=== PATIENT | male | born 1940 | race Caucasian/White ===

== ENCOUNTER 2016-09-21 15:46 | Inpatient (IN) | payer MEDICARE ==
[~2016-09-21] VITALS: Ht 172.7 cm; Wt 122.1 kg
[2016-09-21] MEDS: 0.9% Sodium Chloride 1,000 ML IV SCH ×4 (01:15→23:10)
[2016-09-21 19:00] VITALS: BP 98/54; O2SAT 86
[2016-09-21] MEDS ORDERED: Norepinephrine 8,000 mCg/250 mL NS Premix IV ONE (19:24)
[2016-09-21] MEDS ORDERED: Vasopressin 20 Units/100 mL NS IV PRN ×2 (19:30)
[2016-09-21] MEDS ORDERED: Propofol Inj 1,000,000 MCG in IV Premix 1 EACH IV SCH (19:34)
[2016-09-21] MEDS ORDERED: Lactated Ringer's 1,000 ML IV SCH (19:34)
[2016-09-21] MEDS ORDERED: Lactated Ringer's 1,000 ML IV PRN (19:34)
[2016-09-21] MEDS ORDERED: Acetaminophen IV 1,000 MG in IV Premix 1 EACH IV PRN (19:35)
[2016-09-21] MEDS ORDERED: Ondansetron 2 mg/mL 2 mL Inj IVPUSH PRN (19:35)
[2016-09-21] MEDS ORDERED: Midazolam Inj 100 MG in IV Premix 1 EACH IV SCH (19:38)
[2016-09-21] MEDS: Sodium Bicarb(50 mEq) 8.4% Inj 150 MEQ in Dextrose 5% 1,000 ML IV SCH (19:38)
[2016-09-21] MEDS ORDERED: Cisatracurium 200,000 mCg/100 mL NS IV SCH ×2 (19:40)
[2016-09-21] MEDS ORDERED: Phenylephrine/NS-PF 100 mCg/mL 5 mL Syringe IVPUSH PRN (19:40)
[2016-09-21] MEDS ORDERED: Cisatracurium 2,000 mCg/mL 10 mL Inj ONE (19:43)
[2016-09-21 20:00] VITALS: BP 112/82; PULSE 110; RESP 35
[2016-09-21] MEDS: Vasopressin Inj 20 UNIT in 0.9% Sodium Chloride 100 ML IV SCH (20:00)
[2016-09-21] MEDS: Cisatracurium Inj 200,000 MCG in 0.9% Sodium Chloride-Pha MIX 100 ML IV SCH (20:00)
[2016-09-21] MEDS: Phenylephrine 20 mg/250 mL D5W IV SCH ×2 (20:20)
[2016-09-21 20:28] LABS: BASOPHILS % (AUTO) 0.3 % (0-3); EOSINOPHILS % (AUTO) 0 % (0-5); MONOCYTES % (AUTO) 6.4 % (4-12); Mean Corpuscular Hemoglobin 29.4 pg (27.0-35.0); Mean Corpuscular Volume 90.3 fL (81-100); NEUTROPHILS % (AUTO) 18.7 % (40-74); Platelet Count 231 bil/L (150-400)
[2016-09-21 20:35] LABS: INR 1.1 ratio
[2016-09-21 20:59] LABS: Magnesium 2.2 mg/dL (1.6-2.6); Phosphorus 4.9 mg/dL (2.5-4.9); TROPONIN T 0.034 ug/L (0.0-0.011)
[2016-09-21 22:00] VITALS: BP 106/62; O2SAT 93
[2016-09-21] MEDS ORDERED: 0.9% Sodium Chloride 1,000 ML IV ONE (22:00)
[2016-09-21] MEDS ORDERED: Cefepime Inj 2,000 MG in Dextrose 5% Minibag Plus 100 ML IV SCH (22:30)
--- NOTE | 2016-09-21 23:06 | ABG ---
DateTimeAnalyzed 22:58:00 -_ pH ____7.250 - pCO2 ___41.4__ -mmHg pO2 ___45.0__ -mmHg HCO3- ___17.5__ -mmol/L ABE ___-8.7__ -mmol/L tHb ___10.8__ -g/dL O2Hb ___76.6__ -% COHb ____1.0__ -% MetHb ____1.2__ -% sO2 ___78.3__ -% FIO2 __100.0__ -% PRVC 35 - PEEP ___12.0__ -cmH2O Set_RR ___35.0__ -b/min Vt __470.0__ -L Drawn By RN - Date/Time Notified____ 23:06:00 -_ Oxygen Device 1 NASAL CPAP - Notified Whom RN - B 754 -mmHg tO2 ___11.6__ -Vol% Jeevan test N/A -
[2016-09-21] MEDS: Vancomycin Dose per Pharmacist XX SCH (23:10)
[2016-09-21] MEDS: fentaNYL 2,500 mCg/250 mL 2,500 MCG in IV Premix 1 EACH IV PRN (23:20)
[2016-09-21] MEDS: Norepineph 8,000 mCg/250 mL NS 8,000 MCG in IV Premix 1 EACH IV PRN (23:34)
[2016-09-21 23:45] VITALS: BP 114/61; O2SAT 95
--- NOTE | 2016-09-21 23:49 | PROCED ---
[address] [address] PROCEDURE NOTE PATIENT: BRITTNEY CASILLAS : 1940 MR#: [id number] ADMIT: 09/21/2016 JOB ID: [id number] DATE OF SERVICE: 09/21/2016 POSTOPERATIVE DIAGNOSIS(ES): PREOPERATIVE DIAGNOSIS(ES): SURGEON: PROCEDURE: Right internal jugular central venous line. INDICATIONS: The patient is a 76-year-old male transferred this evening from [facility] with sepsis. The patient is intubated and has very poor IV access. He has also been on several different pressors and has a need for a central venous line. He has no obvious contraindications. PROCEDURE: The right neck was shaved up to the jaw and the area was prepped and draped in the usual manner using a full barrier technique with gown, gloves, mask, head cover, handwashing and sterile drapes. ChloraPrep prep was used prior to placing the drape. Ultrasound was used sterile sheath identifying the right internal jugular vein superior and lateral to the right internal carotid artery. An initial puncture was made into the internal jugular vein with aspiration of venous blood, but the wire would not thread. A second puncture was successful with easy threading of the wire and placement of a triple-lumen minocycline-impregnated Cook central line into 20 cm without problems. At no time was there aspiration of arterial blood or air. Of note, a prior attempt had been done on the same side somewhat lateral to this site. The line was secured in a sterile fashion. An x-ray was obtained that showed the central line in the superior vena cava. There is no evidence of pneumothorax.
[2016-09-22] VITALS (11 sets, daily range): BP systolic 82–131; BP diastolic 46–86; PULSE 111–124; RESP 21–35; O2SAT 94–100
--- NOTE | 2016-09-22 00:26 | PCM.HPMED ---
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 Patient was not initially admitted at [facility] due to ongoing weakness, confusion, nosebleed, chest pain, and continuing shingles. The family checked in on the patient at [facility] where the patient was found to be less conversive, mildly confused, and had ongoing nosebleed. Family denies any recent fevers or chills, cough, or respiratory distress. Patient was treated at [facility] and was getting progressively better from a cognition standpoint before developing hypotension and acute respiratory distress early this morning at 0100. By 10 AM the patient was requiring BiPAP and was soon intubated thereafter. Hypotension seems to been refractory to fluid resuscitation, although there is some confusion over whether the patient only received 1 L normal saline, or if he received more. In any case, the patient was then placed on 3 pressors, norepinephrine, phenylephrine, and vasopressin. Once stabilized the patient was transferred to [facility] and arrived here around 1999. Recent visit to [facility] on 09/15/2016 was due to ongoing shingles, blurry vision, and acute worsening cognition/confusion. At that time the patient had a high blood pressure in the 180s or above and MRI CT were suggestive of ongoing progressive reversible encephalopathic syndrome. Patient was placed on acyclovir orally, and cream, and sent home with reassurance. By Wednesday the patient presented to [facility] for the reasons noted above. Patient has no sick contacts at assisted living. Initial sign out from [facility] is that the patient likely has aspiration pneumonia. On chest x-ray there is a progressive right lower lobe infiltrate, and increasing left pleural effusion with some suggestion of consolidation. Patient was started on Zosyn this morning at [facility], and again, we are unsure of the amount of fluid that the patient was given at this time. On arrival to [facility] , the patient was on 100% FiO2, 12 of PEEP, respiratory rate of 35, and tidal volumes of 600ml. Initial blood gas at [facility] showed the patient's pH to be 7.35, however initial blood gas here appears to show a pH of 7.1. Patient's arterial line soon became inaccessible and anesthesia was consulted without being able to reestablish that line; blood pressure cuff currently showing blood pressures above 130/80. Venous blood gases are ordered and pending. Patient was also transferred with a double lumen PICC line in the left arm, and an additional central line was placed by anesthesia in the right IJ. Pressors were reduced after patient was stabilized, including stopping phenylephrine and vasopressin, but leaving Levophed. Patient was initially fluid resuscitated with 1-2 L normal saline, with plans for additional bolus. Nimbex, fentanyl, propofol/ Versed were continued or started upon arrival. The Nimbex due to the patient fighting the vent and high peak pressures. Discussion was had with respiratory therapy about decreasing the tidal volume of the patient to 6 mL/kg and reducing RR after blood gas was obtained. Labs from the [facility] are currently in the chart with selective review here: White count 6.0, hemoglobin 11.8, hematocrit of 34.4, platelets of 164 Sodium 132, potassium 4.3, chloride 100, bicarbonate 21, BUN 40, creatinine is 2.4 to glucose is 121, calcium 7.8, lactic acid 1.4, last troponin was 0.02 on September 17 Influenza A and B rapid screens are negative Review of Systems: All systems reviewed, with pertinent positives and negatives per history of present illness. All other systems reviewed and found negative per discussion with family and with review of records from [facility]. Allergies Coded Allergies: No Known Allergies (Unverified , 09/22/16) Home Medications Acyclovir Losartan 50 mg once daily Omeprazole 20 mg once daily Paroxetine 30 mg daily PMH Taken from last urgent care note dated 06/17/2016 CLL Hypertension Hyperopia Hypercholesterolemia GERD [place] depression Cataracts Surgical History None listed Family History Father had high blood pressure Social History Hx Substance Use: No Hx Tobacco Use: Yes Smoking Status: Former Smoker (20-30 pack year) Living Arrangement: Assisted Living Exam Vital Signs Vital Sign - Last Date Time Temp Pulse Resp B/P Pulse Ox O2 Delivery O2 Flow Rate FiO2 09/21/16 19:00 112 98/54 86 100 Exam Gen: Patient sedated, intubated, well-nourished HEENT: PERRL, membranes dry, large neck Cardio: Regular rhythm, tachycardia, no murmurs noted Respiratory: Anteriorly crackles in the right base, decreased breath sounds in the right and left base, rhonchus in the right middle lobe Abdomen: Mildly distended, soft, no noticeable hepatomegaly, no pulsatile masses : [place] in place Skin: Shingles on the left shoulder anteriorly and superiorly, late healing stage Extremities: Pulses are mild to moderately difficult to palpate, no edema noted , no cyanosis Neurologic: Patient sedated unable to perform motor functions or to converse in any manner Psych: patient sedated Lab and Diagnostics Result Diagram: 09/21/16200909/21/162009 X-Rays, CTs and MRIs Chest x-ray; portable Impression: #1. New endotracheal tube is present, with tip in expected position. #2 increasing bibasilar opacities on the right, consistent with atelectasis versus evolving bronchopneumonia. Persistent small left basal pleural effusion. Dictated by: Pool Carl M.D. on 09/21/2016 at 3:42 PM 12-lead ECG Normal sinus rhythm at 116 bpm, left axis deviation present, QTC 478, mild widening of QRS complex (104 ms) Assessment & Plan Problem list #1 acute hypoxic respiratory failure #2 septic shock #3 presumed aspiration pneumonia #4 left pleural effusion #5 acute kidney injury #6 acute lactic acidosis #7 CLL #8 prior smoker with suspected COPD #9 shingles #10 encephalopathy of unknown cause #11 decubitus ulcer Neurological: Patient has a recent history of acute confusion with hospital admission and resolution of confusion during those stays. It is of note that he is also had recent shingles infection that began around the same time as confusion. He has been treated with acyclovir physical exam appears that the lesions are well into the healing stage. Still, there is some concern that this patient has herpetic encephalopathy versus hypertensive encephalopathy as diagnosed by [facility] by MRI. This MRI scan is not available but presumably showed PRES syndrome. For now will continue to sedate the patient with Versed and fentanyl. The patient has propofol on order but this is being withheld as the patient is already hypotensive and we are trying to decrease his pressor requirements due to no organ dysfunction. Currently stable on versed. Consider lumbar puncture after patient stabilized. Cardiac: Per the family the patient has no history of CHF or atrial fibrillation and we have no records indicate such. The patient was hypotensive down into the 70s over 40s while at [facility] without presumed response to fluid resuscitation prior to transfer. The patient was placed on norepinephrine , phenylephrine, and vasopressin prior to transfer and on arrival his blood pressure was 130s over 80s. On labs the patient had new acute kidney injury and pressors were quickly weaned down over the course of 2 hours. He was given up to 4 L of normal saline for fluid resuscitation and maintained on norepinephrine with discontinuation of phenylephrine and vasopressin. We will continue to monitor at this time and use additional fluids as needed. Of note, the patient's arterial line is no longer usable for blood draws or to track blood pressure and new arterial line will need to be placed in the a.m. Respiratory: Patient presented with severe hypoxia and was requiring 100% FiO2, 12 of PEEP, respiratory rate of 35, and tidal volumes were initially 600 mL but was quickly taken down to 470 mL. With this reduction tidal volume the patient still maintained peak pressures over 40 and with subsequent VGB (ABG was unavailable) showing improvement in patient's acidosis, tidal volumes were again reduced to 6 mL/kg. Patient still remains on 100% FiO2 12 of PEEP and respiratory of 35 however we will continue to try to wean these down as appropriate. Chest x-ray reveals right lower lobe consolidation and left pleural effusion. Patient also has suspected underlying COPD which will complicate his pulmonary course. He also has new presumed aspiration pneumonia and is being treated currently with meropenem and vancomycin until MRSA swab returns. Renal: Patient presented to [facility] with a creatinine of 0.8, however over the subsequent days prior to his transfer here he was having a slow increase in his creatinine up to 1.6 and after pressure support his creatinine on arrival here was 2.21. This acute kidney injury is likely due to hypoperfusion/prerenal secondary to dehydration and excessive pressure support with 2 peripheral vasoconstrictors and Levophed. At this time we have bolused the patient 4 L of normal saline and we will continue him on normal saline 125 mL an hour. We will consider changing her resuscitation fluids to LR should the patient need additional boluses since he already has a metabolic acidosis. Also continue to trend labs. Infection: Patient presents in septic shock requiring pressure support likely due to aspiration pneumonia versus decubitus ulcer on his buttocks. Patient also had a recent bout of shingles and has CLL for which she has undergone chemotherapy. Is uncertain at this time what chemotherapy and one this chemotherapy was stopped the patient's continues to have mild to moderate thrombocytopenia and neutropenia at this time. Patient's vitals show a fever over 38, tachycardia, hypotensive, pro-calcitonin over 21, and a lactic acid of 4.8 which is new as the patient's labs at [facility] showed a lactic acid level I.4. We have boluses patient numerous liters of fluid and started the patient on meropenem to cover both the aspiration pneumonia and possibility of neutropenic fever, as well as start the patient on vancomycin as he has two recent stays at [facility] and [facility]. MRSA swab is been ordered along with 3 sets of blood cultures, sputum culture, and fungal blood cultures. Patient is also on acyclovir due to concern of herpetic encephalopathy. Influenza swab was sent to the lab. Viral PCR per day team. Recommend ID consultation. We will trend out his lactic acidosis. Skin: Patient has healing shingles over the left anterior and superior shoulder , as well as a decubitus ulcer. Wound care to be consult and for care of the ulcer which seems to be acute since being admitted to [facility]. Currently nursing is clean and the wound and cultures obtained from that wound. Heme/onc: Unsure of current course. There is nothing available in [employer] to suggest that it is being treated by our oncologists. More information is needed. Disposition: Is a very sick 76-year-old male who has been admitted to the CCU, intubated and sedated, with expected length of stay greater than 2 minutes due to severity of presenting illness, duration of treatment, risks of adverse events. Pain Evaluation: Adequate Pain Control GI Prophylaxis: H2 germaine Resuscitation Status: CPR: Attempt Resuscitation Time spent 1 hour of critical care time spend Attending Statement The patient was seen and examined together with Dr. Garcia on 09/21/16 and I agree with the history, exam and plan as outlined in the note above. Shine Garcia DO Sep 22, 2016 00:26 Shaka Nayak MD Sep 22, 2016 00:47
[2016-09-22 00:27] LABS: APPEARANCE,URINE CLOUDY (CLEAR,HAZY); COLOR,URINE YELLOW (YELLOW); OCCULT BLOOD,URINE LARGE (NEGATIVE); PH,URINE 5.5 (5.0-8.0)
[2016-09-22] MEDS ORDERED: 0.9% Sodium Chloride 250 ML ONE (00:33)
[2016-09-22] MEDS: SODIUM CHLORIDE 0.9% IV SCH ×2 (01:14→11:33)
[2016-09-22] MEDS: ACYCLOVIR IV SCH ×2 (01:14→11:33)
[2016-09-22] MEDS: Phenylephrine 20 mg/250 mL D5W IV SCH ×4 (02:05→07:44)
[2016-09-22] MEDS: Norepineph 8,000 mCg/250 mL NS 8,000 MCG in IV Premix 1 EACH IV PRN ×5 (02:23→20:47)
[2016-09-22] MEDS: Meropenem Inj 2,000 MG in 0.9% Sodium Chloride 100 ML IV SCH ×2 (02:24→11:32)
[2016-09-22] MEDS: 0.9% Sodium Chloride 1,000 ML IV SCH ×5 (02:27→20:46)
[2016-09-22] MEDS: Sodium Bicarb(50 mEq) 8.4% Inj 150 MEQ in Dextrose 5% 1,000 ML IV SCH ×2 (02:55→11:33)
--- NOTE | 2016-09-22 05:29 | ABG ---
DateTimeAnalyzed 05:24:00 -_ pH ____7.240 - pCO2 ___45.6__ -mmHg pO2 ___42.8__ -mmHg HCO3- ___18.8__ -mmol/L ABE ___-7.8__ -mmol/L tHb ___11.0__ -g/dL O2Hb ___74.2__ -% COHb ____0.8__ -% MetHb ____1.3__ -% sO2 ___75.8__ -% FIO2 ___90.0__ -% PRVC 35 - PEEP ___14.0__ -cmH2O Vt __410.0__ -L Drawn By RN - Date/Time Notified____ 05:29:00 -_ Spontaneous_RR ___35.0__ -b/min Oxygen Device 1 VENTILATOR - Notified By BLF - Notified Whom COUNT INCLUDES [facility] -_ B 751 -mmHg tO2 ___11.5__ -Vol% Jeevan test N/A -
[2016-09-22 05:51] LABS: BASOPHILS % (AUTO) 0 % (0-3); EOSINOPHILS % (AUTO) 0 % (0-5); NEUTROPHILS % (AUTO) 22.5 % (40-74); Platelet Count 157 bil/L (150-400)
[2016-09-22] MEDS: Chlorhexidine 0.12% 15 mL Oral Solution MT SCH ×5 (05:57→20:46)
[2016-09-22] MEDS: Vasopressin Inj 20 UNIT in 0.9% Sodium Chloride 100 ML IV SCH (05:58)
[2016-09-22] MEDS: Cisatracurium Inj 200,000 MCG in 0.9% Sodium Chloride-Pha MIX 100 ML IV SCH ×2 (05:58→11:33)
[2016-09-22 06:05] LABS: INR 1.29 ratio
[2016-09-22 06:33] LABS: Magnesium 1.8 mg/dL (1.6-2.6); Phosphorus 5.4 mg/dL (2.5-4.9)
--- NOTE | 2016-09-22 06:36 | NUR ---
admit/shift note admit done per info given from pt's family, see admit info and assessment, pt received from [facility] to ccu room 2010 per ousmane, left radial a line stopped working soon after arrival, anesthesiologist in to fix, unable, difficult candidate for another a line, resident attempted right ij cvl-unsuccessful, anesthesiologist in and right ij cvl placed, cxr done, cvl ok to use and ett in good position per anesthesiologist reading, cvp=14-15-un corrected, ivf per orders, lactic acid followed t/o shift, pt with minimal uop until approx 0300, 850ml uop this shift per f/c, smear bm, bc's and fungal cultures sent per orders, sputum spec sent to lab, urine spec sent to lab, mrsa swab sent to lab, flu swab sent to lab, buttock pressure ulcer swab sent to lab, aida gtt and vasopressin weaned off within couple hours of pt's arrival, norepi gtt down to 0.2mcg/kg/min, map >65, bicarb gtt per orders, ns 4 liters ivf boluses given, ns now at 125ml/hr, pt sedated on versed at 2mg/hr, fentanyl gtt at 25mcg/hr, propofol gtt on hold with md silveira, bis=40's, nimbex gtt on at 1mcg/kg/min, weaned down, tof 1/4, on for resp status, ls - course, see ccu flow sheet for vent settings, see ccu flow sheet, plan:bp and vent support, wound care consult ordered for pressure ulcer, abrasion to left shoulder area noted and md aware, md aware of vbg's t/o shift, rt unable to get abg, am cxr done, fio2 decreased from 100% to 90%, peep at 14 per orders, Addendum: 09/22/16 at 0701 by BALJINDER FISCHER RN am labs back at 0645, reported to day shift rn,
[2016-09-22] MEDS: Vancomycin Dose per Pharmacist XX SCH (07:44)
[2016-09-22] MEDS ORDERED: Heparin 5,000 Unit/mL Inj SUBQ SCH (08:30)
--- NOTE | 2016-09-22 09:13 | DRSVH ---
PROCEDURE: X-RAY CHEST ONE VIEW, PORTABLE ([id number]) INDICATIONS: line placement TECHNIQUE: One view of the chest was acquired. COMPARISON: Outside Film, CR, XR CHEST 1V PORTABLE, 09/21/2016, 14:59. [facility], CR, XR CHEST 1V PORTABLE, 09/21/2016, 4:36 PM. FINDINGS: Surgical changes and devices: ETT present it projected 5.5 cm above the eh. Nasogastric tube tip traverses the GE junction. Right IJ CVL is been placed tip projected over the mid to lower SVC. Le ft PICC present with tip projected over the mid superior vena cava. Lungs and pleura: Diffuse, interstitial and airspace opacity present throughout the right lung and th ere is bibasilar consolidation. No pneumothorax. The lung bases are not completely imaged and small effusions cannot be excluded. Mediastinum: Mediastinal contours appear normal. Heart size is normal. Bones and chest wall: No suspicious bony lesions. Overlying soft tissues appear unremarkable. IMPRESSION: 1. Support lines and tubes as above. 2. Abnormal opacity within the right lung and the lung bases consistent with pulmonary edema and/or d iffuse bilateral inflammatory process. Recommend clinical correlation and followup. Dictated by: Francisco Javier BASSETT Interpreted: Jammie Drake MD on 09/22/2016 at 9:13 Transcribed by: MANI on 09/22/2016 at 9:13 Approved by: Jammie Drake M.D. on 09/22/2016 at 16:10
--- NOTE | 2016-09-22 09:59 | DRSVH ---
PROCEDURE: X-RAY CHEST ONE VIEW, PORTABLE ([id number]) INDICATIONS: intubated/pneu TECHNIQUE: One view of the chest was acquired. COMPARISON: [facility], CR, XR CHEST 1VW (PORTABLE), 09/21/2016, 22:45. FINDINGS: Surgical changes and devices: Stable position of ETT, nasogastric tube, left PICC and right IJ CVL. Lungs and pleura: Aside from technique differences, no significant interval change in interstitial an d air space opacities throughout the right lung and the lung bases were visualized. No pneumothorax. Mediastinum: Mediastinal contours appear normal. Heart size is normal. Bones and chest wall: No suspicious bony lesions. Overlying soft tissues appear unremarkable. IMPRESSION: 1. Stable support lines and tubes. 2. Pulmonary edema and/or bilateral pneumonia not significantly changed. Dictated by: Francisco Javier Antonio [facility] Interpreted: Jammie Drake MD on 09/22/2016 at 9:58 Transcribed by: MANI on 09/22/2016 at 9:58 Approved by: Jammie Drake M.D. on 09/22/2016 at 16:15
--- NOTE | 2016-09-22 10:45 | NUR ---
Wound Care Wound evaluation received, pt seen at bedside. The patient is a 76-year-old gentleman who lives at a local assisted living facility.Transferred to [facility] from [facility] with sepsis late on 09/21/16. Pt is intubated and sedated on a bariatric bed. While patient is suffering from some sort of skin rash perhaps viral that our ID physician is looking into, his other issue is a nonstageable pressure ulcer on his left ischium that is 5 cm L x 3 cm W and flush. Patient is also noted to have dark tarry stool which has fouled the patients wound. I don't believe a dressing will be able to stay in place under these continence conditions so we will need to keep pt clean and offloaded, may require a surgical consult once patient has stabilized. Pt on an appropriate bed at this time. Wound to follow as needed.
--- NOTE | 2016-09-22 10:55 | NUR ---
NUTRITION ASSESSMENT: ASSESS: Pt is a 76yo M admitted to CCU for sepsis and respiratory distress. Pt is currently intubated and NPO. There is concern for aspiration pneumonia. Pt is currently on chemotherapy for CLL. He was recently treated for shingles. PMHX: CLL, HTN, hypercholesterolemia, GERD, cataracts, COPD LABS: Reviewed. Na 133, Bun 43, Instrument Lens Generator 2.25, Glu 225, Lactic acid 3.5, Ca 6.4, phos 5.4, T. bili 1.4, AST 444, AT 291, Alb 2.4 MEDS: Reviewed. Fentanyl, norepinephrine GI: BMx1 09/22 SKIN: Mario 10, shingles CURRENT WTS: 123.7kg, BMI 41.5kg, admit wt 116kg, IBW 70kg DIET: NPO EST. NEEDS: BMI, VENT (based of admit wt) Kcals: 2320-2550kcal/day (20-22kcal/kg) Pro: 105-120g/day (1.5-1.8g/kg IBW) Fluid: ~2900ml/day (25cc/kg) NUTRITION DIAGNOSIS: 1.) Inadequate oral intake related to decreased ability to consume sufficient energy as evidenced by current NPO status. NUTRITION INTERVENTION: 1.) Will continue to monitor NPO status and possible need for nutrition support. If TF is to start, recommend start Jevity 1.5 @ 10ml/hr. If tolerated, advance by 10ml q 4 hrs until reach goal rate of 75ml/hr to provide 2475kcal and 105g pro (100% estimated needs). Fluid flush 40ml q 4 hrs. MONITOR / EVAL: NPO/vent, wt, labs, GI, POC, nutrition status. Will continue to monitor per high nutrition risk guidelines Addendum: 09/24/16 at [address] Per discussion during CCU rounds, will continue to hold off on enteral nutrition d/t pt's continued high need for pressors.
[2016-09-22] MEDS ORDERED: Insulin Human REGular Inj 100 UNIT in 0.9% Sodium Chloride-Pha MIX 100 ML IV SCH (11:04)
--- NOTE | 2016-09-22 11:53 | CONS ---
[address] [address] CONSULTATION REPORT PATIENT: BRITTNEY CASILLAS : 1940 MR#: [id number] ADMIT: 09/21/2016 JOB ID: [id number] DATE OF SERVICE: 09/22/2016 PULMONARY CRITICAL CARE CONSULTATION NOTE: REASON FOR CONSULTATION: Shock and respiratory failure. 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 He normally resides in an assisted living facility. For the last several months, family members described subtle changes in his mentation, orientation, cognition. Approximately one week ago, he was found quite confused by family at his care facility and admitted to [facility] emergency department. There, he was found to have evidence for varicella zoster eruption involving the left pectoral region and shoulder. It does not appear that he had a lumbar puncture. He remained at that hospital overnight but then was returned to his nursing facility. Imaging done in [place] reportedly yielded a diagnosis of PRES but we do not have those images currently for personal review. Upon return to his care facility, he again became confused and was then admitted to [facility] where he remained until yesterday when he was transferred to our facility. He initially did quite well at [facility], appearing ready for discharge to rehabilitation over the weekend. However, yesterday he became suddenly more confused, tachypneic and hypoxic. There was concern that he had an aspiration event. He was intubated and afterwards became quite hypotensive. He was transferred to our critical care unit on three pressors, intubated and requiring an FiO2 of 1.0. Overnight his hemodynamics have improved and both the vasopressin and phenylephrine have been discontinued. His O2 saturation has improved as well and he now has an O2 saturation of 98% on an FiO2 of 0.9. He was intubated during the night due to his hypoxemia and asynchrony with the ventilator. The patient's adult sons are at his bedside. Report that the patient has no history of chronic cardiac disease. He is a former smoker who quit approximately 30 years ago. His CLL was diagnosed in 1994 and has most recently been managed with ibrutinib from an oncologist at the [facility]. PAST MEDICAL HISTORY: 1. Hypertension. 2. CLL. 3. Gastroesophageal reflux disease. 4. Hypercholesterolemia. OUTPATIENT MEDICATIONS: Ibrutinib, acyclovir, losartan, omeprazole, Paroxetine. DRUG ALLERGIES: None known. SOCIAL HISTORY: He is retired and unmarried. He lives in an extended care facility. He is a former smoker. REVIEW OF SYSTEMS: Not obtainable as the patient is intubated and sedated. PHYSICAL EXAM: This is an obese elderly man who is orally intubated and pharmacologically paralyzed and sedated. Head is normocephalic and atraumatic. Conjunctivae not injected. Pupils equal at 4 mm. Conjunctivae anicteric. He is orally intubated. Visible oral mucosa free of exudate. He has a right internal jugular catheter in place without any associated crepitus, erythema. The trachea is midline. There is no lymphadenopathy in the neck or supraclavicular regions. Chest shows symmetric expansion on inspection. On auscultation he has decreased air movement in all ruiz with scattered coarse crackles. No wheezing is heard. Cardiac examination shows a distant regular rhythm without murmur, gallop or rub. Abdomen is soft, distended. No bowel tones are present. Organomegaly is absent. There are no bruits or masses. Extremities show pallor of the upper nail beds. He has 1+ lower extremity edema. Extremities themselves are warm although pulses are trace palpable at both wrists and ankles. Skin shows crusting lesions in a dermatomal distribution of the left pectoral region and shoulder. There is no extension to the neck or facial regions. In addition, there are numerous raised reddish papules without umbilication or ulceration scattered throughout the trunk and proximal extremities. Neurologic: Intubated, sedated and paralyzed. DATABASE: Is per the electronic medical record. CBC shows a hemoglobin of 10.7, hematocrit of 33, WBC of 3.0 and 157,000 platelets. Chemistry showed sodium of 133, potassium 5.0, chloride of 98, total CO2 of 18, BUN of 43, creatinine of 2.25 with a random glucose of 255. Procalcitonin was 30.8. AST is elevated at 444 and ALT is 291. Magnesium is low at 1.8. Phosphorus elevated at 5.4. Most recent lactate level is 3.5, as of 5:40 a.m. IMAGING: Chest x-ray is personally reviewed. This shows an endotracheal tube in good position with a right IJ tip that lies in the proximal superior vena cava. He has cardiomegaly, bilateral pleural effusions and ground-glass infiltrate involving the right lower lobe. IMPRESSIONS: 1. Hypoxemic respiratory failure. There is history of an aspiration event that preceded his intubation. There is no evidence on his x-ray today for an obstructing process from an aspirated foreign body or food particle, so for now I think we can simply support him. The primary process here appears to be sepsis. He may have either a bacterial pneumonia or dissemination of his varicella infection. 2. Sepsis. Cause for this is unclear at this time. He has indwelling intravascular devices, which could be a source for bacteremia. On the other hand, his chest x-ray has evidence for consolidation in the right lower lobe and the left retrocardiac region. Finally, his skin shows multiple raised reddish papules which are concerning for dissemination, perhaps of his zoster. 3. Acute kidney injury. His prolonged shock state and volume depletion both contributed. Not clear that he received any recent contrast loads or other known nephrotoxic agents. He is not currently receiving any. All current medications have been dose adjusted for his decreased renal function. 4. Altered mental status. With his sedation and paralysis, I am unable to examine him. Altered mental status was the presenting symptom with this illness last week and we need to review his MRI from [place] and consider further neuro imaging as we are able to based on his need for ventilator support. 5. CLL. He is tyrosine kinase inhibitor is currently held. 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 RECOMMEND: 1. Broad-spectrum antibiotics as you are with coverage for gram-negative organisms and Staph aureus. 2. Ventilator support with cautious weaning of airway pressures and FiO2. 3. Routine ICU prophylaxis. 4. Repeat neuro imaging with CT and possibly MRI once extubated. 5. Obtain outside records from [facility]. 6. Serial laboratories. 7. Continued fluid resuscitation. 8. Formal echocardiography to assess LV function, which appears significantly decreased on limited bedside examination. 9. Insulin infusion targeting blood glucose of less than 180. 10. Ongoing discussion with family members regarding plan and goals of care, considering early involvement of palliative care. Thank you for requesting pulmonary critical care consultation on this complex critically ill gentleman. We will continue to follow with you. As of this dictation, a total of 50 minutes critical care time has been expended exclusive of procedures and shared time.
--- NOTE | 2016-09-22 12:14 | CONS ---
[address] [address] CONSULTATION REPORT PATIENT: BRITTNEY CASILLAS : 1940 MR#: [id number] ADMIT: 09/21/2016 JOB ID: [id number] DATE OF SERVICE: 09/22/2016 INFECTIOUS DISEASE CONSULTATION: I thank Dr. Borwn for this timely consult. REASON FOR CONSULTATION: Possible disseminated zoster with septic shock in a patient with underlying CLL. HISTORY OF PRESENT ILLNESS: The patient is a 76-year-old gentleman who lives at a local assisted living facility. He was diagnosed with CLL 20 years ago and has been receiving chemotherapy through an oncology physician in [facility] until very recently. He has planned to switch his care to [facility] to lessen the commute back and forth and as far as we know, he has been receiving chemo up until the recent past, though we are not certain as to the drug, as he really has no records available here whatsoever. On September 15, the patient developed what was described as confusion and a possible rash over his left shoulder. He was taken to the emergency department at [facility] in [place]. There, he was diagnosed with zoster and sent out on oral acyclovir. Because of his confusion, some scans were done, and a diagnosis of posterior reversible encephalopathy was made. Apparently, there was a plan to admit the patient but he had to wait for a sustained period due to a lack of beds or something and eventually, the patient had just decided to go home. He was at home taking acyclovir when he got worse and was admitted to [facility] in [place] on September 17. That admission was for weakness and confusion, basically. They were initially unclear as to what was going on but he was treated with broad-spectrum antibiotics including Zosyn and additional oral acyclovir. He seemed to improve greatly, and I have carefully reviewed the notes from the physician. By September 20, they said the patient looked great and was basically ready for discharge the next morning. 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 Here, he was found to be profoundly acidotic with elevated lactate, elevated procalcitonin and obtundation. He required intubation and is now in the ICU requiring 80% FiO2, as well as high levels of PEEP, to maintain his oxygenation. There are continued concerns about the possibility of zoster playing a role in some of this, as well as underlying bacterial sepsis and/or pneumonia and for this reason, Infectious Disease was consulted. We discussed the case in great detail with the patient's son and granddaughter who accompanied him to the hospital. They report that prior to September 15 he was doing quite well and even driving his own car. He then developed the zoster with confusion, which is unusual for him, and went to [facility] ED as mentioned. He worsened after his ED visit and was therefore admitted for the 3-1/2 or 4 days to [facility], where he initially seemed to dramatically improve with IV antibiotics and then unfortunately, very abruptly declined, necessitating his transfer here and intubation. No additional history is available from the patient. This case discussed in detail with the ICU team, as well as the nursing staff. This case was carefully reviewed with the Wound Management team and in fact, we rolled the patient over and carefully examined all of his wounds. PAST MEDICAL HISTORY: 1. CLL. 2. COPD. 3. GERD. 4. Hypertension. SOCIAL HISTORY: The patient was born to a [place] mother and an [place] father. Notes from the [facility] indicate that he has been 16 years of his early life in [place] and speaks Latvian but with a bit of a Pashto accent. He is said to be an ex-smoker, and we do not have any details about his alcohol use. He worked as a computer application developer in the past. FAMILY HISTORY: Unknown at this point, as the patient is intubated, though it is worth noting that he did spend a lot of his early life in [place]. We probably should make some effort to look for latent tuberculosis. REVIEW OF SYSTEMS: Not possible, as the patient is critically ill, intubated and sedated. PHYSICAL EXAMINATION: Reveals an elderly gentleman lying supine, intubated, in the ICU. Temp 37.4. He has been afebrile since he has arrived but he has only had a couple of measurements of temperature. He is currently with pulse 110, blood pressure 122/58, and is requiring norepinephrine for support of blood pressure at this point. He is currently on 80% and 14 of PEEP with O2 sats in the 90s. Examination of the eyes reveals bilateral arcus senilis with some mild conjunctivitis. His oral cavity is notable for the presence of the endotracheal tube and orogastric tube. There are no herpetic lesions on the lips. The nose appears normal. There are two lesions on his right forehead which are erythematous macular lesions and may be part of the otherwise disseminated exanthem he has. His left shoulder is covered in a confluent, crusting erythematous rash, which does not have any blisters or typical lesions of zoster but could be compatible with a resolving zoster form eruption. Across his lower abdomen there are scattered lesions on both sides which are erythematous, macular and sometimes crusted which could be late zoster or herpes simplex lesions but there are no classic dew drops on a erin pedal seen in early zoster. There are scattered lesions across the upper torso as well. The patient was rolled over and his back is free of lesions but he has a very significant and unstageable left buttock ulcer almost to the anal verge. This lesion was covered in stool when we first rolled him over. He does not have cervical adenopathy. His lungs are relatively clear, except a few crackles in the right base. Cardiac tones tachycardic and difficult to auscultate but no overt murmurs or rubs are heard. Abdomen is slightly distended and hard to examine but I do not appreciate hepatosplenomegaly or ascites. Penis and scrotum were normal, though there are some of the flat, macular, erythematous lesions there which may represent late stages of zoster. The penis and testes themselves are normal; however, a Prado catheter is present. The lower extremities are spared from the erythematous rash. There is no significant edema or skin breakdown present on the lower extremities. There is fair perfusion despite his ongoing vasopressor agents. Neurologic exam cannot be tested. LABORATORIES: Include a white count of 3000, hematocrit 33, platelet count 157. His creatinine is 2.25. Note that it was 0.9 a few days ago in [place]. His ALT and AST have likewise gone way up compared to [place]. His AST is 444 and ALT 291. Total bilirubin 1.4, albumin 2.4. A procalcitonin is 31, up from 22 in the ED last night. Urinalysis, 0-5 white cells. Fungitell has been sent. Multiple cultures are pending including blood and sputum. A rapid influenza screen was negative. More formal multiplex PCR respiratory viral panel is pending. A MRSA screen of the nares is pending. A Gram stain from the decubitus ulcer on the buttock is showing some mixed george. IMAGING: We carefully reviewed the chest x-rays on the screen. They show bilateral interstitial changes, which could be CHF or interstitial pneumonia. IMPRESSION: This is an extremely difficult case, and we lack a lot of details for what happened to his patient prior to this year. He has longstanding chronic lymphocytic leukemia though and has been receiving chemotherapy and is therefore, of course, quite immunosuppressed. He developed zoster of the left shoulder with some confusion about a week ago. It was thought that he had a posterior reversible encephalopathy, and he actually left the [place] emergency department only to be admitted to [place] for three or four days. There, he received antibiotics and good care and improved to the point that he was within hours of discharge when he suddenly deteriorated with hypotension, hypoxia and development of a lactic acidosis. One possibility here is that the patient truly has disseminated zoster. This is fairly rare and mainly seen in transplant patients but can occur in chronic lymphocytic leukemia patients receiving chemotherapy. It typically involves the skin and obviously is present in multiple dermatomes which would appear his zoster formed lesions are. It can cause an encephalitis, hepatitis or a pneumonitis and, indeed, this patient has some evidence of all three of those. This would be a parsimonious explanation for the multiple things that have gone wrong with this patient this week. What might argue against it is the extraordinarily elevated procalcitonin, which is now greater than 30. This brings into it consideration of a secondary bacterial process such as a severe infection arising from his buttock wound, pneumonia, bacterial meningitis conceivably, or an intra-abdominal process. Overall, this is an extraordinarily difficult situation, and the patient is certainly in a high mortality situation. RECOMMENDATIONS: 1. We scraped some of the shoulder lesions and sent them for VZV PCR. This would help to definitively establish the diagnosis of zoster which so far is only a clinical diagnosis. 2. If safe, I would proceed with a lumbar puncture and send it for the BioFire CSF complex of studies, as well as routine cultures and cryptococcal antigen. 3. Serum cryptococcal antigen should be checked. 4. Urine pneumococcal and legionella antigen should be checked. 5. QuantiFERON Gold should be checked, given the fact that the patient grew up in [place]. 6. We await the MRSA screen, as well as blood cultures and other studies. 7. I would proceed to treat the patient aggressively with acyclovir because he may indeed have disseminated zoster. 8. I would continue with meropenem, as it will provide coverage for meningitis pneumonia and the decubitus ulcer. I have discussed dosing of the acyclovir and meropenem with the ICU pharmacist. 9. The patient has already received one dose of vancomycin and his trough is quite high. I doubt that this is all a MRSA process or significantly a MRSA process and would not give any more vancomycin unless we have cultures that would indicate otherwise. 10. Sputum Gram stain and culture should be ordered. 11. Will continue to follow this very complex patient closely with you.
[2016-09-22] MEDS: Famotidine Inj 20 MG in IV Premix 1 EACH IV SCH (12:29)
--- NOTE | 2016-09-22 12:38 | PCM.CHPMED ---
Subjective Date of Service: Sep 22, 2016 Provider requesting consult: Emma Brown MD Primary Physician: Admitting Physician: Biju Landry DO Primary Care Physician: Stephen Attending Physician: Biju Landry DO Chief Complaint: Chief Complaint: Reason for pulmonary consultation: Acute hypoxemic respiratory failure requiring mechanical ventilation secondary to severe sepsis due to suspected aspiration PNA History of Present Illness: PULMONARY CONSULTATION Mr. Villegas is a 76 year old gentleman with history of CLL currently receiving chemotherapy agents, tobacco use history, suspected COPD, and HTN, that presented to [facility] as a transfer from [facility] for management of severe sepsis likely secondary to aspiration PNA. At [facility], reported 1L NS was provided, in addition to levophed, vasopressin, and phenylephrine. He was promptly intubated, and transferred. On arrival, right IJ was placed by anesthesia, the arterial line was removed secondary to poor function, and additional fluid boluses were provided. Vasopressin and phenylephrine were DC'd; fentanyl, nimbex, propofol, and versed were continued. Initial antibiotics included cefepime and vancomycin , currently receiving meropenem. Patient also provided acyclovir IV to treat shingles outbreak of left shoulder. It is pertinent to note that the patient has been admitted to three hospitals within a very short time frame of days. He was previously seen at [facility] for confusion, acute vision changes, and shingles outbreak. Details of this hospitalization have been requested, preliminary chart review implies he had hypertension and received MR studies that presumably revealed posterior reversible encephalopathy syndrome. He was later admitted to [facility] for AMS and ongoing nosebleed, as he was found by family to be not at baseline. He is a resident of [facility], and family reports he was fully functional prior to these unfortunate sequence of events. It is also reported that he is currently receiving chemotherapy for CLL. CLL has been a diagnosis > 20 years. At [facility], he was reported to have been improving and preparing for DC, when he suddenly developed worsening AMS, hypotension, and SOB that ultimately required ventilatory support. Initial ventilatory support recorded as FiO2 100, PEEP 12, RR35, Vt 600mL. Vt was decreased to 470mL shortly after admission. LA has remained elevated, 4.8 on admission. Pulmonary was consulted for ventilator management and optimization. Review of Systems: Unable to obtain secondary to sedation and intubation H Past Medical History Obtained from admission note, as pt was intubated and sedated: CLL Hypertension Hyperopia Hypercholesterolemia GERD Adams depression Cataracts Bedside Blood Glucose: 218 Surgical History Unknown; patient is intubated and sedated Allergies: Coded Allergies: No Known Allergies (Unverified , 09/22/16) Family History Family History Unknown, pt is intubated and sedated Chart review shows: Father had high blood pressure Social History Occupation: UnemployedHx Alcohol Use: NoHx Substance Use: NoHx Tobacco Use: Yes Smoking Status: Former Smoker (20-30 pack year) Living Arrangement: Assisted Living Exam Vital Signs Vital Sign - Last Date Time Temp Pulse Resp B/P Pulse Ox O2 Delivery O2 Flow Rate FiO2 09/22/16 04:24 111 122/58 99 100 09/22/16 04:00 37.4 35 Mechanical Ventilator Intake and Output 09/21/16 09/21/16 09/22/16 Cumulative From/Thru 15:00 23:00 07:00 09/21/16 19:30 - 09/22/16 06:13 Intake Total 6754 ml 6754 ml Output Total 860 ml 860 ml Balance 5894 ml 5894 ml Intake IV Total 6754 ml 6754 ml Output Urine Total 850 ml 850 ml Gastric Drainage Total 10 ml 10 ml # Bowel Movements 1 1 Additional Information: General: Intubated and sedated; no acute distress HENT: Sclera anicteric; ETT in place, mucus membranes dry Neck: Soft, obese, trachea midline Cardiac: Regular rate and rhythm; no murmurs appreciated Respiratory: Adequate air flow all ruiz; no crackles or wheeze appreciated Abdomen: Soft, nontender, nondistended; obese Extremities: BLLE without edema; BLUE trace pitting edema noted distal extremities to forearm; soft restraints BLUE in place : Prado in place; urine yellow Skin: Multiple scabbed circular lesions noted over lower abdomen and groin that appear erythematous without pustule or umbilication formation measuring approx 1.5cm in diameter of erythematous borders, no active bleeding or exudate noted. Additional vesicular and scabbed lesions noted diffusely over left shoulder anteriorly without active bleeding or exudate Neuro: Unable to fully assess secondary to intubation and sedation Psych: Unable to assess at this time secondary to intubation and sedation Lab and Diagnostics Result Diagram: 09/22/1640 09/22/16539 Assessment & Plan Assessment The patient was seen and examined together with Dr. Alfreda Allred on 09/22/16 and I agree with the history, exam and plan as outlined in the note above. PULMONARY CONSULT NOTE Mr. Villegas was emergently transferred from [facility] with severe sepsis likely secondary to aspiration PNA. He required intubation and sedation, fluid resuscitation, use of pressor agents, and paralytics. He was stabilized in the CCU, with pressor weaning, and continued ventilatory support. Infectious disease has been consulted to evaluate the source of infection, including the possibility of disseminated VZV. Chart review reveals multiple recent hospitalizations at [place] and [facility] within recent days for reported AMS. Imaging was performed at these facilities, and requests have been placed to push images to our system. Assessments - Acute hypoxemic respiratory failure - Severe sepsis likely secondary to aspiration PNA - Suspected aspiration PNA Plan: - Continue mechanical ventilation - Insulin gtt to maintain BG < 180 - Recommend repeat neuro-imaging when stable - Appreciate ID input for possibility of disseminated zoster, and possibility for indication and usefulness of LP - Echo complete to evaluate for cardiac component of shock - Continue to wean pressors as tolerated - Additional fluids not indicated at this time - Records request placed to [place] and [facility] - ABGs in am - CXR in am - DVT: Hep q8 - GI: H2B Thank you for this consult, we will happily follow along with you at this time. Total time: 60 minutes Problems: Pain Evaluation: Adequate Pain Control GI Prophylaxis: H2 germaine Resuscitation Status: CPR: Attempt Resuscitation Alfreda Allred DO Sep 22, 2016 12:05 Duc Gerardo MD Sep 22, 2016 14:45
[2016-09-22] MEDS: Midazolam 100 mg/100 mL Premix IV PRN (14:13)
--- NOTE | 2016-09-22 14:44 | ABG ---
DateTimeAnalyzed 14:37:00 -_ pH ____7.369 - pCO2 ___35.1__ -mmHg pO2 ___42.0__ -mmHg HCO3- ___19.8__ -mmol/L ABE ___-4.4__ -mmol/L tHb ___10.8__ -g/dL O2Hb ___77.6__ -% COHb ____0.8__ -% MetHb ____1.4__ -% sO2 ___79.3__ -% FIO2 ___80.0__ -% Pressure_Support ___22.0__ -cmH2O PEEP ___14.0__ -cmH2O Set_RR ___30.0__ -b/min Vt __629.0__ -L Drawn By gj - Date/Time Notified____ 14:44:00 -_ Spontaneous_RR ___30.0__ -b/min Oxygen Device 1 VENTILATOR - Notified Whom __MCBRIDE - B 746 -mmHg tO2 ___11.8__ -Vol% Jeevan test N/A -
[2016-09-22] MEDS: Heparin 5,000 Unit/mL Inj SUBQ SCH (16:43)
--- NOTE | 2016-09-22 17:00 | DRSVH ---
[facility] [address] [place] [address] Echocardiogram Report Name: BRITTNEY CASILLAS MStudy Date: 09/22/2016 Height: 68 in Hospital Exam Location: [facility] Weight: 273 lb Gender: Male BSA: 2.3 m2 : 1940 Age: 76 yrs BP: 122/58 m mHg Reason For Study: SHOCK Ordering Physician: [facility] Performed By: Jake Morgan Referring Physician: SANKET SUN Interpretation Summary The study quality was technically difficult. A contrast injection of Definity was performed to improve assessment of LV function. The left ventricular ejection fraction is grossly normal. The right ventricle is mildly dilated. Right ventricular systolic function is borderline reduced. No meaningful valvular data was obtained. The IVC has a measurement of 24 mm. Procedure: A two-dimensional transthoracic echocardiogram with color flow and Doppler was performed. The study quality was technically difficult. A contrast injection of Definity was performed to improve assessment of LV function. Left Ventricle: The left ventricle is normal in size. The left ventricular ejection fraction is grossly normal. Regional wall motion abnormalities cannot be excluded due to limited visualization. Right Ventricle: The right ventricle is mildly dilated. Right ventricular systolic function is borderline reduced. Mitral Valve: The mitral valve is not well visualized. There is no mitral regurgitation noted. Aortic Valve: The aortic valve is grossly normal. No aortic regurgitation is present. Tricuspid Valve: The tricuspid valve is not well visualized. Pulmonary artery pressures cannot be estimated because of the lack of a measurable TR jet velocity. Pulmonic Valve: The pulmonic valve is not well visualized. Great Vessels: The IVC has a measurement of 24 mm. Pericardium/ Pleura There is no pericardial effusion. There is no pleural effusion. MMode/2D Measurements & Calculations IVC diam: 2.4 cm AoV Openin.6 cm Doppler Measurements & Calculations Ao V2 max MV E max randy MV E/A: 0.69 PA V2 max : 151.9 cm/sec : 74.8 cm/sec : 43.3 cm/sec Ao max P.2 mmHg MV A max randy PA mean PG Ao mean P.1 mmHg : 108.3 cm/sec : 0.32 mmHg LVOT Max Randy : 118.5 cm/sec sev ratio: 0.82 MV dec time Ao V2 mean LV V1 max PG PA V2 mean : 0.14 sec : 96.3 cm/sec : 26.4 cm/sec Ao V2 VTI: 16.7 cm LV V1 VTI PA pr(Accel) : 13.7 cm : 51.0 mmHg Electronically signed by: Álvaro Thomas on Reading Physician:09/22/2016 04:59 PM
[2016-09-22] MEDS ORDERED: 0.9% Sodium Chloride 500 ML IV ONE (17:20)
--- NOTE | 2016-09-22 17:21 | NUR ---
P: Hypotension I: pt on norepinephrine gtt at 0.3mcqs/kg/min. Tried decreasing by small amount and SBP dropped from 130 to 80. Sedated with versed 3 mg/hr and fentanyl 100mcqs/hr. Pt will open his eyes with oral care. Pt does try to resist care. Insulin gtt at Algo 1 infusing. Left arterial line clotted and dc'd with catheter intact. Right calf IO dc'd with catheter intact. Temp max 39.4 and MD notified. cultures already done. Prado patent and draining 700cc. OGT patent and draining minimal amount of green/brown fluid. Family here at bedside and updated on pt's condition and plan of care. With HOB down pt Bp drops momentarily. CVP 10 and 500cc NS bolus given this am. E: Stable. S:Restraints on for pt safety Frequent rounding. Pt in airborne/contact isolation. Awaiting DC of current pt in 2018 and pt will be moved to that room after a head CT.
--- NOTE | 2016-09-22 17:46 | PCM.PNMED ---
Subjective Date of Service Sep 22, 2016 Amy Villegas is a 76-year-old male with CLL currently on chemotherapy with past medical history significant for likely COPD, recent visit to [facility] in [place], and ongoing hypertension directly transferred to [facility] from [facility] due to acute septic shock secondary to presumed aspiration pneumonia. Hospital day 2. Overnight: The patient was titrated off his vasopressin and phenylephrine and was titrated down. No acute events. Today: The patient's arterial line was pulled as it was not working. The patient was taken off his Nimbex due to improved ventilation. He is in the CCU sedated and intubated. ROS is not obtainable. Exam Vital Signs Vital Sign - Last Date Time Temp Pulse Resp B/P Pulse Ox O2 Delivery O2 Flow Rate FiO2 09/22/16 12:30 39.4 124 29 124/60 97 Mechanical Ventilator 80 Intake and Output 09/21/16 09/21/16 09/22/16 Cumulative From/Thru 15:00 23:00 07:00 09/21/16 19:30 - 09/22/16 06:13 Intake Total 6754 ml 6754 ml Output Total 860 ml 860 ml Balance 5894 ml 5894 ml Intake IV Total 6754 ml 6754 ml Output Urine Total 850 ml 850 ml Gastric Drainage Total 10 ml 10 ml # Bowel Movements 1 1 Exam Gen: Patient sedated, intubated, on two point restraints in the CCU, well- nourished HEENT: PERRLA, membranes dry, large neck, R IJ in place Cardio: Regular rate and rhythm, no murmurs noted. Respiratory: Anteriorly crackles in the right base, decreased breath sounds in the right and left base, rhonchus in the right middle lobe. Mechanically ventilated. Abdomen: Obese, soft, no noticeable hepatomegaly, no pulsatile masses : Prado in place Skin: Shingles on the left shoulder anteriorly and superiorly, some healing, other blisters still open Extremities: Pulses are mild to moderately difficult to palpate, no edema noted , no cyanosis. R IO in place Neurologic: Patient sedated Psych: patient sedated IVs and Medications Medications Reviewed: Medications were reviewed in detail Lab and Diagnostics Result Diagram: 09/22/16 0540 09/22/16 0540 X-Rays, CTs and MRIs X-RAY CHEST ONE VIEW, PORTABLE IMPRESSION: 1. Support lines and tubes as above. 2. Abnormal opacity within the right lung and the lung bases consistent with pulmonary edema and/or diffuse bilateral inflammatory process. Recommend clinical correlation and followup. Dictated by: Francisco Javier Antonio RRA Interpreted: Jammie Drake MD on 09/22/2016 at 9:13 12-lead ECG Normal sinus rhythm at 116 bpm, left axis deviation present, QTC 478, mild widening of QRS complex (104 ms) Assessment & Plan Magdaleno Villegas is a 76-year-old male with CLL currently on chemotherapy with past medical history significant for likely COPD, recent visit to [facility] in [place], and ongoing hypertension directly transferred to [facility] from [facility] due to acute septic shock secondary to presumed aspiration pneumonia. Hospital day 2. 1 Acute hypoxic respiratory failure -Secondary to #3 -Patient presented with severe hypoxia and was requiring 100% FiO2, 12 of PEEP, respiratory rate of 35, and tidal volumes were initially 600 mL but was quickly taken down to 470 mL. -Chest x-ray reveals right lower lobe consolidation and left pleural effusion. -Patient also has suspected underlying COPD which will complicate his pulmonary course -Ventilator management per ICU team, appreciate the expertise 2 Septic shock -Vitals on presentation showed fever over 38, tachycardia, hypotension, pro- calcitonin over 21, and a lactic acid of 4.8 which is new as the patient's labs at [facility] showed a lactic acid level I.4 -Etiology likely due to aspiration pneumonia versus decubitus ulcer on his buttocks or disseminated shingles. There is overall concern about the severity of illness of this patient as he is immunocompromised, on current chemotherapy -The patient was hypotensive down into the 70s over 40s while at [facility] without presumed response to fluid resuscitation prior to transfer. -The patient was placed on norepinephrine, phenylephrine, and vasopressin prior to transfer and on arrival his blood pressure was 130s over 80s. -Patient has been aggressively resuscitated with fluid and is off phenylephrine and vasopressin and titrating off norepinephrine -He also has new presumed aspiration pneumonia and was being treated currently with meropenem and vancomycin. Vancomycin was stopped 09/22/16 -MRSA swab is been ordered along with 3 sets of blood cultures, sputum culture, and fungal blood cultures. -Patient is also on acyclovir due to concern of herpetic encephalopathy. -Viral PCR negative. -Dr. Ritter consulted, appreciate the expertise. 3 Presumed aspiration pneumonia - Urine pneumococcal and legionella antigen should be checked. 4 Left pleural effusion -Management per pulmonology team 5 Acute kidney injury -Patient presented to [facility] with a creatinine of 0.8, however over the subsequent days prior to his transfer here he was having a slow increase in his creatinine up to 1.6 and after pressure support his creatinine on arrival here was 2.21. -This acute kidney injury is likely due to hypoperfusion/prerenal secondary to dehydration and excessive pressure support with 2 peripheral vasoconstrictors and Levophed. -Likely has a degree of ATN as well -Ongoing fluid resuscitation -Continue to monitor I and O and daily BMP -Will consider a nephrology consultation if does not continues to improve 6 CLL -No records available thus far but patient appears to be on current chemotherapy per family. 7 Prior smoker with suspected COPD 8 Probable disseminated zoster -Evidence of multiple lesions in multiple dermatomes -Patient has encephalitis, hepatitis and pneumonitis suggesting possible disseminated zoster -Continue on IV acyclovir -Dr. Ritter consulted, appreciate the expertise. 9 Acute encephalopathy -Patient has a recent history of acute confusion with hospital admission and resolution of confusion during those stays. -It is of note that he is also had recent shingles infection that began around the same time as confusion. -At [facility] MRI scan presumably showed PRES syndrome. Records are requested. -Continue to sedate the patient with Propofol and fentanyl. -Serum cryptococcal antigen pending -CT head ordered and pending -Will proceed with LP tomorrow provided patient remains stable 10 Decubitus ulcer, present on admission -Wound care Disposition: Patient remains critically ill and in the CCU. GI Prophylaxis: H2 germaine VTE Mechanical Devices: Intermittant Pneumatic CD Resuscitation Status: CPR: Attempt Resuscitation Attending Statement The patient was seen and examined together with Dr. Khan on 09-22-16 and I agree with the history, exam and plan as outlined in the note above. Patient is on IV insulin drip for glycemic control Aisha Khan DO Sep 22, 2016 17:46 Emma Brown MD Sep 23, 2016 08:08
--- NOTE | 2016-09-22 20:46 | DRSVH ---
PROCEDURE: CT BRAIN WITHOUT CONTRAST ([id number]) INDICATIONS: Preparation for lumbar puncture, encephalopathy. TECHNIQUE: Noncontrast 4.5 mm thick angled axial sections acquired from the foramen magnum to the vertex, with c oronal reformats. COMPARISON: None. FINDINGS: Image quality: Excellent. CSF spaces: Basal cisterns are patent. No extra-axial fluid collections. The ventricles are symmet paxton in size and shape. Brain: No intracranial bleeds or masses. There is cerebral volume loss for age, with resultant vent ricular and sulcal prominence. There are periventricular and deep white matter chronic small vessel ischemic changes. There is intracranial internal carotid artery atherosclerosis. Skull and face: Calvarium and visualized facial bones appear intact, without suspicious lesions. Sinuses: Mastoids are clear. There is severe bilateral ethmoid air cell mucosal thickening. Moderate bilateral frontal sinus mucosal thickening. Moderate right and mild left maxillary sinus mucosal thic kening. Small amount of left maxillary sinus fluid. Moderate to severe bilateral sphenoid sinus mucos al thickening. IMPRESSION: 1. No acute intracranial abnormality. 2. Zapata sinus disease. Dictated by: Adalberto Barker M.D. on 09/22/2016 at 20:44 Approved by: Adalberto Barker M.D. on 09/22/2016 at 20:44
[2016-09-22] MEDS ORDERED: Calcium GLUCO 10% (Gm) 1 Gm/10 mL 50 mL Inj IV ONE (22:10)
[2016-09-22] MEDS ORDERED: 0.9% Sodium Chloride 500 ML ONE (22:12)
[2016-09-22] MEDS ORDERED: Calcium GLUCO 10% (Gm) Inj 2 GM in 0.9% Sodium Chloride 50 ML IV ONE (22:15)
[2016-09-22] MEDS: 0.9% Sodium Chloride 500 ML IV PRN (22:19)
[2016-09-23] VITALS (11 sets, daily range): BP systolic 89–130; BP diastolic 3–65; PULSE 110–130; RESP 16–31; O2SAT 90–100
[2016-09-23] MEDS: ACYCLOVIR IV SCH ×2 (00:04→13:02)
[2016-09-23] MEDS: SODIUM CHLORIDE 0.9% IV SCH ×2 (00:04→13:02)
[2016-09-23] MEDS: 0.9% Sodium Chloride 500 ML IV PRN ×2 (00:05→08:31)
[2016-09-23] MEDS: fentaNYL 2,500 mCg/250 mL 2,500 MCG in IV Premix 1 EACH IV PRN (00:06)
[2016-09-23] MEDS: Heparin 5,000 Unit/mL Inj SUBQ SCH ×3 (00:08→17:03)
[2016-09-23] MEDS: Norepineph 8,000 mCg/250 mL NS 8,000 MCG in IV Premix 1 EACH IV PRN ×5 (00:12→18:02)
[2016-09-23] MEDS: Chlorhexidine 0.12% 15 mL Oral Solution MT SCH ×6 (00:20→22:14)
[2016-09-23] MEDS: Meropenem Inj 2,000 MG in 0.9% Sodium Chloride 100 ML IV SCH ×2 (00:21→13:02)
[2016-09-23] MEDS: Cisatracurium Inj 200,000 MCG in 0.9% Sodium Chloride-Pha MIX 100 ML IV SCH (00:21)
[2016-09-23] MEDS: 0.9% Sodium Chloride 1,000 ML IV SCH ×3 (03:07→17:58)
--- NOTE | 2016-09-23 05:14 | NUR ---
Hypotension/Respiratory/Febrile P: low BP, map>60, levo gtt @ 0.33 mcg/kg/min, corrected cvp 10, NS @ 125 cc/hr, tachycardic HR 120's ST, on PCV mode on vent, fio2 0.80, peep 14+, PC 22, sp02 >92%, Tmax 39.2 C; on propofol and fentanyl gtt sedation, corrected CA 7.52 I: tapered levo gtt, NS 500 cc x 2, given CA gluconate 2gm IV, applied cooling measures. E: low dose levo gtt, uo at least 30-35 ml/hr, cvp 14, temp down to 37.6 C S: bilateral soft restraints on.
--- NOTE | 2016-09-23 05:57 | ABG ---
DateTimeAnalyzed 05:51:00 -_ pH ____7.365 - pCO2 ___33.1__ -mmHg pO2 ___37.9__ -mmHg HCO3- ___18.5__ -mmol/L ABE ___-5.7__ -mmol/L tHb ____9.3__ -g/dL O2Hb ___68.4__ -% COHb ____0.9__ -% MetHb ____1.3__ -% sO2 ___69.9__ -% FIO2 ___80.0__ -% Pressure_Support ___22.0__ -cmH2O PEEP ___14.0__ -cmH2O Set_RR ___30.0__ -b/min Drawn By RN - Oxygen Device 2 PC - Date/Time Notified____ 05:57:00 -_ Spontaneous_RR ___30.0__ -b/min Oxygen Device 1 VENTILATOR - Notified Whom GARCIA ANGELA, RN - B 741 -mmHg tO2 ____9.0__ -Vol% OrderingPhysicianInitials mf - Jeevan test N/A -
[2016-09-23 06:04] LABS: BASOPHILS % (AUTO) 0 % (0-3); EOSINOPHILS % (AUTO) 0 % (0-5); Mean Corpuscular Hemoglobin 29.6 pg (27.0-35.0); Mean Corpuscular Volume 87.8 fL (81-100); Platelet Count 126 bil/L (150-400)
[2016-09-23 08:15] LABS: MONOCYTES % (AUTO) 8 % (4-12); NEUTROPHILS % (AUTO) 25 % (40-74)
[2016-09-23] MEDS: Famotidine Inj 20 MG in IV Premix 1 EACH IV SCH (08:32)
[2016-09-23] MEDS ORDERED: Albumin 25% 50 GM in IV Premix 1 EACH IV ONE (08:45)
--- NOTE | 2016-09-23 08:51 | PROG NOTE ---
[address] [address] PROGRESS NOTE PATIENT: BRITTNEY CASILLAS : 1940 MR#: [id number] ADMIT: 09/21/2016 JOB ID: [id number] DATE: 09/23/2016 INFECTIOUS DISEASE FOLLOWUP NOTE: REASON FOR FOLLOWUP: Probable disseminated zoster with superimposed septic shock secondary to bacterial superinfection. INTERVAL HISTORY: Overnight, the patient has remained critically ill in the ICU. He continues to be on high levels of ventilatory support with 70% FiO2 and 14% PEEP. Additionally, he required large doses of vasopressor agents to maintain a physiologic blood pressure. I discussed the case at the bedside with the nurse, as well as the respiratory therapist. There are still heavy and bloody secretions from the endotracheal tube. He is not having diarrhea. His urine output is low. The patient remains intubated, sedated and obviously cannot supply additional history. PHYSICAL EXAMINATION: Reveals a gentleman who spiked at midnight to 39.2 degrees, pulse 114, blood pressure 92/56. He is on 70% and 14 of PEEP and saturating at 97%. The eyes are with conjunctival pallor but without obvious zoster involvement, though there is some apparent zoster-formed lesions on the right forehead. Oral cavity has the endotracheal tube and orogastric tube. Neck without obvious adenopathy. The upper torso and especially left shoulder probable herpetic/zoster lesions continue to crust, and there is no weeping or blistering lesions noted. The patient's lungs are notable for coarse breath sounds bilaterally. Cardiac tones are somewhat distant but regular. The abdomen soft and without apparent organomegaly. The penis and scrotum normal. Prado catheter in place. There are scattered zoster form lesions across the lower abdomen and pelvis but none on the legs. His feet are surprisingly warm, as are his hands, despite his very high doses of ongoing vasopressor agent. LABORATORIES: Included a white count yesterday of 3000. Today's, for some reason, still pending. Note that yesterday his platelet count was 157. His creatinine is 2.54. Note that fairly recently his creatinine was 0.9. His AST has improved. It was 444 yesterday. It is down to 214 today. ALT is also a bit better from 290 to 250 today. Albumin 1.9. Procalcitonin was 30 yesterday and not repeated today. Cryptococcal antigen is pending. Fungitell pending. QuantiFERON Gold pending, and the VZV PCR we did yesterday during rounds is pending. Cultures include a single blood culture, now 09/09, which just came positive for gram-positive cocci resembling staph. We have no additional information about this blood culture. Sputum shows a few gram-positive cocci, without any polys, and the culture is pending. Urine culture negative. Culture of the decubitus ulcer that was seen yesterday when we rolled the patient over shortly after he was admitted shows a few mixed geogre with no polys. That culture is pending. Respiratory viral PCR is negative. IMPRESSION: This is an extremely complex case of a gentleman with underlying chronic lymphocytic leukemia who has had what appears to be zoster for about 10 days now. This has been associated with periods of confusion and a variety of other symptoms. He was admitted to the [facility] for several days and seemed to dramatically improve with respect to his overall level of energy and alertness and functionality. When he was just about to be discharged from the [facility] three days ago, however, he abruptly decompensated with hypotension, hypoxia, lactic acidosis and overt septic shock. This led to his transfer to this facility. Yesterday, when I first evaluated the patient, I thought it was likely he had disseminated zoster based on the extra dermatomal lesions seen on the skin, as well as possible encephalopathy, definite hepatitis, possible pneumonitis and his overall clinical picture. In addition, obviously, to the disseminated zoster though the patient appears to be in septic shock with hypotension, lactic acidosis and ventilatory-dependent respiratory failure. This likely arose from either the skin and could have arisen from either two sources. One potential source would be the skin lesions of his zoster which has classically been associated with streptococcal or staphylococcal toxic shock. Another possibility would be the decubitus ulcer, which we saw yesterday on his buttocks. At this point, we now have a single positive blood culture, and we do not know yet if this is Staphylococcus aureus or Staphylococcus epidermidis but we are going to have to treat as if it is Staphylococcus aureus and, in fact, potentially methicillin-resistant Staphylococcus aureus. RECOMMENDATIONS: 1. At this point, I would add ceftaroline to the meropenem he is receiving. This would be nonstandard therapy but I think it is potentially unwise to treat the patient with vancomycin, given his diminished renal function and likewise think it would be unwise to add linezolid at this point, given his history of CLL and intermittent thrombocytopenia. Ceftaroline will offer a nontoxic alternative to these antibiotics as we await the identification of the organism seen in blood cultures earlier today. 2. I would continue with acyclovir with strict monitoring of his renal function, as excessive acyclovir can cause crystaluria and further worsen his acute renal failure. 3. I would continue meropenem until we have some idea as to cause of this septic shock.
--- NOTE | 2016-09-23 09:46 | DRSVH ---
PROCEDURE: X-RAY CHEST ONE VIEW, PORTABLE ([id number]) INDICATIONS: intubation TECHNIQUE: One view of the chest was acquired. COMPARISON: [facility], CR, XR CHEST 1VW (PORTABLE), 09/22/2016, 5:17. FINDINGS: Surgical changes and devices: Endotracheal tube tip projected 4.0 cm above the eh. Nasogastric t ube tip traverses the GE junction. Stable position right IJ CVL. Lungs and pleura: Bilateral pleural effusions present, right greater than left. Interval increase in consolidation within the mid right lung and right lung base. Persistent consolidation within the le ft lung base with no significant change. No definite pneumothorax. Mediastinum: Mediastinal contours appear normal. Heart size is normal. Bones and chest wall: No suspicious bony lesions. Overlying soft tissues appear unremarkable. IMPRESSION: 1. Support lines and tubes as above. 2. Bilateral pleural effusions, right greater than left. 3. Bilateral lower lung consolidation, increasing involving the right lung base and similar involving the left. Dictated by: Francisco Javier Antonio [facility] Interpreted: Merry Robison MD on 09/23/2016 at 9:45 Transcribed by: JIM on 09/23/2016 at 9:45 Approved by: Merry Robison MD, PhD on 09/23/2016 at 16:56
--- NOTE | 2016-09-23 09:56 | PCM.PNMED ---
Subjective Date of Service Sep 23, 2016 Subjective PULMONARY PROGRESS NOTE Overnight: Reported decrease in BP, MAP > 60; NS 500 bolus x2 with adequate response in addition to increase in levophed. Stable, no acute events Today: levophed decreased to 0.25, fentanyl and versed gtt continue. Stable, no apparent distress. No insulin requirements. Vent: Pressure control ventilation; FiO2 decreased to 70 with 100 saturation. RR30, PEEP 14; plan to adjust as day progresses Exam Vital Signs Vital Sign - Last Date Time Temp Pulse Resp B/P Pulse Ox O2 Delivery O2 Flow Rate FiO2 09/23/16 05:15 114 92/56 97 80 09/23/16 04:28 Ventilator 09/23/16 04:28 37.8 31 Intake and Output 09/22/16 09/22/16 09/23/16 Cumulative From/Thru 15:00 23:00 07:00 09/21/16 19:30 - 09/23/16 05:47 Intake Total 3483 ml 3746 ml 25084 ml Output Total 700 ml 490 ml 2050 ml Balance 2783 ml 3256 ml 58018 ml Intake IV Total 3483 ml 3746 ml 89140 ml Tube Irrigant 0 ml 0 ml Output Urine Total 700 ml 340 ml 1890 ml Gastric Drainage Total 0 ml 150 ml 160 ml # Bowel Movements 1 Exam General: Intubated and sedated; no acute distress HENT: Sclera anicteric; ETT in place, mucus membranes dry Neck: Soft, obese, trachea midline Cardiac: Regular rate and rhythm; no murmurs appreciated Respiratory: Adequate air flow all ruiz; faint crackles at bases bilaterally; wheeze appreciated Abdomen: Soft, nontender, nondistended; obese Extremities: BLLE trace to mild pitting edema from ankles to mid-calf; BLUE trace pitting edema noted distal extremities to forearm; soft restraints BLUE in place : Prado in place; urine yellow Skin: Multiple scabbed circular lesions noted over lower abdomen and groin that appear erythematous without pustule or umbilication formation measuring approx 1.5cm in diameter of erythematous borders, no active bleeding or exudate noted. Additional vesicular and scabbed lesions noted diffusely over left shoulder anteriorly without active bleeding or exudate, appear dry and healing Neuro: Unable to fully assess secondary to intubation and sedation Psych: Unable to assess at this time secondary to intubation and sedation Lab and Diagnostics Result Diagram: 09/22/16 0540 09/23/16 0540 X-Rays, CTs and MRIs X-RAY CHEST ONE VIEW, PORTABLE IMPRESSION: 1. Support lines and tubes as above. 2. Abnormal opacity within the right lung and the lung bases consistent with pulmonary edema and/or diffuse bilateral inflammatory process. Recommend clinical correlation and followup. Dictated by: Francisco Javier Antonio RRA Interpreted: Jammie Drake MD on 09/22/2016 at 9:13 12-lead ECG Normal sinus rhythm at 116 bpm, left axis deviation present, QTC 478, mild widening of QRS complex (104 ms) Assessment & Plan PULMONARY CONSULT NOTE Mr. Villegas was emergently transferred from [facility] with severe sepsis likely secondary to aspiration PNA. He required intubation and sedation, fluid resuscitation, use of pressor agents, and paralytics. He was stabilized in the CCU, with pressor weaning, and continued ventilatory support. Infectious disease has been consulted to evaluate the source of infection, including the possibility of disseminated VZV. Chart review reveals multiple recent hospitalizations at [place] and [facility] within recent days for reported AMS. Imaging was performed at these facilities, and requests have been placed to push images to our system. He currently remains stable in the CCU intubated and sedated receiving fluids, pressors, and antibiotics. Repeat CT 09/22 did not reveal any acute pathologies. Echo completed 09/22, was a difficult study, but LV was grossly unremarkable with function, and RV was mildly dilated, but unremarkable in function. Assessments - Acute hypoxemic respiratory failure - Severe sepsis likely secondary to aspiration PNA - Suspected aspiration PNA Plan: - Continue mechanical ventilation; plans to wean FiO2 as day progresses - Decrease sedation as tolerated as day progresses - Insulin gtt on standby to maintain BG < 180 - Appreciate ID input for possibility of disseminated zoster, and possibility for indication and usefulness of LP - Continue to wean pressors as tolerated - Records request placed to [place] and [facility], including imaging to be pushed - ABGs in am - CXR in am - DVT: Hep q8 - GI: H2B Thank you for this consult, we will happily follow along with you at this time. Total time: 60 minutes Pain Evaluation: Adequate Pain Control GI Prophylaxis: H2 germaine VTE Mechanical Devices: Intermittant Pneumatic CD Resuscitation Status: CPR: Attempt Resuscitation Alfreda Allred DO Sep 23, 2016 07:54
[2016-09-23] MEDS: Ceftaroline Inj 400 MG in Dextrose 5% 250 ML IV SCH ×2 (10:47→22:45)
[2016-09-23 12:08] LABS: Cryptococcal Ag Negative (Negative)
[2016-09-23 13:14] LABS: APPEARANCE,CSF CLEAR (CLEAR); COLOR,CSF COLORLESS (COLORLESS)
[2016-09-23 13:15] LABS: WHITE BLOOD CELL,CSF 19 /mm3 (0-5)
[2016-09-23] MEDS ORDERED: Alteplase (Cathflo) 1 mg/mL 2 mL Inj IVPUSH ONE ×3 (15:00)
[2016-09-23 15:42] LABS: INR 1.26 ratio
--- NOTE | 2016-09-23 17:42 | PCM.PROC ---
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 The patient was placed in the left lateral decubitus position in a semi- position with help from the nursing staff. The area was cleansed and draped in usual sterile fashion. 1% lidocaine was used anesthetize the surrounding skin area. A 20-gauge 3.5-inch spinal needle was placed in the L3-L4 interspace. Clear cerebral spinal fluid was obtained and the opening pressure was noted to be 53 cm. Four tubes were filled with 4 mL of CSF. These were sent for the usual tests, including 1 tube to be held for further analysis if needed. Dr. Brown was present for the entire procedure Estimated Blood Loss: 1 cc The patient tolerated the procedure well and there were no complications. Post Procedure Plan: CSF PCR, CS, culture, cell count, cytology Attending Statement The patient was seen and examined together with Dr. Khan on 09-23-16 and I agree with the history, exam and plan as outlined in the note above. I was present for the whole procedure, patient tolerated this procedure well, no complications or problem,s notes. Resident did a good job in all regards. Aisha Khan DO Sep 23, 2016 17:42 Emma Brown MD Sep 24, 2016 13:38
--- NOTE | 2016-09-23 18:36 | NUR ---
Ventilation/Hemodynamics/ LP.. Pt has been able to wean on FIO2 and no desats or resp distress noted. Has had intermittent hypotension requiring increase in Levophed. UOP remains marginal, MD's aware. Received one 500 cc bolus for low CVP which improved after fluid. Pt rated a RASS of -4 this am. Over the morning Versed and Fentanyl gtts were weaned down. Pt will slowly open eyes when turned, but is not following commands yet. Noted to have converted to Afib with rates up 125-130. MD updated. Had LP performed at bedside at 1100. Pt marixa well. Fluid sent to lab. Isolation maintained and family is compliant with gowning and masks.
--- NOTE | 2016-09-23 18:45 | PCM.PNMED ---
Subjective Date of Service Sep 23, 2016 Amy Villegas is a 76-year-old male with CLL currently on chemotherapy with past medical history significant for likely COPD, recent visit to [place] in [place], and ongoing hypertension directly transferred to [facility] from [facility] due to acute septic shock secondary to presumed aspiration pneumonia. Hospital day 3. Overnight: Overnight MAPs dropped and patient was bolused 1L of normal saline and continued on 125 ml/hr. Norepinephrine was increased as well. Today: Norepinephrine decreased to 0.25. Fentanyl and versed gtt decreased. Lumbar puncture completed. Stable, no apparent distress. ROS is not obtainable. Exam Vital Signs Vital Sign - Last Date Time Temp Pulse Resp B/P Pulse Ox O2 Delivery O2 Flow Rate FiO2 09/23/16 11:00 109 95/58 97 65 09/23/16 08:00 38.0 31 Mechanical Ventilator Intake and Output 09/22/16 09/22/16 09/23/16 Cumulative From/Thru 15:00 23:00 07:00 09/21/16 19:30 - 09/23/16 05:47 Intake Total 3483 ml 3746 ml 66597 ml Output Total 700 ml 490 ml 2050 ml Balance 2783 ml 3256 ml 28217 ml Intake IV Total 3483 ml 3746 ml 87116 ml Tube Irrigant 0 ml 0 ml Output Urine Total 700 ml 340 ml 1890 ml Gastric Drainage Total 0 ml 150 ml 160 ml # Bowel Movements 1 Exam Gen: Patient sedated, intubated, on two point restraints in the CCU, well- nourished. HEENT: PERRLA, membranes dry, large neck, R IJ in place. Cardio: Regular rate and rhythm, no murmurs noted. Respiratory: Anteriorly crackles in the right base, decreased breath sounds in the right and left base, rhonchus in the right middle lobe. Mechanically ventilated. Abdomen: Obese, soft, no noticeable hepatomegaly, no pulsatile masses. : Prado in place. Skin: Shingles on the left shoulder anteriorly and superiorly, some healing, other blisters still open. Extremities: Pulses are mild to moderately difficult to palpate, no edema noted , no cyanosis. Neurologic: Patient sedated. Psych: Patient sedated. Lab and Diagnostics Result Diagram: 09/23/16 0540 09/23/16 0540 Microbiology CSF positive for VZV MRSA negative Buttock culture positive for staphylococcus aureus Blood cultures 2 out of 4 positive for gram positive cocci Sputum positive for staphylococcus aureus X-Rays, CTs and MRIs X-RAY CHEST ONE VIEW, PORTABLE IMPRESSION: 1. Support lines and tubes as above. 2. Bilateral pleural effusions, right greater than left. 3. Bilateral lower lung consolidation, increasing involving the right lung base and similar involving the left. Dictated by: Francisco Javier BASSETT Interpreted: Merry Robison MD on 09/23/2016 at 9:45 Transcribed by: JIM on 09/23/2016 at 9:45 Approved by: Merry Robison MD, PhD on 09/23/2016 at 16:56 X-RAY CHEST ONE VIEW, PORTABLE IMPRESSION: 1. Support lines and tubes as above. 2. Abnormal opacity within the right lung and the lung bases consistent with pulmonary edema and/or diffuse bilateral inflammatory process. Recommend clinical correlation and followup. Dictated by: Francisco Javier BASSETT Interpreted: Jammie Drake MD on 09/22/2016 at 9:13 12-lead ECG Normal sinus rhythm at 116 bpm, left axis deviation present, QTC 478, mild widening of QRS complex (104 ms) Assessment & Plan Magdaleno Villegas is a 76-year-old male with CLL currently on chemotherapy with past medical history significant for likely COPD, recent visit to [place] in [place], and ongoing hypertension directly transferred to [facility] from [facility] due to acute septic shock secondary to presumed aspiration pneumonia. Hospital day 3. 1. Acute hypoxic respiratory failure, present on admission, active. -Secondary to #3. -Patient presented with severe hypoxia and was requiring 100% FiO2, 12 of PEEP, respiratory rate of 35, and tidal volumes were initially 600 mL but was quickly taken down to 470 mL. -Chest x-ray reveals right lower lobe consolidation and left pleural effusion. -Patient also has suspected underlying COPD which will complicate his pulmonary course. -Ventilator management per ICU team, appreciate the expertise 2. Severe sepsis with shock, present on admission, active. -Etiology likely due to aspiration pneumonia versus decubitus ulcer on his buttocks or disseminated shingles. There is overall concern about the severity of illness of this patient as he is immunocompromised, on current chemotherapy for CLL. -At [facility] patient became hypotensive and unresponsive to fluids and was started on three pressors and transferred to [facility]. -On admission here patient tachycardic, pro-calcitonin 21.82, lactic acid of 4.8 (lactic acid at [facility] was 1.4). -Titrated off phenylephrine and vasopressin. Continues on norepinephrine at 0.25. -Normal saline at 125 ml/hr. -Blood cultures 2 out of 3 positive for gram positive cocci. -Lumbar puncture completed results in #8. -MRSA screen negative. Viral PCR negative. Cryptococcus antigen negative. Legionella and strep pneumonia antigen negative. -Dr. Ritter consulted, appreciate the expertise. 3. Suspected aspiration pneumonia, present on admission, active. -Urine pneumococcal and legionella antigen negative. -Antibiotics: Meropenem and ceftaroline. Vancomycin discontinued 09/22. 4. Lactic acidosis, present on admission, active. -Etiology is likely infectious but patient's CLL likely a contributing factor. -Lactic acid 4.8 on admission. Trending down. -Fluids as above. -Will repeat in the morning. 5. Acute kidney injury, present on admission, active. -Patient presented to [facility] with a creatinine of 0.8, however over the subsequent days prior to his transfer here he was having a slow increase in his creatinine up to 1.6 and after pressure support his creatinine on arrival here was 2.21. -This acute kidney injury is likely due to hypoperfusion/prerenal secondary to dehydration and excessive pressure support with 2 peripheral vasoconstrictors and Levophed. Likely has a degree of ATN. -Fluids at 125 ml/hr. -Continue to monitor I and O and daily BMP -Will consider a nephrology consultation. 6. Chronic lymphocytic leukemia, present on admission, currently undergoing chemotherapy. -No records available thus far but patient appears to be on current chemotherapy per family. 7. Elevated liver enzymes, present on admission, improving. - Etiology likely multifactorial including disseminated zoster and shock liver. - On admission AST and ALT 37 and 40. Currently 214 and 251. - Continue treatment as for #2 and #8. 8. Disseminated zoster, present on admission, active. -Evidence of multiple lesions in multiple dermatomes -Patient has encephalitis, hepatitis, and pneumonitis suggesting disseminated zoster -Continue on IV acyclovir. -Lumbar puncture with high opening pressure. CSF clear, WBC 19, RBC 2, Mononuclear WBCs 100, Polynuclear WBCs 0, Glucose 75, Protein 58. -Dr. Ritter consulted, appreciate the expertise. 9. Acute encephalopathy, present on admission, active. -Patient has a recent history of acute confusion with hospital admission and resolution of confusion during those stays. 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 -It is of note that he is also had recent shingles infection that began around the same time as confusion. -At [place] MRI scan presumably showed PRES syndrome. Records are requested. -Sedation titrated down but continues on Propofol and fentanyl. -Serum cryptococcal antigen negative. -CT head showed no acute intracranial process. -Lumbar puncture with high opening pressure. CSF clear, WBC 19, RBC 2, Mononuclear WBCs 100, Polynuclear WBCs 0, Glucose 75, Protein 58. 10 Decubitus ulcer, present on admission -Wound care consulted. High Risk Medications: IV Insulin, IV Fentanyl Disposition: Patient remains critically ill and in the CCU. GI Prophylaxis: H2 germaine VTE Prophylaxis: Sub-Q Heparin (Unfractionated) VTE Mechanical Devices: Intermittant Pneumatic CD Resuscitation Status: CPR: Attempt Resuscitation Attending Statement The patient was seen and examined together with Dr. Lama on 09-23-16 and I agree with the history, exam and plan as outlined in the note above. MATTHEW LAMA DO Sep 23, 2016 18:45 Emma Brown MD Sep 24, 2016 13:33
[2016-09-23] MEDS: Senna Leaf Extract 528 mg/15 mL Syrup PO SCH (22:37)
[2016-09-24] VITALS (12 sets, daily range): BP systolic 93–135; BP diastolic 53–79; PULSE 96–145; RESP 24–26; O2SAT 96–100
[2016-09-24] MEDS: Meropenem Inj 2,000 MG in 0.9% Sodium Chloride 100 ML IV SCH ×2 (01:03→13:07)
[2016-09-24] MEDS: SODIUM CHLORIDE 0.9% IV SCH ×2 (01:04→13:07)
[2016-09-24] MEDS: Chlorhexidine 0.12% 15 mL Oral Solution MT SCH ×6 (01:04→21:10)
[2016-09-24] MEDS: ACYCLOVIR IV SCH ×2 (01:04→13:07)
[2016-09-24] MEDS: Heparin 5,000 Unit/mL Inj SUBQ SCH ×3 (01:05→15:55)
--- NOTE | 2016-09-24 05:35 | ABG ---
DateTimeAnalyzed 05:29:00 -_ pH ____7.319 - pCO2 ___33.5__ -mmHg pO2 ___43.6__ -mmHg HCO3- ___16.7__ -mmol/L ABE ___-8.1__ -mmol/L tHb ____8.8__ -g/dL O2Hb ___75.5__ -% COHb ____0.8__ -% MetHb ____1.1__ -% sO2 ___77.0__ -% FIO2 ___55.0__ -% Pressure_Support ___22.0__ -cmH2O PEEP ___14.0__ -cmH2O Set_RR ___26.0__ -b/min Drawn By MM - Oxygen Device 2 PC - Date/Time Notified____ 05:34:00 -_ Oxygen Device 1 VENTILATOR - Notified Whom rn - B 743 -mmHg tO2 ____9.4__ -Vol% Jeevan test N/A -
[2016-09-24 05:42] LABS: Mean Corpuscular Hemoglobin 29.2 pg (27.0-35.0); Mean Corpuscular Volume 87.6 fL (81-100); Platelet Count 126 bil/L (150-400)
[2016-09-24 06:19] LABS: BASOPHILS % (AUTO) 0 % (0-3); EOSINOPHILS % (AUTO) 0 % (0-5); MONOCYTES % (AUTO) 5 % (4-12); NEUTROPHILS % (AUTO) 20 % (40-74)
[2016-09-24 06:21] LABS: Phosphorus 4.3 mg/dL (2.5-4.9)
[2016-09-24] MEDS: 0.9% Sodium Chloride 1,000 ML IV SCH ×3 (06:45→21:11)
--- NOTE | 2016-09-24 08:28 | PROG NOTE ---
[address] [address] PROGRESS NOTE PATIENT: BRITTNEY CASILLAS : 1940 MR#: [id number] ADMIT: 09/21/2016 JOB ID: [id number] DATE: 09/24/2016 INFECTIOUS DISEASE FOLLOW UP NOTE: REASON FOR FOLLOW UP: Disseminated zoster including encephalitis, hepatitis, possible pneumonitis and multi dermatomal zoster plus Staph aureus septic shock. INTERVAL HISTORY: Overnight, the patient has remained stable though critically ill in the ICU. Efforts to decrease his ventilatory requirements have been slightly successful as his FiO2 has dropped from 70 to 55 but he remains on 14 of PEEP. His blood pressure has remained extremely fragile and he still requires high doses of norepinephrine at 0.25 mcg/kg per minute which is little change from yesterday. His urine output continues to be lethargic as well though he is managing to keep his creatinine more or less stable. This case was discussed at the bedside with the ICU team. The patient is obviously intubated, heavily sedated and unable to provide any history. Vital signs include temperatures 38.1 axillary during the night. Pulse 101, respiratory rate is ventilator dependent. Blood pressure currently 140/80 on 0.25 of norepinephrine as mentioned. FiO2 55%. The multiple zoster form lesions are starting to fade. These lesions are present on the forehead, the upper torso, intensely confluent over the left shoulder and spread across the lower abdomen. All these lesions are fading or crusting and there are no new vesicular lesions developing. The patient's eyes are notable for chemosis. The oral cavity has the endotracheal tube and orogastric tube in place. Neck is reasonably supple. The lungs with scattered rales at the bases. Cardiac tones: No change. Abdomen: Soft and without apparent organomegaly. The scrotum has increased greatly in size over the past 24 hours as the patient has started to develop anasarca. There is also a very significant edema of the lower extremities bilaterally. The feet are pink and reasonably warm despite his high doses of vasopressor agents. LABORATORIES: Include a white count which has dropped to 2200, hematocrit 25, platelet count has dropped to 126,000. The differential white count includes nucleated red cells and 1% metamyelocytes. Creatinine is 2.62 which has been stable over the three days he has been here, somewhat surprisingly in view of his poor urine output. Liver function tests continue to improve with ALT dropping to 166, albumin is 2.1. Procalcitonin has been very elevated, was 30 two days ago and a repeat is pending though in view of the fact he has Staph sepsis, I am not sure that the procalcitonin has helped as much as our antibiotic duration will be determined by things other than procalcitonin. Micro includes the spinal fluid which was obtained yesterday. There were 19 white cells and a protein of 58 consistent with meningitis or encephalitis. 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 His initial blood cultures are now growing Staph aureus. Susceptibilities are pending. Sputum is also growing Staph aureus and preliminary susceptibilities say this is an MSSA. A culture of the buttock decubitus is growing Staph aureus and sensitivities are pending. MRSA screen of the nares is back and negative. IMAGING: Includes a chest x-ray from yesterday which shows bilateral lower lung consolidation. Today's chest x-ray was just done and I have not had the opportunity to see it yet as it is not yet available. 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 Recall that he presented with zoster involving the left shoulder and some confusion at the onset of these symptoms. He clearly, at this point, has zoster encephalitis, zoster hepatitis, disseminated multi dermatomal skin zoster and possible zoster pneumonitis. Coupled with this has been the development of Staph sepsis which likely arose from defects in the skin caused by the zoster. He now clearly has Staph aureus septic shock with positive blood cultures but also may have Staph aureus pneumonia and certainly has Staph aureus infection of his decubitus ulcer. At this point, we are continuing with IV acyclovir course for his disseminated zoster. He has been treated very broadly with antibiotics including ceftaroline and meropenem while we attempted to sort this case out but I think starting tomorrow will dramatically narrow these antibiotics and tailor them towards just the Staph aureus. For today will continue though with these antibiotics while we make certain that nothing else arises in the cultures from the decubitus or elsewhere. RECOMMENDATIONS: 1. Will continue with acyclovir intravenously. 2. Will continue with ceftaroline and meropenem pending final susceptibilities and culture results. 3. Will continue to closely follow this patient with you. 4. In view of his slight decrease in FiO2, I think there is a bit of room for optimism but the patient remains on very high vasopressor agents and the combination of disseminated zoster plus secondary bacterial sepsis is certainly a high mortality situation.
[2016-09-24] MEDS: Midazolam 100 mg/100 mL Premix IV PRN (08:41)
[2016-09-24] MEDS: fentaNYL 2,500 mCg/250 mL 2,500 MCG in IV Premix 1 EACH IV PRN (08:42)
[2016-09-24] MEDS: Senna Leaf Extract 528 mg/15 mL Syrup PO SCH ×2 (09:00→21:11)
[2016-09-24] MEDS: Ceftaroline Inj 400 MG in Dextrose 5% 250 ML IV SCH ×2 (09:01→21:11)
[2016-09-24] MEDS: Famotidine Inj 20 MG in IV Premix 1 EACH IV SCH (09:01)
[2016-09-24] MEDS ORDERED: Albumin 25% 50 GM in IV Premix 1 EACH IV ONE (09:25)
--- NOTE | 2016-09-24 09:38 | PCM.PNMED ---
Subjective Date of Service Sep 24, 2016 Subjective PULMONARY PROGRESS NOTE Overnight: Nursing reports that patient became agitated and tachycardic with positional turns and routine care. Today: Remains intubated and sedated. BP improved to 147/56 at time of examination, levophed 0.25, midazolam 3mg, fentanyl 100mcg. Labs: Cr 2.62, WBC 2.2; LFTs downward trending Exam Vital Signs Vital Sign - Last Date Time Temp Pulse Resp B/P Pulse Ox O2 Delivery O2 Flow Rate FiO2 09/24/16 05:25 101 105/55 99 55 09/24/16 04:30 37.8 26 Mechanical Ventilator Intake and Output 09/23/16 09/23/16 09/24/16 Cumulative From/Thru 15:00 23:00 07:00 09/21/16 19:30 - 09/23/16 18:34 Intake Total 3089 ml 69037 ml Output Total 400 ml 2450 ml Balance 2689 ml 65710 ml Intake IV Total 3089 ml 59368 ml Tube Irrigant 0 ml Output Urine Total 300 ml 2190 ml Gastric Drainage Total 100 ml 260 ml # Bowel Movements 0 1 Exam General: Intubated and sedated; no acute distress HENT: Sclera anicteric; ETT in place, mucus membranes dry; left corneal edema present Neck: Soft, obese, trachea midline Cardiac: Tachycardic rate and rhythm; no murmurs appreciated Respiratory: Adequate air flow all ruiz; faint crackles at bases bilaterally; no wheeze appreciated Abdomen: Soft, nontender, nondistended; obese Extremities: BLLE mild to moderate pitting edema from ankles to mid-calf; BLUE mild to moderate pitting edema noted distal extremities to forearm; soft restraints BLUE in place : Prado in place; urine yellow; scrotal edema present Skin: Multiple scabbed circular lesions noted over lower abdomen and groin that appear erythematous and resolving; no active bleeding or exudate noted. Additional vesicular and scabbed lesions noted diffusely over left shoulder anteriorly without active bleeding or exudate, continue to appear dry and healing Neuro: Unable to fully assess secondary to intubation and sedation Psych: Unable to assess at this time secondary to intubation and sedation Lab and Diagnostics Result Diagram: 09/24/16 0530 09/24/16 0530 Microbiology CSF positive for VZV MRSA negative Buttock culture positive for staphylococcus aureus Blood cultures 2 out of 4 positive for gram positive cocci Sputum positive for staphylococcus aureus X-Rays, CTs and MRIs X-RAY CHEST ONE VIEW, PORTABLE IMPRESSION: 1. Support lines and tubes as above. 2. Bilateral pleural effusions, right greater than left. 3. Bilateral lower lung consolidation, increasing involving the right lung base and similar involving the left. Dictated by: Francisco Javier BASSETT Interpreted: Merry Robison MD on 09/23/2016 at 9:45 Transcribed by: JIM on 09/23/2016 at 9:45 Approved by: Merry Robison MD, PhD on 09/23/2016 at 16:56 X-RAY CHEST ONE VIEW, PORTABLE IMPRESSION: 1. Support lines and tubes as above. 2. Abnormal opacity within the right lung and the lung bases consistent with pulmonary edema and/or diffuse bilateral inflammatory process. Recommend clinical correlation and followup. Dictated by: Francisco Javier BASSETT Interpreted: Jammie Drake MD on 09/22/2016 at 9:13 12-lead ECG Normal sinus rhythm at 116 bpm, left axis deviation present, QTC 478, mild widening of QRS complex (104 ms) Assessment & Plan PULMONARY CONSULT NOTE Mr. Villegas was emergently transferred [place] [facility] [place] severe sepsis likely secondary to aspiration PNA. He required intubation and sedation, fluid resuscitation, use of pressor agents, and paralytics. He was stabilized in the CCU, with pressor weaning, and continued ventilatory support. Infectious disease has been consulted to evaluate the source of infection, including the possibility of disseminated VZV. Chart review reveals multiple recent hospitalizations at [place] and [facility] within recent days for reported AMS. Imaging was performed at these facilities, and requests have been placed to push images to our system. He currently remains stable in the CCU intubated and sedated receiving fluids, pressors, and antibiotics. Repeat CT 09/22 did not reveal any acute pathologies. Echo completed 09/22, was a difficult study, but LV was grossly unremarkable with function, and RV was mildly dilated, but unremarkable in function. CSF PCR confirmed the presence of zoster. S. aureus has been detected in sputum, blood, and buttock lesion, indicating a staph bacteremia. Infectious disease consulted and following. Assessments - Acute hypoxemic respiratory failure - Severe sepsis likely secondary to aspiration PNA - Suspected aspiration PNA Plan: - Continue mechanical ventilation; plans to wean FiO2 as day progresses - Decrease sedation as tolerated as day progresses - Insulin gtt on standby to maintain BG < 180 - Continue to wean pressors as tolerated - Records request placed to [place] and [facility], including imaging to be pushed; [facility] records sent, awaiting [place] - ABGs in am - CXR in am - DVT: Hep q8 - GI: H2B Thank you for this consult, we will happily follow along with you at this time. Total time: 60 minutes GI Prophylaxis: H2 germaine VTE Prophylaxis: Sub-Q Heparin (Unfractionated) VTE Mechanical Devices: Intermittant Pneumatic CD Resuscitation Status: CPR: Attempt Resuscitation Alfreda Allred DO Sep 24, 2016 09:10
--- NOTE | 2016-09-24 10:16 | NUR ---
GREGORY: Patient unable to receive GREGORY, asked CHINCHILLA FARMER to follow up with family vis phone.
--- NOTE | 2016-09-24 10:36 | PCM.PNMED ---
Subjective Date of Service Sep 24, 2016 Subjective 76 yo man with long h/o CLL [place] [facility] [place] failure and sepsis. He had developed AMS and a zoster eruption involving the Lt. shoulder and had been seen at [facility] last week but returned home before being admitted [place] [facility] [place] he acutely decompensated on 09/22 and was urgently transferred here on triple pressors and mechanical ventilation. He has evidence for disseminated zoster and his CSF is + by PCR for VZV. In addition, sputum, blood and urine have grown S. aureus. No new critical events over noc. FiO2 down to 0.45 and norepi down to 0.22 mcg/ kg/min with BP 122/62. Was reportedly agitated last noc and sedation was increased. Today there is no response to loud voice, nox stim or passive eye opening. Dtr in law at bedside updated as to condition. Exam Vital Signs Vital Sign - Last Date Time Temp Pulse Resp B/P Pulse Ox O2 Delivery O2 Flow Rate FiO2 09/24/16 09:32 45 09/24/16 09:21 96 135/55 99 09/24/16 08:15 37.2 26 Mechanical Ventilator Intake and Output 09/23/16 09/23/16 09/24/16 Cumulative From/Thru 15:00 23:00 07:00 09/21/16 19:30 - 09/23/16 18:34 Intake Total 3089 ml 85578 ml Output Total 400 ml 2450 ml Balance 2689 ml 51927 ml Intake IV Total 3089 ml 08339 ml Tube Irrigant 0 ml Output Urine Total 300 ml 2190 ml Gastric Drainage Total 100 ml 260 ml # Bowel Movements 0 1 Exam WDWN obese man orally intubated on vent Neuro No response to nox stim Lungs CTA anteriorly, bronchial BS at both bases, NO wheezes CV RRR, no m/g/r Abd Soft, distended, + BTs, no HSM, bruits Ext 2+ hand edema, 1+ BLE edema, warm Skin No new lesions, Lt shoulder lesions crusting and dry. Isolated red papules on trunk resolving without vesiculation. Lab and Diagnostics Result Diagram: 09/24/16 0530 09/24/16 0530 Microbiology CSF positive for VZV MRSA negative Buttock culture positive for staphylococcus aureus Blood cultures 2 out of 4 positive for gram positive cocci Sputum positive for staphylococcus aureus X-Rays, CTs and MRIs X-RAY CHEST ONE VIEW, PORTABLE IMPRESSION: 1. Support lines and tubes as above. 2. Bilateral pleural effusions, right greater than left. 3. Bilateral lower lung consolidation, increasing involving the right lung base and similar involving the left. Dictated by: Francisco Javier BASSETT Interpreted: Merry Robison MD on 09/23/2016 at 9:45 Transcribed by: JIM on 09/23/2016 at 9:45 Approved by: Merry Robison MD, PhD on 09/23/2016 at 16:56 X-RAY CHEST ONE VIEW, PORTABLE IMPRESSION: 1. Support lines and tubes as above. 2. Abnormal opacity within the right lung and the lung bases consistent with pulmonary edema and/or diffuse bilateral inflammatory process. Recommend clinical correlation and followup. Dictated by: Francisco Javier BASSETT Interpreted: Jammie Drake MD on 09/22/2016 at 9:13 12-lead ECG Normal sinus rhythm at 116 bpm, left axis deviation present, QTC 478, mild widening of QRS complex (104 ms) Assessment & Plan PULMONARY CONSULT NOTE Hospital Day 3, Vent Day 3 1. Hypoxemic respiratory failure. Shock, sepsis, pneumonia. Suspect the major infectious process here is the staph given the amount of hemorrhagic secretions he has on admission. Fortunately, his secretions have become simply purulent and his O2 requirement has declined. Hope to begin PEEP wean later today if he is stable on FiO2 < 0.5 2. Sepsis. S. aureus PNA, bacteremia and disseminated zoster. On acyclovir, ceftaroline per ID. Might consider IVIG replacement, certainly as an outpatient. 3. Acute kidney injury. Non oliguric, No indication for acute HD. All current medications have been dose adjusted for his decreased renal function. 4. 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 As his hemodynamics and gas exchange improve, will attempt to examine off sedation. . 5. CLL. He is tyrosine kinase inhibitor is currently held. 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 REC Abx per ID Wean O2 and pressors as tolerates Begin PEEP wean once FiO2 < 0.5 Hold on enteral feeds for now Neuro exam off sedation once more stable Serial labs ICU prophy 40 minutes critical care time exclusive of procedures and shared time. GI Prophylaxis: H2 germaine VTE Prophylaxis: Sub-Q Heparin (Unfractionated) VTE Mechanical Devices: Intermittant Pneumatic CD Resuscitation Status: CPR: Attempt Resuscitation Duc Gerardo MD Sep 24, 2016 10:36
--- NOTE | 2016-09-24 11:47 | PCM.PNMED ---
Subjective Date of Service Sep 24, 2016 Amy Villegas is a 76-year-old male with CLL currently on chemotherapy with past medical history significant for likely COPD, recent visit to [facility] in [place], and ongoing hypertension directly transferred to [facility] from [facility] due to acute septic shock secondary to presumed aspiration pneumonia. Hospital day 4. Overnight: Overnight norepinephrine was unable to be titrated. Patient agitated and tachycardic with turns and care but no other acute events. Today: Patient remains intubated and sedated. Norepinephrine at 0.25 maintaining MAPs > 60. Fentanyl and versed gtt for sedation. ROS is not obtainable. Exam Vital Signs Vital Sign - Last Date Time Temp Pulse Resp B/P Pulse Ox O2 Delivery O2 Flow Rate FiO2 09/24/16 05:25 101 105/55 99 55 09/24/16 04:30 37.8 26 Mechanical Ventilator Intake and Output 09/23/16 09/23/16 09/24/16 Cumulative From/Thru 15:00 23:00 07:00 09/21/16 19:30 - 09/23/16 18:34 Intake Total 3089 ml 65578 ml Output Total 400 ml 2450 ml Balance 2689 ml 43454 ml Intake IV Total 3089 ml 13602 ml Tube Irrigant 0 ml Output Urine Total 300 ml 2190 ml Gastric Drainage Total 100 ml 260 ml # Bowel Movements 0 1 Exam Gen: Intubated and sedated, anasarca, two point restraints in the CCU. HEENT: PERRLA, corneal edema, large neck, R IJ in place. Cardio: Regular rate and rhythm, no murmurs noted. Respiratory: Faint crackles in bilateral bases. Mechanically ventilated. Abdomen: Soft, nontender, nondistended, normal bowel sounds. : Prado in place. Scrotal edema. Skin: Shingles on the left shoulder anteriorly and superiorly, some healing, other blisters still open. Extremities: Lower extremity edema and anasarca. Neurologic: Patient sedated. Psych: Patient sedated. Lab and Diagnostics Result Diagram: 09/24/1652909/24/16529 Microbiology CSF positive for VZV MRSA negative Buttock culture positive for staphylococcus aureus Blood cultures 2 out of 4 positive for gram positive cocci Sputum positive for staphylococcus aureus X-Rays, CTs and MRIs X-RAY CHEST ONE VIEW, PORTABLE IMPRESSION: 1. Support lines and tubes as above. 2. Bilateral pleural effusions, right greater than left. 3. Bilateral lower lung consolidation, increasing involving the right lung base and similar involving the left. Dictated by: Francisco Javier BASSETT Interpreted: Merry Robison MD on 09/23/2016 at 9:45 Transcribed by: JIM on 09/23/2016 at 9:45 Approved by: Merry Robison MD, PhD on 09/23/2016 at 16:56 X-RAY CHEST ONE VIEW, PORTABLE IMPRESSION: 1. Support lines and tubes as above. 2. Abnormal opacity within the right lung and the lung bases consistent with pulmonary edema and/or diffuse bilateral inflammatory process. Recommend clinical correlation and followup. Dictated by: Francisco Javier BASSETT Interpreted: Jammie Drake MD on 09/22/2016 at 9:13 12-lead ECG Normal sinus rhythm at 116 bpm, left axis deviation present, QTC 478, mild widening of QRS complex (104 ms) Additional Diagnostics DateTimeAnalyzed 05:29:00 -_ pH ____7.319 - pCO2 ___33.5__ -mmHg pO2 ___43.6__ -mmHg HCO3- ___16.7__ -mmol/L Assessment & Plan Magdaleno Villegas is a 76-year-old male with CLL currently on chemotherapy with past medical history significant for likely COPD, recent visit to [facility] in [place], and ongoing hypertension directly transferred to [facility] from [facility] due to acute septic shock secondary to presumed aspiration pneumonia. Hospital day 4. 1. Acute hypoxic respiratory failure, present on admission, active. -Secondary to #3. -Patient presented with severe hypoxia and was requiring 100% FiO2, 12 of PEEP, respiratory rate of 35, and tidal volumes were initially 600 mL but was quickly taken down to 470 mL. -Chest x-ray reveals right lower lobe consolidation and left pleural effusion. -Patient also has suspected underlying COPD which will complicate his pulmonary course. -FiO2 decreased to 55%. ICU managing. -Ventilator management per ICU team, appreciate the expertise 2. Severe sepsis with shock, present on admission, active. -Etiology likely due to aspiration pneumonia versus decubitus ulcer on his buttocks or disseminated shingles. There is overall concern about the severity of illness of this patient as he is immunocompromised, on current chemotherapy for CLL. [place] [facility]ensive and unresponsive to fluids and was started on three pressors and transferred to [facility]. -On admission here patient tachycardic, pro-calcitonin 21.82, lactic acid of 4.8 (lactic acid at [facility] was 1.4). -Titrated off phenylephrine and vasopressin. Continues on norepinephrine at 0.25. -Normal saline at 125 ml/hr. -Blood cultures 2 out of 4 positive for gram positive cocci. -Lumbar puncture completed results in #8. -MRSA screen negative. Viral PCR negative. Cryptococcus antigen negative. Legionella and strep pneumonia antigen negative. -Dr. Ritter consulted, appreciate the expertise. 3. Suspected aspiration pneumonia, present on admission, active. -Urine pneumococcal and legionella antigen negative. -Antibiotics: Meropenem and ceftaroline. Vancomycin discontinued 09/22. 4. Lactic acidosis, present on admission, active. -Etiology is likely infectious but patient's CLL likely a contributing factor. -Lactic acid 4.8 on admission. Trending down. -Fluids as above. -Will repeat in the morning. 5. Acute kidney injury, present on admission, active. -Patient presented to [facility] with a creatinine of 0.8, however over the subsequent days prior to his transfer here he was having a slow increase in his creatinine up to 1.6 and after pressure support his creatinine on arrival here was 2.21. -This acute kidney injury is likely due to hypoperfusion/prerenal secondary to dehydration and excessive pressure support with 2 peripheral vasoconstrictors and Levophed. Likely has a degree of ATN. -Fluids at 125 ml/hr. -Continue to monitor I and O and daily BMP -Nephrology consulted. Appreciate time and expertise. 6. Chronic lymphocytic leukemia, present on admission, currently undergoing chemotherapy. -No records available thus far but patient appears to be on current chemotherapy per family. 7. Elevated liver enzymes, present on admission, improving. -Etiology likely multifactorial including disseminated zoster and shock liver. -Liver enzymes trending down. -Continue treatment as for #2 and #8. 8. Disseminated zoster, present on admission, active. -Evidence of multiple lesions in multiple dermatomes -Patient has encephalitis, hepatitis, and pneumonitis secondary to disseminated zoster -Continue on IV acyclovir. -Lumbar puncture with high opening pressure. CSF clear, WBC 19, RBC 2, Mononuclear WBCs 100, Polynuclear WBCs 0, Glucose 75, Protein 58. -Dr. Ritter consulted, appreciate the expertise. 9. Acute encephalopathy, present on admission, active. -Patient has a recent history of acute confusion with hospital admission and resolution of confusion during those stays. 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 -It is of note that he is also had recent shingles infection that began around the same time as confusion. -At [facility] MRI scan presumably showed PRES syndrome. Records are requested. -Sedation titrated down but continues on Propofol and fentanyl. -Serum cryptococcal antigen negative. -CT head showed no acute intracranial process. -Lumbar puncture with high opening pressure. CSF clear, WBC 19, RBC 2, Mononuclear WBCs 100, Polynuclear WBCs 0, Glucose 75, Protein 58. 10. Staphylococcus bacteremia, present on admission active. - Blood cultures 2 out of 4 positive. - Repeat blood cultures drawn and results pending. - Antibiotics as above. 10 Decubitus ulcer, present on admission -Wound care consulted. Disposition: Patient remains critically ill and in the CCU. GI Prophylaxis: H2 germaine VTE Prophylaxis: Sub-Q Heparin (Unfractionated) VTE Mechanical Devices: Intermittant Pneumatic CD Resuscitation Status: CPR: Attempt Resuscitation Time spent The patient was seen and examined together with Resident/House-staff on 09/24/16 and I agree with the history, exam and plan as outlined in the note above. MATTHEW LAMA DO Sep 24, 2016 06:56 Neto Meneses Sep 25, 2016 17:12
[2016-09-24] MEDS: Norepineph 8,000 mCg/250 mL NS 8,000 MCG in IV Premix 1 EACH IV PRN ×2 (12:10→17:52)
--- NOTE | 2016-09-24 15:14 | DRSVH ---
PROCEDURE: X-RAY CHEST ONE VIEW, PORTABLE ([id number]) INDICATIONS: INTUBATED. TECHNIQUE: One view of the chest was acquired. COMPARISON: [facility], CR, XR CHEST 1VW (PORTABLE), 09/23/2016, 5:19. FINDINGS: Surgical changes and devices: ETT tip projected 6.3 cm above the eh. Stable position of right I J, CVL and left PICC. Lungs and pleura: Interval increase in aeration within the right lung and decrease in airspace opaci ty within the right lung base which has not resolved. Consolidation within the left lung base unchan ged. Small effusions. Mediastinum: Mediastinal contours appear normal. Heart size is normal. Bones and chest wall: No suspicious bony lesions. Overlying soft tissues appear unremarkable. IMPRESSION: 1. Stable support lines and tubes. 2. Increase in aeration within the right lung with decrease airspace opacity within the right lung ba se which has not resolved. 3. Persistent consolidation within the left lung base unchanged. 4. Small pleural effusions redemonstrated. Dictated by: Francisco Javier Antonio RRA Interpreted: Merry Robison MD on 09/24/2016 at 14:56 Transcribed by: MARQUITA on 09/24/2016 at 18:13 Approved by: Merry Robison MD, PhD on 09/24/2016 at 16:34
[2016-09-24] MEDS ORDERED: Amiodarone 150 mg/100 mL D5W 150 MG in IV Premix 1 EACH IV ONE (15:55)
--- NOTE | 2016-09-24 15:57 | NUR ---
Social Work: Attempted Assessment D: Per EMR review, pt is a 76 year old male admitted for Sepsis. Pt is [employer]. PCP Is not listed. NOK Is pt's daughter, Nayeli Villegas ([phone]). Advanced directives not on file. Readmit score is low, 09/13. Pt discussed in am rounds. Pt remains vented and sedated. COAGULATING DRYING SUPERVISOR periodically checked for family at bedside with no success. t/c to pt's daughter, Nayeli Villegas, a young family member answered the phone and took a message requesting return phone call to complete Initial Assessment. She states they will be coming to the hospital tonight but will call before arrival. COAGULATING DRYING SUPERVISOR informed bedside RN and requested contact when family arrives. A: Pt resides at [facility] and is on the Independent side P: Evolving; COAGULATING DRYING SUPERVISOR to continue to attempt to complete assessment with pt's family as pt remains intubated. OMAYRA Aguirre
[2016-09-24] MEDS ORDERED: Amiodarone 360 mg/200 mL D5W Premix IV ONE ×2 (16:15→23:59)
[2016-09-24] MEDS ORDERED: IV Premix 1 EACH IV ONE ×2 (16:15→23:59)
--- NOTE | 2016-09-24 16:42 | CONS ---
[address] [address] CONSULTATION REPORT PATIENT: BRITTNEY CASILLAS : 1940 MR#: [id number] ADMIT: 09/21/2016 JOB ID: [id number] DATE OF SERVICE: 09/24/2016 RENAL CONSULTATION: HISTORY: The patient is a rather unfortunate 76-year-old white male, who was admitted to [facility] for disseminated zoster, septic shock and MRSA bacteremia. He has developed acute tubular necrosis and renal consultation is being sought for further evaluation of his acute kidney injury. The patient is currently sedated and on a ventilator and the majority of the history has been obtained from the patient's family. He has a longstanding history of CLL and has been on chemotherapy since the . The family is unaware of any history of any prior renal problems and denies any history of diabetes. He does have a history of COPD and hypertension. In addition to this, he also has a history of GERD for which he has taken proton pump inhibitors in the past. On admission, the patient was significantly hypotensive and was given aggressive volume resuscitation along with pressors. He was intubated and on a ventilator and has had considerable amount of PEEP with his ventilator settings. At time of admission, his creatinine was 2.54 and there are no creatinines prior to this admission to compare this to. His oncologist is in [place]. He has had some urine output and this has tapered off somewhat. He is also profoundly hypoalbuminemic and currently has been receiving not only IV fluids and norepinephrine but has also received several doses of albumin. His blood pressure has improved. Otherwise there is no prior history that I know of any prostate problems, frequent use of nonsteroidal anti-inflammatories or renolithiasis. PAST MEDICAL HISTORY: Is remarkable for: 1. CLL which is being treated. 2. COPD. 3. Gastrointestinal reflux disease. 4. Hypertension with hypertensive heart disease and hypertensive nephrosclerosis. 5. He recently had been diagnosed with herpes zoster and had been on acyclovir prior to admission. PAST SURGICAL HISTORY: Is unremarkable. ALLERGIES: He is not allergic to any food or any medication. FAMILY HISTORY: Remarkable for hypertension in his father. REVIEW OF SYSTEMS: As detailed above. Otherwise is unobtainable. MEDICATIONS AT TIME MY EVALUATION: Include amiodarone, ceftaroline, famotidine, chlorhexidine, acyclovir, meropenem, Zofran, norepinephrine, fentanyl, midazolam. PHYSICAL EXAMINATION: Revealed an obese, ill-appearing 76-year-old white male who was sedated and on a ventilator. His pupils were fixed and dilated with some periorbital edema noted. His sclerae were pale. Neck is supple without adenopathy, thyromegaly or jugular venous distention. Lungs showed diffuse rhonchi with scattered end-expiratory wheezes and scattered rales. Heart was regular and rhythmical with a soft systolic murmur. Abdomen is soft, without any tenderness, rebound, guarding or masses. His abdomen is considerably distended and there is no evidence of any free fluid wave. Extremities showed some generalized edema and he had a number of excoriation/old fascicular lesions on his left upper back and shoulder. LABORATORY EXAMINATION: This morning his white count is 2.2. Hemoglobin of 8.5, hematocrit 25.4. RDW is elevated at 16.3. Platelet count is slightly depressed at 126. He had 20% neutrophils, 70% lymphocytes and 1% metamyelocytes. Sodium was 141, potassium 4.6, chloride of 109, CO2 of 16, BUN and creatinine were 73 and 2.63. Albumin was 2.4. Calcium is low at 6.6, corrected brings it up to approximately 7.6. Random vancomycin level obtained on September 22 was 12.6. Urinalysis obtained on admission showed a specific gravity 1.025, pH was 5.5, urine protein was positive. There was large occult blood, 3-10 WBCs per high-power field and 0-5 RBCs per high-power field. Moderate epithelial cells. IMPRESSION: 1. Acute kidney injury/acute tubular necrosis secondary to Staph bacteremia and disseminated zoster. 2. Proteinuria, acute versus chronic. 3. Metabolic acidosis which is multifactorial. 4. Hypertension with hypertensive heart disease and hypertensive nephrosclerosis. 5. Hypocalcemia, in part factitious because of low albumin. RECOMMENDATION: 1. I would like to obtain a renal ultrasound. 2. I would like to get a serum protein electrophoresis along with a uric acid. 3. I agree with continuing his IV hydration and albumin and attempt to wean his pressors down. I would like to see his systolic blood pressure greater than 90-100. 4. I would like to discontinue or not restart any proton pump inhibitors as I feel they could aggravate his underlying renal dysfunction. Once again, I would like to thank you for allowing me to participate in the care of this most unfortunate patient. I will be following him closely with you.
[2016-09-24] MEDS: Amiodarone 360 mg/200 mL D5W 360 MG, Filter, Taxol 14256-28 1 EACH in IV Premix 1 EACH IV SCH (16:43)
--- NOTE | 2016-09-24 16:57 | NUR ---
Social Work: Initial Assessment D: Per EMR review, pt is a 76 year old male admitted sepsis. Pt is [facility] Medicare. PCP is Dr. Sears at the [facility]. NOK is Nayeli Villegas, dtr, . POLST completed but not on file- FLIGHT NURSE requested this from dtr who will provide copy tonight. Readmit score is low, 09/13. t/c to the pt's daughter to complete initial assessment. Sw role explained. See initial assessment. Pt resides at [facility]. Pt is I with ambulation but owns a walker and cane. Pt continues to drive however is in the end stages of macular degeneration and should not be operating a vehicle, per daughter. She states pt has never had any half-way or home health. Family has noticed pt has been more and more confused over the last month and believe pt will likely require more assistance at time of discharge. They have considered moving the pt to the assisted living side of [facility] however have concerns financially. A: Pt who is vented and sedated. P: FLIGHT NURSE to continue to follow pt's clinical course and assist with dcp as needs arise. OMAYRA Aguirre Addendum: 09/24/16 at 1738 by LOUIE PATTON Amended: Links added.
--- NOTE | 2016-09-24 17:39 | NUR ---
GREGORY verbally reviewed with pt's daughter
--- NOTE | 2016-09-24 18:17 | NUR ---
Increased heart rate/renal ultrasound Patient was in sinus rhythm 80-90s this morning and thought part of the afternoon. Able to titrate down Levophed drip from 0.25mcg/kg/min to 0.18 mcg/kg/min with the patient maintaining adequate BP. at around 1300 today patient converted to a-fib with the rate 140-145. At the time patient appeared to be more awake and agitated- MD was made aware. Initially rate decrease to 120s after patient received several 1-2ml boluses of both fentanyl and versed IV and both drips were increased. However within 30min heart rate increased again and this time patient sustained the rate of 140-145- consulted with MD patient received amiodarone IV bolus dose 150mg and was started on amiodarone drip at 1mg/min as per protocol. 30min after amiodarone bolus infused heart tae decreased to 125-130 ranges- MD set heart rate goal is to decrease to 120- consulted with MD no new orders were received. Renal ultrasound dish technician called this evening and asked if this was a good time to perform renal ultrasound- consulted with attending resident- test to be delayed till tomorrow or when heat rate better controlled- continue assessment.
[2016-09-25] VITALS (12 sets, daily range): BP systolic 90–138; BP diastolic 44–66; PULSE 81–108; RESP 22–27; O2SAT 87–100
[2016-09-25] MEDS: Chlorhexidine 0.12% 15 mL Oral Solution MT SCH ×6 (00:11→20:59)
[2016-09-25] MEDS: SODIUM CHLORIDE 0.9% IV SCH ×3 (00:12→23:57)
[2016-09-25] MEDS: ACYCLOVIR IV SCH ×3 (00:12→23:57)
[2016-09-25] MEDS: Heparin 5,000 Unit/mL Inj SUBQ SCH ×3 (00:12→16:30)
[2016-09-25] MEDS: Amiodarone 360 mg/200 mL D5W 360 MG, Filter, Taxol 14256-28 1 EACH in IV Premix 1 EACH IV SCH (00:13)
[2016-09-25] MEDS: Meropenem Inj 2,000 MG in 0.9% Sodium Chloride 100 ML IV SCH (00:27)
[2016-09-25] MEDS: fentaNYL 2,500 mCg/250 mL 2,500 MCG in IV Premix 1 EACH IV PRN ×2 (01:47→18:46)
[2016-09-25] MEDS: Norepineph 8,000 mCg/250 mL NS 8,000 MCG in IV Premix 1 EACH IV PRN ×4 (01:48→22:07)
[2016-09-25] MEDS: Midazolam 100 mg/100 mL Premix IV PRN (04:13)
[2016-09-25] MEDS: 0.9% Sodium Chloride 1,000 ML IV SCH ×4 (04:13→23:52)
[2016-09-25 04:20] LABS: Mean Corpuscular Hemoglobin 29.1 pg (27.0-35.0); Mean Corpuscular Volume 88.7 fL (81-100); Platelet Count 76 bil/L (150-400)
[2016-09-25 04:54] LABS: Magnesium 1.8 mg/dL (1.6-2.6); NEUTROPHILS % (AUTO) 20 % (40-74); Phosphorus 4.9 mg/dL (2.5-4.9); Unsaturated Iron Binding 86.6 ug/dL
[2016-09-25 04:55] LABS: BASOPHILS % (AUTO) 0 % (0-3); EOSINOPHILS % (AUTO) 5 % (0-5); MONOCYTES % (AUTO) 16 % (4-12)
--- NOTE | 2016-09-25 04:59 | ABG ---
DateTimeAnalyzed 04:53:00 -_ pH ____7.232 - 7.350 7.450 pCO2 ___39.3__ -mmHg 35.0 45.0 pO2 ___50.7__ -mmHg 69.0 116 HCO3- ___15.9__ -mmol/L ABE __-10.3__ -mmol/L tHb ____8.1__ -g/dL O2Hb ___81.4__ -% COHb ____1.1__ -% MetHb ____1.3__ -% sO2 ___83.4__ -% FIO2 ___21.0__ -% Pressure_Support ___22.0__ -cmH2O PEEP ___10.0__ -cmH2O Set_RR ___22.0__ -b/min Drawn By RN - Oxygen Device 2 PC - Date/Time Notified____ 04:58:00 -_ Oxygen Device 1 VENTILATOR - Notified By MD - Notified Whom RN A.ANGELA - B 739 -mmHg tO2 ____9.4__ -Vol% Jeevan test N/A -
--- NOTE | 2016-09-25 05:44 | NUR ---
Hypotension/Labs/Febrile Levo gtt @ 0.16 mcg/kg/min, BP labile, map>60, slowly tapered down, SBP dropped in the high 80's, map 59-62, increased gtt, cvp 17-19, NS @ 125 cc/hr;fentanyl and versed gtt sedation, RASS -3, pt briefly desats to low 80's with turns/repositioning; hearn still with low uo. AM labs: ca 5.7, Hgb 7.2, notified hospitalist with no new order. HR 80's aflutter, intermittent HR 115-120's rapid afib/flutter, on amio gtt. Febrile tmax 38.5C, given tylenol 650mg, applied cooling measures, last temp down to 37.1C
[2016-09-25] MEDS: Senna Leaf Extract 528 mg/15 mL Syrup PO SCH ×2 (08:30→21:47)
--- NOTE | 2016-09-25 09:02 | PROG NOTE ---
[address] [address] PROGRESS NOTE PATIENT: BRITTNEY CASILLAS : 1940 MR#: [id number] ADMIT: 09/21/2016 JOB ID: [id number] DATE: 09/25/2016 INFECTIOUS DISEASE FOLLOW UP NOTE: REASON FOR FOLLOW UP: Disseminated zoster with Staph aureus septic shock. INTERVAL HISTORY: The patient remains intubated and sedated. No additional history is available from him. I did discuss this case this morning with the ICU team as well as family. PHYSICAL EXAMINATION: Reveals an intubated and sedated gentleman lying critically ill in the ICU. His temperature was 38.5 last nigh, but 37.1 this morning and afebrile. Pulse 89, respiratory rate ventilator dependent. Blood pressure 93/57. He is still on norepinephrine at 0.17 which is down from 0.25 yesterday, so some improvement there. Urine output continues to be sluggish. Examination of the eyes reveals no conjunctival or scleral abnormalities. Oral endotracheal tube and orogastric tube were present. The neck is benign appearing. The central lines are in usual position without evidence of infection. The patient's lungs are notable for some crackles at the bases. The cardiac tones are distant but regular today as yesterday he was very tachycardic. Today his pulse is down in the 70s and regular. His abdomen is slightly distended, but without apparent tenderness or mass. Scrotum is grossly swollen with Prado catheter present. Lower extremities are reasonably well perfused though a bit cool perhaps at the distal feet bilaterally but without evidence of overt cyanosis. LABORATORIES: Include white count 2000, platelet count 76,000 and dropping. Creatinine is 2.57 and stable. Liver function tests notable for ALT which is improving down to 82. Recall that his spinal fluid had 19 white cells, which is evidence of meningitis. Sputum, blood and decubitus ulcer growing MSSA Staph aureus and his follow up blood cultures are negative so far. Chest x-ray shows bilateral infiltrates basically from yesterday. Echocardiogram done on the had very poor views of the heart valves. IMPRESSION: This is a complex case of a gentleman with CLL who developed disseminated zoster with clear evidence of meningoencephalitis, hepatitis, probable pneumonitis and multi dermatomal cutaneous dissemination. Coupled with this, he has Staph aureus septic shock which proves to be an MSSA and this involves at least his lungs and blood stream as well as his decubitus ulcer. Whether anaerobes are involved in the decubitus ulcer is unknown but quite likely. The combination of cutaneous varicella zoster infections in Staph and/or strep sepsis is well described and is an ever present danger of the blistering infectious skin diseases. This patient has in essence disseminated infection with both VZV and MSSA and continues to be critically ill, though perhaps slightly improved over yesterday. We can now start to narrow his antibiotics. RECOMMENDATIONS: 1. I would continue with acyclovir intravenously for at least the next two or three days and then think about stopping as the skin lesions have essentially all now crusted and dried. 2. Will discontinue both ceftaroline and meropenem this morning as we can now start to narrow our focus. 3. The patient will be started on continuous infusion nafcillin 12 g per day. 4. Will add Flagyl for treatment of possible anaerobes in his decubitus ulcer. Note that the Flagyl will likely also provide benefits in terms of prophylaxis against C. difficile, though this is a bit of a controversial indication and it will at least be a side benefit of our therapy. 5. Will continue to closely observe this critically ill patient with you who was discussed in detail with the ICU team.
[2016-09-25] MEDS ORDERED: IV Premix 1 EACH IV ONE (09:37)
[2016-09-25] MEDS ORDERED: Amiodarone 360 mg/200 mL D5W Premix IV ONE (09:37)
--- NOTE | 2016-09-25 09:37 | PCM.PNMED ---
Subjective Date of Service Sep 25, 2016 Amy Villegas is a 76-year-old male with CLL currently on chemotherapy with past medical history significant for likely COPD, recent visit to [facility] in [place], and ongoing hypertension directly transferred to [facility] from [facility] due to acute septic shock secondary to presumed aspiration pneumonia. Hospital day 5. Overnight: Overnight norepinephrine was titrated down. Patient febrile with Tmax of 38.5 C. Today: Patient remains intubated and sedated. Norepinephrine at 0.16 maintaining MAPs > 60. Fentanyl and versed gtt for sedation. ROS is not obtainable. Exam Vital Signs Vital Sign - Last Date Time Temp Pulse Resp B/P Pulse Ox O2 Delivery O2 Flow Rate FiO2 09/25/16 04:23 37.1 89 22 93/56 92 Mechanical Ventilator 40 Intake and Output 09/24/16 09/24/16 09/25/16 Cumulative From/Thru 14:59 22:59 06:59 09/21/16 19:30 - 09/25/16 04:50 Intake Total 2143 ml 2490 ml 3114 ml 63366 ml Output Total 1050 ml 1125 ml 350 ml 4975 ml Balance 1093 ml 1365 ml 2764 ml 99420 ml Intake IV Total 2143 ml 2430 ml 3039 ml 31721 ml Tube Irrigant 60 ml 75 ml 135 ml Output Urine Total 850 ml 900 ml 200 ml 4140 ml Gastric Drainage Total 200 ml 225 ml 150 ml 835 ml # Bowel Movements 1 2 Exam Gen: Intubated and sedated, anasarca, two point restraints in the CCU. HEENT: PERRLA, corneal edema, large neck, R IJ in place. Cardio: Regular rate and rhythm, no murmurs noted. Respiratory: Faint crackles in bilateral bases. Mechanically ventilated. Abdomen: Soft, nontender, nondistended, normal bowel sounds. : Prado in place. Scrotal edema. Skin: Shingles on the left shoulder anteriorly and superiorly, some healing, other blisters still open. Extremities: Lower extremity edema and anasarca. Neurologic: Patient sedated. Psych: Patient sedated. Lab and Diagnostics Result Diagram: 09/25/1641409/25/16414 Microbiology CSF positive for VZV MRSA negative Buttock culture positive for staphylococcus aureus Blood cultures 2 out of 4 positive for gram positive cocci Sputum positive for staphylococcus aureus X-Rays, CTs and MRIs X-RAY CHEST ONE VIEW, PORTABLE IMPRESSION: 1. Support lines and tubes as above. 2. Bilateral pleural effusions, right greater than left. 3. Bilateral lower lung consolidation, increasing involving the right lung base and similar involving the left. Dictated by: Francisco Javier BASSETT Interpreted: Merry Robison MD on 09/23/2016 at 9:45 Transcribed by: JIM on 09/23/2016 at 9:45 Approved by: Merry Robison MD, PhD on 09/23/2016 at 16:56 X-RAY CHEST ONE VIEW, PORTABLE IMPRESSION: 1. Support lines and tubes as above. 2. Abnormal opacity within the right lung and the lung bases consistent with pulmonary edema and/or diffuse bilateral inflammatory process. Recommend clinical correlation and followup. Dictated by: Francisco Javier BASSETT Interpreted: Jammie Drake MD on 09/22/2016 at 9:13 12-lead ECG Normal sinus rhythm at 116 bpm, left axis deviation present, QTC 478, mild widening of QRS complex (104 ms) Assessment & Plan Magdaleno Villegas is a 76-year-old male with CLL currently on chemotherapy with past medical history significant for likely COPD, recent visit to [facility] in [place], and ongoing hypertension directly transferred to [facility] from [facility] due to acute septic shock secondary to presumed aspiration pneumonia. Hospital day 5. 1. Acute hypoxic respiratory failure, present on admission, active. -Secondary to #3. -Patient presented with severe hypoxia and was requiring 100% FiO2, 12 of PEEP, respiratory rate of 35, and tidal volumes were initially 600 mL but was quickly taken down to 470 mL. -Chest x-ray reveals right lower lobe consolidation and left pleural effusion. -Patient also has suspected underlying COPD which will complicate his pulmonary course. -FiO2 decreased to 40%. ICU team managing. -Ventilator management per ICU team, appreciate the expertise 2. Severe sepsis with shock, present on admission, active. -Etiology likely due to aspiration pneumonia versus decubitus ulcer on his buttocks or disseminated shingles. There is overall concern about the severity of illness of this patient as he is immunocompromised, on current chemotherapy for CLL. -At [facility] patient became hypotensive and unresponsive to fluids and was started on three pressors and transferred to [facility]. -On admission here patient tachycardic, pro-calcitonin 21.82, lactic acid of 4.8 (lactic acid at [facility] was 1.4). -Titrated off phenylephrine and vasopressin. Continues on norepinephrine titrated down to 0.16. -Normal saline at 125 ml/hr. -Blood cultures 2 out of 4 positive for gram positive cocci. -Lumbar puncture completed results in #8. -MRSA screen negative. Viral PCR negative. Cryptococcus antigen negative. Legionella and strep pneumonia antigen negative. -Dr. Ritter consulted, appreciate the expertise. 3. Suspected aspiration pneumonia, present on admission, active. -Urine pneumococcal and legionella antigen negative. -Antibiotics: Meropenem and ceftaroline discontinued 09/25. Vancomycin discontinued 09/22. 4. Lactic acidosis, present on admission, active. -Etiology is likely infectious but patient's CLL likely a contributing factor. -Lactic acid 4.8 on admission. Trending down. -Fluids as above. 5. Acute kidney injury, present on admission, active. -Patient presented to [facility] with a creatinine of 0.8, however over the subsequent days prior to his transfer here he was having a slow increase in his creatinine up to 1.6 and after pressure support his creatinine on arrival here was 2.21. -This acute kidney injury is likely due to hypoperfusion/prerenal secondary to dehydration and excessive pressure support with 2 peripheral vasoconstrictors and Levophed. Likely has a degree of ATN. -Fluids at 125 ml/hr. -Continue to monitor I and O and daily BMP -Renal ultrasound pending. -Nephrology consulted. Appreciate time and expertise. 6. Chronic lymphocytic leukemia, present on admission, currently undergoing chemotherapy. -No records available thus far but patient appears to be on current chemotherapy per family. -Blood counts slightly decreased. Possibly dilutional but will ask Heme/Onc to weigh in. -Heme/Onc consulted. Appreciate time and expertise. 7. Elevated liver enzymes, present on admission, improving. -Etiology likely multifactorial including disseminated zoster and shock liver. -Liver enzymes trending down. -Continue treatment as for #2 and #8. 8. Disseminated zoster, present on admission, active. -Evidence of multiple lesions in multiple dermatomes -Patient has encephalitis, hepatitis, and pneumonitis secondary to disseminated zoster -Continue on IV acyclovir. -Lumbar puncture with high opening pressure. CSF clear, WBC 19, RBC 2, Mononuclear WBCs 100, Polynuclear WBCs 0, Glucose 75, Protein 58. -Dr. Ritter consulted, appreciate the expertise. 9. Acute encephalopathy, present on admission, active. -Patient has a recent history of acute confusion with hospital admission and resolution of confusion during those stays. 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 -It is of note that he is also had recent shingles infection that began around the same time as confusion. -At [facility] MRI scan presumably showed PRES syndrome. Records are requested. -Sedation titrated down but continues on Propofol and fentanyl. -Serum cryptococcal antigen negative. -CT head showed no acute intracranial process. -Lumbar puncture with high opening pressure. CSF clear, WBC 19, RBC 2, Mononuclear WBCs 100, Polynuclear WBCs 0, Glucose 75, Protein 58. 10. Staphylococcus bacteremia, present on admission active. - Blood cultures 2 out of 4 positive. - Repeat blood cultures drawn and results pending. - Antibiotics switched to nafcillin continuos infusion. - Dr. Ritter consulted, appreciate time and expertise. 10 Decubitus ulcer, present on admission -Wound care consulted. Disposition: Patient remains critically ill and in the CCU. GI Prophylaxis: H2 germaine VTE Prophylaxis: Sub-Q Heparin (Unfractionated) VTE Mechanical Devices: Intermittant Pneumatic CD Resuscitation Status: CPR: Attempt Resuscitation Attending Statement The patient was seen and examined together with Resident/House-staff on 09/25/16 and I agree with the history, exam and plan as outlined in the note above. MATTHEW LAMA DO Sep 25, 2016 07:49 Neto Meneses Sep 25, 2016 17:31
[2016-09-25] MEDS: metroNIDAZOLE Inj 1,000 MG in IV Premix 1 EACH IV SCH ×2 (10:04→20:59)
[2016-09-25] MEDS: Nafcillin Inj 12,000 MG in Dextrose 5% 1,000 ML IV SCH (10:04)
--- NOTE | 2016-09-25 10:05 | DRSVH ---
PROCEDURE: X-RAY CHEST ONE VIEW, PORTABLE ([id number]) INDICATIONS: intubated TECHNIQUE: One view of the chest was acquired. COMPARISON: [facility], CR, XR CHEST 1VW (PORTABLE), 09/24/2016, 5:23. FINDINGS: Surgical changes and devices: Stable positioning of the ETT, nasogastric tube, right IJ CVL and left PICC Lungs and pleura: Small layering pleural effusions redemonstrated and bibasilar airspace opacities. No pneumothorax. Mediastinum: Mediastinal contours appear normal. Heart size is enlarged. Bones and chest wall: No suspicious bony lesions. Overlying soft tissues appear unremarkable. IMPRESSION: 1. Stable support lines and tubes. 2. Layering pleural effusions and basilar consolidation consistent with compressive atelectasis, pneu monia or patchy pulmonary edema. Correlate clinically. Dictated by: Francisco Javier Antonio [facility] Interpreted: Jammie Drake MD on 09/25/2016 at 10:04 Transcribed by: MANI on 09/25/2016 at 10:04 Approved by: Jammie Drake M.D. on 09/25/2016 at 15:11
--- NOTE | 2016-09-25 12:01 | PATH ---
SURGICAL PATHOLOGY Attending Physician:Biju Landry ([facility]), CASE STATUS: Signed Out PATIENT NAME: Magdaleno Villegas PID: [id number] : 1940 CASE NUMBER: [id number] DATE COLLECTED:09/23/2016 00:00 SPECIMEN: Cerebrospinal Fluid CLINICAL HISTORY: Cerebrospinal Fluid ICD-10 code not given FINAL DIAGNOSIS: CSF FLUID CYTOLOGY: INCREASED MONONUCLEAR CELLS WITH REACTIVE CHANGES, SEE COMMENT. ICD10 CODE R83.9 NOTE: The cytology preparation shows many mononuclear cells, including typical small lymphocytes, monocytes, and a few reactive lymphocytes and neutrophils. The overall pattern of the cytology findings is that of a reactive process. The clinical history of CLL is noted. A low level of involvement by CLL cannot be completely excluded on a morphologic basis in this type of cytology preparation. Flow cytometry would be a better test to exclude CLL if that is clinically important. This case was reviewed by Dr. Adriano Denton, who concurs with the interpretation. GROSS DESCRIPTION: Received fresh on 09/24/2016 is approximately 1 cc of clear colorless fluid. Prepared is one Cytospin slide. Vo MICRO DESCRIPTION: One Papanicolaou-stained Cytospin slide shows many mononuclear cells with typical small lymphocytes, monocytes, and a few reactive lymphocytes and neutrophils. No cytologically malignant cells identified. ICD-9 CODES: CPT CODES: 1: 50615 Electronically Signed Out Ana Scott MD [facility] Pathology [facility] [address], [place] [address] Technical component performed at [facility], [address] [place] [address] Ave[address], [place], [address]
[2016-09-25] MEDS: Famotidine Inj 20 MG in IV Premix 1 EACH IV SCH (12:33)
--- NOTE | 2016-09-25 14:03 | PCM.PNMED ---
Subjective Date of Service Sep 25, 2016 Subjective Patient's condition continues to improve he still remains ventilator dependent and is on pressors is a requirement for these symptoms decreased and his urine output has significantly increased. BUN and creatinine today are 76 and 2.57, his hemoglobin is 7.2 and his albumin is 1.8. His insurance saturation is 11%. His uric acid level was elevated at 7.7. Exam Vital Signs Vital Sign - Last Date Time Temp Pulse Resp B/P Pulse Ox O2 Delivery O2 Flow Rate FiO2 09/25/16 11:37 94 103/58 91 55 09/25/16 08:00 Ventilator 09/25/16 08:00 37.1 22 Intake and Output 09/24/16 09/24/16 09/25/16 Cumulative From/Thru 15:00 23:00 07:00 09/21/16 19:30 - 09/25/16 04:50 Intake Total 2143 ml 2490 ml 3114 ml 49774 ml Output Total 1050 ml 1125 ml 350 ml 4975 ml Balance 1093 ml 1365 ml 2764 ml 02247 ml Intake IV Total 2143 ml 2430 ml 3039 ml 77359 ml Tube Irrigant 60 ml 75 ml 135 ml Output Urine Total 850 ml 900 ml 200 ml 4140 ml Gastric Drainage Total 200 ml 225 ml 150 ml 835 ml # Bowel Movements 1 2 Exam Patient remains sedated on a ventilator. There is periorbital and scleral edema along with pale sclera. Lungs showed scattered rhonchi and end expiratory wheezes. Heart is regular and rhythmical with a soft systolic murmur. Abdomen is tense with evidence of hepatomegaly. His bowel sounds remained quite diminished. Extremities show generalized mild to moderate pitting edema. Lab and Diagnostics Result Diagram: 09/25/16 0850 09/25/16 0415 Microbiology CSF positive for VZV MRSA negative Buttock culture positive for staphylococcus aureus Blood cultures 2 out of 4 positive for gram positive cocci Sputum positive for staphylococcus aureus X-Rays, CTs and MRIs X-RAY CHEST ONE VIEW, PORTABLE IMPRESSION: 1. Support lines and tubes as above. 2. Bilateral pleural effusions, right greater than left. 3. Bilateral lower lung consolidation, increasing involving the right lung base and similar involving the left. Dictated by: Francisco Javier Antonio RRSigifredo Interpreted: Merry Robison MD on 09/23/2016 at 9:45 Transcribed by: JIM on 09/23/2016 at 9:45 Approved by: Merry Robison MD, PhD on 09/23/2016 at 16:56 X-RAY CHEST ONE VIEW, PORTABLE IMPRESSION: 1. Support lines and tubes as above. 2. Abnormal opacity within the right lung and the lung bases consistent with pulmonary edema and/or diffuse bilateral inflammatory process. Recommend clinical correlation and followup. Dictated by: Francisco Javier Antonio RRA Interpreted: Jammie Drake MD on 09/22/2016 at 9:13 12-lead ECG Normal sinus rhythm at 116 bpm, left axis deviation present, QTC 478, mild widening of QRS complex (104 ms) Assessment & Plan - Dr. Ritter consulted, appreciate time and expertise. 10 Decubitus ulcer, present on admission Impression #1 acute kidney injury/acute tubular necrosis secondary to sepsis and hypotension. 2 metabolic acidosis #3 anemia which is multifactorial number for hypoalbuminemia secondary to sepsis #5 hyperuricemia Recommendations #1 over to start allopurinol 100 mg once a day via his NG tube. Recent data has shown that hyperuricemia can be an aggravating factor and acute kidney injury and I feels basically treated. I would also #2 also like to start albumin back on him apparently he is scheduled to see oncology this afternoon and I await their recommendations as far as blood supplementation. I would like to start IV furosemide along with albumin to help augment his urine output. GI Prophylaxis: H2 germaine VTE Prophylaxis: Sub-Q Heparin (Unfractionated) VTE Mechanical Devices: Intermittant Pneumatic CD Resuscitation Status: CPR: Attempt Resuscitation Tres Jefferson DO Sep 25, 2016 14:03
--- NOTE | 2016-09-25 14:20 | PCM.PNMED ---
Subjective Date of Service Sep 25, 2016 Subjective PULMONARY/CRITICAL CARE PROGRESS NOTE Overnight: Reports of labile BP and fever. HR 115-120s with flutter rhythm, amiodarone continued. Temp 38.5, APAP provided. No acute events. Today: HR decreased to 80s; no acute distress. Remains intubated ans sedated. Family present at bedside, all questions and concerns addressed. Discussed that this may be a prolonged course, but he is stable. Labs: Hb decreased to 7.2 from 11.8 at admission. Net I/O thus far + ; Cr 2.57 Vent: Pressure control FiO2 40 PEEP 10 Exam Vital Signs Vital Sign - Last Date Time Temp Pulse Resp B/P Pulse Ox O2 Delivery O2 Flow Rate FiO2 09/25/16 04:23 37.1 89 22 93/56 92 Mechanical Ventilator 40 Intake and Output 09/24/16 09/24/16 09/25/16 Cumulative From/Thru 15:00 23:00 07:00 09/21/16 19:30 - 09/25/16 04:50 Intake Total 2143 ml 2490 ml 3114 ml 88577 ml Output Total 1050 ml 1125 ml 350 ml 4975 ml Balance 1093 ml 1365 ml 2764 ml 10985 ml Intake IV Total 2143 ml 2430 ml 3039 ml 12143 ml Tube Irrigant 60 ml 75 ml 135 ml Output Urine Total 850 ml 900 ml 200 ml 4140 ml Gastric Drainage Total 200 ml 225 ml 150 ml 835 ml # Bowel Movements 1 2 Exam General: Intubated and sedated; no acute distress HENT: Sclera anicteric; ETT in place, mucus membranes dry; left corneal edema present Neck: Soft, obese, trachea midline Cardiac: Irregularly irregular rate and rhythm; no murmurs appreciated Respiratory: Adequate air flow all ruiz; faint crackles at bases bilaterally R > L; no wheeze appreciated Abdomen: Soft, nontender, nondistended; obese; mild pitting edema present Extremities: BLLE moderate pitting edema from ankles to abdomen; BLUE moderate pitting edema noted distal extremities to forearm; soft restraints BLUE in place : Prado in place; urine yellow; scrotal edema present Skin: Multiple scabbed circular lesions noted over lower abdomen and groin that appear to be resolving; no active bleeding or exudate noted. Additional vesicular and scabbed lesions noted diffusely over left shoulder anteriorly without active bleeding or exudate, continue to appear dry and healing Neuro: Unable to fully assess secondary to intubation and sedation Psych: Unable to assess at this time secondary to intubation and sedation Lab and Diagnostics Result Diagram: 09/25/1641409/25/16414 Microbiology CSF positive for VZV MRSA negative Buttock culture positive for staphylococcus aureus Blood cultures 2 out of 4 positive for gram positive cocci Sputum positive for staphylococcus aureus X-Rays, CTs and MRIs X-RAY CHEST ONE VIEW, PORTABLE IMPRESSION: 1. Support lines and tubes as above. 2. Bilateral pleural effusions, right greater than left. 3. Bilateral lower lung consolidation, increasing involving the right lung base and similar involving the left. Dictated by: Francisco Javier BASSETT Interpreted: Merry Robison MD on 09/23/2016 at 9:45 Transcribed by: JIM on 09/23/2016 at 9:45 Approved by: Merry Robison MD, PhD on 09/23/2016 at 16:56 X-RAY CHEST ONE VIEW, PORTABLE IMPRESSION: 1. Support lines and tubes as above. 2. Abnormal opacity within the right lung and the lung bases consistent with pulmonary edema and/or diffuse bilateral inflammatory process. Recommend clinical correlation and followup. Dictated by: Francisco Javier BASSETT Interpreted: Jammie Drake MD on 09/22/2016 at 9:13 12-lead ECG Normal sinus rhythm at 116 bpm, left axis deviation present, QTC 478, mild widening of QRS complex (104 ms) Additional Diagnostics DateTimeAnalyzed 05:29:00 -_ pH ____7.319 - pCO2 ___33.5__ -mmHg pO2 ___43.6__ -mmHg HCO3- ___16.7__ -mmol/L Assessment & Plan PULMONARY/CRITICAL CARE CONSULT NOTE - Hospital day 4 - Ventilator day 4 Mr. Villegas was emergently transferred from [place] with severe sepsis likely secondary to aspiration PNA. He required intubation and sedation, fluid resuscitation, use of pressor agents, and paralytics. He was stabilized in the CCU, with pressor weaning, and continued ventilatory support. Infectious disease has been consulted to evaluate the source of infection, including the possibility of disseminated VZV. Chart review reveals multiple recent hospitalizations at [facility] [place] and [facility] within recent days for reported AMS. Imaging was performed at these facilities, and requests have been placed to push images to our system. He currently remains stable in the CCU intubated and sedated receiving fluids, pressors, and antibiotics. Repeat CT 09/22 did not reveal any acute pathologies. Echo completed 09/22, was a difficult study, but LV was grossly unremarkable with function, and RV was mildly dilated, but unremarkable in function. CSF PCR confirmed the presence of zoster. S. aureus has been detected in sputum, blood, and buttock lesion, indicating a staph bacteremia. Infectious disease consulted and following. Nephrology was consulted to evaluate kidney function and fluid status. Recent decrease in Hb/ acute anemia may be indicative of dilution., repeat resulted as baseline. Assessments - Acute hypoxemic respiratory failure - Severe sepsis likely secondary to aspiration PNA, bacteremia, and disseminated zoster - Suspected aspiration PNA - Disseminated zoster with meningoencephalitis - DANY - Normocytic normochromic anemia, acute Plan: - Continue mechanical ventilation; plans to wean PEEP to 5 as tolerated as day progresses - Decrease sedation as tolerated as day progresses; continue to advise against propofol - Consider Zyprexa 10mg ODT q12h prn for agitation/restlessness - Insulin gtt on standby to maintain BG < 180 - Continue to wean pressors as tolerated - Continue amiodarone until 24h paulo; If patient converts back to Afib/flutter, restart gtt to protocol - Records request placed to [facility] and [facility], including imaging to be pushed; [facility] records sent, awaiting [facility] [place] records - ABGs in am - Upright CXR in am - Consider trickle feeds 09/26 - Abx/antivirals per ID - Albumin 25mg q8h x3 doses - DVT: Hep q8 - GI: H2B Thank you for this consult, we will happily follow along with you at this time. If you have any additional concerns or would like us to assist in any other way , please do not hesitate to ask. Total time: 60 minutes Pain Evaluation: Adequate Pain Control GI Prophylaxis: H2 germaine VTE Prophylaxis: Sub-Q Heparin (Unfractionated) VTE Mechanical Devices: Intermittant Pneumatic CD Resuscitation Status: CPR: Attempt Resuscitation Alfreda Allred DO Sep 25, 2016 07:13
--- NOTE | 2016-09-25 16:42 | DRSVH ---
PROCEDURE: US RENAL SONOGRAM INDICATIONS: michelle TECHNIQUE: Real-time scanning was performed of the kidneys and bladder, with image documentation. COMPARISON: None. FINDINGS: Kidneys: Kidneys are normal in size. Right kidney measures 12.2 cm long; left kidney measures 14.3 cm long. Right renal cortical thickness is 2.0 cm; left renal cortical thickness is 2.1 cm. Renal c ortical echotexture is normal. No hydronephrosis or nephrolithiasis. No suspicious solid mass lesio ns. Bladder: Prado catheter present. Miscellaneous: No free pelvic fluid. IMPRESSION: Limited exam demonstrating grossly normal appearance of the kidneys. Dictated by: Francisco Javier BASSETT Interpreted: Jammie Drake MD on 09/25/2016 at 16:41 Transcribed by: MANI on 09/25/2016 at 16:41 Approved by: Jammie Drake M.D. on 09/26/2016 at 16:21
[2016-09-25] MEDS ORDERED: Ipratropium 0.02% 0.5 mg/2.5 mL Inhalation Solution NEB ONE (16:55)
[2016-09-25] MEDS ORDERED: Albuterol-Ipratropium 3 mL Inhalation Solution NEB ONE (16:55)
[2016-09-25] MEDS ORDERED: Albuterol 2.5 mg/3 mL Inhalation Solution NEB ONE (16:56)
[2016-09-25] MEDS ORDERED: Albuterol-Ipratropium 3 mL Inhalation Solution ONE (16:56)
[2016-09-25] MEDS ORDERED: Albuterol 2.5 mg/3 mL Inhalation Solution NEB PRN (17:05)
[2016-09-25] MEDS: Furosemide 10 mg/mL 10 mL Inj IVPUSH SCH ×2 (17:25→21:48)
[2016-09-25] MEDS: Albumin 25% 25 GM in IV Premix 1 EACH IV SCH (17:26)
[2016-09-25] MEDS ORDERED: Albuterol-Ipratropium 3 mL Inhalation Solution NEB PRN (17:50)
--- NOTE | 2016-09-25 18:54 | DRSVH ---
PROCEDURE: X-RAY CHEST ONE VIEW, PORTABLE ([id number]) INDICATIONS: possible SQ emphysema TECHNIQUE: One view of the chest was acquired. COMPARISON: [facility], CR, XR CHEST 1VW (PORTABLE), 09/25/2016, 5:51. FINDINGS: Surgical changes and devices: Central venous catheter, endotracheal tube, NG tube, and PICC are uncha nged. There is a new thoracostomy tube, the tip of which is present at the right apex. Lungs and pleura: There are moderate bilateral pleural effusions and pulmonary edema. No pneumothorax . Mediastinum: Mediastinal contours appear normal. Heart size is normal. Bones and chest wall: No suspicious bony lesions. Overlying soft tissues appear unremarkable. IMPRESSION: Right thoracostomy tube. No pneumothorax or subcutaneous emphysema. Dictated by: Simona Johnson M.D. on 09/25/2016 at 18:52 Approved by: Simona Johnson M.D. on 09/25/2016 at 18:52
--- NOTE | 2016-09-25 19:14 | PCM.PROC ---
Procedure Note Date of Service: Sep 25, 2016 Pre Procedure Diagnosis: Acute refractory Hypoxemic respiratory failure on mechanical ventilation Post Procedure Diagnosis: Acute refractory Hypoxemic respiratory failure on mechanical ventilation secondary to massive pleural effusion Procedure: Rt chest tube thoracostomy Provider and Automobile Wrecker: Akin JACOME and Chalino TRISTAN Indication for Procedure: Please see dictated note Findings: Please see dictated note Procedural Analgesia: IVsedation analgesia Procedure Details: Please see dictated note Specimen: None Post Procedure Plan: Closed chest drainage Duc Gerardo MD Sep 25, 2016 19:14
[2016-09-25] MEDS: Filgrastim 480 mCg/1.6 mL Inj SUBQ SCH (21:47)
--- NOTE | 2016-09-25 22:09 | NUR ---
Hemodynamics/Ventilation.. Pt was able to wean down on Levophed and maintained an adequate B/P this afternoon. Had stable oxygenation until this afternoon was noted to have Spo2 drifting into the low 90's and high 80's. Dr Carson here to assess and pt noted to have absent breath sounds on R and dropping B/P. Family here and explained of need for emergent chest tube. Dr Carson placed the tube to R upper chest. Initially had large amts of serous sanguenous fluid out. Total output currently since insertion is 110 cc and no air leak noted. Oxygenation improved immediately and vent has been weaned back down from 100% to 80%. Prior to chest tube placement B/P required increase of norepi, but hemodynamics are improved and norepi is weaning without problem. Restraints have been discontinued as pt remains critically ill, sedated and not spontaneously moving on own.
[2016-09-26] VITALS (13 sets, daily range): BP systolic 100–132; BP diastolic 48–77; PULSE 86–142; RESP 18–26; O2SAT 95–100
[2016-09-26] MEDS: Heparin 5,000 Unit/mL Inj SUBQ SCH ×3 (00:30→16:11)
--- NOTE | 2016-09-26 01:28 | CONS ---
[address] [address] CONSULTATION REPORT PATIENT: BRITTNEY CASILLAS : 1940 MR#: [id number] ADMIT: 09/21/2016 JOB ID: [id number] MEDICAL ONCOLOGY CONSULTATION: DATE OF SERVICE: 09/25/2016 REQUESTING PHYSICIAN: Dr. Domínguez with the hospitalist team. 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 HISTORY OF PRESENT ILLNESS: The patient is a 76-year-old gentleman in the ICU and intubated with his son at bedside. He has been receiving his care for his CLL at [facility] in [place]. He is admitted for septic shock and has been found to have Staphylococcus aureus bacteremia as well as disseminated zoster. He has also associated acute renal insufficiency and cytopenia. I was able to obtain some records from his oncologist in [place], Dr. Shahram Pearce. In review of his records, he has a history of CLL for many years since 2006. He has been heavily treated in the past after initial observation. He has been exposed to chlorambucil initially between 2006 and 2010. Then, treated with Rituxan and bendamustine between 2010 and October 2011 achieving complete remission. He had then a second relapse in June 2015. 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 At the time of relapse in June 2015, he had significant splenomegaly with a size of 19 cm and also significant adenopathy to size of 7 cm. He has been started on oral B-cell receptor inhibitor, ibrutinib, at 420 mg daily and has been on this treatment through the entire year of 2016. He was last seen at the [facility] on June 25, 2016 in [place] and was supposed to come back for followup towards late September. At the June visit, his white count was 29,000, down from 190,000 at the time of relapse with 81% lymphocytes, hemoglobin was 14, platelets 193. He was admitted here on September 22, 2016, transferred from [facility], [place]. He lives in [place] now. He used to live in in the past and, therefore, he had his initial physicians all in the [place] area and has continued care there. PAST MEDICAL HISTORY: Hypertension, hyperlipidemia, acid reflux, cataracts. SOCIAL HISTORY: He is an ex-smoker. No reported history of alcoholism. CURRENT MEDICATIONS: Lasix, albumin, allopurinol, metronidazole, nafcillin, amiodarone, insulin, acyclovir. DIAGNOSTIC DATA: Chest x-ray shows right thoracostomy tube. Retroperitoneal ultrasound showed no evidence of urinary obstruction. PHYSICAL EXAMINATION: GENERAL: He is unresponsive, intubated. VITAL SIGNS: Blood pressure around 116/44. Currently afebrile. He did have a fever on September 24, 2015 at 38.5. SKIN: He has a drying zoster rash on his shoulders, particularly on the left-side dragging to the back. EXTREMITIES: He has bilateral pitting edema up to the knee. ABDOMEN: Soft. LABORATORIES: Show a white count of 2.0 with an absolute neutrophil count of 440. Differential shows 20% neutrophils, 2% bands, 57% lymphocytes, 15 mono's. Hemoglobin 7.2. Platelets 76, down from 157. Chemistry shows a creatinine of 2.6, BUN of 76, bicarb acidotic with 14. LFTs showed transaminitis with normal bilirubin. Albumin down to 1.8. ASSESSMENT AND PLAN: A 76-year-old gentleman who has been receiving his care for longstanding chronic lymphocytic leukemia since 2006 mostly in [place]. He is being followed there after his most recent second relapse in June 2015. I was able to obtain records from the Cancer Center there with review of the last notes from June 25, 2016 when he was last seen. 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 He has had a very high white count. For example, at the time of relapse in June 2015, his total white count was 278,000 with 90% lymphocytes. He used to live in and has had all his physician care in the [facility], but he is now in [place]. He was supposed to have a followup in the [place] [facility] in end of September. Unfortunately, he is severely ill with a septic shock with Staph bacteremia and disseminated zoster. He is pancytopenic associated with sepsis and is neutropenic with absolute neutrophil count of 440. I was able to speak with his son who was at bedside. His prognosis is rather unfavorable in regard to his chronic lymphocytic leukemia, and he still has peripheral lymphocytosis in the differential, although much improved compared to previous relapse. B-cell receptor inhibitors can be associated with increased risk of serious infections and the chronic lymphocytic leukemia itself is a risk factor for serious infections. His outcome remains guarded in regard to both the infectious problem as well as the prognosis of the chronic lymphocytic leukemia. This was discussed with his son. I am starting him on Neupogen to improve his neutrophil count at least to support his immune system in the setting of neutropenia. I wrote for 480 mcg subcu daily starting today for at least three days. It may continue beyond three days if his neutrophil count is below 1500.
[2016-09-26] MEDS: Midazolam 100 mg/100 mL Premix IV PRN (01:46)
[2016-09-26] MEDS: 0.9% Sodium Chloride 500 ML IV PRN (01:46)
--- NOTE | 2016-09-26 02:07 | NUR ---
VENT/SEDATION/GTTS .70 fio2 per vent, sats 99%, weaning done per rt, resp rate , sx sml amount of tannish sputum per ett, oral care done, hob up, ls- course bilaterally, decreased bases, right chest tube in place to 20cm wall suction, no air leak, dressing reinforced, linens changed due to large amount of serousang drainage on sheet from around ct site, isolation precautions taken, bed on CLRT, see assessment for skin assessment, scd's on, md aware of heparin sq held due to platelet count, generalized edema, arms weeping, good uop per f/c, cvp=16, bp stable with map >65 on levophed gtt at 0.2mcg/kg/min, ivf per orders, pt sedated on versed gtt at 4mg/hr, fentanyl gtt at 150mcg/hr, effective, abd round, rare bt's, ogt placement=wnl, ogt to lis, brown/greenish output, no bm, uap=12, left picc double lumen intact, right triple lumen ij intact, see ccu flow sheet, cont monitoring, plan:ventilator support, treatment for infection,
[2016-09-26 04:15] LABS: Mean Corpuscular Hemoglobin 28.7 pg (27.0-35.0); Mean Corpuscular Volume 86.2 fL (81-100); Platelet Count 90 bil/L (150-400)
[2016-09-26] MEDS: Chlorhexidine 0.12% 15 mL Oral Solution MT SCH ×6 (04:25→21:46)
[2016-09-26] MEDS: Norepineph 8,000 mCg/250 mL NS 8,000 MCG in IV Premix 1 EACH IV PRN ×3 (04:25→17:27)
[2016-09-26 04:33] LABS: BASOPHILS % (AUTO) 0 % (0-3); EOSINOPHILS % (AUTO) 3 % (0-5); MONOCYTES % (AUTO) 11 % (4-12); NEUTROPHILS % (AUTO) 34 % (40-74)
--- NOTE | 2016-09-26 04:49 | PROCED ---
[address] [address] PROCEDURE NOTE PATIENT: BRITTNEY CASILLAS : 1940 MR#: [id number] ADMIT: 09/21/2016 JOB ID: [id number] DATE OF SERVICE: 09/25/2016 PROCEDURE: Tube thoracostomy. PREOPERATIVE DIAGNOSIS(ES): Hypoxemic respiratory failure. POSTOPERATIVE DIAGNOSIS(ES): 1. Massive pleural effusion. 2. Hypoxemic respiratory failure in the setting of Staph bacteremia and disseminated varicella zoster. SURGEON: Duc Gerardo MD. STRAINER MILL OPERATOR: Alfreda Allred DO (RES). NARRATIVE SUMMARY: The patient on mechanical ventilation, developed sudden severe hypoxemia refractory to an FiO2 of 1.0. This occurred after the patient had excellent O2 saturations earlier in the day on an FiO2 of 0.4. Inspiratory pressures had risen and blood pressure began to fall. I was called to the patient's room. On quick exam, the patient had excellent air movement throughout the left chest and nearly absent breath sounds over the right chest with massive induration over the right chest wall much out of proportion to what was observed over the left chest wall. No crepitus was appreciated. The trachea appeared to be midline but the body habitus of the patient made quality exam very difficult. I ordered a stat chest x-ray to evaluate for pneumothorax as a cause for his hypoxemia. Thoracic ultrasound was not attempted given the patients body habitus and large amount of overlying soft tissue. While waiting for the x-ray he continued to deteriorate however with worsening hypoxemia and hypotension. Nursing staff had promptly brought a thoracostomy tray to the room and I performed tube thoracostomy on the right side without waiting for the chest x-ray given the patient's rapid and progressive deterioration. A 3 cm vertical incision was made in the anterior axillary line at the level of the 3rd rib. Blunt dissection was carried down through the fascia pectoralis edge and intercostals. Upon entering the pleural space there was a very large mccauley of serosanguineous fluid, which was slightly turbid but not foul smelling. There was no mccauley of air. I would estimate the volume of fluid at approximately 1-2 L. A #18 chest tube and curved clamp was directed through the parietal pleura, but the distal end was too small for the fitting on the closed drainage system. This tube was rapidly withdrawn and replaced with a 32-German tube, which was advanced into the right lung apex and sutured in place with a Omer Sandal suture. The skin was closed with interrupted 2-0 nylon and a dressing applied. The chest tube itself remained connected to a closed drainage system. The patient's O2 saturation which had fallen into the low 80% range, despite 100% oxygen, erin quickly to 99% after placement of the chest tube. Postprocedure chest x-ray reveals large bilateral pleural effusions with proper placement of the chest tube in the patient's right lung apex. SPECIMENS: None. POSTPROCEDURE CHEST X-RAY: Described above. CONDITION: Upon procedure remains critically ill in ICU with improving oxygen saturation and hemodynamics. MERYL
--- NOTE | 2016-09-26 05:12 | ABG ---
DateTimeAnalyzed 05:07:00 -_ pH ____7.300 - pCO2 ___31.3__ -mmHg pO2 ___44.8__ -mmHg HCO3- ___14.9__ -mmol/L ABE __-10.1__ -mmol/L tHb ____7.4__ -g/dL O2Hb ___75.9__ -% COHb ____1.4__ -% MetHb ____1.2__ -% sO2 ___77.9__ -% FIO2 ___21.0__ -% PEEP ___10.0__ -cmH2O Set_RR ___26.0__ -b/min Vt __603.0__ -L Drawn By RN - Date/Time Notified____ 05:12:00 -_ Spontaneous_RR ___26.0__ -b/min Oxygen Device 1 VENTILATOR - Notified By MD - Notified Whom RN K.HERLICKSON - B 739 -mmHg tO2 ____8.0__ -Vol% Jeevan test N/A -
[2016-09-26] MEDS: 0.9% Sodium Chloride 1,000 ML IV SCH ×2 (07:46→17:28)
[2016-09-26] MEDS: Nafcillin Inj 12,000 MG in Dextrose 5% 1,000 ML IV SCH (07:50)
[2016-09-26] MEDS: Famotidine Inj 20 MG in IV Premix 1 EACH IV SCH (07:51)
[2016-09-26] MEDS: metroNIDAZOLE Inj 1,000 MG in IV Premix 1 EACH IV SCH ×2 (07:53→21:42)
[2016-09-26] MEDS: Senna Leaf Extract 528 mg/15 mL Syrup PO SCH ×2 (08:28→21:58)
[2016-09-26] MEDS: Furosemide 10 mg/mL 10 mL Inj IVPUSH SCH ×2 (08:28→22:19)
[2016-09-26] MEDS: Albumin 25% 25 GM in IV Premix 1 EACH IV SCH ×2 (08:28)
--- NOTE | 2016-09-26 08:37 | PCM.PNMED ---
Subjective Date of Service Sep 26, 2016 Subjective Remains intubated sedated Required urgent chest tube placement yesterday evening for hypoxemia due to massive effusion. Unresponsive to loud voice, nox stim Remains NSR off Amio gtt No new critical events over noc Exam Vital Signs Vital Sign - Last Date Time Temp Pulse Resp B/P Pulse Ox O2 Delivery O2 Flow Rate FiO2 09/26/16 04:37 87 129/55 98 70 09/26/16 04:00 Ventilator 09/26/16 04:00 37.1 26 Intake and Output 09/25/16 09/25/16 09/26/16 Cumulative From/Thru 15:00 23:00 07:00 09/21/16 19:30 - 09/26/16 06:53 Intake Total 3994 ml 2591 ml 02126 ml Output Total 400 ml 2310 ml 7685 ml Balance 3594 ml 281 ml 26324 ml Intake IV Total 3994 ml 2591 ml 35611 ml Tube Irrigant 135 ml Output Urine Total 400 ml 1900 ml 6440 ml Gastric Drainage Total 200 ml 1035 ml Chest Tube Drainage Total 210 ml 210 ml # Bowel Movements 0 2 Exam Obese man orally intubated with anasarca Lungs crackles anteriorly, decreased/absent BS at bases, No wheezes CV Distant HTs, no m/g/r Abd Abd wall edema, No BTs, Ext 3+ Bilat UE and LE edema, warm, no cyanosis Marked Scrotal edema Skin Rt chest tube site with serous drainage, Rt. IJ without erythema or drainage Lab and Diagnostics Result Diagram: 09/26/16 0405 09/26/16 0405 Microbiology CSF positive for VZV MRSA negative Buttock culture positive for staphylococcus aureus Blood cultures 2 out of 4 positive for gram positive cocci Sputum positive for staphylococcus aureus X-Rays, CTs and MRIs X-RAY CHEST ONE VIEW, PORTABLE IMPRESSION: 1. Support lines and tubes as above. 2. Bilateral pleural effusions, right greater than left. 3. Bilateral lower lung consolidation, increasing involving the right lung base and similar involving the left. Dictated by: Francisco Javier Antonio RRA Interpreted: Merry Robison MD on 09/23/2016 at 9:45 Transcribed by: JIM on 09/23/2016 at 9:45 Approved by: Merry Robison MD, PhD on 09/23/2016 at 16:56 X-RAY CHEST ONE VIEW, PORTABLE IMPRESSION: 1. Support lines and tubes as above. 2. Abnormal opacity within the right lung and the lung bases consistent with pulmonary edema and/or diffuse bilateral inflammatory process. Recommend clinical correlation and followup. Dictated by: Francisco Javier BASSETT Interpreted: Jammie Drake MD on 09/22/2016 at 9:13 12-lead ECG Normal sinus rhythm at 116 bpm, left axis deviation present, QTC 478, mild widening of QRS complex (104 ms) Additional Diagnostics DateTimeAnalyzed 05:29:00 -_ pH ____7.319 - pCO2 ___33.5__ -mmHg pO2 ___43.6__ -mmHg HCO3- ___16.7__ -mmol/L Assessment & Plan PULMONARY/CRITICAL CARE CONSULT NOTE - Hospital day 5 - Ventilator day 5 Mr. Villegas was emergently transferred from [facility] with severe sepsis on triple pressors and acute respiratory failure on ventilation with an FiO2 of 1.0. He had been admitted there with AMS and obvious zoster eruption in multiple dermatomes in the setting of long-standing CLL. Earlier in the same week, he had been admitted briefly to [facility] with a similar presentation and had been discharged after 24 hours on acyclovir with a diagnosis of PRES based on an MRI. No LP had been done at either institution. Here he has remained in the CCU requiring pressors and continued ventilatory support. Blood, sputum, wound, and urine cultures have grown MSSA. 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 Paroxysmal A. fib with RVR occurred 09/24, converted to NSR on Amio gtt 09/25. Late 09/25 he developed refractory hypoxemia d/t massive Rt effusion requiring urgent Rt chest tube placement. Assessments - Acute hypoxemic respiratory failure MSSA PNA and dissemintated zoster - Severe sepsis likely secondary to aspiration PNA, MSSA bacteremia, and disseminated zoster - Disseminated zoster with meningoencephalitis - Paroxysmal A. fib, resolved - DANY, nonoliguric. May be approaching need for acute HD or at least UF for volume managment with anasarca and large bilat effusions - CLL x 20 years, recently on Ibrutinib currently held - Anasarca - Normocytic normochromic anemia, acute, Thrombocytopenia Plan: Increase PEEP to 16, wean FiO2 as tolerates Limit further volume expansion, ? can we DC the albumin Minimize IV fluids Consider Lasix gtt Abx per ID Wean pressors as tolerates Awakening trial - DVT: Hep q8 - GI: H2B Total time: 45 minutes critical care GI Prophylaxis: H2 germaine VTE Prophylaxis: Sub-Q Heparin (Unfractionated) VTE Mechanical Devices: Intermittant Pneumatic CD Resuscitation Status: CPR: Attempt Resuscitation Duc Gerardo MD Sep 26, 2016 08:37 Resuscitation Status: CPR: Attempt Resuscitation Duc Gerardo MD Sep 26, 2016 08:37
[2016-09-26] MEDS: fentaNYL 2,500 mCg/250 mL 2,500 MCG in IV Premix 1 EACH IV PRN (09:50)
--- NOTE | 2016-09-26 10:43 | NUR ---
NUTRITION FOLLOW-UP: ASSESS: 76 YO male admitted to CCU with acute hypoxic respiratory failure, severe sepsis, MSSA pneumonia and disseminated zoster with meningoencephalitis. Pt has been intubated / NPO for 5 D. He required chest tube placement yesterday for a massive effusion. Per pulmonology, he is approaching the need for dialysis or at least UF for volume management with anasarca and large bilateral effusions. He is significantly fluid overloaded, requiring lasix for diuresis. Code status: full. PMHX: CLL, HTN, hypercholesterolemia, GERD, cataracts, COPD. LABS: Reviewed. CO2 14, BUN 97, Cr 3.57, Glu 121, Lactic Acid 2.2, Ca 6.7, Total Bili 1.8, ALT 53, Alb 2.4. MEDS:Reviewed. Fentanyl, versed, norepinephrine, insulin, lasix. GI: BM x 1 (09/25). SKIN: Mario 10, Disseminated zoster, non-stageable pressure injury on his left ischium that is 5 cm L x 3 cm W and flush. WT:140.3 kg, BMI 47.0 kg, admit wt 116kg, IBW 70kg DIET: NPO EST. NEEDS: BMI, VENT (based of admit wt) Kcals: 2320-2550kcal/day (20-22kcal/kg) Pro: 105-120g/day (1.5-1.8g/kg IBW) Fluid: ~2900ml/day (25cc/kg) NUTRITION DIAGNOSIS: 1) Inadequate oral intake related to decreased ability to consume sufficient energy as evidenced by current vent / NPO status - PERSISTS. NUTRITION INTERVENTION: 1) Received orders during case management rounds to initiate trophic enteral feeding. Orders written as follows: Jevity 1.5 @ 10ml/hr x 24 hr. Once tolerated, advance by 10ml q 4 hrs until reach goal rate of 75ml/hr to provide 2475kcal and 105g pro (100% estimated needs). Fluid flush 40ml q 4 hrs. MONITOR / EVAL: Enteral feeding start / advance / tolerance, vent status, wt, labs, GI, POC, nutrition status. Will continue to monitor per high nutrition risk guidelines.
[2016-09-26] MEDS ORDERED: Acetaminophen IV 1,000 MG in IV Premix 1 EACH IV PRN (11:05)
--- NOTE | 2016-09-26 11:24 | PCM.PNMED ---
Subjective Date of Service Sep 26, 2016 Subjective Mr. Villegas continues to improve. He still remained ventilatory dependent on 65 % oxygen and 16 of PEEP yesterday he had 750 ML's of urine out and already today he has had 1900 mils of urine out. His blood pressure is still dependent on pressors however these are being weaned. We will ultrasound was unremarkable. His haptoglobin level was not depressed. This morning his hemoglobin was 7.5, sodium is 140, potassium 4.4, chloride of 108, bicarbonate is 14, BUN and creatinine are 97 and 3.57. His albumin is 2.4 with a lactic acid of 2.2. His liver functions remain elevated although they are improving. Exam Vital Signs Vital Sign - Last Date Time Temp Pulse Resp B/P Pulse Ox O2 Delivery O2 Flow Rate FiO2 09/26/16 10:58 90 112/50 95 65 09/26/16 08:19 Ventilator 09/26/16 08:19 37.9 23 Intake and Output 09/25/16 09/25/16 09/26/16 Cumulative From/Thru 15:00 23:00 07:00 09/21/16 19:30 - 09/26/16 06:53 Intake Total 3994 ml 2591 ml 42785 ml Output Total 400 ml 2310 ml 7685 ml Balance 3594 ml 281 ml 72948 ml Intake IV Total 3994 ml 2591 ml 22279 ml Tube Irrigant 135 ml Output Urine Total 400 ml 1900 ml 6440 ml Gastric Drainage Total 200 ml 1035 ml Chest Tube Drainage Total 210 ml 210 ml # Bowel Movements 0 2 Exam Patient remains sedated and on a ventilator. Lungs shows improved breath sounds following up his chest. He still has some rales and rhonchi noted. Soft systolic murmur. Abdomen is tense however gallstones remain absent. There is no tenderness or rebound guarding masses or hepatosplenomegaly. Extremities continue to demonstrate generalized edema in both upper and lower extremities. Lab and Diagnostics Result Diagram: 09/26/16 0405 09/26/16 0405 Microbiology CSF positive for VZV MRSA negative Buttock culture positive for staphylococcus aureus Blood cultures 2 out of 4 positive for gram positive cocci Sputum positive for staphylococcus aureus X-Rays, CTs and MRIs X-RAY CHEST ONE VIEW, PORTABLE IMPRESSION: 1. Support lines and tubes as above. 2. Bilateral pleural effusions, right greater than left. 3. Bilateral lower lung consolidation, increasing involving the right lung base and similar involving the left. Dictated by: Francisco Javier BASSETT Interpreted: Merry Robison MD on 09/23/2016 at 9:45 Transcribed by: JIM on 09/23/2016 at 9:45 Approved by: Merry Robison MD, PhD on 09/23/2016 at 16:56 X-RAY CHEST ONE VIEW, PORTABLE IMPRESSION: 1. Support lines and tubes as above. 2. Abnormal opacity within the right lung and the lung bases consistent with pulmonary edema and/or diffuse bilateral inflammatory process. Recommend clinical correlation and followup. Dictated by: Francisco Javier BASSETT Interpreted: Jammie Drake MD on 09/22/2016 at 9:13 12-lead ECG Normal sinus rhythm at 116 bpm, left axis deviation present, QTC 478, mild widening of QRS complex (104 ms) Additional Diagnostics DateTimeAnalyzed 05:29:00 -_ pH ____7.319 - pCO2 ___33.5__ -mmHg pO2 ___43.6__ -mmHg HCO3- ___16.7__ -mmol/L Assessment & Plan Impression #1 acute tubular necrosis nonoliguric renal failure #2 increased anion gap metabolic acidosis most likely secondary to lactic acidosis, ketoacidosis from starvation and probably Jarett acid. #3 anemia which is multifactorial Recommendations #1 I discussed the case with the critical care phd intern and I would like to continue him with several more doses of albumin, transfusion additional unit of blood, begin to try to cut back on the crystalloid and continue IV furosemide. GI Prophylaxis: H2 germaine VTE Prophylaxis: Sub-Q Heparin (Unfractionated) VTE Mechanical Devices: Intermittant Pneumatic CD Resuscitation Status: CPR: Attempt Resuscitation Tres Jefferson DO Sep 26, 2016 11:24
--- NOTE | 2016-09-26 12:33 | PCM.PNMED ---
Subjective Date of Service Sep 26, 2016 Amy Villegas is a 76-year-old male with CLL currently on chemotherapy with past medical history significant for likely COPD, recent visit to [facility] in [place], and ongoing hypertension directly transferred to [facility] from [facility] due to acute septic shock secondary to presumed aspiration pneumonia. Hospital day 6. Overnight: Yesterday thoracostomy completed due hypoxemia secondary to pleural effusion. No acute overnight events. Today: Patient remains intubated and sedated. Norepinephrine at 0.17 maintaining MAPs > 60. Fentanyl and versed gtt for sedation. ROS is not obtainable. Exam Vital Signs Vital Sign - Last Date Time Temp Pulse Resp B/P Pulse Ox O2 Delivery O2 Flow Rate FiO2 09/26/16 04:37 87 129/55 98 70 09/26/16 04:00 Ventilator 09/26/16 04:00 37.1 26 Intake and Output 09/25/16 09/25/16 09/26/16 Cumulative From/Thru 15:00 23:00 07:00 09/21/16 19:30 - 09/26/16 06:53 Intake Total 3994 ml 2591 ml 54217 ml Output Total 400 ml 2310 ml 7685 ml Balance 3594 ml 281 ml 85341 ml Intake IV Total 3994 ml 2591 ml 56082 ml Tube Irrigant 135 ml Output Urine Total 400 ml 1900 ml 6440 ml Gastric Drainage Total 200 ml 1035 ml Chest Tube Drainage Total 210 ml 210 ml # Bowel Movements 0 2 Exam Gen: Intubated and sedated, anasarca, two point restraints in the CCU. HEENT: PERRLA, corneal edema, large neck, R IJ in place. Cardio: Regular rate and rhythm, no murmurs noted. Respiratory: Faint crackles in bilateral bases. Mechanically ventilated. Right chest tube in place. Abdomen: Soft, nontender, nondistended, normal bowel sounds. : Prado in place. Scrotal edema. Skin: Shingles on the left shoulder anteriorly and superiorly, some healing, other blisters still open. Extremities: Lower extremity edema and anasarca. Neurologic: Patient sedated. Psych: Patient sedated. Lab and Diagnostics Result Diagram: 09/26/16 0405 09/26/16 0405 Microbiology CSF positive for VZV MRSA negative Buttock culture positive for staphylococcus aureus Blood cultures 2 out of 4 positive for gram positive cocci Sputum positive for staphylococcus aureus X-Rays, CTs and MRIs X-RAY CHEST ONE VIEW, PORTABLE IMPRESSION: Right thoracostomy tube. No pneumothorax or subcutaneous emphysema. Dictated by: Simona Johnson M.D. on 09/25/2016 at 18:52 Approved by: Simona Johnson M.D. on 09/25/2016 at 18:52 X-RAY CHEST ONE VIEW, PORTABLE IMPRESSION: 1. Support lines and tubes as above. 2. Bilateral pleural effusions, right greater than left. 3. Bilateral lower lung consolidation, increasing involving the right lung base and similar involving the left. Dictated by: Francisco Javier BASSETT Interpreted: Merry Robison MD on 09/23/2016 at 9:45 Transcribed by: JIM on 09/23/2016 at 9:45 Approved by: Merry Robison MD, PhD on 09/23/2016 at 16:56 X-RAY CHEST ONE VIEW, PORTABLE IMPRESSION: 1. Support lines and tubes as above. 2. Abnormal opacity within the right lung and the lung bases consistent with pulmonary edema and/or diffuse bilateral inflammatory process. Recommend clinical correlation and followup. Dictated by: Francisco Javier BASSETT Interpreted: Jammie Drake MD on 09/22/2016 at 9:13 12-lead ECG Normal sinus rhythm at 116 bpm, left axis deviation present, QTC 478, mild widening of QRS complex (104 ms) Additional Diagnostics DateTimeAnalyzed 05:07:00 -_ pH ____7.300 - pCO2 ___31.3__ -mmHg pO2 ___44.8__ -mmHg HCO3- ___14.9__ -mmol/L Assessment & Plan Magdaleno Villegas is a 76-year-old male with CLL currently on chemotherapy with past medical history significant for likely COPD, recent visit to [facility] in [place], and ongoing hypertension directly transferred to [facility] from [facility] due to acute septic shock secondary to presumed aspiration pneumonia. Hospital day 6. 1. Severe sepsis with shock, present on admission, active. -Etiology likely due to aspiration pneumonia versus decubitus ulcer on his buttocks or disseminated shingles. There is overall concern about the severity of illness of this patient as he is immunocompromised, on current chemotherapy for CLL. -At [facility] patient became hypotensive and unresponsive to fluids and was started on three pressors and transferred to [facility]. -On admission here patient tachycardic, pro-calcitonin 21.82, lactic acid of 4.8 (lactic acid at [facility] was 1.4). -Titrated off phenylephrine and vasopressin. Continues on norepinephrine at 0.17. -Normal saline at 125 ml/hr to be titrated down. -Blood cultures 2 out of 4 positive for gram positive cocci. -Lumbar puncture completed results in #3. -MRSA screen negative. Viral PCR negative. Cryptococcus antigen negative. Legionella and strep pneumonia antigen negative. -Dr. Ritter consulted, appreciate the expertise. 2. Staphylococcus bacteremia, present on admission active. - Blood cultures 2 out of 4 positive. - Repeat blood cultures drawn with no growth on 09/25. - Antibiotics switched to nafcillin continuos infusion on 09/24. - Dr. Ritter consulted, appreciate time and expertise. 3. Disseminated zoster, present on admission, active. -Evidence of multiple lesions in multiple dermatomes -Patient has encephalitis, hepatitis, and pneumonitis secondary to disseminated zoster -Continue on IV acyclovir. -Lumbar puncture with high opening pressure. CSF clear, WBC 19, RBC 2, Mononuclear WBCs 100, Polynuclear WBCs 0, Glucose 75, Protein 58. -Dr. Ritter consulted, appreciate the expertise. 4. Acute hypoxic respiratory failure, present on admission, active. -Patient presented with severe hypoxia and was requiring 100% FiO2, 12 of PEEP, respiratory rate of 35, and tidal volumes were initially 600 mL but was quickly taken down to 470 mL. -Chest tube placed 09/25 due to hypoxemia secondary to large pleural effusion. -Patient also has suspected underlying COPD which will complicate his pulmonary course. -Ventilator management per ICU team, appreciate the expertise 5. Lactic acidosis, present on admission, active. -Etiology is likely infectious but patient's CLL likely a contributing factor. -Lactic acid 4.8 on admission. Currently 2.2. -Fluids as above. 6. Acute kidney injury, present on admission, active. -Patient presented to [facility] with a creatinine of 0.8, however over the subsequent days prior to his transfer here he was having a slow increase in his creatinine up to 1.6 and after pressure support his creatinine on arrival here was 2.21. -This acute kidney injury is likely due to hypoperfusion/prerenal secondary to dehydration and excessive pressure support with 2 peripheral vasoconstrictors and Levophed. Likely has a degree of ATN. -Fluids at 125 ml/hr currently being titrated down. -Continue to monitor I and O and daily BMP -Nephrology consulted. Appreciate time and expertise. 7. Chronic lymphocytic leukemia, present on admission, currently undergoing chemotherapy. -No records available thus far but patient appears to be on current chemotherapy per family. -Blood counts slightly decreased. Possibly dilutional but will ask Heme/Onc to weigh in. -Neupogen given per Dr. Benavides's recommendations. -Heme/Onc consulted. Appreciate time and expertise. 8. Elevated liver enzymes, present on admission, improving. -Etiology likely multifactorial including disseminated zoster and shock liver. -Liver enzymes trending down. 9. Acute encephalopathy, present on admission, active. -Patient has a recent history of acute confusion with hospital admission and resolution of confusion during those stays. 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 -It is of note that he is also had recent shingles infection that began around the same time as confusion. -At [facility] MRI scan presumably showed PRES syndrome. Records are requested. -Sedation titrated down but continues on Propofol and fentanyl. -Serum cryptococcal antigen negative. -CT head showed no acute intracranial process. -Lumbar puncture with high opening pressure. CSF clear, WBC 19, RBC 2, Mononuclear WBCs 100, Polynuclear WBCs 0, Glucose 75, Protein 58. 10 Decubitus ulcer, present on admission -Wound care consulted. Disposition: Patient remains critically ill and in the CCU. GI Prophylaxis: H2 germaine VTE Prophylaxis: Sub-Q Heparin (Unfractionated) VTE Mechanical Devices: Intermittant Pneumatic CD Resuscitation Status: CPR: Attempt Resuscitation Attending Statement The patient was seen and examined together with Resident/House-staff on 09/26/16 and I agree with the history, exam and plan as outlined in the note above. MATTHEW LAMA DO Sep 26, 2016 07:24 Neto Meneses Sep 26, 2016 17:36
[2016-09-26] MEDS: SODIUM CHLORIDE 0.9% IV SCH (12:45)
[2016-09-26] MEDS: ACYCLOVIR IV SCH (12:45)
--- NOTE | 2016-09-26 20:04 | NUR ---
Note At noon time temp per axial was 37.9- patient was medicated with Tylenol IV 1000mg X1. Temp at 1600 was 37.2. Chronically low HH and WBC MD aware and ordered follow up labs for AM. Levophed drip was titrated between 18 and 15 mcg/kg/min to maintain MAP >60- unable to wean drip off so far. Sedation fentanyl at 150mcg/h and versed at 43 mg/h- patient was able to maintain good oxygenation and synchronized RR with ventilator he appeared to be calm- will continue decreasing sedation if able. Chest tube to 20cm H2O and wall suction only 5ml of light serum sanguineum drainage since previous shift. Lasix 60mg IV was given as ordered today- patient had total 2100ml of yellow urine output per Prado cath.
--- NOTE | 2016-09-26 20:22 | ABG ---
DateTimeAnalyzed 20:16:03 -_ pH ____7.144 - pCO2 ___46.2__ -mmHg pO2 ___59.7__ -mmHg HCO3- ___15.8__ -mmol/L ABE __-12.0__ -mmol/L tHb ____9.0__ -g/dL O2Hb ___84.8__ -% COHb ____1.1__ -% MetHb ____0.5__ -% sO2 ___86.2__ -% FIO2 ___21.0__ -% PEEP ___16.0__ -cmH2O Set_RR 16 -b/min Vt 1034.0__ -L Drawn By RN - Date/Time Notified____ 20:21:00 -_ Spontaneous_RR 19 -b/min Oxygen Device 1 VENTILATOR - Notified By MD - Notified Whom RN K.HERLICKSON - B 744 -mmHg K+ ____4.1__ -mmol/L tO2 ___10.8__ -Vol% Jeevan test N/A -
[2016-09-26] MEDS ORDERED: Amiodarone 150 mg/100 mL D5W 150 MG in IV Premix 1 EACH IV ONE (21:00)
[2016-09-26] MEDS ORDERED: Amiodarone 360 mg/200 mL D5W 360 MG, Filter, Taxol 14256-28 1 EACH in IV Premix 1 EACH IV SCH (21:00)
[2016-09-26] MEDS ORDERED: Sodium Bicarb (50 mEq) 8.4% 1 mEq/mL 50 mL Syringe IVPUSH ONE (21:05)
[2016-09-26] MEDS ORDERED: Sodium Bicarb 8.4% Inj 150 MEQ in Water Sterile for Injection 1,000 ML IV SCH (21:05)
[2016-09-26] MEDS ORDERED: Amiodarone 360 mg/200 mL D5W Premix IV ONE (21:22)
[2016-09-26] MEDS ORDERED: IV Premix 1 EACH IV ONE (21:22)
[2016-09-26] MEDS: Sodium Bicarb 8.4% Inj 150 MEQ in Dextrose 5% 1,000 ML IV SCH (21:58)
[2016-09-26] MEDS: Filgrastim 480 mCg/1.6 mL Inj SUBQ SCH (22:19)
[2016-09-27] VITALS (11 sets, daily range): BP systolic 100–141; BP diastolic 47–76; PULSE 85–89; RESP 20–25; O2SAT 93–99
[2016-09-27] MEDS: SODIUM CHLORIDE 0.9% IV SCH (00:22)
[2016-09-27] MEDS: ACYCLOVIR IV SCH (00:22)
[2016-09-27] MEDS: Chlorhexidine 0.12% 15 mL Oral Solution MT SCH ×7 (00:22→23:56)
[2016-09-27] MEDS: Heparin 5,000 Unit/mL Inj SUBQ SCH ×4 (00:22→23:56)
--- NOTE | 2016-09-27 00:42 | ABG ---
DateTimeAnalyzed 00:38:00 -_ pH ____7.234 - 7.350 7.450 pCO2 ___39.8__ -mmHg 35.0 45.0 pO2 ___54.2__ -mmHg 69.0 116 HCO3- ___16.2__ -mmol/L ABE __-10.1__ -mmol/L tHb ____7.7__ -g/dL O2Hb ___83.4__ -% COHb ____0.9__ -% MetHb ____1.3__ -% sO2 ___85.3__ -% FIO2 ___21.0__ -% PEEP ___16.0__ -cmH2O Set_RR ___20.0__ -b/min Vt __579.0__ -L Drawn By RN - Date/Time Notified____ 00:42:00 -_ Spontaneous_RR ___24.0__ -b/min Oxygen Device 1 VENTILATOR - Notified By MD - Notified Whom RN K.HERLICKSON - B 747 -mmHg tO2 ____9.1__ -Vol% Jeevan test N/A -
[2016-09-27] MEDS ORDERED: IV Premix 1 EACH IV ONE ×2 (00:44→14:44)
[2016-09-27] MEDS ORDERED: Amiodarone 360 mg/200 mL D5W Premix IV ONE ×2 (00:44→14:44)
[2016-09-27] MEDS: Norepineph 8,000 mCg/250 mL NS 8,000 MCG in IV Premix 1 EACH IV PRN (01:27)
[2016-09-27] MEDS: Midazolam 100 mg/100 mL Premix IV PRN ×2 (01:28→19:50)
[2016-09-27] MEDS: fentaNYL 2,500 mCg/250 mL 2,500 MCG in IV Premix 1 EACH IV PRN ×2 (01:28→17:06)
--- NOTE | 2016-09-27 03:52 | NUR ---
vented/sedated/tele at approx 2000 hr up to 140's, ekg done, md aware of rate changes, amiodarone gtt with bolus started, just after 2200 hr back down to 80's and pt back in sinus rhythm, vbg done, sleep lab technician aware of results, vent changes made per orders, bicarb gtt started after one amp bicarb given ivp, md aware of repeat labs per md request, rate change made to vent per rt per md request, am vbg ordered, see ccu flow sheet, fio2 .60, sats upper 90's, sx sml amount of dee sputum, oral care done, ls clearer then last night but also decreased, right ct to 20cm wall suction, sml amount of serous sang output, dressing reinforced, pt sedated on fentanyl gtt at 150mcg/hr, versed gtt increased from 3mg/hr to 4mg/hr early in shift when not synchronise with vent, effective, gen edema, arms weeping a little, cvp=20-22, adequate amt elton urine per f/c, norepi gtt at 0.13-0.15mcg/kg/min, hypoactive bt's, abd round, tf 10ml/hr, low residuals, no bm, ogt placement-wnl, hob up, uap=17, abd appears slightly rounder then last night, see ccu flow sheet, cont monitoring, plan:vent and bp support, clrt, scd's on, see ccu assessment for skin assessment, right ij intact, left picc intact,
[2016-09-27] MEDS: Sodium Bicarb 8.4% Inj 150 MEQ in Dextrose 5% 1,000 ML IV SCH ×2 (04:24→09:39)
--- NOTE | 2016-09-27 04:51 | ABG ---
DateTimeAnalyzed 04:47:00 -_ pH ____7.315 - 7.350 7.450 pCO2 ___35.8__ -mmHg 35.0 45.0 pO2 ___72.4__ -mmHg 69.0 116 HCO3- ___17.7__ -mmol/L ABE ___-7.3__ -mmol/L tHb ____7.8__ -g/dL O2Hb ___92.2__ -% COHb ____2.0__ -% MetHb ____1.1__ -% sO2 ___95.2__ -% FIO2 ___21.0__ -% PEEP ___16.0__ -cmH2O Set_RR ___24.0__ -b/min Vt __575.0__ -L Drawn By RN - Date/Time Notified____ 04:51:00 -_ Spontaneous_RR ___24.0__ -b/min Oxygen Device 1 VENTILATOR - Notified By MD - Notified Whom RN K.HERLICKSON - B 744 -mmHg tO2 ___10.2__ -Vol% Jeevan test N/A -
[2016-09-27 04:59] LABS: BASOPHILS % (AUTO) 0.3 % (0-3); Mean Corpuscular Hemoglobin 28.4 pg (27.0-35.0); Mean Corpuscular Volume 85.1 fL (81-100); Platelet Count 88 bil/L (150-400)
[2016-09-27] MEDS: Nafcillin Inj 12,000 MG in Dextrose 5% 1,000 ML IV SCH (06:00)
[2016-09-27 06:10] LABS: EOSINOPHILS % (AUTO) 4 % (0-5); MONOCYTES % (AUTO) 12 % (4-12); NEUTROPHILS % (AUTO) 48 % (40-74)
[2016-09-27] MEDS: Famotidine Inj 20 MG in IV Premix 1 EACH IV SCH (08:12)
[2016-09-27] MEDS: Furosemide 10 mg/mL 10 mL Inj IVPUSH SCH ×2 (08:12→20:01)
[2016-09-27] MEDS: metroNIDAZOLE Inj 1,000 MG in IV Premix 1 EACH IV SCH ×2 (08:13→19:59)
[2016-09-27] MEDS: Senna Leaf Extract 528 mg/15 mL Syrup PO SCH ×2 (08:13→20:07)
[2016-09-27] MEDS: Insulin Human REGular 300 Unit/3 mL Inj SUBQ SCH ×4 (08:30→20:06)
--- NOTE | 2016-09-27 08:35 | DRSVH ---
PROCEDURE: X-RAY CHEST ONE VIEW, PORTABLE ([id number]) INDICATIONS: INTUBATED, CHEST TUBE TECHNIQUE: One view of the chest was acquired. COMPARISON: [facility], CR, XR CHEST 1VW (PORTABLE), 09/25/2016, 18:19. FINDINGS: Surgical changes and devices: Right thoracostomy tube, right central venous catheter, left PICC, endo tracheal tube, and NG tube are unchanged. Lungs and pleura: There is improved aeration of the left lung when compared with the study dated 09/25. Small right pleural effusion persists. Mediastinum: Mediastinal contours appear normal. Heart size is enlarged, as before. Bones and chest wall: No suspicious bony lesions. Overlying soft tissues appear unremarkable. IMPRESSION: Improved aeration of the right lung and decreased pleural effusion when compared with the prior study. Dictated by: Simona Johnson M.D. on 09/27/2016 at 8:30 Approved by: Simona Johnson M.D. on 09/27/2016 at 8:32
--- NOTE | 2016-09-27 10:16 | PCM.PNMED ---
Subjective Date of Service Sep 27, 2016 Subjective Sedated on vent Afib/RVR recurred last noc and Amio bolus was repeated with gtt and now back in NSR Mixed resp/metabolic acidosis an issue over noc requiring vent changes and exogenous HCO3 No response to voice or nox stim Exam Vital Signs Vital Sign - Last Date Time Temp Pulse Resp B/P Pulse Ox O2 Delivery O2 Flow Rate FiO2 09/27/16 09:05 89 141/54 97 50 09/27/16 08:00 37.3 24 Mechanical Ventilator Intake and Output 09/26/16 09/26/16 09/27/16 Cumulative From/Thru 15:00 23:00 07:00 09/21/16 19:30 - 09/27/16 06:20 Intake Total 2732 ml 3851 ml 55349 ml Output Total 1305 ml 1540 ml 54094 ml Balance 1427 ml 2311 ml 70557 ml Intake IV Total 2652 ml 3592 ml 18735 ml Tube Feeding 138 ml 138 ml Tube Irrigant 80 ml 121 ml 336 ml Output Urine Total 1200 ml 1500 ml 9140 ml Gastric Drainage Total 100 ml 1135 ml Chest Tube Drainage Total 5 ml 40 ml 255 ml # Bowel Movements 0 2 Exam Obese, WDWN man orally intubated Lungs Good air movement anteriorly, decreased BS at both bases, NO wheezes CV RRR nl S1S2, no m/g/r Abd Abd wall edema, firm, no obvious tenderness, No HSM, No bowel tones Ext 3+ UE and LE edema Neuro No eye opening or spont movements Skin crusting zoster lesions Lt shoulder, resolving trunkal papules, Lab and Diagnostics Result Diagram: 09/27/165 09/27/16 0445 Microbiology CSF positive for VZV MRSA negative Buttock culture positive for staphylococcus aureus Blood cultures 2 out of 4 positive for gram positive cocci Sputum positive for staphylococcus aureus X-Rays, CTs and MRIs X-RAY CHEST ONE VIEW, PORTABLE IMPRESSION: Right thoracostomy tube. No pneumothorax or subcutaneous emphysema. Dictated by: Simona Johnson M.D. on 09/25/2016 at 18:52 Approved by: Simona Johnson M.D. on 09/25/2016 at 18:52 X-RAY CHEST ONE VIEW, PORTABLE IMPRESSION: 1. Support lines and tubes as above. 2. Bilateral pleural effusions, right greater than left. 3. Bilateral lower lung consolidation, increasing involving the right lung base and similar involving the left. Dictated by: Francisco Javier BASSETT Interpreted: Merry Robison MD on 09/23/2016 at 9:45 Transcribed by: JIM on 09/23/2016 at 9:45 Approved by: Merry Robison MD, PhD on 09/23/2016 at 16:56 X-RAY CHEST ONE VIEW, PORTABLE IMPRESSION: 1. Support lines and tubes as above. 2. Abnormal opacity within the right lung and the lung bases consistent with pulmonary edema and/or diffuse bilateral inflammatory process. Recommend clinical correlation and followup. Dictated by: Francisco Javier BASSETT Interpreted: Jammie Drake MD on 09/22/2016 at 9:13 12-lead ECG Normal sinus rhythm at 116 bpm, left axis deviation present, QTC 478, mild widening of QRS complex (104 ms) Additional Diagnostics DateTimeAnalyzed 05:07:00 -_ pH ____7.300 - pCO2 ___31.3__ -mmHg pO2 ___44.8__ -mmHg HCO3- ___14.9__ -mmol/L Assessment & Plan PULMONARY/CRITICAL CARE CONSULT NOTE - Hospital day 6 - Ventilator day 6 Mr. Villegas was emergently transferred from [facility] with severe sepsis on triple pressors and acute respiratory failure on ventilation with an FiO2 of 1.0. He had been admitted there with AMS and obvious zoster eruption in multiple dermatomes in the setting of long-standing CLL. Earlier in the same week, he had been admitted briefly to [facility] with a similar presentation and had been discharged after 24 hours on acyclovir with a diagnosis of PRES based on an MRI. No LP had been done at either institution. Here he has remained in the CCU requiring pressors and continued ventilatory support. Blood, sputum, wound, and urine cultures have grown MSSA. 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 Paroxysmal A. fib with RVR occurred 09/24, converted to NSR on Amio gtt 09/25. A fib Recurred evening 09/27 and now back on Amio gtt but back in NSR Late 09/25 he developed refractory hypoxemia d/t massive Rt effusion requiring urgent Rt chest tube placement with drainage of several liters pleural fluid. IMP - Acute hypoxemic respiratory failure due to MSSA PNA, sepsis and dissemintated zoster - Severe sepsis likely secondary to aspiration PNA, MSSA bacteremia, and disseminated zoster. 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 fib, now NSR on Amio gtt - DANY, nonoliguric, in fact excellent UOP. May be approaching need for acute HD for volume management and acidemia with anasarca and large bilat effusions and need for HCO3 gtt I wonder whether there is a component of Acyclovir renal toxicity - CLL x 20 years, recently on Ibrutinib currently held - Anasarca - Normocytic normochromic anemia, acute, Thrombocytopenia REC Awakening trial, Wean FiO2 as tolerates, Begin PEEP wean slowly once FiO2 below 0.5 Wean pressors as tolerates Consider further dose adjustment of Acyclovir or alternative agents given concern for nephrotoxicity Further management of DANY per Nephrology Nafcillin gtt per ID, Consider stopping Metronidazole HCO3 gtt for now with serial ABG's Stop Amio gtt after 48 if remains in NSR Chest tube to remain to suction until off positive pressure ventilation. 50 minutes critical care exclusive of shared time and procedures GI Prophylaxis: H2 germaine VTE Prophylaxis: Sub-Q Heparin (Unfractionated) VTE Mechanical Devices: Intermittant Pneumatic CD Resuscitation Status: CPR: Attempt Resuscitation Duc Gerardo MD Sep 27, 2016 10:15
[2016-09-27] MEDS ORDERED: Sodium Bicarb 8.4% Inj 150 MEQ in Dextrose 5% 1,000 ML IV SCH (11:38)
--- NOTE | 2016-09-27 12:43 | PROG NOTE ---
[address] [address] PROGRESS NOTE PATIENT: BRITTNEY CASILLAS : 1940 MR#: [id number] ADMIT: 09/21/2016 JOB ID: [id number] INFECTIOUS DISEASE FOLLOWUP: DATE: 09/27/2016 REASON FOR FOLLOWUP: Disseminated VZV and staph sepsis, staphylococcal bacteremia with septic shock. INTERVAL HISTORY: Over the past 48 hours, the patient has been relatively stable on the ventilator in the ICU. He is requiring vasopressor agents, but the amount has gradually been diminished. There have been no major efforts to wake him up and he continues to be sedated on the ventilator. No additional history is available for him, but I discussed the case at the bedside with the ICU nurse, as well as with Dr. Gerardo, the attending, Dr. Gerardo and Dr. Casillas, the attendings on this case. The patient, as noted, is able to supply no additional history himself at this time. PHYSICAL EXAMINATION: VITAL SIGNS: Physical exam reveals an afebrile gentleman, temp 37.3. Pulse 89, respiratory rate 24, blood pressure 141/54. He is saturating fairly well on 50% on the ventilator with 16 of PEEP. This is down slightly from 60% yesterday and continues a downward trend over the past few days. He is still on minimal doses of norepinephrine and the nurses are endeavoring to wean this off at this point. Urine output continues to be excellent. Blood pressure 141/54. EYES: Examination of the eyes reveals some crusting and mild chemosis. ORAL: The orogastric and oral endotracheal tubes are in good position. NECK: Benign. LUNGS: Notable for some rales bilaterally. CARDIAC TONES: Regular rate and rhythm, though the patient continues on amiodarone. ABDOMEN: Somewhat distended, but without overt mass or tenderness. SKIN: The skin lesions consistent with varicella zoster which were present over the patient's left shoulder as well as scattered over his entire body are all crusted and/or resolving at this point. Prado catheter is present. A new right chest tube is present and these both appear benign. LOWER EXTREMITIES: Without change. LABORATORIES: Include white count 4000, platelet count 88,000. Creatinine has been rising over the weekend. It is now up to 3.82 and it had been as low as 2.5 just four days ago. His calculated creatinine clearance is now extremely poor. Urinalysis had no pyuria. Our QuantiFERON Gold has come back indeterminate. Cryptococcal antigen negative. Fungitell and galactomannan negative. Blood cultures negative. CSF of course and skin were positive by PCR for VZV. IMAGING: Includes improved aeration of the right lung with the presence of the chest tube. 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 His varicella-zoster virus is actually improving steadily in the areas we can observe, which includes basically the liver, which is now completely normalized, as well as his skin which is completely crusted and dried. The remaining question is whether the varicella-zoster virus is still active in terms of meningoencephalitis and there is really no way to determine that as we cannot awaken the patient yet nor do we wish to repeat a PCR and I am not certain that would help even if we did repeat a PCR and it was still positive, though a negative might be helpful. The patient also has Staphylococcus aureus bacteremia as well as a decubitus ulcer which grew Staphylococcus aureus and Bacteroides. He remains on nafcillin and Flagyl for the Staphylococcus bacteremia and the Flagyl, of course, is just for the Bacteroides. The main question here is what to do with his acyclovir dosing. There is concern from the Renal and the intensive care unit attending that the creatinine may be bumping because of acyclovir. This is difficult to prove or disprove. Acyclovir can cause crystal urea and renal impairment, but this tends to be prevented by hydration and, in fact, even when it occurs, it gets better with hydration. The patient continues to appear to be well hydrated and to make excellent urine, so it is not clear to me at this point if his renal insufficiency is in any way related to the acyclovir. It could also of course be on the basis of his sepsis with Staphylococcus aureus or even conceivably the beginning of interstitial nephritis due to his beta-lactam therapy. RECOMMENDATIONS: 1. I would continue with IV nafcillin and Flagyl for the Staph aureus bacteremia/sepsis and the Bacteroides. 2. Will drop the acyclovir to q. 24 h. dosing rather than q.12 h. dosing to reflect his diminished renal function. 3. A random acyclovir level will be sent at this time. 4. ID will continue to closely observe this patient with you. 5. 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 Thank you very much.
--- NOTE | 2016-09-27 12:46 | PCM.PNMED ---
Subjective Date of Service Sep 27, 2016 Subjective The patient's blood pressure continues to improve and over the last 36 hours he has had over 5 L of urine out. His intra-abdominal pressure continues to rise and this morning is 19 while yesterday patient 12. His creatinine continued to increase despite his good urine output. This morning these values were 102 and 3.8 respectively. I suspect that some of his nonoliguric renal failure at this point is due to intra-abdominal pressure. He is continuing to receive 200 mL's an hour all sodium bicarbonate drip, his CVP is morning is 16 and I have discussed the case with critical care and strongly urge but occasionally this much fluid or discontinuation of it. As he is getting tube feedings Boomo patient gives a sodium bicarbonate down his NG tube. Exam Vital Signs Vital Sign - Last Date Time Temp Pulse Resp B/P Pulse Ox O2 Delivery O2 Flow Rate FiO2 09/27/16 09:05 89 141/54 97 50 09/27/16 08:00 37.3 24 Mechanical Ventilator Intake and Output 09/26/16 09/26/16 09/27/16 Cumulative From/Thru 15:00 23:00 07:00 09/21/16 19:30 - 09/27/16 06:20 Intake Total 2732 ml 3851 ml 85584 ml Output Total 1305 ml 1540 ml 40600 ml Balance 1427 ml 2311 ml 04220 ml Intake IV Total 2652 ml 3592 ml 17940 ml Tube Feeding 138 ml 138 ml Tube Irrigant 80 ml 121 ml 336 ml Output Urine Total 1200 ml 1500 ml 9140 ml Gastric Drainage Total 100 ml 1135 ml Chest Tube Drainage Total 5 ml 40 ml 255 ml # Bowel Movements 0 2 Exam Patient remains sedated on a ventilator. He has generalized anasarca all over his body and his sclera are pale. Neck veins are distended. Lungs showed some scattered rhonchi and rales approximately nursing home up." Which was regular with a systolic ejection murmur. Abdomen is more distended and more tenseness compared to yesterday. Bowel sounds remain diminished. Extremities show generalized anasarca which has worsened compared to yesterday. Lab and Diagnostics Result Diagram: 09/27/16 0445 09/27/16 0445 Microbiology CSF positive for VZV MRSA negative Buttock culture positive for staphylococcus aureus Blood cultures 2 out of 4 positive for gram positive cocci Sputum positive for staphylococcus aureus X-Rays, CTs and MRIs X-RAY CHEST ONE VIEW, PORTABLE IMPRESSION: Right thoracostomy tube. No pneumothorax or subcutaneous emphysema. Dictated by: Simona Johnson M.D. on 09/25/2016 at 18:52 Approved by: Simona Johnson M.D. on 09/25/2016 at 18:52 X-RAY CHEST ONE VIEW, PORTABLE IMPRESSION: 1. Support lines and tubes as above. 2. Bilateral pleural effusions, right greater than left. 3. Bilateral lower lung consolidation, increasing involving the right lung base and similar involving the left. Dictated by: Francisco Javier BASSETT Interpreted: Merry Robison MD on 09/23/2016 at 9:45 Transcribed by: JIM on 09/23/2016 at 9:45 Approved by: Merry Robison MD, PhD on 09/23/2016 at 16:56 X-RAY CHEST ONE VIEW, PORTABLE IMPRESSION: 1. Support lines and tubes as above. 2. Abnormal opacity within the right lung and the lung bases consistent with pulmonary edema and/or diffuse bilateral inflammatory process. Recommend clinical correlation and followup. Dictated by: Francisco Javier BASSETT Interpreted: Jammie Drake MD on 09/22/2016 at 9:13 12-lead ECG Normal sinus rhythm at 116 bpm, left axis deviation present, QTC 478, mild widening of QRS complex (104 ms) Additional Diagnostics DateTimeAnalyzed 05:07:00 -_ pH ____7.300 - pCO2 ___31.3__ -mmHg pO2 ___44.8__ -mmHg HCO3- ___14.9__ -mmol/L Assessment & Plan Impression #1 acute kidney injury/acute tubular necrosis nonoliguric which is worsening despite 5. Urine output Increased anion gap metabolic acidosis which is multifactorial #3 hypoalbuminemia for anemia which is multifactorial Recommendations #1 I would continue to give him IV diuretics and several more doses of 25 g of albumin. I would also recommend consideration of an additional unit of blood to maximize his colloid and once again we need to decrease his IV fluids because of his increasing anasarca and increased intra- abdominal pressures. Paranoid for sodium bicarbonate tablets to be given via his NG tube. I have discussed the case with critical care and with Dr. Pelaez from infectious disease and agree with decreasing his acyclovir dose. GI Prophylaxis: H2 germaine VTE Prophylaxis: Sub-Q Heparin (Unfractionated) VTE Mechanical Devices: Intermittant Pneumatic CD Resuscitation Status: CPR: Attempt Resuscitation Tres Jefferson DO Sep 27, 2016 12:46
--- NOTE | 2016-09-27 16:03 | NUR ---
Social Work: Note Pt discussed in morning rounds. Per MD, pt remains vented at sedated at this time. Accordingly, pt d/c plan has not progressed since last YOUTH SERVICES SPECIALIST note. YOUTH SERVICES SPECIALIST will continue to follow for d/c planning and additional needs. Gurmeet Treviño MSW
--- NOTE | 2016-09-27 17:37 | PCM.PNMED ---
Subjective Date of Service Sep 27, 2016 Amy Villegas is a 76-year-old male with CLL currently on chemotherapy with past medical history significant for likely COPD, recent visit to [facility] in [place], and ongoing hypertension directly transferred to [facility] from [facility] due to acute septic shock secondary to presumed aspiration pneumonia. Hospital day 7. Overnight: Patient was restarted on amiodarone drip yesterday evening. Today: Patient remains intubated and sedated. Norepinephrine at 0.04 maintaining MAPs > 60. Fentanyl and versed gtt for sedation. ROS is not obtainable. Exam Vital Signs Vital Sign - Last Date Time Temp Pulse Resp B/P Pulse Ox O2 Delivery O2 Flow Rate FiO2 09/27/16 16:00 37.2 89 Mechanical Ventilator 09/27/16 12:45 99 50 09/27/16 12:00 24 Intake and Output 09/26/16 09/26/16 09/27/16 Cumulative From/Thru 15:00 23:00 07:00 09/21/16 19:30 - 09/27/16 06:20 Intake Total 2732 ml 3851 ml 82168 ml Output Total 1305 ml 1540 ml 64820 ml Balance 1427 ml 2311 ml 02297 ml Intake IV Total 2652 ml 3592 ml 66872 ml Tube Feeding 138 ml 138 ml Tube Irrigant 80 ml 121 ml 336 ml Output Urine Total 1200 ml 1500 ml 9140 ml Gastric Drainage Total 100 ml 1135 ml Chest Tube Drainage Total 5 ml 40 ml 255 ml # Bowel Movements 0 2 Exam Gen: Intubated and sedated, anasarca, two point restraints in the CCU. HEENT: PERRLA, corneal edema, large neck, R IJ in place. Cardio: Regular rate and rhythm, no murmurs noted. Respiratory: Faint crackles in bilateral bases. Mechanically ventilated. Right chest tube in place with serosanguinous fluid. Abdomen: Soft, nontender, nondistended, normal bowel sounds. : Prado in place. Scrotal edema. Skin: Shingles on the left shoulder anteriorly and superiorly, some healing, other blisters still open. Extremities: Lower extremity edema and anasarca. Neurologic: Patient sedated. Psych: Patient sedated. IVs and Medications Medications Reviewed: Medications were reviewed in detail Lab and Diagnostics Result Diagram: 1/22/17 0445 1/22/17 0445 Microbiology CSF positive for VZV MRSA negative Buttock culture positive for staphylococcus aureus Blood cultures 2 out of 4 positive for gram positive cocci Sputum positive for staphylococcus aureus X-Rays, CTs and MRIs X-RAY CHEST ONE VIEW, PORTABLE IMPRESSION: Right thoracostomy tube. No pneumothorax or subcutaneous emphysema. Dictated by: Simona Johnson M.D. on 09/25/2016 at 18:52 Approved by: Simona Johnson M.D. on 09/25/2016 at 18:52 X-RAY CHEST ONE VIEW, PORTABLE IMPRESSION: 1. Support lines and tubes as above. 2. Bilateral pleural effusions, right greater than left. 3. Bilateral lower lung consolidation, increasing involving the right lung base and similar involving the left. Dictated by: Francisco Javier BASSETT Interpreted: Merry Robison MD on 09/23/2016 at 9:45 Transcribed by: JIM on 09/23/2016 at 9:45 Approved by: Merry Robison MD, PhD on 09/23/2016 at 16:56 X-RAY CHEST ONE VIEW, PORTABLE IMPRESSION: 1. Support lines and tubes as above. 2. Abnormal opacity within the right lung and the lung bases consistent with pulmonary edema and/or diffuse bilateral inflammatory process. Recommend clinical correlation and followup. Dictated by: Francisco Javier BASSETT Interpreted: Jammie Drake MD on 09/22/2016 at 9: 13 X-RAY CHEST ONE VIEW, PORTABLE IMPRESSION: Improved aeration of the right lung and decreased pleural effusion when compared with the prior study. Dictated by: Simona Johnson M.D. on 09/27/2016 at 8:30 12-lead ECG Normal sinus rhythm at 116 bpm, left axis deviation present, QTC 478, mild widening of QRS complex (104 ms) Additional Diagnostics DateTimeAnalyzed 04:47:00 -_ pH ____7.315 - 7.350 7.450 pCO2 ___35.8__ -mmHg 35.0 45.0 pO2 ___72.4__ -mmHg 69.0 116 HCO3- ___17.7__ -mmol/L Assessment & Plan Magdaleno Villegas is a 76-year-old male with CLL currently on chemotherapy with past medical history significant for likely COPD, recent visit to [facility] in [place], and ongoing hypertension directly transferred to [facility] from [facility] due to acute septic shock secondary to presumed aspiration pneumonia. Hospital day 7. 1. Severe sepsis with shock, present on admission, active. -Etiology likely due to aspiration pneumonia versus decubitus ulcer on his buttocks or disseminated shingles. There is overall concern about the severity of illness of this patient as he is immunocompromised, on current chemotherapy for CLL. -At [facility] patient became hypotensive and unresponsive to fluids and was started on three pressors and transferred to [facility]. -On admission here patient tachycardic, pro-calcitonin 21.82, lactic acid of 4.8 (lactic acid at [facility] was 1.4). -Titrated off phenylephrine and vasopressin. Continues on norepinephrine at 0.04. -Blood cultures 2 out of 4 positive for gram positive cocci. -Lumbar puncture completed results in #3. -MRSA screen negative. Viral PCR negative. Cryptococcus antigen negative. Legionella and strep pneumonia antigen negative. -Dr. Ritter consulted, appreciate the expertise. 2. Staphylococcus bacteremia, present on admission active. - Blood cultures 2 out of 4 positive. - Repeat blood cultures drawn with no growth on 09/27. - Antibiotics switched to nafcillin continuos infusion on 09/24. - Dr. Ritter consulted, appreciate time and expertise. 3. Disseminated zoster, present on admission, active. -Evidence of multiple lesions in multiple dermatomes -Patient has encephalitis, hepatitis, and pneumonitis secondary to disseminated zoster -Continue on IV acyclovir, dose adjusted for renal failure by Dr. Ritter -Lumbar puncture with high opening pressure. CSF clear, WBC 19, RBC 2, Mononuclear WBCs 100, Polynuclear WBCs 0, Glucose 75, Protein 58. -Dr. Ritter consulted, appreciate the expertise. 4. Acute hypoxic respiratory failure, present on admission, active. -Patient presented with severe hypoxia and was requiring 100% FiO2, 12 of PEEP, respiratory rate of 35, and tidal volumes were initially 600 mL but was quickly taken down to 470 mL. -Chest tube placed 09/25 due to hypoxemia secondary to large pleural effusion. -Patient also has suspected underlying COPD which will complicate his pulmonary course. -Ventilator management per ICU team, appreciate the expertise 5. Lactic acidosis, present on admission, active. -Etiology is likely infectious but patient's CLL likely a contributing factor. -Lactic acid 4.8 on admission. Currently 2.2. -Will continue to monitor daily. 6. Acute kidney injury, present on admission, worsening -Patient presented to [facility] with a creatinine of 0.8, however over the subsequent days prior to his transfer here he was having a slow increase in his creatinine up to 1.6 and after pressure support his creatinine on arrival here was 2.21. -This acute kidney injury is likely due to hypoperfusion/prerenal secondary to dehydration and excessive pressure support with 2 peripheral vasoconstrictors and Levophed. Likely has a degree of ATN. -IVF stopped due severe anasarca -Albumin 25 mg Q8 -Continue to monitor I and O and daily BMP -Nephrology consulted. Appreciate time and expertise. -No indication for dialysis at this time 7. Chronic lymphocytic leukemia, present on admission, currently undergoing chemotherapy. -No records available thus far but patient appears to be on current chemotherapy per family. -Blood counts slightly decreased. Possibly dilutional but will ask Heme/Onc to weigh in. -Neupogen given per Dr. Benavides's recommendations. -Heme/Onc consulted. Appreciate time and expertise. 8. Elevated liver enzymes, present on admission, improving. -Etiology likely multifactorial including disseminated zoster and shock liver. -Liver enzymes trending down. 9. Acute encephalopathy, present on admission, active. -Patient has a recent history of acute confusion with hospital admission and resolution of confusion during those stays. 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 -It is of note that he is also had recent shingles infection that began around the same time as confusion. -At [facility] MRI scan presumably showed PRES syndrome. Records are requested. -Sedation titrated down but continues on Propofol and fentanyl. -Serum cryptococcal antigen negative. -CT head showed no acute intracranial process. -Lumbar puncture with high opening pressure. CSF clear, WBC 19, RBC 2, Mononuclear WBCs 100, Polynuclear WBCs 0, Glucose 75, Protein 58. 10 Decubitus ulcer, present on admission -Wound care consulted. Disposition: Patient remains critically ill and in the CCU. GI Prophylaxis: H2 germaine VTE Prophylaxis: Sub-Q Heparin (Unfractionated) VTE Mechanical Devices: Intermittant Pneumatic CD Resuscitation Status: CPR: Attempt Resuscitation Attending Statement The patient was seen and examined together with Dr. Khan on 09/27/16 and I agree with the history, exam and plan as outlined in the note above. Aisha Khan DO Sep 27, 2016 17:20 Neto Meneses Sep 28, 2016 20:37
--- NOTE | 2016-09-27 17:38 | NUR ---
Remains on vent support, in isolation room. Is not restrained. Fi02 decreased to 45%. Bicarb gtt stopped, changed to PO via OGT. Pressors weaned off. Fentanyl and Versed effective to adequate sedation. MD aware UAP 18-19. Abd distended, slightly taut. TFs at trickle, advanced per orders, scant residuals. No stool. SQ Insulin for elevated blood sugars. Sinus rhythm on tele. Chest tube in place, no output. Family visited, updated by .
[2016-09-27] MEDS: 0.9% Sodium Chloride 500 ML IV PRN (19:52)
[2016-09-27] MEDS: Filgrastim 480 mCg/1.6 mL Inj SUBQ SCH (20:03)
[2016-09-27] MEDS ORDERED: Amiodarone 360 mg/200 mL D5W 360 MG in IV Premix 1 EACH IV SCH (22:25)
--- NOTE | 2016-09-27 23:01 | ABG ---
DateTimeAnalyzed 22:57:00 -_ pH ____7.335 - pCO2 ___42.8__ -mmHg pO2 ___40.8__ -mmHg HCO3- ___22.2__ -mmol/L ABE ___-2.8__ -mmol/L tHb ____7.9__ -g/dL O2Hb ___72.4__ -% COHb ____1.1__ -% MetHb ____1.1__ -% sO2 ___74.0__ -% FIO2 ___45.0__ -% PEEP ___16.0__ -cmH2O Set_RR ___24.0__ -b/min Vt __530.0__ -L Drawn By RN - Oxygen Device 2 PRESSURE CONTROL 18 -_ Date/Time Notified____ 23:01:00 -_ Spontaneous_RR ___24.0__ -b/min Oxygen Device 1 VENTILATOR - Notified By BLF - Notified Whom [facility] RN -_ B 748 -mmHg tO2 ____8.1__ -Vol% Jeevan test N/A -
[2016-09-27] MEDS: Albumin 25% 25 GM in IV Premix 1 EACH IV SCH (23:56)
[2016-09-28] VITALS (15 sets, daily range): BP systolic 97–145; BP diastolic 42–62; PULSE 75–92; RESP 24–26; O2SAT 90–100
[2016-09-28] MEDS: Insulin Human REGular 300 Unit/3 mL Inj SUBQ SCH ×4 (02:04→22:35)
[2016-09-28 04:59] LABS: Mean Corpuscular Hemoglobin 28.7 pg (27.0-35.0); Mean Corpuscular Volume 82.7 fL (81-100); Platelet Count 61 bil/L (150-400)
[2016-09-28] MEDS: Chlorhexidine 0.12% 15 mL Oral Solution MT SCH ×6 (05:06→23:59)
[2016-09-28 05:24] LABS: Magnesium 1.9 mg/dL (1.6-2.6)
[2016-09-28 05:31] LABS: BASOPHILS % (AUTO) 0 % (0-3); EOSINOPHILS % (AUTO) 0 % (0-5); MONOCYTES % (AUTO) 10 % (4-12); NEUTROPHILS % (AUTO) 64 % (40-74)
[2016-09-28] MEDS: Nafcillin Inj 12,000 MG in Dextrose 5% 1,000 ML IV SCH (05:40)
[2016-09-28] MEDS ORDERED: KCl 40 mEq/100 mL (CENTRAL) 40 MEQ in IV Premix 1 EACH IV ONE ×2 (06:00→16:10)
[2016-09-28] MEDS ORDERED: Potassium Chloride 20 mEq/15 mL 15mL Oral Soln PO ONE ×2 (06:05→14:25)
--- NOTE | 2016-09-28 06:11 | ABG ---
DateTimeAnalyzed 06:07:00 -_ pH ____7.313 - pCO2 ___44.7__ -mmHg pO2 ___42.2__ -mmHg HCO3- ___22.0__ -mmol/L ABE ___-3.4__ -mmol/L tHb ____7.9__ -g/dL O2Hb ___72.6__ -% COHb ____1.1__ -% MetHb ____1.1__ -% sO2 ___74.2__ -% FIO2 ___55.0__ -% PEEP ___16.0__ -cmH2O Set_RR ___26.0__ -b/min Vt __561.0__ -L Drawn By RN - Oxygen Device 2 PRESSURE CONTROL 18 -_ Date/Time Notified____ 06:11:00 -_ Spontaneous_RR ___24.0__ -b/min Oxygen Device 1 VENTILATOR - Notified By BLF - Notified Whom [facility] -____ B 750 -mmHg tO2 ____8.1__ -Vol% Jeevan test N/A -
--- NOTE | 2016-09-28 06:27 | NUR ---
vent/lab results/stooling .45 fio2 per vent most of the night with sats mid to upper 90's until approx 0500 when pt cleaned up after having a stool, sats down to 88% after pt cleaned up, fio2 increased to .55 per RT, sats up to 92%, resp rate in low 30's, bp up to 140-170/80's, pt given total of 4 mg iv versed for sedation, effective for sedation and breathing with vent, am cxr done, vbg done about 30-45 minutes after turning and cxr, fio2 increase to .70 per RT at approx 0615, sats now 93-94%, resp rate= 24-27/24, ls- decreased but cl most of night, this am ls- slightly course- more on right, sx sml amount of thick dee blood tinged sputum per ett, sml amount of bloody drainage sx from pt's left nare when pt turned also, see ccu flow sheet for vent settings and vitals, right chest tube dressing cdi, chest tube with 20mls of serous sang output, pt sedated on versed gtt at 4mg/hr and fentanyl gtt at 150mcg/hr, ogt placement-wnl, pt marixa tf well with residuals between 25-100mls, hypoactive bt's, uap=16-17, abd round, bm times two tonight, buttock dressing changed-cdi, amiodarone gtt continued at 0.5mg/min for another 24hrs (48hr total), tele-sr, hr 70-80's, levophed gtt at 0.02-0.04mcg/kg/min, map>65, cvp=17-21, 2300 uop per f/c, right ij intact, left picc intact, paged with am lab results, increase in fio2, and that pt is on Sq heparin, po k+given, iv kcl started, update given to am property appraiser about pt's lab results and assessment, kcl rider stopped per verbal order, bmp already ordered for noon, see ccu flow sheet, continue vent support, bp support, scd's on, bed on continuous rotation, lift sheet under pt, generalized edema,
[2016-09-28] MEDS: Famotidine Inj 20 MG in IV Premix 1 EACH IV SCH (08:25)
[2016-09-28] MEDS: SODIUM CHLORIDE 0.9% IV SCH (08:27)
[2016-09-28] MEDS: ACYCLOVIR IV SCH (08:27)
[2016-09-28] MEDS: Albumin 25% 25 GM in IV Premix 1 EACH IV SCH ×3 (08:27→23:57)
[2016-09-28] MEDS: metroNIDAZOLE Inj 1,000 MG in IV Premix 1 EACH IV SCH ×2 (08:27→22:18)
[2016-09-28] MEDS: Senna Leaf Extract 528 mg/15 mL Syrup PO SCH ×2 (08:28→22:18)
[2016-09-28] MEDS: Furosemide 10 mg/mL 10 mL Inj IVPUSH SCH ×2 (08:28→22:17)
[2016-09-28] MEDS: Heparin 5,000 Unit/mL Inj SUBQ SCH ×3 (09:03→23:59)
--- NOTE | 2016-09-28 09:32 | DRSVH ---
PROCEDURE: X-RAY CHEST ONE VIEW, PORTABLE ([id number]) INDICATIONS: respiratory failure TECHNIQUE: One view of the chest was acquired. COMPARISON: [facility], CR, XR CHEST 1VW (PORTABLE), 09/27/2016, 5:42. FINDINGS: Surgical changes and devices: Stable position of right pleural drain, right IJ CVL, ETT and nasogastr ic tubes.. Lungs and pleura: Interstitium is prominent and there is persistent bibasilar airspace opacities. Sm all pleural effusions. No definite pneumothorax. Mediastinum: Mediastinal contours appear normal. Heart size is normal. Bones and chest wall: No suspicious bony lesions. Overlying soft tissues appear unremarkable. IMPRESSION: 1. Stable position of support lines and tubes. 2. Mild edema and/or pneumonia versus atelectasis involving the lung bases. 3. Small pleural effusions unchanged. Dictated by: Francisco Javier Antonio RRA Interpreted: Mike Monteiro MD on 09/28/2016 at 9:30 Transcribed by: ISAURA on 09/28/2016 at 9:32 Approved by: Mike Monteiro M.D. on 09/28/2016 at 10:02
--- NOTE | 2016-09-28 10:04 | NUR ---
Respiratory Called to bedside by RN to check cuff leak. Found ETT dislodged from recorded paulo of 25 to 20 at the gums. Rt suctioned orally to clear secretions, deflated cuff, advanced tube to 25 at the teeth, reinflated cuff and retightened tube ryan. Had RN call for stat xray to confirm position of tube. Xray came during this note, Rt advanced tube to 26 at teeth per xray visual. Pt's pressures, volumes, HR and O2 saturation are appropriate for this Pt at this time.
[2016-09-28] MEDS: fentaNYL 2,500 mCg/250 mL 2,500 MCG in IV Premix 1 EACH IV PRN (10:54)
--- NOTE | 2016-09-28 10:58 | PROG NOTE ---
[address] [address] PROGRESS NOTE PATIENT: BRITTNEY CASILLAS : 1940 MR#: [id number] ADMIT: 09/21/2016 JOB ID: [id number] DATE: 09/28/2016 REASON FOR FOLLOW UP: Disseminated varicella zoster with associated encephalitis as well as disseminated Staphylococcal infection with bacteremia in a ventilator dependent respiratory failure patient with renal failure. INTERVAL HISTORY: Overnight, the patient has continued to be critically ill in the ICU. He is requiring very low doses of norepinephrine and producing copious amounts of urine at this point, but he remains in renal failure with acidosis and hypokalemia. He additionally remains ventilator dependent. with the current FiO2 which had to be escalated all the way up to 70%. Because of his ongoing sedation, the patient is not responsive. This case was discussed at the bedside with the nursing team as well as during ICU rounds with the entire ICU team. PHYSICAL EXAMINATION: Reveals a critically ill gentleman, lying supine in his bed. His temp is 36.3. Note that he has now been afebrile for three full days. His pulse is in the 70s, blood pressure 112/58, with 0.04 mcg/kg per minute of norepinephrine. Saturating 99% on 70 and 16 of PEEP. Examination of the eyes reveals some mild bilateral conjunctivitis. The oral gastric tube and oral endotracheal tube are in good position. He has a left upper extremity PICC line and a right neck triple lumen CVP, both of which appear benign. He does not have an A-line any longer. The chest tube is present on the right with very little drainage. The endotracheal tube has minimal secretions. Lungs are notable for rales at the bases. Cardiac tones are quite distant. Abdomen is slightly distended, without focal mass or ascites. The scrotum is grossly enlarged. A Prado catheter is present. The extremities are warm and well perfused, with moderate edema bilaterally. LABORATORIES: Include white count 5200, with 7% bands. Creatinine stable at 3.72. LFTs are normal. Potassium quite low at 2.7. Urinalysis without white cells. Acyclovir level pending. QuantiFERON Gold indeterminate. Crypto antigen and Fungitell negative. Initial blood cultures grew Staph aureus. The culture of the decubitus ulcer on admission grew Staph aureus, and Bacteroides. Sputum culture on admission also grew Staph aureus. All of the Staph isolates are MSSA. A MRSA screen was negative. Followup blood cultures have all been negative. Spinal fluid was positive for VZV, and had 19 white cells. IMAGING: Includes yesterday's chest x-ray which shows improving aeration of the right lung. IMPRESSION: An extremely complex case of a gentleman with chronic lymphocytic leukemia, who developed disseminated varicella zoster virus, followed by Staph aureus bacteremia and septic shock. 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 The Staph bacteremia likely arose from the skin injury caused by the zoster, or perhaps from the decub, though I think more likely from the diffuse skin breakdown was evident on admission. At this point, the patient is improving with respect to his VZV in that his skin lesions have completely crusted. I think from an infection control perspective, he can be released from isolation on that basis. 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 How long to treat his Staph aureus bacteremia is unknown. At this point, we do not have a transesophageal echo and this would be the critical step in determining how long to treat. We do know that the transthoracic echo did not show any notable abnormalities, but as the banjo repairer stated, there is no meaningful valvular data, as the views of the valves were very difficult, and I think we need to continue with nafcillin for six full weeks unless we get a REGINALD which exonerates the valves, in which case we could shorten the nafcillin to either two or four weeks. RECOMMENDATIONS: 1. Will continue with acyclovir through the at a once a day adjusted dose, which I have discussed with both the pharmacy and with Nephrology. 2. All isolation can be dropped as of today, which I have discussed with infection control and the nursing staff. 3. Will continue with nafcillin for a planned six total weeks unless we get a REGINALD which shows normal valves. 4. This case was discussed extensively during intensive care unit rounds. 5. Continue with Flagyl for about a 10 day total course.
--- NOTE | 2016-09-28 11:14 | DRSVH ---
PROCEDURE: X-RAY CHEST ONE VIEW, PORTABLE ([id number]) INDICATIONS: ETT movement TECHNIQUE: One view of the chest was acquired. COMPARISON: [facility], CR, XR CHEST 1VW (PORTABLE), 09/28/2016, 4:49. FINDINGS: Surgical changes and devices: ET tube is 5.3 cm superior to the eh. Right-sided chest tube, NG tu be and central venous catheter stable in position. Lungs and pleura: No pneumothorax. Patchy opacities noted in the lung bases bilaterally which have d ecreased in size. Trace bilateral pleural fluid collections. Mediastinum: Mediastinal contours appear normal. Heart size is normal. Bones and chest wall: No suspicious bony lesions. Overlying soft tissues appear unremarkable. IMPRESSION: ET tube 5.5 cm superior to eh. Dictated by: Merry Robison MD, PhD on 09/28/2016 at 11:11 Approved by: Merry Robison MD, PhD on 09/28/2016 at 11:12
--- NOTE | 2016-09-28 11:50 | NUR ---
GREGORY: Patient intubated and unable to sign for self. Asked PUBLIC MESSAGE SERVICE SUPERVISOR to follow up via phone with family.
--- NOTE | 2016-09-28 11:53 | PCM.PNMED ---
Subjective Date of Service Sep 28, 2016 Subjective responding well with IV loop diuretics, good UOP. intubated, sedated. low dose norepinephrine. hypokalemia noted today. improving metabolic acidosis. Exam Vital Signs Vital Sign - Last Date Time Temp Pulse Resp B/P Pulse Ox O2 Delivery O2 Flow Rate FiO2 09/28/16 08:00 36.3 75 24 112/58 99 Mechanical Ventilator 70 Intake and Output 09/27/16 09/27/16 09/28/16 Cumulative From/Thru 15:00 23:00 07:00 09/21/16 19:30 - 09/28/16 05:22 Intake Total 3220 ml 1855 ml 61088 ml Output Total 2810 ml 2320 ml 81675 ml Balance 410 ml -465 ml 23239 ml Intake IV Total 3014 ml 1408 ml 99145 ml Tube Feeding 126 ml 367 ml 631 ml Tube Irrigant 80 ml 80 ml 496 ml Output Urine Total 2800 ml 2300 ml 84499 ml Gastric Drainage Total 10 ml 1145 ml Chest Tube Drainage Total 0 ml 20 ml 275 ml # Bowel Movements 0 2 4 Exam GA: intubated, sedated HEENT: atraumatic, chemosis, ETT/OG in place Heart: RRR, normal S1/S2, no murmur Lungs: equal BS, fine crackles at bases. Abd: soft, moderate distension, decreased BS. Ext: 3+ edema. : severe scrotal swelling, hearn cath in place with yellowish urine. Skin: right IJ in place, crusted papules noted on left shoulder Lab and Diagnostics Result Diagram: 09/28/16 04309/28/16 043 Microbiology CSF positive for VZV MRSA negative Buttock culture positive for staphylococcus aureus Blood cultures 2 out of 4 positive for gram positive cocci Sputum positive for staphylococcus aureus X-Rays, CTs and MRIs X-RAY CHEST ONE VIEW, PORTABLE IMPRESSION: Right thoracostomy tube. No pneumothorax or subcutaneous emphysema. Dictated by: Simona Johnson M.D. on 09/25/2016 at 18:52 Approved by: Simona Johnson M.D. on 09/25/2016 at 18:52 X-RAY CHEST ONE VIEW, PORTABLE IMPRESSION: 1. Support lines and tubes as above. 2. Bilateral pleural effusions, right greater than left. 3. Bilateral lower lung consolidation, increasing involving the right lung base and similar involving the left. Dictated by: Francisco Javier BASSETT Interpreted: Merry Robison MD on 09/23/2016 at 9:45 Transcribed by: JIM on 09/23/2016 at 9:45 Approved by: Merry Robison MD, PhD on 09/23/2016 at 16:56 X-RAY CHEST ONE VIEW, PORTABLE IMPRESSION: 1. Support lines and tubes as above. 2. Abnormal opacity within the right lung and the lung bases consistent with pulmonary edema and/or diffuse bilateral inflammatory process. Recommend clinical correlation and followup. Dictated by: Francisco Javier BASSETT Interpreted: Jammie Drake MD on 09/22/2016 at 9: 13 X-RAY CHEST ONE VIEW, PORTABLE IMPRESSION: Improved aeration of the right lung and decreased pleural effusion when compared with the prior study. Dictated by: Simona Johnson M.D. on 09/27/2016 at 8:30 12-lead ECG Normal sinus rhythm at 116 bpm, left axis deviation present, QTC 478, mild widening of QRS complex (104 ms) Additional Diagnostics DateTimeAnalyzed 04:47:00 -_ pH ____7.315 - 7.350 7.450 pCO2 ___35.8__ -mmHg 35.0 45.0 pO2 ___72.4__ -mmHg 69.0 116 HCO3- ___17.7__ -mmol/L Assessment & Plan 1. DANY on CKD due to nonoliguric ATN cause of ATN is rather multifactorial: sepsis, medications. with anasarca, increased total body water. 2. Septic shock. 3. Disseminated zoster. 4. Staphylococcus bacteremia. 5. Diuretic-induced hypokalemia. 6. Metabolic acidosis 7. Hyperphosphatemia. 8. h/o CLL. Plan: continue IV albumin and IV lasix. replace KCL, recheck K level at 1200. add fosrenol 500 mg via tube TID. decrease sodium bicarb 650 via tube BID. GI Prophylaxis: H2 germaine VTE Prophylaxis: Sub-Q Heparin (Unfractionated) VTE Mechanical Devices: Intermittant Pneumatic CD Resuscitation Status: CPR: Attempt Resuscitation Susan Ross MD Sep 28, 2016 11:53
[2016-09-28] MEDS: Lanthanum Carbonate 500 mg Chewable Tablet TUBE SCH ×2 (13:25→17:33)
--- NOTE | 2016-09-28 15:14 | NUR ---
NUTRITION FOLLOW-UP ASSESS: 76 YO male admitted to CCU with acute hypoxic respiratory failure, severe sepsis, MSSA pneumonia and disseminated zoster with meningoencephalitis. Pt is ventilator dependent and experiencing renal failure. He is significantly fluid overloaded, requiring lasix for diuresis. Pt started on Fosrenol to help lower elevated phosphate levels. PMHX: CLL, HTN, hypercholesterolemia, GERD, cataracts, COPD LABS Reviewed. K 2.7, BUN 103, Land Surveyor 3.72, Alb 2.4, Gluc 109, Ca 6.4, Phos 6.9 MEDS: Reviewed. Fentanyl, Pressor, Fosrenol GI: BM x 2 (09/28) SKIN: Mario 10, Disseminated zoster, non-stageable pressure injury on his left ischium that is 5 cm L x 3 cm W and flush CURRENT WT: 140.3 kg BMI: 47.0 kg/m2 ADMIT WT: 116kg IBW: 70kg NUTRITION SUPPORT: Jevity 1.5 @ 50ml/hr. EST. NEEDS: BMI, VENT (based on admit wt) Kcals: 2320-2550kcal/day (20-22kcal/kg) Pro: 105-120g/day (1.5-1.8g/kg IBW) Fluid: 2400 ml/day (~1 ml/kcal/d) NUTRITION DIAGNOSIS: 1) Inadequate oral intake related to decreased ability to consume sufficient energy as evidenced by current vent / NPO status - PERSISTS. NUTRITION INTERVENTION: 1) Recommend changing TF formula to Nepro d/t elevated phosphorous levels. Start Nepro @ 40 ml/hr. Once tolerated, advance by 10 ml q 6 hrs until reach goal rate of 60 ml/hr to provide 2,485 kcal and 112 g protein (100% estimated needs). Fluid flush 40ml q 4 hrs. Signed orders were placed in chart. MONITOR / EVAL: Enteral feeding advance / tolerance, vent status, wt, labs, GI, POC, nutrition status. Will continue to monitor per high nutrition risk guidelines. Addendum: 09/28/16 at [address] Student documentation reviewed and I agree with above note. DHG. Addendum: 09/29/16 at [address] TF order not changed. Phosphorous continues to be high but is decreasing. Potassium remains low but is increasing. Will continue on Jevity 1.5. Rate continues to increase towards goal. Addendum: 09/29/16 at [address] I have read and agree with above student documentation. Rosario Miller
--- NOTE | 2016-09-28 15:59 | PCM.PNMED ---
Subjective Date of Service Sep 28, 2016 Amy Villegas is a 76-year-old male with CLL currently on chemotherapy with past medical history significant for likely COPD, recent visit to [facility] in [place], and ongoing hypertension directly transferred to [facility] from [facility] due to acute septic shock secondary to presumed aspiration pneumonia. Hospital day 8. Overnight: Patient continued on amiodarone drip. Norepinephrine restarted due to MAPs < 60 overnight. Today: Patient remains intubated and sedated. Norepinephrine at 0.04 maintaining MAPs > 60. Fentanyl and versed gtt for sedation. Amiodarone drip continued will be discontinued at 48 hours. ROS is not obtainable. Exam Vital Signs Vital Sign - Last Date Time Temp Pulse Resp B/P Pulse Ox O2 Delivery O2 Flow Rate FiO2 09/28/16 06:15 91 55 09/28/16 04:40 85 142/54 09/28/16 04:00 Ventilator 09/28/16 04:00 36.5 26 Intake and Output 09/27/16 09/27/16 09/28/16 Cumulative From/Thru 15:00 23:00 07:00 09/21/16 19:30 - 09/28/16 05:22 Intake Total 3220 ml 1855 ml 83665 ml Output Total 2810 ml 2320 ml 21209 ml Balance 410 ml -465 ml 58213 ml Intake IV Total 3014 ml 1408 ml 53543 ml Tube Feeding 126 ml 367 ml 631 ml Tube Irrigant 80 ml 80 ml 496 ml Output Urine Total 2800 ml 2300 ml 98633 ml Gastric Drainage Total 10 ml 1145 ml Chest Tube Drainage Total 0 ml 20 ml 275 ml # Bowel Movements 0 2 4 Exam Gen: Intubated and sedated, anasarca, two point restraints in the CCU. HEENT: PERRLA, corneal edema, large neck, R IJ in place. Cardio: Regular rate and rhythm, no murmurs noted. Respiratory: Faint crackles in bilateral bases. Mechanically ventilated. Right chest tube in place with serosanguinous fluid. Abdomen: Soft, nontender, nondistended, normal bowel sounds. : Prado in place. Scrotal edema. Skin: Shingles on the left shoulder anteriorly and superiorly, some healing, other blisters still open. Extremities: Lower extremity edema and anasarca. Neurologic: Patient sedated. Psych: Patient sedated. Lab and Diagnostics Result Diagram: 09/28/1642909/28/16429 Microbiology CSF positive for VZV MRSA negative Buttock culture positive for staphylococcus aureus Blood cultures 2 out of 4 positive for gram positive cocci Sputum positive for staphylococcus aureus X-Rays, CTs and MRIs X-RAY CHEST ONE VIEW, PORTABLE IMPRESSION: Right thoracostomy tube. No pneumothorax or subcutaneous emphysema. Dictated by: Simona Johnson M.D. on 09/25/2016 at 18:52 Approved by: Simona Johnson M.D. on 09/25/2016 at 18:52 X-RAY CHEST ONE VIEW, PORTABLE IMPRESSION: 1. Support lines and tubes as above. 2. Bilateral pleural effusions, right greater than left. 3. Bilateral lower lung consolidation, increasing involving the right lung base and similar involving the left. Dictated by: Francisco Javier BASSETT Interpreted: Merry Robison MD on 09/23/2016 at 9:45 Transcribed by: JIM on 09/23/2016 at 9:45 Approved by: Merry Robison MD, PhD on 09/23/2016 at 16:56 X-RAY CHEST ONE VIEW, PORTABLE IMPRESSION: 1. Support lines and tubes as above. 2. Abnormal opacity within the right lung and the lung bases consistent with pulmonary edema and/or diffuse bilateral inflammatory process. Recommend clinical correlation and followup. Dictated by: Francisco Javier BASSETT Interpreted: Jammie Drake MD on 09/22/2016 at 9: 13 X-RAY CHEST ONE VIEW, PORTABLE IMPRESSION: Improved aeration of the right lung and decreased pleural effusion when compared with the prior study. Dictated by: Simona Johnson M.D. on 09/27/2016 at 8:30 12-lead ECG Normal sinus rhythm at 116 bpm, left axis deviation present, QTC 478, mild widening of QRS complex (104 ms) Additional Diagnostics DateTimeAnalyzed 06:07:00 pH ____7.313 - pCO2 ___44.7__ -mmHg pO2 ___42.2__ -mmHg HCO3- ___22.0__ -mmol/L Assessment & Plan Magdaleno Villegas is a 76-year-old male with CLL currently on chemotherapy with past medical history significant for likely COPD, recent visit to [facility] in [place], and ongoing hypertension directly transferred to [facility] from [facility] due to acute septic shock secondary to presumed aspiration pneumonia. Hospital day 8. 1. Severe sepsis with shock, present on admission, active. -Etiology likely due to aspiration pneumonia versus decubitus ulcer on his buttocks or disseminated shingles. There is overall concern about the severity of illness of this patient as he is immunocompromised, on current chemotherapy for CLL. -At [facility] patient became hypotensive and unresponsive to fluids and was started on three pressors and transferred to [facility]. -On admission here patient tachycardic, pro-calcitonin 21.82, lactic acid of 4.8 (lactic acid at [facility] was 1.4). -Titrated off phenylephrine and vasopressin. Continues on norepinephrine at 0.04. -Blood cultures 2 out of 4 positive for gram positive cocci. -Lumbar puncture completed results in #3. -MRSA screen negative. Viral PCR negative. Cryptococcus antigen negative. Legionella and strep pneumonia antigen negative. -Dr. Ritter consulted, appreciate the expertise. 2. Staphylococcus bacteremia, present on admission active. - Blood cultures 2 out of 4 positive. - Repeat blood cultures drawn with no growth on 09/27. - Antibiotics switched to nafcillin continuos infusion on 09/24. To be continue until REGINALD can be completed or [address] - Dr. Ritter consulted, appreciate time and expertise. 3. Disseminated zoster, present on admission, active. -Evidence of multiple lesions in multiple dermatomes -Patient has encephalitis, hepatitis, and pneumonitis secondary to disseminated zoster -Continue on IV acyclovir, dose adjusted for renal failure by Dr. Ritter -Lumbar puncture with high opening pressure. CSF clear, WBC 19, RBC 2, Mononuclear WBCs 100, Polynuclear WBCs 0, Glucose 75, Protein 58. -Dr. Ritter consulted, appreciate the expertise. 4. Acute hypoxic respiratory failure, present on admission, active. -Patient presented with severe hypoxia and was requiring 100% FiO2, 12 of PEEP, respiratory rate of 35, and tidal volumes were initially 600 mL but was quickly taken down to 470 mL. -Chest tube placed 09/25 due to hypoxemia secondary to large pleural effusion. -Patient also has suspected underlying COPD which will complicate his pulmonary course. -Ventilator management per ICU team, appreciate the expertise 5. Lactic acidosis, present on admission, active. -Etiology is likely infectious but patient's CLL likely a contributing factor. -Lactic acid 4.8 on admission. -Will continue to monitor daily. 6. Acute kidney injury, present on admission, worsening -Patient presented to [facility] with a creatinine of 0.8, however over the subsequent days prior to his transfer here he was having a slow increase in his creatinine up to 1.6 and after pressure support his creatinine on arrival here was 2.21. -This acute kidney injury is likely due to hypoperfusion/prerenal secondary to dehydration and excessive pressure support with 2 peripheral vasoconstrictors and Levophed. Likely has a degree of ATN. -IVF stopped due severe anasarca -Albumin 25 mg Q8H. -UOP of 4300 ml over last 24 hours. -Continue to monitor I and O and daily BMP -No indication for dialysis at this time -Nephrology consulted. Appreciate time and expertise. 7. Chronic lymphocytic leukemia, present on admission, currently undergoing chemotherapy. -No records available thus far but patient appears to be on current chemotherapy per family. -Blood counts slightly decreased. Possibly dilutional but will ask Heme/Onc to weigh in. -Neupogen given per Dr. Benavides's recommendations. -Heme/Onc consulted. Appreciate time and expertise. 8. Elevated liver enzymes, present on admission, improving. -Etiology likely multifactorial including disseminated zoster and shock liver. -Liver enzymes trending down. 9. Acute encephalopathy, present on admission, active. -Patient has a recent history of acute confusion with hospital admission and resolution of confusion during those stays. 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 -It is of note that he is also had recent shingles infection that began around the same time as confusion. -At [facility] MRI scan presumably showed PRES syndrome. Records are requested. -Sedation titrated down but continues on Propofol and fentanyl. -Serum cryptococcal antigen negative. -CT head showed no acute intracranial process. -Lumbar puncture with high opening pressure. CSF clear, WBC 19, RBC 2, Mononuclear WBCs 100, Polynuclear WBCs 0, Glucose 75, Protein 58. 10 Decubitus ulcer, present on admission -Wound care consulted. Disposition: Patient remains critically ill and in the CCU. Pain Evaluation: Adequate Pain Control GI Prophylaxis: H2 germaine VTE Prophylaxis: Sub-Q Heparin (Unfractionated) VTE Mechanical Devices: Intermittant Pneumatic CD Resuscitation Status: CPR: Attempt Resuscitation Attending Statement The patient was seen and examined together with Dr. Lama on 09/28/2016 and I agree with the history, exam and plan as outlined in the note above. . MATTHEW LAMA DO Sep 28, 2016 06:39 Coleman Velásquez MD Sep 29, 2016 16:04
--- NOTE | 2016-09-28 16:22 | NUR ---
Remains on vent, appears comfortably sedated. Vent changes per RT, attempting to decrease Fi02. ETT advanced, CXR obtained when found to be dislodged, RR & HR elevated this morning. Norepinephrine restarted at low dose to maintain MAP >60-65. Sinus rhythm on tele, no ectopy. Potassium replacement per MD, will recheck level when rider complete. Afebrile. Large liquid stool X1, held colace and senna this morning. TFs near goal, 80-100ml/4hr residuals. Remains in isolation due to open, weeping vesicles on lower left arm.
--- NOTE | 2016-09-28 17:50 | PCM.PNMED ---
Subjective Date of Service Sep 28, 2016 Subjective PULMONARY/CRITICAL CARE PROGRESS NOTE Overnight: No acute events reported. Reported O2 desats with movements. Increase in FiO2. IAPs 16-17 Today: Remains intubated and sedated. Levophed at 0.04. Amio gtt continues. Versed and fentanyl gtt continue at 4mg and 150mcg, respectively. Vent: Pressure control; FiO2 55, RR24, Vt 420cc Labs: K 2.7, BUN 103Cr 3.72, Ca 6.4, ionized Ca 3.87, PO 6.9, albu 2.4, LA 2.2 Net I/O +27k; 24hUOP 2300mL; continues to have adequate UOP Exam Vital Signs Vital Sign - Last Date Time Temp Pulse Resp B/P Pulse Ox O2 Delivery O2 Flow Rate FiO2 09/28/16 07:58 81 145/62 98 55 09/28/16 04:00 Ventilator 09/28/16 04:00 36.5 26 Intake and Output 09/27/16 09/27/16 09/28/16 Cumulative From/Thru 15:00 23:00 07:00 09/21/16 19:30 - 09/28/16 05:22 Intake Total 3220 ml 1855 ml 89456 ml Output Total 2810 ml 2320 ml 95876 ml Balance 410 ml -465 ml 45495 ml Intake IV Total 3014 ml 1408 ml 46613 ml Tube Feeding 126 ml 367 ml 631 ml Tube Irrigant 80 ml 80 ml 496 ml Output Urine Total 2800 ml 2300 ml 22522 ml Gastric Drainage Total 10 ml 1145 ml Chest Tube Drainage Total 0 ml 20 ml 275 ml # Bowel Movements 0 2 4 Exam General: Intubated and sedated; no acute distress; diffusely edematous HENT: Sclera anicteric; ETT in place, mucus membranes dry; left corneal edema present Neck: Soft, obese, trachea midline by palpation; edematous Cardiac: Regular rate and rhythm; no murmurs appreciated Respiratory: Adequate air flow all ruiz; faint crackles at bases bilaterally; no wheeze appreciated Abdomen: Soft, nontender, nondistended; obese; mild pitting edema present Extremities: BLLE moderate pitting edema from ankles to abdomen; BLUE moderate pitting edema noted distal extremities to arms; soft restraints BLUE in place Lines: R IJ; Left PICC; bandages clean, dry, intact : Prado in place; urine yellow; scrotal edema present Skin: Multiple scabbed, healing lesions noted over lower abdomen and groin; no active bleeding or exudate noted. Additional scabbed lesions noted diffusely over left shoulder anteriorly without active bleeding or exudate, continue to appear dry and healing Neuro: Unable to fully assess secondary to intubation and sedation Psych: Unable to assess at this time secondary to intubation and sedation Lab and Diagnostics Result Diagram: 09/28/1642909/28/16429 Microbiology CSF positive for VZV MRSA negative Buttock culture positive for staphylococcus aureus Blood cultures 2 out of 4 positive for gram positive cocci Sputum positive for staphylococcus aureus X-Rays, CTs and MRIs X-RAY CHEST ONE VIEW, PORTABLE IMPRESSION: Right thoracostomy tube. No pneumothorax or subcutaneous emphysema. Dictated by: Simona Johnson M.D. on 09/25/2016 at 18:52 Approved by: Simona Johnson M.D. on 09/25/2016 at 18:52 X-RAY CHEST ONE VIEW, PORTABLE IMPRESSION: 1. Support lines and tubes as above. 2. Bilateral pleural effusions, right greater than left. 3. Bilateral lower lung consolidation, increasing involving the right lung base and similar involving the left. Dictated by: Francisco Javier BASSETT Interpreted: Merry Robison MD on 09/23/2016 at 9:45 Transcribed by: JIM on 09/23/2016 at 9:45 Approved by: Merry Robison MD, PhD on 09/23/2016 at 16:56 X-RAY CHEST ONE VIEW, PORTABLE IMPRESSION: 1. Support lines and tubes as above. 2. Abnormal opacity within the right lung and the lung bases consistent with pulmonary edema and/or diffuse bilateral inflammatory process. Recommend clinical correlation and followup. Dictated by: Francisco Javier BASSETT Interpreted: Jammie Drake MD on 09/22/2016 at 9: 13 X-RAY CHEST ONE VIEW, PORTABLE IMPRESSION: Improved aeration of the right lung and decreased pleural effusion when compared with the prior study. Dictated by: Simona Johnson M.D. on 09/27/2016 at 8:30 12-lead ECG Normal sinus rhythm at 116 bpm, left axis deviation present, QTC 478, mild widening of QRS complex (104 ms) Additional Diagnostics DateTimeAnalyzed 04:47:00 -_ pH ____7.315 - 7.350 7.450 pCO2 ___35.8__ -mmHg 35.0 45.0 pO2 ___72.4__ -mmHg 69.0 116 HCO3- ___17.7__ -mmol/L Assessment & Plan PULMONARY/CRITICAL CARE CONSULT NOTE - Hospital day 7 - Ventilator day 7 Mr. Vlilegas was emergently [place] [facility] [place] severe sepsis likely secondary to aspiration PNA. He required intubation and sedation, fluid resuscitation, use of pressor agents, and paralytics. He was stabilized in the CCU, with pressor weaning, and continued ventilatory support. Infectious disease has been consulted to evaluate the source of infection, including the disseminated VZV. Chart review reveals multiple recent hospitalizations at [place] and [facility] within recent days prior to this admission for reported AMS. Imaging was performed at these facilities, and requests were placed to push images to our system and to obtain records. He currently remains stable in the CCU intubated and sedated receiving fluids, pressors, and antibiotics. Repeat CT 09/22 did not reveal any acute pathologies. Echo completed 09/22, was a difficult study, but LV was grossly unremarkable with function, and RV was mildly dilated, but unremarkable in function. Valves were not well visualized. CSF PCR confirmed the presence of zoster. S. aureus has been detected in sputum , blood, and buttock lesion, indicating a staph bacteremia; Bacteroides was found within buttock lesion as well. Infectious disease consulted and following. Nephrology was consulted to evaluate kidney function and fluid status. Recent decrease in Hb/acute anemia may be indicative of dilution. Chest tube was urgently placed 09/25 secondary to rapidly progressing hypoxemia due to enlarging effusion. Estimated 1-2L drained upon tube placement, fluid yellow/ clear in color. Lesions developed on left wrist 09/28; it is questionable whether these lesions are indicative of ongoing disseminated zoster, or rather irritation from restraint placement. Will monitor for evolution overnight. Contact and respiratory precautions remain in place at this time. Assessments - Acute hypoxemic respiratory failure - Severe sepsis likely secondary to aspiration PNA, bacteremia, and disseminated zoster - Suspected aspiration PNA - Disseminated zoster with meningoencephalitis - DANY - Normocytic normochromic anemia, acute - Metabolic acidosis with respiratory acidosis; AG 18 Plan: - Continue mechanical ventilation; assess for stability for SBT - Keep chest tube in place at this time; consider removal when extubated - Decrease sedation as tolerated as day progresses; continue to advise against propofol - Consider Zyprexa 10mg ODT q12h prn for agitation/restlessness - Insulin gtt on standby to maintain BG < 180 - Continue to wean pressors as tolerated - ABGs in am - Upright CXR in am - Abx/antivirals per ID - Neupogen per oncology - Diuretics, albumin, bicarb per nephrology - Continue hep SQ at this time; with monitoring of platelets; caution when platelets fall < 50K - DVT: Hep q8 - GI: H2B Thank you for this consult, we will happily follow along with you at this time. If you have any additional concerns or would like us to assist in any other way , please do not hesitate to ask. Total time: 60 minutes Pain Evaluation: Adequate Pain Control GI Prophylaxis: H2 germaine VTE Prophylaxis: Sub-Q Heparin (Unfractionated) VTE Mechanical Devices: Intermittant Pneumatic CD Resuscitation Status: CPR: Attempt Resuscitation Attending Statement The patient was seen and examined together with Dr. Allred on 09/28/2016 and I agree with the history, exam and plan as outlined in the note above. Alfreda Allred DO Sep 28, 2016 09:19 Gerardo Thomas MD Oct 17, 2016 13:31
[2016-09-28] MEDS: Midazolam 100 mg/100 mL Premix IV PRN (17:59)
[2016-09-28] MEDS: LacriLube S.O.P. 3.5 Gm Ophthalmic Ointment BOTH_EYES SCH (23:57)
[2016-09-28] MEDS: Filgrastim 480 mCg/1.6 mL Inj SUBQ SCH (23:57)
[2016-09-29] VITALS (12 sets, daily range): BP systolic 132–201; BP diastolic 54–72; PULSE 97–116; RESP 24–25; O2SAT 91–97
[2016-09-29] MEDS ORDERED: KCl 40 mEq/100 mL (CENTRAL) 40 MEQ in IV Premix 1 EACH IV ONE (00:15)
[2016-09-29] MEDS: fentaNYL 2,500 mCg/250 mL 2,500 MCG in IV Premix 1 EACH IV PRN ×2 (04:40→20:00)
[2016-09-29] MEDS: Chlorhexidine 0.12% 15 mL Oral Solution MT SCH ×5 (04:40→19:59)
[2016-09-29] MEDS: Insulin Human REGular 300 Unit/3 mL Inj SUBQ SCH ×4 (05:00→22:29)
[2016-09-29 05:03] LABS: Mean Corpuscular Hemoglobin 28.5 pg (27.0-35.0); Mean Corpuscular Volume 82.1 fL (81-100); Platelet Count 68 bil/L (150-400)
--- NOTE | 2016-09-29 05:22 | ABG ---
DateTimeAnalyzed 05:17:00 -_ pH ____7.362 - pCO2 ___40.3__ -mmHg pO2 ___42.6__ -mmHg HCO3- ___22.3__ -mmol/L ABE ___-2.3__ -mmol/L tHb ____7.5__ -g/dL O2Hb ___75.1__ -% COHb ____1.2__ -% MetHb ____1.2__ -% sO2 ___76.9__ -% FIO2 ___50.0__ -% PEEP ___16.0__ -cmH2O Set_RR ___24.0__ -b/min Vt __611.0__ -L Drawn By RN - Oxygen Device 2 PRESSURE CONTROL 18 -_ Date/Time Notified____ 05:21:00 -_ Spontaneous_RR ___32.0__ -b/min Oxygen Device 1 VENTILATOR - Notified By BLF - Notified Whom JUDITH WESTON RN -___ B 759 -mmHg tO2 ____7.9__ -Vol% Jeevan test N/A -
[2016-09-29 05:27] LABS: Magnesium 1.9 mg/dL (1.6-2.6); Phosphorus 6.1 mg/dL (2.5-4.9)
[2016-09-29 05:33] LABS: BASOPHILS % (AUTO) 0 % (0-3); EOSINOPHILS % (AUTO) 2 % (0-5); MONOCYTES % (AUTO) 6 % (4-12); NEUTROPHILS % (AUTO) 74 % (40-74)
[2016-09-29] MEDS ORDERED: KCl 40 mEq/100 mL (CENTRAL) 20 MEQ in IV Premix 1 EACH IV ONE ×2 (06:35→16:30)
[2016-09-29] MEDS ORDERED: Potassium Chloride 20 mEq/15 mL 15mL Oral Soln PO ONE (06:35)
--- NOTE | 2016-09-29 07:27 | NUR ---
Vasopressors off Pt rested well on the vent with sedation over night. Sedation was increased slightly over night due to 'bucking' the vent. Remained on same vent settings over night. Pt had multiple BM's over night and an FMS was placed to protect buttock skin including the pressure ulcer. Prado draining adequate urine. Labs appear stable this morning. K+ is a little low and will be replaced. Handoff report given to Hillary Prado RN.
[2016-09-29] MEDS: Senna Leaf Extract 528 mg/15 mL Syrup PO SCH ×2 (08:30→19:59)
[2016-09-29] MEDS: Nafcillin Inj 12,000 MG in Dextrose 5% 1,000 ML IV SCH (08:37)
[2016-09-29] MEDS: Famotidine Inj 20 MG in IV Premix 1 EACH IV SCH (08:43)
[2016-09-29] MEDS: ACYCLOVIR IV SCH (08:44)
[2016-09-29] MEDS: SODIUM CHLORIDE 0.9% IV SCH (08:44)
[2016-09-29] MEDS: metroNIDAZOLE Inj 1,000 MG in IV Premix 1 EACH IV SCH ×2 (08:46→19:58)
[2016-09-29] MEDS: LacriLube S.O.P. 3.5 Gm Ophthalmic Ointment BOTH_EYES SCH ×2 (08:55→19:58)
[2016-09-29] MEDS: Lanthanum Carbonate 500 mg Chewable Tablet TUBE SCH ×3 (08:59→17:09)
--- NOTE | 2016-09-29 09:10 | DRSVH ---
PROCEDURE: X-RAY CHEST ONE VIEW, PORTABLE ([id number]) INDICATIONS: intubated TECHNIQUE: One view of the chest was acquired. COMPARISON: [facility], CR, XR CHEST 1VW (PORTABLE), 09/28/2016, 9:59. FINDINGS: Surgical changes and devices: ETT tip projected 5 cm above the eh. Stable positioning of a nasog astric tube, right IJ CVL, right pleural drain and left PICC. Lungs and pleura: Pulmonary edema as well as mid/basilar patchy airspace opacities redemonstrated. S mall pleural effusions. No pneumothorax. Mediastinum: Mediastinal contours appear normal. Heart size is normal. Bones and chest wall: No suspicious bony lesions. Overlying soft tissues appear unremarkable. IMPRESSION: 1. Stable support lines and tubes. 2. Pulmonary edema and/or pneumonia versus atelectasis involving the lung bases not significantly yi nged. 3. Small pleural effusions redemonstrated. Dictated by: Francisco Javier Antonio RR Interpreted: Adalberto Barker MD on 09/29/2016 at 9:08 Transcribed by: AUSTIN on 09/29/2016 at 9:10 Approved by: Adalberto Barker M.D. on 09/30/2016 at 16:19
--- NOTE | 2016-09-29 09:17 | PCM.PNMED ---
Subjective Date of Service Sep 29, 2016 Amy Villegas is a 76-year-old male with CLL currently on chemotherapy with past medical history significant for likely COPD, recent visit to [facility] in [place], and ongoing hypertension directly transferred to [facility] from [facility] due to acute septic shock secondary to presumed aspiration pneumonia. Hospital day 9. Overnight: No acute events. Norepinephrine was turned off at 2000. Continues on fentanyl and versed gtt for sedation. Urine output of 1300 mls overnight. Today: Patient remains intubated and sedated. Fentanyl and versed gtt for sedation. PEEP decreased. Potassium being replaced. Tube feeds at goal with minimal residuals. ROS is not obtainable. Exam Vital Signs Vital Sign - Last Date Time Temp Pulse Resp B/P Pulse Ox O2 Delivery O2 Flow Rate FiO2 09/29/16 05:13 101 167/63 97 50 09/29/16 04:30 Ventilator 09/29/16 04:30 37.2 24 Intake and Output 09/28/16 09/28/16 09/29/16 Cumulative From/Thru 15:00 23:00 07:00 09/21/16 19:30 - 09/29/16 05:00 Intake Total 2146 ml 43530 ml Output Total 2470 ml 23209 ml Balance -324 ml 45456 ml Intake Oral 60 ml 60 ml IV Total 1416 ml 46004 ml Tube Feeding 550 ml 1181 ml Tube Irrigant 120 ml 616 ml Output Urine Total 1950 ml 98733 ml Stool Total 300 ml 300 ml Gastric Drainage Total 220 ml 1365 ml Chest Tube Drainage Total 275 ml # Bowel Movements 1 5 Exam Gen: Intubated and sedated, anasarca, no restraints. HEENT: PERRLA, corneal edema, large neck, R IJ in place. Cardio: Regular rate and rhythm, no murmurs noted. Respiratory: Faint crackles in bilateral bases. Mechanically ventilated. Right chest tube in place with serosanguinous fluid. Abdomen: Firm, distended, normal bowel sounds. : Prado in place. Scrotal edema. Skin: Shingles on the left shoulder anteriorly and superiorly currently crusted. Lesions on bilaterally wrist secondary to restraints. Extremities: Lower extremity edema and anasarca. Neurologic: Patient sedated. Psych: Patient sedated. Lab and Diagnostics Lactic Acid 2.3 Calcium 7.0 Phosphorus 6.1 Magnesium 1.9 Albumin 3.0 Result Diagram: 09/29/165 09/29/16454 Microbiology CSF positive for VZV MRSA negative Buttock culture positive for staphylococcus aureus Blood cultures 2 out of 4 positive for gram positive cocci Sputum positive for staphylococcus aureus X-Rays, CTs and MRIs X-RAY CHEST ONE VIEW, PORTABLE IMPRESSION: Right thoracostomy tube. No pneumothorax or subcutaneous emphysema. Dictated by: Simona Johnson M.D. on 09/25/2016 at 18:52 Approved by: Simona Johnson M.D. on 09/25/2016 at 18:52 X-RAY CHEST ONE VIEW, PORTABLE IMPRESSION: 1. Support lines and tubes as above. 2. Bilateral pleural effusions, right greater than left. 3. Bilateral lower lung consolidation, increasing involving the right lung base and similar involving the left. Dictated by: Francisco Javier BASSETT Interpreted: Merry Robison MD on 09/23/2016 at 9:45 Transcribed by: JIM on 09/23/2016 at 9:45 Approved by: Merry Robison MD, PhD on 09/23/2016 at 16:56 X-RAY CHEST ONE VIEW, PORTABLE IMPRESSION: 1. Support lines and tubes as above. 2. Abnormal opacity within the right lung and the lung bases consistent with pulmonary edema and/or diffuse bilateral inflammatory process. Recommend clinical correlation and followup. Dictated by: Francisco Javier BASSETT Interpreted: Jammie Drake MD on 09/22/2016 at 9: 13 X-RAY CHEST ONE VIEW, PORTABLE IMPRESSION: Improved aeration of the right lung and decreased pleural effusion when compared with the prior study. Dictated by: Simona Johnson M.D. on 09/27/2016 at 8:30 12-lead ECG Normal sinus rhythm at 116 bpm, left axis deviation present, QTC 478, mild widening of QRS complex (104 ms) Additional Diagnostics DateTimeAnalyzed 05:17:00 -_ pH ____7.362 - pCO2 ___40.3__ -mmHg pO2 ___42.6__ -mmHg HCO3- ___22.3__ -mmol/L Assessment & Plan Magdaleno Villegas is a 76-year-old male with CLL currently on chemotherapy with past medical history significant for likely COPD, recent visit to [facility] in [place], and ongoing hypertension directly transferred to [facility] from [facility] due to acute septic shock secondary to presumed aspiration pneumonia. Hospital day 9. 1. Severe sepsis with shock, present on admission, improving. -Etiology multifactorial including disseminated zoster, staph bacteremia, and decubitus ulcer on his buttocks. -At [facility] patient became hypotensive and unresponsive to fluids and was started on three pressors and transferred to [facility]. -On admission here patient tachycardic, pro-calcitonin 21.82, lactic acid of 4.8 (lactic acid at [facility] was 1.4). -Norepinephrine titrated off on 09/28 at 2000. -Blood cultures and lumbar puncture as below. -Dr. Ritter consulted, appreciate the expertise. 2. Staphylococcus bacteremia, present on admission active. - Blood cultures 2 out of 4 positive. - Repeat blood cultures drawn with no growth on 09/27. - Antibiotics switched to nafcillin continuos infusion on 09/24. To be continued until REGINALD can be completed or 6 [address] - Dr. Ritter consulted, appreciate time and expertise. 3. Disseminated zoster, present on admission, active. -Evidence of multiple lesions in multiple dermatomes. Currently crusted. -Patient has encephalitis, hepatitis, and pneumonitis secondary to disseminated zoster -Continue on IV acyclovir, dose adjusted for renal failure by Dr. Ritter -Lumbar puncture with high opening pressure. CSF clear, WBC 19, RBC 2, Mononuclear WBCs 100, Polynuclear WBCs 0, Glucose 75, Protein 58. -Dr. Ritter consulted, appreciate the expertise. 4. Acute hypoxic respiratory failure, present on admission, active. -Patient presented with severe hypoxia and was requiring 100% FiO2, 12 of PEEP, respiratory rate of 35, and tidal volumes were initially 600 mL but was quickly taken down to 470 mL. -Chest tube placed 09/25 due to hypoxemia secondary to large pleural effusion. -Patient also has suspected underlying COPD which will complicate his pulmonary course. -Ventilator management per ICU team, appreciate the expertise 5. Lactic acidosis, present on admission, active. -Etiology is likely infectious but patient's CLL likely a contributing factor. -Lactic acid 4.8 on admission. Currently 2.3. -Will continue to monitor daily. 6. Acute kidney injury, present on admission, improving. -Patient presented to [facility] with a creatinine of 0.8, however over the subsequent days prior to his transfer here he was having a slow increase in his creatinine up to 1.6 and after pressure support his creatinine on arrival here was 2.21. -This acute kidney injury is likely due to hypoperfusion/prerenal secondary to dehydration and excessive pressure support with 2 peripheral vasoconstrictors and Levophed. Likely has a degree of ATN. -IVF stopped due severe anasarca -Albumin 25 mg Q8H. -UOP 1300 ml overnight. -Continue to monitor I and O and daily BMP -No indication for dialysis at this time -Nephrology consulted. Appreciate time and expertise. 7. Chronic lymphocytic leukemia, present on admission, undergoing oral chemotherapy prior to hospitalization. -No records available thus far but patient appears to be on current chemotherapy per family. -Neupogen given per Dr. Benavides's recommendations. -Heme/Onc consulted. Appreciate time and expertise. 8. Elevated liver enzymes, present on admission, improving. -Etiology likely multifactorial including disseminated zoster and shock liver. -Liver enzymes trending down. 9. Acute encephalopathy, present on admission, active. -Patient has a recent history of acute confusion with hospital admission and resolution of confusion during those stays. -Etiology likely secondary to sepsis, infection, and VZV encephalitis. -Sedation titrated down but continues on fentanyl and versed. -CT head showed no acute intracranial process. -Lumbar puncture with high opening pressure. CSF clear, WBC 19, RBC 2, Mononuclear WBCs 100, Polynuclear WBCs 0, Glucose 75, Protein 58. 10. Decubitus ulcer, present on admission, active. -Wound culture grew bacteroides fragillis. -Metronidazole 1000 mg Q12H. -Wound care consulted. Disposition: Patient remains critically ill and in the CCU. Pain Evaluation: Adequate Pain Control GI Prophylaxis: H2 germaine VTE Prophylaxis: Sub-Q Heparin (Unfractionated) VTE Mechanical Devices: Intermittant Pneumatic CD Resuscitation Status: CPR: Attempt Resuscitation Attending Statement The patient was seen and examined together with Dr. Lama on 09/29/2016 and I agree with the history, exam and plan as outlined in the note above. . MATTHEW LAMA DO Sep 29, 2016 06:41 Coleman Velásquez MD Sep 29, 2016 16:05
--- NOTE | 2016-09-29 09:32 | PROG NOTE ---
[address] [address] PROGRESS NOTE PATIENT: BRITTNEY CASILLAS : 1940 MR#: [id number] ADMIT: 09/21/2016 JOB ID: [id number] DATE: 09/29/2016 INFECTIOUS DISEASE FOLLOWUP NOTE: REASON FOR FOLLOWUP: Disseminated varicella zoster virus infection, and Staph aureus septic shock. INTERVAL HISTORY: The patient remains intubated and sedated. No communication with him is possible but I did discuss the case at the bedside with multiple members of the ICU team, as well as the Nursing staff. PHYSICAL EXAMINATION: Reveals a critically ill gentleman lying supine in his ICU bed. He is intubated and sedated. Temperature 37.2. He has been consistently afebrile since the , which is now four days ago. His pulse is running right around 100, respiratory rate in the mid 20s on the ventilator. Blood pressure 169/68. He is off all vasopressor agents. He is saturating 96% today on 50% FiO2. The eyes are without notable abnormality. There is no scleral icterus. The oral endotracheal tube and oral gastric tube in good position. Central lines are in good position as well. The lungs are notable for some decreased breath sounds at the bases and a few crackles. Cardiac tones regular but distant. Abdomen is slightly distended. The skin lesions were carefully examined. The zoster lesions on the left shoulder have completely crusted, and the scattered lesions across the face, upper torso and especially the lower abdomen and pelvic area have crusted or essentially resolved. There are some new erythematous lesions present on both wrists but I believe these represent trauma from restraints rather than zoster lesions, as they lack any vesicular type appearance, and the appearance of such lesions this late in the course of high-dose IV acyclovir would be rather atypical. The patient's scrotum is grossly distended and, in fact, worse than yesterday. Prado catheter is present. The lower extremity edema is 3+, and perhaps a little worse than yesterday. Extremities are well perfused. LABORATORIES: Include white count 8300, platelet count 68,000. He is still with a left shift, 7% bands, a few myelocytes and metamyelocytes, and now blast cells have appeared in the peripheral smear. His creatinine is 3.3. The acyclovir level is pending. Cryptococcal antigen negative. QuantiFERON Gold indeterminate. Micro studies include a sputum from yesterday which shows moderate polys without a predominant organism. Culture is pending. Blood cultures from the and the are negative showing that our staph bacteremia is resolved. Spinal fluid PCR was positive for VZV. IMAGING: Yesterday's chest x-ray showed decreasing pulmonary infiltrates. IMPRESSION: Overall, the patient is a bit better, as he is off vasopressor agents and able to maintain his own blood pressure with an excellent urine output. His creatinine is slowly improving and so, I do not think our acyclovir is having a negative impact on his renal function, and he is not requiring dialysis. His zoster skin lesions have resolved, as his LFTs have normalized, as he previously had extensive involvement of both skin and liver with the varicella-zoster virus process. How his brain is doing with the varicella-zoster virus is not known, as he is intubated and sedated at this point. Staphylococcus sepsis also appears improved with respect to his blood pressure and the fact we now have a series of negative blood cultures. RECOMMENDATIONS: 1. Will continue with acyclovir for the next few days as is indicated in yesterday's note, and a stop order is already in for October 02 unless something changes. 2. Will continue with nafcillin with an intended course of six weeks or so unless we get a REGINALD which demonstrates normal valves. 3. Will continue with Flagyl, as the patient does have a decubitus ulcer, which likely involves some anaerobes, and the total duration on the Flagyl could probably be about 10 days taking it through October 04, and I have placed a stop order for this. 4. This case discussed extensively with the ICU team.
[2016-09-29] MEDS: Albumin 25% 25 GM in IV Premix 1 EACH IV SCH (10:09)
[2016-09-29] MEDS: Furosemide 10 mg/mL 10 mL Inj IVPUSH SCH ×2 (10:14→19:58)
[2016-09-29] MEDS: Heparin 5,000 Unit/mL Inj SUBQ SCH ×2 (10:15→16:55)
--- NOTE | 2016-09-29 11:15 | PCM.PNMED ---
Subjective Date of Service Sep 29, 2016 Subjective PULMONARY/CRITICAL CARE PROGRESS NOTE Overnight: No acute events reported. Weaned off levophed, no pressor agents required Today: Remains off pressors. Afebrile. New lesions noted over bilateral wrists not suspected for VZV. No acute distress. Notably fluid overloaded. Labs: Na 145, K 3.2, BUN 100, Cr 3.30, LA 2.3; albu 3.0, Mg 1.9; Net IO (+) [address]6614, 24h UOP 4250mL Vent: Pressure control; FiO2 50, PEEP 16; Chest tube remains in place with nil output Exam Vital Signs Vital Sign - Last Date Time Temp Pulse Resp B/P Pulse Ox O2 Delivery O2 Flow Rate FiO2 09/29/16 07:51 104 169/60 96 50 09/29/16 04:30 Ventilator 09/29/16 04:30 37.2 24 Intake and Output 09/28/16 09/28/16 09/29/16 Cumulative From/Thru 15:00 23:00 07:00 09/21/16 19:30 - 09/29/16 06:47 Intake Total 2146 ml 2204 ml 18278 ml Output Total 2470 ml 2800 ml 96452 ml Balance -324 ml -596 ml 22270 ml Intake Oral 60 ml 60 ml IV Total 1416 ml 1384 ml 17034 ml Tube Feeding 550 ml 690 ml 1871 ml Tube Irrigant 120 ml 130 ml 746 ml Output Urine Total 1950 ml 2800 ml 17074 ml Stool Total 300 ml 300 ml Gastric Drainage Total 220 ml 1365 ml Chest Tube Drainage Total 275 ml # Bowel Movements 1 2 7 Exam General: Intubated and sedated; no acute distress; diffusely edematous HENT: Sclera anicteric; ETT in place, mucus membranes dry; left corneal edema present Neck: Soft, obese, trachea midline by palpation; edematous Cardiac: Regular rate and rhythm; no murmurs appreciated Respiratory: Adequate air flow all ruiz but faint secondary to habitus; faint crackles at bases bilaterally; no wheeze appreciated Abdomen: Soft, nontender, nondistended; obese; moderate pitting anasarca present Extremities: BLLE moderate pitting edema from ankles to abdomen; BLUE moderate pitting edema noted distal extremities to arms; soft restraints BLUE in place Lines: R IJ; Left PICC; bandages dry, intact : Prado in place; urine yellow; moderate-severe scrotal edema present Skin: Multiple scabbed, healing lesions noted over lower abdomen and groin; no active bleeding or exudate noted. Additional scabbed lesions noted diffusely over left shoulder anteriorly without active bleeding or exudate, continue to appear dry and healing; lesions of bilateral wrists erythematous and weeping, no active bleeding Neuro: Unable to fully assess secondary to intubation and sedation Psych: Unable to assess at this time secondary to intubation and sedation Lab and Diagnostics Result Diagram: 09/29/1645409/29/16454 Microbiology CSF positive for VZV MRSA negative Buttock culture positive for staphylococcus aureus Blood cultures 2 out of 4 positive for gram positive cocci Sputum positive for staphylococcus aureus X-Rays, CTs and MRIs X-RAY CHEST ONE VIEW, PORTABLE IMPRESSION: Right thoracostomy tube. No pneumothorax or subcutaneous emphysema. Dictated by: Simona Johnson M.D. on 09/25/2016 at 18:52 Approved by: Simona Johnson M.D. on 09/25/2016 at 18:52 X-RAY CHEST ONE VIEW, PORTABLE IMPRESSION: 1. Support lines and tubes as above. 2. Bilateral pleural effusions, right greater than left. 3. Bilateral lower lung consolidation, increasing involving the right lung base and similar involving the left. Dictated by: Francisco Javier BASSETT Interpreted: Merry Robison MD on 09/23/2016 at 9:45 Transcribed by: JIM on 09/23/2016 at 9:45 Approved by: Merry Robison MD, PhD on 09/23/2016 at 16:56 X-RAY CHEST ONE VIEW, PORTABLE IMPRESSION: 1. Support lines and tubes as above. 2. Abnormal opacity within the right lung and the lung bases consistent with pulmonary edema and/or diffuse bilateral inflammatory process. Recommend clinical correlation and followup. Dictated by: Francisco Javier BASSETT Interpreted: Jammie Drake MD on 09/22/2016 at 9: 13 X-RAY CHEST ONE VIEW, PORTABLE IMPRESSION: Improved aeration of the right lung and decreased pleural effusion when compared with the prior study. Dictated by: Simona Johnson M.D. on 09/27/2016 at 8:30 12-lead ECG Normal sinus rhythm at 116 bpm, left axis deviation present, QTC 478, mild widening of QRS complex (104 ms) Additional Diagnostics DateTimeAnalyzed 05:17:00 -_ pH ____7.362 - pCO2 ___40.3__ -mmHg pO2 ___42.6__ -mmHg HCO3- ___22.3__ -mmol/L Assessment & Plan PULMONARY/CRITICAL CARE CONSULT NOTE - Hospital day 8 - Ventilator day 8 Mr. Villegas was emergently transferred from [facility] with severe sepsis likely secondary to aspiration PNA. He required intubation and sedation, fluid resuscitation, use of pressor agents, and paralytics. He was stabilized in the CCU, with pressor weaning, and continued ventilatory support. Infectious disease has been consulted to evaluate the source of infection, including the disseminated VZV. Chart review reveals multiple recent hospitalizations at [place] and [facility] within recent days prior to this admission for reported AMS. Imaging was performed at these facilities, and requests were placed to push images to our system and to obtain records. He currently remains stable in the CCU intubated and sedated receiving fluids, pressors, and antibiotics. Repeat CT 09/22 did not reveal any acute pathologies. Echo completed 09/22, was a difficult study, but LV was grossly unremarkable with function, and RV was mildly dilated, but unremarkable in function. Valves were not well visualized. CSF PCR confirmed the presence of zoster. S. aureus has been detected in sputum , blood, and buttock lesion, indicating a staph bacteremia; Bacteroides was found within buttock lesion as well. Infectious disease consulted and following. Nephrology was consulted to evaluate kidney function and fluid status. Recent decrease in Hb/acute anemia may be indicative of dilution. Chest tube was urgently placed 09/25 secondary to rapidly progressing hypoxemia due to enlarging effusion. Estimated 1-2L drained upon tube placement, fluid yellow/ clear in color. Lesions developed on bilateral wrists that appear weeping and erythematous, likely secondary to irritation from restraint and ID bracelet placement. Assessments - Acute hypoxemic respiratory failure - Severe sepsis likely secondary to aspiration PNA, bacteremia, and disseminated zoster - Suspected aspiration PNA - Disseminated zoster with meningoencephalitis - DANY - Normocytic normochromic anemia, acute - Metabolic acidosis with respiratory acidosis; AG 19 Plan: - Continue mechanical ventilation, decreasing PEEP as tolerated; assess for stability for SBT daily - Keep chest tube in place at this time; consider removal when extubated and stabilized - Decrease sedation as tolerated as day progresses; continue to advise against propofol - Consider Zyprexa 10mg ODT q12h prn for agitation/restlessness - Insulin gtt on standby to maintain BG < 180 - Replenish electrolytes prn - ABGs in am - Upright CXR in am - Abx/antivirals per ID - Neupogen per oncology - Diuretics, albumin, bicarb per nephrology; patient in need of fluid management and diuresis, appreciate time and recs - Continue hep SQ at this time; with monitoring of platelets; caution when platelets fall < 50K - DVT: Hep q8 - GI: H2B Thank you for this consult, we will happily follow along with you at this time. If you have any additional concerns or would like us to assist in any other way , please do not hesitate to ask. Total time: 60 minutes Pain Evaluation: Adequate Pain Control GI Prophylaxis: H2 germaine VTE Prophylaxis: Sub-Q Heparin (Unfractionated) VTE Mechanical Devices: Intermittant Pneumatic CD Resuscitation Status: CPR: Attempt Resuscitation Attending Statement The patient was seen and examined together with Dr. Allred on 09/29/2016 and I agree with the history, exam and plan as outlined in the note above. Alfreda Allred DO Sep 29, 2016 11:15 Gerardo Thomas MD Oct 17, 2016 13:38
[2016-09-29] MEDS: Potassium Chloride 20 mEq/15 mL 15mL Oral Soln TUBE SCH ×2 (11:35→17:54)
[2016-09-29 15:08] LABS: Magnesium 1.9 mg/dL (1.6-2.6)
--- NOTE | 2016-09-29 15:56 | NUR ---
GREGORY Verbal Consent with daughter Nayeli OMAYRA Ceja
--- NOTE | 2016-09-29 15:56 | NUR ---
Social Work Note: Continued Discharge Planning Data& Assessment: Pt remains on the vent and pressors. SW spoke with pt daughter Nayeli via phone call to check in and assess for any unmet needs. Pt reflected on the fact pt will most likely require SNF at time of discharge. SW left SNF list, SW phone number and senior resource guide at pt bedside for pt daughter to review later tonight when she arrives. Pt daughter denies any other needs at this time. SW to continue to follow. Plan: Anticipated discharge to SNF when medically ready, if pt medically improves. SNF list provided. Pt daughter denies any other needs at this time. SW to continue to follow. OMAYRA Ceja
--- NOTE | 2016-09-29 16:25 | PCM.PNMED ---
Subjective Date of Service Sep 29, 2016 Subjective off pressors, good UOP. remains edematous. on full ventilation support. Exam Vital Signs Vital Sign - Last Date Time Temp Pulse Resp B/P Pulse Ox O2 Delivery O2 Flow Rate FiO2 09/29/16 15:23 115 201/64 95 50 09/29/16 12:00 Ventilator 09/29/16 04:30 37.2 24 Intake and Output 09/28/16 09/28/16 09/29/16 Cumulative From/Thru 15:00 23:00 07:00 09/21/16 19:30 - 09/29/16 06:47 Intake Total 2146 ml 2204 ml 01535 ml Output Total 2470 ml 2800 ml 94842 ml Balance -324 ml -596 ml 19660 ml Intake Oral 60 ml 60 ml IV Total 1416 ml 1384 ml 96911 ml Tube Feeding 550 ml 690 ml 1871 ml Tube Irrigant 120 ml 130 ml 746 ml Output Urine Total 1950 ml 2800 ml 96564 ml Stool Total 300 ml 300 ml Gastric Drainage Total 220 ml 1365 ml Chest Tube Drainage Total 275 ml # Bowel Movements 1 2 7 Exam GA: intubated, sedated HEENT: atraumatic, chemosis, ETT/OG in place Heart: RRR, normal S1/S2, no murmur Lungs: equal BS, fine crackles at bases. Abd: soft, moderate distension, decreased BS. Ext: 3+ edema. : severe scrotal swelling, hearn cath in place with yellowish urine. Skin: right IJ in place, crusted papules noted on left shoulder Lab and Diagnostics Result Diagram: 09/29/16 0455 09/29/16 1425 Microbiology CSF positive for VZV MRSA negative Buttock culture positive for staphylococcus aureus Blood cultures 2 out of 4 positive for gram positive cocci Sputum positive for staphylococcus aureus X-Rays, CTs and MRIs X-RAY CHEST ONE VIEW, PORTABLE IMPRESSION: Right thoracostomy tube. No pneumothorax or subcutaneous emphysema. Dictated by: Simona Johnson M.D. on 09/25/2016 at 18:52 Approved by: Simona Johnson M.D. on 09/25/2016 at 18:52 X-RAY CHEST ONE VIEW, PORTABLE IMPRESSION: 1. Support lines and tubes as above. 2. Bilateral pleural effusions, right greater than left. 3. Bilateral lower lung consolidation, increasing involving the right lung base and similar involving the left. Dictated by: Francisco Javier BASSETT Interpreted: Merry Robison MD on 09/23/2016 at 9:45 Transcribed by: JIM on 09/23/2016 at 9:45 Approved by: Merry Robison MD, PhD on 09/23/2016 at 16:56 X-RAY CHEST ONE VIEW, PORTABLE IMPRESSION: 1. Support lines and tubes as above. 2. Abnormal opacity within the right lung and the lung bases consistent with pulmonary edema and/or diffuse bilateral inflammatory process. Recommend clinical correlation and followup. Dictated by: Francisco Javier BASSETT Interpreted: Jammie Drake MD on 09/22/2016 at 9: 13 X-RAY CHEST ONE VIEW, PORTABLE IMPRESSION: Improved aeration of the right lung and decreased pleural effusion when compared with the prior study. Dictated by: Simona Johnson M.D. on 09/27/2016 at 8:30 12-lead ECG Normal sinus rhythm at 116 bpm, left axis deviation present, QTC 478, mild widening of QRS complex (104 ms) Additional Diagnostics DateTimeAnalyzed 05:17:00 -_ pH ____7.362 - pCO2 ___40.3__ -mmHg pO2 ___42.6__ -mmHg HCO3- ___22.3__ -mmol/L Assessment & Plan 1. DANY on CKD due to nonoliguric ATN cause of ATN is rather multifactorial: sepsis, medications. with anasarca, increased total body water. high BUN/cr ratio 2. Septic shock. 3. Disseminated zoster. 4. Staphylococcus bacteremia. 5. Diuretic-induced hypokalemia. 6. Metabolic acidosis 7. Hyperphosphatemia. 8. h/o CLL. Plan: d/c IV albumin. double concentrate all IV meds. Meds to be mixed in d5w. Increase lasix to 80 mg IV q12 hr. check fecal occult blood. GI Prophylaxis: H2 germaine VTE Prophylaxis: Sub-Q Heparin (Unfractionated) VTE Mechanical Devices: Intermittant Pneumatic CD Resuscitation Status: CPR: Attempt Resuscitation Susan Ross MD Sep 29, 2016 16:25
[2016-09-29] MEDS ORDERED: Acetaminophen IV 1,000 MG in IV Premix 1 EACH IV ONE (17:40)
[2016-09-29] MEDS: Midazolam 100 mg/100 mL Premix IV PRN (18:01)
--- NOTE | 2016-09-29 19:40 | NUR ---
Stable on current vent settings. Peep decreased to 14 as ordered with saturations 96%. Suctioning for moderate amounts yellow blood streaked secretions via ETT. Chest tube site draining pale serosanguinous fluid, dressing changed 4 times today. Atrium collection device without measurable output. Attempt to wean sedation today resulted in worsening sinus tachycardia and hypertension (please see CCU flowsheet for details), sedation bolused and returned to pre wean rates with VS returning to baseline. Tolerating tube feeds at goal, residual today 15mls. FMS in place with 200ml stool since insertion last night. Family here this evening, questions answered as able. Dr Benavides was able to meet with them and explain the progression of current CLL and risk for future infections. Family would like to meet with Dr Ritter tomorrow and plan to be here for CCU rounds.
--- NOTE | 2016-09-29 20:17 | CCS NOTE ---
[facility] [address] [address] MEDICAL ONCOLOGY OFFICE NOTE PATIENT: BRITTNEY CASILLAS : 1940 MR#: [id number] DATE: 09/21/2016 JOB ID: [id number] DATE: 09/29/2016 SUBJECTIVE: The patient was seen at bedside. He had today his other son as well as daughter and a [id number] at bedside when I met them. His condition remains guarded and he is on advanced life support. He had actually a low-grade temperature this afternoon. He did receive over the weekend Neupogen injection as I had ordered and his leukopenia has resolved. He is now having a normal white count. His white count is now around 8 with a left shift with 1 metamyelocyte as well as a rare blast which is likely an effect from Neupogen in the setting of sepsis. Renal function remains significantly abnormal. On exam, his rash of zoster is drying out in the shoulder area. 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 He has been receiving his care in [place] and details are summarized in my consult note of September 25. I had the chance today to have a more detailed discussion with the extended family. 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 They were not aware of the implication of that. 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 Ritter who have been involved. His neutropenia has resolved with the three days injection of Neupogen. He does have now a left shift with metamyelocytes and 1 blast which is likely a reactive effect to Neupogen in the setting of sepsis and should resolve. Neupogen can be now discontinued. Last dose was given yesterday. I discussed his situation with Dr. Ritter as well. The family asked some questions and will be thinking about his goals of care in the coming days if his condition does not turn around.
[2016-09-30] VITALS (12 sets, daily range): BP systolic 151–183; BP diastolic 62–91; PULSE 85–114; RESP 26–30; O2SAT 96–99
[2016-09-30] MEDS: Heparin 5,000 Unit/mL Inj SUBQ SCH ×3 (00:35→17:12)
[2016-09-30] MEDS: Chlorhexidine 0.12% 15 mL Oral Solution MT SCH ×6 (00:35→19:54)
[2016-09-30] MEDS: Potassium Chloride 20 mEq/15 mL 15mL Oral Soln TUBE SCH ×2 (00:35→06:37)
[2016-09-30] MEDS ORDERED: KCl 40 mEq/100 mL (CENTRAL) 40 MEQ in IV Premix 1 EACH IV ONE ×2 (02:40→18:30)
[2016-09-30] MEDS: Insulin Human REGular 300 Unit/3 mL Inj SUBQ SCH ×4 (03:00→21:06)
--- NOTE | 2016-09-30 04:17 | ABG ---
DateTimeAnalyzed 04:12:00 -_ pH ____7.431 - pCO2 ___38.0__ -mmHg pO2 ___40.3__ -mmHg HCO3- ___24.9__ -mmol/L ABE ____1.1__ -mmol/L tHb ____7.4__ -g/dL O2Hb ___74.0__ -% COHb ____1.4__ -% MetHb ____1.3__ -% sO2 ___76.1__ -% FIO2 ___50.0__ -% Pressure_Support ___18.0__ -cmH2O PEEP ___14.0__ -cmH2O Set_RR ___24.0__ -b/min Vt __658.0__ -L Drawn By RN - Oxygen Device 2 PRESSURE CONTROL 18 -_ Date/Time Notified____ 04:17:00 -_ Spontaneous_RR ___28.0__ -b/min Oxygen Device 1 VENTILATOR - Notified By BLF - Notified Whom CALIXTO ANGELA RN - B 763 -mmHg tO2 ____7.7__ -Vol% Jeevan test N/A -
[2016-09-30] MEDS: Nafcillin Inj 12,000 MG in Dextrose 5% 1,000 ML IV SCH (04:59)
[2016-09-30 06:12] LABS: Mean Corpuscular Hemoglobin 28.2 pg (27.0-35.0); Mean Corpuscular Volume 82.1 fL (81-100); Platelet Count 78 bil/L (150-400)
[2016-09-30 06:34] LABS: Magnesium 1.9 mg/dL (1.6-2.6); Phosphorus 5.1 mg/dL (2.5-4.9)
--- NOTE | 2016-09-30 06:47 | NUR ---
Febrile P: Tmax 38.7 C, skin warm to touch. I: applied cooling measures and given cool bath. E: last temp down to 37.3. Low K+ P: K+ 3.2 around midnight I: given routine kcl po and krider 40 meq IV over 4hrs. E: repeat K+ pending this am Hypertensive P: SBP from 160-190's systolic, HR 110s ST. I: notified Dr. Benitez of BP with no new order, ok for permissive htn. E: SBP still labile from 160-180's, hearn drained with 3400cc uo.
[2016-09-30 07:47] LABS: NEUTROPHILS % (AUTO) 67 % (40-74)
[2016-09-30 07:48] LABS: BASOPHILS % (AUTO) 0 % (0-3); EOSINOPHILS % (AUTO) 0 % (0-5); MONOCYTES % (AUTO) 5 % (4-12)
[2016-09-30] MEDS: Lanthanum Carbonate 500 mg Chewable Tablet TUBE SCH (08:00)
[2016-09-30] MEDS: Senna Leaf Extract 528 mg/15 mL Syrup PO SCH ×2 (08:30→19:55)
[2016-09-30] MEDS ORDERED: Labetalol 5 mg/mL 4 mL Inj IVPUSH ONE (09:25)
--- NOTE | 2016-09-30 09:57 | DRSVH ---
PROCEDURE: X-RAY CHEST ONE VIEW, PORTABLE ([id number]) INDICATIONS: intubated TECHNIQUE: One view of the chest was acquired. COMPARISON: [facility], CR, XR CHEST 1VW (PORTABLE), 09/29/2016, 5:34. FINDINGS: Surgical changes and devices: ETT tip projected 4.9 cm above the eh. Stable positioning of a uriah ogastric tube, right IJ CVL, right pleural drain and left PICC. Lungs and pleura: Pulmonary edema as well as mid/basilar patchy airspace opacities redemonstrated. S mall pleural effusions. No pneumothorax. Mediastinum: Mediastinal contours appear normal. Heart size is normal. Bones and chest wall: No suspicious bony lesions. Overlying soft tissues appear unremarkable. IMPRESSION: 1. No significant change from prior exam. Dictated by: Francisco Javier Antonio [facility] Interpreted: Juliocesar Sanches MD on 09/30/2016 at 9:56 Transcribed by: FÉLIX on 09/30/2016 at 9:57 Approved by: Juliocesar Sanches M.D. on 10/01/2016 at 10:48
[2016-09-30] MEDS: Famotidine Inj 20 MG in IV Premix 1 EACH IV SCH (10:02)
[2016-09-30] MEDS: SODIUM CHLORIDE 0.9% IV SCH (10:02)
[2016-09-30] MEDS: metroNIDAZOLE Inj 1,000 MG in IV Premix 1 EACH IV SCH ×2 (10:02→19:54)
[2016-09-30] MEDS: ACYCLOVIR IV SCH (10:02)
--- NOTE | 2016-09-30 10:02 | PROG NOTE ---
[address] [address] PROGRESS NOTE PATIENT: BRITTNEY CASILLAS : 1940 MR#: [id number] ADMIT: 09/21/2016 JOB ID: [id number] DATE: 09/30/2016 INFECTIOUS DISEASE FOLLOW UP NOTE: REASON FOR FOLLOW UP: Disseminated zoster, Staph aureus, sepsis, CLL and now new fever. INTERVAL HISTORY: Overnight, the patient has remained intubated and sedated. The nurse's report he occasionally shakes his head or moves a little bit which is the most he has done in several days but he is in no way responsive. He remains as noted intubated and sedated. PHYSICAL EXAMINATION: The patient did experience a fever overnight to 38.6 and he has been febrile basically throughout the night. His pulse is also increased with tachycardia in the low 100 range. Blood pressure 171/75. He is saturating 98% on 50% on the ventilator. Examination of the head reveals no changes. The eyes now are developing gradual hemorrhagic conjunctivitis. The nose appears normal. There is no bleeding or eschar. The oral endotracheal tube, oral gastric tube in good position. Neck without new abnormality. His right neck central line appears benign. Lungs with decreased breath sounds, rales and rhonchi bilaterally at this point. Cardiac tones distant without change. The abdomen is somewhat distended. With respect to the skin, the patient has some what appear to be traumatic lesions around both wrists which I suspect are due to restraints or other devices. These do not have a zoster type appearance. The zoster rash over the shoulder as well as across the torso has basically resolved. A new rash, however, is emerging and this is a diffuse macular erythematous rash in both flanks which extends up and across his back. This could be but is not diagnostic of a drug rash. The patient's scrotum is grossly swollen and is somewhat worse than yesterday. There is no evidence for skin breakdown or scrotal cellulitis. The lower extremities are grossly edematous bilaterally but still well-perfused. With the assistance of two nurses, the patient was rolled over. The decubitus ulcer on his left buttock is little changed from admission. The patient's backside was unfortunately covered with a thin stool which had oozed from around his rectal tube. LABORATORIES: Include a white count of 10,000 which is increased in the presence of Neupogen. Platelet count 78,000. The differential showed left shift is seen on the differential but this is attributed to the Neupogen. His creatinine is 2.83, slowly better. Bicarbonate 23. LFTs completely normal. Procalcitonin pending. QuantiFERON Gold has come back negative. Fungitell negative and QuantiFERON Gold indeterminate. No new micro. Positives are available. We do have a sputum from the which is not growing anything interestingly. Recent blood cultures also negative. IMAGING: Includes a chest x-ray, which shows pulmonary edema versus atelectasis. No change. IMPRESSION: This patient now has a nosocomial fever of significance which is quite confusing. I doubt that this is secondary to worsening of his disseminated zoster as he has now been on high-dose acyclovir for over a week and this would be a very surprising development. That said, will go ahead and PCR one of the lesions on his wrist to make sure there is no reactivation. The rash on his flanks and back is largely dependent and may strictly be a pressure phenomenon but certainly could represent a drug rash, and for that reason, I think we should probably switch the patient off of nafcillin. Another reason to switch from nafcillin is to provide some broader coverage while we try and figure out the cause of his nosocomial fevers. The possible causes would include bacteremia or fungemia secondary to central line and/or a skin breakdown beyond the Staph aureus we already know about, pancreatitis, C difficile colitis, superimposed nosocomial pulmonary infection or drug fever as was mentioned. RECOMMENDATIONS: 1. Fungal blood cultures x2 will be ordered including one through the IV line. 2. Will check stool for C difficile. 3. Will check a urinalysis with a reflex culture. 4. Discontinue the nafcillin and switch to meropenem. 5. Will continue with the IV acyclovir. 6. This case discussed at the bedside with two nurses as well as Dr. Thomas of the ICU team.
[2016-09-30] MEDS: LacriLube S.O.P. 3.5 Gm Ophthalmic Ointment BOTH_EYES SCH ×2 (10:04→19:54)
[2016-09-30] MEDS: Furosemide 10 mg/mL 10 mL Inj IVPUSH SCH ×2 (10:04→21:05)
--- NOTE | 2016-09-30 10:14 | PCM.PNMED ---
Subjective Date of Service Sep 30, 2016 Subjective PULMONARY/CRITICAL CARE PROGRESS NOTE Overnight: No acute events reported. Remains off pressors. Today: Remains off pressors. Reports of fever, Tmax 38.6. BP elevated with sys> 200, HR remains tachycardic > 100. No acute distress. Eyes open, minimally responsive, but not purposeful or following commands. No family present at bedside at time of examination. Labs: WBC 10.3, likely due to neupogen; Na 151, K 3.4, Cr 2.83, albu 3.0; net IO +81885sP; 24hUOP 6400mL Vent: Pressure control; FiO2 50, PEEP 14; Chest tube remains in place with nil output Exam Vital Signs Vital Sign - Last Date Time Temp Pulse Resp B/P Pulse Ox O2 Delivery O2 Flow Rate FiO2 09/30/16 07:51 94 171/75 98 50 09/30/16 04:10 37.3 26 Mechanical Ventilator Intake and Output 09/29/16 09/29/16 09/30/16 Cumulative From/Thru 15:00 23:00 07:00 09/21/16 19:30 - 09/30/16 05:02 Intake Total 1922 ml 1775 ml 41744 ml Output Total 4000 ml 3510 ml 45709 ml Balance -2078 ml -1735 ml 59656 ml Intake Oral 60 ml IV Total 1023 ml 1054 ml 98861 ml Tube Feeding 659 ml 521 ml 3051 ml Tube Irrigant 240 ml 200 ml 1186 ml Output Urine Total 3600 ml 3400 ml 43858 ml Stool Total 200 ml 50 ml 550 ml Gastric Drainage Total 200 ml 0 ml 1565 ml Chest Tube Drainage Total 0 ml 60 ml 335 ml # Bowel Movements 7 Exam General: Intubated and sedated; no acute distress; diffusely edematous HENT: Sclera anicteric; ETT in place, mucus membranes dry; bilateral corneal edema present Neck: Soft, obese, trachea midline by palpation; edematous Cardiac: Tachycardic; no murmurs appreciated Respiratory: Adequate air flow all ruiz but faint secondary to habitus, R > L diminished sounds; faint crackles at bases bilaterally; no wheeze appreciated Abdomen: Soft, nontender, nondistended; obese; moderate pitting anasarca present Extremities: BLLE moderate pitting edema from ankles to abdomen; BLUE moderate pitting edema noted distal extremities to arms; soft restraints BLUE in place Lines: R IJ; Left PICC; bandages dry, intact : Prado in place; urine yellow; moderate-severe scrotal edema present Skin: Multiple scabbed, healed lesions noted over lower abdomen and groin; no active bleeding or exudate noted. Additional scabbed lesions noted diffusely over left shoulder anteriorly without active bleeding or exudate, continue to appear dry and healing; lesions of bilateral wrists erythematous and weeping, no active bleeding Neuro: Unable to fully assess secondary to intubation and sedation Psych: Unable to assess at this time secondary to intubation and sedation Lab and Diagnostics Result Diagram: 09/30/16 0600 09/30/16 0600 Microbiology CSF positive for VZV MRSA negative Buttock culture positive for staphylococcus aureus Blood cultures 2 out of 4 positive for gram positive cocci Sputum positive for staphylococcus aureus X-Rays, CTs and MRIs X-RAY CHEST ONE VIEW, PORTABLE IMPRESSION: Right thoracostomy tube. No pneumothorax or subcutaneous emphysema. Dictated by: Simona Johnson M.D. on 09/25/2016 at 18:52 Approved by: Simona Johnson M.D. on 09/25/2016 at 18:52 X-RAY CHEST ONE VIEW, PORTABLE IMPRESSION: 1. Support lines and tubes as above. 2. Bilateral pleural effusions, right greater than left. 3. Bilateral lower lung consolidation, increasing involving the right lung base and similar involving the left. Dictated by: Francisco Javier BASSETT Interpreted: Merry Robison MD on 09/23/2016 at 9:45 Transcribed by: JIM on 09/23/2016 at 9:45 Approved by: Merry Robison MD, PhD on 09/23/2016 at 16:56 X-RAY CHEST ONE VIEW, PORTABLE IMPRESSION: 1. Support lines and tubes as above. 2. Abnormal opacity within the right lung and the lung bases consistent with pulmonary edema and/or diffuse bilateral inflammatory process. Recommend clinical correlation and followup. Dictated by: Francisco Javier BASSETT Interpreted: Jammie Drake MD on 09/22/2016 at 9: 13 X-RAY CHEST ONE VIEW, PORTABLE IMPRESSION: Improved aeration of the right lung and decreased pleural effusion when compared with the prior study. Dictated by: Simona Johnson M.D. on 09/27/2016 at 8:30 12-lead ECG Normal sinus rhythm at 116 bpm, left axis deviation present, QTC 478, mild widening of QRS complex (104 ms) Additional Diagnostics DateTimeAnalyzed 05:17:00 -_ pH ____7.362 - pCO2 ___40.3__ -mmHg pO2 ___42.6__ -mmHg HCO3- ___22.3__ -mmol/L Assessment & Plan PULMONARY/CRITICAL CARE CONSULT NOTE - Hospital day 9 - Ventilator day 9 Mr. Villegas [place] [facility] [place] likely secondary to aspiration PNA. He required intubation and sedation, fluid resuscitation, use of pressor agents, and paralytics. He was stabilized in the CCU, with pressor weaning, and continued ventilatory support. Infectious disease has been consulted to evaluate the source of infection, including the disseminated VZV. Chart review reveals multiple recent hospitalizations at [place] and [facility] [place] recent days prior to this admission for reported AMS. Imaging was performed at these facilities, and requests were placed to push images to our system and to obtain records. He currently remains stable in the CCU intubated and sedated receiving fluids, pressors, and antibiotics. Repeat CT 09/22 did not reveal any acute pathologies. Echo completed 09/22, was a difficult study, but LV was grossly unremarkable with function, and RV was mildly dilated, but unremarkable in function. Valves were not well visualized. CSF PCR confirmed the presence of zoster. S. aureus has been detected in sputum , blood, and buttock lesion, indicating a staph bacteremia; Bacteroides was found within buttock lesion as well. Infectious disease consulted and following. Nephrology was consulted to evaluate kidney function and fluid status. Recent decrease in Hb/acute anemia may be indicative of dilution. Chest tube was urgently placed 09/25 secondary to rapidly progressing hypoxemia due to enlarging effusion. Estimated 1-2L drained upon tube placement, fluid yellow/ clear in color. Chest tube output decreased to zero, remains in place while mechanically ventilated. Lesions developed on bilateral wrists that appear weeping and erythematous, likely secondary to irritation from restraint and ID bracelet placement. No concern for zoster. Fevers developed 09/29-09/30. New cultures obtained. Assessments - Acute hypoxemic respiratory failure - Severe sepsis likely secondary to aspiration PNA, bacteremia, and disseminated zoster - Suspected aspiration PNA vs zoster pneumonitis - Disseminated zoster with meningoencephalitis - DANY - Normocytic normochromic anemia, acute - Metabolic acidosis with respiratory acidosis - Hypertensive urgency Plan: - Continue mechanical ventilation, decreasing PEEP x2 q8h as tolerated; assess for stability for SBT daily - Keep chest tube in place at this time; consider removal when extubated and stabilized - Decrease sedation as tolerated as day progresses; continue to advise against propofol; decrease fentanyl x10mcg q12-24h - Consider Zyprexa 10mg ODT q12h prn for agitation/restlessness - Insulin gtt on standby to maintain BG < 180 - Replenish electrolytes prn - ABGs in am - Upright CXR in am - Abx/antivirals per ID - Neupogen per oncology; discontinued - Nephrology consulted; patient in need of fluid management and diuresis, appreciate time and recs - Recommend to concentrate medications as much as possible, with D5W as fluid - Continue hep SQ at this time; with monitoring of platelets; caution when platelets fall < 50K - Labetalol 10mg IV x1 per primary team for BP/HR control - Med rec to be completed; chart review reveals pt on chronic BP/HR medications ; re-initiate cautiously - DVT: Hep q8 - GI: H2B Thank you for this consult, we will happily follow along with you at this time. If you have any additional concerns or would like us to assist in any other way , please do not hesitate to ask. Total time: 60 minutes Pain Evaluation: Adequate Pain Control GI Prophylaxis: H2 germaine VTE Prophylaxis: Sub-Q Heparin (Unfractionated) VTE Mechanical Devices: Intermittant Pneumatic CD Resuscitation Status: CPR: Attempt Resuscitation Attending Statement The patient was seen and examined together with Dr. Allred on 09/30/2016 and I agree with the history, exam and plan as outlined in the note above. Alfreda Allred DO Sep 30, 2016 10:14 Gerardo Thomas MD Oct 18, 2016 13:08
[2016-09-30 10:27] LABS: APPEARANCE,URINE SLIGHTLY CLOUDY (CLEAR,HAZY); COLOR,URINE YELLOW (YELLOW); OCCULT BLOOD,URINE NEGATIVE (NEGATIVE); UROBILINOGEN,URINE NORMAL (NORMAL); YEAST,URINE MANY (NONE SEEN)
--- NOTE | 2016-09-30 10:56 | NUR ---
NUTRITION FOLLOW-UP ASSESS: 76 YO male admitted to CCU with acute hypoxic respiratory failure, severe sepsis, MSSA pneumonia and disseminated zoster with meningoencephalitis. Pt remains ventilator dependent and is experiencing renal failure. Per MD, he is fluid overloaded at 22 L positive but seems to be improving. Pt remains on Jevity 1.5 formula d/t improved potassium and phosphorous levels. Due to miscommunication, pt currently receiving Jevity 1.5 at 60 ml/hr. Clarified w/ nursing that TF goal rate is 75 ml/hr. PMHX: CLL, HTN, hypercholesterolemia, GERD, cataracts, COPD LABS Reviewed. Na 151, K 3.4 ,Cl 110, BUN 96, Commutator Presser 2.83, Gluc 204, Ca 7.4, Phos 5.1, Alb 3.0 MEDS: Reviewed. 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 NEEDS: BMI (based on Admit Wt) Kcals: 0492-9731 kcal/day (20-22 kcal/kg Admit BW) Pro: 105-120g/day (1.5-1.8g/kg IBW) Fluid: 2400 ml/day (~1 ml/kcal/d) NUTRITION DIAGNOSIS: 1) Inadequate oral intake related to decreased ability to consume sufficient energy as evidenced by current vent / NPO status - PERSISTS. NUTRITION INTERVENTION: 1) Recommend increasing Jevity 1.5 to goal TF rate of 75 ml/hr to provide 2,475 kcal and 105 g protein (100% estimated needs). Fluid flush 40ml q 4 hrs. MONITOR / EVAL: Enteral feeding advance / tolerance, vent status, wt, labs, GI, POC, nutrition status. Will continue to monitor per high nutrition risk guidelines. Addendum: 09/30/16 at [address] Student documentation reviewed and I agree with the above assessment. Eileen Villanueva, , MARC, CD Addendum: 10/01/16 at [address] Per , free water flush will be increased to 100 ml H2O q 1 hrs
--- NOTE | 2016-09-30 11:11 | PCM.PNMED ---
Subjective Date of Service Sep 30, 2016 Subjective He has become hypertensive. Tmax 38.6 overnight. good UOP, remains edematous. worsening hypernatremia. Exam Vital Signs Vital Sign - Last Date Time Temp Pulse Resp B/P Pulse Ox O2 Delivery O2 Flow Rate FiO2 09/30/16 07:51 94 171/75 98 50 09/30/16 04:10 37.3 26 Mechanical Ventilator Intake and Output 09/29/16 09/29/16 09/30/16 Cumulative From/Thru 15:00 23:00 07:00 09/21/16 19:30 - 09/30/16 05:02 Intake Total 1922 ml 1775 ml 70721 ml Output Total 4000 ml 3510 ml 63675 ml Balance -2078 ml -1735 ml 42194 ml Intake Oral 60 ml IV Total 1023 ml 1054 ml 92434 ml Tube Feeding 659 ml 521 ml 3051 ml Tube Irrigant 240 ml 200 ml 1186 ml Output Urine Total 3600 ml 3400 ml 90113 ml Stool Total 200 ml 50 ml 550 ml Gastric Drainage Total 200 ml 0 ml 1565 ml Chest Tube Drainage Total 0 ml 60 ml 335 ml # Bowel Movements 7 Exam GA: intubated, sedated. HEENT: atraumatic, chemosis, injected conjunctiva, ETT/OG in place. Heart: RRR, normal S1/S2, no murmur. Lungs: equal BS, fine crackles at bases. Abd: soft, moderate distension, decreased BS. Ext: 3+ edema. : severe scrotal swelling, hearn cath in place with yellowish urine. Skin: right IJ in place, crusted papules noted on left shoulder. Lab and Diagnostics Result Diagram: 09/30/16 0600 09/30/16 0600 Microbiology CSF positive for VZV MRSA negative Buttock culture positive for staphylococcus aureus Blood cultures 2 out of 4 positive for gram positive cocci Sputum positive for staphylococcus aureus X-Rays, CTs and MRIs X-RAY CHEST ONE VIEW, PORTABLE IMPRESSION: Right thoracostomy tube. No pneumothorax or subcutaneous emphysema. Dictated by: Simona Johnson M.D. on 09/25/2016 at 18:52 Approved by: Simona Johnson M.D. on 09/25/2016 at 18:52 X-RAY CHEST ONE VIEW, PORTABLE IMPRESSION: 1. Support lines and tubes as above. 2. Bilateral pleural effusions, right greater than left. 3. Bilateral lower lung consolidation, increasing involving the right lung base and similar involving the left. Dictated by: Francisco Javier BASSETT Interpreted: Merry Robison MD on 09/23/2016 at 9:45 Transcribed by: JIM on 09/23/2016 at 9:45 Approved by: Merry Robison MD, PhD on 09/23/2016 at 16:56 X-RAY CHEST ONE VIEW, PORTABLE IMPRESSION: 1. Support lines and tubes as above. 2. Abnormal opacity within the right lung and the lung bases consistent with pulmonary edema and/or diffuse bilateral inflammatory process. Recommend clinical correlation and followup. Dictated by: Francisco Javier BASSETT Interpreted: Jammie Drake MD on 09/22/2016 at 9: 13 X-RAY CHEST ONE VIEW, PORTABLE IMPRESSION: Improved aeration of the right lung and decreased pleural effusion when compared with the prior study. Dictated by: Simona Johnson M.D. on 09/27/2016 at 8:30 12-lead ECG Normal sinus rhythm at 116 bpm, left axis deviation present, QTC 478, mild widening of QRS complex (104 ms) Additional Diagnostics DateTimeAnalyzed 05:17:00 -_ pH ____7.362 - pCO2 ___40.3__ -mmHg pO2 ___42.6__ -mmHg HCO3- ___22.3__ -mmol/L Assessment & Plan 1. DANY on CKD due to nonoliguric ATN cause of ATN is rather multifactorial: sepsis, medications. 2. Hypervolemic hypernatremia. 3. Anasarca. 4. Septic shock/Staphylococcus bacteremia. - now febrile, Tmax 38.6 5. Disseminated zoster. 6. Diuretic-induced hypokalemia. 7. h/o CLL. 8. Elevated blood pressure, likely volume related. Plan: continue lasix 80 mg IV q 12hr. free water flushes 300 ml q 4 hr, d5w 60 ml/hr. KCL solution 40 meq q 6 h x 4 doses. Double concentrate all IV meds. Meds to be mixed in d5w. GI Prophylaxis: H2 germaine VTE Prophylaxis: Sub-Q Heparin (Unfractionated) VTE Mechanical Devices: Intermittant Pneumatic CD Resuscitation Status: CPR: Attempt Resuscitation Susan Ross MD Sep 30, 2016 11:11
[2016-09-30] MEDS: Meropenem Inj 2,000 MG in 0.9% Sodium Chloride 100 ML IV SCH ×2 (11:32→21:51)
[2016-09-30] MEDS: Dextrose 5% 1,000 ML IV SCH (11:32)
[2016-09-30] MEDS: Potassium Chloride 20 mEq/15 mL 15mL Oral Soln PO SCH ×2 (11:32→17:12)
[2016-09-30] MEDS: fentaNYL 2,500 mCg/250 mL 2,500 MCG in IV Premix 1 EACH IV PRN (11:34)
[2016-09-30] MEDS: Midazolam 100 mg/100 mL Premix IV PRN (12:17)
[2016-09-30 17:48] LABS: Magnesium 1.8 mg/dL (1.6-2.6)
--- NOTE | 2016-09-30 18:25 | PCM.PNMED ---
Subjective Date of Service Sep 30, 2016 Amy Villegas is a 76-year-old male with CLL currently on chemotherapy with past medical history significant for likely COPD, recent visit to [facility] in [place], and ongoing hypertension directly transferred to [facility] from [facility] due to acute septic shock secondary to presumed aspiration pneumonia. Hospital day 10. Overnight: Febrile overnight with Tmax of 38.6. Continues on fentanyl and versed gtt for sedation. Urine output of 1700 mls overnight. Today: Patient remains intubated and sedated. Fentanyl and versed gtt for sedation. PEEP decreased. Potassium being replaced. Tube feeds at goal with minimal residuals. ROS is not obtainable. Exam Vital Signs Vital Sign - Last Date Time Temp Pulse Resp B/P Pulse Ox O2 Delivery O2 Flow Rate FiO2 09/30/16 04:10 37.3 102 26 166/63 97 Mechanical Ventilator 50 Intake and Output 09/29/16 09/29/16 09/30/16 Cumulative From/Thru 15:00 23:00 07:00 09/21/16 19:30 - 09/30/16 05:02 Intake Total 1922 ml 1775 ml 81384 ml Output Total 4000 ml 3510 ml 07937 ml Balance -2078 ml -1735 ml 37907 ml Intake Oral 60 ml IV Total 1023 ml 1054 ml 02155 ml Tube Feeding 659 ml 521 ml 3051 ml Tube Irrigant 240 ml 200 ml 1186 ml Output Urine Total 3600 ml 3400 ml 24943 ml Stool Total 200 ml 50 ml 550 ml Gastric Drainage Total 200 ml 0 ml 1565 ml Chest Tube Drainage Total 0 ml 60 ml 335 ml # Bowel Movements 7 Exam Gen: Intubated and sedated, anasarca, no restraints. HEENT: PERRLA, corneal edema, large neck, R IJ in place. Cardio: Regular rate and rhythm, no murmurs noted. Respiratory: Faint crackles in bilateral bases. Mechanically ventilated. Right chest tube in place with serosanguinous fluid. Abdomen: Firm, distended, normal bowel sounds. : Prado in place. Scrotal edema. Skin: Shingles on the left shoulder anteriorly and superiorly currently crusted. Lesions on bilaterally wrist secondary to restraints. Extremities: Lower extremity edema and anasarca. Neurologic: Patient sedated. Psych: Patient sedated. Lab and Diagnostics Result Diagram: 09/29/16 0455 09/30/16 0600 Microbiology CSF positive for VZV MRSA negative Buttock culture positive for staphylococcus aureus Blood cultures 2 out of 4 positive for gram positive cocci Sputum positive for staphylococcus aureus X-Rays, CTs and MRIs X-RAY CHEST ONE VIEW, PORTABLE IMPRESSION: Right thoracostomy tube. No pneumothorax or subcutaneous emphysema. Dictated by: Simona Johnson M.D. on 09/25/2016 at 18:52 Approved by: Simona Johnson M.D. on 09/25/2016 at 18:52 X-RAY CHEST ONE VIEW, PORTABLE IMPRESSION: 1. Support lines and tubes as above. 2. Bilateral pleural effusions, right greater than left. 3. Bilateral lower lung consolidation, increasing involving the right lung base and similar involving the left. Dictated by: Francisco Javier BASSETT Interpreted: Merry Robison MD on 09/23/2016 at 9:45 Transcribed by: JIM on 09/23/2016 at 9:45 Approved by: Merry Robison MD, PhD on 09/23/2016 at 16:56 X-RAY CHEST ONE VIEW, PORTABLE IMPRESSION: 1. Support lines and tubes as above. 2. Abnormal opacity within the right lung and the lung bases consistent with pulmonary edema and/or diffuse bilateral inflammatory process. Recommend clinical correlation and followup. Dictated by: Francisco Javier BASSETT Interpreted: Jammie Drake MD on 09/22/2016 at 9: 13 X-RAY CHEST ONE VIEW, PORTABLE IMPRESSION: Improved aeration of the right lung and decreased pleural effusion when compared with the prior study. Dictated by: Simona Johnson M.D. on 09/27/2016 at 8:30 12-lead ECG Normal sinus rhythm at 116 bpm, left axis deviation present, QTC 478, mild widening of QRS complex (104 ms) Additional Diagnostics DateTimeAnalyzed 04:12:00 -_ pH ____7.431 - pCO2 ___38.0__ -mmHg pO2 ___40.3__ -mmHg HCO3- ___24.9__ -mmol/L Assessment & Plan Magdaleno Villegas is a 76-year-old male with CLL currently on chemotherapy with past medical history significant for likely COPD, recent visit to [facility] in [place], and ongoing hypertension directly transferred to [facility] from [facility] due to acute septic shock secondary to presumed aspiration pneumonia. Hospital day 10. 1. Severe sepsis with shock, present on admission, improving. -Etiology multifactorial including disseminated zoster, staph bacteremia, and decubitus ulcer on his buttocks. -[place] [facility] [place] hypotensive and unresponsive to fluids and was started on three pressors and transferred to [facility]. -On admission here patient tachycardic, pro-calcitonin 21.82, lactic acid of 4.8 (lactic acid at [facility] was 1.4). -Norepinephrine titrated off on 09/28 at 2000. -Blood cultures and lumbar puncture as below. -Dr. Ritter consulted, appreciate the expertise. 2. Staphylococcus bacteremia, present on admission active. - Blood cultures 2 out of 4 positive. - Repeat blood cultures drawn with no growth on 09/27. - Nafcillin continuos infusion from 09/24-09/30. - Meropenem started 09/30. - Dr. Ritter consulted, appreciate time and expertise. 3. Disseminated zoster, present on admission, active. -Evidence of multiple lesions in multiple dermatomes. Currently crusted. -Patient has encephalitis, hepatitis, and pneumonitis secondary to disseminated zoster -Continue on IV acyclovir, dose adjusted for renal failure by Dr. Ritter -Lumbar puncture with high opening pressure. CSF clear, WBC 19, RBC 2, Mononuclear WBCs 100, Polynuclear WBCs 0, Glucose 75, Protein 58. -Dr. Ritter consulted, appreciate the expertise. 4. Acute hypoxic respiratory failure, present on admission, active. -Patient presented with severe hypoxia and was requiring 100% FiO2, 12 of PEEP, respiratory rate of 35, and tidal volumes were initially 600 mL but was quickly taken down to 470 mL. -Chest tube placed 09/25 due to hypoxemia secondary to large pleural effusion. -Patient also has suspected underlying COPD which will complicate his pulmonary course. -Ventilator management per ICU team, appreciate the expertise 5. Lactic acidosis, present on admission, active. -Etiology is likely infectious but patient's CLL likely a contributing factor. -Lactic acid 4.8 on admission. Currently 2.3. -Will continue to monitor daily. 6. Acute kidney injury, present on admission, improving. -Patient presented to [facility] with a creatinine of 0.8, however over the subsequent days prior to his transfer here he was having a slow increase in his creatinine up to 1.6 and after pressure support his creatinine on arrival here was 2.21. -This acute kidney injury is likely due to hypoperfusion/prerenal secondary to dehydration and excessive pressure support with 2 peripheral vasoconstrictors and Levophed. Likely has a degree of ATN. -Lasix increased to 80mg IV Q12H. -Albumin 25 mg Q8H discontinued. -UOP 1700 ml overnight. -Continue to monitor I and O and daily BMP -No indication for dialysis at this time -Nephrology consulted. Appreciate time and expertise. 7. Chronic lymphocytic leukemia, present on admission, undergoing oral chemotherapy prior to hospitalization. -No records available thus far but patient appears to be on current chemotherapy per family. -Neupogen given per Dr. Benavides's recommendations. -Heme/Onc consulted. Appreciate time and expertise. 8. Elevated liver enzymes, present on admission, improving. -Etiology likely multifactorial including disseminated zoster and shock liver. -Liver enzymes trending down. 9. Acute encephalopathy, present on admission, active. -Patient has a recent history of acute confusion with hospital admission and resolution of confusion during those stays. -Etiology likely secondary to sepsis, infection, and VZV encephalitis. -Sedation titrated down but continues on fentanyl and versed. -CT head showed no acute intracranial process. -Lumbar puncture with high opening pressure. CSF clear, WBC 19, RBC 2, Mononuclear WBCs 100, Polynuclear WBCs 0, Glucose 75, Protein 58. 10. Decubitus ulcer, present on admission, active. -Wound culture grew bacteroides fragillis. -Metronidazole 1000 mg Q12H. -Wound care consulted. Disposition: Patient remains critically ill and in the CCU. GI Prophylaxis: H2 germaine VTE Prophylaxis: Sub-Q Heparin (Unfractionated) VTE Mechanical Devices: Intermittant Pneumatic CD Resuscitation Status: CPR: Attempt Resuscitation Attending Statement The patient was seen and examined together with Dr. Lama on 09/30/2016 and I agree with the history, exam and plan as outlined in the note above. . MATTHEW LAMA DO Sep 30, 2016 07:46 Coleman Velásquez MD Oct 01, 2016 07:37
--- NOTE | 2016-09-30 19:12 | NUR ---
RESPIRATORY/BLOOD PRESSURE/URINE OUTPUT Patient tolerating ventilator well, RT able to decrease PEEP settings to 50% FiO2, 12 PEEP and pressure control setting of 18/PEEP. Patient does not appear to be in respiratory distress, but is overbreathing the vent regularly. BP elevated and pt tachycardic at start of shift, w/ systolic BP in 200s. One time dose of Labetolol 10 mg administered IV, which brought HR down to 80s and SBP down to 150. Labetolol 10 mg added to scheduled meds, to be given Q6H. 80 mg IV Lasix administered per nephrology orders, urine output this shift was 5150 mL. Potassium being monitored closely, will continue to monitor vitals, respiratory status and sedation needs.
[2016-09-30] MEDS: Labetalol 5 mg/mL 4 mL Inj IVPUSH SCH (19:54)
[2016-10-01] VITALS (14 sets, daily range): BP systolic 109–183; BP diastolic 49–92; PULSE 91–115; RESP 25–36; O2SAT 90–97
[2016-10-01] MEDS: Heparin 5,000 Unit/mL Inj SUBQ SCH ×3 (00:20→16:30)
[2016-10-01] MEDS: Chlorhexidine 0.12% 15 mL Oral Solution MT SCH ×6 (00:20→20:50)
[2016-10-01] MEDS: Potassium Chloride 20 mEq/15 mL 15mL Oral Soln PO SCH ×2 (00:20→05:39)
[2016-10-01] MEDS: Labetalol 5 mg/mL 4 mL Inj IVPUSH SCH ×3 (02:36→14:49)
[2016-10-01] MEDS: Dextrose 5% 1,000 ML IV SCH ×2 (02:36→20:43)
[2016-10-01] MEDS: Insulin Human REGular 300 Unit/3 mL Inj SUBQ SCH ×4 (02:39→21:01)
[2016-10-01 03:28] LABS: Mean Corpuscular Hemoglobin 27.8 pg (27.0-35.0); Mean Corpuscular Volume 83.4 fL (81-100); Platelet Count 79 bil/L (150-400)
[2016-10-01 03:55] LABS: BASOPHILS % (AUTO) 0 % (0-3); EOSINOPHILS % (AUTO) 2 % (0-5); MONOCYTES % (AUTO) 2 % (4-12); NEUTROPHILS % (AUTO) 82 % (40-74)
--- NOTE | 2016-10-01 04:09 | NUR ---
HTN/Labs P: sbp 150-180's mmhg, HR 95-103 I: given routine labetalol 10 mg slow IVP, continue diuresing with lasix 80 mg IV. E: sbp 150's mmhg, large uo from hearn >2L Pt gets routine kcl 40 meq per NGT, also KCL 40 meq IV x 1 given, repeat K+ this am pending. Respiratory continued on vent support, sp02>94%, Rt CT with scanty serous fluid. Nutrition Tolerating tube feeds with small residuals, continued diarrhea via fms.
[2016-10-01 04:24] LABS: Magnesium 1.7 mg/dL (1.6-2.6); Phosphorus 4.6 mg/dL (2.5-4.9)
[2016-10-01] MEDS: fentaNYL 2,500 mCg/250 mL 2,500 MCG in IV Premix 1 EACH IV PRN (04:32)
--- NOTE | 2016-10-01 06:07 | ABG ---
DateTimeAnalyzed 06:03:00 -_ pH ____7.441 - pCO2 ___41.3__ -mmHg pO2 ___33.7__ -mmHg HCO3- ___27.7__ -mmol/L ABE ____3.7__ -mmol/L tHb ____7.9__ -g/dL O2Hb ___65.3__ -% COHb ____1.5__ -% MetHb ____1.0__ -% sO2 ___67.0__ -% FIO2 ___50.0__ -% Pressure_Support ___18.0__ -cmH2O PEEP ___12.0__ -cmH2O Set_RR ___24.0__ -b/min Vt __625.0__ -L Drawn By RB - Oxygen Device 2 PRESSURE CONTROL 18 -_ Date/Time Notified____ 06:07:00 -_ Spontaneous_RR ___28.0__ -b/min Oxygen Device 1 VENTILATOR - Notified Whom RN - B 768 -mmHg tO2 ____7.3__ -Vol% Jeevan test N/A -
[2016-10-01] MEDS: Senna Leaf Extract 528 mg/15 mL Syrup PO SCH ×2 (07:08→20:49)
[2016-10-01] MEDS ORDERED: Magnesium Sulf 2 Gm/50mL Water 2 GM in IV Premix 1 EACH IV ONE (08:10)
[2016-10-01] MEDS: Famotidine Inj 20 MG in IV Premix 1 EACH IV SCH (08:25)
[2016-10-01] MEDS: LacriLube S.O.P. 3.5 Gm Ophthalmic Ointment BOTH_EYES SCH ×2 (08:26→20:50)
[2016-10-01] MEDS: Furosemide 10 mg/mL 10 mL Inj IVPUSH SCH ×2 (08:26→20:50)
--- NOTE | 2016-10-01 08:29 | PROG NOTE ---
[address] [address] PROGRESS NOTE PATIENT: BRITTNEY CASILLAS : 1940 MR#: [id number] ADMIT: 09/21/2016 JOB ID: [id number] DATE: 10/01/2016 INFECTIOUS DISEASE FOLLOW UP NOTE: REASON FOR FOLLOW UP: Disseminated varicella zoster virus with encephalitis, MSSA staph bacteremia, prolonged ventilator dependence, and new nosocomial fever. INTERVAL HISTORY: The patient remains intubated and sedated and restrained. I discussed this case in detail with the ICU team as well as the respiratory therapist at the bedside. Overnight the patient has continued to have a good urine output and his renal function has improved somewhat. He is no longer dependent on vasopressor agents but remains intubated and sedated and obviously very much ventilator dependent at this point. His fevers have subsided overnight. PHYSICAL EXAMINATION: Reveals an intubated, sedated gentleman who is afebrile. His last fever was in the television installer hours yesterday so he has been afebrile now about 30 hours. Temperature is currently 37.1, pulse approximately 100, respiratory rate 25 on the ventilator which is basically how it is set. Blood pressure 175/85, and he is saturating 96% on 50 FIO2 and 12 of PEEP. The eyes continue to have a hemorrhagic conjunctivitis. The patient is not responsive in any way. The nose is normal-appearing. Oral endotracheal tube, oral gastric tube in good position. Right upper extremity central line in good position. PICC line likewise in good position left upper extremity without inflammation. Lungs with rales at the bases as before. Cardiac tones distant and tachycardic. Abdomen distended without focal mass or evident tenderness though the patient is basically unresponsive. Scrotum continues to be grossly swollen with a Prado catheter in place. Lower extremity edema continues. No new cellulitis. Yesterday we rolled the patient over and carefully looked at the decubitus ulcer in his left buttock and noted that it was perhaps slightly smaller than admission without much in the way of surrounding erythema. LABORATORIES: Include white count 10,000. The differential on the white count has now normalized and he has 82% segs, but no metamyelocytes or myelocytes. His creatinine has improved dramatically over the last few days from 3.[address] down to 2.17 today, so his creatinine has dropped over a point. Urinalysis done yesterday, 6-10 white cells, not consistent with infection. Acyclovir level is still pending. Cryptococcal antigen was negative. QuantiFERON gold was indeterminate. Our first Fungitell was negative and I have ordered a new one. Micro includes sputum from the which grew yeast, probably Gisel. C difficile done yesterday negative. Fungal blood cultures done yesterday are pending and a urine culture done yesterday is pending. IMAGING: Includes yesterday's chest x-ray which shows really no change, some patchy airspace opacities are noted. Yesterday, we had new issues with this patient in that he had nosocomial fevers in the setting of his disseminated VZV and Staph aureus infections. A wide variety of studies were ordered and some of these are back. We have a negative C. difficile back at this point, and her blood cultures are negative at 24 hours. His urinalysis did not show any evidence of a urinary tract infection and a repeat VZV, PCR of the skin is pending. Yesterday, we switched off nafcillin to meropenem to broaden her antibiotic coverage and this seems to have been successful as his fevers have resolved. At this point it remains unclear as to what was the cause of his nosocomial fevers of yesterday, but the prompt response with the switch to meropenem may suggest one possibility. It is also possible, of course, that he had a drug fever due to nafcillin which has resolved with switching to meropenem though I find that less likely. The possibility of disseminated fungal infection also exists here and we await the fungal cultures and now Fungitell. RECOMMENDATIONS: 1. I have doubled the dose of acyclovir as his renal function is rapidly improving. How much longer to continue the acyclovir is a bit unclear but I would continue at least the next several days as we await improvement in his mental status. 2. Now that he is on meropenem instead of nafcillin, we can discontinue his Flagyl as the anaerobic coverage for the decubitus is contained within the meropenem and I have made that change. 3. A Fungitell will be added to his labs as we are increasingly concerned about the possibility of disseminated candidal infection. 4. We await today's procalcitonin but it is gratifying that yesterday's dropped all the way to 1.5. 5. Will continue to closely follow this very complex patient with you.
[2016-10-01] MEDS ORDERED: SODIUM CHLORIDE 0.9% IV SCH (08:30)
[2016-10-01] MEDS ORDERED: ACYCLOVIR IV SCH (08:30)
[2016-10-01] MEDS: Meropenem Inj 2,000 MG in 0.9% Sodium Chloride 100 ML IV SCH ×2 (09:17→20:50)
--- NOTE | 2016-10-01 10:34 | PCM.PNMED ---
Subjective Date of Service Oct 01, 2016 Subjective PULMONARY/CRITICAL CARE PROGRESS NOTE Overnight: No acute events reported. Remains off pressors. Elevated BP recorded [id number]. Today: Afebrile. No acute distress noted. No family present at bedside at time of examination. Continues to have anasarca. Labs: Na 154, K 4.0, Cr 2.17, albu 2.8; net IO +07368sL; 24hUOP 8550mL Vent: Pressure control with R24; FiO2 50, PEEP 12; Chest tube remains in place with nil output Exam Vital Signs Vital Sign - Last Date Time Temp Pulse Resp B/P Pulse Ox O2 Delivery O2 Flow Rate FiO2 10/01/16 08:16 38.0 109 28 163/79 95 Mechanical Ventilator 50 Intake and Output 09/30/16 09/30/16 10/01/16 Cumulative From/Thru 15:00 23:00 07:00 09/21/16 19:30 - 10/01/16 05:58 Intake Total 2188 ml 2955 ml 51611 ml Output Total 5400 ml 4150 ml 54924 ml Balance -3212 ml -1195 ml 07239 ml Intake Oral 60 ml IV Total 974 ml 1266 ml 59206 ml Tube Feeding 874 ml 764 ml 4689 ml Tube Irrigant 340 ml 925 ml 2451 ml Output Urine Total 5150 ml 4000 ml 51044 ml Stool Total 250 ml 150 ml 950 ml Gastric Drainage Total 1565 ml Chest Tube Drainage Total 0 ml 0 ml 335 ml # Bowel Movements 7 Exam General: Intubated and sedated; no acute distress; diffusely edematous HENT: Sclera anicteric; ETT in place, mucus membranes dry; bilateral corneal edema and conjunctival hemorrhage present Neck: Soft, obese, trachea midline by palpation; edematous; RIJ in place Cardiac: Tachycardic; no murmurs appreciated Respiratory: Adequate air flow all ruiz but faint secondary to habitus, R > L diminished sounds; faint crackles at bases bilaterally; no wheeze appreciated Abdomen: Soft, nontender, nondistended; obese; moderate pitting anasarca present Extremities: BLLE moderate pitting edema from ankles to abdomen; BLUE moderate pitting edema noted distal extremities to arms Lines: R IJ; Left PICC; bandages dry, intact : Prado in place; urine yellow; moderate-severe scrotal edema present Skin: Multiple scabbed, healed lesions noted over lower abdomen and groin; no active bleeding or exudate noted. Additional scabbed lesions noted diffusely over left shoulder anteriorly without active bleeding or exudate, continue to appear dry and healing; lesions of bilateral wrists erythematous and weeping, no active bleeding; irregular erythematous papular rash noted along anterior region of bilateral hip without bleeding or exudate Neuro: Unable to fully assess secondary to intubation and sedation; not arousable to voice Psych: Unable to assess at this time secondary to intubation and sedation Lab and Diagnostics Result Diagram: 10/01/1631410/01/16314 Microbiology CSF positive for VZV MRSA negative Buttock culture positive for staphylococcus aureus Blood cultures 2 out of 4 positive for gram positive cocci Sputum positive for staphylococcus aureus X-Rays, CTs and MRIs X-RAY CHEST ONE VIEW, PORTABLE IMPRESSION: Right thoracostomy tube. No pneumothorax or subcutaneous emphysema. Dictated by: Simona Johnson M.D. on 09/25/2016 at 18:52 Approved by: Simona Johnson M.D. on 09/25/2016 at 18:52 X-RAY CHEST ONE VIEW, PORTABLE IMPRESSION: 1. Support lines and tubes as above. 2. Bilateral pleural effusions, right greater than left. 3. Bilateral lower lung consolidation, increasing involving the right lung base and similar involving the left. Dictated by: Francisco Javier BASSETT Interpreted: Merry Robison MD on 09/23/2016 at 9:45 Transcribed by: JIM on 09/23/2016 at 9:45 Approved by: Merry Robison MD, PhD on 09/23/2016 at 16:56 X-RAY CHEST ONE VIEW, PORTABLE IMPRESSION: 1. Support lines and tubes as above. 2. Abnormal opacity within the right lung and the lung bases consistent with pulmonary edema and/or diffuse bilateral inflammatory process. Recommend clinical correlation and followup. Dictated by: Francisco Javier BASSETT Interpreted: Jammie Drake MD on 09/22/2016 at 9: 13 X-RAY CHEST ONE VIEW, PORTABLE IMPRESSION: Improved aeration of the right lung and decreased pleural effusion when compared with the prior study. Dictated by: Simona Johnson M.D. on 09/27/2016 at 8:30 12-lead ECG Normal sinus rhythm at 116 bpm, left axis deviation present, QTC 478, mild widening of QRS complex (104 ms) Additional Diagnostics DateTimeAnalyzed 04:12:00 -_ pH ____7.431 - pCO2 ___38.0__ -mmHg pO2 ___40.3__ -mmHg HCO3- ___24.9__ -mmol/L Assessment & Plan PULMONARY/CRITICAL CARE CONSULT NOTE - Hospital day 10 - Ventilator day 10 Mr. Villegas was emergently transferred from [facility] with severe sepsis likely secondary to aspiration PNA. He required intubation and sedation, fluid resuscitation, use of pressor agents, and paralytics. He was stabilized in the CCU, with pressor weaning, and continued ventilatory support. Infectious disease has been consulted to evaluate the source of infection, including the disseminated VZV. Chart review reveals multiple recent hospitalizations at [facility] and [facility] within recent days prior to this admission for reported AMS. Imaging was performed at these facilities, and requests were placed to push images to our system and to obtain records. He currently remains stable in the CCU intubated and sedated receiving fluids, pressors, and antibiotics. Repeat CT 09/22 did not reveal any acute pathologies. Echo completed 09/22, was a difficult study, but LV was grossly unremarkable with function, and RV was mildly dilated, but unremarkable in function. Valves were not well visualized. CSF PCR confirmed the presence of zoster. S. aureus has been detected in sputum , blood, and buttock lesion, indicating a staph bacteremia; Bacteroides was found within buttock lesion as well. Infectious disease consulted and following. Nephrology was consulted to evaluate kidney function and fluid status. Recent decrease in Hb/acute anemia may be indicative of dilution. Chest tube was urgently placed 09/25 secondary to rapidly progressing hypoxemia due to enlarging effusion. Estimated 1-2L drained upon tube placement, fluid yellow/ clear in color. Chest tube output decreased to zero, remains in place while mechanically ventilated. Lesions developed on bilateral wrists that appear weeping and erythematous, likely secondary to irritation from restraint and ID bracelet placement. No concern for zoster. VZV PCR Cx sent for analysis. Fevers developed 09/29-09/30. New cultures obtained. Remained afebrile after abx switched from nafcillin to meropenem. Prognosis remains guarded at this time. Assessments - Acute hypoxemic respiratory failure - Severe sepsis likely secondary to aspiration PNA, bacteremia, and disseminated zoster - Suspected aspiration PNA vs zoster pneumonitis - Disseminated zoster with meningoencephalitis - DANY - Normocytic normochromic anemia, acute - Metabolic acidosis with respiratory acidosis - Hypertensive urgency Plan: - Continue mechanical ventilation, decreasing PEEP x2 q8h as tolerated; assess daily for stability for SBT planning - Keep chest tube in place at this time; consider removal when extubated and stabilized - Decrease sedation as tolerated as day progresses; continue to advise against propofol; decrease fentanyl x10mcg q12-24h - Consider Zyprexa 10mg ODT q12h prn for agitation/restlessness - Insulin gtt on standby to maintain BG < 180 - Replenish electrolytes prn - ABGs in am - Upright CXR in am - Abx/antivirals per ID - Neupogen per oncology; discontinued - Nephrology consulted; patient in need of fluid management and diuresis, appreciate time and recs - Recommend to concentrate medications as much as possible, with D5W as fluid - Continue hep SQ at this time; with monitoring of platelets; caution when platelets fall < 50K - Labetalol 10mg IV q6h scheduled for BP/HR control; chart review home medications included amlodipine and losartan - Med rec requested to be completed; chart review reveals pt on chronic BP/HR medications; re-initiate cautiously; defer to primary team - Consideration of CT brain; MR would be ideal, if MR-compatible ventilator available - Nutrition: Tube feeds at goal - DVT: Hep q8 - GI: H2B Thank you for this consult, we will happily follow along with you at this time. If you have any additional concerns or would like us to assist in any other way , please do not hesitate to ask. Total time: 60 minutes GI Prophylaxis: H2 germaine VTE Prophylaxis: Sub-Q Heparin (Unfractionated) VTE Mechanical Devices: Intermittant Pneumatic CD Resuscitation Status: CPR: Attempt Resuscitation Attending Statement The patient was seen and examined together with Dr. Allred on 10/01/2016 and I agree with the history, exam and plan as outlined in the note above. Alfreda Allred DO Oct 01, 2016 10:34 Gerardo Thomas MD Oct 18, 2016 13:16
--- NOTE | 2016-10-01 11:17 | PCM.PNMED ---
Subjective Date of Service Oct 01, 2016 Subjective persistent hypertension but improved. remains edematous. worsening hypernatremia. Exam Vital Signs Vital Sign - Last Date Time Temp Pulse Resp B/P Pulse Ox O2 Delivery O2 Flow Rate FiO2 10/01/16 11:02 114 157/92 94 50 10/01/16 08:16 38.0 28 Mechanical Ventilator Intake and Output 09/30/16 09/30/16 10/01/16 Cumulative From/Thru 15:00 23:00 07:00 09/21/16 19:30 - 10/01/16 05:58 Intake Total 2188 ml 2955 ml 83598 ml Output Total 5400 ml 4150 ml 23444 ml Balance -3212 ml -1195 ml 50945 ml Intake Oral 60 ml IV Total 974 ml 1266 ml 62037 ml Tube Feeding 874 ml 764 ml 4689 ml Tube Irrigant 340 ml 925 ml 2451 ml Output Urine Total 5150 ml 4000 ml 29177 ml Stool Total 250 ml 150 ml 950 ml Gastric Drainage Total 1565 ml Chest Tube Drainage Total 0 ml 0 ml 335 ml # Bowel Movements 7 Exam GA: intubated, sedated. HEENT: atraumatic, chemosis, injected conjunctiva, ETT/OG in place. Heart: RRR, normal S1/S2, no murmur. Lungs: equal BS, fine crackles at bases. Abd: soft, moderate distension, decreased BS. Ext: 3+ edema. : severe scrotal swelling, hearn cath in place with yellowish urine. Skin: right IJ in place, crusted papules noted on left shoulder. Lab and Diagnostics Result Diagram: 10/01/1631410/01/16314 Microbiology CSF positive for VZV MRSA negative Buttock culture positive for staphylococcus aureus Blood cultures 2 out of 4 positive for gram positive cocci Sputum positive for staphylococcus aureus X-Rays, CTs and MRIs X-RAY CHEST ONE VIEW, PORTABLE IMPRESSION: Right thoracostomy tube. No pneumothorax or subcutaneous emphysema. Dictated by: Simona Johnson M.D. on 09/25/2016 at 18:52 Approved by: Simona Johnson M.D. on 09/25/2016 at 18:52 X-RAY CHEST ONE VIEW, PORTABLE IMPRESSION: 1. Support lines and tubes as above. 2. Bilateral pleural effusions, right greater than left. 3. Bilateral lower lung consolidation, increasing involving the right lung base and similar involving the left. Dictated by: Francisco Javier BASSETT Interpreted: Merry Robison MD on 09/23/2016 at 9:45 Transcribed by: JIM on 09/23/2016 at 9:45 Approved by: Merry Robison MD, PhD on 09/23/2016 at 16:56 X-RAY CHEST ONE VIEW, PORTABLE IMPRESSION: 1. Support lines and tubes as above. 2. Abnormal opacity within the right lung and the lung bases consistent with pulmonary edema and/or diffuse bilateral inflammatory process. Recommend clinical correlation and followup. Dictated by: Francisco Javier BASSETT Interpreted: Jammie Drake MD on 09/22/2016 at 9: 13 X-RAY CHEST ONE VIEW, PORTABLE IMPRESSION: Improved aeration of the right lung and decreased pleural effusion when compared with the prior study. Dictated by: Simona Johnson M.D. on 09/27/2016 at 8:30 12-lead ECG Normal sinus rhythm at 116 bpm, left axis deviation present, QTC 478, mild widening of QRS complex (104 ms) Additional Diagnostics DateTimeAnalyzed 04:12:00 -_ pH ____7.431 - pCO2 ___38.0__ -mmHg pO2 ___40.3__ -mmHg HCO3- ___24.9__ -mmol/L Assessment & Plan 1. DANY on CKD due to nonoliguric ATN cause of ATN is rather multifactorial: sepsis, medications. 2. Hypervolemic hypernatremia. 3. Anasarca. 4. Septic shock/Staphylococcus bacteremia. - now febrile, Tmax 38.6 5. Disseminated zoster. 6. Diuretic-induced hypokalemia. 7. h/o CLL. 8. Elevated blood pressure, likely volume related. Plan: continue lasix 80 mg IV q 12hr. free water flushes 100 ml q 1 hr, d5w 60 ml/hr. repeat Na at 1600 Double concentrate all IV meds. Meds to be mixed in d5w. GI Prophylaxis: H2 germaine VTE Prophylaxis: Sub-Q Heparin (Unfractionated) VTE Mechanical Devices: Intermittant Pneumatic CD Resuscitation Status: CPR: Attempt Resuscitation Susan Ross MD Oct 01, 2016 11:17
[2016-10-01] MEDS: Midazolam 100 mg/100 mL Premix IV PRN (11:19)
[2016-10-01] MEDS: Micafungin Inj 150 MG in 0.9% Sodium Chloride 100 ML IV SCH (11:46)
--- NOTE | 2016-10-01 12:55 | ABG ---
DateTimeAnalyzed 12:49:00 -_ pH ____7.498 - pCO2 ___36.0__ -mmHg pO2 ___36.6__ -mmHg HCO3- ___27.7__ -mmol/L ABE ____4.6__ -mmol/L tHb ____8.3__ -g/dL O2Hb ___72.0__ -% COHb ____1.4__ -% MetHb ____1.0__ -% sO2 ___73.8__ -% FIO2 ___60.0__ -% PEEP ___12.0__ -cmH2O Drawn By NSG - Date/Time Notified____ 12:55:00 -_ Spontaneous_RR ___35.0__ -b/min Oxygen Device 1 VENTILATOR - Notified By RC - Notified Whom __BARRETT - B 770 -mmHg tO2 ____8.4__ -Vol% Jeevan test N/A -
[2016-10-01] MEDS ORDERED: Acetaminophen IV 1,000 MG in IV Premix 1 EACH IV ONE (13:30)
--- NOTE | 2016-10-01 14:02 | DRSVH ---
PROCEDURE: X-RAY CHEST ONE VIEW, PORTABLE ([id number]) INDICATIONS: intubated, chest tube TECHNIQUE: One view of the chest was acquired. COMPARISON: [facility], CR, XR CHEST 1VW (PORTABLE), 09/30/2016, 5:40. FINDINGS: Surgical changes and devices: Stable position of ETT, nasogastric tube, left PICC, right IJ CVL and r ight pleural drain. Lungs and pleura: Pulmonary edema persistent has been slight interval decrease in the mid/basilar air space opacities, small pleural effusions redemonstrated. Mediastinum: Mediastinal contours appear normal. Heart size is normal. Bones and chest wall: No suspicious bony lesions. Overlying soft tissues appear unremarkable. IMPRESSION: 1. Slight interval decrease in basilar air space opacities otherwise persistent edema and/or pneumoni a. Dictated by: Francisco Javier Antonio [facility] Interpreted: Merry Robison MD on 10/01/2016 at 14:00 Transcribed by: JIM on 10/01/2016 at 14:01 Approved by: Merry Robison MD, PhD on 10/01/2016 at 17:26
[2016-10-01 16:29] LABS: Magnesium 2.1 mg/dL (1.6-2.6)
--- NOTE | 2016-10-01 17:37 | ABG ---
DateTimeAnalyzed 17:31:00 -_ pH ____7.405 - 7.350 7.450 pCO2 ___45.9__ -mmHg 35.0 45.0 pO2 ___39.4__ -mmHg 69.0 116 HCO3- ___28.1__ -mmol/L ABE ____3.6__ -mmol/L tHb ____7.1__ -g/dL O2Hb ___70.9__ -% COHb ____1.4__ -% MetHb ____1.0__ -% sO2 ___72.6__ -% FIO2 ___65.0__ -% PRVC 24 - PEEP ___12.0__ -cmH2O Vt __540.0__ -L Drawn By gj - Date/Time Notified____ 17:37:00 -_ Spontaneous_RR ___24.0__ -b/min Oxygen Device 1 VENTILATOR - Notified Whom KENDREGAN - B 771 -mmHg tO2 ____7.1__ -Vol% Jeevan test N/A -
[2016-10-01] MEDS ORDERED: Potassium Chloride 20 mEq/15 mL 15mL Oral Soln PO ONE (18:50)
--- NOTE | 2016-10-01 18:50 | NUR ---
FEBRILE/SEDATION/RESPIRATORY/HEMODYNAMICS Patient spiked fever of 39.3 orally at 1230 vitals. Order for IV Tylenol received, administered, and ice packs applied. Within 1 hour, patient's fever down to 37.6 orally. Will continue to monitor for fevers. Attempted to wean sedation slowly this shift, but patient did not tolerate, became tachycardic, hypertensive, tachypneic and SpO2 decreased to 87%. VBG drawn for analysis, which showed significant change to blood gas values, so vent settings changed to PRVC w/ 60% FiO2, 12 PEEP, 540 Vt and 24 Rate. Patient tolerated this well for approximately 1 hour, so VBG drawn again, which showed this change had corrected blood gases. However, patient became hypotensive suddenly, requiring fluid bolus. Dr. Thomas contacted, recommended dropping PEEP and Vt to help increase BP. RT decreased PEEP to 10, Vt to 500, which pt tolerated well. Order for norepinephrine received, currently on hold, as BPs have been responsive to fluid boluses. Will continue to monitor for fevers, BP and respiratory status. Current sedation w/ Fentanyl at 100 mcg/hr and Versed at 2 mg/hr. Patient has tolerated this drop in sedation since 1700, but will continue to monitor for increased needs.
--- NOTE | 2016-10-01 19:12 | PCM.PNMED ---
Subjective Date of Service Oct 01, 2016 Amy Villegas is a 76-year-old male with CLL currently on chemotherapy with past medical history significant for likely COPD, recent visit to [facility] in [place], and ongoing hypertension directly transferred to [facility] from [facility] due to acute septic shock secondary to presumed aspiration pneumonia. Hospital day 11. Overnight: Afebrile overnight. Continues on fentanyl and versed gtt for sedation. Urine output of 1200 mls overnight. Today: Patient remains intubated and sedated. Fentanyl and versed gtt for sedation. Tube feeds at goal and free water flushes increased with minimal residuals. ROS is not obtainable. Exam Vital Signs Vital Sign - Last Date Time Temp Pulse Resp B/P Pulse Ox O2 Delivery O2 Flow Rate FiO2 10/01/16 04:16 98 175/85 96 50 10/01/16 03:59 37.1 25 Mechanical Ventilator Intake and Output 09/30/16 09/30/16 10/01/16 Cumulative From/Thru 15:00 23:00 07:00 09/21/16 19:30 - 10/01/16 05:58 Intake Total 2188 ml 2955 ml 94402 ml Output Total 5400 ml 4150 ml 37168 ml Balance -3212 ml -1195 ml 39224 ml Intake Oral 60 ml IV Total 974 ml 1266 ml 64415 ml Tube Feeding 874 ml 764 ml 4689 ml Tube Irrigant 340 ml 925 ml 2451 ml Output Urine Total 5150 ml 4000 ml 19629 ml Stool Total 250 ml 150 ml 950 ml Gastric Drainage Total 1565 ml Chest Tube Drainage Total 0 ml 0 ml 335 ml # Bowel Movements 7 Exam Gen: Intubated and sedated, anasarca, no restraints. HEENT: PERRLA, corneal edema, large neck, R IJ in place. Cardio: Regular rate and rhythm, no murmurs noted. Respiratory: Faint crackles in bilateral bases. Mechanically ventilated. Right chest tube in place. Abdomen: Firm, distended, normal bowel sounds. : Prado in place. Scrotal edema. Skin: Shingles on the left shoulder anteriorly and superiorly currently crusted. Extremities: Lower extremity edema and anasarca. Neurologic: Patient sedated. Psych: Patient sedated. Lab and Diagnostics Neutrophils 82 Calcium 8.0 Magnesium 1.7 Procalcitonin Lactic Acid 2.0 Result Diagram: 10/01/1631410/01/16314 Microbiology CSF positive for VZV MRSA negative Buttock culture positive for staphylococcus aureus Blood cultures 2 out of 4 positive for gram positive cocci Sputum positive for staphylococcus aureus Clostridium difficile negative X-Rays, CTs and MRIs X-RAY CHEST ONE VIEW, PORTABLE IMPRESSION: Right thoracostomy tube. No pneumothorax or subcutaneous emphysema. Dictated by: Simona Johnson M.D. on 09/25/2016 at 18:52 Approved by: Simona Johnson M.D. on 09/25/2016 at 18:52 X-RAY CHEST ONE VIEW, PORTABLE IMPRESSION: 1. Support lines and tubes as above. 2. Bilateral pleural effusions, right greater than left. 3. Bilateral lower lung consolidation, increasing involving the right lung base and similar involving the left. Dictated by: Francisco Javier BASSETT Interpreted: Merry Robison MD on 09/23/2016 at 9:45 Transcribed by: JIM on 09/23/2016 at 9:45 Approved by: Merry Robison MD, PhD on 09/23/2016 at 16:56 X-RAY CHEST ONE VIEW, PORTABLE IMPRESSION: 1. Support lines and tubes as above. 2. Abnormal opacity within the right lung and the lung bases consistent with pulmonary edema and/or diffuse bilateral inflammatory process. Recommend clinical correlation and followup. Dictated by: Francisco Javier BASSETT Interpreted: Jammie Drake MD on 09/22/2016 at 9: 13 X-RAY CHEST ONE VIEW, PORTABLE IMPRESSION: Improved aeration of the right lung and decreased pleural effusion when compared with the prior study. Dictated by: Simona Johnson M.D. on 09/27/2016 at 8:30 12-lead ECG Normal sinus rhythm at 116 bpm, left axis deviation present, QTC 478, mild widening of QRS complex (104 ms) Additional Diagnostics DateTimeAnalyzed 04:12:00 -_ pH ____7.431 - pCO2 ___38.0__ -mmHg pO2 ___40.3__ -mmHg HCO3- ___24.9__ -mmol/L Assessment & Plan Magdaleno Villegas is a 76-year-old male with CLL currently on chemotherapy with past medical history significant for likely COPD, recent visit to [facility] in [place], and ongoing hypertension directly transferred to [facility] from [facility] due to acute septic shock secondary to presumed aspiration pneumonia. Hospital day 11. 1. Severe sepsis with shock, present on admission, improving. -Etiology multifactorial including disseminated zoster, staph bacteremia, and decubitus ulcer on his buttocks. -At [facility] patient became hypotensive and unresponsive to fluids and was started on three pressors and transferred to [facility]. -On admission here patient tachycardic, pro-calcitonin 21.82, lactic acid of 4.8 (lactic acid at [facility] was 1.4). -Norepinephrine titrated off on 09/28 at 2000. -Blood cultures and lumbar puncture as below. -Dr. Ritter consulted, appreciate the expertise. 2. Staphylococcus bacteremia, present on admission active. - Blood cultures 2 out of 4 positive. - Repeat blood cultures drawn with no growth on 09/27. - Nafcillin continuos infusion from 09/24-09/30. - Meropenem started 09/30. - Dr. Ritter consulted, appreciate time and expertise. 3. Disseminated zoster, present on admission, active. -Evidence of multiple lesions in multiple dermatomes. Currently crusted. -Patient has encephalitis, hepatitis, and pneumonitis secondary to disseminated zoster -Continue on IV acyclovir, dose adjusted for renal failure by Dr. Ritter -Lumbar puncture with high opening pressure. CSF clear, WBC 19, RBC 2, Mononuclear WBCs 100, Polynuclear WBCs 0, Glucose 75, Protein 58. -Dr. Ritter consulted, appreciate the expertise. 4. Acute hypoxic respiratory failure, present on admission, active. -Patient presented with severe hypoxia and was requiring 100% FiO2, 12 of PEEP, respiratory rate of 35, and tidal volumes were initially 600 mL but was quickly taken down to 470 mL. -Chest tube placed 09/25 due to hypoxemia secondary to large pleural effusion. -Patient also has suspected underlying COPD which will complicate his pulmonary course. -Ventilator management per ICU team, appreciate the expertise 5. Lactic acidosis, present on admission, active. -Etiology is likely infectious but patient's CLL likely a contributing factor. -Lactic acid 4.8 on admission. -Will continue to monitor daily. 6. Acute kidney injury, present on admission, improving. -Patient presented to [facility] with a creatinine of 0.8, however over the subsequent days prior to his transfer here he was having a slow increase in his creatinine up to 1.6 and after pressure support his creatinine on arrival here was 2.21. -This acute kidney injury is likely due to hypoperfusion/prerenal secondary to dehydration and excessive pressure support with 2 peripheral vasoconstrictors and Levophed. Likely has a degree of ATN. -Lasix increased to 80mg IV Q12H. -UOP 1700 ml overnight. -Continue to monitor I and O and daily BMP -No indication for dialysis at this time -Nephrology consulted. Appreciate time and expertise. 7. Hypernatremia, not present on admission, active. -Lasix as above. -Free water flushes increased to 300 ml Q4H. -D5W 60 ml/hr. -Meds to be mixed in d5w. -Continue to monitor with BMP. 7. Chronic lymphocytic leukemia, present on admission, undergoing oral chemotherapy prior to hospitalization. -No records available thus far but patient appears to be on current chemotherapy per family. -Neupogen given per Dr. Benavides's recommendations. -Heme/Onc consulted. Appreciate time and expertise. 8. Elevated liver enzymes, present on admission, improving. -Etiology likely multifactorial including disseminated zoster and shock liver. -Liver enzymes trending down. 9. Acute encephalopathy, present on admission, active. -Patient has a recent history of acute confusion with hospital admission and resolution of confusion during those stays. -Etiology likely secondary to sepsis, infection, and VZV encephalitis. -Sedation titrated down but continues on fentanyl and versed. -CT head showed no acute intracranial process. -Lumbar puncture with high opening pressure. CSF clear, WBC 19, RBC 2, Mononuclear WBCs 100, Polynuclear WBCs 0, Glucose 75, Protein 58. 10. Decubitus ulcer, present on admission, active. -Wound culture grew bacteroides fragillis. -Metronidazole 1000 mg Q12H. -Wound care consulted. Disposition: Patient remains critically ill and in the CCU. GI Prophylaxis: H2 germaine VTE Prophylaxis: Sub-Q Heparin (Unfractionated) VTE Mechanical Devices: Intermittant Pneumatic CD Resuscitation Status: CPR: Attempt Resuscitation Attending Statement The patient was seen and examined together with Dr. Lama on 10/01/2016 and I agree with the history, exam and plan as outlined in the note above. . MATTHEW LAMA DO Oct 01, 2016 07:52 Coleman Velásquez MD Oct 03, 2016 14:51
[2016-10-01] MEDS: DEXTROSE 5% IV SCH (20:51)
[2016-10-01] MEDS: ACYCLOVIR IV SCH (20:51)
[2016-10-01] MEDS: 0.9% Sodium Chloride 500 ML IV PRN (20:59)
[2016-10-01] MEDS: Sodium Chloride LOK Flush 10 mL Syringe IVFLUSH PRN ×2 (21:20→22:17)
[2016-10-01] MEDS: Labetalol 5 mg/mL 20 mL Inj IVPUSH SCH (22:17)
[2016-10-02] VITALS (11 sets, daily range): BP systolic 116–161; BP diastolic 50–74; PULSE 93–108; RESP 24–35; O2SAT 92–96
[2016-10-02] MEDS: Chlorhexidine 0.12% 15 mL Oral Solution MT SCH ×6 (00:22→20:58)
[2016-10-02] MEDS: fentaNYL 2,500 mCg/250 mL 2,500 MCG in IV Premix 1 EACH IV PRN (02:31)
[2016-10-02] MEDS: Sodium Chloride LOK Flush 10 mL Syringe IVFLUSH PRN (02:33)
[2016-10-02] MEDS: Labetalol 5 mg/mL 20 mL Inj IVPUSH SCH ×4 (02:33→20:58)
[2016-10-02] MEDS: Insulin Human REGular 300 Unit/3 mL Inj SUBQ SCH ×4 (02:37→21:02)
--- NOTE | 2016-10-02 02:59 | NUR ---
P) Fever/Heparin/sedation Pt. febrile again tonight, T-max so far 37.5c orally, platelet count was low again at 79, pt. using accessory muscles and abdominal muscles to breath, suctioning ET tube, getting thick, Yellow phlegm with a small amount of blood. I) Contacted Dr. Benitez, heparin D/C'd, passive cooling measures, titrating sedation for more relaxation on vent. E) Resting more quietly, heart rate currently in the 80's and BP no longer hypertensive.
[2016-10-02 04:18] LABS: Mean Corpuscular Hemoglobin 27.8 pg (27.0-35.0); Mean Corpuscular Volume 85.5 fL (81-100); Platelet Count 93 bil/L (150-400)
--- NOTE | 2016-10-02 04:35 | ABG ---
DateTimeAnalyzed 04:30:00 -_ pH ____7.467 - 7.350 7.450 pCO2 ___39.9__ -mmHg 35.0 45.0 pO2 ___66.8__ -mmHg 69.0 116 HCO3- ___28.5__ -mmol/L 22.0 26.0 ABE ____4.8__ -mmol/L -2.0 2.0 tHb ____7.5__ -g/dL O2Hb ___92.9__ -% COHb ____1.5__ -% MetHb ____1.0__ -% sO2 ___95.3__ -% 25.0 FIO2 ___60.0__ -% PRVC 524 - PEEP ___10.0__ -cmH2O Set_RR ___24.0__ -b/min Vt __500.0__ -L Drawn By RB - Spontaneous_RR ___30.0__ -b/min Oxygen Device 1 VENTILATOR - Notified By RB - Notified Whom RN - B 773 -mmHg tO2 ____9.9__ -Vol% Jeevan test _Positive -
[2016-10-02 04:47] LABS: Phosphorus 4.2 mg/dL (2.5-4.9)
[2016-10-02 04:48] LABS: BASOPHILS % (AUTO) 0 % (0-3); EOSINOPHILS % (AUTO) 0 % (0-5); MONOCYTES % (AUTO) 3 % (4-12); NEUTROPHILS % (AUTO) 74 % (40-74)
[2016-10-02] MEDS: Senna Leaf Extract 528 mg/15 mL Syrup PO SCH ×2 (08:29→20:58)
[2016-10-02] MEDS: Furosemide 10 mg/mL 10 mL Inj IVPUSH SCH ×2 (08:29→20:58)
[2016-10-02] MEDS: LacriLube S.O.P. 3.5 Gm Ophthalmic Ointment BOTH_EYES SCH ×2 (08:30→20:48)
[2016-10-02] MEDS: Meropenem Inj 2,000 MG in 0.9% Sodium Chloride 100 ML IV SCH ×2 (08:30→20:59)
[2016-10-02] MEDS: Heparin 5,000 Unit/mL Inj SUBQ SCH ×2 (08:30→21:00)
[2016-10-02] MEDS: Micafungin Inj 150 MG in 0.9% Sodium Chloride 100 ML IV SCH (08:31)
[2016-10-02] MEDS: Famotidine Inj 20 MG in IV Premix 1 EACH IV SCH (09:27)
[2016-10-02] MEDS: DEXTROSE 5% IV SCH ×2 (09:28→20:59)
[2016-10-02] MEDS: ACYCLOVIR IV SCH ×2 (09:28→20:59)
--- NOTE | 2016-10-02 10:10 | PCM.PNMED ---
Subjective Date of Service Oct 02, 2016 Subjective PULMONARY/CRITICAL CARE PROGRESS NOTE Overnight: Mild fever T37.5. Hypotensive episodes, responsive to fluid boluses. Labile in BP, HR. Today: Afebrile. No acute distress noted, but observed to be using accessory muscles for respirations. No family present at bedside at time of examination. Continues to have anasarca. Labs: Plt 93; Na 155, K 4.1, Cr 1.90, LA 1.8; Mg 2.0; Net IO +[id number], 24hUOP 7500mL Vent: PRVC FiO2 60, PEEP 12, R 24, Vt 480; Chest tube remains in place with nil output Exam Vital Signs Vital Sign - Last Date Time Temp Pulse Resp B/P Pulse Ox O2 Delivery O2 Flow Rate FiO2 10/02/16 06:07 99 150/66 95 60 10/02/16 04:00 37.2 29 Mechanical Ventilator Intake and Output 10/01/16 10/01/16 10/02/16 Cumulative From/Thru 15:00 23:00 07:00 09/21/16 19:30 - 10/02/16 06:28 Intake Total 2663 ml 3823 ml 42703 ml Output Total 3600 ml 3470 ml 06896 ml Balance -937 ml 353 ml 08299 ml Intake Oral 60 ml IV Total 1287 ml 1561 ml 05498 ml Tube Feeding 852 ml 1010 ml 6551 ml Tube Irrigant 524 ml 1252 ml 4227 ml Output Urine Total 3500 ml 3300 ml 34022 ml Stool Total 100 ml 150 ml 1200 ml Gastric Drainage Total 1565 ml Chest Tube Drainage Total 0 ml 20 ml 355 ml # Bowel Movements 7 Exam General: Intubated and sedated; no acute distress; diffusely edematous, but improving; no responses to stimuli HENT: Sclera anicteric; ETT in place, mucus membranes dry; bilateral corneal edema and conjunctival hemorrhage present Neck: Soft, obese, trachea midline by palpation; edematous; RIJ in place Cardiac: Tachycardic; no murmurs appreciated Respiratory: Sounds faint secondary to habitus, R > L diminished sounds; faint crackles at bases bilaterally; no wheeze appreciated Abdomen: Soft, nontender, nondistended; obese; Mild- moderate pitting anasarca present Extremities: BLLE moderate pitting edema from ankles to abdomen; BLUE moderate pitting edema noted distal extremities to arms Lines: R IJ; Left PICC; bandages dry, intact : Prado in place; urine yellow; moderate-severe scrotal edema present Skin: Multiple scabbed, healed lesions noted over lower abdomen and groin; no active bleeding or exudate noted. Additional scabbed lesions noted diffusely over left shoulder anteriorly without active bleeding or exudate, continue to appear dry and healing; lesions of bilateral wrists erythematous and weeping, no active bleeding; irregular erythematous papular rash noted along anterior region of bilateral hip without bleeding or exudate Neuro: Unable to fully assess secondary to intubation and sedation; not arousable to voice or sternal rub Psych: Unable to assess at this time secondary to intubation and sedation Lab and Diagnostics Result Diagram: 10/02/16 0400 10/02/16 0400 Microbiology CSF positive for VZV MRSA negative Buttock culture positive for staphylococcus aureus Blood cultures 2 out of 4 positive for gram positive cocci Sputum positive for staphylococcus aureus Clostridium difficile negative X-Rays, CTs and MRIs X-RAY CHEST ONE VIEW, PORTABLE IMPRESSION: Right thoracostomy tube. No pneumothorax or subcutaneous emphysema. Dictated by: Simona Johnson M.D. on 09/25/2016 at 18:52 Approved by: Simona Johnson M.D. on 09/25/2016 at 18:52 X-RAY CHEST ONE VIEW, PORTABLE IMPRESSION: 1. Support lines and tubes as above. 2. Bilateral pleural effusions, right greater than left. 3. Bilateral lower lung consolidation, increasing involving the right lung base and similar involving the left. Dictated by: Francisco Javier BASSETT Interpreted: Merry Robison MD on 09/23/2016 at 9:45 Transcribed by: JIM on 09/23/2016 at 9:45 Approved by: Merry Robison MD, PhD on 09/23/2016 at 16:56 X-RAY CHEST ONE VIEW, PORTABLE IMPRESSION: 1. Support lines and tubes as above. 2. Abnormal opacity within the right lung and the lung bases consistent with pulmonary edema and/or diffuse bilateral inflammatory process. Recommend clinical correlation and followup. Dictated by: Francisco Javier BASSETT Interpreted: Jammie Drake MD on 09/22/2016 at 9: 13 X-RAY CHEST ONE VIEW, PORTABLE IMPRESSION: Improved aeration of the right lung and decreased pleural effusion when compared with the prior study. Dictated by: Simona Johnson M.D. on 09/27/2016 at 8:30 12-lead ECG Normal sinus rhythm at 116 bpm, left axis deviation present, QTC 478, mild widening of QRS complex (104 ms) Additional Diagnostics DateTimeAnalyzed 04:12:00 -_ pH ____7.431 - pCO2 ___38.0__ -mmHg pO2 ___40.3__ -mmHg HCO3- ___24.9__ -mmol/L Assessment & Plan PULMONARY/CRITICAL CARE CONSULT NOTE - Hospital day 11 - Ventilator day 11 Mr. Villegas was emergently transferred from [facility] with severe sepsis likely secondary to aspiration PNA. He required intubation and sedation, fluid resuscitation, use of pressor agents, and paralytics. He was stabilized in the CCU, with pressor weaning, and continued ventilatory support. Infectious disease has been consulted to evaluate the source of infection, including the disseminated VZV. Chart review reveals multiple recent hospitalizations at [place] and [facility] within recent days prior to this admission for reported AMS. Imaging was performed at these facilities, and requests were placed to push images to our system and to obtain records. He currently remains stable in the CCU intubated and sedated receiving fluids, pressors, and antibiotics. Repeat CT 09/22 did not reveal any acute pathologies. Echo completed 09/22, was a difficult study, but LV was grossly unremarkable with function, and RV was mildly dilated, but unremarkable in function. Valves were not well visualized. CSF PCR confirmed the presence of zoster. S. aureus has been detected in sputum , blood, and buttock lesion, indicating a staph bacteremia; Bacteroides was found within buttock lesion as well. Infectious disease consulted and following. Nephrology was consulted to evaluate kidney function and fluid status. Recent decrease in Hb/acute anemia may be indicative of dilution. Chest tube was urgently placed 09/25 secondary to rapidly progressing hypoxemia due to enlarging effusion. Estimated 1-2L drained upon tube placement, fluid yellow/ clear in color. Chest tube output decreased to zero, remains in place while mechanically ventilated. Lesions developed on bilateral wrists that appear weeping and erythematous, likely secondary to irritation from restraint and ID bracelet placement. No concern for zoster. VZV PCR Cx sent for analysis. Fevers developed 09/29-09/30. New cultures obtained. Remained afebrile after abx switched from nafcillin to meropenem. Fevers noted intermittently 10/01-, ice packs and cooling measures instituted in addition to APAP IV. Prognosis remains guarded at this time. Immediate concerns include patient's inability to be weaned off sedation and inability to arouse to stimuli. It is unclear the level of cognitive function that is present. Immediate plans include potential CT/MR brain Wednesday with contrast in hopes Cr will improve to tolerate contrast; EEG tentative 10/02. Echo LTD when avail. If EEG completed, consideration of addition paralytics, increasing sedation, and utilizing pressors to better manage ventilatory support, as patient has not been tolerating mechanical ventilation well. Palliative care has kindly consulted and will be crucial in navigating family understanding and expectations. Assessments - Acute hypoxemic respiratory failure; ongoing - Severe sepsis likely secondary to aspiration PNA, bacteremia, and disseminated zoster; under therapy - Suspected aspiration PNA vs zoster pneumonitis; under therapy - Disseminated zoster with meningoencephalitis; under therapy - DANY; improving - Normocytic normochromic anemia, acute; stable - Metabolic acidosis with respiratory acidosis - Hypertensive urgency Plan: - Continue mechanical ventilation, decreasing PEEP x2 q8-12h as tolerated; assess daily for stability for SBT planning - Keep chest tube in place at this time; consider removal when extubated and stabilized - Decrease sedation as tolerated as day progresses - Consider Zyprexa 10mg ODT q12h prn for agitation/restlessness - Insulin gtt on standby to maintain BG < 180 - Replenish electrolytes prn - ABGs in am - Upright CXR in am - Abx/antivirals per ID - Neupogen per oncology; discontinued - Recommend to concentrate medications as much as possible, with D5W as fluid - Labetalol 10mg IV q6h scheduled for BP/HR control; chart review home medications included amlodipine and losartan; this may need to be adjusted if HR /BP response to intravascular depletion vs AF - Med rec requested to be completed; chart review reveals pt on chronic BP/HR medications; re-initiate cautiously; defer to primary team - Nephrology consulted; patient in need of fluid management and diuresis, appreciate time and recs; patient net +, but appears intravascularly depleted, which may be contributing to persistent tachycardia and episodes of hypotension - Consideration of CT brain; MR would be ideal, if MR-compatible ventilator available; in addition to EEG if possible considering level sedation - Palliative care consultation - EEG when possible - Echo LTD - May require paralytics, increase in sedation, and re-institution of norepi to manage BP effects in order to better manage ventilation; will plan for EEG to be completed prior to these changes if patient remains stable - Nutrition: Tube feeds at goal - DVT: SCDs - GI: H2B Thank you for this consult, we will happily follow along with you at this time. If you have any additional concerns or would like us to assist in any other way , please do not hesitate to ask. Total time: 60 minutes Pain Evaluation: Adequate Pain Control GI Prophylaxis: H2 germaine VTE Prophylaxis: Sub-Q Heparin (Unfractionated) VTE Mechanical Devices: Intermittant Pneumatic CD Resuscitation Status: CPR: Attempt Resuscitation Attending Statement The patient was seen and examined together with Dr. Allred on 10/02/2016 and I agree with the history, exam and plan as outlined in the note above. Alfreda Allred DO Oct 02, 2016 07:59 Gerardo Thomas MD Oct 18, 2016 13:23
--- NOTE | 2016-10-02 10:36 | PROG NOTE ---
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 INTERVAL HISTORY: The patient remains intubated and sedated. Efforts to lighten his sedation result in some agitation but no evidence of ability to follow commands or interact in any way. He remains on fairly high FiO2 was 60% FiO2 and 12 of PEEP and is not making much headway with respect to his respiratory status. He is currently off vasopressor agents. Considerable discussion was held this morning regarding the next appropriate steps to take in the management of this complex patient. We discussed him for a half an hour or so before and during ICU rounds. PHYSICAL EXAMINATION: Reveals a critically ill gentleman lying supine in the ICU. He was febrile again yesterday around noon to 39 degrees, and is now afebrile. Temperature now 37.5, pulse 100. He is over breathing the ventilator at 35. The ventilator is set at 60 and 12, saturating only 92%. Blood pressure 161/70. His eyes have continued hemorrhagic conjunctivitis. Oral endotracheal tube, orogastric tube in the usual position. No herpes lesions seen on the lips. Neck without notable abnormality. A right subclavian central line is present as is the left PICC. He also has a right-sided chest tube and a Prado catheter. The lungs are notable for decreased breath sounds and rales bilaterally. Cardiac tones with a 2/6 murmur as was heard before. The abdomen is distended and basically nontender. There is an erythematous macular rash which extends along the flanks, and up onto the back. Additionally, the patient has an erythematous rather papular rash around both wrists which may be related to restraints and ecchymosis. The zoster rash that had been present on his left shoulder as well as onto his face and lower abdomen has basically resolved. He has considerable peripheral edema with preserved perfusion. LABORATORIES: Include a white count of 10,000, platelet count up to 93,000. Creatinine 1.9 which is improving. Sodium 155. Procalcitonin is 0.57 down from a level of 31 ten days ago, so dramatically improved there. Liver function tests basically normal. Lipase not repeated recently. Urinalysis with 6-10 white cells. Repeat Fungitell is pending. QuantiFERON Gold was indeterminate. Sputum positive for Staph aureus and recall that his blood cultures on admission grew Staph aureus, as did the culture of a decubitus ulcer. His CSF and his skin were PCR positive for VZV. We attempted to repeat VZV PCR of one of the wrist lesions but this was frozen accidentally and is not available and will not be done. A C. difficile stool was done on the and was negative. Fungal blood cultures from yesterday are pending. A urine culture from yesterday is growing yeast in high concentration. Our most recent chest x-ray shows bibasilar infiltrates. IMPRESSION: This is an amazingly complex case of a gentleman with a poor prognosis CLL who presented with disseminated zoster including his liver scan and brain. He also had Staph aureus in his blood as well as in his sputum. He has been aggressively treated throughout his long hospital stay for both the Staph aureus bacteremia and the VZV encephalitis and disseminated disease. His VZV skin disease is basically normal but his brain continues abnormal as we cannot wake the patient up and wonder about his underlying neurologic injury related to the VZV encephalitis. The patient has had ups and downs with his hemodynamics and recently has had recrudescent fevers. We switched his antibiotics from nafcillin which was narrowly targeting the MSSA to meropenem to cover a wide host of nosocomial pathogens, but we have no evidence that this in fact covered any new organisms. Just in the past 48 hours, we have discovered that both the sputum and urine are at least colonized with yeast which is undoubtedly Gisel and this has raised concerns about disseminated Gisel in this immunosuppressed ICU patient with life-threatening viral as well as staphylococcal infections. RECOMMENDATIONS: 1. Yesterday afternoon I added micafungin and I would continue that. 2. We await the fungal blood cultures which are pending. 3. I would continue with fairly high-dose acyclovir. A recent level came back at 12 and this was when his creatinine was much worse so it is hard to interpret but I think we are in the right ball park in terms of our acyclovir dosing. 4. Continue with meropenem at this point. 5. This case discussed extensively on ICU rounds. I think we need to make an effort to get a better picture of his brain and if possible we could get an MRI scan with contrast would be the ultimate study, but if not, a CT with contrast would be second choice. 6. I agree with suggestion to get an EEG of the brain. 7. This case discussed exhaustively during rounds.
[2016-10-02] MEDS ORDERED: Furosemide 10 mg/mL 10 mL Inj IVPUSH ONE (11:10)
--- NOTE | 2016-10-02 11:14 | PCM.PNMED ---
Subjective Date of Service Oct 02, 2016 Subjective (+) anasarca, somewhat improved. persistent hypernatremia. Tmax 39.3 C Exam Vital Signs Vital Sign - Last Date Time Temp Pulse Resp B/P Pulse Ox O2 Delivery O2 Flow Rate FiO2 10/02/16 10:17 88 151/55 95 60 10/02/16 08:28 37.5 35 Mechanical Ventilator Intake and Output 10/01/16 10/01/16 10/02/16 Cumulative From/Thru 15:00 23:00 07:00 09/21/16 19:30 - 10/02/16 06:28 Intake Total 2663 ml 3823 ml 40167 ml Output Total 3600 ml 3470 ml 19544 ml Balance -937 ml 353 ml 14970 ml Intake Oral 60 ml IV Total 1287 ml 1561 ml 63574 ml Tube Feeding 852 ml 1010 ml 6551 ml Tube Irrigant 524 ml 1252 ml 4227 ml Output Urine Total 3500 ml 3300 ml 10273 ml Stool Total 100 ml 150 ml 1200 ml Gastric Drainage Total 1565 ml Chest Tube Drainage Total 0 ml 20 ml 355 ml # Bowel Movements 7 Exam GA: intubated, sedated. HEENT: atraumatic, chemosis, injected conjunctiva, ETT/OG in place. Heart: RRR, normal S1/S2, no murmur. Lungs: equal BS, fine crackles at bases. Abd: soft, moderate distension, decreased BS. Ext: 2+ edema, sacral swelling. : severe scrotal swelling, hearn cath in place with yellowish urine. Skin: right IJ in place, crusted papules noted on left shoulder. Lab and Diagnostics Result Diagram: 10/02/16 0400 10/02/16 0400 Microbiology CSF positive for VZV MRSA negative Buttock culture positive for staphylococcus aureus Blood cultures 2 out of 4 positive for gram positive cocci Sputum positive for staphylococcus aureus Clostridium difficile negative X-Rays, CTs and MRIs X-RAY CHEST ONE VIEW, PORTABLE IMPRESSION: Right thoracostomy tube. No pneumothorax or subcutaneous emphysema. Dictated by: Simona Johnson M.D. on 09/25/2016 at 18:52 Approved by: Simona Johnson M.D. on 09/25/2016 at 18:52 X-RAY CHEST ONE VIEW, PORTABLE IMPRESSION: 1. Support lines and tubes as above. 2. Bilateral pleural effusions, right greater than left. 3. Bilateral lower lung consolidation, increasing involving the right lung base and similar involving the left. Dictated by: Francisco Javier BASSETT Interpreted: Merry Robison MD on 09/23/2016 at 9:45 Transcribed by: JIM on 09/23/2016 at 9:45 Approved by: Merry Robison MD, PhD on 09/23/2016 at 16:56 X-RAY CHEST ONE VIEW, PORTABLE IMPRESSION: 1. Support lines and tubes as above. 2. Abnormal opacity within the right lung and the lung bases consistent with pulmonary edema and/or diffuse bilateral inflammatory process. Recommend clinical correlation and followup. Dictated by: Francisco Javier BASSETT Interpreted: Jammie Drake MD on 09/22/2016 at 9: 13 X-RAY CHEST ONE VIEW, PORTABLE IMPRESSION: Improved aeration of the right lung and decreased pleural effusion when compared with the prior study. Dictated by: Simona Johnson M.D. on 09/27/2016 at 8:30 12-lead ECG Normal sinus rhythm at 116 bpm, left axis deviation present, QTC 478, mild widening of QRS complex (104 ms) Additional Diagnostics DateTimeAnalyzed 04:12:00 -_ pH ____7.431 - pCO2 ___38.0__ -mmHg pO2 ___40.3__ -mmHg HCO3- ___24.9__ -mmol/L Assessment & Plan 1. DANY on CKD due to nonoliguric ATN 2. Hypervolemic hypernatremia. 3. Anasarca. 4. Septic shock/Staphylococcus bacteremia. 5. Suspected candidemia. 6. Disseminated zoster. 7. h/o CLL. Plan: Decrease lasix to 40 mg IV q 12hr given some improvement in volume status and persistent hyperNa . continue free water flushes and d5w 60 ml/hr. Double concentrate all IV meds. Meds to be mixed in d5w. GI Prophylaxis: H2 germaine VTE Prophylaxis: Sub-Q Heparin (Unfractionated) VTE Mechanical Devices: Intermittant Pneumatic CD Resuscitation Status: CPR: Attempt Resuscitation Susan Ross MD Oct 02, 2016 11:14
--- NOTE | 2016-10-02 11:28 | DRSVH ---
PROCEDURE: X-RAY CHEST ONE VIEW, PORTABLE ([id number]) INDICATIONS: intubated TECHNIQUE: One view of the chest was acquired. COMPARISON: [facility], CR, XR CHEST 1VW (PORTABLE), 10/01/2016, 5:37. FINDINGS: Surgical changes and devices: Stable positioning of ETT, nasogastric tube, left PICC, right IJ CVL an d right pleural drain. Lungs and pleura: No significant change in edema and persistent mid/basilar air space opacities. Sma ll pleural effusions redemonstrated. Mediastinum: Mediastinal contours appear normal. Heart size is normal. Bones and chest wall: No suspicious bony lesions. Overlying soft tissues appear unremarkable. IMPRESSION: No significant change from prior exam. Dictated by: Francisco Javier Antonio [facility] Interpreted: Merry Robison MD on 10/02/2016 at 11:27 Transcribed by: JIM on 10/02/2016 at 11:28 Approved by: Merry Robison MD, PhD on 10/02/2016 at 16:48
--- NOTE | 2016-10-02 11:35 | NUR ---
NUTRITION FOLLOW-UP ASSESS: 76 YO male admitted to CCU with acute hypoxic respiratory failure, severe sepsis, MSSA pneumonia and disseminated zoster with meningoencephalitis. Pt remains ventilator dependent, unarousable. His renal failure is improving. Pt remains on Jevity 1.5 formula d/t improved potassium and phosphorous levels. Nephrology consulted; patient in need of fluid management and diuresis; patient net + but appears intravascularly depleted, which may be contributing to persistent tachycardia and episodes of hypotension. Plan for today is chest x-ray, EEG, ECHO, palliative care consultation. Pt. may require paralytics, increase in sedation, and re-institution of norepi to manage BP effects in order to better manage ventilation; will plan for EEG to be completed prior to these changes if patient remains stable. PMHX: CLL with poor prognosis, HTN, hypercholesterolemia, GERD, cataracts, COPD. LABS Reviewed. Na 155, Chloride 113, BUN 78, Cr 1.90, Glu 248, Ca 7.7. MEDS: Reviewed. Fentanyl, versed, insulin, lasix. GI: Stool 250 ml (10/01) via FMS. SKIN: Mario 12, Disseminated zoster, non-stageable pressure injury on his left ischium that is 5 cm L x 3 cm W and purple. WT: 126.9 kg BMI: 42.0 kg/m2 ADMIT WT: 116kg (BMI 38.9 kg/m2) IBW: 70kg NUTRITION SUPPORT: Jevity 1.5 @ goal rate 75 ml/hr. EST. NEEDS: BMI (based on Admit Wt) Kcals: 1900-1106 kcal/day (20-22 kcal/kg Admit BW) Pro: 105-120g/day (1.5-1.8g/kg IBW) Fluid: 2400 ml/day (~1 ml/kcal/d) NUTRITION DIAGNOSIS: 1) Inadequate oral intake related to decreased ability to consume sufficient energy as evidenced by current vent / NPO status - IMPROVED WITH ENTERAL FEEDING AT GOAL RATE. 2)Nephrology to manage fluids. NUTRITION INTERVENTION: 1) No additional intervention at this time. Closely monitor BUN, creatinine for potential enteral formula change. MONITOR / EVAL: Enteral feeding tolerance, vent status, wt, labs, GI, POC, nutrition status. Will continue to monitor per high nutrition risk guidelines. Addendum: 10/03/16 at [address] Current flush dose 300 ml H2O every 4 hr, per MD. Enteral feeding at goal providing 2,475 kcal and 105 g protein (100% estimated needs).
[2016-10-02] MEDS: Propofol Inj 1,000,000 MCG in IV Premix 1 EACH IV SCH ×2 (12:32→20:14)
[2016-10-02] MEDS: Dextrose 5% 1,000 ML IV SCH ×2 (12:32→23:24)
[2016-10-02] MEDS: Midazolam 100 mg/100 mL Premix IV PRN (12:38)
--- NOTE | 2016-10-02 13:01 | NUR ---
Palliative care note D/A: Palliative care referral kindly received from Dr. Curiel to assist with goals of care. Note that pt is a 76 yom who is a resident of [facility]. He is noted to have had hospitalizations at [facility] and [facility]. Pt has CLL and is being seen by Dr. Benavides while in acute care and Dr. Benavides notes that he obtains oncology services at [facility]. Pt dtr Nayeli Villegas can be reached at [phone]. His friend Perlita Art can be reached at [phone]. Dtr Nayeli appears to be primary contact. Pt to be seen by Dr. Love. P: Palliative care to follow. Zuleima MICHAUD, CCM
--- NOTE | 2016-10-02 15:00 | PCM.PNMED ---
Subjective Date of Service Oct 02, 2016 Amy Villegas is a 76-year-old male with CLL currently on chemotherapy with past medical history significant for likely COPD, recent visit to [facility] in [place], and ongoing hypertension directly transferred to [facility] from [facility] due to acute septic shock secondary to presumed aspiration pneumonia. Hospital day 12. Overnight: Febrile with a Tmax of 39.3 yesterday evening. Afebrile overnight. Continues on fentanyl and versed gtt for sedation. Today: Patient remains intubated and sedated. Patient with no response to physical stimulation. Fentanyl and versed gtt for sedation. Tube feeds at goal and free water flushes increased with minimal residuals. ROS is not obtainable. Exam Vital Signs Vital Sign - Last Date Time Temp Pulse Resp B/P Pulse Ox O2 Delivery O2 Flow Rate FiO2 10/02/16 06:07 99 150/66 95 60 10/02/16 04:00 37.2 29 Mechanical Ventilator Intake and Output 10/01/16 10/01/16 10/02/16 Cumulative From/Thru 15:00 23:00 07:00 09/21/16 19:30 - 10/02/16 06:28 Intake Total 2663 ml 3823 ml 54700 ml Output Total 3600 ml 3470 ml 78067 ml Balance -937 ml 353 ml 62524 ml Intake Oral 60 ml IV Total 1287 ml 1561 ml 08485 ml Tube Feeding 852 ml 1010 ml 6551 ml Tube Irrigant 524 ml 1252 ml 4227 ml Output Urine Total 3500 ml 3300 ml 13885 ml Stool Total 100 ml 150 ml 1200 ml Gastric Drainage Total 1565 ml Chest Tube Drainage Total 0 ml 20 ml 355 ml # Bowel Movements 7 Exam Gen: Intubated and sedated, anasarca, no restraints. HEENT: PERRLA, corneal edema, large neck, R IJ in place. Cardio: Regular rate and rhythm, no murmurs noted. Respiratory: Faint crackles in bilateral bases. Mechanically ventilated. Right chest tube in place. Abdomen: Soft, distended, normal bowel sounds. : Prado and FMS in place. Scrotal edema. Skin: Shingles on the left shoulder anteriorly and superiorly currently crusted. Extremities: Lower extremity edema and anasarca. Neurologic: Patient sedated. Psych: Patient sedated. Lab and Diagnostics Result Diagram: 10/02/16 0400 10/02/16 0400 Microbiology CSF positive for VZV MRSA negative Buttock culture positive for staphylococcus aureus Blood cultures 2 out of 4 positive for gram positive cocci Sputum positive for staphylococcus aureus Clostridium difficile negative X-Rays, CTs and MRIs X-RAY CHEST ONE VIEW, PORTABLE IMPRESSION: Right thoracostomy tube. No pneumothorax or subcutaneous emphysema. Dictated by: Simona Johnson M.D. on 09/25/2016 at 18:52 Approved by: Simona Johnson M.D. on 09/25/2016 at 18:52 X-RAY CHEST ONE VIEW, PORTABLE IMPRESSION: 1. Support lines and tubes as above. 2. Bilateral pleural effusions, right greater than left. 3. Bilateral lower lung consolidation, increasing involving the right lung base and similar involving the left. Dictated by: Francisco Javier BASSETT Interpreted: Merry Robison MD on 09/23/2016 at 9:45 Transcribed by: JIM on 09/23/2016 at 9:45 Approved by: Merry Robison MD, PhD on 09/23/2016 at 16:56 X-RAY CHEST ONE VIEW, PORTABLE IMPRESSION: 1. Support lines and tubes as above. 2. Abnormal opacity within the right lung and the lung bases consistent with pulmonary edema and/or diffuse bilateral inflammatory process. Recommend clinical correlation and followup. Dictated by: Francisco Javier BASSETT Interpreted: Jammie Drake MD on 09/22/2016 at 9: 13 X-RAY CHEST ONE VIEW, PORTABLE IMPRESSION: Improved aeration of the right lung and decreased pleural effusion when compared with the prior study. Dictated by: Simona Johnson M.D. on 09/27/2016 at 8:30 12-lead ECG Normal sinus rhythm at 116 bpm, left axis deviation present, QTC 478, mild widening of QRS complex (104 ms) Additional Diagnostics DateTimeAnalyzed 04:30:00 -_ pH ____7.467 - 7.350 7.450 pCO2 ___39.9__ -mmHg 35.0 45.0 pO2 ___66.8__ -mmHg 69.0 116 HCO3- ___28.5__ -mmol/L 22.0 26.0 Assessment & Plan Magdaleno Villegas is a 76-year-old male with CLL currently on chemotherapy with past medical history significant for likely COPD, recent visit to [facility] in [place], and ongoing hypertension directly transferred to [facility] from [facility] due to acute septic shock secondary to presumed aspiration pneumonia. Hospital day 12. 1. Severe sepsis with shock, present on admission, improving. -Etiology multifactorial including disseminated zoster, staph bacteremia, and decubitus ulcer on left ischial tuberosity. -At [facility] patient became hypotensive and unresponsive to fluids and was started on three pressors and transferred to [facility]. -On admission here patient tachycardic, pro-calcitonin 21.82, lactic acid of 4.8 (lactic acid at [facility] was 1.4). -Norepinephrine titrated off on 09/28. -Blood cultures and lumbar puncture as below. -Dr. Ritter consulted, appreciate the expertise. 2. Staphylococcus bacteremia, present on admission active. - Blood cultures 2 out of 4 positive. - Repeat blood cultures drawn with no growth on 09/27. - Nafcillin continuos infusion from 09/24-09/30. - Meropenem started 09/30. - Dr. Ritter consulted, appreciate time and expertise. 3. Disseminated zoster, present on admission, active. -Evidence of multiple lesions in multiple dermatomes. Currently crusted. -Patient has encephalitis, hepatitis, and pneumonitis secondary to disseminated zoster -Continue on IV acyclovir, dose adjusted for renal failure by Dr. Ritter -Lumbar puncture with high opening pressure. CSF clear, WBC 19, RBC 2, Mononuclear WBCs 100, Polynuclear WBCs 0, Glucose 75, Protein 58. -Continues to be unresponsive to stimuli. EEG planned for today. -Dr. Ritter consulted, appreciate the expertise. 4. Acute hypoxic respiratory failure, present on admission, active. -Patient presented with severe hypoxia and was requiring 100% FiO2, 12 of PEEP, respiratory rate of 35, and tidal volumes were initially 600 mL but was quickly taken down to 470 mL. -Chest tube placed 09/25 due to hypoxemia secondary to large pleural effusion. -Patient also has suspected underlying COPD which will complicate his pulmonary course. -Ventilator management per ICU team, appreciate the expertise 5. Lactic acidosis, present on admission, active. -Etiology is likely infectious but patient's CLL likely a contributing factor. -Lactic acid 4.8 on admission. -Will continue to monitor. 6. Acute kidney injury, present on admission, improving. -Patient presented to [facility] with a creatinine of 0.8, however over the subsequent days prior to his transfer here he was having a slow increase in his creatinine up to 1.6 and after pressure support his creatinine on arrival here was 2.21. -This acute kidney injury is likely due to hypoperfusion/prerenal secondary to dehydration and excessive pressure support with 2 peripheral vasoconstrictors and Levophed. Likely has a degree of ATN. -Lasix decreased to 40mg IV Q12H. -Continues to have good urine output. -Continue to monitor I and O and daily BMP -No indication for dialysis at this time -Nephrology consulted. Appreciate time and expertise. 7. Hypernatremia, not present on admission, active. -Lasix as above. -Free water flushes increased to 300 ml Q4H. -D5W 60 ml/hr. -Meds to be mixed in d5w. -Continue to monitor with BMP. 7. Chronic lymphocytic leukemia, present on admission, undergoing oral chemotherapy prior to hospitalization. -No records available thus far but patient appears to be on current chemotherapy per family. -Neupogen given per Dr. Benavides's recommendations. -Heme/Onc consulted. Appreciate time and expertise. 8. Elevated liver enzymes, present on admission, improving. -Etiology likely multifactorial including disseminated zoster and shock liver. -Liver enzymes trending down. 9. Acute encephalopathy, present on admission, active. -Patient has a recent history of acute confusion with hospital admission and resolution of confusion during those stays. -Etiology likely secondary to sepsis, infection, and VZV encephalitis. -Sedation titrated down but continues on fentanyl and versed. -CT head showed no acute intracranial process. -Lumbar puncture with high opening pressure. CSF clear, WBC 19, RBC 2, Mononuclear WBCs 100, Polynuclear WBCs 0, Glucose 75, Protein 58. 10. Decubitus ulcer, present on admission, active. -Wound culture grew bacteroides fragillis. -Metronidazole 1000 mg Q12H. -Wound care consulted. Disposition: Patient remains critically ill and in the CCU. GI Prophylaxis: H2 germaine VTE Prophylaxis: Sub-Q Heparin (Unfractionated) VTE Mechanical Devices: Intermittant Pneumatic CD Resuscitation Status: CPR: Attempt Resuscitation Attending Statement The patient was seen and examined together with Dr. Lama on 10/02/2016 and I agree with the history, exam and plan as outlined in the note above. . MATTHEW LAMA DO Oct 02, 2016 06:55 Coleman Velásquez MD Oct 03, 2016 14:51
[2016-10-02] MEDS: Dexmedetomidine 400 mCg/100 mL 400 MCG in IV Premix 1 EACH IV SCH (15:33)
--- NOTE | 2016-10-02 18:47 | NUR ---
EEG/changes in sedation medications/BP Respiratory rate this morning was 32-35 breath per min and 10-12 breath above ventilator set rate of 24. Oxygen saturation 92-94% on PRVC 60%, peep of 12 and TV 480. Patient was receiving fentanyl at 100mcg/h and versed at 4mg/h as pain/sedation medications IV. Consulted with MD during morning rounds- Propofol was suggested but to be used with carefully because previously patient responded by dropping his BP below acceptable level. Propofol drip was initiated this afternoon after EEG of the brain was completed. Patient was transitioned from versed to propofol and Precedex drip was added. Respiratory rate gradually decreased to 24-26BPM. To obtain this result propofol drip was increased to 25mcg/kg/min and Precedex to 0.3mcg/kg/h, fentanyl remained at 100mcg/h. Patient's BP decreased and MAP dropped to 55-60 ranges- consulted with MD Levophed drip was started to support BP- BP improved- please se CCU flow sheet for vitals and details. Planned MRI of the brain for this evening was canceled- unable to complete the test with patient having IV drips requiring metal pumps- consulted with MD- MD will consider completing MRI with anesthesiologist present to safely administer drips if unable to wean off BP meds by Wednesday- continue assessment.
[2016-10-02] MEDS: Norepinephrine 8,000 mCg/250 mL D5W Premix IV SCH (19:15)
[2016-10-03] VITALS (12 sets, daily range): BP systolic 110–154; BP diastolic 44–63; PULSE 67–87; RESP 24–28; O2SAT 96–99
[2016-10-03] MEDS: Dexmedetomidine 400 mCg/100 mL 400 MCG in IV Premix 1 EACH IV SCH ×3 (00:15→20:46)
[2016-10-03] MEDS: Chlorhexidine 0.12% 15 mL Oral Solution MT SCH ×7 (00:16→23:51)
[2016-10-03] MEDS: Propofol Inj 1,000,000 MCG in IV Premix 1 EACH IV SCH ×3 (02:10→12:08)
[2016-10-03] MEDS: Labetalol 5 mg/mL 20 mL Inj IVPUSH SCH ×2 (02:36→08:30)
[2016-10-03] MEDS: Sodium Chloride LOK Flush 10 mL Syringe IVFLUSH PRN ×2 (02:36→02:37)
[2016-10-03] MEDS: Insulin Human REGular 300 Unit/3 mL Inj SUBQ SCH ×4 (02:47→20:52)
[2016-10-03] MEDS: fentaNYL 2,500 mCg/250 mL 2,500 MCG in IV Premix 1 EACH IV PRN ×2 (02:50→22:58)
[2016-10-03] MEDS: Norepinephrine 8,000 mCg/250 mL D5W Premix IV SCH ×2 (02:57→13:35)
[2016-10-03 02:58] LABS: Mean Corpuscular Hemoglobin 28.3 pg (27.0-35.0); Mean Corpuscular Volume 88.3 fL (81-100); Platelet Count 125 bil/L (150-400)
[2016-10-03 03:53] LABS: Magnesium 1.8 mg/dL (1.6-2.6); Phosphorus 4.3 mg/dL (2.5-4.9)
[2016-10-03 05:01] LABS: BASOPHILS % (AUTO) 2 % (0-3); EOSINOPHILS % (AUTO) 3 % (0-5); MONOCYTES % (AUTO) 6 % (4-12); NEUTROPHILS % (AUTO) 58 % (40-74)
--- NOTE | 2016-10-03 05:12 | ABG ---
DateTimeAnalyzed 05:08:00 -_ pH ____7.415 - 7.350 7.450 pCO2 ___46.1__ -mmHg 35.0 45.0 pO2 ___44.8__ -mmHg 69.0 116 HCO3- ___29.0__ -mmol/L 22.0 26.0 ABE ____4.5__ -mmol/L -2.0 2.0 tHb ____7.4__ -g/dL O2Hb ___80.2__ -% COHb ____1.3__ -% MetHb ____0.9__ -% sO2 ___82.0__ -% 25.0 FIO2 ___60.0__ -% PEEP ___12.0__ -cmH2O Vt __480.0__ -L Drawn By af - Date/Time Notified____ 05:12:00 -_ Spontaneous_RR ___27.0__ -b/min Oxygen Device 1 VENTILATOR - Notified By af - Notified Whom ____nurse - B 772 -mmHg tO2 ____8.4__ -Vol% Jeevan test N/A -
--- NOTE | 2016-10-03 05:33 | NUR ---
P) Cardiac/fever Pt. continues to require levophed for blood pressure support, cardiac rhythm is sinus tonight instead of afib. Febrile tonight again, T-max 38.7, Pt. reacts to pain but not tracking or following any commands, of coarse he is on increased sedation to allow vent to oxygenate him. I) Meds per 's orders, turning q2h and on cont. rotation, elevating heels. E) Resting quietly with eyes closed.
[2016-10-03 07:34] LABS: APPEARANCE,URINE CLEAR (CLEAR,HAZY); COLOR,URINE YELLOW (YELLOW)
[2016-10-03 07:35] LABS: OCCULT BLOOD,URINE MODERATE (NEGATIVE); UROBILINOGEN,URINE NORMAL (NORMAL); YEAST,URINE FEW (NONE SEEN)
--- NOTE | 2016-10-03 08:12 | DRSVH ---
PROCEDURE: X-RAY CHEST ONE VIEW, PORTABLE ([id number]) INDICATIONS: intubated TECHNIQUE: One view of the chest was acquired. COMPARISON: [facility], CR, XR CHEST 1VW (PORTABLE), 10/01/2016, 5:37. [facility], CR, XR CHEST 1VW (PORTABLE), 10/02/2016, 3:59. FINDINGS: Surgical changes and devices: There is a right thoracostomy tube. The tracheal tube, nasogastric tube and left PICC are in stable positions. Lungs and pleura: Bilateral interstitial infiltrates consistent with pulmonary edema or bilateral pn eumonia. Small bilateral pleural effusions. No pneumothorax. Mediastinum: Mediastinal contours appear normal. Heart size is normal. Bones and chest wall: No suspicious bony lesions. Overlying soft tissues appear unremarkable. IMPRESSION: Stable chest. Dictated by: Mike Monteiro M.D. on 10/03/2016 at 8:10 Approved by: Mike Monteiro M.D. on 10/03/2016 at 8:11
[2016-10-03] MEDS: LacriLube S.O.P. 3.5 Gm Ophthalmic Ointment BOTH_EYES SCH ×2 (08:31→19:47)
[2016-10-03] MEDS: Senna Leaf Extract 528 mg/15 mL Syrup PO SCH ×2 (08:31→20:48)
[2016-10-03] MEDS: Furosemide 10 mg/mL 10 mL Inj IVPUSH SCH (08:37)
[2016-10-03] MEDS: Famotidine Inj 20 MG in IV Premix 1 EACH IV SCH (08:38)
[2016-10-03] MEDS: DEXTROSE 5% IV SCH ×2 (08:39→20:48)
[2016-10-03] MEDS: ACYCLOVIR IV SCH ×2 (08:39→20:48)
[2016-10-03] MEDS: Heparin 5,000 Unit/mL Inj SUBQ SCH ×2 (08:40→20:49)
[2016-10-03] MEDS: Micafungin Inj 150 MG in 0.9% Sodium Chloride 100 ML IV SCH (08:40)
[2016-10-03] MEDS: Meropenem Inj 2,000 MG in 0.9% Sodium Chloride 100 ML IV SCH ×2 (08:52→20:49)
--- NOTE | 2016-10-03 11:13 | ABG ---
DateTimeAnalyzed 11:08:00 -_ pH ____7.413 - 7.350 7.450 pCO2 ___45.6__ -mmHg 35.0 45.0 pO2 ___80.7__ -mmHg 69.0 116 HCO3- ___28.5__ -mmol/L 22.0 26.0 ABE ____4.1__ -mmol/L -2.0 2.0 tHb ____7.2__ -g/dL O2Hb ___94.7__ -% COHb ____1.3__ -% MetHb ____1.0__ -% sO2 ___96.9__ -% 25.0 FIO2 ___60.0__ -% PEEP ___12.0__ -cmH2O Set_RR ___24.0__ -b/min Vt __480.0__ -L Drawn By NB - Date/Time Notified____ 11:13:00 -_ Spontaneous_RR ___24.0__ -b/min Oxygen Device 1 VENTILATOR - Notified By NB - Notified Whom _Ania, RN - B 772 -mmHg tO2 ____9.7__ -Vol% Jeevan test _Positive -
--- NOTE | 2016-10-03 11:36 | PCM.PNMED ---
Subjective Date of Service Oct 03, 2016 Subjective Levophed was restarted to maintain his BP. Febrile, Tmax 39.3C Exam Vital Signs Vital Sign - Last Date Time Temp Pulse Resp B/P Pulse Ox O2 Delivery O2 Flow Rate FiO2 10/03/16 08:30 78 154/63 97 60 10/03/16 07:55 37.4 26 Mechanical Ventilator Intake and Output 10/02/16 10/02/16 10/03/16 Cumulative From/Thru 15:00 23:00 07:00 09/21/16 19:30 - 10/03/16 06:35 Intake Total 3408 ml 4286 ml 84340 ml Output Total 2805 ml 1430 ml 07920 ml Balance 603 ml 2856 ml 22296 ml Intake Oral 60 ml IV Total 1160 ml 1824 ml 89845 ml Tube Feeding 968 ml 1060 ml 8579 ml Tube Irrigant 1280 ml 1402 ml 6909 ml Output Urine Total 2800 ml 1400 ml 13553 ml Stool Total 10 ml 1210 ml Gastric Drainage Total 1565 ml Chest Tube Drainage Total 5 ml 20 ml 380 ml # Bowel Movements 7 Exam GA: intubated, sedated. HEENT: atraumatic, chemosis, injected conjunctiva, ETT/OG in place. Heart: RRR, normal S1/S2, no murmur. Lungs: equal BS, scattered rhonchi. Abd: soft, moderate distension, decreased BS. Ext: 2+ edema, sacral swelling. : severe scrotal swelling, hearn cath in place with yellowish urine. Skin: right IJ in place, crusted papules noted on left shoulder. Lab and Diagnostics Result Diagram: 10/03/16 0230 10/03/16 0230 Microbiology CSF positive for VZV MRSA negative Buttock culture positive for staphylococcus aureus Blood cultures 2 out of 4 positive for gram positive cocci Sputum positive for staphylococcus aureus Clostridium difficile negative X-Rays, CTs and MRIs X-RAY CHEST ONE VIEW, PORTABLE IMPRESSION: Right thoracostomy tube. No pneumothorax or subcutaneous emphysema. Dictated by: Simona Johnson M.D. on 09/25/2016 at 18:52 Approved by: Simona Johnson M.D. on 09/25/2016 at 18:52 X-RAY CHEST ONE VIEW, PORTABLE IMPRESSION: 1. Support lines and tubes as above. 2. Bilateral pleural effusions, right greater than left. 3. Bilateral lower lung consolidation, increasing involving the right lung base and similar involving the left. Dictated by: Francisco Javier BASSETT Interpreted: Merry Robison MD on 09/23/2016 at 9:45 Transcribed by: JIM on 09/23/2016 at 9:45 Approved by: Merry Robison MD, PhD on 09/23/2016 at 16:56 X-RAY CHEST ONE VIEW, PORTABLE IMPRESSION: 1. Support lines and tubes as above. 2. Abnormal opacity within the right lung and the lung bases consistent with pulmonary edema and/or diffuse bilateral inflammatory process. Recommend clinical correlation and followup. Dictated by: Francisco Javier BASSETT Interpreted: Jammie Drake MD on 09/22/2016 at 9: 13 X-RAY CHEST ONE VIEW, PORTABLE IMPRESSION: Improved aeration of the right lung and decreased pleural effusion when compared with the prior study. Dictated by: Simona Johnson M.D. on 09/27/2016 at 8:30 12-lead ECG Normal sinus rhythm at 116 bpm, left axis deviation present, QTC 478, mild widening of QRS complex (104 ms) Additional Diagnostics DateTimeAnalyzed 04:30:00 -_ pH ____7.467 - 7.350 7.450 pCO2 ___39.9__ -mmHg 35.0 45.0 pO2 ___66.8__ -mmHg 69.0 116 HCO3- ___28.5__ -mmol/L 22.0 26.0 Assessment & Plan 1. DANY on CKD due to nonoliguric ATN. 2. Hypervolemic hypernatremia. 3. Anasarca. - likely with low effective circulating volume. 4. Septic shock/Staphylococcus bacteremia. 5. Suspected candidemia. 6. Disseminated zoster. 7. h/o CLL. Plan: Pt with low effective circulating volume and unstable hemodynamics, will hold IV lasix for now. resume IV 25% albumin q 12 hr x 2 doses. continue d5w and free water flushes. continue levophed to support BP, keep MAP > 65 mmHg. GI Prophylaxis: H2 germaine VTE Prophylaxis: Sub-Q Heparin (Unfractionated) VTE Mechanical Devices: Intermittant Pneumatic CD Resuscitation Status: CPR: Attempt Resuscitation Susan Ross MD Oct 03, 2016 11:36
[2016-10-03] MEDS: Albumin 25% 25 GM in IV Premix 1 EACH IV SCH ×2 (12:09→23:51)
--- NOTE | 2016-10-03 12:34 | DRSVH ---
PROCEDURE: X-RAY CHEST ONE VIEW ([id number]) INDICATIONS: Catheter tip placement TECHNIQUE: One view of the chest was acquired. COMPARISON: [facility], CR, XR CHEST 1VW (PORTABLE), 10/03/2016, 4:05. FINDINGS: Surgical changes and devices: Right IJ central line seen with the tip projecting to the area of the s uperior vena cava. The right thoracostomy tube, and the clinical tube, nasogastric tube and PICC line are stable in position. Lungs and pleura: Bilateral airspace infiltrates, increased in the right lower lung zone. Left basi lar consolidation is unchanged. No pleural effusions or pneumothorax. Mediastinum: Mediastinal contours appear normal. Heart size is normal. Bones and chest wall: No suspicious bony lesions. Overlying soft tissues appear unremarkable. IMPRESSION: 1. Right IJ central line tip is in the area of superior vena cava. 2. Increased right basilar infiltrate consistent with pneumonia. Dictated by: Mike Monteiro M.D. on 10/03/2016 at 12:32 Approved by: Mike Monteiro M.D. on 10/03/2016 at 12:33
--- NOTE | 2016-10-03 13:20 | PCM.PNMED ---
Subjective Date of Service Oct 03, 2016 Amy Villegas is a 76-year-old male with CLL currently on chemotherapy with past medical history significant for likely COPD, recent visit to [facility] in [place], and ongoing hypertension directly transferred to [facility] from [facility] due to acute septic shock secondary to presumed aspiration pneumonia. Hospital day 13. Overnight: Febrile with a Tmax of 38.7. Norepinephrine restarted to maintain MAPs > 60. Fentanyl and versed gtt for sedation. Today: Patient remains intubated and sedated. Patient with no response to physical stimulation. Norepinephrine at 0.1 to maintain MAPs > 60. Fentanyl and versed gtt for sedation. Tube feeds at goal and free water flushes increased with minimal residuals. ROS is not obtainable. Exam Vital Signs Vital Sign - Last Date Time Temp Pulse Resp B/P Pulse Ox O2 Delivery O2 Flow Rate FiO2 10/03/16 04:53 78 154/63 97 60 10/03/16 04:00 37.9 24 Mechanical Ventilator Intake and Output 10/02/16 10/02/16 10/03/16 Cumulative From/Thru 15:00 23:00 07:00 09/21/16 19:30 - 10/03/16 06:35 Intake Total 3408 ml 4286 ml 86359 ml Output Total 2805 ml 1430 ml 92398 ml Balance 603 ml 2856 ml 76363 ml Intake Oral 60 ml IV Total 1160 ml 1824 ml 56933 ml Tube Feeding 968 ml 1060 ml 8579 ml Tube Irrigant 1280 ml 1402 ml 6909 ml Output Urine Total 2800 ml 1400 ml 23536 ml Stool Total 10 ml 1210 ml Gastric Drainage Total 1565 ml Chest Tube Drainage Total 5 ml 20 ml 380 ml # Bowel Movements 7 Exam Gen: Intubated and sedated, anasarca HEENT: PERRLA, corneal edema, large neck, R IJ in place. Cardio: Regular rate and rhythm, no murmurs noted. Respiratory: Faint crackles in bilateral bases. Mechanically ventilated. Right chest tube in place. Abdomen: Soft, distended, normal bowel sounds. : [place] and FMS in place. Scrotal edema. Skin: Shingles on the left shoulder anteriorly and superiorly currently crusted. Extremities: Lower extremity edema and anasarca. Neurologic: Patient sedated. Psych: Patient sedated. Lab and Diagnostics Result Diagram: 10/03/16 0230 10/03/16 0230 Microbiology CSF positive for VZV MRSA negative Buttock culture positive for staphylococcus aureus Blood cultures 2 out of 4 positive for gram positive cocci Sputum positive for staphylococcus aureus Clostridium difficile negative X-Rays, CTs and MRIs X-RAY CHEST ONE VIEW, PORTABLE IMPRESSION: Right thoracostomy tube. No pneumothorax or subcutaneous emphysema. Dictated by: Simona Johnson M.D. on 09/25/2016 at 18:52 Approved by: Simona Johnson M.D. on 09/25/2016 at 18:52 X-RAY CHEST ONE VIEW, PORTABLE IMPRESSION: 1. Support lines and tubes as above. 2. Bilateral pleural effusions, right greater than left. 3. Bilateral lower lung consolidation, increasing involving the right lung base and similar involving the left. Dictated by: Francisco Javier BASSETT Interpreted: Merry Robison MD on 09/23/2016 at 9:45 Transcribed by: JIM on 09/23/2016 at 9:45 Approved by: Merry Robison MD, PhD on 09/23/2016 at 16:56 X-RAY CHEST ONE VIEW, PORTABLE IMPRESSION: 1. Support lines and tubes as above. 2. Abnormal opacity within the right lung and the lung bases consistent with pulmonary edema and/or diffuse bilateral inflammatory process. Recommend clinical correlation and followup. Dictated by: Francisco Javier BASSETT Interpreted: Jammie Drake MD on 09/22/2016 at 9: 13 X-RAY CHEST ONE VIEW, PORTABLE IMPRESSION: Improved aeration of the right lung and decreased pleural effusion when compared with the prior study. Dictated by: Simona Jhonson M.D. on 09/27/2016 at 8:30 12-lead ECG Normal sinus rhythm at 116 bpm, left axis deviation present, QTC 478, mild widening of QRS complex (104 ms) Additional Diagnostics DateTimeAnalyzed 05:08:00 -_ pH ____7.415 - 7.350 7.450 pCO2 ___46.1__ -mmHg 35.0 45.0 pO2 ___44.8__ -mmHg 69.0 116 HCO3- ___29.0__ -mmol/L 22.0 26.0 ABE ____4.5__ -mmol/L -2.0 2.0 Assessment & Plan Magdaleno Villegas is a 76-year-old male with CLL currently on chemotherapy with past medical history significant for likely COPD, recent visit to [facility] in [place], and ongoing hypertension directly transferred to [facility] from [facility] due to acute septic shock secondary to presumed aspiration pneumonia. Hospital day 13. 1. Severe sepsis with shock, present on admission. Active. - Etiology multifactorial including disseminated zoster, staph bacteremia, and decubitus ulcer on left ischial tuberosity. - At [facility] patient became hypotensive and unresponsive to fluids and was started on three pressors and transferred to [facility]. - On admission here patient tachycardic, pro-calcitonin 21.82, lactic acid of 4.8 (lactic acid at [facility] was 1.4). - Norepinephrine titrated off on 09/28. Restarted 10/02. Currently at 0.1. - IV 25% albumin q 12 hr x 2 doses started 10/03. - Blood cultures and lumbar puncture as below. - Dr. Ritter consulted, appreciate the expertise. 2. Staphylococcus bacteremia, present on admission active. - Blood cultures 2 out of 4 positive. - Repeat blood cultures drawn with no growth on 09/27. - Nafcillin continuos infusion from 09/24-09/30. - Meropenem started 09/30. - Dr. Ritter consulted, appreciate time and expertise. 3. Disseminated zoster, present on admission, active. - Encephalitis, hepatitis, and pneumonitis secondary to disseminated zoster - Evidence of multiple lesions in multiple dermatomes. Currently crusted. - Continue on IV acyclovir, dose adjusted for renal failure by Dr. Ritter - Lumbar puncture with high opening pressure. CSF clear, WBC 19, RBC 2, Mononuclear WBCs 100, Polynuclear WBCs 0, Glucose 75, Protein 58. - Continues to be unresponsive to stimuli. - EEG completed 10/02. - Unable to proceed with MRI on 10/02 as anesthesiologist will need to be present. Plan to complete on Wednesday, 10/05. - Dr. Ritter consulted, appreciate the expertise. 4. Acute hypoxic respiratory failure, present on admission, active. - Patient presented with severe hypoxia and was requiring 100% FiO2, 12 of PEEP , respiratory rate of 35, and tidal volumes were initially 600 mL but was quickly taken down to 470 mL. - Chest tube placed 09/25 due to hypoxemia secondary to large pleural effusion. - Patient also has suspected underlying COPD which will complicate his pulmonary course. - Ventilator management per ICU team, appreciate the expertise 5. Lactic acidosis, present on admission, active. - Etiology is likely infectious but patient's CLL likely a contributing factor. - Lactic acid 4.8 on admission. - Will continue to monitor. 6. Acute kidney injury, present on admission, improving. - Patient presented to [facility] with a creatinine of 0.8, however over the subsequent days prior to his transfer here he was having a slow increase in his creatinine up to 1.6 and after pressure support his creatinine on arrival here was 2.21. - This acute kidney injury is likely due to hypoperfusion/prerenal secondary to dehydration and excessive pressure support with 2 peripheral vasoconstrictors and Levophed. Likely has a degree of ATN. - Lasix 40mg IV Q12H held due to hemodynamic instability. - Continues to have good urine output. - Continue to monitor I and O and daily BMP - No indication for dialysis at this time - Nephrology consulted. Appreciate time and expertise. 7. Hypernatremia, not present on admission, active. - Lasix as above. - Free water flushes increased to 300 ml Q4H. - D5W 60 ml/hr. - Meds to be mixed in d5w. - Continue to monitor with BMP. 7. Chronic lymphocytic leukemia, present on admission, undergoing oral chemotherapy prior to hospitalization. - No records available thus far but patient appears to be on current chemotherapy per family. - Neupogen given per Dr. Benavides's recommendations. - Heme/Onc consulted. Appreciate time and expertise. 8. Elevated liver enzymes, present on admission, improving. - Etiology likely multifactorial including disseminated zoster and shock liver. - Liver enzymes trending down. 9. Acute encephalopathy, present on admission, active. - Patient has a recent history of acute confusion with hospital admission and resolution of confusion during those stays. 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 - Sedation titrated down but continues on fentanyl and versed. - CT head showed no acute intracranial process. - Lumbar puncture with high opening pressure. CSF clear, WBC 19, RBC 2, Mononuclear WBCs 100, Polynuclear WBCs 0, Glucose 75, Protein 58. 10. Decubitus ulcer, present on admission, active. - Wound culture grew bacteroides fragillis. - Metronidazole 1000 mg Q12H. - Wound care consulted. 11. 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 - Micafungin 150 mg Q24H. Disposition: Patient remains critically ill and in the CCU. Patient requiring pressors at this time and not tolerating decreased sedation. Plan to proceed with MRI on 10/05 to evaluate brain more thoroughly. GI Prophylaxis: H2 germaine VTE Prophylaxis: Sub-Q Heparin (Unfractionated) VTE Mechanical Devices: Intermittant Pneumatic CD Resuscitation Status: CPR: Attempt Resuscitation Attending Statement The patient was seen and examined together with Dr. Lama on 10/03/2016 and I agree with the history, exam and plan as outlined in the note above. . MATTHEW LAMA DO Oct 03, 2016 07:04 Coleman Velásquez MD Oct 03, 2016 14:52
[2016-10-03 14:41] LABS: Mean Corpuscular Hemoglobin 28.5 pg (27.0-35.0); Mean Corpuscular Volume 91.2 fL (81-100)
--- NOTE | 2016-10-03 17:08 | NUR ---
Social Work: Continued Discharge Planning D: Pt discussed with MD at am rounds. Pt remains in the CCU and critically ill. Pt remains vented and sedated; not responding to stimuli at this time. MD team has ordered an MRI of pt's brain on 10/05 to evaluate further. Pending results pt may require comfort care versus LTAC transfer. A: Pt who previously lived at [facility] and was I P: Evolving; JEWEL GRINDER to continue to follow. Magalis Garza MSW
--- NOTE | 2016-10-03 18:28 | NUR ---
Note Patient continued on Levophed for BP support. Labetalol IV dose was held this morning- consulted with MD- discontinued labetalol. Patient remained sedated on propofol, Precedex and fentanyl drips. Patient continued to over-breath ventilator rate of 24 by 2-4breath per min. patient was using "belly breathing " and had elevated peak pressures- sedation drips were increased: propofol to 30mcg/kg/min from 25mcg/kg/min and fentanyl from 100mcg/h to 130 mcg/h- after about 30min patient was able to relax and appeared to be breathing synchronized with the ventilator at 24-25 breath per min- continue assessment.
[2016-10-03] MEDS: Insulin GLARgine 100 Unit/mL Syringe SUBQ SCH (20:52)
[2016-10-04] VITALS (16 sets, daily range): BP systolic 118–166; BP diastolic 42–60; PULSE 70–91; RESP 24–30; O2SAT 96–99
[2016-10-04] MEDS: Norepinephrine 8,000 mCg/250 mL D5W Premix IV SCH ×3 (00:40→23:47)
[2016-10-04] MEDS: Propofol Inj 1,000,000 MCG in IV Premix 1 EACH IV SCH ×8 (01:25→23:46)
[2016-10-04] MEDS: Insulin Human REGular 300 Unit/3 mL Inj SUBQ SCH ×4 (02:33→21:08)
--- NOTE | 2016-10-04 03:31 | NUR ---
P) Fever/cardiac/CT Pt. febrile again tonight, T-max 38.3, requiring increasing sedation to prevent double stacking of breaths on vent and increasing Norepinephrine to maintain BP. Opens eyes spontaneously but does not track or follow commands. Cardiac rhythm sinus 80-105bpm, Chest tube putting out minimal sanguinous fluid. Blood sugars continue greater than 200 with results of 323 and 212mg/dl. I) Meds per Dr.'s orders, passive cooling and bathing, turning q2h and cont. rotation, floating heels. E) Resting quietly with eyes closed, currently propofol at 35mcg/kg/min and norepi at 0.15mcg/kg/min.
[2016-10-04] MEDS: Chlorhexidine 0.12% 15 mL Oral Solution MT SCH ×6 (04:21→23:47)
[2016-10-04] MEDS: Dextrose 5% 1,000 ML IV SCH ×3 (04:21→20:56)
[2016-10-04 04:27] LABS: Mean Corpuscular Hemoglobin 28.4 pg (27.0-35.0); Mean Corpuscular Volume 91.7 fL (81-100); Platelet Count 141 bil/L (150-400)
[2016-10-04 04:44] LABS: BASOPHILS % (AUTO) 0 % (0-3); EOSINOPHILS % (AUTO) 0 % (0-5); MONOCYTES % (AUTO) 6 % (4-12); NEUTROPHILS % (AUTO) 61 % (40-74)
[2016-10-04 04:57] LABS: Magnesium 1.8 mg/dL (1.6-2.6); Phosphorus 4.8 mg/dL (2.5-4.9)
--- NOTE | 2016-10-04 07:43 | DRSVH ---
PROCEDURE: X-RAY CHEST ONE VIEW, PORTABLE ([id number]) INDICATIONS: MSSA pneumonia TECHNIQUE: One view of the chest was acquired. COMPARISON: None. FINDINGS: Surgical changes and devices: None. Tubes and catheters are in stable and expected positions. Lungs and pleura: No pleural effusions or pneumothorax. No change in multifocal bilateral pulmonary opacities, worst at the bilateral mid and lower lungs. Mediastinum: Mediastinal contours appear normal. Heart size is normal. Bones and chest wall: No suspicious bony lesions. Overlying soft tissues appear unremarkable. IMPRESSION: No change in multifocal pneumonia. Dictated by: Adalberto Barker M.D. on 10/04/2016 at 7:40 Approved by: Adalberto Barker M.D. on 10/04/2016 at 7:41
[2016-10-04] MEDS: Dexmedetomidine 400 mCg/100 mL 400 MCG in IV Premix 1 EACH IV SCH ×3 (08:03→23:46)
[2016-10-04] MEDS ORDERED: diphenhydrAMINE 25 mg Capsule PO ONE (08:10)
[2016-10-04] MEDS: Famotidine Inj 20 MG in IV Premix 1 EACH IV SCH (08:48)
[2016-10-04] MEDS: Meropenem Inj 2,000 MG in 0.9% Sodium Chloride 100 ML IV SCH ×2 (08:49→20:55)
[2016-10-04] MEDS: Micafungin Inj 150 MG in 0.9% Sodium Chloride 100 ML IV SCH (08:49)
[2016-10-04] MEDS: Senna Leaf Extract 528 mg/15 mL Syrup PO SCH ×2 (08:51→21:04)
[2016-10-04] MEDS: ACYCLOVIR IV SCH ×2 (08:51→20:56)
[2016-10-04] MEDS: LacriLube S.O.P. 3.5 Gm Ophthalmic Ointment BOTH_EYES SCH ×2 (08:51→21:04)
[2016-10-04] MEDS: DEXTROSE 5% IV SCH ×2 (08:51→20:56)
[2016-10-04] MEDS: Heparin 5,000 Unit/mL Inj SUBQ SCH ×2 (08:54→21:07)
[2016-10-04] MEDS: 0.9% Sodium Chloride 250 ML IV SCH (09:06)
--- NOTE | 2016-10-04 09:07 | ABG ---
DateTimeAnalyzed 09:05:00 -_ pH ____7.386 - 7.350 7.450 pCO2 ___48.1__ -mmHg 35.0 45.0 pO2 101 -mmHg 69.0 116 HCO3- ___28.2__ -mmol/L 22.0 26.0 ABE ____3.4__ -mmol/L -2.0 2.0 tHb ____7.1__ -g/dL O2Hb ___96.4__ -% COHb ____1.4__ -% MetHb ____0.6__ -% sO2 ___98.4__ -% 25.0 FIO2 ___60.0__ -% PEEP ___12.0__ -cmH2O Set_RR ___24.0__ -b/min Vt __480.0__ -L Drawn By NB - Date/Time Notified____ 09:05:00 -_ Oxygen Device 1 VENTILATOR - Notified By NB - Notified Whom _Ania, RN - B 766 -mmHg tO2 ____9.8__ -Vol% Jeevan test N/A -
[2016-10-04] MEDS: Albumin 25% 25 GM in IV Premix 1 EACH IV SCH (11:49)
--- NOTE | 2016-10-04 13:21 | PCM.PNMED ---
Subjective Date of Service Oct 04, 2016 Subjective Remains in the critical condition. on norepinephrine, febrile Tmax 38.3 Hb 6.8, PRB is being transfused. Family is at the bedside. Exam Vital Signs Vital Sign - Last Date Time Temp Pulse Resp B/P Pulse Ox O2 Delivery O2 Flow Rate FiO2 10/04/16 12:55 36.8 70 25 143/46 10/04/16 11:39 Ventilator 10/04/16 11:39 96 50 Intake and Output 10/03/16 10/03/16 10/04/16 Cumulative From/Thru 15:00 23:00 07:00 09/21/16 19:30 - 10/04/16 06:54 Intake Total 3707 ml 4400 ml 02145 ml Output Total 1555 ml 1855 ml 16632 ml Balance 2152 ml 2545 ml 35587 ml Intake Oral 60 ml IV Total 1728 ml 2004 ml 48761 ml Tube Feeding 798 ml 1015 ml 25627 ml Tube Irrigant 1181 ml 1381 ml 9471 ml Output Urine Total 1550 ml 1600 ml 81001 ml Stool Total 250 ml 1460 ml Gastric Drainage Total 1565 ml Chest Tube Drainage Total 5 ml 5 ml 390 ml # Bowel Movements 1 8 Exam GA: intubated, sedated. HEENT: atraumatic, injected conjunctiva, ETT/OG in place. Heart: RRR, normal S1/S2, no murmur. Lungs: equal BS, scattered rhonchi. right chest tube in place. Abd: soft, moderate distension, decreased BS. Ext: 3+ edema, sacral swelling. : severe scrotal swelling, hearn cath in place with yellowish urine. Skin: right IJ in place, crusted papules noted on left shoulder. Lab and Diagnostics Result Diagram: 10/04/16 0440 10/04/16 0415 Microbiology CSF positive for VZV MRSA negative Buttock culture positive for staphylococcus aureus Blood cultures 2 out of 4 positive for gram positive cocci Sputum positive for staphylococcus aureus Clostridium difficile negative X-Rays, CTs and MRIs X-RAY CHEST ONE VIEW, PORTABLE IMPRESSION: Right thoracostomy tube. No pneumothorax or subcutaneous emphysema. Dictated by: Simona Johnson M.D. on 09/25/2016 at 18:52 Approved by: Simona Johnson M.D. on 09/25/2016 at 18:52 X-RAY CHEST ONE VIEW, PORTABLE IMPRESSION: 1. Support lines and tubes as above. 2. Bilateral pleural effusions, right greater than left. 3. Bilateral lower lung consolidation, increasing involving the right lung base and similar involving the left. Dictated by: Francisco Javier BASSETT Interpreted: Merry Robison MD on 09/23/2016 at 9:45 Transcribed by: JIM on 09/23/2016 at 9:45 Approved by: Merry Robison MD, PhD on 09/23/2016 at 16:56 X-RAY CHEST ONE VIEW, PORTABLE IMPRESSION: 1. Support lines and tubes as above. 2. Abnormal opacity within the right lung and the lung bases consistent with pulmonary edema and/or diffuse bilateral inflammatory process. Recommend clinical correlation and followup. Dictated by: Francisco Javier BASSETT Interpreted: Jammie Drake MD on 09/22/2016 at 9: 13 X-RAY CHEST ONE VIEW, PORTABLE IMPRESSION: Improved aeration of the right lung and decreased pleural effusion when compared with the prior study. Dictated by: Simona Johnson M.D. on 09/27/2016 at 8:30 12-lead ECG Normal sinus rhythm at 116 bpm, left axis deviation present, QTC 478, mild widening of QRS complex (104 ms) Additional Diagnostics DateTimeAnalyzed 05:08:00 -_ pH ____7.415 - 7.350 7.450 pCO2 ___46.1__ -mmHg 35.0 45.0 pO2 ___44.8__ -mmHg 69.0 116 HCO3- ___29.0__ -mmol/L 22.0 26.0 ABE ____4.5__ -mmol/L -2.0 2.0 Assessment & Plan 1. DANY on CKD due to nonoliguric ATN. 2. Hypervolemic hypernatremia. 3. Anasarca. - now with low effective circulating volume. 4. Septic shock/Staphylococcus bacteremia. 5. Candiduria, suspected disseminated candidiasis. 6. Disseminated zoster. 7. h/o CLL. Plan: Pt with low effective circulating volume and unstable hemodynamics, will hold IV lasix for now. IV 25% albumin q 12 hr. continue levophed to support BP, keep MAP > 65 mmHg. GI Prophylaxis: H2 germaine VTE Prophylaxis: Sub-Q Heparin (Unfractionated) VTE Mechanical Devices: Intermittant Pneumatic CD Resuscitation Status: CPR: Attempt Resuscitation Susan Ross MD Oct 04, 2016 13:21
[2016-10-04 14:36] LABS: Mean Corpuscular Hemoglobin 28.1 pg (27.0-35.0); Mean Corpuscular Volume 91.3 fL (81-100); Platelet Count 146 bil/L (150-400)
[2016-10-04 15:18] LABS: BASOPHILS % (AUTO) 1 % (0-3); EOSINOPHILS % (AUTO) 6 % (0-5); MONOCYTES % (AUTO) 3 % (4-12); NEUTROPHILS % (AUTO) 56 % (40-74)
--- NOTE | 2016-10-04 16:14 | PROG NOTE ---
[address] [address] PROGRESS NOTE PATIENT: BRITTNEY CASILLAS : 1940 MR#: [id number] ADMIT: 09/21/2016 JOB ID: [id number] DATE: 10/04/2016 PULMONARY CRITICAL CARE FOLLOWUP NOTE: 1. Acute hypoxemic respiratory failure. 2. Acute renal failure. 3. Hypertension. 4. Herpes zoster meningoencephalitis. 5. PICC line. SUBJECTIVE: None. Patient sedated on mechanical ventilation. OBJECTIVE: Temperature 36.9, with T-max being 37.6. Pulse mid 70s to as high as 101, respiratory rate 24 with ventilator set at 24. Blood pressure 137/50. O2 sat on FiO2 of 50%, PEEP of 12, is 98%. I and O shows 7.9 L in, 2.9 L out. General appearance: Sedated on ventilator. No particular response to pain. Chest is relatively clear with fairly good breath sounds bilaterally. No use of accessory muscles. Peak inspiratory pressure with a tidal volume of 480, PEEP of 12 is low 30s. Plateau about 26. PEEP is set at 12, hard to measure. Heart: Somewhat irregular rhythm. Heart tones seem normal. Abdomen is soft. Quiet. Nondistended. Extremities: 2 to 3+ pretibial edema. LABORATORY DATA: Shows a white count of 12,400 with normal differential. Hemoglobin 6.5, down from 7.1 yesterday. Platelet count 141,000, relatively stable. Sodium 148, potassium 3.9, chloride 108, CO2 is 30, BUN 66, creatinine 1.4, and continuing to improve. Calcium 7.3 with an albumin of 3. Transaminases are normal. ASSESSMENT: Hypoxemic ventilatory failure. On higher levels of PEEP. I think we can decrease that somewhat as pO2 is 101 pCO2 48, pH of 7.38. Might drop PEEP from 10-12 and see how we do With this in mind, he was 5 L positive yesterday. Fluid balance may be impacting his respiratory status. PLAN: 1. Consider decreasing PEEP to 10. 2. Continue fluid management as per Nephrology. 3. Discussed the situation with the family. Brought them up to date with the current situation as well as the plans for tomorrow. Indicated that the MRI may be extremely valuable in evaluation of his status and prognosis. Time spent in critical care, 35 minutes.
--- NOTE | 2016-10-04 16:31 | PROG NOTE ---
[address] [address] PROGRESS NOTE PATIENT: BRITTNEY CASILLAS : 1940 MR#: [id number] ADMIT: 09/21/2016 JOB ID: [id number] DATE: 10/03/2016 PULMONARY CRITICAL CARE FOLLOWUP NOTE: 1. Acute hypoxemic respiratory failure. 2. 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 3. Acute kidney injury. 4. CLL. 5. Anasarca. OBJECTIVE: Temperature 36.9, respiratory rate 28 with ventilator set at 24. Blood pressure 117/48. O2 sat on FiO2 60%, PEEP of 12 is 97%. General appearance: Sedated on ventilator. Chest: Fair breath sounds bilaterally. Maybe somewhat more diminished in the right lower lung field. A few crackles at bases. Heart: Somewhat irregular rhythm. Heart tones seem normal. Abdomen soft. Nondistended. Quiet. Extremities: 2 to 3+ pretibial edema. Skin: Scabbing lesions consistent with healing shingles on left neck and upper arm, extending onto the forehead. LABORATORY: Shows a white count of 14,100. Diff not available. Diff earlier this morning showed 58 polymorphonuclears, 3 bands, 1 metamyelocyte, 27 lymphocytes. Hemoglobin 7.1 and stable. Platelet count rising at 150,000. Sodium 151, potassium 3.8, chloride 110, CO2 is 29, BUN 76, and stable. Creatinine 1.84 and somewhat worse than yesterday's value of 1.69. Calcium 7.3. Albumin 2.5. Transaminases are normal. Phosphorus normal at 4.3. Magnesium low-normal at 1.8. Lower limits of normal being 1.6. Chest x-ray shows unchanged bilateral airspace infiltrates, worse in the right lower lung field than the left. Venous blood gases on tidal volume of 480, PEEP of 12, FiO2 60% show a pCO2 of 46, pH 7.41, showing normal ventilation, mild metabolic alkalemia. ASSESSMENT: 1. Hypoxemic respiratory failure. Doing about the same. O2 sats are running in the mid 90s. I think we can probably decrease the PEEP a bit and see how he does. Otherwise, no particular change in his condition. 2. Herpes zoster meningoencephalitis. Plan is for MRI angiogram Wednesday. Hopefully, we can get his creatinine down to a reasonable level for the study. Will likely need to go down with the patient in order to avoid all his drips. Probably have to push the sedatives, other medications that he will require during the MRI. Will need to figure out the logistics of this study in detail. 3. Hypernatremia. Renal consult doing excellent job in terms of balancing fluids with his hypernatremia. Remains anasarcic. I and O was pretty even yesterday. PLAN: 1. Consider decreasing PEEP to 10. 2. Continue current vent settings. Time spent, 30 minutes.
[2016-10-04] MEDS: fentaNYL 2,500 mCg/250 mL 2,500 MCG in IV Premix 1 EACH IV PRN (18:35)
--- NOTE | 2016-10-04 19:15 | NUR ---
Sedation/low HH/ skin redness Unable to wean down IV sedation/pain medications propofol and fentanyl drips. Mid day patient appeared to be agitated with increased respiratory rate in mid 30s with no obvious cause/resin. Patient was able to relax after two 2ml boluses of propofol and increasing both fentanyl and propofol drips- he began to breathe with the ventilator at 24-26 breaths per min. Low HH at 6.8 and 22- patient was given one unit of PRBC. Patient was premedicated with Tylenol 975mg per OG and dose of Benadryl 25mg per OG tube as well. HH obtained 2h following transfusion were 7.4 and 24- continue assessment. Abdominal red rash appeared to be increased on the right abdomen and hip extending to right flank and right posterior thigh, left abdomen/side did not appeared to be increased- attending MD was made aware- no new orders were received at the time- continue skin care and repositioning Q2h and PRN, continue medications, continue assessment.
--- NOTE | 2016-10-04 20:31 | PROCED ---
[address] [address] EEG PATIENT: BRITTNEY CASILLAS : 1940 MR#: [id number] ADMIT: 09/21/2016 JOB ID: [id number] DATE OF SERVICE: 10/02/2016 HISTORY: The patient is a 76-year-old man with altered mental status. TECHNICAL DESCRIPTION: This digital EEG was recorded using 25 scalp and ear, and 2 EKG electrodes. It was reviewed in bipolar and referential montages following reformatting of the 10-20 International Electrode Placement System. The propofol was held before this electroencephalogram was performed. During the recording, the patient was noted to be lethargic. This EEG is composed of predominantly delta with some intermixed theta activity. The background activity did not appear to be clearly reactive to eye opening. There appeared to be a mild increase in the frequency of cortical activity associated with stimulation in this case, calling patient's name, clapping near the left ear, deep pressure on the left index finger and deep pressure on the right great toe, where there was some mild increase in frequency. There is no clear posterior dominant rhythm noted. I would change the statement such that I would say, this EEG was performed in the comatose state. Hyperventilation was not performed. Photic stimulation from 1-30 Hz did not elicit any photic driving response. The EKG rhythm strip revealed a heart rate of 60 to 80 beats per minute with occasional premature ventricular contractions noted. There also was prominent respiratory artifact throughout this recording. IMPRESSION: This electroencephalogram performed in the comatose state is abnormal. The slow background activity is suggestive of moderate cerebral cortical dysfunction/encephalopathy. This is a nonspecific finding and may be seen in a wide variety of different clinical conditions, including secondary to medication effect, as well as medical conditions such as toxic metabolic, hypoxic, inflammatory, autoimmune and infectious states. If clinically indicated, a repeat study performed off all sedative agents may be helpful. Clinical correlation is advised. MTDD
[2016-10-04] MEDS: Insulin GLARgine 100 Unit/mL Syringe SUBQ SCH (21:08)
[2016-10-04] MEDS: Albumin 25% 100 ML IV SCH (23:48)
[2016-10-05] VITALS (16 sets, daily range): BP systolic 99–144; BP diastolic 42–58; PULSE 91–99; RESP 25–28; O2SAT 94–99
--- NOTE | 2016-10-05 00:26 | PCM.PNMED ---
Subjective Date of Service Oct 04, 2016 Amy Villegas is a 76-year-old male with CLL currently on chemotherapy with past medical history significant for likely COPD, recent visit to [facility] in [place], and ongoing hypertension directly transferred to [facility] from [facility] due to acute septic shock secondary to presumed aspiration pneumonia. Hospital day 14. Overnight: Ongoing fevers. Today: Patient remains intubated and sedated. Patient with no response to physical stimulation. Norepinephrine at 0.18 to maintain MAPs > 60. Fentanyl and versed gtt for sedation. Tube feeds at goal and free water flushes increased with minimal residuals. ROS is not obtainable. Exam Vital Signs Vital Sign - Last Date Time Temp Pulse Resp B/P Pulse Ox O2 Delivery O2 Flow Rate FiO2 10/04/16 23:58 36.9 83 27 142/47 98 Mechanical Ventilator 50 Intake and Output 10/04/16 10/04/16 10/05/16 Cumulative From/Thru 15:00 23:00 07:00 09/21/16 19:30 - 10/04/16 17:08 Intake Total 305 ml 3468 ml 46905 ml Output Total 1250 ml 24895 ml Balance 305 ml 2218 ml 01516 ml Intake Oral 60 ml IV Total 50 ml 1433 ml 37583 ml Tube Feeding 785 ml 73867 ml Packed Cells 255 ml 255 ml Tube Irrigant 1250 ml 33133 ml Output Urine Total 1250 ml 84056 ml Stool Total 1460 ml Gastric Drainage Total 1565 ml Chest Tube Drainage Total 0 ml 390 ml # Bowel Movements 8 Exam Gen: Intubated and sedated, anasarca HEENT: PERRLA, corneal edema, large neck, R IJ in place. Cardio: Regular rate and rhythm, no murmurs noted. Respiratory: Faint crackles in bilateral bases. Mechanically ventilated. Right chest tube in place. Abdomen: Soft, distended, normal bowel sounds. : Prado and FMS in place. Scrotal edema. Skin: Shingles on the left shoulder anteriorly and superiorly currently crusted. Extremities: Lower extremity edema and anasarca. Neurologic: Patient sedated. Psych: Patient sedated. IVs and Medications Medications Reviewed: Medications were reviewed in detail Lab and Diagnostics Result Diagram: 10/04/16 1410 10/04/16 1410 Microbiology CSF positive for VZV MRSA negative Buttock culture positive for staphylococcus aureus Blood cultures 2 out of 4 positive for gram positive cocci Sputum positive for staphylococcus aureus Clostridium difficile negative X-Rays, CTs and MRIs X-RAY CHEST ONE VIEW, PORTABLE IMPRESSION: Right thoracostomy tube. No pneumothorax or subcutaneous emphysema. Dictated by: Simona Johnson M.D. on 09/25/2016 at 18:52 Approved by: Simona Johnson M.D. on 09/25/2016 at 18:52 X-RAY CHEST ONE VIEW, PORTABLE IMPRESSION: 1. Support lines and tubes as above. 2. Bilateral pleural effusions, right greater than left. 3. Bilateral lower lung consolidation, increasing involving the right lung base and similar involving the left. Dictated by: Francisco Javier BASSETT Interpreted: Merry Robison MD on 09/23/2016 at 9:45 Transcribed by: JIM on 09/23/2016 at 9:45 Approved by: Merry Robison MD, PhD on 09/23/2016 at 16:56 X-RAY CHEST ONE VIEW, PORTABLE IMPRESSION: 1. Support lines and tubes as above. 2. Abnormal opacity within the right lung and the lung bases consistent with pulmonary edema and/or diffuse bilateral inflammatory process. Recommend clinical correlation and followup. Dictated by: Francisco Javier BASSETT Interpreted: Jammie Drake MD on 09/22/2016 at 9: 13 X-RAY CHEST ONE VIEW, PORTABLE IMPRESSION: Improved aeration of the right lung and decreased pleural effusion when compared with the prior study. Dictated by: Simona Johnson M.D. on 09/27/2016 at 8:30 12-lead ECG Normal sinus rhythm at 116 bpm, left axis deviation present, QTC 478, mild widening of QRS complex (104 ms) Additional Diagnostics DateTimeAnalyzed 05:08:00 -_ pH ____7.415 - 7.350 7.450 pCO2 ___46.1__ -mmHg 35.0 45.0 pO2 ___44.8__ -mmHg 69.0 116 HCO3- ___29.0__ -mmol/L 22.0 26.0 ABE ____4.5__ -mmol/L -2.0 2.0 Assessment & Plan Magdaleno Villegas is a 76-year-old male with CLL currently on chemotherapy with past medical history significant for likely COPD, recent visit to [facility] in [place], and ongoing hypertension directly transferred to [facility] from [facility] due to acute septic shock secondary to presumed aspiration pneumonia. Hospital day 14. 1. Severe sepsis with shock, present on admission. Active. - Etiology multifactorial including disseminated zoster, staph bacteremia, and decubitus ulcer on left ischial tuberosity. - At [facility] patient became hypotensive and unresponsive to fluids and was started on three pressors and transferred to [facility]. - On admission here patient tachycardic, pro-calcitonin 21.82, lactic acid of 4.8 (lactic acid at [facility] was 1.4). - Norepinephrine titrated off on 09/28. Restarted 10/02. Currently at 0.1. - IV 25% albumin q 12 hr x 2 doses started 10/03. - Blood cultures and lumbar puncture as below. - Dr. Ritter consulted, appreciate the expertise. 2. Staphylococcus bacteremia, present on admission active. - Blood cultures 2 out of 4 positive. - Repeat blood cultures drawn with no growth on 09/27. - Nafcillin continuos infusion from 09/24-09/30. - Meropenem started 09/30. - Dr. Ritter consulted, appreciate time and expertise. 3. Disseminated zoster, present on admission, active. - Encephalitis, hepatitis, and pneumonitis secondary to disseminated zoster - Evidence of multiple lesions in multiple dermatomes. Currently crusted. - Continue on IV acyclovir, dose adjusted for renal failure by Dr. Ritter - Lumbar puncture with high opening pressure. CSF clear, WBC 19, RBC 2, Mononuclear WBCs 100, Polynuclear WBCs 0, Glucose 75, Protein 58. - Continues to be unresponsive to stimuli. - EEG completed 10/02. - Unable to proceed with MRI on 10/02 as anesthesiologist will need to be present. Plan to complete on Wednesday, 10/05. - Dr. Ritter consulted, appreciate the expertise. 4. Acute hypoxic respiratory failure, present on admission, active. - Patient presented with severe hypoxia and was requiring 100% FiO2, 12 of PEEP , respiratory rate of 35, and tidal volumes were initially 600 mL but was quickly taken down to 470 mL. - Chest tube placed 09/25 due to hypoxemia secondary to large pleural effusion. - Patient also has suspected underlying COPD which will complicate his pulmonary course. - Ventilator management per ICU team, appreciate the expertise 5. Lactic acidosis, present on admission, active. - Etiology is likely infectious but patient's CLL likely a contributing factor. - Lactic acid 4.8 on admission. - Will continue to monitor. 6. Acute kidney injury, present on admission, improving. - Patient presented to [facility] with a creatinine of 0.8, however over the subsequent days prior to his transfer here he was having a slow increase in his creatinine up to 1.6 and after pressure support his creatinine on arrival here was 2.21. - This acute kidney injury is likely due to hypoperfusion/prerenal secondary to dehydration and excessive pressure support with 2 peripheral vasoconstrictors and Levophed. Likely has a degree of ATN. - Lasix 40mg IV Q12H held due to hemodynamic instability. - Continues to have good urine output. - Continue to monitor I and O and daily BMP - No indication for dialysis at this time - Nephrology consulted. Appreciate time and expertise. 7. Hypernatremia, not present on admission, active. - Lasix as above. - Free water flushes increased to 300 ml Q4H. - D5W 60 ml/hr. - Meds to be mixed in d5w. - Continue to monitor with BMP. 7. Chronic lymphocytic leukemia, present on admission, undergoing oral chemotherapy prior to hospitalization. - No records available thus far but patient appears to be on current chemotherapy per family. - Neupogen given per Dr. Benavides's recommendations. - Heme/Onc consulted. Appreciate time and expertise. 8. Elevated liver enzymes, present on admission, improving. - Etiology likely multifactorial including disseminated zoster and shock liver. - Liver enzymes trending down. 9. Acute encephalopathy, present on admission, active. - Patient has a recent history of acute confusion with hospital admission and resolution of confusion during those stays. 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 - Sedation titrated down but continues on fentanyl and versed. - CT head showed no acute intracranial process. - Lumbar puncture with high opening pressure. CSF clear, WBC 19, RBC 2, Mononuclear WBCs 100, Polynuclear WBCs 0, Glucose 75, Protein 58. 10. Decubitus ulcer, present on admission, active. - Wound culture grew bacteroides fragillis. - Metronidazole 1000 mg Q12H. - Wound care consulted. 11. 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 - Micafungin 150 mg Q24H. Disposition: Patient remains critically ill and in the CCU. Patient requiring pressors at this time and not tolerating decreased sedation. Plan to proceed with MRI on 10/05 to evaluate brain more thoroughly. Overall his prognosis is guarded and with poor improvement in mental status with reduction of sedation likely the MRI will prove that his brain is severely damaged by the VZV. GI Prophylaxis: H2 germaine VTE Prophylaxis: Sub-Q Heparin (Unfractionated) VTE Mechanical Devices: Intermittant Pneumatic CD Resuscitation Status: CPR: Attempt Resuscitation Attending Statement The patient was seen and examined together with Dr. Khan on 10/04/2016 and I agree with the history, exam and plan as outlined in the note above. . Aisha Khan DO Oct 05, 2016 00:26 Coleman Velásquez MD Oct 09, 2016 16:14
[2016-10-05] MEDS: Propofol Inj 1,000,000 MCG in IV Premix 1 EACH IV SCH ×5 (02:11→23:46)
[2016-10-05] MEDS: Insulin Human REGular 300 Unit/3 mL Inj SUBQ SCH ×4 (02:17→20:25)
[2016-10-05] MEDS: Chlorhexidine 0.12% 15 mL Oral Solution MT SCH ×5 (04:50→20:17)
--- NOTE | 2016-10-05 05:39 | NUR ---
Mentation/Cardiac/Resp/GI Patient remains sedated on vent, no purposeful movements and not following commands, 50% FIO2, PEEP 12, sedated on Fentanyl, Propofol and Precedex, HR NSR 90's this AM and BP stable while titrating Levophed down, patient was on 0.14mcg/kg/min of Levophed at start of shift and gtt is currently on 0.02mcg/kg/min with a BP of 126/43 - MAP 71, will turn gtt of shortly and monitor BP closely to see if patient is able to maintain BP without pressors. Tolerating TF well with residuals 55-125 this shift, 200ml out in FMS and bowel regimen given, good urine output, family visiting last night and updated on POC, will continue to monitor and report off to day shift RN, no distress noted. Addendum: 10/05/16 at 0547 by MICHAEL AGUILA RN Amended: Links added.
[2016-10-05 06:50] LABS: Mean Corpuscular Hemoglobin 29.2 pg (27.0-35.0); Mean Corpuscular Volume 91.7 fL (81-100); Platelet Count 111 bil/L (150-400)
[2016-10-05] MEDS: Meropenem Inj 2,000 MG in 0.9% Sodium Chloride 100 ML IV SCH ×2 (07:46→20:10)
[2016-10-05] MEDS: Heparin 5,000 Unit/mL Inj SUBQ SCH ×2 (07:46→20:17)
[2016-10-05] MEDS: Famotidine Inj 20 MG in IV Premix 1 EACH IV SCH (07:46)
[2016-10-05] MEDS: Micafungin Inj 150 MG in 0.9% Sodium Chloride 100 ML IV SCH (07:47)
[2016-10-05] MEDS: ACYCLOVIR IV SCH ×2 (07:47→20:17)
[2016-10-05] MEDS: DEXTROSE 5% IV SCH ×2 (07:47→20:17)
[2016-10-05] MEDS: Senna Leaf Extract 528 mg/15 mL Syrup PO SCH ×2 (07:48→20:17)
[2016-10-05] MEDS: LacriLube S.O.P. 3.5 Gm Ophthalmic Ointment BOTH_EYES SCH ×2 (07:48→19:29)
[2016-10-05] MEDS: 0.9% Sodium Chloride 250 ML IV SCH ×2 (07:48→10:06)
[2016-10-05 08:03] LABS: BASOPHILS % (AUTO) 0 % (0-3); EOSINOPHILS % (AUTO) 1 % (0-5); MONOCYTES % (AUTO) 11 % (4-12); NEUTROPHILS % (AUTO) 62 % (40-74)
[2016-10-05] MEDS ORDERED: 0.9% Sodium Chloride 250 ML IV ONE (08:25)
[2016-10-05 08:48] LABS: Bilirubin, Direct 0.4 mg/dL (0.0-0.3)
--- NOTE | 2016-10-05 08:55 | PROG NOTE ---
[address] [address] PROGRESS NOTE PATIENT: BRITTNEY CASILLAS : 1940 MR#: [id number] ADMIT: 09/21/2016 JOB ID: [id number] DATE: 10/05/2016 REASON FOR FOLLOW UP: Staph septic shock, disseminated VZV, and possible disseminated fungal infection now with new fever. INTERVAL HISTORY: Over the weekend, the patient has remained critically ill in the ICU. At times, he has been on low-dose vasopressors and he has always been intubated and sedated. Attempts to light his sedation lead to extreme agitation without any ability to follow commands or interact meaningfully. He remains on 50% FiO2 and 12 of PEEP. There is little secretions through the endotracheal tube. This case was discussed at the bedside with the nurse, the patient's family and the ICU team. PHYSICAL EXAMINATION: Reveals a critically ill gentleman, lying supine and intubated in the ICU. He is right now febrile to 38.1, and that is his first fever in 24 hours, as yesterday about midnight he was febrile to 38.3. Pulse is currently in the 90s, blood pressure 132/52, and his norepinephrine has been off and on in low doses, and is currently off. His FiO2 and PEEP 50 and 12. Examination of the skin reveals that all cutaneous zoster lesions have completely crusted. On the wrist, there are some erythematous abrasions related presumably to restraints. On the flanks and the back, there is a confluent macular erythematous rash, which has not changed in several days. The eyes still have the hemorrhagic type conjunctivitis. Oral endotracheal tube and orogastric tube are present. Central line in the right neck appears benign. Lungs with scattered rales and rhonchi as before. The cardiac tones are regular at this point. Abdomen slightly distended, but without focal mass or evident abnormality. Right chest tube is still present. Scrotum is grossly enlarged as before, without mitzi skin breakdown. Prado catheter is present. Lower extremities with 2+ edema up to the lower abdomen. LABORATORIES: Include a white count today 7400, which is strikingly lower than previously. It is worth noting his hematocrit is 19, his platelets are 111. All these values are far different than yesterday and I wonder if these should be repeated. Creatinine is 1.36, which is in keeping with yesterday's, and shows dramatic improvement. His GFR is now estimated to be 54. Liver function tests are normal. A recent procalcitonin was 0.52. That was done yesterday, and that is down from a peak of 31, shortly after admission. Urinalysis with 0-5 white cells. That was done yesterday. Fungitell from the is pending. In terms of microbiology, we have urine x2 now growing Gisel albicans. Sputum is also growing Gisel. Blood fungal cultures remain negative. One blood culture drawn from the , though, is growing a gram-positive coccus which appears to be Staph and is yet to be identified. Sputum from the shows many polys and rare george. IMAGING: Includes a chest x-ray, with multifocal infiltrates, no change. IMPRESSION: This remains a case of amazing complexity. We have now treated the disseminated Varicella zoster virus (VZV), which does include encephalitis, for a total of 13 days, and I think it is reasonable to stop tomorrow and reassess where we are. There are plans today to consider obtaining an MRI scan to go with the EEG that was obtained on Wednesday that shows that the EEG showed moderate cerebral cortical dysfunction and was nonspecific. With respect to the patient's Staph aureus bacteremia he came in with we have now treated for 14 days. We have been switching back and forth between meropenem and nafcillin. The meropenem was added because of a potential for a nosocomial pneumonia or other nosocomial super infection. At this point, we have completed six days of meropenem. I think tomorrow it is reasonable to switch off the meropenem back to narrow focus treatment for his MSSA bacteremia on admission. Unfortunately, we now have another blood culture which is positive for Staph, which I suspect will be a coag-negative Staph contaminant, but we cannot know that for sure until tomorrow, so will go ahead and add back some daptomycin at least until tomorrow when we have a final ID on the organism and then further define our Staph therapy tomorrow. With respect to possibility of disseminated yeast infection, we have added micafungin, and we await additional maturation of the fungal blood cultures as well as repeat Fungitell. RECOMMENDATIONS: 1. I agree with the MRI scan of the brain to be done today and this is of paramount importance. 2. Fungal blood cultures will be checked today. 3. I will add daptomycin today. 4. I would discontinue both meropenem and acyclovir tomorrow morning. 5. Will continue with micafungin for the time being, but possible switch to fluconazole in the near future. 6. 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
--- NOTE | 2016-10-05 08:55 | ABG ---
DateTimeAnalyzed 08:48:00 -_ pH ____7.370 - pCO2 ___51.5__ -mmHg pO2 ___39.1__ -mmHg HCO3- ___29.1__ -mmol/L ABE ____4.0__ -mmol/L tHb ____6.1__ -g/dL O2Hb ___72.1__ -% COHb ____1.8__ -% MetHb ____1.0__ -% sO2 ___74.2__ -% FIO2 ___50.0__ -% PRVC 480 - PEEP ___12.0__ -cmH2O Set_RR ___24.0__ -b/min Vt __500.0__ -L Drawn By rn - Date/Time Notified____ 08:53:00 -_ Spontaneous_RR ___26.0__ -b/min Oxygen Device 1 VENTILATOR - Notified By cf - Notified Whom sharona,aaliyah - B 767 -mmHg tO2 ____6.2__ -Vol% Jeevan test N/A -
[2016-10-05] MEDS: DAPTOmycin Inj 750 MG in 0.9% Sodium Chloride 50 ML IV SCH (10:06)
[2016-10-05] MEDS: Dexmedetomidine 400 mCg/100 mL 400 MCG in IV Premix 1 EACH IV SCH ×2 (10:07→20:07)
--- NOTE | 2016-10-05 11:06 | NUR ---
Social Work Note: Continued Discharge Planning Data& Assessment: SW met with pt family at bedside to assess for any unmet needs, SW role explained. SW phone number provided on pt whiteboard. Pt family denies any needs at this time. Pt to have MRI completed today for evaluation of brain function per MD in morning rounds. SW to continue to follow. Plan: SW to continue to follow for MD evaluation and recommendations. SW available if any needs arise with pt and pt family. SW to continue to follow. OMAYRA Ceja
--- NOTE | 2016-10-05 11:10 | NUR ---
GREGORY Signed by pt family OMAYRA Ceja
--- NOTE | 2016-10-05 11:19 | NUR ---
NUTRITION FOLLOW-UP ASSESS: 76 YO M admitted to CCU with acute hypoxic respiratory failure, severe sepsis, MSSA pneumonia and disseminated zoster with meningoencephalitis. Pt remains ventilator dependent. Pt on Jevity 1.5 formula d/t improved potassium and phosphorous levels, currently at goal. Plan for brain MRI today. Per CCU rounds, plan to try to remove sedation. PMHX: CLL with poor prognosis, HTN, hypercholesterolemia, GERD, cataracts, COPD. LABS: Reviewed. Na 148, BUN 54, Cr 1.36, Glu 245, Ca 7.4, (10/04): Alb 3.2 MEDS: Insulin, Albumin, Fentanyl, Propofol at 27.8 ml/hr providing 734 kcal/day, Precedex, Pressor, Senna, Colace. GI: Stool via FMS. SKIN: Mario 12, Disseminated zoster, non-stageable pressure injury on his left ischium. WT: 137.8 kg, BMI: 46.2 kg/m2, Admit wt: 116.0 kg (BMI 38.9 kg/m2), IBW: 70 kg NUTRITION SUPPORT: Jevity 1.5 @ goal rate 75 ml/hr providing 2,475 kcal and 105 g protein (100% estimated needs). ESTIMATED NEEDS: BMI (based on Admit Wt) Calories: 3691-7690 kcal/day (20-22 kcal/kg Admit BW) Protein: 105-120 g/day (1.5-1.8g/kg IBW) Fluid: 2400 ml/day (~1 ml/kcal/d) NUTRITION DIAGNOSIS: 1) Inadequate oral intake related to decreased ability to consume sufficient energy as evidenced by current vent / NPO status - IMPROVED WITH ENTERAL FEEDING AT GOAL RATE. NUTRITION INTERVENTION: 1) Continue current TF as ordered. 2) If pt to remain on Propofol, recommend decreasing TF rate to better meet pt's estimated needs. MONITOR/EVALUATE: TF tolerance, vent/NPO status, wt, labs, GI, POC, nutrition status. Follow per high nutrition risk guidelines.
--- NOTE | 2016-10-05 11:47 | DRSVH ---
[facility] [address] [place] [address] Echocardiogram Report Name: BRITTNEY CASILLAS MStudy Date: 10/05/2016 Sanaz ht: 66 in Hospital Exam Location: [facility] Andrea ht: 304 lb Gender: Male BSA: 2.4 m2 : 1940 Age: 76 yrs BP: 130/48 mmHg Reason For Study: RE-EVALUATE HEART VALVES Ordering Physician: HOSPITALIST DINORA Performed By: Katerine Sheppard Referring Physician: Thomas Coronel Interpretation Summary The left ventricle is grossly normal size. The left ventricular ejection fraction is grossly normal. The right ventricle grossly appears normal in size with probable normal systolic function. Very poor quality study. Consider REGINALD to better determine any valvular heart disease. Procedure: This is a limited echocardiogram to re-evaluate heart valves for possible vegetation. Once again image quality is poor due to body habitus. The patient is intubated and unable to follow breathing instructions. Comparison is made with the echocardiogram of 09-22-2016. The patient was in normal sinus rhythm during the exam. Left Ventricle: The left ventricle is grossly normal size. The left ventricular ejection fraction is grossly normal. Spectral Doppler of the mitral valve is reversed, with an E/A wave ratio < 1.0. Right Ventricle: The right ventricle grossly appears normal in size with probable normal systolic function. Mitral Valve: The mitral valve is not well visualized. No obvious vegetation, but unable to R/O due to poor image quality. Aortic Valve: The aortic valve is trileaflet. No obvious vegetation, but unable to R/O due to poor image quality. Tricuspid Valve: The tricuspid valve leaflets are thin and pliable. No obvious vegetation, but unable to R/O due to poor image quality. Pulmonic Valve: The pulmonic valve is not seen. Pericardium/ Pleura There is no pericardial effusion. Doppler Measurements & Calculations MV E max benjy: 87.1 cm/sec MV E/A: 0.80 MV P1/2t max benjy: 87.7 cm/sec MV A max benjy: 108.2 cm/sec MV P1/2t: 73.6 msec MVA(P1/2t): 3.0 cm2 Reading Physician:11:46 AM
[2016-10-05] MEDS: Albumin 25% 100 ML IV SCH (11:54)
--- NOTE | 2016-10-05 12:06 | PCM.PNMED ---
Subjective Date of Service Oct 05, 2016 Subjective PULMONARY/CRITICAL CARE PROGRESS NOTE Overnight: No acute events reported. Today: Febrile at 38.1. No acute distress noted, but observed to be using accessory muscles for respirations. No family present at bedside at time of examination. Continues to have anasarca. Levophed titrated down, then off. Receiving 2U pRBC. Labs: Hb 6.3, Hct 19.8, Plt 111, WBC 7.4; Na 148, K 3.9, Cr 1.36 Info: Net IO + [address]; 24hUOP 2850mL Vent: PRVC FiO2 50, PEEP 12, R 24, Vt 480; Chest tube remains in place with nil output Exam Vital Signs Vital Sign - Last Date Time Temp Pulse Resp B/P Pulse Ox O2 Delivery O2 Flow Rate FiO2 10/05/16 08:24 90 99/42 95 50 10/05/16 04:30 Ventilator 10/05/16 04:30 36.9 26 Intake and Output 10/04/16 10/04/16 10/05/16 Cumulative From/Thru 15:00 23:00 07:00 09/21/16 19:30 - 10/05/16 05:06 Intake Total 305 ml 3468 ml 3495 ml 03882 ml Output Total 1250 ml 1475 ml 16348 ml Balance 305 ml 2218 ml 2020 ml 91445 ml Intake Oral 60 ml IV Total 50 ml 1433 ml 1379 ml 64277 ml Tube Feeding 785 ml 963 ml 88382 ml Packed Cells 255 ml 255 ml Tube Irrigant 1250 ml 1153 ml 94307 ml Output Urine Total 1250 ml 1275 ml 10862 ml Stool Total 200 ml 1660 ml Gastric Drainage Total 1565 ml Chest Tube Drainage Total 0 ml 0 ml 390 ml # Bowel Movements 8 Exam General: Intubated and sedated; no acute distress; diffusely edematous, but improving; no responses to stimuli HENT: Sclera anicteric; ETT in place, mucus membranes dry; bilateral corneal edema and conjunctival hemorrhage present Neck: Soft, obese, trachea midline by palpation; edematous; RIJ in place Cardiac: Tachycardic; no murmurs appreciated Respiratory: Sounds faint secondary to habitus, R > L diminished sounds; faint crackles at bases bilaterally; no wheeze appreciated Abdomen: Soft, nontender, nondistended; obese; Moderate pitting anasarca present Extremities: BLLE moderate pitting edema from ankles to abdomen; BLUE moderate pitting edema noted distal extremities to arms Lines: R IJ; Left PICC; bandages dry, intact : Prado in place; urine yellow; moderate-severe scrotal edema present Skin: Multiple scabbed, healed lesions noted over lower abdomen and groin; no active bleeding or exudate noted. Additional scabbed lesions noted diffusely over left shoulder anteriorly without active bleeding or exudate, continue to appear dry and healing; lesions of bilateral wrists erythematous and weeping, no active bleeding; irregular erythematous papular rash noted along anterior region of bilateral hip without bleeding or exudate Neuro: Unable to fully assess secondary to intubation and sedation; not arousable to voice or sternal rub Psych: Unable to assess at this time secondary to intubation and sedation Lab and Diagnostics Result Diagram: 10/05/1662410/05/16624 Microbiology CSF positive for VZV MRSA negative Buttock culture positive for staphylococcus aureus Blood cultures 2 out of 4 positive for gram positive cocci Sputum positive for staphylococcus aureus Clostridium difficile negative X-Rays, CTs and MRIs X-RAY CHEST ONE VIEW, PORTABLE IMPRESSION: Right thoracostomy tube. No pneumothorax or subcutaneous emphysema. Dictated by: Simona Johnson M.D. on 09/25/2016 at 18:52 Approved by: Simona Johnson M.D. on 09/25/2016 at 18:52 X-RAY CHEST ONE VIEW, PORTABLE IMPRESSION: 1. Support lines and tubes as above. 2. Bilateral pleural effusions, right greater than left. 3. Bilateral lower lung consolidation, increasing involving the right lung base and similar involving the left. Dictated by: Francisco Javier BASSETT Interpreted: Merry Robison MD on 09/23/2016 at 9:45 Transcribed by: JIM on 09/23/2016 at 9:45 Approved by: Merry Robison MD, PhD on 09/23/2016 at 16:56 X-RAY CHEST ONE VIEW, PORTABLE IMPRESSION: 1. Support lines and tubes as above. 2. Abnormal opacity within the right lung and the lung bases consistent with pulmonary edema and/or diffuse bilateral inflammatory process. Recommend clinical correlation and followup. Dictated by: Francisco Javier BASSETT Interpreted: Jammie Drake MD on 09/22/2016 at 9: 13 X-RAY CHEST ONE VIEW, PORTABLE IMPRESSION: Improved aeration of the right lung and decreased pleural effusion when compared with the prior study. Dictated by: Simona Johnson M.D. on 09/27/2016 at 8:30 12-lead ECG Normal sinus rhythm at 116 bpm, left axis deviation present, QTC 478, mild widening of QRS complex (104 ms) Additional Diagnostics DateTimeAnalyzed 05:08:00 -_ pH ____7.415 - 7.350 7.450 pCO2 ___46.1__ -mmHg 35.0 45.0 pO2 ___44.8__ -mmHg 69.0 116 HCO3- ___29.0__ -mmol/L 22.0 26.0 ABE ____4.5__ -mmol/L -2.0 2.0 Assessment & Plan PULMONARY/CRITICAL CARE CONSULT NOTE - Hospital day 14 - Ventilator day 14 Mr. Villegas was emergently transferred from [facility] with severe sepsis likely secondary to aspiration PNA. He required intubation and sedation, fluid resuscitation, use of pressor agents, and paralytics. He was stabilized in the CCU, with pressor weaning, and continued ventilatory support. Infectious disease has been consulted to evaluate the source of infection, including the disseminated VZV. Chart review reveals multiple recent hospitalizations at [place] and [facility] within recent days prior to this admission for reported AMS. Imaging was performed at these facilities, and requests were placed to push images to our system and to obtain records. He currently remains stable in the CCU intubated and sedated receiving fluids, pressors, and antibiotics. Repeat CT 09/22 did not reveal any acute pathologies. Echo completed 09/22, was a difficult study, but LV was grossly unremarkable with function, and RV was mildly dilated, but unremarkable in function. Valves were not well visualized. CSF PCR confirmed the presence of zoster. S. aureus has been detected in sputum , blood, and buttock lesion, indicating a staph bacteremia; Bacteroides was found within buttock lesion as well. Infectious disease consulted and following. Nephrology was consulted to evaluate kidney function and fluid status. Recent decrease in Hb/acute anemia may be indicative of dilution. Chest tube was urgently placed 09/25 secondary to rapidly progressing hypoxemia due to enlarging effusion. Estimated 1-2L drained upon tube placement, fluid yellow/ clear in color. Chest tube output decreased to zero, remains in place while mechanically ventilated. Lesions developed on bilateral wrists that appear weeping and erythematous, likely secondary to irritation from restraint and ID bracelet placement. No concern for zoster. Fevers developed 09/29-09/30. New cultures obtained. Remained afebrile after abx switched from nafcillin to meropenem. Fevers noted intermittently 10/01-, ice packs and cooling measures instituted in addition to APAP IV. Intermittent fevers persist. Prognosis remains guarded at this time. Immediate concerns include patient's inability to be weaned off sedation and inability to arouse to stimuli. It is unclear the level of cognitive function that is present. Immediate plans include potential CT/MR brain with contrast 10/05 with anesthesia present to monitor medication administration; EEG completed 10/02, noted to have comatose waveforms. Echo LTD when avail. Palliative care has kindly consulted and will be crucial in navigating family understanding and expectations. Assessments - Acute hypoxemic respiratory failure; ongoing - Severe sepsis likely secondary to aspiration PNA, bacteremia, and disseminated zoster; under therapy - Suspected aspiration PNA vs zoster pneumonitis; under therapy - Disseminated zoster with meningoencephalitis; under therapy - Staph bacteremia - DANY; improving - Normocytic normochromic anemia, acute; stable - Hypertensive urgency - UTI secondary to Gisel - CLL on oral chemotherapy Plan: - Continue mechanical ventilation, decreasing PEEP x2 q8-12h as tolerated; assess daily for stability for SBT planning - Keep chest tube in place at this time; consider removal when extubated and stabilized - Decrease sedation as tolerated as day progresses - Consider Zyprexa 10mg ODT q12h prn for agitation/restlessness - Insulin gtt on standby to maintain BG < 180 - Replenish electrolytes prn - ABGs in am - Upright CXR in am - Abx/antivirals per ID - Neupogen per oncology; discontinued - Recommend to concentrate medications as much as possible, with D5W as fluid - Med rec requested to be completed; chart review reveals pt on chronic BP/HR medications; re-initiate cautiously; defer to primary team - Nephrology consulted; patient in need of fluid management and diuresis, appreciate time and recs; patient net +, but appears intravascularly depleted, which may be contributing to persistent tachycardia and episodes of hypotension - Palliative care consultation for family discussions and goals of care; pending MR results - Echo LTD vs REGINALD to evaluate valves; continue to treat per ID - MR brain with contrast 10/05; anesthesia requested to be present - Nutrition: Tube feeds at goal - DVT: SCDs - GI: H2B Thank you for this consult, we will happily follow along with you at this time. If you have any additional concerns or would like us to assist in any other way , please do not hesitate to ask. Total time: 60 minutes GI Prophylaxis: H2 germaine VTE Prophylaxis: Sub-Q Heparin (Unfractionated) VTE Mechanical Devices: Intermittant Pneumatic CD Resuscitation Status: CPR: Attempt Resuscitation Attending Statement I have seen and examined this patient with the resident physician. Vital signs , labs, imaging have been reviewed. I agree with the assessment and plan above. Please refer to my separately dictated progress note for any modifications to above. Maira Kenyon M.D. Pulmonary and Critical Care medicine Pager [phone] Alfreda Allred DO Oct 05, 2016 10:30 Maira Kenyon MD Oct 05, 2016 16:18
[2016-10-05] MEDS ORDERED: Furosemide 10 mg/mL 4 mL Inj IVPUSH ONE (12:15)
--- NOTE | 2016-10-05 13:05 | PCM.PNMED ---
Subjective Date of Service Oct 05, 2016 Subjective Nephrology Progress Note: Attending Dr. Ronny Villegas is a 76-year-old male with a past medical history significant for CLL currently on chemotherapy, COPD, recent visit to [facility] in [place], and hypertension who was a direct transfer to [facility] from [facility] due to septic shock secondary to presumed aspiration pneumonia now being treated for DANY, staphylococcus bacteremia, candiduria with suspected disseminated candidiasis and disseminated zoster. Hospital day #15. Overnight: There were no acute events. Telemetry overnight: Sinus rhythm, heart rate 90 to 100's, without ectopy. Subjective exam and review of systems in unavailable as patient is intubated and sedated. The patient remains in critical condition but off of norepinephrine. Remains febrile Tmax 38.1. Hgb was 6.3 and is receiving 2 U PRBC 's. Family is at the bedside. . Exam Vital Signs Vital Sign - Last Date Time Temp Pulse Resp B/P Pulse Ox O2 Delivery O2 Flow Rate FiO2 10/05/16 11:43 94 113/47 96 50 10/05/16 08:00 38.1 26 Mechanical Ventilator Intake and Output 10/04/16 10/04/16 10/05/16 Cumulative From/Thru 15:00 23:00 07:00 09/21/16 19:30 - 10/05/16 05:06 Intake Total 305 ml 3468 ml 3495 ml 41578 ml Output Total 1250 ml 1475 ml 62586 ml Balance 305 ml 2218 ml 2020 ml 31616 ml Intake Oral 60 ml IV Total 50 ml 1433 ml 1379 ml 34785 ml Tube Feeding 785 ml 963 ml 28589 ml Packed Cells 255 ml 255 ml Tube Irrigant 1250 ml 1153 ml 66321 ml Output Urine Total 1250 ml 1275 ml 41546 ml Stool Total 200 ml 1660 ml Gastric Drainage Total 1565 ml Chest Tube Drainage Total 0 ml 0 ml 390 ml # Bowel Movements 8 Exam General: Intubated and sedated. HEENT: Normocephalic, atraumatic. External ears without defect. Pupils equal, round, and reactive to light. Anicteric sclerae and injected conjunctivae. Endotracheal tube and OG tube in place. Neck: Supple. No jugular venous distension. No bruits. No lymphadenopathy or thyromegaly. Right IJ. Cardiovascular: Regular rate and rhythm with no murmurs, rubs, or gallops appreciated. Pulmonary: Scattered rhonchi throughout.Chest tube in place on right. Abdomen: Soft, nontender, moderate distension, decreased bowel sounds. Genitourinary: severe scrotal swelling, hearn cath in place with yellowish urine. Extremities: Moderate pitting edema to knees bilaterally. Skin: Crusted papules noted on left shoulder. . IVs and Medications Medications Reviewed: Medications were reviewed in detail Lab and Diagnostics Item Value Date Time Total Bilirubin 0.7 mg/dL 10/05/16 06 Direct Bilirubin 0.4 mg/dL H 10/05/16 06 Lactate Dehydrogenase 249 U/L H 10/05/16624 Result Diagram: 10/05/1662410/05/16624 Microbiology CSF positive for VZV. MRSA screen negative. Buttock culture positive for staphylococcus aureus resistant to tetracycline and bacteroides fragilis. Blood cultures 2:4 positive for staphylococcus aureus resistant to tetracycline. Sputum positive for staphylococcus aureus resistant to tetracycline. Clostridium difficile PCR negative. Fungal blood cultures x 2 pending. Urine grew yannick albicans. . X-Rays, CTs and MRIs X-RAY CHEST ONE VIEW, PORTABLE IMPRESSION: No change in multifocal pneumonia. Dictated by: Adalberto Barker M.D. on 10/04/2016 at 7:40 Approved by: Adalberto Barker M.D. on 10/04/2016 at 7:41 X-RAY CHEST ONE VIEW, PORTABLE IMPRESSION: Right thoracostomy tube. No pneumothorax or subcutaneous emphysema. Dictated by: Simona Johnson M.D. on 09/25/2016 at 18:52 Approved by: Simona Johnson M.D. on 09/25/2016 at 18:52 X-RAY CHEST ONE VIEW, PORTABLE IMPRESSION: 1. Support lines and tubes as above. 2. Bilateral pleural effusions, right greater than left. 3. Bilateral lower lung consolidation, increasing involving the right lung base and similar involving the left. Dictated by: Francisco Javier Antonio [facility] Interpreted: Merry Robison MD on 09/23/2016 at 9:45 Transcribed by: JIM on 09/23/2016 at 9:45 Approved by: Merry Robison MD, PhD on 09/23/2016 at 16:56 X-RAY CHEST ONE VIEW, PORTABLE IMPRESSION: 1. Support lines and tubes as above. 2. Abnormal opacity within the right lung and the lung bases consistent with pulmonary edema and/or diffuse bilateral inflammatory process. Recommend clinical correlation and followup. Dictated by: Francisco Javier BASSETT Interpreted: Jammie Drake MD on 09/22/2016 at 9: 13 . 12-lead ECG EKG: Normal sinus rhythm at 116 bpm, left axis deviation present, QTC 478, mild widening of QRS complex (104 ms). . Assessment & Plan Magdaleno Villegas is a 76-year-old male with a past medical history significant for CLL currently on chemotherapy, COPD, recent visit to [facility] in [place], and hypertension who was a direct transfer to [facility] from [facility] due to septic shock secondary to presumed aspiration pneumonia now being treated for DANY, staphylococcus bacteremia, candiduria with suspected disseminated candidiasis and disseminated zoster. Hospital day #15. Impression: 1. DANY on CKD due to nonoliguric ATN. 2. Hypervolemic hypernatremia. 3. Anasarca with low effective circulating volume. 4. Septic shock secondary to staphylococcus bacteremia. 5. Candiduria with suspected disseminated candidiasis. 6. Disseminated zoster. 7. History of CLL. Plan: - Patient is now of pressors. Patient has positive fluid balance and no longer appears intravascularly depleted. Given 40 mg IV Lasix once. Free water deficit based on idea body weight 1L. - Continue IV 25% albumin q 12 hr. . GI Prophylaxis: H2 germaine VTE Prophylaxis: Sub-Q Heparin (Unfractionated) VTE Mechanical Devices: Intermittant Pneumatic CD Resuscitation Status: CPR: Attempt Resuscitation Zoe Wise DO Oct 05, 2016 13:05 Zoe Wise DO Oct 05, 2016 13:05
[2016-10-05] MEDS: fentaNYL 2,500 mCg/250 mL 2,500 MCG in IV Premix 1 EACH IV PRN (13:35)
--- NOTE | 2016-10-05 16:43 | PCM.CONPAL ---
Date of Service Oct 05, 2016 Date of Hospital Admission: Sep 21, 2016 at 19:00 Date of Palliative Consult: Oct 05, 2016 Requesting Provider: Emma Brown MD Reason Palliative Care Consult: Goals of Care Discussion Reason for Consultation Possible Poor Prognosis Hospital Unit @time of consult: Critical Care Palliative Care Recommendation Summary of palliative recommendations: Palliative Plan: Today we had a discussion with patient's daughter in law Perlita and constance Yee. We were attempting to get some background information about the patient prior to this illness. We are currently awaiting results of an MRI in the hopes that this can direct our discussion with family tomorrow about the patient's prognosis. -Symptom management (Pain/other) - Patient is intubated and sedated - patient is new to the palliative service and patient is currently managed by the primary medical team, pulmonary and critical care team, ID, nephrology, oncology -DPOA/Advanced Directives/POLST - POLST completed with the patient and MD, prior to admission at [facility], on September 18, 2016 -Family/emotional support - 4 sons Duane, Bill, Piyush and Juan. Duane's is Perlita. Constance Yee Family Care Team Meeting: - held 10/05 the Palliative team with Dr. Trent and Dr. Pena had a discussion with patient's daughter in law ePrlita and constance Yee. Today the discussion started with asking Perlita and Nakia about background on Magdaleno's health. Perlita started out by stating the Magdaleno is totally independent walking without a cane or walker. He recently moved in June to [facility] from an apartment attached to Magdaleno's sons house. Magdaleno can take care of himself except for having meals cooked and his pills arranged for the week. Magdaleno will skip meds without direction, and has other bouts of mild forgetfulness. Magdaleno is [place] and actually is 78yo as the [place] government messed up his certificate. 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 Magdaleno was described as independent, and stubborn, with a dry sense of humor. When asked about what family knows of his current health status Perlita stated they know he "has shingles in his brain" and that his kidneys are getting better. The palliative team informed the family that Magdaleno also has a bacterial infection in his blood which was resistant to Meropenem and a yeast infection in his bladder and sputum. 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 Perlita stated that on Magdaleno's birthday Magdaleno was perfectly fine and the family went out to [employer] food. Nakia and Magdaleno were making plans to return to [place] in January. Next Perlita gave a timeline of the course of illness. Magdaleno was taken to [facility] by family when he became confused and struggled with his vision. At [facility] on 09/15 he was diagnosed with Shingles and discharged on the 09/16 reportedly without any medication including no pain medication prescriptions. On 09/17/2016 family took Magdaleno to [facility] in [facility] where the patient deteriorated and was eventually intubated and transferred to [facility] on 09/21. Next we went over a POLST that Magdaleno filled out while at [facility] [place] on . No changes were made to the POLST however it was discussed briefly and the family concurred that it is how Magdaleno would want to be treated moving forward. Patient is full code, allowing trial periods of tube feeding and antibiotics as necessary Perlita stated that Magdaleno was diagnosed with CLL in 1994 but did not want to worry family so he didn't tell anybody. Nakia says she didn't find out about his CLL until 2010. Perlita says that Magdaleno found out his CLL had converted to an aggressive form in 2014 however nobody in the family was told until this current hospitalization. Perlita states that she has been trying to convince Magdaleno to transfer to the [facility] Oncology department for years, however Magdaleno resisted and has been with Dr. Shahram Pearce at [facility] in [place]. Magdaleno has recently lost his brother to metastatic cancer and his half brother to pneumonia in the last few months and he lost his mother to old age at 105yo within the last 5 months. 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 Perlita stated that Magdaleno "doesn't want to ever be a vegetable." -Spiritual support - not discussed at this time Family Goals: 1. Family wants to be told the truth about his/her illness, even if it is unpleasant. 2. Family would like to be told prognosis when it can be predicted, to better guide treatment decisions. 3. Patient would not want to be bed bound and unable to care for himself Additional Medical Diagnoses with primary management by Hospitalist team include : VZV encephalitis staph bacteremia bacteroides skin infection yannick urinary tract infection and sinus infection Unknown gram positive bacteremia resistant to Meropenem CLL Problems: Goals of Care 1. Family wants to be told the truth about his/her illness, even if it is unpleasant. 2. Family would like to be told prognosis when it can be predicted, to better guide treatment decisions. 3. Patient would not want to be bed bound and unable to care for himself Disposition The patient is currently unstable enough that no disposition is possible today. Patient will likely be hospitalized for an extended period. Resuscitation Status Resuscitation Status: CPR: Attempt Resuscitation Limited Interventions: Cardioversion/Defibrillation, Intubation w Mech Vent, Medications and IV Fluid POLST Updates/Changes Previous POLST?: Yes POLST Last Review Date: Oct 05, 2016 Antibiotics: Determine Use or Limitations Artificially Admin Nutrition: Trial Period Tube Feeding POLST Discussed with: Spouse/Other (Daughter in Law Perlita and Niece Nakia) POLST Review Outcome: No Change . Advanced Care Planning Address: POLST Symptom management: Dyspnea Pt History History of Present Illness from the H&P of Shine Garcia D.O. "76-year-old male with CLL recently on chemotherapy, significant smoking history and likely COPD, recent visit to [facility] in [place], and ongoing hypertension directly transferred to [facility] from [facility] due to acute septic shock secondary to presumed aspiration pneumonia. Patient was not initially admitted [place] [facility] due to ongoing weakness, confusion, nosebleed , chest pain, and continuing shingles. The family checked in on the patient at [facility] where the patient was found to be less conversive, mildly confused, and had ongoing nosebleed. Family denies any recent fevers or chills, cough, or respiratory distress. Patient was treated at [facility] and was getting progressively better from a cognition standpoint before developing hypotension and acute respiratory distress early this morning at 0100. By 10 AM the patient was requiring BiPAP and was soon intubated thereafter. Hypotension seems to been refractory to fluid resuscitation, although there is some confusion over whether the patient only received 1 L normal saline, or if he received more. In any case, the patient was then placed on 3 pressors, norepinephrine, phenylephrine, and vasopressin. Once stabilized the patient was transferred to [facility] and arrived here around 1999. Recent visit to [facility] on 09/15/2016 was due to ongoing shingles, blurry vision, and acute worsening cognition/confusion. At that time the patient had a high blood pressure in the 180s or above and MRI CT were suggestive of ongoing progressive reversible encephalopathic syndrome. Patient was placed on acyclovir orally, and cream, and sent home with reassurance. By Wednesday the patient presented to [facility] for the reasons noted above. Patient has no sick contacts at assisted living. Initial sign out from [facility] is that the patient likely has aspiration pneumonia. On chest x-ray there is a progressive right lower lobe infiltrate, and increasing left pleural effusion with some suggestion of consolidation. Patient was started on Zosyn this morning at [facility], and again, we are unsure of the amount of fluid that the patient was given at this time. On arrival to [facility] , the patient was on 100% FiO2, 12 of PEEP, respiratory rate of 35, and tidal volumes of 600ml. Initial blood gas at [facility] showed the patient's pH to be 7.35, however initial blood gas here appears to show a pH of 7.1. Patient's arterial line soon became inaccessible and anesthesia was consulted without being able to reestablish that line; blood pressure cuff currently showing blood pressures above 130/80. Venous blood gases are ordered and pending. Patient was also transferred with a double lumen PICC line in the left arm, and an additional central line was placed by anesthesia in the right IJ. Pressors were reduced after patient was stabilized, including stopping phenylephrine and vasopressin, but leaving Levophed. Patient was initially fluid resuscitated with 1-2 L normal saline, with plans for additional bolus. Nimbex, fentanyl, propofol/ Versed were continued or started upon arrival. The Nimbex due to the patient fighting the vent and high peak pressures. Discussion was had with respiratory therapy about decreasing the tidal volume of the patient to 6 mL/kg and reducing RR after blood gas was obtained. Labs from the [facility] are currently in the chart with selective review here: White count 6.0, hemoglobin 11.8, hematocrit of 34.4, platelets of 164 Sodium 132, potassium 4.3, chloride 100, bicarbonate 21, BUN 40, creatinine is 2.4 to glucose is 121, calcium 7.8, lactic acid 1.4, last troponin was 0.02 on September 17 Influenza A and B rapid screens are negative" Hospital Course: 76yoM hospital day 14 with past medical history significant for CLL on oral chemotherapy transferred to [facility] from [facility] due to acute septic shock secondary to 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 The patient has been recently changed to Daptomycin to treat a gram positive cocci which is new and was not treated with the Meropenem. He is to get an MRI today given the patient's mentation does not seem to be improving, [facility] ID Dr. Ritter has stated that 1/3 of cases of VZV encephalitis causes irreversible damages to the patient's brain with the patient often completely debilitated. Palliative Plan: Today we had a discussion with patient's daughter in law Perlita and niece Nakia. We were attempting to get some background information about the patient prior to this illness. We are currently awaiting results of an MRI in the hopes that this can direct our discussion with family tomorrow about the patient's prognosis. Past Medical History Significant PMH Noted: CLL Hypertension Hypercholesterolemia GERD depression Cataracts Hyperopia Social History Occupation: retired Social Support: 4 sons Duane, Bill, Piyush and Juan. Duane's is Perlita. Living Situation: Moved to [facility] independent living in June ADLs ADL Patient Status: Baseline ADL Ambulation: Full ADL Dressing: Full ADL Feeding: Full ADL Hygene/bathing: Full ADL Transfers: Full Allergy Allergies Reviewed: Yes Medications Current Medications: Current Medications Albumin Human/ Premix 100 ml @ 1 mls/min Q12H IV Last administered on 10/04/16t 11:49; Admin Dose 1 MLS/MIN; Start 10/03/16 at 11:40; Stop 10/04/16 at 20:33; Status DC Insulin Glargine 5 unit 5 unit HS SUBQ Last administered on 10/04/16 21:08; Admin Dose 5 UNIT; Start 10/03/16 at 21:00 Sodium Chloride 250 ml @ 10 mls/hr Q24H IV Last administered on 10/05/16 10:06 ; Admin Dose 10 MLS/HR; Start 10/04/16 at 08:10 Albumin Human 100 ml @ 100 mls/hr Q12H IV Last administered on 10/04/16 23:48 ; Admin Dose 100 MLS/HR; Start 10/04/16 at 23:30 Daptomycin/Sodium Chloride 50 ml @ 100 mls/hr Q24 IV Last administered on 10:06; Admin Dose 100 MLS/HR; Start 10/05/16 at 08:30 Objective Findings Exam Vital Sign - Last Date Time Temp Pulse Resp B/P Pulse Ox O2 Delivery O2 Flow Rate FiO2 10/05/16 08:24 90 99/42 95 50 10/05/16 08:00 38.1 26 Mechanical Ventilator Intake and Output 10/04/16 10/04/16 10/05/16 Cumulative From/Thru 15:00 23:00 07:00 09/21/16 19:30 - 10/05/16 05:06 Intake Total 305 ml 3468 ml 3495 ml 43952 ml Output Total 1250 ml 1475 ml 28894 ml Balance 305 ml 2218 ml 2020 ml 88773 ml Intake Oral 60 ml IV Total 50 ml 1433 ml 1379 ml 23663 ml Tube Feeding 785 ml 963 ml 97014 ml Packed Cells 255 ml 255 ml Tube Irrigant 1250 ml 1153 ml 12264 ml Output Urine Total 1250 ml 1275 ml 96616 ml Stool Total 200 ml 1660 ml Gastric Drainage Total 1565 ml Chest Tube Drainage Total 0 ml 0 ml 390 ml # Bowel Movements 8 Objective General: Intubated and sedated; no acute distress; diffusely edematous, but improving; no responses to stimuli General: Chemically sedated HEENT: Scleral Anicteric, Mucous Membranes Dry, Other (conjunctival hemorrhage) Heart: No Murmurs/Rubs/Gallops, Tachycardia Lungs: Diminished, Crackles Abdomen: Bowel Tones x4, Soft Neuro: Other (sedated and intubated) Extremities: Pulses Palpable x4, Edema, Anasarca Skin: Significant Lesions (crusted on shoulders, abdomen, hips, arms) Lab/Diagnostics Lab and Imaging results reviewed in detail in EMR. Time spent Total time 75 minutes; >50% face to face with patient and/or family, providing counselling regarding plans and recommendations, and in care coordination with his/her medical teams. In additional, I spent 65 minutes in advanced care planning discussion with patient's family. Attending Statement I was physically present and immediately available to supervise resident physician in all parts of his interactions with pt and family today. I also discussed his recommendations and management plan with him and agree with all recommendations he has outlined in his note above. CHIQUITA PENA DO Oct 05, 2016 10:43 Kimmy Trent MD Oct 05, 2016 17:51
--- NOTE | 2016-10-05 17:17 | DRSVH ---
PROCEDURE: CT BRAIN WITHOUT CONTRAST ([id number]) INDICATIONS: unresponsive TECHNIQUE: Noncontrast 4.5 mm thick angled axial sections acquired from the foramen magnum to the vertex, with c oronal reformats. COMPARISON: [facility], CT, CT BRAIN WO CON, 09/22/2016, 19:42. FINDINGS: Image quality: Excellent. CSF spaces: Basal cisterns are patent. No extra-axial fluid collections. The ventricles are symmet paxton in size and shape. Brain: No intracranial bleeds or masses. There is cerebral volume loss for age, with resultant vent ricular and sulcal prominence. There are periventricular and deep white matter chronic small vessel ischemic changes. There is intracranial internal carotid artery atherosclerosis. Skull and face: Calvarium and visualized facial bones appear intact, without suspicious lesions. Sinuses: The mastoid air cells have significantly changed from the comparison study 09/22/16. They're now diffusely opacified where as before they had appeared almost completely normal. Within the sphe noid sinus there now is dense subtotal opacification, similar to that previously present. The ethmoi d air cells show a similar degree of subtotal opacification previously present. Frontal sinuses cont ain a small amount of fluid, maxillary sinuses contain equals thickening bilaterally, as was previous ly the case and perhaps slightly currently worsened.. IMPRESSION: Brain parenchyma shows no sign of definite new ischemic injury, no intracranial hemorrhag e found, no obstructive hydrocephalus is seen. Significant interval change in appearance of the mastoid air cells recently very clear and now almost completely opacified. Additional sinusitis elsewhere has only changed slightly compared to the prio r study from 09/22/16. Dictated by: Juliocesar Sanches M.D. on 10/05/2016 at 17:06 Approved by: Juliocesar Sanches M.D. on 10/05/2016 at 17:10
--- NOTE | 2016-10-05 18:01 | PROG NOTE ---
[address] [address] PROGRESS NOTE PATIENT: BRITTNEY CASILLAS : 1940 MR#: [id number] ADMIT: 09/21/2016 JOB ID: [id number] DATE: 10/05/2016 PULMONARY CRITICAL CARE PROGRESS NOTE The patient is a 76-year-old man with CLL admitted with septic shock, varicella zoster, meningoencephalitis, MSSA bacteremia, and respiratory failure. The patient was seen and evaluated with resident physician, Senia Steve. Please refer to her separate detailed note for additional information. The following is an addendum. INTERVAL HISTORY: No major overnight events. The patient is going to get an MRI today. He had a low-grade temp to 38.1. No other events. REVIEW OF SYSTEMS: Unable to obtain. PHYSICAL EXAMINATION: Vital signs reviewed. T-max of 38.1, pulse 92, respirations 26, BP 121/45, sats 96% on 50% FiO2. General: Intubated, unresponsive on sedation. Skin: Multiple lesions on the right side of the face, healing shingles, diffuse anasarca. LABORATORIES: WBC 7.4, hemoglobin down to 6.3 from 7.4, platelets 111. Chemistry reviewed. Creatinine is down 1.3 from a peak of 2.8 on day of admission. Electrolytes notable for sodium of 148, procalcitonin down to 0.5 from a peak of 30 earlier. Blood cultures on day of admission positive for Staph aureus, i.e. MSSA. CSF PCR for varicella zoster positive on September 23. Sputum culture positive for Staph aureus on September 28. Urine culture positive for Gisel albicans on September 30 and October 03. A blood culture on October 03 is positive for gram-positive cocci. It is not clear if this is coag-negative Staph or Staph aureus. Chest x-ray reviewed and shows left greater than right basilar infiltrate. There is a right-sided chest tube in place with no air leak, no output and no respiratory variation. Arterial blood gas from this morning shows pH of 7.37, pCO2 of 51, pO2 of 39, bicarbonate of 29. ASSESSMENT AND RECOMMENDATIONS: 1. Septic shock. 2. Varicella zoster meningoencephalitis. 3. Methicillin-sensitive Staphylococcus aureus bacteremia September 21, 2016. 4. Suspected candidemia-on therapy. 5. Acute hypoxic respiratory failure. 6. Acute kidney injury-improving. 7. Acute encephalopathy. This 76-year-old man presented with shingles as well as PCR confirmed varicella zoster, meningoencephalitis with Methicillin-sensitive Staphylococcus aureus bacteremia. He has completed two weeks of acyclovir and this will be stopped tomorrow per ID. He was also on meropenem which will be stopped tomorrow. Daptomycin was restarted recently because of a positive blood culture on October 03 with gram-positive cocci-although it is unclear if this is Staph aureus versus coag-negative Staph, which is most likely a contaminant. Echocardiogram was done but was a poor quality study and unable to rule out vegetations on the valves so the study will be repeated today per ID's request. He has been on and off low-dose vasopressors and currently off, but he was on some of this yesterday. He is sedated with propofol, fentanyl and Precedex. He has an MRI of the brain schedule today for which Anesthesia will need to be present because of issues with inability to take pumps into the room and this patient on pressors, etc. EEG showed nonspecific changes and no evidence of seizures on Wednesday. Once the MRI is done, plan will be to wean off all sedatives and see if he starts to awaken. He has plenty of reasons for encephalopathy including multiple sedative drugs, meningoencephalitis and renal failure which is making drug clearance slower. Will try diuresing him again with IV Lasix and see how he tolerates. He is getting a lot of free water through the gut for his hypernatremia. Would try and avoid D5 because his blood sugars have been somewhat poorly controlled. He is on appropriate DVT and GI prophylaxis. He is a FULL CODE. CRITICAL CARE TIME: 60 minutes. [facility]
--- NOTE | 2016-10-05 18:24 | NUR ---
Remains on vent support. Propofol stopped, Fentanyl decreased to 50mcg/hr this evening per MD. BP, HR, RR elevated. Brain CT done/results pending. Eyes are open, not responding; has not moved extremities. TFs at goal, small residuals. Continuous liquid brown stool via FMS. UOP 1650ml/12hrs via hearn cath. He is not restrained. Supportive family at bedside.
--- NOTE | 2016-10-05 18:26 | PCM.PNMED ---
Subjective Date of Service Oct 05, 2016 Amy Villegas is a 76-year-old male with CLL currently on chemotherapy with past medical history significant for likely COPD, recent visit to [facility] in [place], and ongoing hypertension directly transferred to [facility] from [facility] due to acute septic shock secondary to presumed aspiration pneumonia. Hospital day 15. Overnight: Ongoing fevers. No acute events. Today: Patient remains intubated and sedated. Patient with no response to physical stimulation. Norepinephrine titrated off. Received 2 units PR[address] this morning. CT head pending this afternoon. Fentanyl and versed gtt for sedation. Tube feeds at goal and free water flushes increased with minimal residuals. ROS is not obtainable. Exam Vital Signs Vital Sign - Last Date Time Temp Pulse Resp B/P Pulse Ox O2 Delivery O2 Flow Rate FiO2 10/05/16 04:30 Ventilator 10/05/16 04:30 36.9 91 26 132/52 97 50 Intake and Output 10/04/16 10/04/16 10/05/16 Cumulative From/Thru 15:00 23:00 07:00 09/21/16 19:30 - 10/05/16 05:06 Intake Total 305 ml 3468 ml 3495 ml 71671 ml Output Total 1250 ml 1475 ml 86692 ml Balance 305 ml 2218 ml 2020 ml 61566 ml Intake Oral 60 ml IV Total 50 ml 1433 ml 1379 ml 30163 ml Tube Feeding 785 ml 963 ml 32619 ml Packed Cells 255 ml 255 ml Tube Irrigant 1250 ml 1153 ml 84851 ml Output Urine Total 1250 ml 1275 ml 99938 ml Stool Total 200 ml 1660 ml Gastric Drainage Total 1565 ml Chest Tube Drainage Total 0 ml 0 ml 390 ml # Bowel Movements 8 Exam Gen: Intubated and sedated, anasarca HEENT: PERRLA, corneal edema, large neck, R IJ in place. Cardio: Regular rate and rhythm, no murmurs noted. Respiratory: Faint crackles in bilateral bases. Mechanically ventilated. Right chest tube in place. Abdomen: Soft, distended, normal bowel sounds. : Prado and FMS in place. Scrotal edema. Skin: Shingles on the left shoulder anteriorly and superiorly currently crusted. Extremities: Lower extremity edema and anasarca. Neurologic: Patient sedated. Psych: Patient sedated. Lab and Diagnostics Result Diagram: 10/04/16 1410 10/04/16 1410 Microbiology CSF positive for VZV MRSA negative Buttock culture positive for staphylococcus aureus Blood cultures 2 out of 4 positive for gram positive cocci Sputum positive for staphylococcus aureus Clostridium difficile negative X-Rays, CTs and MRIs X-RAY CHEST ONE VIEW, PORTABLE IMPRESSION: Right thoracostomy tube. No pneumothorax or subcutaneous emphysema. Dictated by: Simona Johnson M.D. on 09/25/2016 at 18:52 Approved by: Simona Johnson M.D. on 09/25/2016 at 18:52 X-RAY CHEST ONE VIEW, PORTABLE IMPRESSION: 1. Support lines and tubes as above. 2. Bilateral pleural effusions, right greater than left. 3. Bilateral lower lung consolidation, increasing involving the right lung base and similar involving the left. Dictated by: Francisco Javier BASSETT Interpreted: Merry Robison MD on 09/23/2016 at 9:45 Transcribed by: JIM on 09/23/2016 at 9:45 Approved by: Merry Robison MD, PhD on 09/23/2016 at 16:56 X-RAY CHEST ONE VIEW, PORTABLE IMPRESSION: 1. Support lines and tubes as above. 2. Abnormal opacity within the right lung and the lung bases consistent with pulmonary edema and/or diffuse bilateral inflammatory process. Recommend clinical correlation and followup. Dictated by: Francisco Javier BASSETT Interpreted: Jammie Drake MD on 09/22/2016 at 9: 13 X-RAY CHEST ONE VIEW, PORTABLE IMPRESSION: Improved aeration of the right lung and decreased pleural effusion when compared with the prior study. Dictated by: Simona Johnson M.D. on 09/27/2016 at 8:30 12-lead ECG Normal sinus rhythm at 116 bpm, left axis deviation present, QTC 478, mild widening of QRS complex (104 ms) Additional Diagnostics EEG IMPRESSION: This electroencephalogram performed in the comatose state is abnormal. The slow background activity is suggestive of moderate cerebral cortical dysfunction/encephalopathy. This is a nonspecific finding and may be seen in a wide variety of different clinical conditions, including secondary to medication effect, as well as medical conditions such as toxic metabolic, hypoxic, inflammatory, autoimmune and infectious states. If clinically indicated, a repeat study performed off all fall sedative agents may be helpful. The propofol was held before this electroencephalogram was performed. Clinical correlation is advised. Struck,Peter J MD 10/04/16 5461 Assessment & Plan Magdaleno Villegas is a 76-year-old male with CLL currently on chemotherapy with past medical history significant for likely COPD, recent visit to [facility] in [place], and ongoing hypertension directly transferred to [facility] from [facility] due to acute septic shock secondary to presumed aspiration pneumonia. Hospital day 15. 1. Severe sepsis with shock, present on admission. Active. - Etiology multifactorial including disseminated zoster, staph bacteremia, and decubitus ulcer on left ischial tuberosity. - At [facility] patient became hypotensive and unresponsive to fluids and was started on three pressors and transferred to [facility]. - On admission here patient tachycardic, pro-calcitonin 21.82, lactic acid of 4.8 (lactic acid at [facility] was 1.4). - Norepinephrine titrated off on 09/28. Restarted 10/02. Titrated off again on . - Blood cultures and lumbar puncture as below. - Dr. Ritter consulted, appreciate the expertise. 2. Staphylococcus bacteremia, present on admission active. - Blood cultures 2 out of 4 positive. - Repeat blood cultures drawn with no growth on 09/27. - Nafcillin continuos infusion from 09/24-09/30. - Meropenem started 09/30. - Daptomycin started 10/05. - Dr. Ritter consulted, appreciate time and expertise. 3. Disseminated zoster, present on admission, active. - Encephalitis, hepatitis, and pneumonitis secondary to disseminated zoster - Evidence of multiple lesions in multiple dermatomes. Currently crusted. - Continue on IV acyclovir, dose adjusted for renal failure by Dr. Ritter - Lumbar puncture with high opening pressure. CSF clear, WBC 19, RBC 2, Mononuclear WBCs 100, Polynuclear WBCs 0, Glucose 75, Protein 58. - Continues to be unresponsive to stimuli. - EEG completed 10/02. Results as above. - CT head planned for today. - Dr. Ritter consulted, appreciate the expertise. 4. Acute hypoxic respiratory failure, present on admission, active. - Patient presented with severe hypoxia and was requiring 100% FiO2, 12 of PEEP , respiratory rate of 35, and tidal volumes were initially 600 mL but was quickly taken down to 470 mL. - Chest tube placed 09/25 due to hypoxemia secondary to large pleural effusion. - Patient also has suspected underlying COPD which will complicate his pulmonary course. - Ventilator management per ICU team, appreciate the expertise 5. Lactic acidosis, present on admission, active. - Etiology is likely infectious but patient's CLL likely a contributing factor. - Lactic acid 4.8 on admission. - Will continue to monitor. 6. Acute kidney injury, present on admission, improving. - Patient presented to [facility] with a creatinine of 0.8, however over the subsequent days prior to his transfer here he was having a slow increase in his creatinine up to 1.6 and after pressure support his creatinine on arrival here was 2.21. - This acute kidney injury is likely due to hypoperfusion/prerenal secondary to dehydration and excessive pressure support with 2 peripheral vasoconstrictors and Levophed. Likely has a degree of ATN. - Lasix 40mg IV Q12H held due to hemodynamic instability. - Continues to have good urine output. - Continue to monitor I and O and daily BMP - No indication for dialysis at this time - Nephrology consulted. Appreciate time and expertise. 7. Hypernatremia, not present on admission, active. - Free water flushes increased to 300 ml Q4H. - D5W 60 ml/hr. - Meds to be mixed in d5w. - Continue to monitor with BMP. 8. Chronic lymphocytic leukemia, present on admission, undergoing oral chemotherapy prior to hospitalization. - No records available thus far but patient appears to be on current chemotherapy per family. - Neupogen given per Dr. Benavides's recommendations. - Heme/Onc consulted. Appreciate time and expertise. 9. Elevated liver enzymes, present on admission, improving. - Etiology likely multifactorial including disseminated zoster and shock liver. - Liver enzymes trending down. 10. Acute encephalopathy, present on admission, active. - Patient has a recent history of acute confusion with hospital admission and resolution of confusion during those stays. 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 - Sedation titrated down but continues on fentanyl and versed. - CT head showed no acute intracranial process. Repeat pending today. - Lumbar puncture with high opening pressure. CSF clear, WBC 19, RBC 2, Mononuclear WBCs 100, Polynuclear WBCs 0, Glucose 75, Protein 58. 11. Decubitus ulcer, present on admission, active. - Wound culture grew bacteroides fragillis. - Metronidazole 1000 mg Q12H. - Wound care consulted. 12. 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 - Micafungin 150 mg Q24H. Disposition: Patient remains critically ill and in the CCU. Patient not tolerating decreased sedation. Plan to proceed with MRI on 10/05 to evaluate brain more thoroughly. Overall his prognosis is guarded as he has no improvement in mental status with reduction of sedation. CT head results pending. GI Prophylaxis: H2 germaine VTE Prophylaxis: Sub-Q Heparin (Unfractionated) VTE Mechanical Devices: Intermittant Pneumatic CD Resuscitation Status: CPR: Attempt Resuscitation Attending Statement patient seen and examined with Dr Lama, I agree with the history,exam, impression and plan as outlined above MATTHEW LAMA DO Oct 05, 2016 06:32 Arvind Stockton MD Oct 05, 2016 18:54
--- NOTE | 2016-10-05 18:35 | NUR ---
MD updated with vital sign changes with decreased sedation.
[2016-10-05] MEDS ORDERED: Insulin GLARgine 100 Unit/mL Syringe SUBQ SCH (21:00)
[2016-10-06] VITALS (12 sets, daily range): BP systolic 106–208; BP diastolic 51–118; PULSE 87–105; RESP 25–27; O2SAT 95–99
[2016-10-06] MEDS: Albumin 25% 100 ML IV SCH ×3 (00:06→23:15)
[2016-10-06] MEDS: Chlorhexidine 0.12% 15 mL Oral Solution MT SCH ×6 (00:06→21:34)
--- NOTE | 2016-10-06 01:52 | NUR ---
P) Respiratory Lungs with coarse breath sounds, louder on L than R in bases, still producing opaque, yellow phlegm on suctioning ET tube. Will open eyes spontaneously but does not appear to track or follow any commands for me, pupils more reactive than a few days ago. I) Meds per 's orders and continuous rotation, as well as turning q2h and floating heals. E) Currently resting quietly with eyes closed, grimaces during turns but settles soon after. Family here and updated on pt.'s condition as well as I was able. They would like EEG results. They will try to contact tomorrow during the day.
[2016-10-06] MEDS: Dexmedetomidine 400 mCg/100 mL 400 MCG in IV Premix 1 EACH IV SCH (04:20)
[2016-10-06] MEDS: Propofol Inj 1,000,000 MCG in IV Premix 1 EACH IV SCH ×5 (04:23→21:15)
[2016-10-06] MEDS: Insulin Human REGular 300 Unit/3 mL Inj SUBQ SCH ×4 (04:24→21:41)
[2016-10-06] MEDS: Norepinephrine 8,000 mCg/250 mL D5W Premix IV SCH (04:24)
[2016-10-06 04:30] LABS: BASOPHILS % (AUTO) 0.3 % (0-3); EOSINOPHILS % (AUTO) 2.5 % (0-5); MONOCYTES % (AUTO) 14.7 % (4-12); Mean Corpuscular Hemoglobin 28.8 pg (27.0-35.0); Mean Corpuscular Volume 91.4 fL (81-100); NEUTROPHILS % (AUTO) 51.9 % (40-74); Platelet Count 102 bil/L (150-400)
--- NOTE | 2016-10-06 04:37 | ABG ---
DateTimeAnalyzed 04:31:00 -_ pH ____7.378 - pCO2 ___50.4__ -mmHg pO2 ___37.0__ -mmHg HCO3- ___29.0__ -mmol/L ABE ____3.9__ -mmol/L tHb ____7.6__ -g/dL O2Hb ___68.8__ -% COHb ____1.7__ -% MetHb ____1.0__ -% sO2 ___70.7__ -% FIO2 ___50.0__ -% PRVC 24 - PEEP ___12.0__ -cmH2O Vt __480.0__ -L Drawn By rn - Spontaneous_RR ___29.0__ -b/min Oxygen Device 1 VENTILATOR - B 763 -mmHg tO2 ____7.4__ -Vol% Jeevan test N/A -
[2016-10-06 05:12] LABS: Magnesium 1.9 mg/dL (1.6-2.6); Phosphorus 4.7 mg/dL (2.5-4.9)
[2016-10-06] MEDS ORDERED: Potassium Chloride 20 mEq/15 mL Oral Soln(K 3 - 3.7 & Creat < 2) TUBE ONE (06:20)
[2016-10-06] MEDS: Senna Leaf Extract 528 mg/15 mL Syrup PO SCH ×2 (07:28→21:34)
[2016-10-06] MEDS: LacriLube S.O.P. 3.5 Gm Ophthalmic Ointment BOTH_EYES SCH ×2 (07:28→21:34)
[2016-10-06] MEDS: Famotidine Inj 20 MG in IV Premix 1 EACH IV SCH (07:29)
[2016-10-06] MEDS: Micafungin Inj 150 MG in 0.9% Sodium Chloride 100 ML IV SCH (07:29)
[2016-10-06] MEDS: Heparin 5,000 Unit/mL Inj SUBQ SCH ×2 (07:30→21:40)
[2016-10-06] MEDS ORDERED: Micafungin Inj 150 MG in Dextrose 5% 100 ML IV SCH (08:30)
--- NOTE | 2016-10-06 09:07 | PROG NOTE ---
[address] [address] PROGRESS NOTE PATIENT: BRITTNEY CASILLAS : 1940 MR#: [id number] ADMIT: 09/21/2016 JOB ID: [id number] DATE: 10/06/2016 INFECTIOUS DISEASE FOLLOWUP NOTE: REASON FOR FOLLOWUP: Disseminated varicella zoster virus with encephalitis, MSSA bacteremia, coag-negative staph bacteremia, renal failure and ventilatory-dependent respiratory failure. INTERVAL HISTORY: Overnight, the patient has been relatively stable, though he has continued to have low-grade fevers. He has remained off vasopressor agents and his ventilatory status is relatively stable. Efforts were made yesterday to obtain an MRI scan on the patient's brain but these were ultimately unsuccessful and instead, we have a new CT scan. This case was discussed with the patient's family or gathering for a family meeting. We discussed in great detail the multiple infections and our various treatments for them, as well as some comments about the prognosis of VZV encephalitis. PHYSICAL EXAMINATION: Reveals a gentleman who is currently afebrile, temperature 37.6 axillary, but he has been febrile to 38.1 during the night. His current pulse is 90, respiratory rate 27, blood pressure 143/57. He is saturating reasonably well on 50 of FiO2 and 12 of PEEP. Examination of the skin reveals that all his VZV lesions have crusted. On his wrist, though, there is still some erythema, which seems to conform to the area where restraints are applied. He also has generalized erythema on his buttocks and flanks. The eyes are much improved, as there is gradually less and less conjunctival hemorrhage. The oral endotracheal tube and orogastric tube in good position. Lungs with a few crackles at the bases but relatively clear. Cardiac tones currently regular rate and rhythm. The patient's abdomen is slightly distended, but soft and without organomegaly. Prado catheter is present. There is edema of the extremities of 2+ all the way up to the waist basically. His enlarged scrotum persists without change. LABORATORIES: Include a white count which is normal at 6900, hematocrit 24, platelets 102. Creatinine 1.4, which is stable over several days now. LFT basically normal. LDH slightly up to 49. Urinalysis without white cells. Repeat Fungitell pending. Micro, going back to the we have positive urine x2 on the and for Gisel albicans. On the we have negative blood cultures. On the 2/4 bottles grew coag-negative staph, and these are both from the same set. Of great interest, these bottles are unlabeled in the Lab, so we are unable to tell whether they came from the central line or from the skin. Sputum done on the has many polys with mixed george and repeat blood cultures on the are pending. IMAGING: Includes a CT scan done yesterday in lieu of the MRI. The brain parenchyma is without new injury. There are some mastoid air cells, which are opacified bilaterally and some sinusitis. Chest x-ray was last done two days ago and just showed multifocal infiltrates. IMPRESSION: This continues to be an incredibly complex case. The patient has disseminated varicella zoster virus has now received a full 14 days of therapy. Review of the literature was done yesterday evening which took me about 45 minutes. As result of that I found a variety of articles advocating 7, 10, 14, or even 21 days of therapy. The consensus though, which is found in the IDSA guidelines, as well as in other articles, is that 7-14 days is adequate, and we have now completed a total of two weeks. At this point, I think it is time to stop the acyclovir and observe, as acyclovir in and of itself can cause mental status changes in those with renal insufficiency. The patient's methicillin-sensitive Staphylococcus aureus bacteremia was present on admission and raises the question of endocarditis. Two transthoracic echocardiograms have been very poor quality. So far, we have been unable to see the valves raising the possibility of an underlying endocarditis. We will either need to treat this patient for six weeks with [id number] Staphylococcus aureus agent or get a transesophageal echocardiography which exonerates his valves. The patient may have disseminated Gisel albicans based on the urine and sputum which have grown Gisel albicans on numerous occasions. We are currently treating with micafungin with the plan probably to treat for two weeks. The coag-negative staphylococcus in 2/4 blood cultures from the is of unclear significance. These cultures were done because of recrudescent fevers. If these cultures were known to be through the central line, it would be strongly implicated and I would consider pulling it out and replacing it but we are actually uncertain as to the site from which this was drawn. So, right now we are waiting on the followup blood cultures, which were drawn through the line and skin and properly labeled yesterday. RECOMMENDATIONS: 1. We await the repeat blood cultures. 2. Will continue with daptomycin as our main drug for MSSA, as well as the coag-negative staph over the next few days. 3. Both the meropenem and acyclovir will be discontinued this morning. 4. Will continue the micafungin with the probable course of two weeks though possibly switching to fluconazole during that time. 5. I discussed in great detail with the family that the next major step in his care, from my point of view, would be to stop his meropenem and acyclovir, lighten his sedation and see how much he wakes up. At some point we will also need to attempt an MRI scan.
[2016-10-06] MEDS ORDERED: Sodium Chloride LOK Flush 10 mL Syringe IVFLUSH PRN ×2 (09:10)
[2016-10-06] MEDS ORDERED: Furosemide 10 mg/mL 4 mL Inj IVPUSH ONE (09:40)
[2016-10-06] MEDS: DAPTOmycin Inj 750 MG in 0.9% Sodium Chloride 50 ML IV SCH (09:42)
[2016-10-06] MEDS ORDERED: Furosemide 10 mg/mL 4 mL Inj ONE (09:50)
--- NOTE | 2016-10-06 09:51 | DRSVH ---
PROCEDURE: X-RAY CHEST ONE VIEW, PORTABLE ([id number]) INDICATIONS: intubated TECHNIQUE: One view of the chest was acquired. COMPARISON: [facility], CR, XR CHEST 1VW (PORTABLE), 10/04/2016, 4:44. FINDINGS: Surgical changes and devices: Stable position the ETT, nasogastric tube, right IJ CVL and right pleur al drain as well as a left PICC. Lungs and pleura: Interstitium is prominent similar to prior examination and multifocal bilateral air space opacities redemonstrated. Small pleural effusions. No pneumothorax. Mediastinum: Mediastinal contours appear normal. Heart size is normal. Bones and chest wall: No suspicious bony lesions. Overlying soft tissues appear unremarkable. IMPRESSION: 1. Stable support lines and tubes. 2. Pulmonary edema and/or multifocal pneumonia not significantly changed. Dictated by: Francisco Javier BASSETT Interpreted: Yosef Mcdonald MD on 10/06/2016 at 9:49 Transcribed by: MARLEN on 10/06/2016 at 9:51 Approved by: Bryan Mcdonald M.D. on 10/06/2016 at 14:15
[2016-10-06] MEDS: Furosemide Inj 100 MG in 0.9% Sodium Chloride 90 ML IV SCH (10:06)
--- NOTE | 2016-10-06 10:13 | PCM.PNMED ---
Subjective Date of Service Oct 06, 2016 Subjective PULMONARY/CRITICAL CARE PROGRESS NOTE Overnight: Sedation was attempted to be decreased. HR and BP became elevated. Patient was placed back on sedatives for the remainder of the night, with normalization of BP and HR. Stabilized. Today: No acute distress noted. Unable to open eyes/follow commands/respond to stimuli. Fentanyl decreased to 25, propofol 25, precedex 0.5, no pressors required. Labs: Hb Hct 7.4/23.5, Na 148, K 3.6, Cr 1.40 Info: Net IO + [address]55; 24hUOP 2850mL; 24hIO +3969 Vent: PRVC FiO2 50, PEEP 12, R 24, Vt 480; Chest tube remains in place with nil output Exam Vital Signs Vital Sign - Last Date Time Temp Pulse Resp B/P Pulse Ox O2 Delivery O2 Flow Rate FiO2 10/06/16 07:58 90 143/57 96 50 10/06/16 07:37 37.6 27 Mechanical Ventilator Intake and Output 10/05/16 10/05/16 10/06/16 Cumulative From/Thru 15:00 23:00 07:00 09/21/16 19:30 - 10/06/16 06:45 Intake Total 720 ml 3189 ml 3262 ml 57367 ml Output Total 1960 ml 1900 ml 27441 ml Balance 720 ml 1229 ml 1362 ml 68269 ml Intake Oral 60 ml IV Total 50 ml 1089 ml 936 ml 55128 ml Tube Feeding 900 ml 999 ml 53423 ml Packed Cells 670 ml 925 ml Tube Irrigant 1200 ml 1327 ml 44293 ml Output Urine Total 1650 ml 1500 ml 54523 ml Stool Total 200 ml 400 ml 2260 ml Gastric Drainage Total 110 ml 1675 ml Chest Tube Drainage Total 0 ml 390 ml # Bowel Movements 8 Exam General: Intubated and sedated; no acute distress; diffusely edematous; no responses to stimuli HENT: ETT in place, mucus membranes dry; bilateral corneal edema and conjunctival hemorrhage present Neck: Soft, obese, trachea midline by palpation; edematous; RIJ in place Cardiac: Tachycardic; no murmurs appreciated Respiratory: Sounds faint secondary to habitus, R > L diminished sounds; faint crackles at bases bilaterally; no wheeze appreciated Abdomen: Soft, nontender, nondistended; obese; Moderate pitting anasarca present Extremities: BLLE moderate pitting edema from ankles to abdomen; BLUE moderate pitting edema noted distal extremities to trunk Lines: R IJ; Left PICC; bandages dry, intact : Prado in place; urine yellow; moderate-severe scrotal edema present Skin: Multiple scabbed, healed lesions noted over lower abdomen and groin; no active bleeding or exudate noted. Additional scabbed lesions noted diffusely over left shoulder anteriorly without active bleeding or exudate, continue to appear dry and healing; lesions of bilateral wrists erythematous and weeping, no active bleeding; irregular erythematous papular rash noted along anterior region of bilateral hip without bleeding or exudate Neuro: Unable to fully assess secondary to intubation and sedation; not arousable to voice or sternal rub Psych: Unable to assess at this time secondary to intubation and sedation Lab and Diagnostics Result Diagram: 10/06/1641410/06/16414 Microbiology CSF positive for VZV MRSA negative Buttock culture positive for staphylococcus aureus Blood cultures 2 out of 4 positive for gram positive cocci Sputum positive for staphylococcus aureus Clostridium difficile negative X-Rays, CTs and MRIs X-RAY CHEST ONE VIEW, PORTABLE IMPRESSION: Right thoracostomy tube. No pneumothorax or subcutaneous emphysema. Dictated by: Simona Johnson M.D. on 09/25/2016 at 18:52 Approved by: Simona Johnson M.D. on 09/25/2016 at 18:52 X-RAY CHEST ONE VIEW, PORTABLE IMPRESSION: 1. Support lines and tubes as above. 2. Bilateral pleural effusions, right greater than left. 3. Bilateral lower lung consolidation, increasing involving the right lung base and similar involving the left. Dictated by: Francisco Javier BASSETT Interpreted: Merry Robison MD on 09/23/2016 at 9:45 Transcribed by: JIM on 09/23/2016 at 9:45 Approved by: Merry Robison MD, PhD on 09/23/2016 at 16:56 X-RAY CHEST ONE VIEW, PORTABLE IMPRESSION: 1. Support lines and tubes as above. 2. Abnormal opacity within the right lung and the lung bases consistent with pulmonary edema and/or diffuse bilateral inflammatory process. Recommend clinical correlation and followup. Dictated by: Francisco Javier BASSETT Interpreted: Jammie Drake MD on 09/22/2016 at 9: 13 X-RAY CHEST ONE VIEW, PORTABLE IMPRESSION: Improved aeration of the right lung and decreased pleural effusion when compared with the prior study. Dictated by: Simona Johnson M.D. on 09/27/2016 at 8:30 12-lead ECG Normal sinus rhythm at 116 bpm, left axis deviation present, QTC 478, mild widening of QRS complex (104 ms) Additional Diagnostics EEG IMPRESSION: This electroencephalogram performed in the comatose state is abnormal. The slow background activity is suggestive of moderate cerebral cortical dysfunction/encephalopathy. This is a nonspecific finding and may be seen in a wide variety of different clinical conditions, including secondary to medication effect, as well as medical conditions such as toxic metabolic, hypoxic, inflammatory, autoimmune and infectious states. If clinically indicated, a repeat study performed off all fall sedative agents may be helpful. The propofol was held before this electroencephalogram was performed. Clinical correlation is advised. Seamus Cee MD 10/04/16 9814 Assessment & Plan PULMONARY/CRITICAL CARE CONSULT NOTE - Hospital day 15 - Ventilator day 15 Mr. Villegas was emergently transferred from [facility] with severe sepsis likely secondary to aspiration PNA. He required intubation and sedation, fluid resuscitation, use of pressor agents, and paralytics. He was stabilized in the CCU, with pressor weaning, and continued ventilatory support. Infectious disease has been consulted to evaluate the source of infection, including the disseminated VZV. Chart review reveals multiple recent hospitalizations at [facility] and [facility] within recent days prior to this admission for reported AMS. Imaging was performed at these facilities, and requests were placed to push images to our system and to obtain records. He currently remains stable in the CCU intubated and sedated receiving fluids, pressors, and antibiotics. Repeat CT 09/22 did not reveal any acute pathologies. Echo completed 09/22, was a difficult study, but LV was grossly unremarkable with function, and RV was mildly dilated, but unremarkable in function. Valves were not well visualized. CSF PCR confirmed the presence of zoster. S. aureus has been detected in sputum , blood, and buttock lesion, indicating a staph bacteremia; Bacteroides was found within buttock lesion as well. Infectious disease consulted and following. Nephrology was consulted to evaluate kidney function and fluid status. Recent decrease in Hb/acute anemia may be indicative of dilution, significant decreases have resulted in pRBC transfusions. Chest tube was urgently placed 09/25 secondary to rapidly progressing hypoxemia due to enlarging effusion. Estimated 1-2L drained upon tube placement, fluid yellow/ clear in color. Chest tube output decreased to zero, remains in place while mechanically ventilated. Lesions developed on bilateral wrists that appear weeping and erythematous, likely secondary to irritation from restraint and ID bracelet placement. No concern for zoster. Fevers developed 09/29-09/30, and continue intermittently. New cultures obtained. Briefly remained afebrile after abx switched from nafcillin to meropenem, but fevers returned. Ice packs and cooling measures instituted in addition to APAP IV. Prognosis remains guarded at this time. Immediate concerns include patient's inability to be weaned off sedation and inability to arouse to stimuli. It is unclear the level of cognitive function that is present. EEG completed 10/02, noted to have comatose waveforms. Echo LTD was not able to well visualize the valves. MR brain was unable to be completed due to question of the exact compatibility of the portable ventilator with the MRI machine and ability to maintain medication pushes throughout the procedure. CT brain wo contrast was completed in lieu, no obvious sign of ischemic injury or hemorrhage noted. Palliative care has kindly consulted and will be crucial in navigating family understanding and expectations. Topic of tracheostomy was breached, and family goals at this time are to aggressively decrease sedation and assess mentation later this week. Assessments - Acute hypoxemic respiratory failure; ongoing - Severe sepsis likely secondary to aspiration PNA, bacteremia, and disseminated zoster; therapy completed - Suspected aspiration PNA vs zoster pneumonitis; therapy completed - Disseminated zoster with meningoencephalitis; therapy completed - Staph bacteremia; under therapy - DANY; improving - Normocytic normochromic anemia, acute; stable; s/p total 3U pRBC - Hypertensive urgency - UTI secondary to Gisel - CLL on oral chemotherapy Plan: - Continue mechanical ventilation, decreasing PEEP x2 q8-12h as tolerated; assess daily for stability for SBT planning - Keep chest tube in place at this time; consider removal when extubated and stabilized - Decrease sedation as tolerated as day progresses; goal to have all sedation off - Consider Zyprexa 10mg ODT q12h prn for agitation/restlessness - Insulin gtt on standby to maintain BG < 180 - Replenish electrolytes prn - ABGs in am - Upright CXR in am - Abx/antivirals per ID - Neupogen per oncology; discontinued - Recommend to concentrate medications as much as possible, with D5W as fluid - Med rec requested to be completed; chart review reveals pt on chronic BP/HR medications; re-initiate cautiously; defer to primary team - Nephrology consulted; patient in need of fluid management and diuresis, appreciate time and recs; patient net +, but appears intravascularly depleted, which may be contributing to persistent tachycardia and episodes of hypotension - Palliative care consultation for family discussions and goals of care - Recommend initiation of lasix gtt for better diuresis - Initiation of metoprolol 25mg BID to control HR and BP increases associated with decreases in sedation - Recommend removal of IJ when medication load reduced; with tip sent for culture - Nutrition: Tube feeds at goal - DVT: SCDs - GI: H2B Thank you for this consult, we will happily follow along with you at this time. If you have any additional concerns or would like us to assist in any other way , please do not hesitate to ask. Total time: 60 minutes Pain Evaluation: Adequate Pain Control GI Prophylaxis: H2 germaine VTE Prophylaxis: Sub-Q Heparin (Unfractionated) VTE Mechanical Devices: Intermittant Pneumatic CD Resuscitation Status: CPR: Attempt Resuscitation Limited Interventions: Cardioversion/Defibrillation, Intubation w Mech Vent, Medications and IV Fluid Attending Statement I have seen and examined this patient with the resident physician. Vital signs , labs, imaging have been reviewed. I agree with the assessment and plan above. Please refer to my separately dictated progress note for any modifications to above. Maira Kenyon M.D. Pulmonary and Critical Care medicine Pager [phone] Alfreda Allred DO Oct 06, 2016 10:13 Maira Kenyon MD Oct 06, 2016 14:33
--- NOTE | 2016-10-06 10:42 | PROG NOTE ---
[address] [address] PROGRESS NOTE PATIENT: BRITTNEY CASILLAS : 1940 MR#: [id number] ADMIT: 09/21/2016 JOB ID: [id number] DATE: 10/06/2016 PULMONARY CRITICAL CARE PROGRESS NOTE: The patient is a 76-year-old man with CLL, admitted with septic shock, varicella zoster meningoencephalitis, MSSA bacteremia, and respiratory failure. The patient was seen and evaluated with resident physician, Alfreda Allred DO. Please refer to her separate detailed note for additional information. The following is an addendum. INTERVAL HISTORY: MRI could not be done yesterday due to concerns about being able to manage his blood pressure and sedation, etc. with multiple meds without a pump in the room. Anesthesiology recommended against it, so we agreed in. The patient had a CT scan instead which did not show any acute stroke or bleed. Attempts were made at weaning off his sedation, which resulted in tachypnea, high peak pressures and hypertension. REVIEW OF SYSTEMS: Unable to obtain. PHYSICAL EXAMINATION: Vital signs reviewed. T-max 38 for most of yesterday. FiO2 50%, PEEP of 12 cm, sats of 96%. BP 142/57, pulse 90, respirations 27. General: Intubated, sedated, not responsive. Skin: Multiple crusted vesicular lesions all over seen on face, arm, etc. He does not respond to voice. Chest: Clear to auscultation. Heart: Regular rate, rhythm. LABORATORIES: Reviewed. WBC 6.9, hemoglobin 7.4 from 6.3, platelets 102. Chemistry also reviewed. Creatinine 1.4, stable. Sodium 148, stable. Cultures, no new growth. Blood culture from October 03 is coag-negative staph. Repeat blood cultures are negative to date. Echocardiogram repeated yesterday was a poor quality study. Indicates probable normal LV and RV function. Chest x-ray today unchanged showing pulmonary vascular congestion suggesting pulmonary edema. CT of head, no sign of definite new ischemic injury or intracranial hemorrhage. Some effect that mastoid air cells completely opacified suggesting sinusitis. Venous blood gas this morning shows pH of 7.37, pCO2 of 50, pO2 of 37, bicarb 29. ASSESSMENT AND RECOMMENDATIONS: 1. Septic shock -- resolved. 2. Varicella zoster meningoencephalitis. 3. Methicillin-sensitive Staphylococcus aureus bacteremia. 4. Acute respiratory failure. 5. Acute kidney injury -- improved. 6. Acute encephalopathy. 7. Suspected candidemia based on positive urine and sputum culture without positive blood culture -- on therapy. 8. Chronic lymphocytic leukemia. 9. Anemia of chronic disease. A 76-year-old man with chronic lymphocytic leukemia, presenting with shingles and PCR confirmed varicella zoster meningoencephalitis with methicillin-sensitive Staphylococcus aureus bacteremia. Today is the last day for acyclovir and meropenem, which have both been stopped. Will continue daptomycin to cover both the methicillin-sensitive Staphylococcus aureus bacteremia with a planned six-week course and possibility of the coag-negative staphylococcal bacteremia being a true positive. This could also be suggestive of line colonization, so we will work on taking out the internal jugular. He is on micafungin as mentioned before for candiduria and yannick in sputum cultures without any positive blood cultures. Infectious Disease is following. We are unable to obtain MRI yesterday as described above. Head CT, however, showed no evidence of acute bleed or stroke. We tried to lighten sedation significantly but he became somewhat agitated, with high peak pressures, desaturation and hypertension. He is significantly volume overloaded in the course of this admission, so we will start with some IV Lasix 40 mg, followed by a Lasix drip. We will also start him on metoprolol 25 mg b.i.d. From a sedation standpoint, he is actually down to 25 of fentanyl from over 100. His propofol and Precedex are unchanged. He did not tolerate turning off propofol yesterday. Will try again today with turning off the Precedex and see if he tolerates that any better. I had a long conversation with his son, [id number] and niece about tracheostomy. At this point, my recommendation is to attempt aggressive diuresis and see if we cannot wean his vent settings and getting him closer to being extubated. If we are not really successful in making any progress in the next couple of days with regards to this, we will pursue a tracheostomy. Family indicated that they did speak to him a few weeks ago regarding goals of care, and he indicated he would want aggressive care and all measures. However, if he has a significant neurologic deficit from this meningoencephalitis, they would not want to prolong his life under that circumstance. We will wait and see how his neurologic status improves. From an anemia standpoint, I do not really have a good explanation. Will check a DIC panel and coags. He is on appropriate deep venous thrombosis and gastrointestinal prophylaxis. He is a FULL CODE. He is tolerating tube feeds. Critical care time 60 minutes MTDD
--- NOTE | 2016-10-06 10:49 | PCM.PALLBR ---
Palliative Care Recommendation Summary of palliative recommendations: Palliative Plan: Primary medical teams to begin a lasix gtt to help remove excess fluids associated with the antiviral and antibiotic treatments in an attempt to improve his respiration/oxygenation status. The goal will be to decrease sedation weening off Precedex, and titrating down on Propofol and Fentanyl, and monitor for improved mentation. A wait and see approach will be required, and the pulmonary team will decide on a tracheostomy with family later in the week depending on how the patient's mentation status evolves with time. -Symptom management (Pain/other) - Patient is intubated and sedated - patient is new to the palliative service and patient is currently managed by the primary medical team, pulmonary and critical care team, ID, nephrology, oncology -DPOA/Advanced Directives/POLST - POLST completed with the patient and MD, prior to admission at [facility], on September 18, 2016 -Family/emotional support - 4 sons Duane, Bill, Piyush and Juan. Duane's is Perlita. Haileyece Nakia 10/06 FCTM: Present were Dr. Trent and Dr Pena, Dr Maira Kenyon and family Duane, Perlita and Nakia. The family was made aware of the change from MRI to CT, and the results of the imaging study. The CT scan done yesterday showed no acute brain injuries including stroke or hemorrhage. The plan will be to begin a lasix gtt to help remove excess fluids associated with the antiviral and antibiotic treatments in an attempt to improve his respiration/oxygenation status. The goal will be to decrease sedation weening off Precedex, and titrating down on Propofol and Fentanyl, and monitor for improved mentation. A wait and see approach will be required, and the pulmonary team will decide on a tracheostomy with family later in the week depending on how the patient's mentation status evolves with time. 10/05 Family Care Team Meeting: - held by Dr. Trent and Dr. Pena with patient's daughter in law Perlita and constance Yee. Perlita started out by stating the Magdaleno is totally independent walking without a cane or walker. He recently moved in June to [facility] from an apartment attached to Magdaleno's sons house. Magdaleno can take care of himself except for having meals cooked and his pills arranged for the week. Magdaleno will skip meds without direction, and has other bouts of mild forgetfulness. Perlita stated they know he "has shingles in his brain" and that his kidneys are getting better. Next we went over a POLST that Magdaleno filled out while at [facility] on . No changes were made to the POLST however it was discussed briefly and the family concurred that it is how Magdaleno would want to be treated moving forward. 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 Perlita stated that Magdaleno "doesn't want to ever be a vegetable." - FCTM held 10/06/[address] Trent and Dr Pena, Dr Maira Kenyon and family Duane, Perlita and Nakia. The family was made aware of the change from MRI to CT, and the results of the imaging study. The CT scan done yesterday showed no acute brain injuries including stroke or hemorrhage. The plan will be to begin a lasix gtt to help remove excess fluids associated with the antiviral and antibiotic treatments in an attempt to improve his respiration/oxygenation status. The goal will be to decrease sedation weening off Precedex, and titrating down on Propofol and Fentanyl, and monitor for improved mentation. A wait and see approach will be required, and the pulmonary team will decide on a tracheostomy with family later in the week depending on how the patient's mentation status evolves with time. -Spiritual support - not discussed at this time Family Goals: 1. Family wants to be told the truth about his/her illness, even if it is unpleasant. 2. Family would like to be told prognosis when it can be predicted, to better guide treatment decisions. 3. Patient would not want to be bed bound and unable to care for himself Additional Medical Diagnoses with primary management by Hospitalist team include : VZV encephalitis staph bacteremia bacteroides skin infection yannick urinary tract infection and sinus infection Unknown gram positive bacteremia resistant to Meropenem CLL Problems: Goals of Care 1. Family wants to be told the truth about his/her illness, even if it is unpleasant. 2. Family would like to be told prognosis when it can be predicted, to better guide treatment decisions. 3. Patient would not want to be bed bound and unable to care for himself Disposition The patient is currently unstable enough that no disposition is possible today. Patient will likely be hospitalized for an extended period. Resuscitation Status Resuscitation Status: CPR: Attempt Resuscitation Limited Interventions: Cardioversion/Defibrillation, Intubation w Mech Vent, Medications and IV Fluid POLST Updates/Changes Previous POLST?: Yes POLST Last Review Date: Oct 05, 2016 Antibiotics: Determine Use or Limitations Artificially Admin Nutrition: Trial Period Tube Feeding POLST Discussed with: Spouse/Other (Daughter in Law Perlita and Constance Yee) POLST Review Outcome: No Change Total time 65 minutes; >50% face to face with patient and/or family, providing counselling regarding plans and recommendations, and in care coordination with his/her medical teams. Attending Statement I was physically present and readily available to resident physician during the family conference and we discussed management together. I approve the recommendations and documentation in his note above. Palliative Brief Note Date of Service Oct 06, 2016 . 76yoM on Hospital Day 16 with PMH remarkable for CLL on oral chemotherapy, currently being treated for disseminated VZV meningoencephalitis, MSSA bacteremia, and candiduria. Today there was a brief meeting with family, palliative and critical care team to discuss the current prognosis and projected outlook. Involved were Dr. Trent and Dr Pena (of [facility]), Dr Maira Kenyon (Pulmonary Extruder Tender) and family son Duane, JACQUELYN Bhat and constance Yee. The patient had a CT scan done yesterday which showed no acute brain injuries (thus excluding stroke or hemorrhage). The family was made aware of the change from MRI to CT. It was explained that we were unable to obtain an MRI due to the patient's tenuous status requiring medication pushed by the anesthesiologist information assistant, and a reported complication that the ventilator was not truly MRI compatible so the patient would have to be ventilated by a bag mask during the procedure, which seemed too risky his medical team. The plan for the next few days will be to begin a lasix gtt to help remove excess fluids associated with the antiviral and antibiotic treatments in an attempt to improve his respiration/oxygenation status. The hope is that the medical team will be able to decrease sedation weaning off Precedex, and titrating down on Propofol and Fentanyl, and monitor for improved mentation. A wait and see approach will be required and the pulmonary team will decide on a tracheostomy with family later in the week depending on how the patient's mentation status evolves with time. CHIQUITA PENA DO Oct 06, 2016 10:41 Kimmy Trent MD Oct 06, 2016 12:40
[2016-10-06 11:03] LABS: INR 1.06 ratio
--- NOTE | 2016-10-06 12:54 | NUR ---
blood cultures The blood culture results drawn on 10/03/16 listed as unknown source by lab were drawn via IJ central line 2 sets by 2 different nurses. After having micro pull the bottles for examination they were listed as RIJ or right IJ central line. The lab was unsure what this meant so listed as unknown. Dr. Ritter and Dr. Kenyon notfied.
--- NOTE | 2016-10-06 14:12 | PCM.PNMED ---
Subjective Date of Service Oct 06, 2016 Amy Villegas is a 76-year-old male with CLL currently on chemotherapy with past medical history significant for COPD who was transferred from [facility] due to septic shock and respiratory failure. Currently being treated for staph bacteremia, disseminated zoster, and Gisel albicans. Hospital day 16. Intubation day 16. Overnight: Patient's sedation was decreased subsequently patient became hypertensive and had elevated peak pressures. Sedation was increased and patient remained stable overnight. Today: Patient remains intubated and sedated. Patient with no response to physical stimulation. Lasix drip started today. Fentanyl and versed gtt for sedation. Tube feeds at goal and free water flushes increased with minimal residuals. ROS is not obtainable. Exam Vital Signs Vital Sign - Last Date Time Temp Pulse Resp B/P Pulse Ox O2 Delivery O2 Flow Rate FiO2 10/06/16 04:20 87 151/51 96 50 10/06/16 04:00 37.4 27 Mechanical Ventilator Intake and Output 10/05/16 10/05/16 10/06/16 Cumulative From/Thru 15:00 23:00 07:00 09/21/16 19:30 - 10/06/16 06:45 Intake Total 720 ml 3189 ml 3262 ml 25937 ml Output Total 1960 ml 1900 ml 29731 ml Balance 720 ml 1229 ml 1362 ml 19038 ml Intake Oral 60 ml IV Total 50 ml 1089 ml 936 ml 90958 ml Tube Feeding 900 ml 999 ml 23149 ml Packed Cells 670 ml 925 ml Tube Irrigant 1200 ml 1327 ml 73304 ml Output Urine Total 1650 ml 1500 ml 67902 ml Stool Total 200 ml 400 ml 2260 ml Gastric Drainage Total 110 ml 1675 ml Chest Tube Drainage Total 0 ml 390 ml # Bowel Movements 8 Exam General: Intubated and sedated; no acute distress; anasarca; no responses to stimuli HENT: ETT in place; bilateral corneal edema and conjunctival hemorrhage present Neck: Soft, obese, RIJ in place. Cardiac: Tachycardic; no murmurs appreciated Respiratory: Faint crackles at bases bilaterally; no wheezes Abdomen: Soft, nontender, nondistended; obese Extremities: Bilateraly lower extremity pitting edema and dependent sacral edema. : [place] and FMS in place, scrotal edema present. Skin: Multiple scabbed, healed lesions noted on abdomen and left shoulder. Neuro: Patient sedated and intubated. Psych: Patient sedated and intubated. Lab and Diagnostics Result Diagram: 10/06/1641410/06/16414 Microbiology CSF positive for VZV MRSA negative Buttock culture positive for staphylococcus aureus Blood cultures 2 out of 4 positive for gram positive cocci Sputum positive for staphylococcus aureus Clostridium difficile negative X-Rays, CTs and MRIs CT BRAIN WITHOUT CONTRAST IMPRESSION: Brain parenchyma shows no sign of definite new ischemic injury, no intracranial hemorrhage found, no obstructive hydrocephalus is seen. Significant interval change in appearance of the mastoid air cells recently very clear and now almost completely opacified. Additional sinusitis elsewhere has only changed slightly compared to the prior study from 09/22/16. Dictated by: Juliocesar Sanches M.D. on 10/05/2016 at 17:06 Approved by: Juliocesar Sanches M.D. on 10/05/2016 at 17:10 X-RAY CHEST ONE VIEW, PORTABLE IMPRESSION: Right thoracostomy tube. No pneumothorax or subcutaneous emphysema. Dictated by: Simona Johnson M.D. on 09/25/2016 at 18:52 Approved by: Simona Johnson M.D. on 09/25/2016 at 18:52 X-RAY CHEST ONE VIEW, PORTABLE IMPRESSION: 1. Support lines and tubes as above. 2. Bilateral pleural effusions, right greater than left. 3. Bilateral lower lung consolidation, increasing involving the right lung base and similar involving the left. Dictated by: Francisco Javier BASSETT Interpreted: Merry Robison MD on 09/23/2016 at 9:45 Transcribed by: JIM on 09/23/2016 at 9:45 Approved by: Merry Robison MD, PhD on 09/23/2016 at 16:56 X-RAY CHEST ONE VIEW, PORTABLE IMPRESSION: 1. Support lines and tubes as above. 2. Abnormal opacity within the right lung and the lung bases consistent with pulmonary edema and/or diffuse bilateral inflammatory process. Recommend clinical correlation and followup. Dictated by: Francisco Javier BASSETT Interpreted: Jammie Drake MD on 09/22/2016 at 9: 13 X-RAY CHEST ONE VIEW, PORTABLE IMPRESSION: Improved aeration of the right lung and decreased pleural effusion when compared with the prior study. Dictated by: Simona Johnson M.D. on 09/27/2016 at 8:30 12-lead ECG Normal sinus rhythm at 116 bpm, left axis deviation present, QTC 478, mild widening of QRS complex (104 ms) Additional Diagnostics DateTimeAnalyzed 04:31:00 -_ pH ____7.378 - pCO2 ___50.4__ -mmHg pO2 ___37.0__ -mmHg HCO3- ___29.0__ -mmol/L EEG IMPRESSION: This electroencephalogram performed in the comatose state is abnormal. The slow background activity is suggestive of moderate cerebral cortical dysfunction/encephalopathy. This is a nonspecific finding and may be seen in a wide variety of different clinical conditions, including secondary to medication effect, as well as medical conditions such as toxic metabolic, hypoxic, inflammatory, autoimmune and infectious states. If clinically indicated, a repeat study performed off all fall sedative agents may be helpful. The propofol was held before this electroencephalogram was performed. Clinical correlation is advised. Seamus Cee MD 10/04/16 1904 Assessment & Plan Magdaleno Villegas is a 76-year-old male with CLL currently on chemotherapy with past medical history significant for COPD who was transferred from [facility] due to septic shock and respiratory failure. Currently being treated for staph bacteremia, disseminated zoster, and Gisel albicans. Hospital day 16. Intubation day 16. 1. Staphylococcus bacteremia, present on admission active. - Blood cultures 2 out of 4 positive. - Repeat blood cultures drawn with no growth on 09/27. - Nafcillin continuos infusion from 09/24-09/30. - Meropenem 09/30-10/06. - Daptomycin started 10/05. -will remove IJ TLC today 10/[address]ICC,will send tip for culture - Dr. Ritter consulted, appreciate time and expertise. 2. Septic shock requiring 3 pressors support, present on admission. resolved - Etiology multifactorial including disseminated zoster, staph bacteremia, and decubitus ulcer on left ischial tuberosity. - At [facility] patient became hypotensive and unresponsive to fluids and was started on three pressors and transferred to [facility]. - On admission here patient tachycardic, pro-calcitonin 21.82, lactic acid of 4.8 (lactic acid at [facility] was 1.4). - Norepinephrine titrated off on 09/28. Restarted 10/02. Titrated off again on . - Blood cultures and lumbar puncture as below. - Dr. Ritter consulted, appreciate the expertise. 3. Disseminated zoster, present on admission, active. - Encephalitis, hepatitis, and pneumonitis secondary to disseminated zoster - Evidence of multiple lesions in multiple dermatomes. Currently crusted. - Acyclovir course of 17 days completed on 10/06 - Lumbar puncture with high opening pressure. CSF clear, WBC 19, RBC 2, Mononuclear WBCs 100, Polynuclear WBCs 0, Glucose 75, Protein 58. - Continues to be unresponsive to stimuli. - EEG completed 10/02. Results as above. - CT head 10/05 as above. - Dr. Ritter consulted, appreciate the expertise. 4. Acute hypoxic respiratory failure, present on admission, active. - Patient presented with severe hypoxia and was requiring 100% FiO2, 12 of PEEP , respiratory rate of 35, and tidal volumes were initially 600 mL but was quickly taken down to 470 mL. - Chest tube placed 09/25 due to hypoxemia secondary to large pleural effusion. - Patient also has suspected underlying COPD which will complicate his pulmonary course. - Lasix drip started 10/06 to help improve respiratory status. +21 kgs positive , admission weight 116kg,wt today 137kg - Ventilator management per ICU team, appreciate the expertise 5. Lactic acidosis, present on admission, resolved - Etiology is likely infectious but patient's CLL likely a contributing factor. - Lactic acid 4.8 on admission. - Will continue to monitor. 6. Acute kidney injury, present on admission, improving. - Patient presented to [facility] with a creatinine of 0.8, however over the subsequent days prior to his transfer here he was having a slow increase in his creatinine up to 1.6 and after pressure support his creatinine on arrival here was 2.21. - This acute kidney injury is likely due to hypoperfusion/prerenal secondary to dehydration and excessive pressure support with 2 peripheral vasoconstrictors and Levophed. Likely has a degree of ATN. - Lasix drip started 10/06. - Continues to have good urine output. - Continue to monitor I and O and daily BMP - No indication for dialysis at this time - Nephrology consulted. Appreciate time and expertise. 7. Hypernatremia, not present on admission, active. - Free water flushes increased to 300 ml Q4H. - D5W 60 ml/hr stopped. - Meds to be mixed in d5w. - Continue to monitor with BMP. 8. Chronic lymphocytic leukemia, present on admission, undergoing oral chemotherapy prior to hospitalization. - No records available thus far but patient appears to be on current chemotherapy per family. - Neupogen given per Dr. Benavides's recommendations. - Heme/Onc consulted. Appreciate time and expertise. 9. Elevated liver enzymes, present on admission, improving. - Etiology likely multifactorial including disseminated zoster and shock liver. - Liver enzymes trending down. 10. Acute encephalopathy, present on admission, active. - Patient has a recent history of acute confusion with hospital admission and resolution of confusion during those stays. 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 - Sedation titrated down but continues on fentanyl and versed. - CT head showed no acute intracranial process. Repeat 10/05 confirmed no changes. - Lumbar puncture with high opening pressure. CSF clear, WBC 19, RBC 2, Mononuclear WBCs 100, Polynuclear WBCs 0, Glucose 75, Protein 58. 11. Decubitus ulcer, present on admission, active. - Wound culture grew bacteroides fragillis. - Metronidazole stopped. - Wound care consulted. 12. 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 - Micafungin 150 mg Q24H. 13.Anemia requiring transfusion -multifactorial(infection,CKD,hemodilution -transfused 2PRBCs on 10/05 -Hb 7.4 today 10/06 Disposition: Patient remains critically ill and in the CCU. Patient not tolerating decreased sedation. Plan to proceed with MRI on 10/05 to evaluate brain more thoroughly. Overall his prognosis is guarded as he has no improvement in mental status with reduction of sedation. GI Prophylaxis: H2 germaine VTE Prophylaxis: Sub-Q Heparin (Unfractionated) VTE Mechanical Devices: Intermittant Pneumatic CD Resuscitation Status: CPR: Attempt Resuscitation Limited Interventions: Cardioversion/Defibrillation, Intubation w Mech Vent, Medications and IV Fluid Attending Statement patient seen and examined with Dr Lama ,I agree with history,exam,impression and plan as outlined above MATTHEW LAMA DO Oct 06, 2016 07:52 Arvind Stockton MD Oct 06, 2016 15:44
--- NOTE | 2016-10-06 14:39 | NUR ---
Chest Tube discontinued by surgery at 1130, site dressed/CDI.
--- NOTE | 2016-10-06 15:58 | PCM.PNMED ---
Subjective Date of Service Oct 06, 2016 Subjective Nephrology Progress Note: Attending Dr. Ronny Villegas is a 76-year-old male with a past medical history significant for CLL currently on chemotherapy, COPD, recent visit to [facility] in [place], and hypertension who was a direct transfer to [facility] from [facility] due to septic shock secondary to presumed aspiration pneumonia now being treated for DANY, staphylococcus bacteremia, candiduria with suspected disseminated candidiasis and disseminated zoster. Hospital day #16. Overnight: There were no acute events. Telemetry overnight: Sinus rhythm, heart rate 90 to 100's, without ectopy. Subjective exam and review of systems in unavailable as patient is intubated and sedated. The patient remains in critical condition but off of norepinephrine. Remains febrile Tmax 38.1. Hgb was 6.3 and is receiving 2 U PRBC 's. Family is at the bedside. . Exam Vital Signs Vital Sign - Last Date Time Temp Pulse Resp B/P Pulse Ox O2 Delivery O2 Flow Rate FiO2 10/06/16 12:00 38.0 87 26 145/52 96 Mechanical Ventilator 10/06/16 11:44 50 Intake and Output 10/05/16 10/05/16 10/06/16 Cumulative From/Thru 14:59 22:59 06:59 09/21/16 19:30 - 10/06/16 06:45 Intake Total 720 ml 3189 ml 3262 ml 05617 ml Output Total 1960 ml 1900 ml 02994 ml Balance 720 ml 1229 ml 1362 ml 22441 ml Intake Oral 60 ml IV Total 50 ml 1089 ml 936 ml 09132 ml Tube Feeding 900 ml 999 ml 26541 ml Packed Cells 670 ml 925 ml Tube Irrigant 1200 ml 1327 ml 72223 ml Output Urine Total 1650 ml 1500 ml 46437 ml Stool Total 200 ml 400 ml 2260 ml Gastric Drainage Total 110 ml 1675 ml Chest Tube Drainage Total 0 ml 390 ml # Bowel Movements 8 Exam General: Intubated and sedated. HEENT: Normocephalic, atraumatic. External ears without defect. Pupils equal, round, and reactive to light. Anicteric sclerae and injected conjunctivae. Endotracheal tube and OG tube in place. Neck: Supple. No jugular venous distension. No bruits. No lymphadenopathy or thyromegaly. Right IJ. Cardiovascular: Regular rate and rhythm with no murmurs, rubs, or gallops appreciated. Pulmonary: Coarse lung sounds left greater than right .Chest tube in place on right. Abdomen: Soft, nontender, moderate distension, decreased bowel sounds. Genitourinary: severe scrotal swelling, hearn cath in place with yellowish urine. Extremities: Moderate pitting edema to knees bilaterally. Skin: Crusted papules noted on left shoulder. Ventilator settings: PRVC. Tidal volume 480. Respiratory rate 24. FiO2 50 %. PEEP 12.0. VBG: PH 7.38. PCO2 50.4. PO2 37.0. Bicarbonate 29.0. IV drips and Sedatives: Propofol 30 g/kg/min and fentanyl 25 g/hr. Lasix gtt. IV lines: Right IJ central line removed. Left double lumen PICC line. . IVs and Medications Medications Reviewed: Medications were reviewed in detail Lab and Diagnostics Item Value Date Time Calcium Level 7.8 mg/dL L 10/06/16414 Phosphorus Level 4.7 mg/dL 10/06/16414 Magnesium Level 1.9 mg/dL 10/06/16 041 Result Diagram: 10/06/1641410/06/16 1030 Microbiology CSF positive for VZV. MRSA screen negative. Buttock culture positive for staphylococcus aureus resistant to tetracycline and bacteroides fragilis. Blood cultures 2:4 positive for staphylococcus aureus resistant to tetracycline. Sputum positive for staphylococcus aureus resistant to tetracycline. Clostridium difficile PCR negative. Fungal blood cultures x 2 pending. Urine grew yannick albicans. . X-Rays, CTs and MRIs X-RAY CHEST ONE VIEW, PORTABLE IMPRESSION: No change in multifocal pneumonia. Dictated by: Adalberto Barker M.D. on 10/04/2016 at 7:40 Approved by: Adalberto Barker M.D. on 10/04/2016 at 7:41 X-RAY CHEST ONE VIEW, PORTABLE IMPRESSION: Right thoracostomy tube. No pneumothorax or subcutaneous emphysema. Dictated by: Simona Johnson M.D. on 09/25/2016 at 18:52 Approved by: Simona Johnson M.D. on 09/25/2016 at 18:52 X-RAY CHEST ONE VIEW, PORTABLE IMPRESSION: 1. Support lines and tubes as above. 2. Bilateral pleural effusions, right greater than left. 3. Bilateral lower lung consolidation, increasing involving the right lung base and similar involving the left. Dictated by: Francisco Javier BASSETT Interpreted: Merry Robison MD on 09/23/2016 at 9:45 Transcribed by: JIM on 09/23/2016 at 9:45 Approved by: Merry Robison MD, PhD on 09/23/2016 at 16:56 X-RAY CHEST ONE VIEW, PORTABLE IMPRESSION: 1. Support lines and tubes as above. 2. Abnormal opacity within the right lung and the lung bases consistent with pulmonary edema and/or diffuse bilateral inflammatory process. Recommend clinical correlation and followup. Dictated by: Francisco Javier BASSETT Interpreted: Jammie Drake MD on 09/22/2016 at 9: 13 . 12-lead ECG EKG: Normal sinus rhythm at 116 bpm, left axis deviation present, QTC 478, mild widening of QRS complex (104 ms). . Additional Diagnostics EEG IMPRESSION: This electroencephalogram performed in the comatose state is abnormal. The slow background activity is suggestive of moderate cerebral cortical dysfunction/encephalopathy. This is a nonspecific finding and may be seen in a wide variety of different clinical conditions, including secondary to medication effect, as well as medical conditions such as toxic metabolic, hypoxic, inflammatory, autoimmune and infectious states. If clinically indicated, a repeat study performed off all fall sedative agents may be helpful. The propofol was held before this electroencephalogram was performed. Clinical correlation is advised. Seamus Cee MD 10/04/161903 . Assessment & Plan Magdaleno Villegas is a 76-year-old male with a past medical history significant for CLL currently on chemotherapy, COPD, recent visit to [facility] in [place], and hypertension who was a direct transfer to [facility] from [facility] due to septic shock secondary to presumed aspiration pneumonia now being treated for DANY, staphylococcus bacteremia, candiduria with suspected disseminated candidiasis and disseminated zoster. Hospital day #16. Impression: 1. DANY on CKD due to nonoliguric ATN and sepsis. 2. Hypervolemic hypernatremia. 3. Anasarca with low effective circulating volume. 4. Septic shock secondary to staphylococcus bacteremia. 5. Candiduria with suspected disseminated candidiasis. 6. Disseminated zoster. 7. History of CLL. Plan: - Discontinue IV Lasix boluses and start IV Lasix gtt. - Continue IV 25% albumin q 12 hr. - Try to limit sources of fluid administration as much as possible as patient is net +33 L. . GI Prophylaxis: H2 germaine VTE Prophylaxis: Sub-Q Heparin (Unfractionated) VTE Mechanical Devices: Intermittant Pneumatic CD Resuscitation Status: CPR: Attempt Resuscitation Limited Interventions: Cardioversion/Defibrillation, Intubation w Mech Vent, Medications and IV Fluid Attending Statement Serology attending note: Mr. Villegas's condition is unchanged. Continues to have excellent urine output and his creatinine today is 1.4 mg/dL. The patient was seen and examined along with the internal medicine resident and her note as detailed above I have discussed this with her which I agree with the plan. Zoe Wise DO Oct 06, 2016 15:58 Tres Jefferson DO Oct 06, 2016 17:16
[2016-10-06] MEDS: Labetalol 5 mg/mL 4 mL Inj IVPUSH PRN (16:28)
--- NOTE | 2016-10-06 16:38 | NUR ---
Precedex discontinued per MD. Fentanyl infusion to 25mcg/hr, Propofol at 30mcg; opens eyes, over breathes vent, bolus' required. BP elevated/HR elevated, Labetolol started with good effect. Temp 37.9. UOP over 2L for 10 hours via hearn cath; Lasix gtt started + 40mg IVP. Continued liquid stool via FMS. TFs at goal, q 4-hr residuals 120, 80 and 140mls. Sinus rhythm on tele, no ectopy noted. Family at bedside, updated throughout the day. IJ central venous line discontinued/tips sent for culture by IVT this afternoon. SQ insulin for elevated blood sugars.
[2016-10-06] MEDS ORDERED: Insulin GLARgine 100 Unit/mL Syringe SUBQ SCH (21:00)
[2016-10-06 23:48] LABS: Magnesium 1.7 mg/dL (1.6-2.6)
[2016-10-07] VITALS (13 sets, daily range): BP systolic 117–202; BP diastolic 49–77; PULSE 88–101; RESP 24–26; O2SAT 95–97
[2016-10-07] MEDS: Chlorhexidine 0.12% 15 mL Oral Solution MT SCH ×6 (00:05→20:11)
[2016-10-07] MEDS: Propofol Inj 1,000,000 MCG in IV Premix 1 EACH IV SCH ×6 (00:05→17:53)
[2016-10-07] MEDS: Norepinephrine 8,000 mCg/250 mL D5W Premix IV SCH ×2 (00:07→20:53)
[2016-10-07] MEDS ORDERED: Potassium Chloride 20 mEq/15 mL Oral Soln(K 3 - 3.7 & Creat < 2) TUBE ONE (00:50)
[2016-10-07] MEDS: Insulin Human REGular 300 Unit/3 mL Inj SUBQ SCH ×4 (03:04→20:15)
[2016-10-07 05:47] LABS: BASOPHILS % (AUTO) 0.2 % (0-3); EOSINOPHILS % (AUTO) 2.5 % (0-5); MONOCYTES % (AUTO) 20.7 % (4-12); Mean Corpuscular Hemoglobin 28.7 pg (27.0-35.0); Mean Corpuscular Volume 93.6 fL (81-100); Platelet Count 105 bil/L (150-400)
[2016-10-07 06:06] LABS: Magnesium 1.7 mg/dL (1.6-2.6); Phosphorus 4.3 mg/dL (2.5-4.9)
--- NOTE | 2016-10-07 06:18 | NUR ---
P) Sedation/Cardiac/Respiratory/fever Pt. febrile again tonight, T-max 38.3c orally, initially very hypertensive with blood pressures as high as 208/59, eyes open and tearing but not appearing to track, do turn in the vague direction of someone calling his name, also moved his head and neck some tonight. Cardiac rhythm also initially sinus tach, lungs coarse and bloody, yellow phlegm suctioned from ET tube. I) Passive cooling, titrated propofol and fentanyl for pain and sedation, turning q2h and floating heels, also using continuous rotation. Again lots of family questions. Daughter spent the night. E) Currently resting quietly with eyes closed, am titrating sedation down for days.
[2016-10-07] MEDS: Micafungin Inj 150 MG in Dextrose 5% 100 ML IV SCH (07:35)
[2016-10-07] MEDS: Furosemide Inj 100 MG in 0.9% Sodium Chloride 90 ML IV SCH ×2 (07:36→18:48)
[2016-10-07] MEDS: Famotidine Inj 20 MG in IV Premix 1 EACH IV SCH ×3 (07:36→20:11)
[2016-10-07] MEDS: 0.9% Sodium Chloride 250 ML IV SCH (07:38)
[2016-10-07] MEDS: LacriLube S.O.P. 3.5 Gm Ophthalmic Ointment BOTH_EYES SCH ×2 (07:43→20:09)
[2016-10-07] MEDS ORDERED: Famotidine Inj 20 MG in IV Premix 1 EACH IV SCH (08:30)
[2016-10-07] MEDS ORDERED: Micafungin Inj 150 MG in Dextrose 5% 100 ML IV SCH (08:30)
--- NOTE | 2016-10-07 09:05 | PROG NOTE ---
[address] [address] PROGRESS NOTE PATIENT: BRITTNEY CASILLAS : 1940 MR#: [id number] ADMIT: 09/21/2016 JOB ID: [id number] DATE: 10/07/2016 REASON FOR FOLLOW UP: Disseminated varicella zoster virus infection, encephalitis, MSSA bacteremia with shock, acute renal failure, ventilator dependent respiratory failure. INTERVAL HISTORY: Since yesterday, numerous things have occurred. We went ahead and discontinued his meropenem, as he had received a reasonable course of that for possible nosocomial pneumonia and/or bacteremia. Also, the patient's acyclovir was stopped as he had completed a two week course for disseminated zoster. Efforts were also made to lighten up the patient's sedation, but as of yet, there has been very little in the way of neurologic recovery and the patient remains intubated, somewhat less sedated, and essentially unresponsive. This case was discussed with the patient's family as well as the nursing staff at the bedside. PHYSICAL EXAMINATION: Reveals an intubated, somewhat sedated and unresponsive gentleman. He spiked to 38.3 degrees yesterday evening. Recall that we also discontinued his central line on the right as well as his chest tube yesterday. His current temperature is 37.3, pulse 99, respiratory rate 26, blood pressure 156/60. He is saturating well on 50% and 12 of PEEP. No vasopressor agents are being used and urine output is excellent. Eyes are mid range and slowly responsive. No scleral icterus or conjunctivitis is noted. Oral endotracheal tube, oral gastric tube normal. All zoster lesions have crusted. There is still a macular rash which encompasses the flanks and back, and has little change. This does not have the appearance in any way of zoster. The patient's lungs are relatively clear anteriorly with just a few crackles heard at the bases. Cardiac tones regular rate and rhythm with tachycardia. The patient's abdomen is unchanged, soft and without organomegaly. The scrotum is grossly swollen but without skin breakdown. Prado catheter present. Lower extremity edema present as before. The feet are well perfused, and he is not receiving vasopressor agents. LABORATORIES: Include today white count 6400, platelet count 105, creatinine 1.13, which is basically all the way down to normal. LFTs are normal. Total protein 3.1. Procalcitonin 0.49, down from a peak of 31, when he came in. Urinalysis without white cells. Fungitell has come back at 51, which is unremarkable, and recall that we had been concerned about disseminated Gisel. Micro studies include fungal blood cultures on the which are negative. Sputum from the , which is basically negative, and Gisel which has grown in two urine samples as well as sputum. The blood culture on the , 2/4 bottles drawn from the IJ line, grew a coag-negative Staph, and I have asked the lab to check for daptomycin susceptibilities, and it is very sensitive to daptomycin. IMAGING: Includes yesterday's chest x-ray which shows multifocal infiltrates as before. IMPRESSION: This continues to be an extremely complex case. At this point, we have completed 14 days of varicella zoster therapy and now has been off acyclovir for a day. At this point, any neurologic impact to the acyclovir should be gone given the short half-life of this agent, and we await possible improvements in his mental status. The patient's MSSA bacteremia is still being treated with the daptomycin. We have no idea if he has endocarditis as the transthoracic echos are not adequate to visualize his valves. In addition, on the , we had 2/4 blood cultures drawn through the IJ line, which has now been removed, which grew coag-negative Staph, also sensitive to daptomycin. Whether or not the coag-negative Staph bacteremia was real is unclear, but at least we have removed the line from which it was cultured and the patient is now on appropriate therapy. The patient may have disseminated Gisel based on urine and sputums that are positive in this immunosuppressed host, and we are going to treat for two weeks with micafungin. His overall mental status continues to be very diminished, but I am hopeful that he will start to awaken as we remove drugs and his overall condition slowly improves. How much of an insult he has suffered from the varicella zoster encephalitis is yet to be determined. RECOMMENDATIONS: 1. We have requested cultures from the cath tip which apparently is sitting in the lab. This was the IJ cath tip that was removed. 2. Repeat fungal blood cultures will be done through the remaining PICC line as well as through the skin. 3. Will continue with micafungin for two weeks. 4. Will continue with daptomycin for a total of perhaps as long as six weeks of total anti- MSSA therapy unless we get a REGINALD. 5. This case was discussed in detail with the patient's family. MERYL
[2016-10-07] MEDS: DAPTOmycin Inj 750 MG in 0.9% Sodium Chloride 50 ML IV SCH (09:23)
[2016-10-07] MEDS: Heparin 5,000 Unit/mL Inj SUBQ SCH ×2 (09:24→20:12)
[2016-10-07] MEDS: Senna Leaf Extract 528 mg/15 mL Syrup PO SCH ×2 (09:24→20:11)
--- NOTE | 2016-10-07 09:38 | ABG ---
DateTimeAnalyzed 09:33:00 -_ pH ____7.355 - 7.350 7.450 pCO2 ___56.2__ -mmHg 35.0 45.0 pO2 ___41.1__ -mmHg 69.0 116 HCO3- ___30.6__ -mmol/L ABE ____4.9__ -mmol/L tHb ____7.8__ -g/dL O2Hb ___73.4__ -% COHb ____1.7__ -% MetHb ____0.9__ -% sO2 ___75.4__ -% FIO2 ___50.0__ -% PRVC 24 - PEEP ___12.0__ -cmH2O Vt __480.0__ -L Drawn By gj - Date/Time Notified____ 09:38:00 -_ Spontaneous_RR ___26.0__ -b/min Oxygen Device 1 VENTILATOR - Notified Whom __BARRETT - B 766 -mmHg tO2 ____8.1__ -Vol% Jeevan test N/A -
--- NOTE | 2016-10-07 09:46 | DRSVH ---
PROCEDURE: X-RAY CHEST ONE VIEW, PORTABLE ([id number]) INDICATIONS: intubated TECHNIQUE: One view of the chest was acquired. COMPARISON: [facility], CR, XR CHEST 1VW (PORTABLE), 10/06/2016, 5:33. FINDINGS: Surgical changes and devices: Right pleural drain is been removed otherwise stable position of ETT, l eft PICC and a nasogastric tube tip is not well-seen. Lungs and pleura: No pneumothorax. Mediastinum: Mild edema and mid/basilar airspace opacity similar prior examination. Small pleural ef fusions. No pneumothorax. Bones and chest wall: No suspicious bony lesions. Overlying soft tissues appear unremarkable. IMPRESSION: Interval removal right pleural drain otherwise no significant change from prior exam. Dictated by: Francicso Javier Antonio [facility] Interpreted: Merry Robison MD on 10/07/2016 at 9:44 Transcribed by: JIM on 10/07/2016 at 9:45 Approved by: Merry Robison MD, PhD on 10/07/2016 at 10:54
[2016-10-07] MEDS ORDERED: Magnesium Sulf 2 Gm/50mL Water 2 GM in IV Premix 1 EACH IV ONE (09:50)
--- NOTE | 2016-10-07 10:20 | PCM.PNMED ---
Subjective Date of Service Oct 07, 2016 Subjective PULMONARY/CRITICAL CARE PROGRESS NOTE Yesterday/Overnight: Chest tube and RIJ removed; IJ tip sent for cx. Sedation continued to be decreased. Increases in BP, HR noted. Today: No acute distress noted. Unable to open eyes/follow commands/respond to stimuli. Fentanyl decreased to 50, propofol 40, precedex remains off, no pressors required. Labs: Hb Hct 7.2/23.5, Na 148, K 4.0, Cr 1.13 Info: Net IO + [address]361; 24hUOP 4200mL; 24hIO +1199 Vent: PRVC FiO2 50, PEEP 12, R 24, Vt 480 Exam Vital Signs Vital Sign - Last Date Time Temp Pulse Resp B/P Pulse Ox O2 Delivery O2 Flow Rate FiO2 10/07/16 08:00 99 177/77 95 50 10/07/16 07:53 37.3 26 Mechanical Ventilator Intake and Output 10/06/16 10/06/16 10/07/16 Cumulative From/Thru 15:00 23:00 07:00 09/21/16 19:30 - 10/07/16 06:24 Intake Total 2927 ml 2743 ml 11789 ml Output Total 3090 ml 2900 ml 99405 ml Balance -163 ml -157 ml 44002 ml Intake Oral 60 ml IV Total 827 ml 522 ml 77217 ml Tube Feeding 900 ml 947 ml 34633 ml Packed Cells 925 ml Tube Irrigant 1200 ml 1274 ml 57115 ml Output Urine Total 2700 ml 2700 ml 91375 ml Stool Total 50 ml 200 ml 2510 ml Gastric Drainage Total 340 ml 2015 ml Chest Tube Drainage Total 390 ml # Bowel Movements 8 Exam General: Intubated and sedated; no acute distress; diffusely edematous; no responses to stimuli HENT: ETT in place, mucus membranes dry; conjunctival erythema present Neck: Soft, obese, trachea midline by palpation; edematous Cardiac: Tachycardic; no murmurs appreciated Respiratory: Sounds faint secondary to habitus, R > L diminished sounds; faint crackles at bases bilaterally; no wheeze appreciated Abdomen: Soft, nontender, nondistended; obese; Moderate-severe pitting anasarca present Extremities: BLLE moderate-severe pitting edema from ankles to abdomen; BLUE moderate pitting edema noted distal extremities to trunk Lines: Left PICC; bandages dry, intact : Prado in place; urine yellow; severe scrotal edema present without evidence of breakdown at this point Skin: Multiple scabbed, healed lesions noted over lower abdomen and groin; no active bleeding or exudate noted. Additional scabbed lesions noted diffusely over left shoulder anteriorly without active bleeding or exudate, continue to appear dry and healing; lesions of bilateral wrists erythematous and weeping, no active bleeding; irregular erythematous papular rash noted along anterior region of bilateral hip without bleeding or exudate Neuro: Unable to fully assess secondary to intubation and sedation; not aroused to voice or sternal rub Psych: Unable to assess at this time secondary to intubation and sedation Lab and Diagnostics Result Diagram: 10/07/16 0510/07/16 05 Microbiology CSF positive for VZV. MRSA screen negative. Buttock culture positive for staphylococcus aureus resistant to tetracycline and bacteroides fragilis. Blood cultures 2:4 positive for staphylococcus aureus resistant to tetracycline. Sputum positive for staphylococcus aureus resistant to tetracycline. Clostridium difficile PCR negative. Fungal blood cultures x 2 pending. Urine grew yannick albicans. . X-Rays, CTs and MRIs X-RAY CHEST ONE VIEW, PORTABLE IMPRESSION: No change in multifocal pneumonia. Dictated by: Adalberto Barker M.D. on 10/04/2016 at 7:40 Approved by: Adalberto Barker M.D. on 10/04/2016 at 7:41 X-RAY CHEST ONE VIEW, PORTABLE IMPRESSION: Right thoracostomy tube. No pneumothorax or subcutaneous emphysema. Dictated by: Simona Johnson M.D. on 09/25/2016 at 18:52 Approved by: Simona Johnson M.D. on 09/25/2016 at 18:52 X-RAY CHEST ONE VIEW, PORTABLE IMPRESSION: 1. Support lines and tubes as above. 2. Bilateral pleural effusions, right greater than left. 3. Bilateral lower lung consolidation, increasing involving the right lung base and similar involving the left. Dictated by: Francisco Javier Antonio [facility] Interpreted: Merry Robison MD on 09/23/2016 at 9:45 Transcribed by: JIM on 09/23/2016 at 9:45 Approved by: Merry Robison MD, PhD on 09/23/2016 at 16:56 X-RAY CHEST ONE VIEW, PORTABLE IMPRESSION: 1. Support lines and tubes as above. 2. Abnormal opacity within the right lung and the lung bases consistent with pulmonary edema and/or diffuse bilateral inflammatory process. Recommend clinical correlation and followup. Dictated by: Francisco Javier Antonio [facility] Interpreted: Jammie Drake MD on 09/22/2016 at 9: 13 . 12-lead ECG EKG: Normal sinus rhythm at 116 bpm, left axis deviation present, QTC 478, mild widening of QRS complex (104 ms). . Additional Diagnostics EEG IMPRESSION: This electroencephalogram performed in the comatose state is abnormal. The slow background activity is suggestive of moderate cerebral cortical dysfunction/encephalopathy. This is a nonspecific finding and may be seen in a wide variety of different clinical conditions, including secondary to medication effect, as well as medical conditions such as toxic metabolic, hypoxic, inflammatory, autoimmune and infectious states. If clinically indicated, a repeat study performed off all fall sedative agents may be helpful. The propofol was held before this electroencephalogram was performed. Clinical correlation is advised. Seamus Cee MD 10/04/16 1551 . Assessment & Plan PULMONARY/CRITICAL CARE CONSULT NOTE - Hospital day 16 - Ventilator day 16 Mr. Villegas was emergently transferred from [facility] with severe sepsis likely secondary to aspiration PNA. He required intubation and sedation, fluid resuscitation, use of pressor agents, and paralytics. He was stabilized in the CCU, with pressor weaning, and continued ventilatory support. Infectious disease has been consulted to evaluate the source of infection, including the disseminated VZV. Chart review reveals multiple recent hospitalizations at [place] and [facility] within recent days prior to this admission for reported AMS. Imaging was performed at these facilities, and requests were placed to push images to our system and to obtain records. He currently remains stable in the CCU intubated and sedated receiving fluids, pressors, and antibiotics. Repeat CT 09/22 did not reveal any acute pathologies. Echo completed 09/22, was a difficult study, but LV was grossly unremarkable with function, and RV was mildly dilated, but unremarkable in function. Valves were not well visualized. CSF PCR confirmed the presence of zoster. S. aureus has been detected in sputum , blood, and buttock lesion, indicating a staph bacteremia; Bacteroides was found within buttock lesion as well. Infectious disease consulted and following. Nephrology was consulted to evaluate kidney function and fluid status. Recent decrease in Hb/acute anemia may be indicative of dilution, significant decreases have resulted in pRBC transfusions. Chest tube was urgently placed 09/25 secondary to rapidly progressing hypoxemia due to enlarging effusion. Estimated 1-2L drained upon tube placement, fluid yellow/ clear in color. Chest tube output decreased to zero, remains in place while mechanically ventilated. Lesions developed on bilateral wrists that appear weeping and erythematous, likely secondary to irritation from restraint and ID bracelet placement. No concern for zoster. Fevers developed 09/29-09/30, and continue intermittently. New cultures obtained. Briefly remained afebrile after abx switched from nafcillin to meropenem, but fevers returned. Ice packs and cooling measures instituted in addition to APAP IV. Copious thick, yellow secretions produced. Concern for VAP. Sputum Cx sent. Prognosis remains guarded at this time. Immediate concerns include patient's inability to be weaned off sedation and inability to arouse to stimuli. It is unclear the level of cognitive function that is present. EEG completed 10/02, noted to have comatose waveforms. Echo LTD was not able to well visualize the valves. MR brain was unable to be completed due to question of the exact compatibility of the portable ventilator with the MRI machine and ability to maintain medication pushes throughout the procedure. CT brain wo contrast was completed in lieu, no obvious sign of ischemic injury or hemorrhage noted. Palliative care has kindly consulted and will be crucial in navigating family understanding and expectations. Topic of tracheostomy was breached, and family goals at this time are to aggressively decrease sedation and assess mentation later this week. Assessments - Acute hypoxemic respiratory failure; ongoing - Severe sepsis likely secondary to aspiration PNA, bacteremia, and disseminated zoster; therapy completed - Suspected aspiration PNA vs zoster pneumonitis; therapy completed - Disseminated zoster with meningoencephalitis; therapy completed - Staph bacteremia; under therapy - DANY; improving - Normocytic normochromic anemia, acute; stable; s/p total 3U pRBC - Hypertensive urgency - UTI secondary to Yannick - CLL on oral chemotherapy Plan: - Continue mechanical ventilation, decreasing FiO2, PEEP as tolerated - Decrease sedation as tolerated as day progresses; goal to have all sedation off - Consider Zyprexa 10mg ODT q12h prn for agitation/restlessness - Insulin gtt on standby to maintain BG < 180 - Replenish electrolytes prn - ABGs in am - Upright CXR in am - Abx/antivirals per ID: daptomycin, micafungin - Neupogen per oncology; discontinued - Recommend to concentrate medications as much as possible, with D5W as fluid - Med rec requested to be completed; chart review reveals pt on chronic BP/HR medications; re-initiate cautiously; defer to primary team - Nephrology consulted; patient in need of fluid management and diuresis, appreciate time and recs; patient net +, but appears intravascularly depleted, which may be contributing to persistent tachycardia and episodes of hypotension ; albumin 25g q12 - Palliative care consultation for family discussions and goals of care - Recommend initiation of lasix gtt for better diuresis; Increase in rate to 10 - Initiation of metoprolol 25mg BID to control HR and BP increases associated with decreases in sedation; may need to increase in frequency if BP remain elevated - Labetalol 10-20mg IV prn sysBP > 170 - Sputum Cx for new secretions - Nutrition: Tube feeds at goal; free water flushes 100mL/hr - DVT: SCDs - GI: H2B Thank you for this consult, we will happily follow along with you at this time. If you have any additional concerns or would like us to assist in any other way , please do not hesitate to ask. Total time: 60 minutes Pain Evaluation: Adequate Pain Control GI Prophylaxis: H2 germaine VTE Prophylaxis: Sub-Q Heparin (Unfractionated) VTE Mechanical Devices: Intermittant Pneumatic CD Resuscitation Status: CPR: Attempt Resuscitation Limited Interventions: Cardioversion/Defibrillation, Intubation w Mech Vent, Medications and IV Fluid Attending Statement I have seen and examined this patient with the resident physician. Vital signs , labs, imaging have been reviewed. I agree with the assessment and plan above. Please refer to my separately dictated progress note for any modifications to above. Maira Kenyon M.D. Pulmonary and Critical Care medicine Pager [phone] Alfreda Allred DO Oct 07, 2016 10:20 Maira Kenyon MD Oct 08, 2016 11:17
--- NOTE | 2016-10-07 10:21 | PCM.PNMED ---
Subjective Date of Service Oct 07, 2016 Amy Villegas is a 76-year-old male with CLL currently on chemotherapy with past medical history significant for COPD who was transferred from [facility] due to septic shock and respiratory failure. Currently being treated for staph bacteremia, disseminated zoster, and Yannick albicans. Hospital day 17. Vent day 17. Overnight: Tmax of 38.3. Blood pressures elevated with systolics in low 200s. IJ and chest tube removed yesterday. UOP 2700 mls in last 12 hours. Today: Patient continues on propofol 40 and fentanyl 50. Thick yellow secretions from ETT this morning. Patient remains unresponsive. ROS is not obtainable. Exam Vital Signs Vital Sign - Last Date Time Temp Pulse Resp B/P Pulse Ox O2 Delivery O2 Flow Rate FiO2 10/07/16 04:36 90 117/49 96 50 10/07/16 04:00 37.2 25 Mechanical Ventilator Intake and Output 10/06/16 10/06/16 10/07/16 Cumulative From/Thru 15:00 23:00 07:00 09/21/16 19:30 - 10/07/16 06:24 Intake Total 2927 ml 2743 ml 14579 ml Output Total 3090 ml 2900 ml 55045 ml Balance -163 ml -157 ml 31850 ml Intake Oral 60 ml IV Total 827 ml 522 ml 02187 ml Tube Feeding 900 ml 947 ml 56698 ml Packed Cells 925 ml Tube Irrigant 1200 ml 1274 ml 55974 ml Output Urine Total 2700 ml 2700 ml 38136 ml Stool Total 50 ml 200 ml 2510 ml Gastric Drainage Total 340 ml 2015 ml Chest Tube Drainage Total 390 ml # Bowel Movements 8 Exam General: Intubated and sedated; no acute distress; anasarca; no responses to stimuli HEENT: ETT in place; bilateral corneal edema improved and conjunctival hemorrhage present Neck: RIJ removed and skin without erythema Cardiac: Tachycardic; no murmurs appreciated Respiratory: Faint crackles at bases bilaterally; no wheezes Abdomen: Soft, nontender, nondistended; obese Extremities: Bilateral lower extremity pitting edema and dependent sacral edema. : Prado and FMS in place, scrotal edema present. Skin: Multiple scabbed, healed lesions noted on abdomen and left shoulder. Neuro: Patient sedated and intubated. Psych: Patient sedated and intubated. Lab and Diagnostics Result Diagram: 10/07/16 0510/07/16 0520 Microbiology CSF positive for VZV. MRSA screen negative. Buttock culture positive for staphylococcus aureus resistant to tetracycline and bacteroides fragilis. Blood cultures 2:4 positive for staphylococcus aureus resistant to tetracycline. Sputum positive for staphylococcus aureus resistant to tetracycline. Clostridium difficile PCR negative. Fungal blood cultures x 2 pending. Urine grew yannick albicans. . X-Rays, CTs and MRIs X-RAY CHEST ONE VIEW, PORTABLE IMPRESSION: No change in multifocal pneumonia. Dictated by: Adalberto Barker M.D. on 10/04/2016 at 7:40 Approved by: Adalberto Barker M.D. on 10/04/2016 at 7:41 X-RAY CHEST ONE VIEW, PORTABLE IMPRESSION: Right thoracostomy tube. No pneumothorax or subcutaneous emphysema. Dictated by: Simona Johnson M.D. on 09/25/2016 at 18:52 Approved by: Simona Johnson M.D. on 09/25/2016 at 18:52 X-RAY CHEST ONE VIEW, PORTABLE IMPRESSION: 1. Support lines and tubes as above. 2. Bilateral pleural effusions, right greater than left. 3. Bilateral lower lung consolidation, increasing involving the right lung base and similar involving the left. Dictated by: Francisco Javier BASSETT Interpreted: Merry Robison MD on 09/23/2016 at 9:45 Transcribed by: JIM on 09/23/2016 at 9:45 Approved by: Merry Robison MD, PhD on 09/23/2016 at 16:56 X-RAY CHEST ONE VIEW, PORTABLE IMPRESSION: 1. Support lines and tubes as above. 2. Abnormal opacity within the right lung and the lung bases consistent with pulmonary edema and/or diffuse bilateral inflammatory process. Recommend clinical correlation and followup. Dictated by: Francisco Javier BASSETT Interpreted: Jammie Drake MD on 09/22/2016 at 9: 13 . 12-lead ECG EKG: Normal sinus rhythm at 116 bpm, left axis deviation present, QTC 478, mild widening of QRS complex (104 ms). . Additional Diagnostics EEG IMPRESSION: This electroencephalogram performed in the comatose state is abnormal. The slow background activity is suggestive of moderate cerebral cortical dysfunction/encephalopathy. This is a nonspecific finding and may be seen in a wide variety of different clinical conditions, including secondary to medication effect, as well as medical conditions such as toxic metabolic, hypoxic, inflammatory, autoimmune and infectious states. If clinically indicated, a repeat study performed off all fall sedative agents may be helpful. The propofol was held before this electroencephalogram was performed. Clinical correlation is advised. Seamus Cee MD 10/04/16 3114 . Assessment & Plan Magdaleno Villegas is a 76-year-old male with CLL currently on chemotherapy with past medical history significant for COPD who was transferred from [facility] due to septic shock and respiratory failure. Currently being treated for staph bacteremia, disseminated zoster, and Yannick albicans. Hospital day 17. Vent day 17. 1. Staphylococcus bacteremia, present on admission. Active. - Blood cultures positive on two separate occasions. First with staphylococcus aureus and then with coag negative staphylococcus. - Repeat blood cultures drawn on 10/05 with no growth. - Nafcillin continuos infusion from 09/24-09/30. - Meropenem 09/30-10/06. - Daptomycin started 10/05 and continued. - IJ removed 10/06 and tip sent for culture. - Dr. Ritter consulted, appreciate time and expertise. 2. Septic shock requiring 3 pressors support, present on admission. Resolved. - Etiology multifactorial including disseminated zoster, staph bacteremia, and decubitus ulcer on left ischial tuberosity. - [place] [facility] [place] hypotensive and unresponsive to fluids and was started on three pressors and transferred to [facility]. - On admission here patient tachycardic, pro-calcitonin 21.82, lactic acid of 4.8 (lactic acid at [facility] was 1.4). - Norepinephrine titrated off on 09/28. Restarted 10/02. Titrated off again on . - Blood cultures and lumbar puncture as above. - Dr. Ritter consulted, appreciate the expertise. 3. Disseminated zoster, present on admission. Treatment completed. - Encephalitis, hepatitis, and pneumonitis secondary to disseminated zoster - Evidence of multiple lesions in multiple dermatomes. Currently crusted. - Acyclovir course of 17 days completed on 10/06 - Lumbar puncture with high opening pressure. CSF clear, WBC 19, RBC 2, Mononuclear WBCs 100, Polynuclear WBCs 0, Glucose 75, Protein 58. - Continues to be unresponsive to stimuli. - EEG completed 10/02. Results as above. - CT head 10/05 as above. - Dr. Ritter consulted, appreciate the expertise. 4. Acute hypoxic respiratory failure, present on admission. Active. - Patient presented with severe hypoxia and was requiring 100% FiO2, 12 of PEEP , respiratory rate of 35, and tidal volumes were initially 600 mL but was quickly taken down to 470 mL. - Chest tube placed 09/25 due to hypoxemia secondary to large pleural effusion. Removed on 10/06. - Patient also has suspected underlying COPD which will complicate his pulmonary course. - Lasix drip started 10/06 to help improve respiratory status. +21 kgs positive , admission weight 116kg,wt today 137kg - Ventilator management per ICU team, appreciate the expertise 5. Febrile, not present on admission. Active. - Patient continues to spike fevers. Overnight Tmax of 38.3 C. - Concern for ventilator associated pneumonia or other infectious process. - Sputum cultures sent. - Continue to monitor 6. Acute kidney injury, present on admission. Improving. - Patient presented to [facility] with a creatinine of 0.8, however over the subsequent days prior to his transfer here he was having a slow increase in his creatinine up to 1.6 and after pressure support his creatinine on arrival here was 2.21. - This acute kidney injury is likely due to hypoperfusion/prerenal secondary to dehydration and excessive pressure support with 2 peripheral vasoconstrictors and Levophed. Likely has a degree of ATN. - Lasix drip started 10/06. - Continues to have good urine output. - Continue to monitor I and O and daily BMP - Nephrology consulted. Appreciate time and expertise. 7. Hypernatremia, not present on admission. Active. - Free water flushes decreased to 75 ml Q1H. - Meds mixed in d5w. - Continue to monitor with BMP. 8. Chronic lymphocytic leukemia, present on admission, undergoing oral chemotherapy prior to hospitalization. - No records available thus far but patient appears to be on current chemotherapy per family. - Neupogen given per Dr. Benavides's recommendations. - Heme/Onc consulted. Appreciate time and expertise. 9. Acute encephalopathy, present on admission, active. - Patient has a recent history of acute confusion with hospital admission and resolution of confusion during those stays. 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 - Sedation titrated down but continues on fentanyl and propofol. - CT head showed no acute intracranial process. Repeat 10/05 confirmed no changes. - Lumbar puncture with high opening pressure. CSF clear, WBC 19, RBC 2, Mononuclear WBCs 100, Polynuclear WBCs 0, Glucose 75, Protein 58. 10. Decubitus ulcer, present on admission, active. - Wound culture grew bacteroides fragillis. - Metronidazole stopped. - Wound care consulted. 11. Yannick albicans present in urine, not present on admission, active. - Micafungin 150 mg Q24H. 12.Anemia requiring transfusion - Multifactorial (infection,CKD,hemodilution) - Transfused 3 units PRBCs on 10/04-10/05. - Hb 7.2 today 10/07. Disposition: Patient remains critically ill and in the CCU. Overall his prognosis is guarded. Will continue to diuresis and decrease sedation as tolerated. GI Prophylaxis: H2 germaine VTE Prophylaxis: Sub-Q Heparin (Unfractionated) VTE Mechanical Devices: Intermittant Pneumatic CD Resuscitation Status: CPR: Attempt Resuscitation Limited Interventions: Cardioversion/Defibrillation, Intubation w Mech Vent, Medications and IV Fluid Attending Statement patient seen and examined with Dr Lama, I agree with the history,exam, impression and plan as outlined above MATTHEW LAMA DO Oct 07, 2016 08:04 Arvind Stockton MD Oct 07, 2016 20:33
--- NOTE | 2016-10-07 11:10 | PCM.PNMED ---
Subjective Date of Service Oct 07, 2016 Subjective Nephrology Progress Note: Attending Dr. Ronny Villegas is a 76-year-old male with a past medical history significant for CLL currently on chemotherapy, COPD, recent visit to [facility] in [place], and hypertension who was a direct transfer to [facility] from [facility] due to septic shock secondary to presumed aspiration pneumonia now being treated for DANY, staphylococcus bacteremia, candiduria with suspected disseminated candidiasis and disseminated zoster. Hospital day #17. Overnight: There were no acute events. Telemetry overnight: Sinus rhythm, heart rate 80 to 100's, without ectopy. Subjective exam and review of systems in unavailable as patient is intubated and sedated. . Exam Vital Signs Vital Sign - Last Date Time Temp Pulse Resp B/P Pulse Ox O2 Delivery O2 Flow Rate FiO2 10/07/16 08:00 99 177/77 95 50 10/07/16 07:53 37.3 26 Mechanical Ventilator Intake and Output 10/06/16 10/06/16 10/07/16 Cumulative From/Thru 15:00 23:00 07:00 09/21/16 19:30 - 10/07/16 06:24 Intake Total 2927 ml 2743 ml 58464 ml Output Total 3090 ml 2900 ml 36883 ml Balance -163 ml -157 ml 74160 ml Intake Oral 60 ml IV Total 827 ml 522 ml 45951 ml Tube Feeding 900 ml 947 ml 20718 ml Packed Cells 925 ml Tube Irrigant 1200 ml 1274 ml 52933 ml Output Urine Total 2700 ml 2700 ml 55501 ml Stool Total 50 ml 200 ml 2510 ml Gastric Drainage Total 340 ml 2015 ml Chest Tube Drainage Total 390 ml # Bowel Movements 8 Exam General: Intubated and sedated. HEENT: Normocephalic, atraumatic. External ears without defect. Pupils equal, round, and reactive to light. Anicteric sclerae and injected conjunctivae. Endotracheal tube and OG tube in place. Neck: Supple. No jugular venous distension. No bruits. No lymphadenopathy or thyromegaly. Right IJ. Cardiovascular: Regular rate and rhythm with no murmurs, rubs, or gallops appreciated. Pulmonary: Coarse lung sounds left greater than right .Chest tube in place on right. Abdomen: Soft, nontender, moderate distension, decreased bowel sounds. Genitourinary: severe scrotal swelling, hearn cath in place with yellowish urine. Extremities: Moderate pitting edema to knees bilaterally. Skin: Crusted papules noted on left shoulder. Ventilator settings: PRVC. Tidal volume 480. Respiratory rate 24. FiO2 50 %. PEEP 12.0. VBG: PH 7.38. PCO2 50.4. PO2 37.0. Bicarbonate 29.0. IV drips and Sedatives: Propofol 30 g/kg/min and fentanyl 25 g/hr. Lasix gtt. IV lines: Right IJ central line removed. Left double lumen PICC line. IVs and Medications Medications Reviewed: Medications were reviewed in detail Lab and Diagnostics Item Value Date Time Calcium Level 7.9 mg/dL L 10/07/16 0520 Phosphorus Level 4.3 mg/dL 10/07/16 0520 Magnesium Level 1.7 mg/dL 10/07/16 0520 Total Bilirubin 1.0 mg/dL 10/07/16 0520 Aspartate Amino Transf (AST/SGOT) 34 U/L 10/07/16 0520 Alanine Aminotransferase (ALT/SGPT) 20 U/L 10/07/16 0520 Alkaline Phosphatase 88 U/L 10/07/16 0520 Total Protein 4.5 g/dL L 10/07/16 0520 Albumin 3.1 g/dL L 10/07/16 0520 Procalcitonin 0.49 ng/mL 10/07/16 0520 Result Diagram: 10/07/16 0520 10/07/16 0520 Microbiology CSF positive for VZV. MRSA screen negative. Buttock culture positive for staphylococcus aureus resistant to tetracycline and bacteroides fragilis. Blood cultures 2:4 positive for staphylococcus aureus resistant to tetracycline. Sputum positive for staphylococcus aureus resistant to tetracycline. Clostridium difficile PCR negative. Fungal blood cultures x 2 pending. Urine grew yannick albicans. . X-Rays, CTs and MRIs X-RAY CHEST ONE VIEW, PORTABLE IMPRESSION: No change in multifocal pneumonia. Dictated by: Adalberto Barker M.D. on 10/04/2016 at 7:40 Approved by: Adalberto Barker M.D. on 10/04/2016 at 7:41 X-RAY CHEST ONE VIEW, PORTABLE IMPRESSION: Right thoracostomy tube. No pneumothorax or subcutaneous emphysema. Dictated by: Simona Johnson M.D. on 09/25/2016 at 18:52 Approved by: Simona Johnson M.D. on 09/25/2016 at 18:52 X-RAY CHEST ONE VIEW, PORTABLE IMPRESSION: 1. Support lines and tubes as above. 2. Bilateral pleural effusions, right greater than left. 3. Bilateral lower lung consolidation, increasing involving the right lung base and similar involving the left. Dictated by: Francisco Javier BASSETT Interpreted: Merry Robison MD on 09/23/2016 at 9:45 Transcribed by: JIM on 09/23/2016 at 9:45 Approved by: Merry Robison MD, PhD on 09/23/2016 at 16:56 X-RAY CHEST ONE VIEW, PORTABLE IMPRESSION: 1. Support lines and tubes as above. 2. Abnormal opacity within the right lung and the lung bases consistent with pulmonary edema and/or diffuse bilateral inflammatory process. Recommend clinical correlation and followup. Dictated by: Francisco Javier BASSETT Interpreted: Jammie Drake MD on 09/22/2016 at 9: 13 . 12-lead ECG EKG: Normal sinus rhythm at 116 bpm, left axis deviation present, QTC 478, mild widening of QRS complex (104 ms). . Additional Diagnostics EEG IMPRESSION: This electroencephalogram performed in the comatose state is abnormal. The slow background activity is suggestive of moderate cerebral cortical dysfunction/encephalopathy. This is a nonspecific finding and may be seen in a wide variety of different clinical conditions, including secondary to medication effect, as well as medical conditions such as toxic metabolic, hypoxic, inflammatory, autoimmune and infectious states. If clinically indicated, a repeat study performed off all fall sedative agents may be helpful. The propofol was held before this electroencephalogram was performed. Clinical correlation is advised. Seamus Cee MD 10/04/16 1904 . Assessment & Plan Magdaleno Villegas is a 76-year-old male with a past medical history significant for CLL currently on chemotherapy, COPD, recent visit to [facility] in [place], and hypertension who was a direct transfer to [facility] from [facility] due to septic shock secondary to presumed aspiration pneumonia now being treated for DANY, staphylococcus bacteremia, candiduria with suspected disseminated candidiasis and disseminated zoster. Hospital day #17. Impression: 1. DANY on CKD due to nonoliguric ATN and sepsis. 2. Hypervolemic hypernatremia. 3. Anasarca with low effective circulating volume. 4. Septic shock secondary to staphylococcus bacteremia. 5. Candiduria with suspected disseminated candidiasis. 6. Disseminated zoster. 7. History of CLL. Plan: - Continue IV Lasix gtt. - Continue IV 25% albumin q 12 hr. - Try to limit sources of fluid administration as much as possible as patient is net +33 L. From a renal standpoint he is close to baseline. We will sign off. Please feel free to contact us with any questions. . GI Prophylaxis: H2 germaine VTE Prophylaxis: Sub-Q Heparin (Unfractionated) VTE Mechanical Devices: Intermittant Pneumatic CD Resuscitation Status: CPR: Attempt Resuscitation Limited Interventions: Cardioversion/Defibrillation, Intubation w Mech Vent, Medications and IV Fluid Attending Statement Nephrology attending: Patient was seen and examined and the case thoroughly discussed with the internal medicine resident. I have reviewed her note and agree with what his panretinal along with the therapeutic plan. At this point I feel that patient's renal function is back to baseline and we will sign off. Should any changes occur or if you have any questions please do not hesitate to ask. Zoe Wise DO Oct 07, 2016 11:10 Tres Jefferson DO Oct 07, 2016 15:11
--- NOTE | 2016-10-07 11:25 | PROG NOTE ---
[address] [address] PROGRESS NOTE PATIENT: BRITTNEY CASILLAS : 1940 MR#: [id number] ADMIT: 09/21/2016 JOB ID: [id number] DATE: 10/07/2016 PULMONARY CRITICAL CARE PROGRESS NOTE: A 76-year-old man with CLL, admitted with septic shock, varicella zoster meningoencephalitis, MSSA bacteremia, and respiratory failure. Patient seen and evaluated with resident physician, Alfreda Allred DO. Please refer to her separate detailed note for additional information. The following is an addendum. INTERVAL HISTORY: He remained on Lasix drip 5 mg an hour yesterday and diuresed well but he has only net even. He remains hypertensive. He has been getting labetalol IV pushes p.r.n. REVIEW OF SYSTEMS: Unable to obtain. PHYSICAL EXAMINATION: Vital signs reviewed. Temperature 37.3. T-max 38.3 overnight. Pulse 99, respirations 26, BP 177/77, sats 95% on 50% FiO2 and 12 cm of PEEP. General: Intubated, sedated, unresponsive. Skin has multiple crusted lesions from healing vesicles. Chest: Clear to auscultation. He does have diffuse anasarca. LABORATORIES: Reviewed. Hemoglobin stable at 7.2. No white count. Coags show no evidence of DIC. Sodium stable at 148, creatinine down to 1.13. Cultures, no new growth. IMAGING: Chest x-ray shows persistent left-sided effusion plus left basilar atelectasis. ASSESSMENT AND RECOMMENDATIONS: 1. Septic shock -- resolved. 2. Varicella zoster meningoencephalitis. 3. Methicillin-sensitive Staphylococcus aureus bacteremia. 4. Acute respiratory failure, on mechanical ventilation since September 22. 5. Acute kidney injury -- resolved. 6. Suspected candidemia based on positive urine and sputum cultures -- on therapy. No positive blood cultures. 7. Chronic lymphocytic leukemia. 8. Anemia of chronic disease. A 76-year-old man with chronic lymphocytic leukemia presenting which shingles and PCR-confirmed varicella zoster meningoencephalitis and methicillin-sensitive Staphylococcus aureus bacteremia. With Lasix drip yesterday at 5 mg an hour, he is only about net even. We will increase the Lasix drip to 10 mg an hour and try to get him more net negative. Blood pressure is still quite high despite the metoprolol and p.r.n. labetalol. I am hoping the Lasix will help but I think in the meantime we can also increase the dose of metoprolol to 25 q.8 h. Continue current antibiotics including daptomycin to cover methicillin-sensitive Staphylococcus aureus bacteremia and coag-negative staphylococcus blood culture that was positive recently. His central line has been removed, and tip was sent for culture. Micafungin is being continued as well. Anemia stable with no signs of ongoing bleeding, and disseminated intravascular coagulation workup negative. Sedation is currently stable at 25 of fentanyl and propofol as well. I am hoping he can tolerate weaning this further after we have diuresed him somewhat. He remains on 12 cm of PEEP and 50% FiO2, with evidence of pulmonary edema on imaging. I am hoping with diuresis this will improve as well. I am concerned about a change in his secretions and the low-grade temperature described above. Sputum culture is pending looking for VAP. He does not have any change in oxygenation or new chest x-ray infiltrates, however. We could consider bronchoscopy if he continues to have fevers, and sputum culture is unrevealing. He is on appropriate deep venous thrombosis and gastrointestinal prophylaxis, and he is a FULL CODE. Tolerating tube feeds. CRITICAL CARE TIME: 60 minutes.
[2016-10-07] MEDS: Albumin 25% 100 ML IV SCH ×2 (13:06→23:03)
--- NOTE | 2016-10-07 13:16 | NUR ---
NUTRITION FOLLOW-UP ASSESS: 76 YO M admitted to CCU with acute hypoxic respiratory failure, severe sepsis, MSSA pneumonia and disseminated zoster with meningoencephalitis. Pt remains ventilator dependent. Flush reduced from 100 ml q 1 hr to 75 ml q 1 hr per MD. PMHX: CLL with poor prognosis, HTN, hypercholesterolemia, GERD, cataracts, COPD. LABS: Reviewed. Na 148, CO2 30, BUN 48, Glu 203, Ca 7.9 MEDS: Insulin, Albumin, Fentanyl, Propofol at 30.7 ml/hr providing 810 kcal/day, Precedex, Pressor, Senna, Colace. GI: Stool via FMS. SKIN: Mario 12, Disseminated zoster, non-stageable pressure injury on his left ischium. WT: 136.1 kg, BMI: 45.6 kg/m2, Admit wt: 116.0 kg (BMI 38.9 kg/m2), IBW: 70 kg NUTRITION SUPPORT: Jevity 1.5 @ goal rate 75 ml/hr providing 2,475 kcal and 105 g protein (100% estimated needs). ESTIMATED NEEDS: BMI (based on Admit Wt; re-estimated 10/07) Calories: 2189-1475 kcal/day (20-22 kcal/kg Admit BW) Protein: 85-105 g/day (1.2-1.5 g/kg IBW) Fluid: 2400 ml/day (~1 ml/kcal/d) NUTRITION DIAGNOSIS: 1) Inadequate oral intake related to decreased ability to consume sufficient energy as evidenced by current vent / NPO status - IMPROVED WITH ENTERAL FEEDING AT GOAL RATE. NUTRITION INTERVENTION: 1) Recommend new goal rate w/ Jevity 1.5 @ 50 ml/hr + 1 packet of Prosource BID + 75 ml q 1 hrs, to provide 1650 kcal/d (2460 w/ propofol), 92 g/d protein, and 2636 ml/d H2O, meeting 100% of est needs. MONITOR/EVALUATE: TF tolerance, vent/NPO status, wt, labs, GI, POC, nutrition status. Follow per high nutrition risk guidelines.
--- NOTE | 2016-10-07 14:17 | PCM.PALLBR ---
Palliative Care Recommendation 78-year-old gentleman admitted with staphylococcal sepsis and disseminated VZV, including meningoencephalitis, in the setting of recurrent poor prognosis CLL. Remains intubated and mechanically ventilated without significant neurologic recovery to this point. Palliative medicine consulted to assist family members and determination of goals of care. Summary of palliative recommendations: Palliative Plan: -Symptom management (Pain/other) - Patient is intubated and sedated. Weaned off Precedex earlier; nursing continues to taper fentanyl and propofol drips as able - Patient in no obvious distress at this time- other symptomatic management per medical/critical care teams The goal continues to be to decrease sedation as able, monitoring for improved mentation. A wait and see approach will be required, and the pulmonary team will decide on a tracheostomy with family later in the week depending on how the patient's mentation status evolves with time. See below for further details of my lengthy conversation with his ywfefqyh-st-thb Perlita today regarding these matters. -DPOA/Advanced Directives/POLST - POLST completed by the patient and his PCP/MD, on September 18, 2016 (prior to this admission) indicating full code/full aggressive care. This remains in effect, though today I encouraged Perlita to talk with other family members about transitioning to DNR status (even with other continuing aggressive care) given his overall prognosis and very poor chances of survival to independent life should he suffer a cardiac arrest/require CPR -Family/emotional support - 4 sons Duane, Bill, Piyush and Juan. Duane's is Perlita. Niece Nakia. -Spiritual support - not discussed at this time Family Goals: 1. Family wants to be told the truth about his illness, even if it is unpleasant. 2. Family would like to be told prognosis when it can be predicted, to better guide treatment decisions. 3. Patient would not want to be bed bound and unable to care for himself Additional Medical Diagnoses with primary management by Hospitalist team include : 1. Staphylococcus bacteremia, present on admission. Active. 2. Septic shock requiring 3 pressors support, present on admission. Resolved. 3. Disseminated zoster, present on admission. Treatment completed. 4. Acute hypoxic respiratory failure, present on admission. Active. 5. Febrile, not present on admission. Active. 6. Acute kidney injury, present on admission. Improving. 7. Hypernatremia, not present on admission. Active. 8. Chronic lymphocytic leukemia, present on admission, undergoing oral chemotherapy prior to hospitalization. 9. Acute encephalopathy, present on admission, active. 10. Decubitus ulcer, present on admission, active. 11. 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 12.Anemia requiring transfusion Problems: End of Life Preferences Full code status remains in effect Goals of Care 1. Family wants to be told the truth about his/her illness, even if it is unpleasant. 2. Family would like to be told prognosis when it can be predicted, to better guide treatment decisions. 3. Patient would not want to be bed bound and unable to care for himself Disposition To be determined Resuscitation Status Resuscitation Status: CPR: Attempt Resuscitation Limited Interventions: Cardioversion/Defibrillation, Intubation w Mech Vent, Medications and IV Fluid POLST Updates/Changes Previous POLST?: Yes POLST Last Review Date: Oct 05, 2016 Antibiotics: Determine Use or Limitations Artificially Admin Nutrition: Trial Period Tube Feeding POLST Discussed with: Spouse/Other (Daughter in Law Perlita and Niece Nakia) POLST Review Outcome: No Change . Advanced Care Planning Address: Code status change Pain: None Symptom management: Agitation, Delirium Total time 60 minutes; >50% face to face with patient and family, providing counselling regarding plans and recommendations, and in care coordination with his medical teams. Of the above total time, 30 minutes counseling for advanced care planning with the patients family copies to: Bonifacio Youngblood MD; Biju Landry DO Palliative Brief Note Date of Service Oct 07, 2016 . Returned to reevaluate patient. Prior to visiting, reviewed his updated records in the EMR in detail. I also spoke with his bedside nurse and with his hospitalist and participated as his case was reviewed in detail on morning critical care rounds. In the afternoon, returned to reevaluate patient and at that time spoke at length with his nbbiesft-ix-brq Perlita at bedside. His grandson also arrived during our conversation. Patient remains sedated/unresponsive. When sedation is lightened, he previously became quite agitated, but his nurse is having some success in titrating fentanyl and propofol down today. Vital signs are noted. Skin is darkly complected, warm and dry. Head and neck exam remarkable for diffuse puffiness/edema. Lungs with scattered crackles anterolaterally; no wheezes. Heart sounds distant and regular. Abdomen is obese, without apparent tenderness or peritoneal signs. Extremities diffusely puffy/edematous. Neurologic exam is limited. Laboratory and imaging studies reviewed in detail. Talked with his grkuzfqi-fc-zoi at length. She says the patient's sons remain committed to aggressive ongoing care. They remain very hopeful that the patient will recover fully to the level of independence that he had prior to this illness. Perlita says that she is a less hopeful/perhaps more realistic. She realizes that the longer the patient continues to be encephalopathic, less likely that he will recover. She also appreciates that his compromised immune system, advanced age, etc. all reduce his chances of recovery. Even if he survives this, she also recognizes that he has a poor prognosis CLL with very limited chances for long-term survival. She had questions about plans of care for the next several days, particularly about the possible need for tracheostomy. We reviewed the indications for tracheostomy. She noted that family members continue to hope for some "light bulb moment" or change that will make their decision making easier (or, more honestly, allow them to not have to make a decision) but I gently advised her that such was not likely, barring an acute cardiac event. This then led to further conversation about his CODE STATUS and we talked about possible transition to DO NOT RESUSCITATE, while continuing other care. She is going to talk with family members further about this and we will talk more about it in the coming days. I also suggested that she and the other family members talk carefully about the decision to proceed with tracheostomy, as that will be another significant decision point in his care in the coming days. She said that at this time she is pretty certain that her and otyzfcl-uw-bkh will want to have a tracheostomy done and continue with very aggressive care. Shar Love MD Oct 07, 2016 14:17
[2016-10-07] MEDS: Labetalol 5 mg/mL 4 mL Inj IVPUSH PRN ×2 (16:35→23:10)
--- NOTE | 2016-10-07 18:19 | NUR ---
Sedation/Ventilation... Has had no resp distress noted this shift. Has been noted to have thick bright yellow ETT secretions. MD updated and sputum and blood cultures obtained. Has had sedation vacations throughout the shift with weaning of Propofol and Fentanyl. Noted to open eyes slightly to voice, but otherwise remains flaccid with minimal response to stimulous despite low doses of sedatives. Noted to be more hypertense with lowered sedation, yet HR, and resp rate remain stable. Has received prn dose of Labetolol with minimal effect. Continues to marixa tube feeds well. Still having liquid stools per FMS. Mipelex to buttock removed due to leakage of stool around tube. Family at the bedside and updated on status and plan of care.
[2016-10-07] MEDS: Dexmedetomidine 400 mCg/100 mL 400 MCG in IV Premix 1 EACH IV SCH (18:38)
[2016-10-07] MEDS: Insulin GLARgine 100 Unit/mL Syringe SUBQ SCH (20:50)
[2016-10-07] MEDS: Sodium Chloride LOK Flush 10 mL Syringe IVFLUSH PRN (23:11)
[2016-10-08] VITALS (11 sets, daily range): BP systolic 128–200; BP diastolic 54–100; PULSE 88–121; RESP 18–30; O2SAT 93–97
[2016-10-08] MEDS: Chlorhexidine 0.12% 15 mL Oral Solution MT SCH ×6 (00:04→20:42)
[2016-10-08] MEDS: Propofol Inj 1,000,000 MCG in IV Premix 1 EACH IV SCH ×2 (00:04→06:35)
[2016-10-08] MEDS: Insulin Human REGular 300 Unit/3 mL Inj SUBQ SCH ×4 (02:16→22:00)
[2016-10-08] MEDS: Labetalol 5 mg/mL 4 mL Inj IVPUSH PRN (03:20)
[2016-10-08] MEDS: Furosemide Inj 100 MG in 0.9% Sodium Chloride 90 ML IV SCH ×2 (04:31→18:55)
[2016-10-08 04:42] LABS: Mean Corpuscular Hemoglobin 28.7 pg (27.0-35.0); Mean Corpuscular Volume 94.9 fL (81-100); Platelet Count 126 bil/L (150-400)
[2016-10-08 05:09] LABS: BASOPHILS % (AUTO) 1 % (0-3); EOSINOPHILS % (AUTO) 3 % (0-5); MONOCYTES % (AUTO) 10 % (4-12); NEUTROPHILS % (AUTO) 56 % (40-74)
[2016-10-08 05:22] LABS: Magnesium 1.7 mg/dL (1.6-2.6); Phosphorus 4.1 mg/dL (2.5-4.9)
--- NOTE | 2016-10-08 05:36 | ABG ---
DateTimeAnalyzed 05:31:00 -_ pH ____7.414 - pCO2 ___53.3__ -mmHg pO2 ___68.7__ -mmHg HCO3- ___33.4__ -mmol/L ABE ____8.4__ -mmol/L tHb ____7.5__ -g/dL O2Hb ___91.3__ -% COHb ____2.9__ -% MetHb ____1.0__ -% sO2 ___95.0__ -% FIO2 ___21.0__ -% PEEP ___12.0__ -cmH2O Set_RR ___24.0__ -b/min Vt __480.0__ -L Drawn By MK - Date/Time Notified____ 05:35:00 -_ Oxygen Device 1 VENTILATOR - B 763 -mmHg tO2 ____9.7__ -Vol% Jeevan test N/A -
--- NOTE | 2016-10-08 07:14 | NUR ---
P) Respiratory/Cardiac /fever Pt. continues febrile at night, T-max 37.9c orally, lungs coarse and decreased bilat., thick, yellow phlegm suctioned from ET tube. Cardiac rhythm sinus/sinus tach. BP's continued on the high end, IV labetelol given x2 for systolics greater than 170. I) Meds per 's order, turning q2h, and floating heals, lots of discussion with family regarding code status change, they plan a family meeting this evening to discuss withdrawing ET tube. E) Resting quietly, no longer moving eyes to voices, not following any requests. Some grimacing during oral care and turns.
[2016-10-08] MEDS ORDERED: Potassium Chloride 20 mEq/15 mL Oral Soln(K 3 - 3.7 & Creat < 2) TUBE ONE (08:05)
[2016-10-08] MEDS: 0.9% Sodium Chloride 250 ML IV SCH (08:18)
[2016-10-08] MEDS: LacriLube S.O.P. 3.5 Gm Ophthalmic Ointment BOTH_EYES SCH ×2 (08:18→20:42)
[2016-10-08] MEDS: Famotidine Inj 20 MG in IV Premix 1 EACH IV SCH ×2 (08:19→20:42)
[2016-10-08] MEDS: Senna Leaf Extract 528 mg/15 mL Syrup PO SCH ×2 (08:22→21:14)
[2016-10-08] MEDS: Heparin 5,000 Unit/mL Inj SUBQ SCH ×2 (08:23→20:44)
[2016-10-08] MEDS: DAPTOmycin Inj 750 MG in 0.9% Sodium Chloride 50 ML IV SCH (08:24)
[2016-10-08] MEDS: Micafungin Inj 150 MG in Dextrose 5% 100 ML IV SCH (08:25)
--- NOTE | 2016-10-08 08:35 | PROG NOTE ---
[address] [address] PROGRESS NOTE PATIENT: BRITTNEY CASILLAS : 1940 MR#: [id number] ADMIT: 09/21/2016 JOB ID: [id number] DATE: 10/08/2016 INFECTIOUS DISEASE FOLLOW UP NOTE: REASON FOR FOLLOW UP: Disseminated varicella zoster virus including encephalitis, MSSA bacteremia, poor prognosis CLL, and prolonged ventilator dependent respiratory failure. INTERVAL HISTORY: Overnight there has been attempts to back off on the patient's sedation to see if his mental status had improved but this has not happened. At this point, the patient remains almost completely unresponsive despite being on fairly low doses of propofol and fentanyl. His antibiotics have now been revised and he is only on daptomycin for his MSSA bacteremia and micafungin for possible disseminated fungemia. This case was discussed in great detail with the patient's family at the bedside this morning. We discussed the prognosis as well as what may be coming up in terms of the need to perform tracheostomy and a feeding tube as well as other measures. The family indicated potential interest in reconsidering the goals of care in the near future. PHYSICAL EXAMINATION: Reveals a basically unresponsive gentleman lying supine in his ICU bed. He is being actively ventilated 50% FiO2 and 12 of PEEP which is the same as yesterday. He is 37.1 degrees now. T max the last 24 hours 37.9. Pulse is 88. Respiratory rate is ventilator dependent. Blood pressure 129/58. He is saturating well. Examination of the eyes reveals his pupils are now about 7 mm bilaterally in response and react to light. He does not seem to have any spontaneous extraocular movements, however. His hemorrhagic conjunctivitis is much improved. His oral endotracheal tube, oral gastric tube in good position. All zoster lesions have crusted. There is still an erythematous rash around both wrists which I believe is due to his restraints. Additionally, the patient has the macular erythematous rash over his buttocks and back. The patient's lungs are relatively clear to auscultation this morning. Cardiac tones without new murmur. The patient's abdomen is soft and nontender. The scrotum is enlarged. A Prado catheter is present. The patient's extremities are warm and well perfused without evidence of soft tissue infection. LABORATORIES: Include white count 7300 today. Basically normal differential on that white count. Creatinine is 0.91. LFTs are normal. Procalcitonin 0.49 and that was done yesterday and was his lowest of the hospital stay. He started off with a procalcitonin of 31. Urinalysis on the was negative. Fungitell done recently negative at 51. Cryptococcal antigen negative. Micro studies include negative blood cultures from the . A cath tip from the is culture negative so far. Sputum with moderate polys, but mixed george. Blood cultures on the are negative. Our last positive blood culture was on the and was from the IJ line which has now been removed. Yesterday's chest x-ray was reviewed. It shows no pneumothorax. There is some mild bilateral infiltrates which have not changed much in the last few days. IMPRESSION: This patient remains ventilator dependent and is quite unresponsive now two days off acyclovir and meropenem. How much of this is a metabolic encephalopathy related to his long ICU stay and multiple insults and how much is directly due to the effects of the zoster encephalitis remains unclear at this point. The fact the patient is not awakening as we back off on his sedating agents is of concern. As of yet we have no way to do an MRI scan on the patient and a recent CT and EEG was not terribly helpful. With respect to his numerous infections, we have now completed treatment for disseminated VZV. We continue on what will probably be a 4-6 week course of daptomycin which is aimed at his MSSA bacteremia. If we could get a transesophageal echo that was normal, we could shorten that duration of MSSA therapy. We also continue with a two week course of micafungin. RECOMMENDATIONS: 1. Will continue with dapto for a planned 4-6 week course. 2. A REGINALD would be valuable here to help us decide how long to treat for the MSSA bacteremia. 3. Micafungin course will be two weeks. We could consider transition to fluconazole at any time as all isolates were Gisel albicans. 4. This case discussed with the ICU team as well as the patient's family.
[2016-10-08] MEDS: Dexmedetomidine 400 mCg/100 mL 400 MCG in IV Premix 1 EACH IV SCH (10:04)
--- NOTE | 2016-10-08 10:08 | DRSVH ---
PROCEDURE: X-RAY CHEST ONE VIEW, PORTABLE ([id number]) INDICATIONS: intubated TECHNIQUE: One view of the chest was acquired. COMPARISON: [facility], CR, XR CHEST 1VW (PORTABLE), 10/07/2016, 4:32. FINDINGS: Surgical changes and devices: Stable position of ETT, left PICC and a nasogastric tube tip is project ed beyond the GE junction. Lungs and pleura: No pneumothorax. Mediastinum: Mild edema and mid/basilar airspace opacity similar prior examination. Small pleural ef fusions. No pneumothorax. Bones and chest wall: No suspicious bony lesions. Overlying soft tissues appear unremarkable. IMPRESSION: No significant change from prior examination. Dictated by: Francisco Javier Antonio RRA Interpreted: Merry Robison MD on 10/08/2016 at 10:06 Transcribed by: JIM on 10/08/2016 at 10:07 Approved by: Merry Robison MD, PhD on 10/08/2016 at 16:26
--- NOTE | 2016-10-08 10:28 | PCM.PNMED ---
Subjective Date of Service Oct 08, 2016 Subjective PULMONARY/CRITICAL CARE PROGRESS NOTE Yesterday/Overnight: No acute events. BP remained elevated; labetalol given, with resolution. Febrile with T37.9. Today: No acute distress noted. Unable to open eyes/follow commands/respond to stimuli. Fentanyl decreased to 50, propofol 40, precedex remains off, no pressors required. Labs: Na 148, K 3.6; Mg 1.7 Info: Net IO + 44678; 24hUOP 6650mL; 24hIO - 1445 Vent: PRVC FiO2 50, PEEP 12, R 24, Vt 480 Exam Vital Signs Vital Sign - Last Date Time Temp Pulse Resp B/P Pulse Ox O2 Delivery O2 Flow Rate FiO2 10/08/16 09:44 88 150/60 95 40 10/08/16 04:00 37.1 24 Mechanical Ventilator Intake and Output 10/07/16 10/07/16 10/08/16 Cumulative From/Thru 15:00 23:00 07:00 09/21/16 19:30 - 10/08/16 06:48 Intake Total 2762 ml 2177 ml 007788 ml Output Total 4050 ml 4100 ml 49761 ml Balance -1288 ml -1923 ml 65931 ml Intake Oral 60 ml IV Total 813 ml 554 ml 25399 ml Tube Feeding 922 ml 622 ml 38106 ml Packed Cells 925 ml Tube Irrigant 1027 ml 1001 ml 56091 ml Output Urine Total 3950 ml 4050 ml 36727 ml Stool Total 100 ml 50 ml 2660 ml Gastric Drainage Total 2015 ml Chest Tube Drainage Total 390 ml # Bowel Movements 8 Exam General: Intubated and sedated; no acute distress; diffusely edematous; no responses to verbal or sternal rub stimuli HENT: ETT in place, mucus membranes dry; conjunctival erythema present Neck: Soft, obese, trachea midline by palpation; edematous Cardiac: Regular rate and rhythm; no murmurs appreciated Respiratory: Sounds faint secondary to habitus, R > L diminished sounds; no wheeze appreciated Abdomen: Soft, nontender, nondistended; obese; Moderate-severe pitting anasarca present Extremities: BLLE moderate-severe pitting edema from ankles to abdomen; BLUE moderate pitting edema noted distal extremities to trunk Lines: Left PICC; bandages dry, intact : Prado in place; urine yellow; severe scrotal edema present without evidence of breakdown at this point Skin: Warm, dry; multiple, diffuse areas of scabbed lesions without active bleeding, exudate, or erythema Neuro: Unable to fully assess secondary to intubation and sedation; not aroused to voice or sternal rub Psych: Unable to assess at this time secondary to intubation and sedation Lab and Diagnostics Result Diagram: 10/08/1642910/08/16429 Microbiology CSF positive for VZV. MRSA screen negative. Buttock culture positive for staphylococcus aureus resistant to tetracycline and bacteroides fragilis. Blood cultures 2:4 positive for staphylococcus aureus resistant to tetracycline. Sputum positive for staphylococcus aureus resistant to tetracycline. Clostridium difficile PCR negative. Fungal blood cultures x 2 pending. Urine grew yannick albicans. . X-Rays, CTs and MRIs X-RAY CHEST ONE VIEW, PORTABLE IMPRESSION: No change in multifocal pneumonia. Dictated by: Adalberto Barker M.D. on 10/04/2016 at 7:40 Approved by: Adalberto Barker M.D. on 10/04/2016 at 7:41 X-RAY CHEST ONE VIEW, PORTABLE IMPRESSION: Right thoracostomy tube. No pneumothorax or subcutaneous emphysema. Dictated by: Simona Johnson M.D. on 09/25/2016 at 18:52 Approved by: Simona Johnson M.D. on 09/25/2016 at 18:52 X-RAY CHEST ONE VIEW, PORTABLE IMPRESSION: 1. Support lines and tubes as above. 2. Bilateral pleural effusions, right greater than left. 3. Bilateral lower lung consolidation, increasing involving the right lung base and similar involving the left. Dictated by: Francisco Javier BASSETT Interpreted: Merry Robison MD on 09/23/2016 at 9:45 Transcribed by: JIM on 09/23/2016 at 9:45 Approved by: Merry Robison MD, PhD on 09/23/2016 at 16:56 X-RAY CHEST ONE VIEW, PORTABLE IMPRESSION: 1. Support lines and tubes as above. 2. Abnormal opacity within the right lung and the lung bases consistent with pulmonary edema and/or diffuse bilateral inflammatory process. Recommend clinical correlation and followup. Dictated by: Francisco Javier BASSETT Interpreted: Jammie Drake MD on 09/22/2016 at 9: 13 . 12-lead ECG EKG: Normal sinus rhythm at 116 bpm, left axis deviation present, QTC 478, mild widening of QRS complex (104 ms). . Additional Diagnostics EEG IMPRESSION: This electroencephalogram performed in the comatose state is abnormal. The slow background activity is suggestive of moderate cerebral cortical dysfunction/encephalopathy. This is a nonspecific finding and may be seen in a wide variety of different clinical conditions, including secondary to medication effect, as well as medical conditions such as toxic metabolic, hypoxic, inflammatory, autoimmune and infectious states. If clinically indicated, a repeat study performed off all fall sedative agents may be helpful. The propofol was held before this electroencephalogram was performed. Clinical correlation is advised. Seamus Cee MD 10/04/16 0434 . Assessment & Plan PULMONARY/CRITICAL CARE CONSULT NOTE - [facility] Hospital day 17 (+1 for [facility] inclusion) - [facility] Ventilator day 17 (+1 for [facility] inclusion) Mr. Villegas was emergently transferred from [facility] with severe sepsis likely secondary to aspiration PNA. He required intubation and sedation, fluid resuscitation, use of pressor agents, and paralytics. He was stabilized in the CCU, with pressor weaning, and continued ventilatory support. Infectious disease has been consulted to evaluate the source of infection, including the disseminated VZV. Chart review reveals multiple recent hospitalizations at [place] and [facility] within recent days prior to this admission for reported AMS. Imaging was performed at these facilities, and requests were placed to push images to our system and to obtain records. He currently remains stable in the CCU intubated and sedated receiving fluids, pressors, and antibiotics. Repeat CT 09/22 did not reveal any acute pathologies. Echo completed 09/22, was a difficult study, but LV was grossly unremarkable with function, and RV was mildly dilated, but unremarkable in function. Valves were not well visualized. CSF PCR confirmed the presence of zoster. S. aureus has been detected in sputum , blood, and buttock lesion, indicating a staph bacteremia; Bacteroides was found within buttock lesion as well. Infectious disease consulted and following. Nephrology was consulted to evaluate kidney function and fluid status. Recent decrease in Hb/acute anemia may be indicative of dilution, significant decreases have resulted in pRBC transfusions. Chest tube was urgently placed 09/25 secondary to rapidly progressing hypoxemia due to enlarging effusion. Estimated 1-2L drained upon tube placement, fluid yellow/ clear in color. Chest tube output decreased to zero, remains in place while mechanically ventilated. Lesions developed on bilateral wrists that appear weeping and erythematous, likely secondary to irritation from restraint and ID bracelet placement. No concern for zoster. Fevers developed 09/29-09/30, and continue intermittently. New cultures obtained. Briefly remained afebrile after abx switched from nafcillin to meropenem, but fevers returned. Ice packs and cooling measures instituted in addition to APAP IV. Fevers unlikely infectious in origin; consider neurologic or underlying clot. Copious thick, yellow secretions produced. Concern for VAP. Sputum Cx sent. Prognosis remains guarded at this time. Immediate concerns include patient's inability to be weaned off sedation and inability to arouse to stimuli. It is unclear the level of cognitive function that is present. EEG completed 10/02, noted to have comatose waveforms. Echo LTD was not able to well visualize the valves. MR brain was unable to be completed due to question of the exact compatibility of the portable ventilator with the MRI machine and ability to maintain medication pushes throughout the procedure. CT brain wo contrast was completed in lieu, no obvious sign of ischemic injury or hemorrhage noted. Palliative care has kindly consulted and will be crucial in navigating family understanding and expectations. Topic of tracheostomy was breached, and family goals at this time are to aggressively decrease sedation and assess mentation later this week. Family discussion 10/08 involved discussions on ways to proceed. Family states understanding that complete recovery is highly unlikely, and if he were able to recover neurologically at any level, it would lead to a prolonged recovery with return far below previous baseline. It was discussed, and agreed, to wait through the weekend, and re-assess with minimal to zero sedation. Assessments - Acute hypoxemic respiratory failure; ongoing - Severe sepsis likely secondary to aspiration PNA, bacteremia, and disseminated zoster; therapy completed - Suspected aspiration PNA vs zoster pneumonitis; therapy completed - Disseminated zoster with meningoencephalitis; therapy completed - Staph bacteremia; under therapy - DANY; improving - Normocytic normochromic anemia, acute; stable; s/p total 3U pRBC - Hypertensive urgency - UTI secondary to Yannick - CLL on oral chemotherapy - Intermittent fevers: Neurological vs infectious vs underlying clot Plan: - Continue mechanical ventilation, decreasing FiO2, PEEP as tolerated: FiO2 decreased to 40, if tolerated, then decrease PEEP from 12 to 10 - Decrease sedation as tolerated as day progresses; goal to have all sedation off - Replenish electrolytes prn - ABGs in am - Upright CXR in am - Abx/antivirals per ID: daptomycin, micafungin - Neupogen per oncology; discontinued - Recommend to concentrate medications as much as possible, with D5W as fluid - Med rec requested to be completed; chart review reveals pt on chronic BP/HR medications; re-initiate cautiously; defer to primary team - Palliative care consultation for family discussions and goals of care; tentative meeting evening 10/08 with primary team - Recommend initiation of lasix gtt for better diuresis; Increase in rate to 10 , continue - Increase metoprolol to 50mg BID - Labetalol 10-20mg IV prn sysBP > 170 - Venous duplex BLUE to eval DVT - Triglyceride levels q3d secondary to continued propofol use - Attempt to proceed with MR study, as patient is more stable at this time, and ventilator requirements have decreased; anesthesia not required - Nutrition: Tube feeds at goal; free water flushes increased to 100mL/hr - DVT: Hep q8 - GI: H2B Thank you for this consult, we will happily follow along with you at this time. If you have any additional concerns or would like us to assist in any other way , please do not hesitate to ask. Total time: 60 minutes Pain Evaluation: Adequate Pain Control GI Prophylaxis: H2 germaine VTE Prophylaxis: Sub-Q Heparin (Unfractionated) VTE Mechanical Devices: Intermittant Pneumatic CD Resuscitation Status: CPR: Attempt Resuscitation Limited Interventions: Cardioversion/Defibrillation, Intubation w Mech Vent, Medications and IV Fluid Attending Statement I have seen and examined this patient with the resident physician. Vital signs , labs, imaging have been reviewed. I agree with the assessment and plan above. Please refer to my separately dictated progress note for any modifications to above. Maira Kenyon M.D. Pulmonary and Critical Care medicine Pager [phone] Alfreda Allred DO Oct 08, 2016 10:20 Maira Kenyon MD Oct 08, 2016 11:21
--- NOTE | 2016-10-08 10:47 | DRSVH ---
PROCEDURE: US VENOUS ARM DUPLEX, BILATERAL INDICATIONS: concern for DVT swelling TECHNIQUE: Real-time imaging, as well as color and pulse Doppler interrogation, was performed of both upper extr emity deep veins from the inferior neck to the antecubital fossa. COMPARISON: None. FINDINGS: The internal jugular veins, visualized portions of the subclavian veins, axillary veins, a nd brachial veins are free of intraluminal thrombus. Where physically possible, the veins are normal ly compressible. Color and pulse Doppler demonstrate normal intraluminal flow, with expected phasici ty and pulsatility. Additional scanning of the cephalic and basilic veins of the superficial system demonstrate normal compressibility, without thrombus. IMPRESSION: No venous thrombosis identified within the upper extremities, although the left basilic v ein within the mid and distal upper arm is suboptimally visualized. Dictated by: Francisco Javier Antonio [facility] Interpreted: Merry Robison MD on 10/08/2016 at 10:46 Transcribed by: JIM on 10/08/2016 at 10:47 Approved by: Merry Robison MD, PhD on 10/08/2016 at 16:25
--- NOTE | 2016-10-08 11:37 | PROG NOTE ---
[address] [address] PROGRESS NOTE PATIENT: BRITTNEY CASILLAS : 1940 MR#: [id number] ADMIT: 09/21/2016 JOB ID: [id number] DATE: 10/08/2016 PULMONARY CRITICAL CARE PROGRESS NOTE: The patient was seen and evaluated with resident physician, Senia Allred. Please refer to her separate detailed note for additional information. The following is an addendum. The patient is a 76-year-old man with CLL admitted with varicella zoster meningoencephalitis and MSSA bacteremia, septic shock and respiratory failure. INTERVAL HISTORY: He diuresed well yesterday with 2 L net negative and his oxygenation is slightly improved with that. He continues to have a low-grade temperature of 37.9. REVIEW OF SYSTEMS: Unable to obtain. PHYSICAL EXAMINATION: Vital signs reviewed. Temperature 37.7, pulse 88, respirations 24, BP 129/58, sats 95% on 50% FiO2 and PEEP of 12 cm. General: Intubated on minimal sedation, currently not responding. Chest: Clear to auscultation. Skin with multiple lesions which are vesicles with scabbing. LABORATORIES: Reviewed. WBC 7.3. Chemistry also reviewed. Creatinine is coming down at 0.9. Sodium stable at 148. Cultures: No new growth. Sputum culture is negative from yesterday. Chest x-ray actually shows improvement, especially in what appears to be a left-sided pleural effusion. Arterial blood gas shows pH of 7.4, pCO2 of 53, pO2 of 68, bicarbonate at 33. ASSESSMENT AND RECOMMENDATIONS: 1. Septic shock-resolved. 2. Acute respiratory failure on mechanical ventilation since September 22. 3. Varicella zoster meningoencephalitis. 4. Methicillin-sensitive Staphylococcus aureus bacteremia. 5. Acute kidney injury-resolved. 6. Volume overload-on diuresis. 7. Suspected candidemia based on positive urine and sputum cultures-on micafungin but no positive blood cultures. 8. Chronic lymphocytic leukemia. 9. Anemia of chronic disease. A 76-year-old man with CLL presenting with varicella zoster meningoencephalitis and MSSA bacteremia with respiratory failure and septic shock. He is tolerating diuresis well. Currently on Lasix drip at 10 mg an hour and is net 2 L negative with that. His oxygenation appears to have improved as well with this so we will try weaning his FiO2 and PEEP from 50% to 40% and 12 cm to 10 cm if tolerated. Will continue diuresis today. His electrolytes appear okay with diuresis and his kidney function is actually improving. His bicarbonate, however, is going up with a contraction alkalosis. We will watch this and consider adding Diamox if his alkalosis becomes significantly worse. From a sedation and encephalopathy standpoint, nursing staff has him down to minimal sedatives including propofol at 20 and fentanyl only at 10 mcg and the patient is tolerating this fine. I have not seen any neurological response yet, but given the duration of his sedative infusions and his renal function during this time, it may still take a few days. The patient's family apparently spoke to the Palliative Care Dr. Love yesterday and made a decision to transition his code status to DNR in the event of cardiac arrest. He is intubation okay at this time. We spoke again today with the [id number] and the niece at length about decisions ahead of us including continuing life support measures, tracheostomy, etc. I do think he has made a little bit of progress from a respiratory standpoint, so we can certainly hold off on the trach decision. However, bigger decisions would be whether to continue the life support in the event of absence of neurologic recovery. At this point, our goal is to try to do another MRI tomorrow to see if there has been any significant damage secondary to varicella zoster. We will minimize or transition off all sedative drips and see if he starts to wake up over the next few days. Similarly, we will try to wean his FiO2 and PEEP over the next few days and see if he would tolerate a spontaneous breathing trial. Depending on the progress we make, we told the family that we may have enough information to make a decision regarding next steps by Wednesday or Wednesday. I will keep talking to them every day and Dr. Love was present for this conversation today. The patient is DNR now. CRITICAL CARE TIME: 100 minutes.
--- NOTE | 2016-10-08 13:35 | PCM.PALLBR ---
Palliative Care Recommendation 78-year-old gentleman admitted with staphylococcal sepsis and disseminated VZV, including meningoencephalitis, in the setting of recurrent poor prognosis CLL. Remains intubated and mechanically ventilated without significant neurologic recovery to this point. Palliative medicine consulted to assist family members and determination of goals of care. Summary of palliative recommendations: Palliative Plan: -Symptom management (Pain/other) - Patient is intubated and sedated. Weaned off Precedex earlier; and by midday today had been weaned off fentanyl and propofol as well. More awake, but no response to commands and no meaningful interaction yet. - Patient in no obvious distress at this time- other symptomatic management per medical/critical care teams The goal continues to be to monitor for improved mentation while continuing other medical supportive care. At this time, the consensus plan is to continue current support and treatment through the weekend and then revisit progress and plans prior to considering tracheostomy. See below for further details of lengthy conversation with his [id number] Perlita and constance Yee today regarding these matters. -DPOA/Advanced Directives/POLST - Per family decision on the evening of 10/07/16, now DO NOT RESUSCITATE - Previous POLST completed by the patient and his PCP/MD, on September 18, 2016 indicated patient's wishes for aggressive resuscitation, but family members are all in agreement that if it appears he would be permanently cognitively impaired and/or SNF-bound/unable to be physically active and independent, that the patient would not wish this, and it was in recognition of this that the family adjusted his CODE STATUS. -Family/emotional support - 4 sons Duane, Bill, Piyush and Juan. Duane's is Perlita. Constance Yee. -Spiritual support - not discussed at this time Family Goals: 1. Family wants to be told the truth about his illness, even if it is unpleasant. 2. Family would like to be told prognosis when it can be predicted, to better guide treatment decisions. 3. Patient would not want to be bed bound and unable to care for himself Additional Medical Diagnoses with primary management by Hospitalist team include : 1. Staphylococcus bacteremia, present on admission. Active. 2. Septic shock requiring 3 pressors support, present on admission. Resolved. 3. Disseminated zoster, present on admission. Treatment completed. 4. Acute hypoxic respiratory failure, present on admission. Active. 5. Febrile, not present on admission. Active. 6. Acute kidney injury, present on admission. Improving. 7. Hypernatremia, not present on admission. Active. 8. Chronic lymphocytic leukemia, present on admission, undergoing oral chemotherapy prior to hospitalization. 9. Acute encephalopathy, present on admission, active. 10. Decubitus ulcer, present on admission, active. 11. 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 12.Anemia requiring transfusion Problems: End of Life Preferences DO NOT RESUSCITATE in the event of acute cardiac event Goals of Care 1. Family wants to be told the truth about his/her illness, even if it is unpleasant. 2. Family would like to be told prognosis when it can be predicted, to better guide treatment decisions. 3. Patient would not want to be bed bound and unable to care for himself Disposition To be determined Resuscitation Status Resuscitation Status: Limited Interventions (DO NOT RESUSCITATE- no CPR and no defibrillation) Limited Interventions: Intubation w Mech Vent, Medications and IV Fluid POLST Updates/Changes Previous POLST?: Yes POLST Last Review Date: Oct 05, 2016 Antibiotics: Determine Use or Limitations Artificially Admin Nutrition: Trial Period Tube Feeding POLST Discussed with: Spouse/Other (Daughter in Law Perlita and Niece Nakia) POLST Review Outcome: No Change . Advanced Care Planning Address: Code status change, Comfort care Pain: None Symptom management: Agitation, Delirium Total time 55 minutes; >50% face to face with patient and family, providing counselling regarding plans and recommendations, and in care coordination with his medical teams. Of the above total time, 20 minutes counseling for advanced care planning with the patient's family, reviewing resuscitation wishes, etc. copies to: Bonifacio Youngblood MD; Biju Landry DO Palliative Brief Note Date of Service Oct 08, 2016 . Returned to reevaluate patient. Prior to visiting, participated in critical care will rounds with medical/critical care teams, spoke with his hospitalist and critical care physician as well as his bedside nurse. Also spoke with his [id number]-doa Perlita and his niece Nakia at bedside after rounds. At that time, I accompanied Dr. Kenyon of critical care and other medical team members as they reviewed the patient's case with family members. Returned later in the morning and reexamined him. At that point, he had been off of his propofol and fentanyl and was more awake, though still would not follow commands or interact in any meaningful way. Spoke with his nurse further at that time. On exam, heavyset elderly gentleman lying in bed, intubated, eyes open but otherwise not interactive. Vital signs noted. Significant hypertension with BP greater than 230/120. Skin is darkly complected, warm and dry. Multiple seborrheic keratoses. HEENT exam otherwise without acute focal findings. Lungs clear anteriorly, heart sounds regular and distant, abdomen obese and without apparent tenderness or peritoneal signs. All extremities with diffuse puffiness and edema. Did not respond to any verbal commands to move any of his extremities but nurses had actually briefly had him sitting up. Laboratories and imaging studies reviewed in detail. Dr. Kenyon reviewed his status with the family and answered their questions. Respiratory status was moderately improved today. That, as well as his continued progress in weaning sedation (later reinforced by his increasing wakefulness) led to decision between family and medical team to continue present support through the weekend, not proceeding with tracheostomy before next week. If he showed continued improvement, particularly if he showed meaningful neurologic/cognitive recovery, then family would consider ongoing aggressive care. If, however, he showed no evidence of cognitive improvement and/or remained otherwise medically critically ill, family was beginning to consider transition to comfort care. In any case, after our discussions yesterday, family had made the decision to transition to DO NOT RESUSCITATE status and this was confirmed again today. Shar Love MD Oct 08, 2016 13:35
--- NOTE | 2016-10-08 13:47 | PCM.PNMED ---
Subjective Date of Service Oct 08, 2016 Amy Villegas is a 76-year-old male with CLL currently on chemotherapy with past medical history significant for COPD who was transferred from [facility] due to septic shock and respiratory failure. Currently being treated for staph bacteremia, disseminated zoster, and Yannick albicans. Hospital day 18. Vent day 18. Overnight: Tmax of 37.9. Blood pressures elevated with systolics in low 200s. Two doses of labetalol given with appropriate effect. Discussion with patient' s 2 sons with agreement to change patient's CODE STATUS to DNR/DNI. Today: Patient's sedation decreased: propofol 20 and fentanyl 10. No purposeful movements or responses. Thick yellow secretions from ETT continue. ROS is not obtainable. Exam Vital Signs Vital Sign - Last Date Time Temp Pulse Resp B/P Pulse Ox O2 Delivery O2 Flow Rate FiO2 10/08/16 04:10 88 129/58 95 50 10/08/16 04:00 37.1 24 Mechanical Ventilator Intake and Output 10/07/16 10/07/16 10/08/16 Cumulative From/Thru 15:00 23:00 07:00 09/21/16 19:30 - 10/08/16 06:48 Intake Total 2762 ml 2177 ml 877900 ml Output Total 4050 ml 4100 ml 17921 ml Balance -1288 ml -1923 ml 38436 ml Intake Oral 60 ml IV Total 813 ml 554 ml 32901 ml Tube Feeding 922 ml 622 ml 77780 ml Packed Cells 925 ml Tube Irrigant 1027 ml 1001 ml 37326 ml Output Urine Total 3950 ml 4050 ml 34843 ml Stool Total 100 ml 50 ml 2660 ml Gastric Drainage Total 2015 ml Chest Tube Drainage Total 390 ml # Bowel Movements 8 Exam General: Intubated and sedated; no acute distress; no responses to stimuli HEENT: ETT in place Neck: RIJ removed and skin without erythema. Cardiac: Regular rate and rhythm, no murmurs appreciated Respiratory: Faint crackles at bases bilaterally; no wheezes Abdomen: Soft, nontender, nondistended; obese Extremities: Bilateral lower extremity pitting edema and dependent sacral edema. : Prado and FMS in place, scrotal edema present. Skin: Multiple scabbed, healed lesions noted on abdomen and left shoulder. Neuro: Patient sedated and intubated. Psych: Patient sedated and intubated. Lines: Left PICC, ETT, OG Lab and Diagnostics Result Diagram: 10/08/1642910/08/16429 Microbiology CSF positive for VZV. MRSA screen negative. Buttock culture positive for staphylococcus aureus resistant to tetracycline and bacteroides fragilis. Blood cultures 2:4 positive for staphylococcus aureus resistant to tetracycline. Sputum positive for staphylococcus aureus resistant to tetracycline. Clostridium difficile PCR negative. Fungal blood cultures x 2 pending. Urine grew yannick albicans. . X-Rays, CTs and MRIs X-RAY CHEST ONE VIEW, PORTABLE IMPRESSION: No change in multifocal pneumonia. Dictated by: Adalberto Barker M.D. on 10/04/2016 at 7:40 Approved by: Adalberto Barker M.D. on 10/04/2016 at 7:41 X-RAY CHEST ONE VIEW, PORTABLE IMPRESSION: Right thoracostomy tube. No pneumothorax or subcutaneous emphysema. Dictated by: Simona Johnson M.D. on 09/25/2016 at 18:52 Approved by: Simona Johnson M.D. on 09/25/2016 at 18:52 X-RAY CHEST ONE VIEW, PORTABLE IMPRESSION: 1. Support lines and tubes as above. 2. Bilateral pleural effusions, right greater than left. 3. Bilateral lower lung consolidation, increasing involving the right lung base and similar involving the left. Dictated by: Francisco Javier BASSETT Interpreted: Merry Robison MD on 09/23/2016 at 9:45 Transcribed by: JIM on 09/23/2016 at 9:45 Approved by: Merry Robison MD, PhD on 09/23/2016 at 16:56 X-RAY CHEST ONE VIEW, PORTABLE IMPRESSION: 1. Support lines and tubes as above. 2. Abnormal opacity within the right lung and the lung bases consistent with pulmonary edema and/or diffuse bilateral inflammatory process. Recommend clinical correlation and followup. Dictated by: Francisco Javier BASSETT Interpreted: Jammie Drake MD on 09/22/2016 at 9: 13 . 12-lead ECG EKG: Normal sinus rhythm at 116 bpm, left axis deviation present, QTC 478, mild widening of QRS complex (104 ms). . Additional Diagnostics DateTimeAnalyzed 05:31:00 -_ pH ____7.414 - pCO2 ___53.3__ -mmHg pO2 ___68.7__ -mmHg HCO3- ___33.4__ -mmol/L FIO2 ___21.0__ -% PEEP ___12.0__ -cmH2O Set_RR ___24.0__ -b/min Vt __480.0__ -L EEG IMPRESSION: This electroencephalogram performed in the comatose state is abnormal. The slow background activity is suggestive of moderate cerebral cortical dysfunction/encephalopathy. This is a nonspecific finding and may be seen in a wide variety of different clinical conditions, including secondary to medication effect, as well as medical conditions such as toxic metabolic, hypoxic, inflammatory, autoimmune and infectious states. If clinically indicated, a repeat study performed off all fall sedative agents may be helpful. The propofol was held before this electroencephalogram was performed. Clinical correlation is advised. Seamus Cee MD 10/04/16 1904. Assessment & Plan Magdaleno Villegas is a 76-year-old male with CLL currently on chemotherapy with past medical history significant for COPD who was transferred from [facility] due to septic shock and respiratory failure. Currently being treated for staph bacteremia, disseminated zoster, and Yannick albicans. Hospital day 18. Vent day 18. 1. Staphylococcus bacteremia, present on admission. Active. - Blood cultures positive on two separate occasions. First with staphylococcus aureus and then with coag negative staphylococcus. - Repeat blood cultures drawn on 10/05 with no growth. - Nafcillin continuos infusion from 09/24-09/30. - Meropenem 09/30-10/06. - Daptomycin started 10/05 and continued. - IJ removed 10/06 and tip sent for culture. No growth to date. - Dr. Ritter consulted, appreciate time and expertise. 2. Acute hypoxic respiratory failure, present on admission. Active. - Patient presented with severe hypoxia and was requiring 100% FiO2, 12 of PEEP , respiratory rate of 35, and tidal volumes were initially 600 mL but was quickly taken down to 470 mL. - Chest tube placed 09/25 due to hypoxemia secondary to large pleural effusion. Removed on 10/06. - Patient also has suspected underlying COPD which will complicate his pulmonary course. - Lasix drip started 10/06 to help improve respiratory status. - Sedation and FiO2 requirements decreased. - Ventilator management per ICU team, appreciate the expertise 3. Febrile, not present on admission. Active. - Patient continues to spike fevers. Overnight Tmax of 38.3 C. - Concern for ventilator associated pneumonia is minimal as respiratory status has improved. Sputum cultures sent. - At this time no additional antibiotics or treatment. We will continue to monitor. 4. Hypervolemic, not present on admission. Active. - Patient initially aggressively fluid resuscitated. - Patient 30 L positive cumulatively. Yesterday patient was net -2 L. - Lasix drip at 10. We will continue to aggressively diuresis. - Monitor electrolytes as patient may be developing a contraction alkalosis. 5. Septic shock requiring 3 pressors support, present on admission. Resolved. - Etiology multifactorial including disseminated zoster, staph bacteremia, and decubitus ulcer on left ischial tuberosity. - At [facility] patient became hypotensive and unresponsive to fluids and was started on three pressors and transferred to [facility]. - On admission here patient tachycardic, pro-calcitonin 21.82, lactic acid of 4.8 (lactic acid at [facility] was 1.4). - Norepinephrine titrated off on 09/28. Restarted 10/02. Titrated off again on . - Blood cultures and lumbar puncture as above. - Dr. Ritter consulted, appreciate the expertise. 6. Disseminated zoster, present on admission. Treatment completed. - Encephalitis, hepatitis, and pneumonitis secondary to disseminated zoster - Evidence of multiple lesions in multiple dermatomes. Currently crusted. - Acyclovir course of 17 days completed on 10/06 - Lumbar puncture with high opening pressure. CSF clear, WBC 19, RBC 2, Mononuclear WBCs 100, Polynuclear WBCs 0, Glucose 75, Protein 58. - Continues to be unresponsive to stimuli. - EEG completed 10/02. Results as above. - CT head 10/05 as above. - Dr. Ritter consulted, appreciate the expertise. 7. Acute kidney injury, present on admission. Resolved. - Patient presented to [facility] with a creatinine of 0.8, however over the subsequent days prior to his transfer here he was having a slow increase in his creatinine up to 1.6 and after pressure support his creatinine on arrival here was 2.21. - This acute kidney injury is likely due to hypoperfusion/prerenal secondary to dehydration and excessive pressure support with 2 peripheral vasoconstrictors and Levophed. Likely has a degree of ATN. - Lasix drip started 10/06. BUN and creatinine have continued to improve. - Continues to have good urine output. - Continue to monitor I and O and daily BMP - Nephrology consulted. Appreciate time and expertise. 8. Hypernatremia, not present on admission. Active. - Free water flushes increased 200 ml Q1H. - Meds mixed in d5w. - Continue to monitor with BMP. 9. Chronic lymphocytic leukemia, present on admission, undergoing oral chemotherapy prior to hospitalization. - No records available thus far but patient appears to be on current chemotherapy per family. - Neupogen given per Dr. Benavides's recommendations. - Heme/Onc consulted. Appreciate time and expertise. 10. Acute encephalopathy, present on admission, active. - Patient has a recent history of acute confusion with hospital admission and resolution of confusion during those stays. 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 - Sedation titrated down but continues on fentanyl and propofol. - CT head showed no acute intracranial process. Repeat 10/05 confirmed no changes. - Lumbar puncture with high opening pressure. CSF clear, WBC 19, RBC 2, Mononuclear WBCs 100, Polynuclear WBCs 0, Glucose 75, Protein 58. 11. Decubitus ulcer, present on admission, active. - Wound culture grew bacteroides fragillis. - Metronidazole stopped. - Wound care consulted. 12. Yannick albicans present in urine, not present on admission, active. - Micafungin 150 mg Q24H. 13. Anemia requiring transfusion - Multifactorial (infection,CKD,hemodilution) - Transfused 3 units PRBCs on 10/04-10/05. - Hb 7.2 today 10/07. Disposition: Patient remains critically ill and in the CCU. Overall his prognosis is guarded. Family change CODE STATUS to DNR/DNI last night. Further discussions with family throughout the weekend to discuss tracheostomy versus compassionate extubation. Yesterday's conversation family was leaning towards compassionate extubation as patient had documented he would not want to be sustained longer than a week or 2 with a feeding tube. GI Prophylaxis: H2 germaine VTE Prophylaxis: Sub-Q Heparin (Unfractionated) VTE Mechanical Devices: Intermittant Pneumatic CD Resuscitation Status: CPR: Attempt Resuscitation Limited Interventions: Cardioversion/Defibrillation, Intubation w Mech Vent, Medications and IV Fluid Attending Statement patient seen and examined with Dr Lama ,I agree with history,exam ,assessment and plan as outlined above . MATTHEW LAMA DO Oct 08, 2016 07:40 Arvind Stockton MD Oct 08, 2016 16:41
--- NOTE | 2016-10-08 14:28 | NUR ---
NUTRITION FOLLOW-UP ASSESS: 76 YO M admitted to CCU with acute hypoxic respiratory failure, severe sepsis, MSSA pneumonia and disseminated zoster with meningoencephalitis. Pt remains ventilator dependent. Propofol is currently off. Pt tolerating TF at goal rate well. PMHX: CLL with poor prognosis, HTN, hypercholesterolemia, GERD, cataracts, COPD. LABS: Reviewed. Na 148, CO2 32, BUN 44, Glu 177, Ca 7.9 MEDS: Insulin, Fentanyl, Pressor, Senna, Colace. GI: Stool via FMS. SKIN: Mario 12, Disseminated zoster, non-stageable pressure injury on his left ischium. WT: 131.5 kg, BMI: 44.1 kg/m2, Admit wt: 116.0 kg (BMI 38.9 kg/m2), IBW: 70 kg NUTRITION SUPPORT: Jevity 1.5 @ goal rate 50 ml/hr + 1 packet of Prosource BID + 75 ml q 1 hrs, to provide 1650 kcal/d (2460 w/ propofol), 92 g/d protein, and 2636 ml/d H2O, meeting 100% of est needs. ESTIMATED NEEDS: BMI (based on Admit Wt; re-estimated 10/07) Calories: 6968-7952 kcal/day (20-22 kcal/kg Admit BW) Protein: 85-105 g/day (1.2-1.5 g/kg IBW) Fluid: 2400 ml/day (~1 ml/kcal/d) NUTRITION DIAGNOSIS: 1) Inadequate oral intake related to decreased ability to consume sufficient energy as evidenced by current vent / NPO status - IMPROVED WITH ENTERAL FEEDING AT GOAL RATE. NUTRITION INTERVENTION: 1) Recommend increasing Jevity 1.5 to new goal rate 73 ml/hr to provide 2410 kcal/d, 102 g/d protein, and 1220 ml/d H2O, meeting 100% of est needs. 2) Increase flush to 100 ml q 1 hr per MD request to provide a total of 3620 ml/d H2O. 3) Adjust goal rate based on daily propofol rate MONITOR/EVALUATE: TF tolerance, vent/NPO status, wt, labs, GI, POC, nutrition status. Follow per high nutrition risk guidelines.
--- NOTE | 2016-10-08 16:53 | NUR ---
Social Work: Continued Discharge Planning D: Pt is on day 17 of stay and remains on the vent. Pt's sedation is being weaned and pt is somewhat more alert. Pulmonology and palliative care have met with pt's family. They would like to continue treatment over the weekend to determine if pt's neurological and/or cognitive functioning is improved or meaningful. If pt does not show signs of cognitive improvement family will likely consider a transition to comfort care. A: Pt who previously lived at [facility]. P: Evolving; RELIGIOUS LEADER to continue to follow pt's clinical course and assist with dcp pending decisions from family OMAYRA Aguirre
--- NOTE | 2016-10-08 19:46 | NUR ---
Mentation/oxygenation.. Pt remained sedate this am, with RASS of -3. Propofol and Fentanyl gtts weaned and were completely off as of 1100. By 1200 pt was starting to open eyes to command and turn head toward my voice. Physical therapy present and pt was able to be dangled on edge of bed for approx 15 minutes. Pt was tracking to voice more when up and was able to hold head up. Has been more hypertensive throughout shift and MD's have been updated with new orders received. Has been able to have Fio2 and peep decreased and Spo2 remains stable. Family notified of pt's increasing wakefulness and have gathered at the bedside. They are hopeful that his mentation will continue to improve and do not desire to change his course of care for now.
[2016-10-08] MEDS: Insulin GLARgine 100 Unit/mL Syringe SUBQ SCH (22:02)
[2016-10-09] VITALS (14 sets, daily range): BP systolic 130–198; BP diastolic 57–83; PULSE 93–108; RESP 23–28; O2SAT 86–94
[2016-10-09] MEDS: Furosemide Inj 100 MG in 0.9% Sodium Chloride 90 ML IV SCH ×3 (00:30→17:13)
[2016-10-09] MEDS: Dexmedetomidine 400 mCg/100 mL 400 MCG in IV Premix 1 EACH IV SCH ×2 (01:30→16:31)
[2016-10-09] MEDS: Chlorhexidine 0.12% 15 mL Oral Solution MT SCH ×6 (02:33→20:03)
[2016-10-09] MEDS: Labetalol 5 mg/mL 20 mL Inj IVPUSH PRN ×4 (02:33→16:43)
[2016-10-09] MEDS: Insulin Human REGular 300 Unit/3 mL Inj SUBQ SCH (02:44)
--- NOTE | 2016-10-09 06:19 | NUR ---
P: Mentation I: Fentanyl and propofol drips off at 1100 on 10/08. No further sedation given. E: Pt does not open eyes or move any extremities. Does not follow any cues. RASS -3. Rarely coughs w/ suctioning. Generally overbreathes vent rate. Sats 92% on 35% FI02. Tele ST. MAX temp 39.2AX. Tylenol PO given start of shift. SBP 170-200s. Lopressor PO given HS. Labetolol 10mg x 2 and 20mg IVP. Moderate short response. Lasix drip at 10mg/hr w/ 1950ml UOP response this shift. Generalize red rash fragile skin. Anasarca. BUEs w/ some serous weeping. Buttocks w/ maceration. Calmoseptine applied around sometimes leaking FMS. R chest and RLQ dressings changed, serous drainage. L shoulder w/ scattered scabbing.
[2016-10-09 06:24] LABS: Mean Corpuscular Hemoglobin 28.3 pg (27.0-35.0); Mean Corpuscular Volume 93.5 fL (81-100); Platelet Count 191 bil/L (150-400)
[2016-10-09 06:49] LABS: Magnesium 1.7 mg/dL (1.6-2.6); Phosphorus 3.5 mg/dL (2.5-4.9)
[2016-10-09 07:02] LABS: NEUTROPHILS % (AUTO) 56 % (40-74)
[2016-10-09 07:03] LABS: BASOPHILS % (AUTO) 0 % (0-3); EOSINOPHILS % (AUTO) 0 % (0-5); MONOCYTES % (AUTO) 8 % (4-12)
[2016-10-09] MEDS: LacriLube S.O.P. 3.5 Gm Ophthalmic Ointment BOTH_EYES SCH ×2 (07:39→20:04)
[2016-10-09] MEDS: DAPTOmycin Inj 750 MG in 0.9% Sodium Chloride 50 ML IV SCH (07:40)
[2016-10-09] MEDS: Famotidine Inj 20 MG in IV Premix 1 EACH IV SCH ×2 (07:40→20:13)
[2016-10-09] MEDS: Senna Leaf Extract 528 mg/15 mL Syrup PO SCH ×2 (07:41→20:05)
[2016-10-09] MEDS: Micafungin Inj 150 MG in Dextrose 5% 100 ML IV SCH (07:41)
[2016-10-09] MEDS: Heparin 5,000 Unit/mL Inj SUBQ SCH ×2 (07:42→20:05)
[2016-10-09] MEDS: 0.9% Sodium Chloride 250 ML IV SCH (08:10)
--- NOTE | 2016-10-09 08:20 | ABG ---
DateTimeAnalyzed 08:14:24 -_ pH ____7.490 - pCO2 ___47.5__ -mmHg pO2 ___58.5__ -mmHg HCO3- ___36.2__ -mmol/L ABE ___11.8__ -mmol/L tHb ____8.8__ -g/dL O2Hb ___90.4__ -% COHb ____1.9__ -% MetHb ____0.0__ -% sO2 ___92.2__ -% FIO2 ___35.0__ -% PEEP ___10.0__ -cmH2O Set_RR 24 -b/min Vt __480.0__ -L Drawn By as - Date/Time Notified____ 08:20:00 -_ Oxygen Device 1 VENTILATOR - Notified By ams - Notified Whom Dr Allred - B 746 -mmHg K+ ____3.4__ -mmol/L tO2 ___11.2__ -Vol% Jeevan test _Positive -
[2016-10-09] MEDS ORDERED: Meropenem Inj 1,000 MG in IV Premix 1 EACH IV SCH (08:30)
--- NOTE | 2016-10-09 08:57 | PROG NOTE ---
[address] [address] PROGRESS NOTE PATIENT: BRITTNEY CASILLAS : 1940 MR#: [id number] ADMIT: 09/21/2016 JOB ID: [id number] DATE: 10/09/2016 INFECTIOUS DISEASE FOLLOW UP NOTE: REASON FOR FOLLOWUP: Disseminated varicella zoster virus infection with associated encephalitis, MSSA bacteremia, coag-negative Staph bacteremia, prolonged ventilator dependence, CLL and decubitus ulcer. INTERVAL HISTORY: Over the past 24 hours, there has been some improvements and some back sliding. The patient's respiratory support has been cut considerably. Yesterday, he was on 50% FiO2 and 12 of PEEP and by late last night he was down to 35% inspired oxygen and only 10 of PEEP. He has tolerated this drop in his oxygen support quite well. He has also awakened a little bit and is now sometimes moving spontaneously though not interacting in any formal way with the staff and certainly not communicative. On the negative side, the patient has developed more nosocomial fever which is of great concern. This case was discussed exhaustively with nursing and the ICU team at the bedside as we collectively examined and discussed the patient this morning. PHYSICAL EXAMINATION: Reveals an afebrile gentleman, temperature 38.2, pulse 103, blood pressure is 194/79. He is saturating well on 35% and 10 of PEEP. The patient does not have an NG tube. His oral endotracheal tube, orogastric tube are in good position. The zoster skin lesions on the head, torso and left shoulder have all crusted. Around the wrists bilaterally, there are still deep erythroderma which we believe is due to trauma from the restraints. The patient was rolled over with the assistance of several team members. Across his back and buttocks, there is a diffuse faint erythroderma which has the appearance of pressure related phenomena rather than zoster or drug rash. The decubitus ulcer seen along the right buttock just lateral to the anus is much improved over what it was when he originally presented to the hospital and there is no evidence of residual inflammation and the decubitus has actually improved considerably. The rectal tube prevents any feces from soiling his decubitus at least at this time. There are no new decubiti. The patient's lungs were listened to while he was up on his side so we could examine his backside and his lungs are reasonably clear with some crackles at the bases. Cardiac tones: Regular rate and rhythm today without new murmur. The patient has no peripheral stigmata of endocarditis. His abdomen is soft and nontender without organomegaly. His scrotum is still swollen with a Prado in place but no skin breakdown. His lower extremities are without cellulitis or without new edema, though there still remains 1-2+ edema there. LABORATORIES: Include a white count which has jumped from steady 7000 a few days ago to 12,000. Also we have the appearance of a new left shift with 2% blasts, 1% myelocytes and 1% metamyelocytes. His creatinine is 1.07, slightly up from yesterday. His LFTs are completely normal. Procalcitonin was last done two days ago and was 0.49, which was the lowest of this admission. Our most recent Fungitell was done five days ago and has come back negative. Recall that crypto antigen was negative previously. Our blood cultures from October 07 drawn through the PICC and the skin are negative. A cath tip from a central line that was pulled several days ago was negative. Blood cultures on October 05 were also negative. Our last positive blood cultures were 2/4 bottles drawn from the central line we have now pulled, which grew coag-negative Staph back on the . Two urine samples and a sputum have grown Gisel albicans. IMAGING: Includes the recent imaging of the upper extremities looking for DVT which was negative. In addition, yesterday we had a chest x-ray that showed mild bibasilar airspace infiltrates, unchanged. Today's chest x-ray is pending. IMPRESSION: Many things have been improving over the last several days in this patient including the drop in procalcitonin, white blood count and most impressively the reduction in his ventilatory support over the past 24 hours. It is also notable that his VZV rash is now completely crusted, and the patient has started to awaken though to a very limited degree so far. Against this positive backdrop, we now have new fevers and leukocytosis. The differential diagnosis for this is broad and includes the possibility of a nosocomial respiratory tract infection which I feel is quite unlikely because his O2 situation is actually improving and he has scant respiratory secretions with relatively normal auscultation. Also possible here would be a GI process such as a nosocomial hepatitis or pancreatitis and we are evaluating those. DVT of the lower extremities is possible and just yesterday we looked for DVT of the upper extremities which was negative. The patient's PICC line was placed back at a time when he was noted to have MSSA bacteremia and we have never documented infection of the PICC line and certainly the left upper extremity PICC line looks benign today but that is also a potential source of concern. A nosocomial urinary tract infection seems unlikely as does drug fever given that he is now receiving just dapto and micafungin for antibiotics. We continue to treat the original MSSA bacteremia as we have no good echo evidence that he does not have endocarditis. Likewise the patient is in the midst of a two week course of micafungin for possible disseminated Gisel. We recently had treated the patient with a week of meropenem for a nosocomial fever which seemed to improve and it may be that we once again need broader spectrum antibiotic coverage possibly to cover any residual infection of his decubitus area though that also looks improved. RECOMMENDATIONS: 1. Blood cultures x2 will be done both through the PICC line and through the skin. 2. Urinalysis with reflex culture has been ordered. 3. Sputum Gram stain and culture has been ordered. 4. Stool for C difficile has been ordered. 5. Ultrasound of the lower extremities will be done. 6. Lipase will be added to this morning's labs. 7. Procalcitonin will be added to this morning's labs. 8. Once the blood cultures have been collected, will go ahead and start the patient on meropenem 1 g IV q.8. 9. Will continue with the dapto and micafungin. 10. I discussed this case twice yesterday with the patient's family and discussed the case in detail with the ICU team today.
--- NOTE | 2016-10-09 09:33 | PCM.PNMED ---
Subjective Date of Service Oct 09, 2016 Subjective PULMONARY/CRITICAL CARE PROGRESS NOTE Yesterday: Worked with PT, was able to sit at edge of bed with assistance, and was able to maintain head strength and posture. Opened eyes with some reports of tracking. All sedation remained off. BP elevated sys 163-191. Febrile with Tm 39.2 Today: No acute distress noted. Eyes opened, but not tracking or following commands. BP remaining elevated at 194/79. Febrile with T38.2. Significant decrease in FiO2 overnight to 35. Labs: WBC 12.5 with blasts; Na 151, K 3.6; Mg 1.7; albu 3.2 Info: Net IO + 54056; 24hUOP 7150mL; 24hIO - 3049 Vent: PRVC FiO2 35, PEEP 10, R 24, Vt 480 Exam Vital Signs Vital Sign - Last Date Time Temp Pulse Resp B/P Pulse Ox O2 Delivery O2 Flow Rate FiO2 10/09/16 08:19 105 91 35 10/09/16 04:30 38.2 28 194/79 Mechanical Ventilator Intake and Output 10/08/16 10/08/16 10/09/16 Cumulative From/Thru 15:00 23:00 07:00 09/21/16 19:30 - 10/09/16 05:01 Intake Total 1974 ml 1742 ml 681298 ml Output Total 3100 ml 2075 ml 17688 ml Balance -1126 ml -333 ml 71880 ml Intake Oral 60 ml IV Total 444 ml 241 ml 52215 ml Tube Feeding 596 ml 640 ml 10549 ml Packed Cells 925 ml Tube Irrigant 934 ml 861 ml 67606 ml Output Urine Total 3100 ml 1950 ml 84473 ml Stool Total 125 ml 2785 ml Gastric Drainage Total 2015 ml Chest Tube Drainage Total 390 ml # Bowel Movements 8 Exam General: Intubated and sedated; no acute distress; diffusely edematous; no responses to verbal or sternal rub stimuli; eyes open HENT: ETT in place, mucus membranes dry; conjunctival erythema present Neck: Soft, obese, trachea midline by palpation; edematous Cardiac: Regular rate and rhythm; no murmurs appreciated Respiratory: Sounds faint secondary to habitus, R > L diminished sounds; no wheeze appreciated Abdomen: Soft, nontender, nondistended; obese; Moderate-severe pitting anasarca present Extremities: BLLE moderate-severe pitting edema from ankles to abdomen; BLUE moderate pitting edema noted distal extremities to trunk Lines: Left PICC; bandages dry, intact : Prado in place; urine yellow; severe scrotal edema present without evidence of breakdown at this point; FMS in place; ulceration noted on buttock, appears healing, no active bleeding, exudate, or surrounding erythema Skin: Warm, dry; multiple, diffuse areas of scabbed lesions without active bleeding, exudate, or erythema; notable erythematous lesions bilateral distal forearms at wrists without active bleeding, some non sanguinous serious exudate , and without evidence of vesicle formation. Neuro: Unable to fully assess secondary to intubation and sedation; not aroused to voice or sternal rub Psych: Unable to assess at this time secondary to intubation and sedation Lab and Diagnostics Result Diagram: 10/09/1652910/09/16529 Microbiology CSF positive for VZV. MRSA screen negative. Buttock culture positive for staphylococcus aureus resistant to tetracycline and bacteroides fragilis. Blood cultures 2:4 positive for staphylococcus aureus resistant to tetracycline. Sputum positive for staphylococcus aureus resistant to tetracycline. Clostridium difficile PCR negative. Fungal blood cultures x 2 pending. Urine grew yannick albicans. . X-Rays, CTs and MRIs X-RAY CHEST ONE VIEW, PORTABLE IMPRESSION: No change in multifocal pneumonia. Dictated by: Adalberto Barker M.D. on 10/04/2016 at 7:40 Approved by: Adalberto Barker M.D. on 10/04/2016 at 7:41 X-RAY CHEST ONE VIEW, PORTABLE IMPRESSION: Right thoracostomy tube. No pneumothorax or subcutaneous emphysema. Dictated by: Simona Johnson M.D. on 09/25/2016 at 18:52 Approved by: Simona Johnson M.D. on 09/25/2016 at 18:52 X-RAY CHEST ONE VIEW, PORTABLE IMPRESSION: 1. Support lines and tubes as above. 2. Bilateral pleural effusions, right greater than left. 3. Bilateral lower lung consolidation, increasing involving the right lung base and similar involving the left. Dictated by: Francisco Javier Antonio [facility] Interpreted: Merry Robison MD on 09/23/2016 at 9:45 Transcribed by: JIM on 09/23/2016 at 9:45 Approved by: Merry Robison MD, PhD on 09/23/2016 at 16:56 X-RAY CHEST ONE VIEW, PORTABLE IMPRESSION: 1. Support lines and tubes as above. 2. Abnormal opacity within the right lung and the lung bases consistent with pulmonary edema and/or diffuse bilateral inflammatory process. Recommend clinical correlation and followup. Dictated by: Francisco Javier BASSETT Interpreted: Jammie Drake MD on 09/22/2016 at 9: 13 . 12-lead ECG EKG: Normal sinus rhythm at 116 bpm, left axis deviation present, QTC 478, mild widening of QRS complex (104 ms). . Additional Diagnostics DateTimeAnalyzed 05:31:00 -_ pH ____7.414 - pCO2 ___53.3__ -mmHg pO2 ___68.7__ -mmHg HCO3- ___33.4__ -mmol/L FIO2 ___21.0__ -% PEEP ___12.0__ -cmH2O Set_RR ___24.0__ -b/min Vt __480.0__ -L EEG IMPRESSION: This electroencephalogram performed in the comatose state is abnormal. The slow background activity is suggestive of moderate cerebral cortical dysfunction/encephalopathy. This is a nonspecific finding and may be seen in a wide variety of different clinical conditions, including secondary to medication effect, as well as medical conditions such as toxic metabolic, hypoxic, inflammatory, autoimmune and infectious states. If clinically indicated, a repeat study performed off all fall sedative agents may be helpful. The propofol was held before this electroencephalogram was performed. Clinical correlation is advised. Seamus Cee MD 10/04/16 190. Assessment & Plan PULMONARY/CRITICAL CARE CONSULT NOTE - [facility] Hospital day 18 (+1 for [facility] inclusion) - [facility] Ventilator day 18 (+1 for [facility] inclusion) Mr. Villegas was emergently transferred from [facility] with severe sepsis likely secondary to aspiration PNA. He required intubation and sedation, fluid resuscitation, use of pressor agents, and paralytics. He was stabilized in the CCU, with pressor weaning, and continued ventilatory support. Infectious disease has been consulted to evaluate the source of infection, including the disseminated VZV. Chart review reveals multiple recent hospitalizations at [place] and [facility] within recent days prior to this admission for reported AMS. Imaging was performed at these facilities, and requests were placed to push images to our system and to obtain records. He currently remains stable in the CCU intubated and sedated receiving fluids, pressors, and antibiotics. Repeat CT 09/22 did not reveal any acute pathologies. Echo completed 09/22, was a difficult study, but LV was grossly unremarkable with function, and RV was mildly dilated, but unremarkable in function. Valves were not well visualized. CSF PCR confirmed the presence of zoster. S. aureus has been detected in sputum , blood, and buttock lesion, indicating a staph bacteremia; Bacteroides was found within buttock lesion as well. Infectious disease consulted and following. Nephrology was consulted to evaluate kidney function and fluid status. Recent decrease in Hb/acute anemia may be indicative of dilution, significant decreases have resulted in pRBC transfusions. Chest tube was urgently placed 09/25 secondary to rapidly progressing hypoxemia due to enlarging effusion. Estimated 1-2L drained upon tube placement, fluid yellow/ clear in color. Chest tube output decreased to zero, remains in place while mechanically ventilated. Lesions developed on bilateral wrists that appear weeping and erythematous, likely secondary to irritation from restraint and ID bracelet placement. No concern for zoster. These lesions have increased in erythema, but remain without vesicle formation. Fevers developed 09/29-09/30, and continue intermittently. New cultures obtained. Briefly remained afebrile after abx switched from nafcillin to meropenem, but fevers returned. Ice packs and cooling measures instituted in addition to APAP IV. Fevers unlikely infectious in origin, unlikely drug reaction with current regimen; consider neurologic or underlying clot. After development of BL wrist rashes, meropenem added to regimen. Copious thick, yellow secretions produced. Concern for VAP. Sputum Cx sent. No growth to date. Prognosis remains guarded at this time. Immediate concerns include patient's inability to be weaned off sedation and inability to arouse to stimuli. It is unclear the level of cognitive function that is present. EEG completed 10/02, noted to have comatose waveforms. Vidyo was not able to well visualize the valves. MR brain was unable to be completed due to question of the exact compatibility of the portable ventilator with the MRI machine and ability to maintain medication pushes throughout the procedure. CT brain wo contrast was completed in lieu, no obvious sign of ischemic injury or hemorrhage noted. Palliative care has kindly consulted and will be crucial in navigating family understanding and expectations. Topic of tracheostomy was breached, and family goals at this time are to aggressively decrease sedation and assess mentation later this week. Family discussion 10/08 involved discussions on ways to proceed. Family states understanding that complete recovery is highly unlikely, and if he were able to recover neurologically at any level, it would lead to a prolonged recovery with return far below previous baseline. It was discussed, and agreed, to wait through the weekend, and re-assess with minimal to zero sedation. Assessments - Acute hypoxemic respiratory failure; ongoing - Severe sepsis likely secondary to aspiration PNA, bacteremia, and disseminated zoster; therapy completed - Suspected aspiration PNA vs zoster pneumonitis; therapy completed - Disseminated zoster with meningoencephalitis; therapy completed - Staph bacteremia; under therapy - DANY; improving - Normocytic normochromic anemia, acute; stable; s/p total 3U pRBC - Hypertensive urgency - UTI secondary to Yannick - CLL on oral chemotherapy - Intermittent fevers: Neurological vs infectious vs underlying clot - Bilateral distal forearm erythematous skin lesions/rash Plan: - Replenish electrolytes prn; add afternoon BMP to assess while on Lasix gtt - ABGs in am - Upright CXR in am - Abx/antivirals per ID: daptomycin, micafungin; meropenem added 10/09 - Neupogen per oncology; discontinued - Recommend to concentrate medications as much as possible, with D5W as fluid - Continue Lasix gtt - Metoprolol 50mg BID - Hydralazine 25mg TID - Amlodipine 2.5mg daily; can increase to 5 if BP remains uncontrolled - Labetalol 10-20mg IV prn sysBP > 170 - Venous duplex BLLE to eval DVT/source of fever - Lipase, PCT added - Stool C. diff - Repeat BCx, UCx 10/09 - Continue to decrease PEEP, prepare for SBT - Insulin gtt - Nutrition: Tube feeds at goal; free water flushes increased to 100mL/hr - DVT: Hep q8 - GI: H2B - Code: DNR/DNI Thank you for this consult, we will happily follow along with you at this time. If you have any additional concerns or would like us to assist in any other way , please do not hesitate to ask. Total time: 60 minutes Pain Evaluation: Adequate Pain Control GI Prophylaxis: H2 germaine VTE Prophylaxis: Sub-Q Heparin (Unfractionated) VTE Mechanical Devices: Intermittant Pneumatic CD Resuscitation Status: CPR: Attempt Resuscitation Limited Interventions: Cardioversion/Defibrillation, Intubation w Mech Vent, Medications and IV Fluid Attending Statement I have seen and examined this patient with the resident physician. Vital signs , labs, imaging have been reviewed. I agree with the assessment and plan above. Please refer to my separately dictated progress note for any modifications to above. Maira Kenyon M.D. Pulmonary and Critical Care medicine Pager [phone] Alfreda Allred DO Oct 09, 2016 09:32 Maira Kenyon MD Oct 09, 2016 15:49
--- NOTE | 2016-10-09 09:47 | DRSVH ---
PROCEDURE: X-RAY CHEST ONE VIEW, PORTABLE ([id number]) INDICATIONS: intubated TECHNIQUE: One view of the chest was acquired. COMPARISON: [facility], CR, XR CHEST 1VW (PORTABLE), 10/08/2016, 5:25. FINDINGS: Surgical changes and devices: Stable position of ETT, left PICC and a nasogastric tube tip is project ed beyond the GE junction. Lungs and pleura: No pneumothorax. Mediastinum: Mild edema and mid/basilar airspace opacity similar prior examination. Small pleural ef fusions. No pneumothorax. Bones and chest wall: No suspicious bony lesions. Overlying soft tissues appear unremarkable. IMPRESSION: Stable chest compared to prior exam. Dictated by: Francisco Javier Antonio RRA Interpreted: Merry Robison MD on 10/09/2016 at 9:46 Transcribed by: JIM on 10/09/2016 at 9:46 Approved by: Merry Robison MD, PhD on 10/09/2016 at 16:46
--- NOTE | 2016-10-09 10:40 | NUR ---
NUTRITION FOLLOW-UP ASSESS: 76 YO M admitted to CCU with acute hypoxic respiratory failure, severe sepsis, MSSA bacteremia and disseminated zoster with meningoencephalitis. Pt remains ventilator dependent. Patient is improved over the last several days with regard to the drop in procalcitonin, white blood count and most impressively the reduction in his ventilatory support over the past 24 hours. The VZV rash is now completely crusted, and the patient has started to awaken though to a very limited degree so far. However, there are now new fevers and leukocytosis. The differential diagnoses include a nosocomial respiratory tract infection, a GI process such as a nosocomial hepatitis or pancreatitis, DVT of the lower extremities, PICC line infection, nosocomial urinary tract infection, and drug fever. PMHX: CLL with poor prognosis, HTN, hypercholesterolemia, GERD, cataracts, COPD. LABS: Reviewed. Na 151, CO2 38, BUN 48, Glu 271, Ca 8.1, alb 3.2, Lipase 220, Triglycerides 162. MEDS: Reviewed. Lopressor, Lasix, Insulin. Sedation discontinued yesterday. GI: Stool via FMS, 50 ml (10/08). SKIN: Mario 12, Disseminated zoster nearly resolved, non-stageable pressure injury on his left ischium. WT: 127.4 kg, BMI: 42.0 kg/m2, Admit wt: 116.0 kg (BMI 38.9 kg/m2), IBW: 70 kg NUTRITION SUPPORT: Jevity 1.5 @ goal rate 50 ml/hr + 1 packet of Prosource BID + 75 ml q 1 hrs, to provide 1650 kcal/d (2460 w/ propofol), 92 g/d protein, and 2636 ml/d H2O, meeting 100% of est needs. ESTIMATED NEEDS: BMI (based on Admit Wt; re-estimated 10/07) Calories: 0788-4818 kcal/day (20-22 kcal/kg Admit BW) Protein: 85-105 g/day (1.2-1.5 g/kg IBW) Fluid: 2400 ml/day (~1 ml/kcal/d) NUTRITION DIAGNOSIS: 1) Inadequate oral intake related to decreased ability to consume sufficient energy as evidenced by current vent / NPO status - IMPROVED WITH ENTERAL FEEDING. 2)Altered nutrition-related labs related to uncontrolled blood glucose, as evidenced by recent blood glucose labs in the upper 200's. NUTRITION INTERVENTION: 1) Received verbal authorization to change enteral formula to Glucerna 1.5 for better diabetes control. Orders written to initiate at 30 ml/hr. Once tolerance established, advance 5 ml every 4 hr. to goal rate 70 ml/hr. Flush dose to to remain at 100 ml/hr per discussion during CCU rounds. Enteral feeding at goal rate will provide 2310 kcal, 127 g protein, sufficient to meet 100% nutrient needs. MONITOR/EVALUATE: Enteral feeding tolerance, vent / NPO status, wt, labs, GI, POC, nutrition status. Follow per high nutrition risk guidelines.
--- NOTE | 2016-10-09 10:54 | PCM.PALLBR ---
Palliative Care Recommendation 78-year-old gentleman admitted with staphylococcal sepsis and disseminated VZV, including meningoencephalitis, in the setting of recurrent poor prognosis CLL. Remains intubated and mechanically ventilated without significant neurologic recovery to this point. Palliative medicine consulted to assist family members and determination of goals of care. Summary of palliative recommendations: Palliative Plan: -Symptom management (Pain/other) - Patient is intubated and sedated. Patient is entirely off sedation at present; CCU recommendations are to avoid restarting sedation, but in the event that sedation must be restarted start propofol gtt first and only give pushes of fentanyl as necessary. Currently not responsive to commands and no meaningful interaction yet. - Patient in no obvious distress at this time- other symptomatic management per medical/critical care teams The goal continues to be to monitor for improved mentation while continuing other medical supportive care. At this time, the consensus plan is to continue current support and treatment through the weekend and then revisit progress and plans prior to considering tracheostomy. See below for further details -DPOA/Advanced Directives/POLST - Per family decision on the evening of 10/07/16, now DO NOT RESUSCITATE - Previous POLST completed by the patient and his PCP/MD, on September 18, 2016 indicated patient's wishes for aggressive resuscitation, but family members are all in agreement that if it appears he would be permanently cognitively impaired and/or SNF-bound/unable to be physically active and independent, that the patient would not wish this, and it was in recognition of this that the family adjusted his CODE STATUS. -Family/emotional support - 4 sons Duane, Bill, Piyush and Juan. Duane's is Perilta. Niece Nakia. -Spiritual support - not discussed at this time Family Goals: 1. Family wants to be told the truth about his illness, even if it is unpleasant. 2. Family would like to be told prognosis when it can be predicted, to better guide treatment decisions. 3. Patient would not want to be bed bound and unable to care for himself Additional Medical Diagnoses with primary management by Hospitalist team include : 1. Staphylococcus bacteremia, present on admission. Active. 2. Septic shock requiring 3 pressors support, present on admission. Resolved. 3. Disseminated zoster, present on admission. Treatment completed. 4. Acute hypoxic respiratory failure, present on admission. Active. 5. Febrile, not present on admission. Active. 6. Acute kidney injury, present on admission. Improving. 7. Hypernatremia, not present on admission. Active. 8. Chronic lymphocytic leukemia, present on admission, undergoing oral chemotherapy prior to hospitalization. 9. Acute encephalopathy, present on admission, active. 10. Decubitus ulcer, present on admission, active. 11. 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 12.Anemia requiring transfusion Problems: End of Life Preferences DO NOT RESUSCITATE in the event of acute cardiac event Goals of Care 1. Family wants to be told the truth about his/her illness, even if it is unpleasant. 2. Family would like to be told prognosis when it can be predicted, to better guide treatment decisions. 3. Patient would not want to be bed bound and unable to care for himself Disposition To be determined Resuscitation Status Resuscitation Status: Limited Interventions Limited Interventions: Intubation w Mech Vent, Medications and IV Fluid POLST Updates/Changes Previous POLST?: Yes POLST Last Review Date: Oct 05, 2016 Antibiotics: Determine Use or Limitations Artificially Admin Nutrition: Trial Period Tube Feeding POLST Discussed with: Spouse/Other (Daughter in Law Perlita and Niece Nakia) POLST Review Outcome: No Change Total time 40 minutes; >50% face to face with patient and/or family, providing counselling regarding plans and recommendations, and in care coordination with his/her medical teams. Attending Statement I was physically present and immediately available to resident physican during this patient/family interaction. I discussed management plan and our consult recommendations with him and I agree with documentation as stated in his note above. Palliative Brief Note Date of Service Oct 09, 2016 . Returned to reevaluate patient. Prior to visiting, participated in critical care will rounds with medical/critical care teams, spoke with his hospitalist and critical care physician as well as his bedside nurse. After CCU rounds today 10/09/2016 Palliative team and CCU teams spoke with his [id number] Perlita, granddaughter Ashlyn and his niece Nakia. At that time, Dr. Kenyon of critical care reviewed his status with the family and answered their questions. Patient continues to have low grade fevers and all signs point to the fevers being of uninfectious etiology; the primary medical team will speak with Oncology today given the blood smear shows blasts without G -CSF currently thoughts to CLL induced fever versus neurogenic fever. That, as well as his continued progress with physical therapy led to decision between family and medical team to continue present support through the weekend, not proceeding with tracheostomy before next week. The plan continues to be monitoring for continued overall improvement, particularly meaningful neurologic/cognitive recovery. In that [facility] CCU would like to get an MRI of the patient's brain today if possible and is working towards that goal. If the patient continues to show no evidence of cognitive improvement and/or remained otherwise medically critically ill, family is beginning to consider transition to comfort care given the patient's desire ( per family report) to remain functional in ADLs and not bed bound. Wednesday decisions will be made by CCU and Family regarding impending need for tracheostomy due to prolonged intubation versus transition to comfort care. Patient was made DO NOT RESUSCITATE status several days ago. On exam, heavyset elderly gentleman lying in bed, intubated, eyes open but otherwise not interactive. Vital signs noted. Significant hypertension with SBP in 160-170. Skin is darkly complected, warm and dry. Multiple seborrheic keratoses and other age spots on head and neck. HEENT exam otherwise without acute focal findings. Lungs clear anteriorly, heart sounds regular and distant , abdomen obese and without apparent tenderness or peritoneal signs. All extremities with diffuse puffiness and edema with inducrated confluent appearing maculopapular rash on both forearms without fluctuance or drainage. Did not respond to any verbal commands to move any of his extremities. CHIQUITA PENA DO Oct 09, 2016 10:54 Kimmy Trent MD Oct 09, 2016 11:08
--- NOTE | 2016-10-09 11:35 | PROG NOTE ---
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 The patient was seen and evaluated with resident physician, Alfreda Allred. Please refer to her separate detailed note for additional information. INTERVAL HISTORY: He reportedly worked with physical therapy and was able to sit at the edge of the bed yesterday. He is also completely off of all sedation drips but remains unresponsive although I was told that briefly during his physical therapy work yesterday, he opened his eyes and seemed to track the voice. REVIEW OF SYSTEMS: Unable to obtain. PHYSICAL EXAMINATION: Vital signs reviewed. T-max 38.2. The blood pressure continues to be high in the 180-190 systolic. Sats are 92% on 35% FiO2 and 10 cm of PEEP. General: Intubated. Not on sedation but did not respond to voice. Chest: Clear to auscultation. Skin with multiple deep bruises on both arms/rash. He also has some healing vesicles on the face as before. LABORATORIES: Reviewed. Notable for WBC up to 12.5 from 7.3. Procalcitonin up to 0.7 from 0.4 yesterday. Cultures: No new growth. CBC is notable for 2% blasts. ASSESSMENT AND RECOMMENDATIONS: 1. Acute hypoxic respiratory failure. 2. Septic shock-resolved. 3. Varicella zoster meningoencephalitis. 4. Acute kidney injury-resolved. 5. MSSA bacteremia. 6. Suspected candidemia based on positive urine and sputum without positive blood cultures-on therapy. 7. CLL. 8. Anemia of chronic disease. A 76-year-old man seen and presenting with varicella zoster meningoencephalitis and MSSA bacteremia with respiratory failure and septic shock. He has been off pressors and extremely hypertensive. He has been off all sedation for the last 24 hours and we are monitoring his neurologic status. We will try to get an MRI done today since he is on minimal to no drips and also minimal vent settings at this point, which would make travel to the MRI easier. This will help us with information on whether he has had any damage due to the varicella zoster. From a respiratory standpoint, his oxygenation continues to improve and we will try to wean his PEEP from 10 slowly down to 5 today and plan on doing a pressure support trial after he gets to 5 cm of PEEP. We will continue diuresis with Lasix drip at 10 mg an hour. He is doing well with that and I think this is helping his oxygenation improve. With regard to his fever and jump in his white blood cell count as well as slight rise in procalcitonin, he is going to get blood cultures and repeat sputum cultures. Certainly his oxygenation is better and his x-ray seems improved as well, so I do not think this is a pulmonary source of infection. Antibiotic roa, his meropenem was added again today because of the fever. He is still on daptomycin, micafungin, though completed his course of acyclovir for the varicella zoster. I spoke to the family again and updated them. Hopefully, we are looking at monitoring him over the next few days and trying to make a decision regarding goals of care by Wednesday once we have a better idea of his neurologic status. The patient is DNR as I discussed in my note from October [address] Love and the family. CRITICAL CARE TIME: 60 minutes.
[2016-10-09] MEDS: Propofol Inj 1,000,000 MCG in IV Premix 1 EACH IV SCH (11:55)
--- NOTE | 2016-10-09 11:58 | DRSVH ---
PROCEDURE: US VENOUS LEG DUPLEX BILATERAL INDICATIONS: concern for dVT - febrile TECHNIQUE: Real-time imaging, as well as color and pulse Doppler interrogation, were performed of the deep veins of both legs from the inguinal ligament to the popliteal fossa. COMPARISON: None. FINDINGS: The deep veins are normally compressible, and free of intraluminal thrombus. Color and pu lse Doppler demonstrate normal phasic intravascular flow. There is normal augmentation response to d istal compression maneuver. IMPRESSION: No deep venous thrombosis identified within either the left or right lower extremities. Dictated by: Francisco Javier BASSETT Interpreted: Merry Robison MD on 10/09/2016 at 11:57 Transcribed by: JIM on 10/09/2016 at 11:57 Approved by: Merry Robison MD, PhD on 10/09/2016 at 16:45
[2016-10-09] MEDS ORDERED: fentaNYL-PF 50 mCg/mL 2 mL Inj ONE (12:31)
--- NOTE | 2016-10-09 14:45 | DRSVH ---
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 After the administration of contrast, axial and coronal 3D VIBE or T1 spin echo with fat saturation through the brain. COMPARISON: Outside Film, MR, MR BRAIN W&WO CON, 09/15/2016, 20:47. FINDINGS: Image quality: Significantly degraded by patient motion artifact. CSF Spaces: Basal cisterns are patent. Anterior left temporal arachnoid cyst is stable.. Diffuse pro minence of CSF space noted. Brain: No midline shift. No intracranial bleeds or masses. Confluent areas of hyperintense T2 signa l involving white and berumen matter of the parietal and occipital lobes has almost completely resolved with minimal-sized focus of increased T2 signal identified in the left occipital lobe (series 4, imag e 8; series 5, image 8). No abnormal intracranial enhancement. The brainstem appears normal. Diffus ion-weighted images demonstrate no acute ischemic insults. No chronic ischemic insults. A few, scatt ered, punctate foci of increased T2 signal noted in the frontal subcortical white matter tracts. Norm al intravascular flow voids are present. Skull and face: Calvarial marrow is normal in signal. Orbits appear normal. The presence of endotra cheal tube noted. Sinuses: Mucosal thickening noted in the maxillary sinuses bilaterally, the sphenoid sinuses bilatera lly, the ethmoid air cells bilaterally and the frontal sinuses bilaterally. Fluid signal noted in the mastoid air cells bilaterally. IMPRESSION: 1. 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 2. Moderate to severe diffuse volume loss. 3. No areas of infarction. 4. Minimal frontal subcortical white matter chronic microvascular ischemic changes. 5. Pansinusitis. 6. Fluid in the mastoid air cells bilaterally. Please correlate with clinical findings to differentia te serous fluid from mastoiditis. 7. Image quality degraded by patient motion. Dictated by: Merry Robison MD, PhD on 10/09/2016 at 14:32 Approved by: Merry Robison MD, PhD on 10/09/2016 at 14:43
--- NOTE | 2016-10-09 15:07 | PCM.PNMED ---
Subjective Date of Service Oct 09, 2016 Amy Villegas is a 76-year-old male with CLL currently on chemotherapy with past medical history significant for COPD who was transferred from [facility] due to septic shock and respiratory failure. Currently being treated for staph bacteremia, disseminated zoster, and Yannick albicans. Hospital day 19. Vent day 19. Overnight: Tmax of 39.2. Patient remains off sedation since 1100. Hypertensive and hyperglycemic overnight. Today: Intubated without sedation. No meaningful movements or responses. ETT secretions have decreased. ROS is not obtainable. Exam Vital Signs Vital Sign - Last Date Time Temp Pulse Resp B/P Pulse Ox O2 Delivery O2 Flow Rate FiO2 10/09/16 04:30 38.2 103 28 194/79 92 Mechanical Ventilator 35 Intake and Output 10/08/16 10/08/16 10/09/16 Cumulative From/Thru 15:00 23:00 07:00 09/21/16 19:30 - 10/09/16 05:01 Intake Total 1974 ml 1742 ml 370010 ml Output Total 3100 ml 2075 ml 46969 ml Balance -1126 ml -333 ml 71471 ml Intake Oral 60 ml IV Total 444 ml 241 ml 23598 ml Tube Feeding 596 ml 640 ml 39635 ml Packed Cells 925 ml Tube Irrigant 934 ml 861 ml 79558 ml Output Urine Total 3100 ml 1950 ml 32134 ml Stool Total 125 ml 2785 ml Gastric Drainage Total 2015 ml Chest Tube Drainage Total 390 ml # Bowel Movements 8 Exam General: Intubated and sedated; no acute distress; no responses to stimuli HEENT: ETT in place Cardiac: Tachycardic with regular rhythm, no murmurs appreciated Respiratory: Faint crackles at bases bilaterally; no wheezes Abdomen: Soft, nontender, nondistended; obese Extremities: Bilateral lower extremity pitting edema and dependent sacral edema. : Scrotal edema present. Ischial ulcer improved. Skin: Multiple scabbed, healed lesions noted on abdomen and left shoulder. Neuro: Patient sedated and intubated. Psych: Patient sedated and intubated. Lines: Left PICC, ETT, OG, [place], FMS Lab and Diagnostics Result Diagram: 10/09/16 0530 10/09/16 0530 Microbiology CSF positive for VZV. MRSA screen negative. Buttock culture positive for staphylococcus aureus resistant to tetracycline and bacteroides fragilis. Blood cultures 2:4 positive for staphylococcus aureus resistant to tetracycline. Sputum positive for staphylococcus aureus resistant to tetracycline. Clostridium difficile PCR negative. Fungal blood cultures x 2 pending. Urine grew yannick albicans. . X-Rays, CTs and MRIs X-RAY CHEST ONE VIEW, PORTABLE IMPRESSION: No change in multifocal pneumonia. Dictated by: Adalberto Barker M.D. on 10/04/2016 at 7:40 Approved by: Adalberto Barker M.D. on 10/04/2016 at 7:41 X-RAY CHEST ONE VIEW, PORTABLE IMPRESSION: Right thoracostomy tube. No pneumothorax or subcutaneous emphysema. Dictated by: Simona Johnson M.D. on 09/25/2016 at 18:52 Approved by: Simona Johnson M.D. on 09/25/2016 at 18:52 X-RAY CHEST ONE VIEW, PORTABLE IMPRESSION: 1. Support lines and tubes as above. 2. Bilateral pleural effusions, right greater than left. 3. Bilateral lower lung consolidation, increasing involving the right lung base and similar involving the left. Dictated by: Francisco Javier BASSETT Interpreted: Merry Robison MD on 09/23/2016 at 9:45 Transcribed by: JIM on 09/23/2016 at 9:45 Approved by: Merry Robison MD, PhD on 09/23/2016 at 16:56 X-RAY CHEST ONE VIEW, PORTABLE IMPRESSION: 1. Support lines and tubes as above. 2. Abnormal opacity within the right lung and the lung bases consistent with pulmonary edema and/or diffuse bilateral inflammatory process. Recommend clinical correlation and followup. Dictated by: Francisco Javier BASSETT Interpreted: Jammie Drake MD on 09/22/2016 at 9: 13 . 12-lead ECG EKG: Normal sinus rhythm at 116 bpm, left axis deviation present, QTC 478, mild widening of QRS complex (104 ms). . Additional Diagnostics EEG IMPRESSION: This electroencephalogram performed in the comatose state is abnormal. The slow background activity is suggestive of moderate cerebral cortical dysfunction/encephalopathy. This is a nonspecific finding and may be seen in a wide variety of different clinical conditions, including secondary to medication effect, as well as medical conditions such as toxic metabolic, hypoxic, inflammatory, autoimmune and infectious states. If clinically indicated, a repeat study performed off all fall sedative agents may be helpful. The propofol was held before this electroencephalogram was performed. Clinical correlation is advised. Seamus Cee MD 10/04/16 [id number]. Assessment & Plan Magdaleno Villegas is a 76-year-old male with CLL currently on chemotherapy with past medical history significant for COPD who was transferred from [facility] due to septic shock and respiratory failure. Currently being treated for staph bacteremia, disseminated zoster, and Yannick albicans. Hospital day 19. Vent day 19. 1. Staphylococcus bacteremia, present on admission. Active. - Blood cultures positive on two separate occasions. First with staphylococcus aureus and then with coag negative staphylococcus. - Repeat blood cultures drawn on 10/05 with no growth. - Nafcillin continuos infusion from 09/24-09/30. - Meropenem 09/30-10/06. - Daptomycin started 10/05 and continued. - IJ removed 10/06 and tip sent for culture. No growth to date. - Dr. Ritter consulted, appreciate time and expertise. 2. Acute hypoxic respiratory failure, present on admission. Active. - Patient presented with severe hypoxia and was requiring 100% FiO2, 12 of PEEP , respiratory rate of 35, and tidal volumes were initially 600 mL but was quickly taken down to 470 mL. - Chest tube placed 09/25 due to hypoxemia secondary to large pleural effusion. Removed on 10/06. - Patient also has suspected underlying COPD which will complicate his pulmonary course. - Lasix drip started 10/06 to help improve respiratory status. - Sedation off since 10/08 at 1100 and FiO2 requirements continued to decrease. - Ventilator management per ICU team, appreciate the expertise 3. Febrile, not present on admission. Active. - Patient continues to spike fevers. Overnight Tmax of 39.2 C. - Concern for ventilator associated pneumonia is minimal as respiratory status has improved. Sputum cultures sent. - Further workup including bilateral lower extremity ultrasound to rule out DVT , lipase, pro-calcitonin, repeat blood cultures through PICC and skin ordered 10/09. Results pending. - Meropenem added to antibiotic regimen to broaden coverage. 4. Hypervolemic, not present on admission. Active. - Patient initially aggressively fluid resuscitated. - Patient 28 L positive cumulatively. Yesterday patient was net -3 L. - Lasix drip at 10. We will continue to aggressively diuresis. - Monitor electrolytes as patient may be developing a contraction alkalosis. 5. Septic shock requiring 3 pressors support, present on admission. Resolved. - Etiology multifactorial including disseminated zoster, staph bacteremia, and decubitus ulcer on left ischial tuberosity. - At [facility] patient became hypotensive and unresponsive to fluids and was started on three pressors and transferred to [facility]. - On admission here patient tachycardic, pro-calcitonin 21.82, lactic acid of 4.8 (lactic acid at [facility] was 1.4). - Norepinephrine titrated off on 09/28. Restarted 10/02. Titrated off again on . - Blood cultures and lumbar puncture as above. - Dr. Ritter consulted, appreciate the expertise. 6. Disseminated zoster, present on admission. Treatment completed. - Encephalitis, hepatitis, and pneumonitis secondary to disseminated zoster - Evidence of multiple lesions in multiple dermatomes. Currently crusted. - Acyclovir course of 17 days completed on 10/06 - Lumbar puncture with high opening pressure. CSF clear, WBC 19, RBC 2, Mononuclear WBCs 100, Polynuclear WBCs 0, Glucose 75, Protein 58. - Continues to be unresponsive to stimuli. - EEG completed 10/02. Results as above. - CT head 10/05 as above. - Dr. Ritter consulted, appreciate the expertise. 7. Acute kidney injury, present on admission. Resolved. - Patient presented to [facility] with a creatinine of 0.8, however over the subsequent days prior to his transfer here he was having a slow increase in his creatinine up to 1.6 and after pressure support his creatinine on arrival here was 2.21. - This acute kidney injury is likely due to hypoperfusion/prerenal secondary to dehydration and excessive pressure support with 2 peripheral vasoconstrictors and Levophed. Likely has a degree of ATN. - Lasix drip started 10/06. BUN and creatinine have continued to improve. - Continues to have good urine output. - Continue to monitor I and O and daily BMP - Nephrology consulted. Appreciate time and expertise. 8. Hypernatremia, not present on admission. Active. - Free water flushes increased 200 ml Q1H. - D5 water at 75 mL per hour. - Meds mixed in d5w. - Continue to monitor with BMP. 9. Chronic lymphocytic leukemia, present on admission, undergoing oral chemotherapy prior to hospitalization. - No records available thus far but patient appears to be on current chemotherapy per family. - Neupogen given per Dr. Benavides's recommendations. - Heme/Onc consulted. Appreciate time and expertise. 10. Acute encephalopathy, present on admission, active. - Patient has a recent history of acute confusion with hospital admission and resolution of confusion during those stays. 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 - Sedation titrated down but continues on fentanyl and propofol. - CT head showed no acute intracranial process. Repeat 10/05 confirmed no changes. - Lumbar puncture with high opening pressure. CSF clear, WBC 19, RBC 2, Mononuclear WBCs 100, Polynuclear WBCs 0, Glucose 75, Protein 58. 11. Decubitus ulcer, present on admission, active. - Wound culture grew bacteroides fragillis. - Metronidazole stopped. - Wound care consulted. 12. Yannick albicans present in urine, not present on admission, active. - Micafungin 150 mg Q24H. 13. Anemia requiring transfusion - Multifactorial (infection,CKD,hemodilution) - Transfused 3 units PRBCs on 10/04-10/05. - Hb 7.2 today 10/07. 14. Hypertension - Metoprolol 25 BID - Hydralazine 25 mg TID - Amlodipine 2.5 mg daily. 15. Hyperglycemia - Insulin drip started. Disposition: Patient remains critically ill and in the CCU. Overall his prognosis is guarded. Family change CODE STATUS to DNR/DNI. Further discussions with family throughout the weekend to discuss tracheostomy versus compassionate extubation. Yesterday's conversation family was leaning towards compassionate extubation as patient had documented he would not want to be sustained longer than a week or 2 with a feeding tube. GI Prophylaxis: H2 germaine VTE Prophylaxis: Sub-Q Heparin (Unfractionated) VTE Mechanical Devices: Intermittant Pneumatic CD Resuscitation Status: CPR: Attempt Resuscitation Limited Interventions: [facility]Defibrillation, [facility], Medications and IV Fluid Attending Statement patient seen and examined with Dr Lama .I agree with the history,exam, impression and plan as outlined above MATTHEW LAMA DO Oct 09, 2016 07:45 Arvind Stockton MD Oct 09, 2016 16:46
[2016-10-09] MEDS: Dextrose 5% 1,000 ML IV SCH ×2 (15:10→22:15)
[2016-10-09] MEDS ORDERED: Meropenem Inj 1,000 MG in 0.9% Sodium Chloride 50 ML IV SCH ×2 (16:30→20:01)
[2016-10-09 16:54] LABS: APPEARANCE,URINE CLEAR (CLEAR,HAZY); COLOR,URINE YELLOW (YELLOW)
[2016-10-09 16:55] LABS: OCCULT BLOOD,URINE LARGE (NEGATIVE); UROBILINOGEN,URINE NORMAL (NORMAL)
[2016-10-09] MEDS ORDERED: Potassium Chloride 20 mEq/15 mL Oral Soln(K 3 - 3.7 & Creat < 2) TUBE ONE (19:50)
--- NOTE | 2016-10-09 20:07 | NUR ---
Mentation.. Pt has been less responsive with minimal eye opening. Did not participate or acknowledge any physical therapy and would not follow commands while assisted in dangling on edge of bed. Will pull away from oral care though. Taken to MRI on vent for brain MRI accompanied by RN and RT. Pt marixa procedure well but since coming back to room has noted to have Spo2 drifts into the 89% range. Remains hypertensive. One dose of Labetolol 20 given. Family here and updated on status.
[2016-10-09] MEDS ORDERED: Insulin GLARgine 100 Unit/mL Syringe SUBQ SCH (21:00)
[2016-10-10] VITALS (17 sets, daily range): BP systolic 92–191; BP diastolic 43–119; PULSE 63–100; RESP 21–22; O2SAT 89–96
[2016-10-10] MEDS: Chlorhexidine 0.12% 15 mL Oral Solution MT SCH ×6 (00:42→20:48)
[2016-10-10] MEDS: Meropenem Inj 1,000 MG in 0.9% Sodium Chloride 50 ML IV SCH ×3 (00:42→16:30)
[2016-10-10] MEDS: Insulin Human REGular Inj 100 UNIT in 0.9% Sodium Chloride-Pha MIX 100 ML IV SCH (04:47)
[2016-10-10] MEDS: Furosemide Inj 100 MG in 0.9% Sodium Chloride 90 ML IV SCH ×2 (04:49→16:30)
[2016-10-10 05:34] LABS: Mean Corpuscular Hemoglobin 28.7 pg (27.0-35.0); Mean Corpuscular Volume 97.1 fL (81-100); Platelet Count 232 bil/L (150-400)
--- NOTE | 2016-10-10 05:56 | NUR ---
P: Hypertension I: Lasix drip, HS lopressor and hydralazine via OGT E: SBP ranging from 150-180s. Tele SR, occasional ST. MAX temp 38.4, PO tylenol given. UOP 100ml+/hr, lasix drip at 10mg/hr. Tolerating TF. NonDka insulin drip. IVF DW5 for hypernatremia. Generally breathing over vent rate. 89% on FI02 35%. Increase to 50%, sats in the low-mid 90s. Rarely opens eyes. Not moving extremities. Not following cues. OFF sedation since 1100 10/08/16.
[2016-10-10 06:05] LABS: BASOPHILS % (AUTO) 1 % (0-3); EOSINOPHILS % (AUTO) 7 % (0-5); MONOCYTES % (AUTO) 23 % (4-12); NEUTROPHILS % (AUTO) 24 % (40-74)
[2016-10-10 06:17] LABS: Magnesium 1.8 mg/dL (1.6-2.6)
--- NOTE | 2016-10-10 06:24 | ABG ---
DateTimeAnalyzed 06:19:00 -_ pH ____7.440 - 7.350 7.450 pCO2 ___55.3__ -mmHg 35.0 45.0 pO2 ___72.1__ -mmHg 69.0 116 HCO3- ___36.9__ -mmol/L 22.0 26.0 ABE ___11.7__ -mmol/L -2.0 2.0 tHb ____7.6__ -g/dL O2Hb ___93.5__ -% COHb ____1.8__ -% MetHb ____0.8__ -% sO2 ___96.0__ -% 25.0 FIO2 ___50.0__ -% PEEP ____7.0__ -cmH2O Set_RR ___20.0__ -b/min Vt __450.0__ -L Drawn By RB - Date/Time Notified____ 06:24:00 -_ Oxygen Device 1 VENTILATOR - Notified By RB - Notified Whom RN - B 746 -mmHg tO2 ___10.1__ -Vol% Jeevan test _Positive -
[2016-10-10] MEDS: Dextrose 5% 1,000 ML IV SCH (06:54)
[2016-10-10] MEDS ORDERED: Magnesium Sulf 2 Gm/50mL Water 2 GM in IV Premix 1 EACH IV ONE (07:50)
[2016-10-10] MEDS ORDERED: KCl 40 mEq/100 mL (CENTRAL) 40 MEQ in IV Premix 1 EACH IV ONE ×2 (07:50→18:05)
[2016-10-10] MEDS: LacriLube S.O.P. 3.5 Gm Ophthalmic Ointment BOTH_EYES SCH ×2 (08:00→20:48)
[2016-10-10] MEDS: 0.9% Sodium Chloride 250 ML IV SCH (08:10)
[2016-10-10] MEDS: Dexmedetomidine 400 mCg/100 mL 400 MCG in IV Premix 1 EACH IV SCH ×2 (08:22→23:32)
[2016-10-10] MEDS: Famotidine Inj 20 MG in IV Premix 1 EACH IV SCH ×2 (08:30→22:06)
[2016-10-10] MEDS: Heparin 5,000 Unit/mL Inj SUBQ SCH ×2 (09:00→20:52)
[2016-10-10] MEDS: Senna Leaf Extract 528 mg/15 mL Syrup PO SCH ×2 (09:00→20:30)
[2016-10-10] MEDS: DAPTOmycin Inj 750 MG in 0.9% Sodium Chloride 50 ML IV SCH (09:00)
--- NOTE | 2016-10-10 09:08 | DRSVH ---
PROCEDURE: X-RAY CHEST ONE VIEW, PORTABLE ([id number]) INDICATIONS: intubated TECHNIQUE: One view of the chest was acquired. COMPARISON: [facility], CR, XR CHEST 1VW (PORTABLE), 10/09/2016, 5:01. FINDINGS: Surgical changes and devices: ET tube and NG tube are stable in appearance. PICC line is stable. Lungs and pleura: Trace bilateral effusions are stable compared to prior examination. Increased opaci fication in the left lung base is stable. Opacity involving the right lung has decreased in size and density. Mediastinum: Mediastinal contours appear normal. Heart size is normal. Bones and chest wall: No suspicious bony lesions. Overlying soft tissues appear unremarkable. IMPRESSION: Trace bilateral pleural fluid collections and left basilar opacity are unchanged. Right l natan opacification is resolving. Dictated by: Merry Robison MD, PhD on 10/10/2016 at 9:06 Approved by: Merry Robison MD, PhD on 10/10/2016 at 9:07
[2016-10-10] MEDS: Micafungin Inj 150 MG in Dextrose 5% 100 ML IV SCH (09:12)
--- NOTE | 2016-10-10 10:11 | NUR ---
[facility]'s information provided to DPOA - per telephone. Jessica Duffy, TOBACCO DIPPER
--- NOTE | 2016-10-10 10:13 | NUR ---
Social work note - Continued d/c planning BARK GRINDER spoke with pt's son Duane on the phone. Duane states that pt was doing better a few days ago, has gotten worse. MD identifies that he continues on vent - increased O2 needs. Palliative care meeting planned for Wednesday to identify goals of care. Family is aware that pt may not improve. BARK GRINDER active listened and provided support. Plan: Developing - Goals of care meeting to determine hospice/comfort care. KEILY Bailey
[2016-10-10] MEDS ORDERED: Lidocaine PF 2% 10 mL Inj ONE (11:33)
[2016-10-10] MEDS ORDERED: Lidocaine Topical 2% 30 mL Jelly ONE (11:33)
--- NOTE | 2016-10-10 11:40 | PROG NOTE ---
[address] [address] PROGRESS NOTE PATIENT: BRITTNEY CASILLAS : 1940 MR#: [id number] ADMIT: 09/21/2016 JOB ID: [id number] DATE: 10/10/2016 PULMONARY CRITICAL CARE PROGRESS NOTE: The patient is a 76-year-old man with history of CLL, admitted with varicella zoster meningoencephalitis, MSSA bacteremia, septic shock and respiratory failure. INTERVAL HISTORY: Continues to spike fevers as high as 38.4 last night. Oxygenation worsened yesterday since return from MRI and he is currently on 50% FiO2 with PEEP of 7. REVIEW OF SYSTEMS: Unable to obtain. PHYSICAL EXAMINATION: Vital signs reviewed. T-max 38.4 as above, pulse 83, respirations 21, BP 175/57, sats 95% on 50% FiO2. General: Intubated. Not on any sedation but currently unresponsive. According to nursing staff, he grimaces sometimes with care but does not track or follow commands. Chest: Clear to auscultation anteriorly but decreased breath sounds at the bases more so on the left. Skin rashes on the arms with crusted over vesicles on the forehead, etc., as before. Intake and output: He is 700 cc net negative. LABORATORIES: Reviewed. WBC is up to 15 from 12 yesterday. Hemoglobin is 8. Platelets 232. Chemistry also reviewed. Bicarbonate is 34, stable. Sodium remains high, 150. Potassium 3.2. Creatinine 1.1. Procalcitonin is up slightly to 0.78 from 0.49 previously. Cultures: No new growth on sputum, blood or urine. Also of note on labs, there are no blasts on today's CBC. Chest x-ray from today shows a worsening left basilar infiltrate plus-minus effusion. Arterial blood gas shows pH 7.44, pCO2 of 55, pO2 of 72, bicarbonate of 36. ASSESSMENT AND RECOMMENDATIONS: 1. Acute hypoxic respiratory failure. 2. Septic shock-resolved. 3. Varicella zoster meningoencephalitis. 4. Acute kidney injury-resolved. 5. MSSA bacteremia. 6. Fevers. 7. CLL. 8. Suspected candidemia based on positive urine and sputum culture without blood culture. 9. Acute encephalopathy. A 76-year-old man with CLL presenting with varicella zoster meningoencephalitis and MSSA bacteremia on September 22, with respiratory failure and septic shock. He is off pressors but remains encephalopathic, off all sedation since October 08, still unresponsive. He had an MRI of the brain yesterday looking for any signs of neurologic damage from his varicella zoster. There appears to be nothing acutely abnormal that would suggest a poor prognosis so at this point we continued to rely on his neuro examination. From a respiratory standpoint, his oxygenation has actually worsened overnight and he is up to 50% FiO2, so I increased his PEEP back up to 10 cm. This is despite ongoing diuresis. This in combination with his new/worsening left basilar infiltrate on chest x-ray, persistent fever, worsening hypoxia and rising white count has me concerned for ventilator associated pneumonia. Unfortunately his antibiotics had been broadened again to meropenem within the last 48 hours so I am not sure what the yield would be but I would like to attempt a bronchoscopy with lavage in the left lower lobe looking for ventilator associated pneumonia. Current antibiotics include meropenem which was added again on October 09. Will continue daptomycin, micafungin. Acyclovir course has been completed. I am going to call his family and get consent for the bronchoscopy and plan on proceeding today. No changes in our plan to monitor his neurologic status over the next 48 hours or so and see if he improves. Family did indicate that he would not want to be kept alive in poor neurologic state, so at this point we are deferring trach or other long-term life support measures until we have a better idea of neurologic status over the next day or two. He is DNR. CRITICAL CARE TIME: 60 minutes. MERYL
--- NOTE | 2016-10-10 11:48 | PCM.PNMED ---
Subjective Date of Service Oct 10, 2016 Amy Villegas is a 76-year-old male with CLL currently on chemotherapy with past medical history significant for COPD who was transferred from [facility] due to septic shock and respiratory failure secondary to staph bacteremia and disseminated zoster. Hospital day 20. Vent day 20. Overnight: Tmax of 38.4. Patient remains off sedation since 1100 at 2/2. Today: Intubated without sedation. Withdraws to pain. ETT secretions have decreased. ROS is not obtainable. Exam Vital Signs Vital Sign - Last Date Time Temp Pulse Resp B/P Pulse Ox O2 Delivery O2 Flow Rate FiO2 10/10/16 04:30 Ventilator 10/10/16 04:30 37.7 87 191/68 89 50 10/10/16 01:29 22 Intake and Output 10/09/16 10/09/16 10/10/16 Cumulative From/Thru 15:00 23:00 07:00 09/21/16 19:30 - 10/10/16 05:14 Intake Total 1979 ml 3005 ml 609220 ml Output Total 2400 ml 1825 ml 37549 ml Balance -421 ml 1180 ml 95475 ml Intake Oral 0 ml 60 ml IV Total 454 ml 1205 ml 82302 ml Tube Feeding 673 ml 698 ml 21593 ml Packed Cells 925 ml Tube Irrigant 852 ml 1102 ml 81498 ml Output Urine Total 2400 ml 1650 ml 00285 ml Stool Total 0 ml 175 ml 2960 ml Gastric Drainage Total 2015 ml Chest Tube Drainage Total 390 ml # Bowel Movements 8 Exam General: Intubated and sedated; no acute distress; withdraws to pain. HEENT: ETT in place Cardiac: Regular rate and rhythm, no murmurs appreciated Respiratory: Faint crackles at bases bilaterally; no wheezes Abdomen: Soft, nontender, nondistended; obese Extremities: Bilateral lower extremity pitting edema and dependent sacral edema. Excoriations/blisters present on bilaterally wrists. : Scrotal edema present. Ischial ulcer improved. Skin: Multiple scabbed, healed lesions noted on abdomen and left shoulder. Neuro: Patient sedated and intubated. Psych: Patient sedated and intubated. Lines: Left PICC, ETT, OG, [place], FMS Lab and Diagnostics Lipase 220 AST 83 ALT 57 Procalcitonin 0.78 Result Diagram: 10/10/16 0445 10/10/16 0445 Microbiology CSF positive for VZV. MRSA screen negative. Buttock culture positive for staphylococcus aureus resistant to tetracycline and bacteroides fragilis. Blood cultures 2:4 positive for staphylococcus aureus resistant to tetracycline. Sputum positive for staphylococcus aureus resistant to tetracycline. Clostridium difficile PCR negative. Fungal blood cultures x 2 pending. Urine grew yannick albicans. X-Rays, CTs and MRIs X-RAY CHEST ONE VIEW, PORTABLE IMPRESSION: No change in multifocal pneumonia. Dictated by: Adalberto Barker M.D. on 10/04/2016 at 7:40 Approved by: Adalberto Barker M.D. on 10/04/2016 at 7:41 X-RAY CHEST ONE VIEW, PORTABLE IMPRESSION: 1. Support lines and tubes as above. 2. Bilateral pleural effusions, right greater than left. 3. Bilateral lower lung consolidation, increasing involving the right lung base and similar involving the left. Dictated by: Francisco Javier BASSETT Interpreted: Merry Robison MD on 09/23/2016 at 9:45 Transcribed by: JIM on 09/23/2016 at 9:45 Approved by: Merry Robison MD, PhD on 09/23/2016 at 16:56 X-RAY CHEST ONE VIEW, PORTABLE IMPRESSION: 1. Support lines and tubes as above. 2. Abnormal opacity within the right lung and the lung bases consistent with pulmonary edema and/or diffuse bilateral inflammatory process. Recommend clinical correlation and followup. Dictated by: Francisco Javier BASSETT Interpreted: Jammie Drake MD on 09/22/2016 at 9: 13 . Additional Diagnostics DateTimeAnalyzed 06:19:00 -_ pH ____7.440 - 7.350 7.450 pCO2 ___55.3__ -mmHg 35.0 45.0 pO2 ___72.1__ -mmHg 69.0 116 HCO3- ___36.9__ -mmol/L 22.0 26.0 FIO2 ___50.0__ -% PEEP ____7.0__ -cmH2O Set_RR ___20.0__ -b/min Vt __450.0__ -L EEG IMPRESSION: This electroencephalogram performed in the comatose state is abnormal. The slow background activity is suggestive of moderate cerebral cortical dysfunction/encephalopathy. This is a nonspecific finding and may be seen in a wide variety of different clinical conditions, including secondary to medication effect, as well as medical conditions such as toxic metabolic, hypoxic, inflammatory, autoimmune and infectious states. If clinically indicated, a repeat study performed off all fall sedative agents may be helpful. The propofol was held before this electroencephalogram was performed. Clinical correlation is advised. Seamus Cee MD 10/04/16 1904. Assessment & Plan Magdaleno Villegas is a 76-year-old male with CLL currently on chemotherapy with past medical history significant for COPD who was transferred from [facility] due to septic shock and respiratory failure. Currently being treated for staph bacteremia, disseminated zoster, and Yannick albicans. Hospital day 20. Vent day . 1. Staphylococcus bacteremia, present on admission. Active. - Blood cultures positive on two separate occasions. First with staphylococcus aureus and then with coag negative staphylococcus. - Repeat blood cultures drawn on 10/05 with no growth. - Nafcillin continuos infusion from 09/24-09/30. - Meropenem 09/30-10/06. - Daptomycin started 10/05 and continued. - IJ removed 10/06 and tip sent for culture. No growth to date. - Dr. Ritter consulted, appreciate time and expertise. 2. Acute hypoxic respiratory failure, present on admission. Active. - Patient presented with severe hypoxia and was requiring 100% FiO2, 12 of PEEP , respiratory rate of 35, and tidal volumes were initially 600 mL but was quickly taken down to 470 mL. - Chest tube placed 09/25 due to hypoxemia secondary to large pleural effusion. Removed on 10/06. - Patient also has suspected underlying COPD which will complicate his pulmonary course. - Lasix drip started 10/06 to help improve respiratory status. - Sedation off since 10/08 at 1100. - Ventilator management per ICU team, appreciate the expertise 3. Febrile, not present on admission. Active. - Patient continues to spike fevers. Overnight Tmax of 39.2 C. - Concern for ventilator associated pneumonia is minimal as respiratory status has improved. Sputum cultures sent. - Workup results include: Upper and lower extremities negative for DVT. Lipase slightly elevated at 220. Pro-calcitonin 0.78. Repeat blood cultures 10/09 no growth to date. - Meropenem added to antibiotic regimen to broaden coverage. - Bedside ultrasound showed left sided pleural effusion. - Possible bronchoscopy later today. 4. Hypervolemic, not present on admission. Active. - Patient initially aggressively fluid resuscitated. - Patient 28 L positive cumulatively. Yesterday patient was net -3 L. - Lasix drip at 10. We will continue to aggressively diuresis. - Monitor electrolytes as patient may be developing a contraction alkalosis. 5. Septic shock requiring 3 pressors support, present on admission. Resolved. - Etiology multifactorial including disseminated zoster, staph bacteremia, and decubitus ulcer on left ischial tuberosity. - [place] [facility] [place] hypotensive and unresponsive to fluids and was started on three pressors and transferred to [facility]. - On admission here patient tachycardic, pro-calcitonin 21.82, lactic acid of 4.8 (lactic acid at [facility] was 1.4). - Norepinephrine titrated off on 09/28. Restarted 10/02. Titrated off again on . - Blood cultures and lumbar puncture as above. - Dr. Ritter consulted, appreciate the expertise. 6. Disseminated zoster, present on admission. Treatment completed. - Encephalitis, hepatitis, and pneumonitis secondary to disseminated zoster - Evidence of multiple lesions in multiple dermatomes. Currently crusted. - Acyclovir course of 17 days completed on 10/06 - Lumbar puncture with high opening pressure. CSF clear, WBC 19, RBC 2, Mononuclear WBCs 100, Polynuclear WBCs 0, Glucose 75, Protein 58. - EEG completed 10/02. Results as above. - CT head 10/05 as above. - Dr. Ritter consulted, appreciate the expertise. 7. Acute kidney injury, present on admission. Resolved. - Patient presented to [facility] with a creatinine of 0.8, however over the subsequent days prior to his transfer here he was having a slow increase in his creatinine up to 1.6 and after pressure support his creatinine on arrival here was 2.21. - This acute kidney injury is likely due to hypoperfusion/prerenal secondary to dehydration and excessive pressure support with 2 peripheral vasoconstrictors and Levophed. Likely has a degree of ATN. - Lasix drip started 10/06. BUN and creatinine have continued to improve. - Continues to have good urine output. - Continue to monitor I and O and daily BMP - Nephrology consulted. Appreciate time and expertise. 8. Hypernatremia, not present on admission. Active. - Free water flushes increased 200 ml Q1H. - D5 water at 75 mL per hour. - Meds mixed in d5w. - Continue to monitor with BMP. 9. Chronic lymphocytic leukemia, present on admission, undergoing oral chemotherapy prior to hospitalization. - No records available thus far but patient appears to be on current chemotherapy per family. - Neupogen given per Dr. Benavides's recommendations. - Heme/Onc consulted. Appreciate time and expertise. 10. Acute encephalopathy, present on admission. Active. - Patient has a recent history of acute confusion with hospital admission and resolution of confusion during those stays. 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 - CT head showed no acute intracranial process. Repeat 10/05 confirmed no changes. MRI results as above. - Lumbar puncture with high opening pressure. CSF clear, WBC 19, RBC 2, Mononuclear WBCs 100, Polynuclear WBCs 0, Glucose 75, Protein 58. 11. Decubitus ulcer, present on admission. Improving. - Wound culture grew bacteroides fragillis. - Metronidazole stopped. - Wound care consulted. 12. Yannick albicans present in urine, not present on admission. Active. - Micafungin 150 mg Q24H. 13. Anemia requiring transfusion, not present on admission. Active. - Multifactorial (infection,CKD,hemodilution) - Transfused 3 units PRBCs on 10/04-10/05. 14. Hypertension, not present on admission. Active. - Metoprolol 50 BID - Hydralazine 50 mg TID - Amlodipine 5 mg daily. 15. Hyperglycemia, not present on admission. Active. - Insulin drip per protocol. Disposition: Patient remains critically ill and in the CCU. Sedation has been off since 10/08. Patient has sat at side of bed with PT. Overall prognosis guarded as patient continues to spike fevers. Ongoing conversations with family about goals of care. GI Prophylaxis: H2 germaine VTE Prophylaxis: Sub-Q Heparin (Unfractionated) VTE Mechanical Devices: Intermittant Pneumatic CD Resuscitation Status: CPR: Attempt Resuscitation Limited Interventions: Cardioversion/Defibrillation, Intubation w Mech Vent, Medications and IV Fluid Attending Statement patient seen and examined with Dr Lama ,I agree with history,exam ,assessment and plan as outlined above . MATTHEW LAMA DO Oct 10, 2016 07:09 Arvind Stockton MD Oct 10, 2016 12:06
[2016-10-10] MEDS ORDERED: fentaNYL-PF 50 mCg/mL 2 mL Inj ONE (11:55)
[2016-10-10] MEDS: Propofol Inj 1,000,000 MCG in IV Premix 1 EACH IV SCH (11:55)
[2016-10-10] MEDS ORDERED: KCl 20 mEq/100 mL(CENTRAL) 20 MEQ in IV Premix 1 EACH IV ONE (12:00)
--- NOTE | 2016-10-10 13:42 | ENDO ---
[address] [address] ENDOSCOPY PROCEDURE PATIENT: BRITTNEY CASILLAS : 1940 MR#: [id number] ADMIT: 09/21/2016 JOB ID: [id number] PROCEDURE: Bronchoscopy. INDICATION: Suspected ventilator associated pneumonia, fever, hypoxia. DESCRIPTION OF PROCEDURE: The patient is intubated for respiratory failure. He was given a push of IV fentanyl 50 mcg for this procedure. Additional lidocaine was pushed through the ET tube. The scope was passed through the ET tube, into the trachea. Trachea was visualized and normal. There was some thick secretions in the ET tube along the way. Initially I did a left-sided airway inspection. This was notable for a couple of nodules/lesions on the left mainstem medial aspect just before the left upper lobe takeoff. These are highly suspicious for either malignancy or infection. We proceeded to complete the airway inspection on the left and found some thick yellow secretions in the medial basal segment of the left lower lobe. The remaining airway inspection on the left was normal. We then proceeded with an airway inspection on the right. In the right main stem there was a large thick yellow mucus plug extending all the way down. Prolonged repeated suctioning with removal of the scope multiple times was required to remove this plug. Finally we were able to visualize the right-sided airways and these were all patent but with some erythema and mucosal edema. We initially did a lavage in the left lower lobe, both anterior and medial segments. A total of over 500 cc of saline was administered with minimal return from this area. We then proceeded to do a lavage in the right middle lobe, which was also pooled with the sample from the left lower lobe. We did biopsies of the lesions in the left main stem; at least 4-5 biopsies were done in this area, with some bleeding that subsided with administration of topical epinephrine. The patient tolerated the procedure well. FINDINGS: 1. Two nodules with whitish tip on the mucosa measuring half a centimeter or less seen in the left mainstem bronchus on the medial aspect, just before the left upper lobe takeoff. 2. Thick yellow secretions in the medial basal segment of the left lower lobe. 3. Large thick yellow mucus plug completely filling the right mainstem bronchus and all distal airways that was suctioned out. SAMPLES: 1. BAL left lower lobe and right middle lobe-pooled. 2. Biopsies times 4-5 of the left mainstem nodules-endobronchial biopsies sent for pathology. TESTING: AFB, bacterial fungal cultures, viral cultures, including HSV and VZV, were sent as well as cytology on the BAL. We sent the biopsies for path. COMPLICATIONS: Less than 5 cc of estimated blood loss. No desaturation. The patient tolerated the procedure well. We are waiting on results. [facility]
--- NOTE | 2016-10-10 15:18 | NUR ---
NUTRITION FOLLOW-UP ASSESS: 76 YO M admitted to CCU with acute hypoxic respiratory failure, severe sepsis, MSSA bacteremia and disseminated zoster with meningoencephalitis. Pt remains ventilator dependent, with worsening respiratory status and fevers. Bronchoscopy today revealed two nodules with whitish tip on the mucosa measuring half a centimeter or less seen in the left mainstem bronchus on the medial aspect, thick yellow secretions in the medial basal segment of the left lower lobe and large thick yellow mucus plug completely filling the right mainstem bronchus and all distal airways that was suctioned out. Enteral formula was changed to diabetes formula yesterday, with appropriate glucose response. PMHX: CLL with poor prognosis, HTN, hypercholesterolemia, GERD, cataracts, COPD. LABS: Reviewed. Na 150, K+ 3.2, CO2 34, BUN 55, Cr 1.11, Glu 118, Ca 7.9, AST 83, ALT 57, Alb 3.1. MEDS: Reviewed. Lopressor, Lasix, Insulin. Sedation discontinued 10/08. GI: Stool via FMS, 125 ml (10/09). SKIN: Mario 12, Disseminated zoster nearly resolved, non-stageable pressure injury on his left ischium. WT: 127.3 kg, BMI: 42.0 kg/m2, Admit wt: 116.0 kg (BMI 38.9 kg/m2), IBW: 70 kg NUTRITION SUPPORT: Glucerna 1.5 @ goal rate 70 ml/hr, providing 2310 kcal, 127 g protein, sufficient to meet 100% nutrient needs. Flush dose remains 100 ml/hr., to provide a total of 3620 ml/d H2O. ESTIMATED NEEDS: BMI (based on Admit Wt; re-estimated 10/07) Calories: 0849-3353 kcal/day (20-22 kcal/kg Admit BW) Protein: 85-105 g/day (1.2-1.5 g/kg IBW) Fluid: 2400 ml/day (~1 ml/kcal/d) NUTRITION DIAGNOSIS: 1) Inadequate oral intake related to decreased ability to consume sufficient energy as evidenced by current vent / NPO status - IMPROVED WITH ENTERAL FEEDING AT GOAL RATE. 2)Altered nutrition-related labs related to uncontrolled blood glucose, as evidenced by recent blood glucose labs in the upper 200's - SIGNIFICANTLY IMPROVED. NUTRITION INTERVENTION: 1) No additional intervention at this time. MONITOR/EVALUATE: Enteral feeding tolerance, vent / NPO status, wt, labs, GI, POC, nutrition status. Follow per high nutrition risk guidelines. Addendum: 10/10/16 at [address] In the event Glucerna 1.5 out of stock tomorrow, will substitute Pulmocare formula with lowest carbohydrate content of alternatives.
--- NOTE | 2016-10-10 16:58 | PROG NOTE ---
[address] [address] PROGRESS NOTE PATIENT: BRITTNEY CASILLAS : 1940 MR#: [id number] ADMIT: 09/21/2016 JOB ID: [id number] DATE: 10/10/2016 INFECTIOUS DISEASE FOLLOWUP NOTE: REASON FOR FOLLOWUP: Disseminated VZV with encephalitis, MSSA bacteremia, prolonged ventilator dependent respiratory failure, encephalopathy versus encephalitis. INTERVAL HISTORY: Over the past 24 hours the patient has gone backwards a bit in that he has had additional fevers and has required a step-up in his FiO2. He will now open his eyes sometimes to voice or touch but does not seem to follow any commands or be interactive beyond that. Today, because of concerns about his persistent fevers, Dr. Kenyon performed a bronchoalveolar lavage and as part of that the patient required an additional bolus of fentanyl. This case discussed in detail with the patient's multiple family members who are present in the room when I examined the patient. PHYSICAL EXAMINATION: Reveals a gentleman who is now afebrile at 36.8 but during the night was febrile to 38.4. Pulse is in the 90s. Blood pressure 156/61; he is on no vasopressor agents. He is currently on 100% FiO2, but prior to the bronch he was on 50%, so he will likely be going down quite a bit. His urine output continues to be excellent and he is currently on a Lasix drip. His weight is 127 kg. Examination of the eyes reveals that they now open, apparently to voice when his name is called, and no conjunctival hemorrhage is seen anymore. The oral cavity is notable for the endotracheal tube and orogastric tube. The neck is without adenopathy. The zoster lesions on the upper torso and especially the left shoulder have crusted over. The lungs are fairly clear anteriorly, with a few rales heard at the left base. Cardiac tones without significant murmur. The abdomen is soft, obese, and without focal mass. The scrotum is swollen with Prado catheter. Lower extremities are edematous, with warm and well perfused feet. LABORATORY DATA: The patient's white blood count is currently 15,000 and his platelet count 232,000, which is much improved. He has 8% band forms today and 1% metamyelocytes. His creatinine is 1.11, which is stable. His AST has increased to 83 and his ALT to 57. His alk phos is normal at 105. His albumin is 3.1. His recent Fungitell has come back negative. Bronch from today is so far negative, but of course it was just done a couple hours ago. Only a few polys and no organisms were seen on the Gram stain. Many other cultures and studies are pending. Urine cultures from yesterday as well as blood fungal cultures are negative. Sputum from yesterday likewise negative. C. diff from yesterday that we had ordered is negative. We have no positive cultures going back now over a week. The last things we have were a coag-negative staph from a right-sided IJ line which was pulled and the urine which grew Gisel twice. IMAGING: Includes today's chest x-ray which shows trace bilateral pleural effusions and a left basilar opacity. His right lung infiltrate is resolving. A brain MRI scan was finally done yesterday; it shows almost complete resolution of lobe was thought to be PRES on a prior MRI done when he was admitted over three weeks ago. There is some mild to moderate to severe volume loss. No area of infarction is noted. Pansinusitis was seen. IMPRESSION: This is an extremely complicated case of a gentleman who presented with disseminated VZV which included VZV encephalitis. He also had MSSA bacteremia of unknown source which may or may not represent endocarditis as we do not have a REGINALD to formally exclude that process. The patient has now been in the hospital a total of 20 days and his course has been up and down. Recently the patient was taken off all sedatives and has only awoken slightly, which is of great concern. EEG and MRI scan of the brain have not been diagnostic and the MRI does not suggest any great degree of brain destruction caused by his VZV encephalitis, but we cannot say lot more about it in terms of prognosis. He has been consistently treated for the past three weeks for his MSSA bacteremia as well as a coincident coag-negative Staph bacteremia we think arose from a right IJ. About 10 days ago the patient had some unexplained fevers and we found that both urine and sputum were positive for Gisel albicans so he has been on micafungin over the past 10 days or so. The patient started to have additional new fevers just within the past 2-3 days and as part of the evaluation of that we collected a wide variety of cultures and studies which have all been nondiagnostic so far. Meropenem was added empirically to the daptomycin and micafungin he had been receiving and he remains on those three antibiotics at this point. RECOMMENDATIONS: 1. A VZV PCR has been done on one of his wrist lesions, though I do not think in any way that the bilateral wrist lesions represent a recurrence of his disseminated zoster. 2. His rising LFTs are of concern. If this continues, he will need a right upper quadrant ultrasound. 3. We await the results of the bronchoscopy done today by Dr. Kenyon. 4. For today I would hold steady with the antibiotics which currently include daptomycin, meropenem, and micafungin. 5. This case was discussed with the nursing staff, respiratory therapy staff, and the patient's family.
[2016-10-10 17:14] LABS: Magnesium 2.3 mg/dL (1.6-2.6)
[2016-10-11] VITALS (12 sets, daily range): BP systolic 145–179; BP diastolic 50–62; PULSE 82–94; RESP 20–23; O2SAT 93–96
[2016-10-11] MEDS: Chlorhexidine 0.12% 15 mL Oral Solution MT SCH ×6 (00:31→21:02)
[2016-10-11] MEDS: Meropenem Inj 1,000 MG in 0.9% Sodium Chloride 50 ML IV SCH ×3 (00:31→17:26)
[2016-10-11] MEDS: Dextrose 5% 1,000 ML IV SCH ×4 (01:06→20:50)
[2016-10-11] MEDS: Furosemide Inj 100 MG in 0.9% Sodium Chloride 90 ML IV SCH ×2 (01:06→17:33)
--- NOTE | 2016-10-11 01:24 | NUR ---
neuro pt opens eyes to voice, pt turns eyes toward voice slowly when spoken to, pt grimaces with oral care, pt attempts to close eyes when pupils checked for reaction to light, no movement of extremities seen, very weak t/o, scd's on, bed on continuous rotation, generalized pitting edema t/o, pt on lasix gtt at 10ml/hr, large uop per f/c, kcl rider given, k level checked again, left picc intact, abd round, liquid stool per fms, calmoseptine applied to reddened wilfred area, tf per orders, hob up, ogt placement -wnl, residuals ranging from 10ml initially to 190ml at mn, insulin gtt per non dka protocol, bg low 100's, ls- course t/o, sml amount of thin creamy blood tinged sputum per ett, oral care done, hob up, resp rate - 20-, sats mid 90's, see ccu flow sheet, plan:continue with vent support, k replacement, family at bedside during evening portion of shift --expressed thankfulness for care, Addendum: 10/11/16 at 0639 by BALJINDER FISCHER RN kcl rider finished at 0545, am labs drawn post rider infusion, am labs still pending,
[2016-10-11] MEDS ORDERED: KCl 40 mEq/100 mL Premix (K 3 - 3.7 & Creat < 2) IV ONE ×2 (01:45→21:45)
[2016-10-11] MEDS: Insulin Human REGular Inj 100 UNIT in 0.9% Sodium Chloride-Pha MIX 100 ML IV SCH (05:04)
--- NOTE | 2016-10-11 05:15 | ABG ---
DateTimeAnalyzed 05:07:16 -_ pH ____7.489 - 7.350 7.450 pCO2 ___53.4__ -mmHg 35.0 45.0 pO2 ___72.0__ -mmHg 70.0 100 HCO3- ___40.5__ -mmol/L 22.0 26.0 ABE ___15.8__ -mmol/L -2.0 2.0 tHb ____8.6__ -g/dL 12.0 18.0 O2Hb ___94.3__ -% 95.0 COHb ____1.5__ -% 1.5 MetHb ____0.2__ -% 0.4 1.5 sO2 ___95.9__ -% 25.0 FIO2 ___21.0__ -% PEEP ___10.0__ -cmH2O Set_RR 20 -b/min Vt __450.0__ -L Drawn By MD - Date/Time Notified____ 05:15:00 -_ Oxygen Device 1 VENTILATOR - Notified By MD - Notified Whom RN - B 747 -mmHg K+ ____3.3__ -mmol/L tO2 ___11.5__ -Vol% Jeevan test N/A -
[2016-10-11 06:24] LABS: Mean Corpuscular Hemoglobin 28.7 pg (27.0-35.0); Mean Corpuscular Volume 98.3 fL (81-100); Platelet Count 287 bil/L (150-400)
[2016-10-11 07:11] LABS: BASOPHILS % (AUTO) 0 % (0-3); EOSINOPHILS % (AUTO) 0 % (0-5); MONOCYTES % (AUTO) 10 % (4-12); NEUTROPHILS % (AUTO) 43 % (40-74)
[2016-10-11 07:12] LABS: Magnesium 2.2 mg/dL (1.6-2.6); Phosphorus 4.2 mg/dL (2.5-4.9)
[2016-10-11] MEDS: LacriLube S.O.P. 3.5 Gm Ophthalmic Ointment BOTH_EYES SCH ×2 (08:00→21:02)
[2016-10-11] MEDS ORDERED: EPINEPHrine 0.1 mg/mL 10 mL Syringe ONE (08:03)
[2016-10-11] MEDS: 0.9% Sodium Chloride 250 ML IV SCH ×2 (08:10→19:33)
[2016-10-11] MEDS: Senna Leaf Extract 528 mg/15 mL Syrup PO SCH ×2 (08:30→21:02)
[2016-10-11] MEDS: Famotidine Inj 20 MG in IV Premix 1 EACH IV SCH ×2 (08:30→21:02)
[2016-10-11] MEDS: DAPTOmycin Inj 750 MG in 0.9% Sodium Chloride 50 ML IV SCH (08:30)
--- NOTE | 2016-10-11 08:46 | DRSVH ---
PROCEDURE: X-RAY CHEST ONE VIEW, PORTABLE ([id number]) INDICATIONS: 76-year-old intubated male. TECHNIQUE: One view of the chest was acquired. COMPARISON: [facility], CR, XR CHEST 1VW (PORTABLE), 10/10/2016, 4:33. [facility], CR, XR CHEST 1VW (PORTABLE), 10/09/2016, 5:01. [facility], CR, XR CHEST 1VW (TIP BLE), 10/08/2016, 5:25. FINDINGS: Surgical changes and devices: Endotracheal tube, esophagogastric tube, and left PICC remain unchanged in positions. Lungs and pleura: There are persistent right basilar airspace opacities, most confluent in the retroc ardiac region. Small dependent left pleural effusion persists. No pneumothorax. Mediastinum: Mediastinal contours appear normal. Heart size is normal. Bones and chest wall: No suspicious bony lesions. Overlying soft tissues appear unremarkable. IMPRESSION: Persistent bibasilar atelectasis and/or bronchopneumonia, as well as small dependent left pleural effusion. Dictated by: Pool Carl M.D. on 10/11/2016 at 8:43 Approved by: Pool Carl M.D. on 10/11/2016 at 8:45
[2016-10-11] MEDS: Propofol Inj 1,000,000 MCG in IV Premix 1 EACH IV SCH (11:55)
--- NOTE | 2016-10-11 15:07 | PCM.PNMED ---
Subjective Date of Service Oct 11, 2016 Amy Villegas is a 76-year-old male with CLL currently on chemotherapy with past medical history significant for COPD who was transferred from [facility] due to septic shock and respiratory failure secondary to staph bacteremia and disseminated zoster now off sedation since 10/08. Hospital day 21. Vent day 21. Overnight: No significant elevation in temperature overnight. No acute events. Today: Intubated without sedation. Withdraws to pain. Opens eyes spontaneously. Per family report the patient localized to voice, followed commands and mouthed for water. ETT secretions have decreased. No changes in vent settings overnight or this AM. ROS is not obtainable. Exam Vital Signs Vital Sign - Last Date Time Temp Pulse Resp B/P Pulse Ox O2 Delivery O2 Flow Rate FiO2 10/11/16 11:01 83 145/52 96 50 10/11/16 10:00 37.1 22 Mechanical Ventilator Intake and Output 10/10/16 10/10/16 10/11/16 Cumulative From/Thru 15:00 23:00 07:00 09/21/16 19:30 - 10/11/16 05:00 Intake Total 2702 ml 2516 ml 761758 ml Output Total 1300 ml 3460 ml 3600 ml 70722 ml Balance -1300 ml -758 ml -1084 ml 05809 ml Intake Oral 30 ml 90 ml IV Total 1348 ml 1265 ml 93227 ml Tube Feeding 512 ml 550 ml 17922 ml Packed Cells 925 ml Tube Irrigant 812 ml 701 ml 70888 ml Output Urine Total 1300 ml 3100 ml 3200 ml 28138 ml Stool Total 150 ml 400 ml 3510 ml Gastric Drainage Total 210 ml 2225 ml Chest Tube Drainage Total 390 ml # Bowel Movements 8 Exam General: Intubated and sedated; no acute distress; withdraws to pain, opens eyes spontaneously but does not follow commands. HEENT: ETT in place Cardiac: Regular rate and rhythm, no murmurs appreciated Respiratory: Faint crackles at bases bilaterally; no wheezes Abdomen: Soft, nontender, nondistended; obese Extremities: Bilateral lower extremity pitting edema and dependent sacral edema. Excoriations/blisters present on bilaterally wrists. : Scrotal edema present. Ischial ulcer improved. Skin: Multiple scabbed, healed lesions noted on abdomen and left shoulder. Neuro: Patient sedated and intubated. Psych: Patient sedated and intubated. Lines: Left PICC, ETT, OG, Prado, FMS IVs and Medications Medications Reviewed: Medications were reviewed in detail Lab and Diagnostics Result Diagram: 10/11/16 0600 10/11/16 0600 Microbiology CSF positive for VZV. MRSA screen negative. Buttock culture positive for staphylococcus aureus resistant to tetracycline and bacteroides fragilis. Blood cultures 2:4 positive for staphylococcus aureus resistant to tetracycline. Sputum positive for staphylococcus aureus resistant to tetracycline. Clostridium difficile PCR negative. Fungal blood cultures x 2 pending. Urine grew yannick albicans. X-Rays, CTs and MRIs X-RAY CHEST ONE VIEW, PORTABLE IMPRESSION: No change in multifocal pneumonia. Dictated by: Adalberto Barker M.D. on 10/04/2016 at 7:40 Approved by: Adalberto Barker M.D. on 10/04/2016 at 7:41 MRI BRAIN WITH AND WITHOUT CONTRAST IMPRESSION: 1. Increased T2 signal in the parietal and occipital lobes identified by prior MRI obtained 09/15/16 is a most completely resolved compatible with resolving posterior reversible encephalopathy syndrome (PRES). 2. Moderate to severe diffuse volume loss. 3. No areas of infarction. 4. Minimal frontal subcortical white matter chronic microvascular ischemic changes. 5. Pansinusitis. 6. Fluid in the mastoid air cells bilaterally. Please correlate with clinical findings to differentiate serous fluid from mastoiditis. 7. Image quality degraded by patient motion. Dictated by: Merry Robison MD, PhD on 10/09/2016 at 14:32 12-lead ECG EKG: Normal sinus rhythm at 116 bpm, left axis deviation present, QTC 478, mild widening of QRS complex (104 ms). . Additional Diagnostics DateTimeAnalyzed 05:07:16 -_ pH ____7.489 - 7.350 7.450 pCO2 ___53.4__ -mmHg 35.0 45.0 pO2 ___72.0__ -mmHg 70.0 100 HCO3- ___40.5__ -mmol/L 22.0 26.0 EEG IMPRESSION: This electroencephalogram performed in the comatose state is abnormal. The slow background activity is suggestive of moderate cerebral cortical dysfunction/ encephalopathy. This is a nonspecific finding and may be seen in a wide variety of different clinical conditions, including secondary to medication effect, as well as medical conditions such as toxic metabolic, hypoxic, inflammatory, autoimmune and infectious states. If clinically indicated, a repeat study performed off all fall sedative agents may be helpful. The propofol was held before this electroencephalogram was performed. Clinical correlation is advised. Seamus Cee MD 10/04/16 0934. Assessment & Plan Magdaleno Villegas is a 76-year-old male with CLL currently on chemotherapy with past medical history significant for COPD who was transferred from [facility] due to septic shock and respiratory failure secondary to staph bacteremia and disseminated zoster now off sedation since 10/08. Hospital day 21. Vent day 21. 1. Staphylococcus bacteremia, present on admission. Active. - Blood cultures positive on two separate occasions. First with staphylococcus aureus and then with coag negative staphylococcus. - Repeat blood cultures drawn on 10/05 with no growth. - Nafcillin continuos infusion from 09/24-09/30. - Meropenem 09/30-10/06, restarted again 10/10 - Daptomycin started 10/05 and continued due to ongoing fevers of uncertain etiology. - IJ removed 10/06 and tip sent for culture. No growth to date. - Dr. Ritter consulted, appreciate time and expertise. 2. Acute hypoxic respiratory failure, present on admission. Active. - Patient presented with severe hypoxia and was requiring 100% FiO2, 12 of PEEP , respiratory rate of 35, and tidal volumes were initially 600 mL but was quickly taken down to 470 mL. - Chest tube placed 09/25 due to hypoxemia secondary to large pleural effusion. Removed on 10/06. - Patient also has suspected underlying COPD which has complicated his pulmonary course. - Lasix drip started 10/06 to help improve respiratory status, currently at 10 mg /hr - Sedation off since 10/08 at 1100. - Bronchoscopy on 10/10 with concerning lesion representing either malignancy or infection, biopsies sent, results pending. Please follow up. - Ventilator management per ICU team, appreciate the expertise 3. Febrile, not present on admission. Active. - Patient has had ongoing fevers of uncertain etiology. No significant fever overnight. - Concern for ventilator associated pneumonia is minimal as respiratory status has improved. Sputum cultures sent. - Workup results include: Upper and lower extremities negative for DVT. Lipase slightly elevated at 220. Pro-calcitonin 0.78. Repeat blood cultures 2/3 no growth to date. - Meropenem added back to antibiotic regimen to broaden coverage. - Current antibiotic and antifungal regiment includes: Meropenem, Daptomycin and Micafungin 4. Anasarca, not present on admission. Active. - Patient initially aggressively fluid resuscitated. - Patient 26 L positive cumulatively, down from a point of 33 L. - Lasix drip at 10 mg/hr. We will continue to aggressively diuresis. - Monitor electrolytes as patient may be developing a contraction alkalosis, consider Diamox 5. Septic shock requiring 3 pressors support, present on admission. Resolved. - Etiology multifactorial including disseminated zoster, staph bacteremia, and decubitus ulcer on left ischial tuberosity. - At [facility] patient became hypotensive and unresponsive to fluids and was started on three pressors and transferred to [facility]. - On admission here patient tachycardic, pro-calcitonin 21.82, lactic acid of 4.8 (lactic acid at [facility] was 1.4). - Norepinephrine titrated off on 09/28. Restarted 10/02. Titrated off again on . - Blood cultures and lumbar puncture as above. - Dr. Ritter consulted, appreciate the expertise. 6. Disseminated zoster, present on admission. Treatment completed. - Encephalitis, hepatitis, and pneumonitis secondary to disseminated zoster - Evidence of multiple lesions in multiple dermatomes. Currently crusted. - Acyclovir course of 17 days completed on 10/06 - Lumbar puncture with high opening pressure. CSF clear, WBC 19, RBC 2, Mononuclear WBCs 100, Polynuclear WBCs 0, Glucose 75, Protein 58. - EEG completed 10/02. Results as above. - MRI brain as above. - Dr. Ritter consulted, appreciate the expertise. 7. Acute kidney injury, present on admission. Resolved. - Patient presented to [facility] with a creatinine of 0.8, however over the subsequent days prior to his transfer here he was having a slow increase in his creatinine up to 1.6 and after pressure support his creatinine on arrival here was 2.21. - This acute kidney injury is likely due to hypoperfusion/prerenal secondary to dehydration and excessive pressure support with 2 peripheral vasoconstrictors and Levophed. Likely has a degree of ATN. - Lasix drip started 10/06. BUN and creatinine have continued to improve. - Continues to have good urine output. - Continue to monitor I and O and daily BMP - Nephrology consulted. Appreciate time and expertise. They have signed off at this time. 8. Hypervolemic hypernatremia, not present on admission. Active. Worsened. - Free water deficit is 7 L based on patient's admission weight. - Free water flushes at 200 ml Q1H. - D5 water increased to 100 cc/hr. - Medication selectively mixed in D5W - Continue to monitor with BMP. 9. Chronic lymphocytic leukemia, present on admission, undergoing oral chemotherapy prior to hospitalization. - No records available thus far but patient appears to be on current chemotherapy per family. - Neupogen given per Dr. Benavides's recommendations. - Heme/Onc consulted. Appreciate time and expertise. 10. Acute encephalopathy, present on admission. Active. - Patient has a recent history of acute confusion with hospital admission and resolution of confusion during those stays. 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 - CT head showed no acute intracranial process. Repeat 10/05 confirmed no changes. MRI results as above. - Lumbar puncture with high opening pressure. CSF clear, WBC 19, RBC 2, Mononuclear WBCs 100, Polynuclear WBCs 0, Glucose 75, Protein 58. - Per family report the patient is following commands. 11. Decubitus ulcer, present on admission. Improving. - Wound culture grew bacteroides fragillis. - Antibiotics as above. - Wound care consulted. 12. Yannick albicans present in urine, not present on admission. Active. - Micafungin 150 mg Q24H. 13. Normocytic anemia requiring transfusion, not present on admission. Active. - Multifactorial secondary to infection, CKD, hemodilution - Transfused 3 units PRBCs on 10/04-10/05. 14. Hypertension, not present on admission. Active. - Metoprolol 50 BID - Hydralazine 50 mg TID - Amlodipine 5 mg daily 15. Hyperglycemia, not present on admission. Active. - Insulin drip per protocol. Disposition: Patient remains critically ill and in the CCU. Sedation has been off since 10/08. Patient has sat at side of bed with PT. Overall prognosis guarded as patient continues to spike fevers. However today it seems has improved dramatically in his mentation per family report. I was only able to elicit a limited response. Dr. Kenyon discussed the trajectory with the patient' s family this morning. They understand that we are now a fork where the decision needs to be made about long-term care at [place] and a trach or extubation. Based on the improvements of the patient it is more likely that once he is no longer "acutely ill" he can be transferred to [place] in the next day or so if his fevers resolve and a plan can be made about his antibiotics and ongoing diuresis. GI Prophylaxis: H2 germaine VTE Prophylaxis: Sub-Q Heparin (Unfractionated) VTE Mechanical Devices: Intermittant Pneumatic CD Resuscitation Status: CPR: Attempt Resuscitation Limited Interventions: Cardioversion/Defibrillation, Intubation w Mech Vent, Medications and IV Fluid Attending Statement patient was seen with Dr Khan on 10/11/16,I agree with the history,exam, assessment and plan as outlined above . Aisha Khan DO Oct 11, 2016 15:07 Arvind Stockton MD Oct 12, 2016 08:12
--- NOTE | 2016-10-11 15:09 | PROG NOTE ---
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 INTERVAL HISTORY: He underwent a bronchoscopy yesterday. Please refer to the separate detailed procedure note. He remains on 50% FiO2 and 10 cm of PEEP. According to his family, he is tracking and nodding in response to questions. REVIEW OF SYSTEMS: Unable to obtain. PHYSICAL EXAMINATION: Vital signs reviewed. T-max of 37.6 at midnight. His highest temperature prior to that was 38.4 at 8:30 p.m. on October 09. Pulse 83, respirations 22, BP 145/52, sats 96% on 50% FiO2 and 10 cm of PEEP. General: Intubated, unresponsive. Opens eyes to voice. LABORATORIES: Reviewed. WBC going up higher to 18.3 today from 15.6 yesterday, platelets 287. Chemistry reviewed. Bicarb is up to 37. Sodium is up to 154. Creatinine and BUN are stable. Procalcitonin is up to 0.94. Cultures from BAL, Gram stain negative. Remaining cultures still pending. Chest x-ray today shows actually improvement in the left lower lobe infiltrate and some minimal right middle lobe infiltrate which could just be from the BAL that was done yesterday afternoon. ASSESSMENT AND RECOMMENDATIONS: 1. Acute hypoxic respiratory failure. 2. Septic shock--resolved. 3. Varicella zoster meningoencephalitis. 4. Acute kidney injury--resolved. 5. Methicillin-sensitive Staphylococcus aureus bacteremia. 6. Fevers and leukocytosis/systemic inflammatory response syndrome criteria. 7. CLL. 8. Suspected candidemia based on positive urine and sputum culture without blood culture. 9. Acute encephalopathy. A 76-year-old man with CLL, presenting with Varicella zoster, meningoencephalitis and MSSA bacteremia on September 22, with respiratory failure and septic shock. He has been off vasopressors for many days but remains encephalopathic, off all sedation since October 08. He has been slightly more responsive today, opening his eyes to family's voice and trying to follow commands, according to the family. Staff has not had such a significant response from him yet, however. He had an MRI of the brain done October 09 that showed no acute abnormality. I am most concerned about his fever, rising leukocytosis, and slightly worsened oxygenation. Please note that on bronchoscopy, there were a couple of nodules seen in the left mainstem bronchus that were biopsied, as well as a large mucus plug in the right middle lobe that was suctioned out. Samples from BAL are still pending, as is pathology from these nodules, but I would be concerned about malignancy and make sure we follow up on the pathology report to rule this out. His oxygenation after improving down to 35% FiO2 and 5 cm of PEEP a few days ago is back up to 50% and 10 cm of PEEP. I suspect he has an infection of some kind, although we have not yet isolated where and what. He is on daptomycin, micafungin and meropenem was added back on October 09. He completed acyclovir for Varicella zoster. I had a long conversation with the family at the bedside today. Multiple family members were there, around 10-15 people in the room, including all of his sons. At this point, they are somewhat heartened by his neurologic responsiveness, but I explained that his respiratory status has not improved significantly for us to consider extubation. At this point, we are looking at making a decision regarding tracheostomy. I also explained to them that likely the course we are looking is having a tracheostomy placed and a slow prolonged vent weaning which would probably be complicated by recurrent infections, given his CLL, as he has already shown. He appears to have had another infection at this moment. The family understands this and understands that this is going to be a slow, long recovery at best to a state worse than his previous baseline and that he may take a long time to get back to independent functioning, if ever. They are going to talk further amongst themselves and get back to me sometime today or tomorrow regarding their wishes--whether to proceed with tracheostomy and supportive care or to transition to comfort care. Critical care time is 60 minutes.
[2016-10-11] MEDS: Dexmedetomidine 400 mCg/100 mL 400 MCG in IV Premix 1 EACH IV SCH (15:14)
[2016-10-11] MEDS: Micafungin Inj 150 MG in Dextrose 5% 100 ML IV SCH (17:27)
[2016-10-11] MEDS: Heparin 5,000 Unit/mL Inj SUBQ SCH ×2 (17:32→21:02)
--- NOTE | 2016-10-11 19:53 | NUR ---
Family gathered @ bedside Updated frequently throughout day; Pt's son Duane states that wednesday they wish to speak with MDs regarding goals for pt half-way, trach versus not to trach, options as discussed with Dr. Kenyon today at length. At this time, family is continuing to discuss with each other.
[2016-10-12] VITALS (12 sets, daily range): BP systolic 125–174; BP diastolic 47–78; PULSE 62–88; RESP 18–22; O2SAT 94–98
[2016-10-12] MEDS: Meropenem Inj 1,000 MG in 0.9% Sodium Chloride 50 ML IV SCH ×3 (00:17→16:18)
[2016-10-12] MEDS: Chlorhexidine 0.12% 15 mL Oral Solution MT SCH ×6 (00:17→21:14)
--- NOTE | 2016-10-12 02:02 | NUR ---
neuro/vented .50 fio2 per vent, sats mid 90's, hob up, resp rate 20-23/20, sx sml amount of creamy/dee blood tinged sputum per ett, oral care done, ls- course t/o, no sedation, pt closes eyes with pupil assessment, pt grimaces with oral care, pt opens eyes to voice, pt tracks side to side but delayed response, no movement of extremities seen, cont rotation, routine turns, scd's on, generalized edema, lasix gtt at 10mg/hr, large uop, k level checked , kcl rider given, left picc intact bt present, liquid stool per fms, tf per orders marixa well with low residuals, hob up, insulin gtt per non dka protocol, bg=low to mid 100s, dsw infusing and 100ml h20 per hour per tf for elevated sodium level, family at bs during evening, very pleasant and attentive, see ccu flow sheet, plan:support resp status, Addendum: 10/12/16 at 0635 by BALJINDER FISCHER RN pulmonology paged to report abg results, awaiting return call,
[2016-10-12] MEDS: Insulin Human REGular Inj 100 UNIT in 0.9% Sodium Chloride-Pha MIX 100 ML IV SCH ×2 (02:29→23:12)
[2016-10-12] MEDS: Furosemide Inj 100 MG in 0.9% Sodium Chloride 90 ML IV SCH ×3 (02:29→21:14)
[2016-10-12 03:06] LABS: Mean Corpuscular Hemoglobin 28.9 pg (27.0-35.0); Mean Corpuscular Volume 99.6 fL (81-100); Platelet Count 271 bil/L (150-400)
[2016-10-12 03:30] LABS: BASOPHILS % (AUTO) 0 % (0-3); EOSINOPHILS % (AUTO) 1 % (0-5); MONOCYTES % (AUTO) 12 % (4-12); NEUTROPHILS % (AUTO) 45 % (40-74)
[2016-10-12] MEDS: Dexmedetomidine 400 mCg/100 mL 400 MCG in IV Premix 1 EACH IV SCH ×2 (04:26→22:06)
[2016-10-12] MEDS: Dextrose 5% 1,000 ML IV SCH ×2 (06:07→16:06)
[2016-10-12] MEDS ORDERED: KCl 40 mEq/100 mL Premix (K 3 - 3.7 & Creat < 2) IV ONE (06:15)
--- NOTE | 2016-10-12 06:19 | ABG ---
DateTimeAnalyzed 06:11:43 -_ pH ____7.535 - pCO2 ___49.0__ -mmHg pO2 ___54.7__ -mmHg HCO3- ___41.4__ -mmol/L ABE ___17.2__ -mmol/L tHb ____8.5__ -g/dL O2Hb ___89.8__ -% COHb ____1.7__ -% MetHb ___-0.3__ -% sO2 ___91.1__ -% FIO2 ___50.0__ -% PRVC 465 - PEEP ___10.0__ -cmH2O Set_RR 20 -b/min Vt __450.0__ -L Drawn By RB - Date/Time Notified____ 06:19:00 -_ Spontaneous_RR 22 -b/min Oxygen Device 1 VENTILATOR - Notified By RB - Notified Whom KUNNY HERLICKSON RN -_ B 741 -mmHg K+ ____3.2__ -mmol/L tO2 ___10.7__ -Vol% Jeevan test _Positive -
[2016-10-12] MEDS: 0.9% Sodium Chloride 250 ML IV SCH (07:44)
[2016-10-12] MEDS: LacriLube S.O.P. 3.5 Gm Ophthalmic Ointment BOTH_EYES SCH ×2 (07:44→21:14)
[2016-10-12] MEDS: DAPTOmycin Inj 750 MG in 0.9% Sodium Chloride 50 ML IV SCH (07:44)
[2016-10-12] MEDS: Heparin 5,000 Unit/mL Inj SUBQ SCH ×2 (07:47→21:15)
[2016-10-12] MEDS: Senna Leaf Extract 528 mg/15 mL Syrup PO SCH ×2 (07:48→21:15)
[2016-10-12] MEDS: Propofol Inj 1,000,000 MCG in IV Premix 1 EACH IV SCH (07:50)
[2016-10-12] MEDS: Famotidine Inj 20 MG in IV Premix 1 EACH IV SCH ×2 (08:54→21:24)
[2016-10-12] MEDS: Micafungin Inj 150 MG in Dextrose 5% 100 ML IV SCH (08:55)
--- NOTE | 2016-10-12 09:00 | PROG NOTE ---
[address] [address] PROGRESS NOTE PATIENT: BRITTNEY CASILLAS : 1940 MR#: [id number] ADMIT: 09/21/2016 JOB ID: [id number] DATE: 10/12/2016 REASON FOR FOLLOW UP: Disseminated varicella zoster infection including encephalitis, respiratory failure, MSSA bacteremia, coagulase-negative Staph bacteremia, and unexplained pulmonary infiltrates. INTERVAL HISTORY: Over the past 48 hours since I have last seen this patient, he has actually suffered a setback in his respiratory requirements in terms of FiO2 increased. Even as that has occurred though, it seems as if his mental status has continued to improve. Today when I walked into the room, the patient looks immediately at me and tracks me around the room. He appears awake but does not follow any commands, nor does he shake his head yes or no to any questions that are asked of him. This case was discussed extensively at the bedside with the ICU team as well as the ICU nurse. PHYSICAL EXAMINATION: Reveals a critically ill gentleman lying in the ICU. He has been afebrile now for three days following some fever spikes which occurred on October 05 and , and continuing through October 09. His pulse is in the 70s, blood pressure 158/60, and he is not on any vasopressor agents. He is on 70% FiO2 and 10 of PEEP, however. Examination of the eyes reveals that the hemorrhagic conjunctivitis seen previously has resolved and his eyes now appears essentially normal. Oral exam is notable for the endotracheal tube and orogastric tube. There is no more herpetic lesions on the lips. His neck is without notable adenopathy or JVD. His lungs are increasingly clear to my exam with scattered rales and rhonchi at the bases. Cardiac tones regular rate and rhythm. The abdomen is soft and nontender. Prado catheter is present. The margin of the scrotum seems to be decreasing somewhat. Lower extremity edema is still present but also slightly better. No new skin rashes noted. LABORATORIES: Include white count 17,000, which is little changed over the past three days. The diff still includes 8% bands, 3% metamyelocytes and 2% myelocytes, signifying a severe left shift. His creatinine is down to 0.98, which is probably near his baseline. His liver function tests are actually improving. Recall we had been concerned about them a couple of days ago. His AST is 56, his ALT 59, and his alk phos is normal. Albumin is 3. Procalcitonin has dropped from 0.94 yesterday to 0.6 today. Recall that when he first came in, of course, it was over 30, almost now three weeks ago. Micro studies include negative blood cultures from yesterday. The bronch wash from the 4th has basically no growth and special studies including AFB smears have all been negative so far. Urine from the 3rd negative. Fungal blood cultures from the 3rd negative. Sputum from the 3rd just grew some Gisel. Blood cultures from the 1st negative. Our last positive culture of note was in late September, only had two urines that were positive for Gisel albicans, and a set of blood cultures which grew coag-negative Staph from a line that was later pulled. Recall that way back when the patient was first admitted, we did have blood which grew Staph aureus. That was back on September 21, now three weeks ago, and he had a positive Staph aureus and Bacteroides from a decubitus ulcer. Chest x-ray continues to show bibasilar infiltrates. 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 He is now somewhat improved in terms of mental status, but still not fully interactive. He does now at least appear awake and does track appropriately when people enter the room or walk around. A recent MRI scan showed no great degree of brain destruction due to the VZV encephalitis which is a positive as well. Unfortunately, the patient's FiO2 requirements have actually increased over the last couple days. Recall that late last week he was down to 35% on the vent, and he is now all the way back up to 70. The nature of this waxing and waning respiratory failure is unclear at this point, as we have multiple bronchoscopies and other studies which have not identified a clear pathogen. He remains on daptomycin for both the MSSA in his blood as well as the coag-negative Staph that was isolated last week. Additionally, he remains on meropenem which was started empirically several days ago when he started to spike unexplained high fevers. He is on micafungin which is indicated because of the positive sputum and urine growing Gisel albicans. RECOMMENDATIONS: 1. I would continue with dalbavancin and meropenem at this time. 2. Will go ahead and discontinue the micafungin on October 14, which is two days from now, which will completed a 2 week course. 3. This case discussed with the ICU team. 4. Will continue to closely follow this patient with you for signs of continued improvement. 5. We await a decision about tracheostomy in the near future. MTDD
--- NOTE | 2016-10-12 09:27 | DRSVH ---
PROCEDURE: X-RAY CHEST ONE VIEW, PORTABLE ([id number]) INDICATIONS: resp failure TECHNIQUE: One view of the chest was acquired. COMPARISON: [facility], CR, XR CHEST 1VW (PORTABLE), 10/11/2016, 3:25. FINDINGS: Surgical changes and devices: Stable position of the ETT, nasogastric tube and left PICC. Lungs and pleura: Bibasilar airspace opacities and small left pleural effusion unchanged. Lungs are clear. Mediastinum: Mediastinal contours appear normal. Heart size is normal. Bones and chest wall: No suspicious bony lesions. Overlying soft tissues appear unremarkable. IMPRESSION: Persistent bibasilar atelectasis and/or pneumonia, as well as small dependent left pleura l effusion. Dictated by: Francisco Javier Antonio Sigifredo Interpreted: Mike Monteiro MD on 10/12/2016 at 9:25 Transcribed by: ISAURA on 10/12/2016 at 9:26 Approved by: Mike Monteiro M.D. on 10/12/2016 at 9:50
--- NOTE | 2016-10-12 13:31 | PCM.PALLBR ---
Palliative Care Recommendation 78-year-old gentleman admitted with staphylococcal sepsis and disseminated VZV, including meningoencephalitis, in the setting of recurrent poor prognosis CLL. Remains intubated and mechanically ventilated with limited recovery to this point. Palliative medicine consulted to assist family members and determination of goals of care. Please see below for details of my lengthy conversations with the patient's family and other caregivers today. Summary of palliative recommendations: Palliative Plan: -Symptom management (Pain/other) - Patient remains intubated and ventilator dependent. Patient has been entirely off sedation since last week. - Patient in no obvious distress at this time- other symptomatic management per medical/critical care teams Per family wishes, anticipating transition to comfort care with compassionate extubation tomorrow. Continue with current supportive care until tomorrow at family request. -DPOA/Advanced Directives/POLST - Per family decision on the evening of 10/07/16, continues to be DO NOT RESUSCITATE. In light of the anticipated transition to comfort care tomorrow, no further aggressive interventions including pressors, antiarrhythmics, etc. - Previous POLST completed by the patient and his PCP/MD, on September 18, 2016 indicated patient's wishes for aggressive resuscitation, but family members are all in agreement that that document failed to fully express the patient's wishes- and did not indicate his wishes were he to find himself in a situation where his recovery to independent life would be essentially impossible. -Family/emotional support - 4 sons Duane, Bill, Piyush and Juan. Duane's is Perlita. Niece Nakia. -Spiritual support - not discussed at this time Family Goals: 1. Family wants to be told the truth about his illness, even if it is unpleasant. 2. Family would like to be told prognosis when it can be predicted, to better guide treatment decisions. 3. Patient would not want to be bed bound and unable to care for himself Additional Medical Diagnoses with primary management by Hospitalist team include : 1. Staphylococcus bacteremia, present on admission. Active. 2. Septic shock requiring 3 pressors support, present on admission. Resolved. 3. Disseminated zoster, present on admission. Treatment completed. 4. Acute hypoxic respiratory failure, present on admission. Active. 5. Febrile, not present on admission. Active. 6. Acute kidney injury, present on admission. Improving. 7. Hypernatremia, not present on admission. Active. 8. Chronic lymphocytic leukemia, present on admission, undergoing oral chemotherapy prior to hospitalization. 9. Acute encephalopathy, present on admission, active. 10. Decubitus ulcer, present on admission, active. 11. 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 12.Anemia requiring transfusion Problems: End of Life Preferences DO NOT RESUSCITATE in the event of acute cardiac event. Transitioning to comfort care on 10/13. Not a candidate for pressors, antiarrhythmics, other critical care interventions. Goals of Care 1. Family wants to be told the truth about his/her illness, even if it is unpleasant. 2. Family would like to be told prognosis when it can be predicted, to better guide treatment decisions. 3. Patient would not want to be bed bound and unable to care for himself Disposition Anticipate extubation and comfort care starting 10/13/16 Resuscitation Status Resuscitation Status: DNR/DNI:Do Not Resuscitate/Intubate POLST Updates/Changes Previous POLST?: Yes POLST Last Review Date: Oct 05, 2016 Antibiotics: Determine Use or Limitations Artificially Admin Nutrition: Trial Period Tube Feeding POLST Discussed with: Spouse/Other (Daughter in Law Perlita and Niece Nakia) POLST Review Outcome: Form Voided . Advanced Care Planning Address: Code status change, Comfort care Pain: None Total time 80 minutes; >50% face to face with patient and family, providing counselling regarding plans and recommendations, and in care coordination with his medical teams. Of the above total time, 50 minutes counseling for advanced care planning with the patient's family and multiple members of the caregiving team. copies to: Thomas Coronel MD; Gerardo Thomas MD; Biju Landry DO; Tres Ritter MD Palliative Brief Note Date of Service Oct 12, 2016 . Returned to reevaluate patient. Had visited over the weekend and spoken with Dr. Kenyon about his progress on Wednesday. Reviewed results of his bronchoscopy and reviewed other updated records in the EMR in detail. Today, his case was reviewed on critical care rounds with the team, and I later spoke individually with Stone Bonner and Makayla regarding care plans and the family's wish for transition to comfort care. Spoke with his bedside nurse on multiple occasions as well and talked at length with his family members, including his son Duane, [id number] Gina and others on multiple occasions. When I first arrived to see the patient, he was lying in bed, intubated. Eyes are open occasionally. Tracking is intermittent- at times he will turn his eyes towards the side of his body that is touched, at other times he seems to turn his eyes towards voices, but this is not consistent. Unclear whether he blinks in response to command. I have been unable to get him to move his extremities in any way to command, though he is occasionally seen to move a finger spontaneously. I cannot get him to deep breathe, cough or do other activities to command. On exam, vital signs are noted. Presently on 50% FiO2 with PEEP 10. Required increased FiO2 briefly in the night to 70% because of desaturation but this is improved again this morning. On exam, his skin is darkly complected, with multiple seborrheic keratoses and other pigmented lesions, warm and dry. Head and neck exam otherwise negative for acute findings. Pupils are reactive and extraocular movements appear intact. Moves his lips but it is not clear whether this is just reacting to the presence of the tube- no reliable oral response to commands or consistent with speech attempts. Lungs with dependent crackles bilaterally. Heart sounds regular. Abdomen is obese, soft and without apparent tenderness or peritoneal signs. Diffuse severe edema and puffiness of all extremities. Neurologic exam as noted above. Talked at length with his family members who have come to the difficult decision to extubate and transition to comfort care. They have made this decision in light of their understanding of his overall status and prognosis. The patient had always been very clear that he never wanted to live in a fdc long-term/be bedridden/lose his independence. Given his lengthy hospitalization, limited recovery and limited potential for further recovery to independence, all of this in the setting of his poor prognosis CLL, family has decided that they would prefer that he be kept comfortable and allowed to pass away peacefully/naturally following extubation. A last grandson is arriving late this evening to say goodbye, and the family plans to request compassionate extubation and comfort care tomorrow. Shar Love MD Oct 12, 2016 13:31
--- NOTE | 2016-10-12 13:36 | NUR ---
NUTRITION FOLLOW-UP ASSESS: 76 YO M admitted to CCU with acute hypoxic respiratory failure, severe sepsis, MSSA bacteremia and disseminated zoster with meningoencephalitis. Pt remains ventilator dependent without sedation, with respiratory status not improving significantly. Dr. Kenyon discussed placing a tracheostomy, and slowly weaning from ventilator. There is concern about tracheostomy given multiple infections, and are awaiting family's decision. Pt is tolerating TF at goal rate. Substituted Pulmocare formula for Glucerna while Glucerna is out of stock. PMHX: CLL with poor prognosis, HTN, hypercholesterolemia, GERD, cataracts, COPD. LABS: Reviewed. Na 150, K+ 3.4, CO2 38, BUN 50, Glu 133, Ca 7.6, AST 56, ALT 59, Alb 3.0, TG 166, Lipase 210, Procalcitonin 0.60 MEDS: Reviewed. Lopressor, Heparin. GI: Liquid stool via FMS, 175 ml (10/12). SKIN: Mario 12, Disseminated zoster nearly resolved, non-stageable pressure injury on his left ischium. WT: 122.1 kg, BMI: 40.9 kg/m2, Admit wt: 116.0 kg (BMI 38.9 kg/m2), IBW: 70 kg NUTRITION SUPPORT: Glucerna 1.5 @ goal rate 70 ml/hr, providing 2310 kcal, 127 g protein, sufficient to meet 100% nutrient needs. Flush dose remains 100 ml/hr, to provide a total of 3620 ml/d H2O. ESTIMATED NEEDS: BMI (based on Admit Wt; re-estimated 10/07) Calories: 8448-4067 kcal/day (20-22 kcal/kg Admit BW) Protein: 85-105 g/day (1.2-1.5 g/kg IBW) Fluid: 2400 ml/day (~1 ml/kcal/d) NUTRITION DIAGNOSIS: 1) Inadequate oral intake related to decreased ability to consume sufficient energy as evidenced by current vent / NPO status - IMPROVED WITH ENTERAL FEEDING AT GOAL RATE. 2) Altered nutrition-related labs related to uncontrolled blood glucose, as evidenced by recent blood glucose labs in the upper 200's - SIGNIFICANTLY IMPROVED. NUTRITION INTERVENTION: 1) Substitute Pulmocare for Glucerna 1.5 formula while Glucerna is out of stock. Start Pulmocare at 35 ml/hr and advance 10 ml q 4 hrs as tolerated to goal rate of 75 ml/hr, providing 2475 kcal and 103g of protein, and 1295 ml/d H20 meeting 100% of estimated calorie and protein needs. 2) Continue w/ water flush of 100 ml every hr. IV fluids remain at rate of 100 ml/hr, providing a total of 5895 total ml/d H2O (TF formula + free H20 + IV Fluids). Clarified w/ MD for accuracy. 3) Switch back to Glucerna 1.5 formula when available @ goal rate of 70 ml/hr providing 2310 kcal and 127g protein to provide 100% of calorie and protein needs. MONITOR/EVALUATE: Enteral feeding tolerance, vent / NPO status, wt, labs, GI, POC, nutrition status. Follow per high nutrition risk guidelines. Addendum: 10/12/16 at [address] Auxiliary student documentation reviewed. I agree with above documentation. Kristofer Arango, MARC, CD
--- NOTE | 2016-10-12 14:57 | PROG NOTE ---
[address] [address] PROGRESS NOTE PATIENT: BRITTNEY CASILLAS : 1940 MR#: [id number] ADMIT: 09/21/2016 JOB ID: [id number] DATE: 10/12/2016 PULMONARY CRITICAL CARE FOLLOWUP NOTE: PROBLEM LIST: 1. Acute hypoxic respiratory failure. 2. Herpes zoster meningoencephalitis. 3. Acute kidney injury. 4. Methicillin-sensitive Staphylococcus aureus bacteremia, resolved. 5. Persistent fevers. 6. Altered mental status. 7. 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 8. Anasarca. SUBJECTIVE: Temperature 36.5. Last significant temp elevation was 37.7, 36 hours ago. Pulse mid 70s. Respiratory rate 20 with ventilator set at 20, blood pressure 158/60. O2 sat on FiO2 of 70%, PEEP of 10, is 97%. Remaining at 96% on FiO2 0.5. Urine output 6.8 L. Input 5.6 L. General appearance: No acute distress. Response: Patient blinks his eyes at times. Does not respond in any way to voice. Other examiners think he is alerting to voice and tracking though making no attempts at cognitive response. Chest: Coarse crackles bilaterally, more so on the right. Peak inspiratory pressure about 26-28, plateau 22-24. Heart: Heart tones normal. Abdomen is soft. Bowel tones present. Extremities: Warm. LABORATORY DATA: Shows a white count of 17,000, with 45 polymorphonuclears, 29 lymphocytes, 8 bands, 3 metamyelocytes, 2 myelocytes. Hemoglobin relatively stable at 8.2. Platelet count stable at 271,000. Sodium 150, potassium 3.4, chloride 100, CO2 is 38. BUN 50, creatinine 0.9, calcium 7.6 with an albumin of 3. Phosphorus 4. Magnesium 2. AST 56 and is somewhat improved. ALT 59 and relatively stable. Chest x-ray shows persistent bibasilar atelectasis. ASSESSMENT: 1. Hypoxemic respiratory failure. Doing maybe a little bit better. Not sure arterial blood gases reflect accurate status. Sats running in the mid 90s to as high as 100, yet pO2 on blood gas was only 54 on FiO2 of 0.5, PEEP of 10. Tidal volume 450, with a rate of 20, shows a of 49, a of 5.3. Had significant problems with secretions. Dr. Kenyon did a heroic bronchoscopy, productive of what sounds like bronchial casts. 2. Altered mental status. Some examiners feel he has some cognitive function. I do not get much. Whether he just gets tired and is unable to respond or whether his response is severely limited due to severe neuropathy is unclear. Moving his eyes a little bit. No movement of any of the extremities. Still with a fair amount of edema. 3. Metabolic alkalosis due to diuresis. Will need to keep his potassium high. Renal function, however, seems to be improving, implying that the diuresis is being tolerated well by the patient. 4. CLL. Problem with the CLL is regard to any future treatment in the face of this infection. Question at this point is what he would want. Family seems to think that he would not want any of this done. States that he would not want to be in a shelter, presumably the rest of his life. They feel his thoughts about full invasive measures related to a short period of time with good chance of recovery. His chance of recovery is rather bleak, especially as it is unclear as to how well we are going to be able to treat his CLL in the future in the face of the infection. With an unfavorable prognosis with regard to the CLL, with a concern over rising white count and concern regarding infection with further chemotherapy as well as the underlying CLL. PLAN: 1. Continue current regimen. 2. Push up potassium to the high 4's to help with his metabolic alkalosis. Do not know that we need to slow down with the diuresis at this point as he is so egregiously fluid overloaded. 3. Continue current ventilator settings. 4. Discuss family's wishes regarding institution of comfort care in the next day or so with the rest of the medical and nursing staff. Time spent in critical care is 1 hour 3 minutes.
--- NOTE | 2016-10-12 17:41 | PCM.PNMED ---
Subjective Date of Service Oct 12, 2016 Subjective Overnight: Pt has been grimacing and opening eyes to stimulus overnight, but no meaningful actions noted. No acute events overnight. Today: He appeared to blink on command, although this is questionable. He moves his fingers to stimulus of his hand, but does not move his legs or feet on command or stimulus. He does appear to turn his head and look towards noises, but whether this is meaningful is questionable. Continues on Lasix and insulin drips. Had a lengthy discussion with the family, along with Dr. Thomas and Dr. Love and the family has a good understanding of the current situation. They understand that the patient is very unlikely to regain his baseline function and unlikely to regain his mental function. Furthermore his recovery will likely be long and drawn out, and would require a tracheostomy and extended stay in [place]. They state that he would not wish to be sustained for an extended amount of time on a ventilator. As such, they have decided to extubate him tomorrow. Exam Vital Signs Vital Sign - Last Date Time Temp Pulse Resp B/P Pulse Ox O2 Delivery O2 Flow Rate FiO2 10/12/16 16:28 74 131/49 96 60 10/12/16 12:00 22 Mechanical Ventilator 10/12/16 07:58 36.5 Intake and Output 10/11/16 10/11/16 10/12/16 Cumulative From/Thru 15:00 23:00 07:00 09/21/16 19:30 - 10/12/16 06:21 Intake Total 3134 ml 2889 ml 912206 ml Output Total 4230 ml 1825 ml 78039 ml Balance -1096 ml 1064 ml 80097 ml Intake Oral 60 ml 150 ml IV Total 1544 ml 1452 ml 57157 ml Tube Feeding 580 ml 636 ml 26245 ml Packed Cells 925 ml Tube Irrigant 950 ml 801 ml 48973 ml Output Urine Total 3650 ml 1650 ml 72378 ml Stool Total 300 ml 175 ml 3985 ml Gastric Drainage Total 280 ml 2505 ml Chest Tube Drainage Total 390 ml # Bowel Movements 8 Exam General: Intubated and sedated; no acute distress; withdraws to pain, opens eyes spontaneously, may be beginning to follow commands. HEENT: ETT in place Cardiac: Regular rate and rhythm, no murmurs appreciated Respiratory: Faint crackles at bases bilaterally; no wheezes Abdomen: Soft, nontender, nondistended; obese Extremities: Bilateral upper and lower extremity pitting edema and dependent sacral edema. Excoriations/blisters present on bilaterally wrists. Neuro: Patient sedated and intubated. Lab and Diagnostics Result Diagram: 10/12/16 0300 10/12/16 1034 Microbiology CSF positive for VZV. MRSA screen negative. Buttock culture positive for staphylococcus aureus resistant to tetracycline and bacteroides fragilis. Blood cultures 2:4 positive for staphylococcus aureus resistant to tetracycline. Sputum positive for staphylococcus aureus resistant to tetracycline. Clostridium difficile PCR negative. Fungal blood cultures x 2 pending. Urine grew yannick albicans. X-Rays, CTs and MRIs X-RAY CHEST ONE VIEW, PORTABLE IMPRESSION: No change in multifocal pneumonia. Dictated by: Adalberto Barker M.D. on 10/04/2016 at 7:40 Approved by: Adalberto Barker M.D. on 10/04/2016 at 7:41 MRI BRAIN WITH AND WITHOUT CONTRAST IMPRESSION: 1. Increased T2 signal in the parietal and occipital lobes identified by prior MRI obtained 09/15/16 is a most completely resolved compatible with resolving posterior reversible encephalopathy syndrome (PRES). 2. Moderate to severe diffuse volume loss. 3. No areas of infarction. 4. Minimal frontal subcortical white matter chronic microvascular ischemic changes. 5. Pansinusitis. 6. Fluid in the mastoid air cells bilaterally. Please correlate with clinical findings to differentiate serous fluid from mastoiditis. 7. Image quality degraded by patient motion. Dictated by: Merry Robison MD, PhD on 10/09/2016 at 14:32 12-lead ECG EKG: Normal sinus rhythm at 116 bpm, left axis deviation present, QTC 478, mild widening of QRS complex (104 ms). . Additional Diagnostics DateTimeAnalyzed 05:07:16 -_ pH ____7.489 - 7.350 7.450 pCO2 ___53.4__ -mmHg 35.0 45.0 pO2 ___72.0__ -mmHg 70.0 100 HCO3- ___40.5__ -mmol/L 22.0 26.0 EEG IMPRESSION: This electroencephalogram performed in the comatose state is abnormal. The slow background activity is suggestive of moderate cerebral cortical dysfunction/ encephalopathy. This is a nonspecific finding and may be seen in a wide variety of different clinical conditions, including secondary to medication effect, as well as medical conditions such as toxic metabolic, hypoxic, inflammatory, autoimmune and infectious states. If clinically indicated, a repeat study performed off all fall sedative agents may be helpful. The propofol was held before this electroencephalogram was performed. Clinical correlation is advised. Seamus Cee MD 10/04/16 1904. Assessment & Plan Magdaleno Villegas is a 76-year-old male with CLL currently on chemotherapy with past medical history significant for COPD who was transferred from [facility] due to septic shock and respiratory failure secondary to staph bacteremia and disseminated zoster now off sedation since 10/08. Hospital day 21. Vent day 21. 1. Staphylococcus bacteremia, present on admission. Active. - Blood cultures positive on two separate occasions. First with staphylococcus aureus and then with coag negative staphylococcus. Repeat blood cultures drawn on 10/05 with no growth. IJ removed 10/06 and tip sent for culture. No growth to date. - Nafcillin continuos infusion from 09/24-09/30. - Meropenem 09/30-10/06, restarted again 10/10 - Daptomycin started 10/05 and continued due to ongoing fevers of uncertain etiology. - Dr. Ritter consulted, appreciate time and expertise. 2. Acute hypoxic respiratory failure, present on admission. Active. - Patient presented with severe hypoxia. Patient also has suspected underlying COPD which has complicated his pulmonary course. - Chest tube placed 09/25 due to hypoxemia secondary to large pleural effusion. Removed on 10/06. - Lasix drip started 10/06 to help improve respiratory status, currently at 10 mg /hr - Sedation off since 10/08 at 1100. - Bronchoscopy on 10/10 with concerning lesion representing either malignancy or infection, biopsies sent, results pending. - Ventilator management per ICU team, appreciate the expertise 3. Febrile, not present on admission. Active. Improving. - Patient has had ongoing fevers of uncertain etiology. No fever for over 24 hours. Concern for ventilator associated pneumonia is minimal as respiratory status has improved. Workup results include: Upper and lower extremities negative for DVT. Lipase slightly elevated at 220. Pro-calcitonin 0.78. Repeat blood cultures 2/3 no growth to date.Sputum cultures negative. - Current antibiotic and antifungal regiment includes: Meropenem, Daptomycin and Micafungin 4. Anasarca, not present on admission. Active. - Patient initially aggressively fluid resuscitated. Patient 26 L positive cumulatively, down from a point of 33 L. - Lasix drip at 10 mg/hr. We will continue to aggressively diuresis. - Monitor electrolytes as patient may be developing a contraction alkalosis, consider Diamox 5. Septic shock requiring 3 pressors support, present on admission. Resolved. - Etiology multifactorial including disseminated zoster, staph bacteremia, and decubitus ulcer on left ischial tuberosity. At [facility] patient became hypotensive and unresponsive to fluids and was started on three pressors and transferred to [facility]. On admission here patient tachycardic, pro-calcitonin 21.82, lactic acid of 4.8 (lactic acid at [facility] was 1.4). - Norepinephrine titrated off on 09/28. Restarted 10/02. Titrated off again on . - Dr. Ritter consulted, appreciate the expertise. 6. Disseminated zoster, present on admission. Treatment completed. - Encephalitis, hepatitis, and pneumonitis secondary to disseminated zoster. Evidence of multiple lesions in multiple dermatomes. Currently crusted. Lumbar puncture with high opening pressure. CSF clear, WBC 19, RBC 2, Mononuclear WBCs 100, Polynuclear WBCs 0, Glucose 75, Protein 58. EEG completed 10/02. Results as above. MRI brain as above. - Acyclovir course of 17 days completed on 10/06 - Dr. Ritter consulted, appreciate the expertise. 7. Acute kidney injury, present on admission. Resolved. - Patient presented to [facility] with a creatinine of 0.8, however over the subsequent days prior to his transfer here he was having a slow increase in his creatinine up to 1.6 and after pressure support his creatinine on arrival here was 2.21. - Likely due to hypoperfusion/prerenal secondary to dehydration and excessive pressure support with 2 peripheral vasoconstrictors and Levophed. Likely has a degree of ATN. - Lasix drip started 10/06. BUN and creatinine have continued to improve. - Continues to have good urine output. - Continue to monitor I and O and daily BMP - Nephrology consulted. Appreciate time and expertise. They have signed off at this time. 8. Hypervolemic hypernatremia, not present on admission. Active. Worsened. - Free water deficit is 7 L based on patient's admission weight. - Free water flushes at 100 ml Q1H. - D5 water increased to 100 cc/hr. - Medication selectively mixed in D5W - Continue to monitor with BMP. 9. Chronic lymphocytic leukemia, present on admission, undergoing oral chemotherapy prior to hospitalization. - No records available thus far but patient appears to be on current chemotherapy per family. - Neupogen given per Dr. Benavides's recommendations. - Heme/Onc consulted. Appreciate time and expertise. 10. Acute encephalopathy, present on admission. Active. - Patient has a recent history of acute confusion with hospital admission and resolution of confusion during those stays. Etiology likely secondary to sepsis , infection, and VZV encephalitis. CT head showed no acute intracranial process. Repeat 10/05 confirmed no changes. MRI results as above. Lumbar puncture as above. - Per family report the patient is following commands. 11. Decubitus ulcer, present on admission. Improving. - Wound culture grew bacteroides fragillis. - Antibiotics as above. - Wound care consulted. 12. Yannick albicans present in urine, not present on admission. Active. - Micafungin 150 mg Q24H. 13. Normocytic anemia requiring transfusion, not present on admission. Active. - Multifactorial secondary to infection, CKD, hemodilution - Transfused 3 units PRBCs on 10/04-10/05. 14. Hypertension, not present on admission. Active. - Metoprolol 50 BID - Hydralazine 50 mg TID - Amlodipine 5 mg daily 15. Hyperglycemia, not present on admission. Active. - Insulin drip per protocol. Disposition: Patient remains critically ill and in the CCU, but beginning to slowly awaken from sedation. Sedation has been off since 10/08. Revisited the discussion on the current situation with the family and they have decided to compassionately extubate him tomorrow. Will continue current care until tomorrow and discuss with family at that time. GI Prophylaxis: H2 germaine VTE Prophylaxis: Sub-Q Heparin (Unfractionated) VTE Mechanical Devices: Intermittant Pneumatic CD Resuscitation Status: DNR/DNI:Do Not Resuscitate/Intubate Attending Statement The patient was seen and examined together with Dr. Herrera on 10/12/2016 and I agree with the history, exam and plan as outlined in the note above. . Sal Herrera Oct 12, 2016 17:41 Coleman Velásquez MD Oct 12, 2016 20:00
--- NOTE | 2016-10-12 17:49 | NUR ---
P: Respiratory Distress I: Pt off sedation and pain medication. Opens his eyes, but does not track or follow commands. Tube feeding increased to 45cc and residual 25cc. Insulin gtt infusing Algo 5. Lasix gtt 10mg/hr. D5W 100cc/hr. [place]ado patent and drained 2200cc of light yellow urine. FMS patent and drained 400cc of liquid brown stool. Turned Q 2 hours. Family at bedside and updated on pt's condition and plan of care. E: Stable S: No restraints needed. Frequent rounding.
[2016-10-13] VITALS (8 sets, daily range): BP systolic 125–142; BP diastolic 49–61; PULSE 63–78; RESP 18–21; O2SAT 96–99
[2016-10-13] MEDS: Chlorhexidine 0.12% 15 mL Oral Solution MT SCH ×3 (01:40→08:53)
[2016-10-13] MEDS: Meropenem Inj 1,000 MG in 0.9% Sodium Chloride 50 ML IV SCH (01:40)
--- NOTE | 2016-10-13 01:47 | NUR ---
Move from CCU#2018 to CCU#2017 ...-
[2016-10-13] MEDS: Dextrose 5% 1,000 ML IV SCH (03:53)
[2016-10-13] MEDS: Furosemide Inj 100 MG in 0.9% Sodium Chloride 90 ML IV SCH ×2 (03:53→14:30)
--- NOTE | 2016-10-13 04:18 | NUR ---
P: Resp I: Ventilated at 60% FI02, Peep 10 E: Sats in the mid high 90s. Intermittently breathing over vent rate. Tele SR. BP stable. Afebrile. Opens eyes to touch and verbal stimuli. Makes eye contact w/ some tracking. Unable to follow cues. Not moving extremities. Titrating TF to goal, residuals 120ml, 180ml. NonDka insulin drip. UOP responsive to lasix drip. Repositioning. No s/sx of pain or discomfort.
--- NOTE | 2016-10-13 08:49 | PROG NOTE ---
[address] [address] PROGRESS NOTE PATIENT: BRITTNEY CASILLAS : 1940 MR#: [id number] ADMIT: 09/21/2016 JOB ID: [id number] DATE: 10/13/2016 REASON FOR FOLLOW UP: Disseminated VZV with encephalitis, MSSA bacteremia, the coag-negative Staph bacteremia, ventilator-dependent respiratory failure. INTERVAL HISTORY: We now start the day here in the ICU for this unfortunate gentleman with underlying poor prognosis CLL, disseminated zoster and MSSA bacteremia. The patient has now been off sedatives for several days but is basically unarousable this morning, though he does withdraw when one attempts to open his eyes and shine a light, but otherwise does not follow any commands or open eyes or respond to voice. He continues on the ventilator at 60% FiO2 and 10 of PEEP, but is not on any vasopressor agents. This case was discussed extensively this morning with Dr. López with the Palliative Care team. There are intense discussions with the family at this point about possible withdrawal of care as we are not at a branch point where the patient needs a trach, with transfer to [place] for prolonged rehab and then an uncertain future with his CLL, or to have care withdrawn. PHYSICAL EXAM: Reveals an afebrile gentleman, temperature 36.9, pulse 74, respiratory rate 16, blood pressure 138/55, saturating well on 60% and 10 of PEEP. The patient, as noted, does not do anything but withdraw from light when light is shined in his eyes. He has arcus senilis. Pupils are equal and reactive. No conjunctival abnormalities. The oral cavity, endotracheal tube, orogastric tube. Neck without notable abnormalities his PICC lines in good position. Lungs have scattered rales and rhonchi at the bases. Little change from before. Cardiac tones without new murmur. Abdomen soft and apparently nontender. No focal masses are present. The scrotum continues to decrease in size and has somewhat less peripheral edema than he has in recent days, though still with 2+ edema on both lower extremities. No new skin rashes noted. LABORATORIES: Include a white count 17,000 today, with 8% bands, 3% metamyelocytes. His creatinine is 0.98. That was yesterday's value. AST and ALT both in the upper 50s, 56 and 59, respectively. Albumin 3. No new serologic studies are available. Micro includes negative influenza screen. Negative blood cultures. Bronch wash from the 4th all negative so far including regular cultures, and AFB stains. Multiple prior blood cultures are negative. Yesterday's chest x-ray showed persistent bibasilar atelectasis and/or pneumonia. Little change. IMPRESSION: This patient remains critically ill and has been ventilator dependent despite over three weeks of aggressive intensive care unit care. His problems include the disseminated zoster including encephalitis as well as methicillin-sensitive Staphylococcus aureus bacteremia of unknown source that were present on admission. Since then, he has had over three weeks on the ventilator and has had some nosocomial fevers which we have worked up extensively without definitive diagnosis. At this point, his respiratory status seems to be going the wrong way and an urgent decision is required as to whether or not he should have a trach and transfer to [place] for likely very long rehabilitation, or whether care should be withdrawn given his poor prognosis of chronic lymphocytic leukemia, his still very altered mental status as well as his very compromised respiratory situation. RECOMMENDATIONS: 1. Will continue with daptomycin and meropenem as broad-spectrum antibiotics at this time. 2. The micafungin is scheduled to finish tomorrow, which will complete a two week course. 3. We await the most recent VZV PCR I sent on his wrist the other day, though I strongly suspect this will be negative. Will continue to monitor this case with you. This case discussed extensively today with the ICU team as well as Palliative Care.
[2016-10-13] MEDS: Famotidine Inj 20 MG in IV Premix 1 EACH IV SCH (08:53)
[2016-10-13] MEDS: LacriLube S.O.P. 3.5 Gm Ophthalmic Ointment BOTH_EYES SCH (08:53)
[2016-10-13] MEDS: 0.9% Sodium Chloride 250 ML IV SCH (08:54)
[2016-10-13] MEDS ORDERED: Morphine 100 mg/100 mL NS 100 MG in IV Premix 1 EACH IV SCH (10:25)
[2016-10-13] MEDS ORDERED: LORazepam 100 mg/100 mL NS 100 MG in IV Premix 1 EACH IV SCH (10:25)
[2016-10-13] MEDS ORDERED: Haloperidol 5 mg/mL Inj IVPUSH PRN (10:25)
[2016-10-13] MEDS ORDERED: Atropine 1% 5 mL Ophthalmic Solution PO PRN (10:25)
--- NOTE | 2016-10-13 14:49 | PCM.PNMED ---
Subjective Date of Service Oct 13, 2016 Subjective Overnight: Patient has been off sedation and pain medication, opening his eyes, initially not tracking to sound or following commands, but began to track more consistently as time passed. Today: He tracks and makes eye contact when his name is called. When asked if he was in pain he nodded his head. Exam Vital Signs Vital Sign - Last Date Time Temp Pulse Resp B/P Pulse Ox O2 Delivery O2 Flow Rate FiO2 10/13/16 11:54 76 142/61 96 60 10/13/16 07:56 36.9 18 Mechanical Ventilator Intake and Output 10/12/16 10/12/16 10/13/16 Cumulative From/Thru 15:00 23:00 07:00 09/21/16 19:30 - 10/13/16 05:07 Intake Total 3406 ml 3014 ml 238982 ml Output Total 2600 ml 2300 ml 021400 ml Balance 806 ml 714 ml 31256 ml Intake Oral 150 ml IV Total 1671 ml 1380 ml 44131 ml Tube Feeding 634 ml 633 ml 36378 ml Packed Cells 925 ml Tube Irrigant 1101 ml 1001 ml 83591 ml Output Urine Total 2200 ml 2075 ml 64367 ml Stool Total 400 ml 225 ml 4610 ml Gastric Drainage Total 0 ml 2505 ml Chest Tube Drainage Total 390 ml # Bowel Movements 8 Exam General: Intubated, no acute distress; withdraws to pain, opens eyes spontaneously, tracks and nods head to questions. HEENT: ETT in place Cardiac: Regular rate and rhythm, no murmurs appreciated Respiratory: Coarse breath sounds present. Abdomen: Soft, nontender, nondistended; obese Extremities: Bilateral upper and lower extremity pitting edema Neuro: Patient sedated. Lab and Diagnostics Result Diagram: 10/12/16 0300 10/12/16 1034 Microbiology CSF positive for VZV. MRSA screen negative. Buttock culture positive for staphylococcus aureus resistant to tetracycline and bacteroides fragilis. Blood cultures 2:4 positive for staphylococcus aureus resistant to tetracycline. Sputum positive for staphylococcus aureus resistant to tetracycline. Clostridium difficile PCR negative. Fungal blood cultures x 2 pending. Urine grew yannick albicans. X-Rays, CTs and MRIs X-RAY CHEST ONE VIEW, PORTABLE IMPRESSION: No change in multifocal pneumonia. Dictated by: Adalberto Barker M.D. on 10/04/2016 at 7:40 Approved by: Adalberto Barker M.D. on 10/04/2016 at 7:41 MRI BRAIN WITH AND WITHOUT CONTRAST IMPRESSION: 1. Increased T2 signal in the parietal and occipital lobes identified by prior MRI obtained 09/15/16 is a most completely resolved compatible with resolving posterior reversible encephalopathy syndrome (PRES). 2. Moderate to severe diffuse volume loss. 3. No areas of infarction. 4. Minimal frontal subcortical white matter chronic microvascular ischemic changes. 5. Pansinusitis. 6. Fluid in the mastoid air cells bilaterally. Please correlate with clinical findings to differentiate serous fluid from mastoiditis. 7. Image quality degraded by patient motion. Dictated by: Merry Robison MD, PhD on 10/09/2016 at 14:32 12-lead ECG EKG: Normal sinus rhythm at 116 bpm, left axis deviation present, QTC 478, mild widening of QRS complex (104 ms). . Additional Diagnostics DateTimeAnalyzed 05:07:16 -_ pH ____7.489 - 7.350 7.450 pCO2 ___53.4__ -mmHg 35.0 45.0 pO2 ___72.0__ -mmHg 70.0 100 HCO3- ___40.5__ -mmol/L 22.0 26.0 EEG IMPRESSION: This electroencephalogram performed in the comatose state is abnormal. The slow background activity is suggestive of moderate cerebral cortical dysfunction/ encephalopathy. This is a nonspecific finding and may be seen in a wide variety of different clinical conditions, including secondary to medication effect, as well as medical conditions such as toxic metabolic, hypoxic, inflammatory, autoimmune and infectious states. If clinically indicated, a repeat study performed off all fall sedative agents may be helpful. The propofol was held before this electroencephalogram was performed. Clinical correlation is advised. Seamus Cee MD 10/04/16 4879. Assessment & Plan Magdaleno Villegas is a 76-year-old male with CLL currently on chemotherapy with past medical history significant for COPD who was transferred from [facility] due to septic shock and respiratory failure secondary to staph bacteremia and disseminated zoster now off sedation since 10/08. Per discussion with family, he will be compassionately extubated today. - Hospital and ventilator day 23. 1. Staphylococcus bacteremia, present on admission. Active. - Blood cultures positive on two separate occasions. First with staphylococcus aureus and then with coag negative staphylococcus. Repeat blood cultures drawn on 10/05 with no growth. IJ removed 10/06 and tip sent for culture. No growth to date. - Nafcillin continuos infusion from 09/24-09/30. - Meropenem 09/30-10/06, restarted again 10/10 - Daptomycin started 10/05 and continued due to ongoing fevers of uncertain etiology. - Dr. Ritter consulted, appreciate time and expertise. 2. Acute hypoxic respiratory failure, present on admission. Active. - Patient presented with severe hypoxia. Patient also has suspected underlying COPD which has complicated his pulmonary course. - Chest tube placed 09/25 due to hypoxemia secondary to large pleural effusion. Removed on 10/06. - Lasix drip started 10/06 to help improve respiratory status, currently at 10 mg /hr - Sedation off since 10/08 at 1100. - Bronchoscopy on 10/10 with concerning lesion representing either malignancy or infection, biopsies sent, results pending. - Ventilator management per ICU team, appreciate the expertise 3. Febrile, not present on admission. Active. Improving. - Patient has had ongoing fevers of uncertain etiology. No fever for over 24 hours. Concern for ventilator associated pneumonia is minimal as respiratory status has improved. Workup results include: Upper and lower extremities negative for DVT. Lipase slightly elevated at 220. Pro-calcitonin 0.78. Repeat blood cultures 10/09 no growth to date.Sputum cultures negative. - Current antibiotic and antifungal regiment includes: Meropenem, Daptomycin and Micafungin 4. Anasarca, not present on admission. Active. - Patient initially aggressively fluid resuscitated. Patient 26 L positive cumulatively, down from a point of 33 L. - Lasix drip at 10 mg/hr. We will continue to aggressively diuresis. 5. Septic shock requiring 3 pressors support, present on admission. Resolved. - Etiology multifactorial including disseminated zoster, staph bacteremia, and decubitus ulcer on left ischial tuberosity. At [facility] patient became hypotensive and unresponsive to fluids and was started on three pressors and transferred to [facility]. On admission here patient tachycardic, pro-calcitonin 21.82, lactic acid of 4.8 (lactic acid at [facility] was 1.4). - Norepinephrine titrated off on 09/28. Restarted 10/02. Titrated off again on . - Dr. Ritter consulted, appreciate the expertise. 6. Disseminated zoster, present on admission. Treatment completed. - Encephalitis, hepatitis, and pneumonitis secondary to disseminated zoster. Evidence of multiple lesions in multiple dermatomes. Currently crusted. Lumbar puncture with high opening pressure. CSF clear, WBC 19, RBC 2, Mononuclear WBCs 100, Polynuclear WBCs 0, Glucose 75, Protein 58. EEG completed 10/02. Results as above. MRI brain as above. - Acyclovir course of 17 days completed on 10/06 - Dr. Ritter consulted, appreciate the expertise. 7. Acute kidney injury, present on admission. Resolved. - Patient presented to [facility] with a creatinine of 0.8, however over the subsequent days prior to his transfer here he was having a slow increase in his creatinine up to 1.6 and after pressure support his creatinine on arrival here was 2.21. - Likely due to hypoperfusion/prerenal secondary to dehydration and excessive pressure support with 2 peripheral vasoconstrictors and Levophed. Likely has a degree of ATN. - Lasix drip started 10/06. BUN and creatinine have continued to improve. - Continues to have good urine output. - Continue to monitor I and O and daily BMP - Nephrology consulted. Appreciate time and expertise. They have signed off at this time. 8. Hypervolemic hypernatremia, not present on admission. Active. Worsened. - Free water deficit is 7 L based on patient's admission weight. - Free water flushes at 100 ml Q1H. - D5 water increased to 100 cc/hr. - Medication selectively mixed in D5W - Continue to monitor with BMP. 9. Chronic lymphocytic leukemia, present on admission, undergoing oral chemotherapy prior to hospitalization. - No records available thus far but patient appears to be on current chemotherapy per family. - Neupogen given per Dr. Benavides's recommendations. - Heme/Onc consulted. Appreciate time and expertise. 10. Acute encephalopathy, present on admission. Active. - Patient has a recent history of acute confusion with hospital admission and resolution of confusion during those stays. Etiology likely secondary to sepsis , infection, and VZV encephalitis. CT head showed no acute intracranial process. Repeat 10/05 confirmed no changes. MRI results as above. Lumbar puncture as above. - Per family report the patient is following commands. 11. Decubitus ulcer, present on admission. Improving. - Wound culture grew bacteroides fragillis. - Antibiotics as above. - Wound care consulted. 12. Yannick albicans present in urine, not present on admission. Active. - Micafungin 150 mg Q24H. 13. Normocytic anemia requiring transfusion, not present on admission. Active. - Multifactorial secondary to infection, CKD, hemodilution - Transfused 3 units PRBCs on 10/04-10/05. 14. Hypertension, not present on admission. Active. - Metoprolol 50 BID - Hydralazine 50 mg TID - Amlodipine 5 mg daily 15. Hyperglycemia, not present on admission. Active. - Insulin drip per protocol. Disposition: Patient remains critically ill and in the CCU, but beginning to slowly awaken from sedation. Sedation has been off since 10/08. Revisited the discussion on the current situation with the family and they have decided to compassionately extubate him. GI Prophylaxis: H2 germaine VTE Prophylaxis: Sub-Q Heparin (Unfractionated) VTE Mechanical Devices: Intermittant Pneumatic CD Resuscitation Status: DNR/DNI:Do Not Resuscitate/Intubate Attending Statement The patient was seen and examined together with Dr. Herrera on 10/13/2016 and I agree with the history, exam and plan as outlined in the note above. . Sal Herrera Oct 13, 2016 13:21 Coleman Velásquez MD Oct 16, 2016 17:22
--- NOTE | 2016-10-13 15:30 | NUR ---
Comfort: PO medications held this AM, D5W, Lasix Insulin drips and tube feeding DC'd by Dr Love this AM. Morphine gtt was started at 1145 @ 1mg/hr appears to be comfortable. pt opens eyes spontaneously and tracks with eyes, intermittently moves head from side to side. Does not follow commands, no purposeful movement at this time. Family at bedside. Repositioning and oral care for comfort. Comfort extubation expected this evening at 1600.
--- NOTE | 2016-10-13 15:37 | NUR ---
spiritual care: routine pt receiving latter-day lay retail agent visits per request from conversation with pt's sister.
--- NOTE | 2016-10-13 17:37 | PCM.PALLBR ---
Palliative Brief Note Date of Service Oct 13, 2016 . Returned to see the patient and his family multiple times through the day. Reviewed his case on several occasions with his consulting physicians, his primary team and regularly with his bedside nurse. During the day, his physical exam remained basically stable. His eyes were open and would occasionally track to the side that was stimulated (whether verbally or by contact) but there was no evidence of other interaction, no response to commands, and his extremities remained completely immobile but for occasional small movements of several fingers. Patient never consistently responded to any sorts of commands or directions, by the medical team or by his family. Had additional meetings with the family, reviewing patient's status, prognosis and options for care, and ultimately the family maintained their wish for compassionate extubation and comfort care. There was recognition that the likelihood of his recovering to independent life was nil, and that the most likely course would be permanent usp care, with overwhelming likelihood of recurrent infections and survival at most measured in months. Family were all in agreement that this was something the patient would absolutely not have wanted (family also noted that he had explicitly stated he would never want to be sustained with artificial nutrition for more than 7-10 days). After final meeting with family, proceeded with extubation. Comfort medications including morphine and lorazepam were administered and patient peacefully with family members at bedside at 1700. Total time spent with patient today 105 minutes, greater than 50% in direct contact with the patient and family and in care coordination with the rest of his medical team. Of the above, 80 minutes spent in direct contact with the patient and his family managing his end-of-life care. Shar Love MD Oct 13, 2016 17:37
--- NOTE | 2016-10-13 18:00 | NUR ---
Comfort Extubation/Expiration: Pt was extubated at 1630. Time of [address] Love. Donor referral line was called referral #[id number].
--- NOTE | 2016-10-14 13:32 | PATH ---
SURGICAL PATHOLOGY Attending Physician:Maira Kenyon MD CASE STATUS: Signed Out PATIENT NAME: Magdaleno Villegas PID: [id number] : 1940 DATE COLLECTED:10/10/2016 00:00 SPECIMEN: Lung Biopsy CLINICAL HISTORY: 1). LEFT MAINSTEM NODULE BIOPSIES FINAL DIAGNOSIS: 1.LEFT MAINSTEM BRONCHUS NODULE BIOPSY: FRAGMENTS OF BRONCHIAL MUCOSA AND SUBMUCOSA WITH SUBMUCOSAL HYALINIZING FIBROSIS. AMYLOID STAIN IS NEGATIVE. NEGATIVE FOR ATYPIA AND MALIGNANCY. ICD10 CODE J98.09 GROSS DESCRIPTION: The specimen is received in one formalin filled container labeled with the patient's name, sublabeled" "left mainstem nodule" and consists all 3 portions of tissue which aggregate to 0.2 x 0.2 x 0.2 CM. The specimen is entirely submitted in one cassette. 10/12/2016 DAC MICRO DESCRIPTION: See diagnosis. ICD-9 CODES: CPT CODES: 1: 98179, 25368 Electronically Signed Out Rafa Thomson MD [facility] [address], [place] [address] Technical component performed at [facility], [address] [place] [address] Ave[address], [place], [address]
--- NOTE | 2016-10-14 18:17 | PCM.DC.MED ---
Discharge Summary Date of Service Oct 14, 2016 Dates of Hospitalization Date of Hospital Admission Sep 21, 2016 at 19:00 Date of Discharge: Oct 13, 2016 Providers: Admitting Physician: Biju Landry DO Primary Care Physician: Nopsyed Attending Physician: Biju Landry DO Diagnosis at Time of Discharge Diagnosis at Time of Discharge 1. Staphylococcus bacteremia, present on admission. Active. 2. Acute hypoxic respiratory failure, present on admission. Active. 3. Febrile, not present on admission. Active. Improving. 4. Anasarca, not present on admission. Active. 5. Septic shock requiring 3 pressors support, present on admission. Resolved. 6. Disseminated zoster, present on admission. Treatment completed. 7. Acute kidney injury, present on admission. Resolved. 8. Hypervolemic hypernatremia, not present on admission. Active. Worsened. 9. Chronic lymphocytic leukemia, present on admission, undergoing oral chemotherapy prior to hospitalization. 10. Acute encephalopathy, present on admission. Active. 11. Decubitus ulcer, present on admission. Improving. 12. Yannick albicans present in urine, not present on admission. Active. 13. Normocytic anemia requiring transfusion, not present on admission. Active. 14. Hypertension, not present on admission. Active. 15. Hyperglycemia, not present on admission. Active. Procedures XRay, CTs & MRIs X-RAY CHEST ONE VIEW, PORTABLE IMPRESSION: No change in multifocal pneumonia. Dictated by: Adalberto Barker M.D. on 10/04/2016 at 7:40 Approved by: Adalberto Barker M.D. on 10/04/2016 at 7:41 MRI BRAIN WITH AND WITHOUT CONTRAST IMPRESSION: 1. Increased T2 signal in the parietal and occipital lobes identified by prior MRI obtained 09/15/16 is a most completely resolved compatible with resolving posterior reversible encephalopathy syndrome (PRES). 2. Moderate to severe diffuse volume loss. 3. No areas of infarction. 4. Minimal frontal subcortical white matter chronic microvascular ischemic changes. 5. Pansinusitis. 6. Fluid in the mastoid air cells bilaterally. Please correlate with clinical findings to differentiate serous fluid from mastoiditis. 7. Image quality degraded by patient motion. Dictated by: Merry Robison MD, PhD on 10/09/2016 at 14:32 ECG 12 Lead EKG: Normal sinus rhythm at 116 bpm, left axis deviation present, QTC 478, mild widening of QRS complex (104 ms). . Other Diagnostics DateTimeAnalyzed 05:07:16 -_ pH ____7.489 - 7.350 7.450 pCO2 ___53.4__ -mmHg 35.0 45.0 pO2 ___72.0__ -mmHg 70.0 100 HCO3- ___40.5__ -mmol/L 22.0 26.0 EEG IMPRESSION: This electroencephalogram performed in the comatose state is abnormal. The slow background activity is suggestive of moderate cerebral cortical dysfunction/ encephalopathy. This is a nonspecific finding and may be seen in a wide variety of different clinical conditions, including secondary to medication effect, as well as medical conditions such as toxic metabolic, hypoxic, inflammatory, autoimmune and infectious states. If clinically indicated, a repeat study performed off all fall sedative agents may be helpful. The propofol was held before this electroencephalogram was performed. Clinical correlation is advised. Seamus Cee MD 10/04/16 217. Brief History from the H&P of Shine Garcia D.O. "76-year-old male with CLL recently on chemotherapy, significant smoking history and likely COPD, recent visit to [facility] in [place], and ongoing hypertension directly transferred to [facility] from [facility] due to acute septic shock secondary to presumed aspiration pneumonia. Patient was not initially admitted at [facility] due to ongoing weakness, confusion, nosebleed , chest pain, and continuing shingles. The family checked in on the patient at [facility] where the patient was found to be less conversive, mildly confused, and had ongoing nosebleed. Family denies any recent fevers or chills, cough, or respiratory distress. Patient was treated at [facility] and was getting progressively better from a cognition standpoint before developing hypotension and acute respiratory distress early this morning at 0100. By 10 AM the patient was requiring BiPAP and was soon intubated thereafter. Hypotension seems to been refractory to fluid resuscitation, although there is some confusion over whether the patient only received 1 L normal saline, or if he received more. In any case, the patient was then placed on 3 pressors, norepinephrine, phenylephrine, and vasopressin. Once stabilized the patient was transferred to [facility] and arrived here around 1999. Recent visit to [facility] on 09/15/2016 was due to ongoing shingles, blurry vision, and acute worsening cognition/confusion. At that time the patient had a high blood pressure in the 180s or above and MRI CT were suggestive of ongoing progressive reversible encephalopathic syndrome. Patient was placed on acyclovir orally, and cream, and sent home with reassurance. By Wednesday the patient presented to [facility] for the reasons noted above. Patient has no sick contacts at assisted living. Initial sign out from [facility] is that the patient likely has aspiration pneumonia. On chest x-ray there is a progressive right lower lobe infiltrate, and increasing left pleural effusion with some suggestion of consolidation. Patient was started on Zosyn this morning at [facility], and again, we are unsure of the amount of fluid that the patient was given at this time. On arrival to [facility] , the patient was on 100% FiO2, 12 of PEEP, respiratory rate of 35, and tidal volumes of 600ml. Initial blood gas at [facility] showed the patient's pH to be 7.35, however initial blood gas here appears to show a pH of 7.1. Patient's arterial line soon became inaccessible and anesthesia was consulted without being able to reestablish that line; blood pressure cuff currently showing blood pressures above 130/80. Venous blood gases are ordered and pending. Patient was also transferred with a double lumen PICC line in the left arm, and an additional central line was placed by anesthesia in the right IJ. Pressors were reduced after patient was stabilized, including stopping phenylephrine and vasopressin, but leaving Levophed. Patient was initially fluid resuscitated with 1-2 L normal saline, with plans for additional bolus. Nimbex, fentanyl, propofol/ Versed were continued or started upon arrival. The Nimbex due to the patient fighting the vent and high peak pressures. Discussion was had with respiratory therapy about decreasing the tidal volume of the patient to 6 mL/kg and reducing RR after blood gas was obtained. Labs from the [facility] are currently in the chart with selective review here: White count 6.0, hemoglobin 11.8, hematocrit of 34.4, platelets of 164 Sodium 132, potassium 4.3, chloride 100, bicarbonate 21, BUN 40, creatinine is 2.4 to glucose is 121, calcium 7.8, lactic acid 1.4, last troponin was 0.02 on September 17 Influenza A and B rapid screens are negative" Hospital Course: 76yoM hospital day 14 with past medical history significant for CLL on oral chemotherapy transferred to [facility] from [facility] due to acute septic shock secondary to 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 The patient has been recently changed to Daptomycin to treat a gram positive cocci which is new and was not treated with the Meropenem. He is to get an MRI today given the patient's mentation does not seem to be improving, [facility] ID Dr. Ritter has stated that 1/3 of cases of VZV encephalitis causes irreversible damages to the patient's brain with the patient often completely debilitated. Palliative Plan: Today we had a discussion with patient's daughter in law Perlita and niece Nakia. We were attempting to get some background information about the patient prior to this illness. We are currently awaiting results of an MRI in the hopes that this can direct our discussion with family tomorrow about the patient's prognosis. Hospital Course Pt was transitioned to comfort care per wishes of family after a lengthy discussion regarding his status, prognosis, and his possible clinical course if a more aggressive medical approach. He was compassionately extubated at 1630. Time of [address] Love. Exam Vital Signs (Last) Date Time Temp Pulse Resp B/P Pulse Ox O2 Delivery O2 Flow Rate FiO2 10/13/16 13:38 78 19 129/56 97 Mechanical Ventilator 10/13/16 11:54 60 10/13/16 07:56 36.9 Test 09/21/16 20:10 09/22/16 05:40 09/22/16 08:45 09/22/16 10:20 Troponin T 0.034ug/L (0.0-0.011) Total Creatine Kinase 698U/L (21-232) Urine Legionella pneumophilia Ag Negative (Negative) Random Vancomycin Level 12.6ug/mL Rx Test 09/22/16 12:00 09/23/16 11:48 09/24/16 05:30 09/25/16 04:15 Cryptococcus Antigen Negative (Negative) TB Test (QFT) Gold In Tube Indeterminate (Negative) TB Test (QFT) Incubation Comment (.) TB Test (QFT) Mitogen 0.46IU/mL (.) TB Test (QFT) Antigen 0.03IU/mL (.) TB Test (QFT) Antigen Minus Nil <0.00IU/mL (.) TB Test (QFT) TB - Nil 0.04IU/mL (.) TB Test (QFT) Positive Criteria Comment (.) TB Test (QFT) Interpretation Comment (.) CSF Appearance Clear (CLEAR) CSF Color Colorless (COLORLESS) CSF WBC 19/mm3 (0-5) CSF RBC 2/mm3 CSF Mononuclear WBCs 100% CSF Polynuclear WBCs 0% CSF Other Cells 0 CSF Glucose 75mg/dL (45-90) CSF Total Protein 58mg/dL (15-45) Prealbumin 4mg/dL (20-40) Thyroid Stimulating Hormone (TSH) 0.494uIU/mL (0.450-4.500) Reticulocyte Count,Calculated 0.9% (0.6-2.6) Uric Acid 7.7mg/dL (2.6-7.2) Iron Level 11ug/dL (35-150) Total Iron Binding Capacity 98ug/dL (250-450) Percent Iron Saturation 11%sat (15-50) Unsaturated Iron Binding 86.6ug/dL Globulin (PEP) 1.6g/dL (2.2-3.9) Albumin/Globulin Ratio 0.8 (0.7-1.7) Mgnmf-7-Lqfkbnfyl 0.4g/dL (0.0-0.4) Txecu-9-Hisygvpyx 0.6g/dL (0.4-1.0) Beta Globulins 0.5g/dL (0.7-1.3) Gamma Globulins 0.2g/dL (0.4-1.8) Serum Monoclonal Protein Not observedg/dL Protein Electrophoresis Comment Comment (.) Protein Electrophoresis Interpret Comment (.) Test 09/27/16 04:45 09/27/16 11:15 09/29/16 04:55 09/30/16 06:00 Hemoglobin A1c 6.8% (4.8-5.6) Acyclovir Level 12mcg/mL (.) Blood Smear Pathologist Review Ionized Calcium (Calculated) 4.02mg/dL (3.5-5.2) Hematology Comments Test 09/30/16 09:46 10/02/16 04:00 10/05/16 06:25 10/06/16 10:30 Hold Urine Received (Received) Lactic Acid Level 1.8mmol/L (0.4-2.0) Fungal Antibodies 51pg/mL (.) Haptoglobin 294mg/dL (34-200) Direct Bilirubin 0.4mg/dL (0.0-0.3) Lactate Dehydrogenase 249U/L (100-190) Prothrombin Time 11.4sec (8.1-12.5) Prothromb Time International Ratio 1.06ratio Test 10/09/16 05:30 10/09/16 16:15 10/10/16 04:45 10/10/16 09:40 Blast Cells % 2% (0-0) Urine Color Yellow (YELLOW) Urine Appearance Clear (CLEAR,HAZY) Urine pH 6.0 (5.0-8.0) Urine Specific [place] 1.015 (1.003-1.035) Urine Protein Tracemg/dL (NEG,TRACE) Urine Glucose (UA) Negativemg/dL (NEGATIVE) Urine Ketones Negativemg/dL (NEGATIVE) Urine Occult Blood Large (NEGATIVE) Urine Nitrite Negative (NEGATIVE) Urine Bilirubin Negative (NEGATIVE) Urine Urobilinogen Normalmg/dL (NORMAL) Urine Leukocyte Esterase Moderate (NEGATIVE) Urine RBC 3-10/hpf (0-2) Urine WBC 6-10/hpf (0-5) Urine Epithelial Cells None/hpf (NONE-MOD) Urine Crystals None seen (NONE SEEN) Urine Bacteria Few/hpf (NONE-FEW) Urine Hyaline Casts None/lpf (NONE) Urine Granular Casts None seen (NONE SEEN) Urine Waxy Casts None seen (NONE SEEN) Urine Red Blood Cell Casts None seen (NONE SEEN) Urine White Blood Cell Casts None seen (NONE SEEN) Urine Mucus Present (None Seen) Urine Trichomonas None seen (NONE SEEN) Urine Yeast None (NONE SEEN) Urinalysis Comment None Urine Culture Reflexed Indicated Nucleated Red Blood Cells 2/100 WBC (0-24) Test 10/11/16 06:00 10/12/16 03:00 10/12/16 10:34 Triglycerides Level 166mg/dL (0-149) Lipase 210U/L (13-60) White Blood Count 17.0th/mm3 (3.8-10.1) Red Blood Count 2.84mil/mm3 (4.40-5.80) Hemoglobin 8.2g/dL (13.8-17.2) Hematocrit 28.3% (41.0-50.0) Mean Corpuscular Volume 99.6fL (81-100) Mean Corpuscular Hemoglobin 28.9pg (27.0-35.0) Mean Corpuscular Hemoglobin Concent 29.0% (32.0-37.0) Red Cell Distribution Width 21.9% (12.3-15.4) Platelet Count 271bil/L (150-400) Neutrophils (%) (Auto) 45% (40-74) Lymphocytes (%) (Auto) 29% (14-46) Monocytes (%) (Auto) 12% (4-12) Eosinophils (%) (Auto) 1% (0-5) Basophils (%) (Auto) 0% (0-3) Band Neutrophils % 8% (1-5) Metamyelocytes % 3% (0-0) Myelocytes % 2% (0-0) Sodium Level 150mEq/L (134-144) Chloride Level 100mEq/L (97-108) Carbon Dioxide Level 38mmol/L (18-29) Blood Urea Nitrogen 50mg/dL (8-27) Creatinine 0.98mg/dL (0.76-1.27) Estimat Glomerular Filtration Rate 79mL/min (>59) Glucose Level 133mg/dL (60-99) Calcium Level 7.6mg/dL (8.5-10.1) Phosphorus Level 4.0mg/dL (2.5-4.9) Magnesium Level 2.0mg/dL (1.6-2.6) Total Bilirubin 0.6mg/dL (0.0-1.2) Aspartate Amino Transf (AST/SGOT) 56U/L (0-50) Alanine Aminotransferase (ALT/SGPT) 59U/L (0-44) Alkaline Phosphatase 109U/L (25-160) Total Protein 4.5g/dL (6.4-8.4) Albumin 3.0g/dL (3.4-5.0) Procalcitonin 0.60ng/mL (0.00-0.08) Potassium Level 3.8mEq/L (3.5-5.2) Microbiology Results CSF positive for VZV. MRSA screen negative. Buttock culture positive for staphylococcus aureus resistant to tetracycline and bacteroides fragilis. Blood cultures 2:4 positive for staphylococcus aureus resistant to tetracycline. Sputum positive for staphylococcus aureus resistant to tetracycline. Clostridium difficile PCR negative. Fungal blood cultures x 2 pending. Urine grew yannick albicans. Attending Statement The patient was discussed with Dr. Herrera on 10/14/2016 and I agree with the history as outlined in the note above. . Sal Herrera Oct 14, 2016 18:17 Coleman Velásquez MD Oct 16, 2016 17:24
--- NOTE | 2016-10-15 16:17 | PATH ---
SURGICAL PATHOLOGY Attending Physician:Maira Kenyon MD CASE STATUS: Signed Out PATIENT NAME: Magdaleno Villegas PID: [id number] : 1940 DATE COLLECTED:10/10/2016 00:00 SPECIMEN: Bronchial Lavage Pooled Bilateral Thin Prep CLINICAL HISTORY: Bronchial Lavage Pooled Bilateral No ICD-10 code given FINAL DIAGNOSIS: BILATERAL LUNGS, BRONCHOALVEOLAR LAVAGE: NEGATIVE FOR MALIGNANT CELLS. SEE COMMENT. ICD10 code R91.8 NOTE: A ThinPrep slide and cell block slide show mostly fragmented acellular debris with a single multinucleated reactive ciliated bronchial epithelial cell. Special stains for GMS and PAS are negative for fungal organisms, with appropriate control staining. GROSS DESCRIPTION: Received fresh on 10/13/2016 is approximately 20 cc of cloudy colorless fluid. Prepared are one cell block and one ThinPrep slide. hk MICRO DESCRIPTION: See diagnosis. ICD-9 CODES: CPT CODES: 1: 71078, 63327, 55516, 58061-43 Electronically Signed Out Marly Aguirre MD [facility] Pathology [facility] [address], [place] [address] Technical component performed at [facility], [facility] [address], [place], [address]
== END 2016-10-13 17:00 | disposition expired | DRG 853 ==
LOC: CCU 19:00
PROVIDERS: ADMIT Specialist; ATTEND Hospitalist
PROC: 5A1955Z Respiratory Ventilation, Greater than 96 Consecutive Hours (ICD-10-PCS; principal; 2016-09-21)
PROC: 4A033R1 Measurement of Arterial Saturation, Peripheral, Percutaneous Approach (ICD-10-PCS; 2016-09-21)
PROC: 02HV33Z Insertion of Infusion Device into Superior Vena Cava, Percutaneous Approach (ICD-10-PCS; 2016-09-21)
PROC: 009Y3ZX Drainage of Lumbar Spinal Cord, Percutaneous Approach, Diagnostic (ICD-10-PCS; 2016-09-23)
PROC: 0W9930Z Drainage of Right Pleural Cavity with Drainage Device, Percutaneous Approach (ICD-10-PCS; 2016-09-25)
PROC: 4A00X4Z Measurement of Central Nervous Electrical Activity, External Approach (ICD-10-PCS; 2016-10-02)
PROC: 30233N1 Transfusion of Nonautologous Red Blood Cells into Peripheral Vein, Percutaneous Approach (ICD-10-PCS; 2016-10-04)
PROC: 30233N1 Transfusion of Nonautologous Red Blood Cells into Peripheral Vein, Percutaneous Approach (ICD-10-PCS; 2016-10-05)
PROC: 0B958ZX Drainage of Right Middle Lobe Bronchus, Via Natural or Artificial Opening Endoscopic, Diagnostic (ICD-10-PCS; 2016-10-10)
PROC: 0B9B8ZX Drainage of Left Lower Lobe Bronchus, Via Natural or Artificial Opening Endoscopic, Diagnostic (ICD-10-PCS; 2016-10-10)
PROC: 0BB78ZX Excision of Left Main Bronchus, Via Natural or Artificial Opening Endoscopic, Diagnostic (ICD-10-PCS; 2016-10-10)
DX: A41.01 Sepsis due to Methicillin susceptible Staphylococcus aureus (principal); R65.21 Severe sepsis with septic shock; J96.01 Acute respiratory failure with hypoxia; J69.0 Pneumonitis due to inhalation of food and vomit; G93.40 Encephalopathy, unspecified; N17.0 Acute kidney failure with tubular necrosis; E87.2 Acidosis; B02.7 Disseminated zoster; B02.0 Zoster encephalitis; Z68.41 Body mass index [BMI] 40.0-44.9, adult; J90 Pleural effusion, not elsewhere classified; C91.12 Chronic lymphocytic leukemia of B-cell type in relapse; E87.0 Hyperosmolality and hypernatremia; B37.49 Other urogenital candidiasis; E87.3 Alkalosis; Z87.891 Personal history of nicotine dependence; L89.320 Pressure ulcer of left buttock, unstageable; E66.01 Morbid (severe) obesity due to excess calories; E83.51 Hypocalcemia; I13.10 Hypertensive heart and chronic kidney disease without heart failure, with stage 1 through stage 4 chronic kidney disease, or unspecified chronic kidney disease; N18.9 Chronic kidney disease, unspecified; I48.0 Paroxysmal atrial fibrillation; E87.6 Hypokalemia; T50.2X5A Adverse effect of carbonic-anhydrase inhibitors, benzothiadiazides and other diuretics, initial encounter; R94.5 Abnormal results of liver function studies; Z66 Do not resuscitate; R73.9 Hyperglycemia, unspecified